=== PATIENT | male | born 1950 | race Caucasian/White ===

== ENCOUNTER 2020-02-20 15:26 | Outpatient (CLI) | payer MEDICARE, OTHER, SELFPAY ==
--- NOTE | ~2020-02-20 | XR_ITS ---
XR ankle RT min 3V DATE: 02/20/2020 16:01 INDICATION: Right ankle pain, swelling TECHNIQUE: 4 views COMPARISON: None FINDINGS: There is prominent medial soft tissue swelling of the ankle. No recent fracture or dislocation of the ankle or disruption of the ankle mortise is detected. There is no periosteal reaction or bone destruction. There is an approximately 2 mm bony density adjacent t o the medial tip of the medial malleolus which may represent a small old fracture fragment, accessory ossicle or less likely an intra-articular loose body. Mild posterior calcaneal enthesopathy. IMPRESSION: Medial soft tissue swelling 2 mm bony density adjacent to medial tip of medial malleolus, possibly a small old fracture fragment or accessory ossicle, less likely an intra-articular loose body Reviewed, dictated and finalized at location A. IMPRESSION: Medial soft tissue swelling 2 mm bony density adjacent to medial tip of medial malleolus, possibly a small old fracture fragment or accessory ossicle, less likely an intra-articular loos e body
== END 2020-02-20 15:27 | disposition home or self-care (01) ==
LOC: ANHIMG 15:32
PROVIDERS: PCP Family Medicine; Visit Provider Physician Assistant
DX: M25.471 Effusion, right ankle (principal); M79.89 Other specified soft tissue disorders
CPT/HCPCS: 73610

== ENCOUNTER 2020-03-11 21:03 | Inpatient (IN) | payer MEDICARE, OTHER, SELFPAY ==
--- NOTE | ~2020-03-11 | NM_ITS ---
EXAMINATION: NM mary stress w perfusion DATE: 03/12/2020 16:09 INDICATION: Chest pain TECHNIQUE: Rest images were obtained following intravenous administration of 9.7 mCi Tc99m tetrofosmi n (Myoview). The patient was infused intravenously with Lexiscan (Regadenoson). Then, 31.7 mCi Tc99m tetrofosmin (Myoview) was administered intravenously, and stress images were obtained. Data was recon structed into short axis and horizontal and vertical long axis SPECT images. Gated SPECT images were also obtained. COMPARISON: None. FINDINGS: Moderate severity reversible perfusion defects at the mid inferolateral and basilar inferio r segments and partially reversible perfusion defect at the basilar inferolateral segments consistent with ischemia superimposed over a small basilar inferolateral infarct. There is normal left ventric ular chamber size, wall motion and ejection fraction. Left ventricular ejection fraction measures 54 %. IMPRESSION: 1. Small basilar inferolateral infarct with surrounding ischemia which extends more anteriorly in the basilar inferolateral segment as well as into the adjacent mid inferolateral and basilar inferior se gments. 2. Left ventricular ejection fraction measuring 54%. Reviewed, dictated and finalized at location B. IMPRESSION: 1. Small basilar inferolateral infarct with surrounding ischemia which extends more anteriorly in the basilar inferolateral segment as well as into the adjace nt mid inferolateral and basilar inferior segments. 2. Left ventricular ejection fraction measuring 54%.
--- NOTE | ~2020-03-11 | XR_ITS ---
XR chest 2V DATE: 03/11/2020 22:21 INDICATION: Chest pain, shortness of breath TECHNIQUE: PA and lateral views COMPARISON: 01/19/2013 AP and lateral chest FINDINGS: Normal heart size. There is aortic calcification and mild unfolding. No hilar or mediasti nal enlargement. No pulmonary infiltrate or consolidation, pulmonary vascular congestion or pleural effusion or pneumothorax. There is degenerative spurring of the thoracic spine. IMPRESSION: No active cardiopulmonary disease Reviewed, dictated and finalized at location A.
--- NOTE | ~2020-03-11 | US_ITS ---
EXAMINATION: US arterial duplex LE RT DATE: 03/14/2020 09:27 INDICATION: Right groin bruit one day post cardiac catheterization. TECHNIQUE: Multiple grayscale and Doppler ultrasound images of the vessels at the right groin were ob tained. COMPARISON: None FINDINGS: The right common femoral, superficial femoral, profunda femoral and greater saphenous veins at the [facility] groin are patent and compressible with normal venous waveforms. No arterialization to suggest art eriovenous fistula. Normal arterial waveforms in the right common femoral, superficial femoral and pr ofunda femoral arteries. No hematoma or pseudoaneurysm. IMPRESSION: 1. Normal study. No hematoma, pseudoaneurysm or AV fistula. Reviewed, dictated and finalized at location B.
[2020-03-11 21:15] VITALS: BP 194/88; PULSE 66; RESP 16; TEMP 36.8; O2SAT 98
--- NOTE | 2020-03-11 21:18 | ECG_ITS ---
Measurements Intervals [place] Rate: 64 P: 39 WV: 185 QRS: -1 QRSD: 91 T: 11 QT: 400 QTc: 414 Interpretive Statements SINUS RHYTHM EARLY PRECORDIAL R/S TRANSITION BORDERLINE T WAVE ABNORMALITY- INFERIOR LEADS BORDERLINE ECG Electronically Signed On 03-12-2020 7:07:59 CDT by Yusuf Deluca D.O.
[2020-03-11 21:28] LABS: Basophils Percent Auto 0.4 % (0.2-1.2); Eosinophils Absolute Auto 0.2 K/mm3 (0-0.3); Eosinophils Percent Auto 5.3 % (0-4.4); Hematocrit 43.1 % (42.0-52.0); Hemoglobin 14.4 g/dL (14.0-18.0); Lymphocytes Absolute Auto 1.22 K/mm3 (0.9-3.2); Mean Corpuscular HGB Conc 33.4 g/dl (32-36); Mean Corpuscular Hemoglobin 28.1 pg (26-34); Mean Platelet Volume 9.7 fl (7.4-10.4); Monocytes Absolute Auto 0.3 K/mm3 (0.1-0.6); Monocytes Percent Auto 6.9 % (2.6-8.5); Neutrophils Absolute Auto 2.7 K/mm3 (1.3-6.7); Neutrophils Percent Auto 60.4 % (45.5-73.1); Platelet Count Result 186 k/mm3 (150-375); Red Blood Count 5.13 M/mm3 (4.6-6.20); Red Cell Distribution Width 13.2 % (11.5-14.5); White Blood Count 4.5 K/mm3 (4.5-10.0)
[2020-03-11 21:39] LABS: Partial Thromboplastin Time 28.5 SECONDS (22.3-36.8)
[2020-03-11 21:41] LABS: Anion Gap 6 mmol/L (8-16); Blood Urea Nitrogen 12 mg/dL (9-20); Calcium 8.8 mg/dL (8.4-10.2); Carbon Dioxide 29 mmol/L (22-30); Chloride 102 mmol/L (98-107); Estimated Glomerular Filt Rate > 60; Glucose 127 mg/dL (75-110); Potassium 3.6 mmol/L (3.4-5.0); Sodium 137 mmol/L (137-145)
[2020-03-11] MEDS: ASPIRIN 81 MG CHEWABLE TABLET 324 MG PO (21:51)
[2020-03-11] MEDS: NITROGLYCERIN SL 0.4 MG TABLET SUBLINGUAL (21:52)
[2020-03-11 21:53] LABS: Troponin I < 0.012 ng/mL (0.000-0.034)
[2020-03-11 21:54] VITALS: BP 160/105; PULSE 61; RESP 18; O2SAT 96
[2020-03-11 22:09] VITALS: BP 149/91; PULSE 67; RESP 18; O2SAT 94
--- NOTE | 2020-03-11 22:11 | PC.NURSE ---
second nitro given
[2020-03-11 22:24] VITALS: BP 142/92; PULSE 60; RESP 16; O2SAT 93
[2020-03-12] VITALS (20 sets, daily range): BP systolic 110–171; BP diastolic 73–94; PULSE 48–97; RESP 16–20; TEMP 35.9–36.7; O2SAT 95–100; BMI 23.2
--- NOTE | 2020-03-12 | ECHO_ITS ---
Patient Info Name: Joe Wellington Age: 70 years : 1950 Gender: Male Ht: 74 in Wt: 180 lbs BSA: 2.06 m2 HR: 59 bpm BP: 110 / 73 mmHg Heart Rhythm: Sinus Rhythm Technical Quality: Good Exam Date: 03/12/2020 4:26 PM Exam Location: [facility] Pulmonary Exam Room: [facility] Patient Status: Outpatient Admit Date: 03/12/2020 Staff Ordering Physician: Weston Baker MD [employer] Solution Architect: Dulce Desouza RCS Attending Provider: Scott Sánchez MD Referring Physician: Samuel CODY; Exam Type: CA echo doppler color flow Study Info Indications - CHEST PAIN Complete two-dimensional, color flow and Doppler transthoracic echocardiogram is performed. Summary 1. Complete two-dimensional, color flow and Doppler transthoracic echocardiogram is performed. 2. Left ventricular chamber dimension is normal. 3. Left ventricular systolic function is normal, estimated at 60-65%. 4. There is mildly increased left ventricular wall thickness. 5. The left ventricular diastolic function is grade I diastolic dysfunction. 6. The basal inferolateral wall, and mid inferolateral wall are hypokinetic. 7. There is mild mitral valve regurgitation. 8. There is mild tricuspid valve regurgitation. Left Ventricle Left ventricular chamber dimension is normal. Left ventricular systolic function is normal, estimated at 60-65%. There is mildly increased left ventricular wall thickness. The left ventricular diastolic function is grade I diastolic dysfunction. The basal inferolateral wall, and mid inferolateral wall are hypokinetic. All other casiano appear normal. Right Ventricle Right ventricular chamber dimension is normal. Right ventricular systolic function is normal. Left Atria Left atrial chamber dimension is normal. Right Atria Right atrial chamber dimension is normal. Atrial Septum Intact interatrial septum visualized by color flow imaging. Aortic Valve The aortic valve is trileaflet. There is mild aortic valve sclerosis. There is no aortic valve stenosis. There is trace aortic valve regurgitation. Pulmonic Valve The pulmonic valve is normal. There is no pulmonic valve stenosis. There is trace pulmonic regurgitation. Mitral Valve The mitral valve has thickened leaflets. There is no mitral valve stenosis. There is mild mitral valve regurgitation. Tricuspid Valve The tricuspid valve leaflets are normal. There is no significant tricuspid valve stenosis. There is mild tricuspid valve regurgitation. No pulmonary hypertension, estimated pulmonary arterial systolic pressure is 25 mmHg. Pericardium/Pleural The pericardium appears normal. There is no pericardial effusion. Inferior Vena Cava Normal inferior vena cava with >50% collapse upon inspiration consistent with normal right atrial pressure, 10 mmHg. Aorta The aortic root size at the sinus of Valsalva is normal. The prox ascending aorta size is normal. Left Ventricular Outflow Tract Name Value Normal LVOT 2D LVOT Diameter 2.1 cm LVOT Doppler LVOT Peak Gradient 4 mmHg LVOT Mean Gradient
--- NOTE | 2020-03-12 00:29 | ED.CHESTPAIN ---
HPI - Chest Pain General Chief Complaint: Chest Pain Stated Complaint: chest pain Time Seen by Provider: 03/11/20 21:22 History of Present Illness HPI narrative: Patient is a 70-year-old male who presents ER with chest pain. Began at 10 AM. Has had it intermittently throughout the day. Pressure in the center of his chest like somebody sitting on him. Associated with some nausea. No shortness of breath/vomiting/diaphoresis. Has history of SD x2 in the . Patient has not found any aggravating or alleviating factors. He does note that his systolic blood pressure was running in the 190s earlier today. Related Data Home Medications Medication Instructions Recorded Confirmed diclofenac sodium 75 mg 75 mg PO BID 07/19/19 03/12/20 tablet,delayed release multivitamin 1 tablet PO DAILY 07/19/19 03/12/20 cetirizine [Zyrtec] 10 mg PO HS 03/12/20 03/12/20 lisinopril 5 mg PO HS 03/12/20 03/12/20 pregabalin [Lyrica] 150 mg PO HS 03/12/20 03/12/20 Allergies Allergy/AdvReac Type Severity Reaction Status Date / Time tramadol Allergy Mild SEIZURE Verified 02/28/20 11:52 Review of Systems Review of Systems: All systems reviewed & are unremarkable except as noted in HPI and below Constitutional: Constitutional: Denies chills, Denies fever(s) and Denies weakness ENT: Denies nasal congestion and Denies sore throat Cardiovascular: Cardiovascular: Reports chest pain, Denies rapid heart rate and Denies radiating jaw, neck or arm pain Respiratory: Respiratory: Denies cough, Denies dyspnea and Denies wheezing Gastrointestinal: Gastrointestinal: Denies abdominal pain, Reports nausea and Denies vomiting [facility] Past Medical History Medical History Actinic keratoses Adhesion of intestine (~1969) Essential (primary) hypertension Myocardial infarction Wrist injury (~1968) Surgical History Surgical History History of esophagogastroduodenoscopy (EGD) Family History Family History Mother Diabetes mellitus Patient's mother is Family history of cardiovascular disease Father Patient's father is Social History Social History Smoking status: Never smoker Alcohol intake: never Substance use: never Substance use type: does not use Gender identity (if verbalized by the patient): Male Spiritual care concerns: No Exam Narrative: Exam Narrative: GENERAL: Well-appearing, well-nourished, and in no acute distress. HEAD: Normocephalic, atraumatic. ENT: Mucous membranes moist. CHEST: Clear to auscultation. No respiratory distress. HEART: Regular rate and rhythm. Normal peripheral pulses. ABDOMEN: Soft, nontender, nondistended. EXTREMITIES: Normal range of motion. No edema. SKIN: Warm, dry, no rash. NEURO: Alert and oriented x3. Course Course Emergency Course: Pain resolved with sublingual nitro. Blood pressure improved. We will plan on observation for chest pain given history of SD and low blood pressures with chest pain. Vital Signs Vital signs: Vital Signs Temperature 98.2 F 03/11/20 21:15 Pulse Rate 66 03/11/20 21:15 Respiratory Rate 16 03/11/20 21:15 Blood Pressure 194/88 H 03/11/20 21:15 Pulse Oximetry 98 03/11/20 21:15 Temperature 98.0 F 03/12/20 02:48 Pulse Rate 56 L 03/12/20 06:00 Respiratory Rate 20 03/12/20 02:48 Blood Pressure 171/86 H 03/12/20 02:48 Pulse Oximetry 95 03/12/20 02:48 MDM - Chest Pain Lab Data Result diagrams: 03/12/20 03:08 03/11/20 21:21 Labs: Lab Results 03/11/20 03/11/20 03/11/20 Range/Units 21:21 21:21 21:21 WBC 4.5 (4.5-10.0) K/mm3 RBC 5.13 (4.6-6.20) M/mm3 Hgb 14.4 (14.0-18.0) g/dL Hct 43.1 (42.0-52.0) % MCV 84.0 (80-100) fl MCH 28.1
[2020-03-12 00:51] LABS: Troponin I < 0.012 ng/mL (0.000-0.034)
--- NOTE | 2020-03-12 01:09 | ECG_ITS ---
Measurements Intervals [place] Rate: 55 P: 45 MO: 193 QRS: 2 QRSD: 90 T: 4 QT: 417 QTc: 402 Interpretive Statements SINUS BRADYCARDIA BORDERLINE T WAVE ABNORMALITY- INFERIOR LEADS BORDERLINE ECG Electronically Signed On 03-12-2020 7:14:46 CDT by Yusuf Deluca D.O.
--- NOTE | 2020-03-12 01:10 | PM.IMHP ---
H&P: HPI History of Present Illness Date/Time: 03/12/20 01:10 Chief complaint: chest pain Narrative: This is a pleasant 70 year old male with known history of CAD+ s/p [place] x 2 who presented to the hospital with a complaint of midsternal chest pain that started this morning around 10 am and has continued throughout the day. He describes his chest pain as pressure like as if someone was sitting on his chest. He denies that his chest pain radiates anywhere. Associated symptoms include nausea and 5 episodes of nonbloody emesis. On arrival to the ER tonight the patient was hypertensive but this resolved with nitroglycerin. He has had a distant EGD in the past when he had his esophagus dilated. On further questioning the patient denies any fevers, chills, cough, shortness of breath, abdominal pain, dysuria, hematuria, diarrhea, rectal bleeding, LE swelling or pain. The patient was evaluated in the ER and his initial troponin was negative. Review of Systems Review of Systems: All systems reviewed & are unremarkable except as noted in HPI and below PMFSH Past Medical History Medical History Actinic keratoses Adhesion of intestine (~1969) Essential (primary) hypertension Myocardial infarction Wrist injury (~1968) Surgical History Surgical History History of esophagogastroduodenoscopy (EGD) Family History Family History Mother Diabetes mellitus Patient's mother is Family history of cardiovascular disease Father Patient's father is Social History Social History Smoking status: Never smoker Alcohol intake: never Substance use: never Substance use type: does not use Gender identity (if verbalized by the patient): Male Spiritual care concerns: No Meds Home Medications and Allergies Home Medications Medication Instructions Recorded Confirmed Type diclofenac sodium 75 mg 75 mg PO BID 07/19/19 03/12/20 History tablet,delayed release multivitamin 1 tablet PO DAILY 07/19/19 03/12/20 History cetirizine [Zyrtec] 10 mg PO HS 03/12/20 03/12/20 History lisinopril 5 mg PO HS 03/12/20 03/12/20 History pregabalin [Lyrica] 150 mg PO HS 03/12/20 03/12/20 History Allergies Allergy/AdvReac Type Severity Reaction Status Date / Time tramadol Allergy Mild SEIZURE Verified 02/28/20 11:52 Vital Signs Vital Signs - 24 hr 03/11/20 21:15 03/11/20 21:54 03/11/20 22:09 Temperature 36.8 C Pulse Rate 66 61 67 Respiratory Rate 16 18 18 Blood Pressure 194/88 H 160/105 H 149/91 H Pulse Oximetry 98 96 94 03/11/20 22:24 03/12/20 00:15 03/12/20 00:35 Temperature Pulse Rate 60 56 L 72 Respiratory Rate 16 16 20 Blood Pressure 142/92 H 132/84 129/94 H Pulse Oximetry 93 96 100 Exam Const: General: cooperative, alert, awake, ill appearing, tired appearing and uncomfortable Nutritional Appearance: well nourished Orientation/consciousness: patient oriented x3 HENMT: Head: normal to inspection General nose exam: Normal external nose present Face and sinus: normal facial exam Mouth: Yes Normal oral and palatal mucosa present and Yes oropharynx normal Eyes: Pupils: Equal, round and reactive pupils present EOM: EOMs intact bilaterally Neck: Neck: supple and no JVD Thyroid: thyroid normal Lymphatic: lymphadenopathy not noted Resp: Effort & Inspection: normal respiratory effort Auscultation: clear to auscultation bilaterally Cardio: Rate: regular rate Rhythm: regular rhythm Heart sounds: no murmurs GI: Inspection: normal to inspection Auscultation: normal bowel sounds Skin: General skin exam: normal color and no rashes or lesions noted Neuro: General: patient oriented x3 Cranial nerves: Yes CN's II-XII intact bilaterally and Yes Equal, round and
--- NOTE | 2020-03-12 03:09 | ADMGEN ---
This patient, Joe Wellington, was admitted to IMU Room 207-01. Patient/family oriented to hospital policies and general routines including ID bracelet, bed and alarms, visiting hours, pain management, procedures, bathroom and other care routines, personal items, smoking policy, room service/diet, and visiting hours. Valuables list has been completed. Information on how to activate the Rapid Response Team has been discussed. Patient/Family are encouraged to report perceived risks to care and to ask questions if they do not understand what they are told or what they should do.
[2020-03-12 03:34] LABS: Basophils Percent Auto 0.4 % (0.2-1.2); Eosinophils Absolute Auto 0.2 K/mm3 (0-0.3); Eosinophils Percent Auto 4.2 % (0-4.4); Hematocrit 42.1 % (42.0-52.0); Hemoglobin 13.9 g/dL (14.0-18.0); Immature Granulocyte Absolute 0.02 K/mm3 (0.00-0.031); Immature Granulocyte Percent A 0.4 % (0-0.5); Lymphocytes Absolute Auto 1.49 K/mm3 (0.9-3.2); Lymphocytes Percent Auto 28.2 % (18.3-44.2); Mean Corpuscular Hemoglobin 28.1 pg (26-34); Mean Corpuscular Volume 85.1 fl (80-100); Mean Platelet Volume 10.3 fl (7.4-10.4); Monocytes Absolute Auto 0.4 K/mm3 (0.1-0.6); Neutrophils Absolute Auto 3.2 K/mm3 (1.3-6.7); Neutrophils Percent Auto 59.8 % (45.5-73.1); Platelet Count Result 192 k/mm3 (150-375); Red Blood Count 4.95 M/mm3 (4.6-6.20); Red Cell Distribution Width 13.3 % (11.5-14.5); White Blood Count 5.3 K/mm3 (4.5-10.0)
[2020-03-12] MEDS: PREGABALIN 75 MG CAPSULE 150 MG PO ×2 (03:47→21:43)
[2020-03-12] MEDS: LORATADINE 10 MG TABLET PO (03:47)
[2020-03-12] MEDS: SODIUM CHLORIDE 0.9% IV 1,000 ML 100 ML IV CONT (03:48)
[2020-03-12 04:02] LABS: Troponin I < 0.012 ng/mL (0.000-0.034)
[2020-03-12] MEDS: MULTIVITAMINS THERAPEUTIC TAB (*BKC) 1 TABLET PO (08:54)
--- NOTE | 2020-03-12 12:38 | EST_ITS ---
Patient Info Name: Joe Wellington Age: 70 years : 1950 Gender: Male Ht: 74 in Wt: 185 lbs BSA: 2.09 m2 Exam Date: 03/12/2020 2:45 PM Exam Location: [facility] Stress Patient Status: Inpatient Admit Date: 03/12/2020 Staff Ordering Physician: Weston Baker MD Attending Provider: LV PEREZ Exercise Technologist: Oscar Lazar, PAULINO, RT Exam Type: CA stress mary w NM Study Info Indications R07.89 - Other chest pain A regadenoson stress test was performed. Summary 1. Please correlate with nuclear medicine images, reported separately. 2. No abnormal ST-T wave changes with lexiscan. Protocol: Lexiscan Stress ECG Details Stage: REST Duration (min): 1 min : 54 sec HR (bpm): 50 SBP (mmHg): 129 DBP (mmHg): 74 Stage: REST Duration (min): 12 min : 11 sec HR (bpm): 57 SBP (mmHg): 129 DBP (mmHg): 74 Stage: STAGE 1 Duration (min): 1 min : 0 sec HR (bpm): 62 SBP (mmHg): 139 DBP (mmHg): 84 Stage: RECOVERY Duration (min): 1 min : 0 sec HR (bpm): 81 SBP (mmHg): 139 DBP (mmHg): 84 Stage: RECOVERY Duration (min): 2 min : 0 sec HR (bpm): 77 SBP (mmHg): 139 DBP (mmHg): 84 Stage: RECOVERY Duration (min): 3 min : 0 sec HR (bpm): 75 SBP (mmHg): 133 DBP (mmHg): 71 Stage: RECOVERY Duration (min): 3 min : 51 sec HR (bpm): 81 SBP (mmHg): 133 DBP (mmHg): 71 Rest HR: 57 bpm Peak HR: 83 bpm Rest Sys BP: 129 mmHg Peak Sys BP: 139 mmHg Max Pred HR: 148 bpm % Max Pred HR: 56 % Target HR: 126 bpm Max RPP: 11,537 bpm*mmHg Target HR Summary: Hemodynamic response to exercise was normal BP Response: Normal blood pressure response Termination Reason: Completed protocol Cardiac Symptoms: None Total Time: 1 min : 0 sec Rest Peterson BP: 74 mmHg Peak [place] BP: 84 mmHg Total Dose: 0.4 mg Resting ECG Sinus bradycardia. Stress ECG No abnormal ST/T wave changes with exercise. Arrhythmias None. Report Signatures
--- NOTE | 2020-03-12 12:40 | PM.CNCAR ---
Assessment and Plan Assessment and plan (1) Chest pain: Code(s): R07.9 - Chest pain, unspecified Status: Acute Assessment and Plan: very atypical for cardiac etiology. Likely GI. Given his uncertain an unclear past history of myocardial infarction though and other risk factors including age and hypertension, will proceed to an performed Lexiscan myocardial perfusion study for ischemic evaluation. 2D echocardiogram will also be ordered. Will check a fasting lipid panel. Start pantoprazole 40 mg p.o. daily especially given his history of chronic NSAID use. (2) Essential (primary) hypertension: Code(s): I10 - Essential (primary) hypertension Status: Chronic Assessment and Plan: Elevated and will increase his lisinopril to 10 mg p.o. daily. (3) Nausea & vomiting: Qualifiers: Vomiting type: unspecified Vomiting Intractability: non-intractable Qualified Code(s): R11.2 - Nausea with vomiting, unspecified Code(s): R11.2 - Nausea with vomiting, unspecified Status: Acute Assessment and Plan: Start PPI (4) Hypokalemia: Code(s): E87.6 - Hypokalemia Status: Acute Assessment and Plan: will replace 40 mEq p.o. x1 History of Present Illness History of Present Illness Consult date/time: 03/12/20 12:40 Requesting physician: Scott Sánchez MD Consult reason: chest pain Reason For Visit: chest pain Narrative: date of service: 03/12/2020 Reason for consultation: Chest pain History: Patient is a 70-year-old male who has a reported history of myocardial infarction in 1978 and 1982. Reportedly though a cardiac catheterization was performed after the last infarction and was told that he had no coronary disease. Details of this are not known at this point. He was under a great deal of stress around that time. Regardless he has not seen Cardiology routinely. He does have significant severe low back pain and has a pain pump in place. He woke up yesterday and started have some sensation of feeling like he could not take a deep breath. In his epigastric/ lower chest area he states that it felt like he had 3 or 4 encyclopedias on him. He vomited 3 times soon after eating breakfast and his chest symptoms then started. They continued throughout the day. He did tried to eat some oatmeal of any evening and then so shortly thereafter vomited again. He came to the hospital for further evaluation at that point. He had no radiation to his symptoms. He had no associated shortness of breath or diaphoresis. He was given several nitroglycerin in the ER without significant benefit. He had been working outside and had another episode of vomiting last week. In general he has had no exertional chest pain, shortness of breath, syncope, presyncope, paroxysmal nocturnal dyspnea, orthopnea, edema or palpitations. Currently he is feeling better and his symptoms have now resolved. Troponins are negative x3 and his EKG is unremarkable. Review of Systems Review of Systems: All systems reviewed & are unremarkable except as noted in HPI and below Constitutional: Constitutional: Denies weakness Eyes: Eyes: Denies blurry vision ENT: Denies Normal hearing present Cardiovascular: Cardiovascular: Reports chest pain Respiratory: Respiratory: Denies dyspnea Gastrointestinal: Gastrointestinal: Reports vomiting Genitourinary: Genitourinary: Denies dysuria Musculoskeletal: Musculoskeletal: Reports back pain and Denies neck pain Integumentary/Breasts: Skin/Breast: Denies dry skin Neurologic: Denies headache(s) Psychiatric: Psychiatric: Denies anxiety and Denies confusion Endocrine: Endocrine: Denies excessive sweating and Denies fatigue Hematologic/Lymphatic: Hematologic/Lymphatic: Denies easy bleeding Allergic/Immunologic: Allergic/Immunologic: Denies GI upset with certain foods PMFSH Past Medical History Medical History (Reviewed 03/12/20 @ 12:47
[2020-03-12 13:10] LABS: Cholesterol 123 mg/dL (0-200); HDL Direct 38 mg/dL; Triglycerides 75 mg/dL (<150)
[2020-03-12] MEDS: POTASSIUM CHLORIDE 20 MEQ TABLET 40 MEQ PO (13:15)
[2020-03-12 13:20] LABS: LDL Cholesterol Direct 67 mg/dL
--- NOTE | 2020-03-12 16:42 | PM.IMPN ---
Progress Note: A&P Assessment and Plan (1) Chest pain: Code(s): R07.9 - Chest pain, unspecified Status: Acute Assessment and Plan: Patient with CP at rest. Troponins negative x 3. EKG showing inferior T wave changes. Cardiology following. Lexiscan showing no abnormal ST-T wave changes but nuclear images showing moderate severity reversible perfusion defects at the mid inferolateral and basilar inferior segments and partially reversible perfusion defect at the basilar inferolateral segments consistent with ischemia superimposed over a small basilar inferolateral infarct. EF 54% but no wall motion abnormality. Discussed with cardiology. Plan for LHC in the morning. LDL 67. Resume ASA. Consider Lipitor. follow-up on echo results. (2) Nausea & vomiting: Qualifiers: Vomiting Intractability: non-intractable Vomiting type: unspecified Qualified Code(s): R11.2 - Nausea with vomiting, unspecified Code(s): R11.2 - Nausea with vomiting, unspecified Status: Acute Assessment and Plan: Nausea and vomiting has resolved. Antiemetics available as needed. (3) Essential (primary) hypertension: Code(s): I10 - Essential (primary) hypertension Status: Chronic Assessment and Plan: Patient's blood pressure was reviewed on 03/12 Blood pressure elevated at times Home lisinopril resumed and dose advanced to 10 mg daily (4) Non-sustained ventricular tachycardia: Code(s): I47.2 - Ventricular tachycardia Status: Acute Assessment and Plan: 4 beat run of NSVT. Check Mag level tomorrow. Continue tele. (5) DVT prophylaxis: Code(s): Z29.9 - Encounter for prophylactic measures, unspecified Status: Acute Assessment and Plan: SCDs in light of upcoming LH. Subjective Date/time seen: 03/12/20 16:42 Interval history: 70yo male with HTN here for CP. Patient back from [facility] now. He feels well. No further CP. no n/v. Not eaten yet. Unclear if he has CAD. He has a hx of DC in the early 1979's but states his last LHC in 1982 was clear. Exam Narrative: Exam Narrative: AF 96.7 126/74 55 20 99% ra Gen - NARD Chest - CTA bilaterally, nml RR CV - RRR S1/S2; Tele showing 4 beat run of NSVT Abd - Soft, NT/ND, Positive BS. pain pump noted right side of abdomen Ext - No pedal edema Neuro - Alert and oriented. Nonfocal exam. Psych - Nml mood and affect Skin - Warm and dry Objective Data Vital Signs Vital Signs: Vital Signs - 24 hr 03/11/20 21:15 03/11/20 21:54 03/11/20 22:09 Temperature 98.2 F Pulse Rate 66 61 67 Respiratory Rate 16 18 18 Blood Pressure 194/88 H 160/105 H 149/91 H Pulse Oximetry 98 96 94 03/11/20 22:24 03/12/20 00:15 03/12/20 00:35 Temperature Pulse Rate 60 56 L 72 Respiratory Rate 16 16 20 Blood Pressure 142/92 H 132/84 129/94 H Pulse Oximetry 93 96 100 03/12/20 02:48 03/12/20 03:14 03/12/20 04:00 Temperature 98.0 F Pulse Rate 97 58 L 59 L Respiratory Rate 20 Blood Pressure 171/86 H Pulse Oximetry 95 03/12/20 06:00 03/12/20 07:51 03/12/20 08:00 Temperature 97.8 F Pulse Rate 56 L 48 L 55 L Respiratory Rate 20 Blood Pressure 135/79 Pulse Oximetry 97 03/12/20 10:00 03/12/20 11:12 03/12/20 12:00 Temperature Pulse Rate 74 65 Respiratory Rate 20 Blood Pressure Pulse Oximetry 03/12/20 12:52 03/12/20 14:00 03/12/20 16:12 Temperature 97.5 F L 96.7 F L Pulse Rate 52 L 57 L 55 L Respiratory Rate 20 20 Blood Pressure 110/73 126/74 Pulse Oximetry 99 99 Intake/Output Intake/Output: Intake & Output 03/09/20 03/10/20 03/11/20 03/12/20 23:59 23:59 23:59 23:59 Intake Total 850 Output Total 400 Balance 450 Meds/Results Medications: Active Medications Generic Name Dose Route Start Last Admin Trade Name Freq PRN Reason Stop Dose Admin Acetaminophen 650 mg 03/12/20 00:42 Tylenol Tablet PO Q4H PRN
[2020-03-12] MEDS: ASPIRIN 81 MG CHEWABLE TABLET PO (17:29)
[2020-03-12] MEDS: BRIMONIDINE TARTRATE 0.2% OP SOLN 5 ML BTL 1 DROP EACH EYE (17:30)
[2020-03-12] MEDS: TIMOLOL MALEATE 0.5% OP SOLN 5 ML BOTTLE 1 DROP EACH EYE (17:30)
[2020-03-12] MEDS: lisinopriL 10 MG TABLET PO (21:44)
[2020-03-13] VITALS (20 sets, daily range): BP systolic 110–161; BP diastolic 66–86; PULSE 49–62; RESP 12–22; TEMP 35.7–36.4; O2SAT 10–100
[2020-03-13 05:58] LABS: Magnesium 2.2 mg/dL (1.6-2.3)
[2020-03-13 06:01] LABS: Anion Gap 4 mmol/L (8-16); Blood Urea Nitrogen 10 mg/dL (9-20); Calcium 8.4 mg/dL (8.4-10.2); Carbon Dioxide 27 mmol/L (22-30); Chloride 105 mmol/L (98-107); Estimated CRCL calculation 110 ml/min; Estimated Glomerular Filt Rate > 60; Glucose 116 mg/dL (75-110); Potassium 3.8 mmol/L (3.4-5.0); Sodium 136 mmol/L (137-145)
[2020-03-13] MEDS: SODIUM CHLORIDE 0.9% IV 500 ML 100 ML IV CONT (08:52)
[2020-03-13] MEDS: BRIMONIDINE TARTRATE 0.2% OP SOLN 5 ML BTL 1 DROP EACH EYE ×2 (08:52→16:49)
[2020-03-13] MEDS: TIMOLOL MALEATE 0.5% OP SOLN 5 ML BOTTLE 1 DROP EACH EYE ×2 (08:52→16:49)
[2020-03-13] MEDS: PANTOPRAZOLE 40 MG TABLET PO (08:54)
[2020-03-13] MEDS: ASPIRIN 81 MG CHEWABLE TABLET PO (08:55)
--- NOTE | 2020-03-13 09:27 | P.SEDATION_ITS ---
Moderate Sedation Note-Pt Data Patient Data Allergies Allergy/AdvReac Type Severity Reaction Status Date / Time tramadol Allergy Mild SEIZURE Verified 02/28/20 11:52 Home Medications Medication Instructions Recorded Confirmed Type diclofenac sodium 75 mg 75 mg PO BID 07/19/19 03/12/20 History tablet,delayed release multivitamin 1 tablet PO DAILY 07/19/19 03/12/20 History brimonidine-timolol [Combigan] 1 drp OPHTHALMIC (EYE) BID 03/12/20 03/12/20 History cetirizine [Zyrtec] 10 mg PO HS 03/12/20 03/12/20 History lisinopril 5 mg PO 03/12/20 03/12/20 History pregabalin [Lyrica] 150 mg PO 03/12/20 03/12/20 History Current Medications: Active Medications Acetaminophen (Tylenol Tablet) 650 mg PO Q4H PRN PRN Reason: Mild Pain (1-3) or Fever Hydrocodone Bitart/Acetaminophen ([place] 5-325 Mg) 1 tab PO Q4H PRN PRN Reason: Pain Rated 4-6 Aspirin (Aspirin Chewable) 81 mg PO DAILY@0800 [facility] Last Admin: 03/13/20 08:55 Dose: 81 mg Documented by: Brimonidine Tartrate (Alphagan 0.2% Op Soln) 1 drop EACH EYE BID [facility] Stop: 04/11/20 17:01 Last Admin: 03/13/20 08:52 Dose: 1 drop Documented by: Sodium Chloride (Normal Saline Iv) 500 mls @ 100 mls/hr IV CONT .Q5H [facility] Last Admin: 03/13/20 08:52 Dose: 100 mls/hr Documented by: Lisinopril (Prinivil) 10 mg PO [facility] Last Admin: 03/12/20 21:44 Dose: 10 mg Documented by: Loratadine (Claritin) 10 mg PO [facility] Morphine Sulfate (Morphine Sulfate Inj) 4 mg IV PUSH Q2H PRN PRN Reason: Pain Rated 7-10 Multivitamins Therapeutic (Multivitamins Therapeutic(*Bkc) 1 tablet PO DAILY [facility] Last Admin: 03/12/20 08:54 Dose: 1 tablet Documented by: Pantoprazole Sodium (Protonix) 40 mg [facility] Last Admin: 03/13/20 08:54 Dose: 40 mg Documented by: Pregabalin (Lyrica) 150 mg PO HS [facility] Last Admin: 03/12/20 21:43 Dose: 150 mg Documented by: Promethazine HCl (Phenergan Inj) 12.5 mg IV PUSH Q6H PRN PRN Reason: Nausea Timolol Maleate (Timoptic 0.5% Ophth Soln) 1 drop EACH EYE BID [facility] Stop: 04/11/20 17:01 Last Admin: 03/13/20 08:52 Dose: 1 drop Documented by: Sedation/Anesthesia: No previous sedation/anesthesia problems (including family history). [facility] Past Medical History Medical History Actinic keratoses Adhesion of intestine (~1969) Essential (primary) hypertension Myocardial infarction Wrist injury (~1968) Surgical History Surgical History History of esophagogastroduodenoscopy (EGD) Family History Family History Mother Diabetes mellitus Patient's mother is Family history of cardiovascular disease Father Patient's father is Social History Social History Smoking status: Never smoker Alcohol intake: never Substance use: never Substance use type: does not use Gender identity (if verbalized by the patient): Male Spiritual care concerns: No Mod Sed Physical Exam Physical Exam Pre Procedural Exam: Normal: Appearance, Eyes, Ears, Nose, Neck, Throat, Airway, Lungs, Heart Size, Heart Rate, Heart Rhythm, Neuro Exam, Abdomen, Liver, Kidneys, Spleen, Breasts, Genitalia, Extremities and Skin
--- NOTE | 2020-03-13 09:27 | WPDMODSED ---
Moderate Sedation Note-Pt Data Patient Data Allergies Allergy/AdvReac Type Severity Reaction Status Date / Time tramadol Allergy Mild SEIZURE Verified 02/28/20 11:52 Home Medications Medication Instructions Recorded Confirmed Type diclofenac sodium 75 mg 75 mg PO BID 07/19/19 03/12/20 History tablet,delayed release multivitamin 1 tablet PO DAILY 07/19/19 03/12/20 History brimonidine-timolol [Combigan] 1 drp OPHTHALMIC (EYE) BID 03/12/20 03/12/20 History cetirizine [Zyrtec] 10 mg PO HS 03/12/20 03/12/20 History lisinopril 5 mg PO 03/12/20 03/12/20 History pregabalin [Lyrica] 150 mg PO 03/12/20 03/12/20 History Current Medications: Active Medications Acetaminophen (Tylenol Tablet) 650 mg PO Q4H PRN PRN Reason: Mild Pain (1-3) or Fever Hydrocodone Bitart/Acetaminophen ([place] 5-325 Mg) 1 tab PO Q4H PRN PRN Reason: Pain Rated 4-6 Aspirin (Aspirin Chewable) 81 mg PO DAILY@0800 [facility] Last Admin: 03/13/20 08:55 Dose: 81 mg Documented by: Brimonidine Tartrate (Alph[place] 0.2% Op Soln) 1 drop EACH EYE BID [facility] Stop: 04/11/20 17:01 Last Admin: 03/13/20 08:52 Dose: 1 drop Documented by: Sodium Chloride (Normal Saline Iv) 500 mls @ 100 mls/hr IV CONT .Q5H [facility] Last Admin: 03/13/20 08:52 Dose: 100 mls/hr Documented by: Lisinopril (Prinivil) 10 mg PO [facility] Last Admin: 03/12/20 21:44 Dose: 10 mg Documented by: Loratadine (Claritin) 10 mg PO [facility] Morphine Sulfate (Morphine Sulfate Inj) 4 mg IV PUSH Q2H PRN PRN Reason: Pain Rated 7-10 Multivitamins Therapeutic (Multivitamins Therapeutic(*Bkc) 1 tablet PO DAILY [facility] Last Admin: 03/12/20 08:54 Dose: 1 tablet Documented by: Pantoprazole Sodium (Protonix) [facility] Last Admin: 03/13/20 08:54 Dose: 40 mg Documented by: Pregabalin (Lyrica) 150 mg PO HS [facility] Last Admin: 03/12/20 21:43 Dose: 150 mg Documented by: Promethazine HCl (Phenergan Inj) 12.5 mg IV PUSH Q6H PRN PRN Reason: Nausea Timolol Maleate (Timoptic 0.5% Ophth Soln) 1 drop EACH EYE BID [facility] Stop: 04/11/20 17:01 Last Admin: 03/13/20 08:52 Dose: 1 drop Documented by: Sedation/Anesthesia: No previous sedation/anesthesia problems (including family history). [facility] Past Medical History Medical History Actinic keratoses Adhesion of intestine (~1969) Essential (primary) hypertension Myocardial infarction Wrist injury (~1968) Surgical History Surgical History History of esophagogastroduodenoscopy (EGD) Family History Family History Mother Diabetes mellitus Patient's mother is Family history of cardiovascular disease Father Patient's father is Social History Social History Smoking status: Never smoker Alcohol intake: never Substance use: never Substance use type: does not use Gender identity (if verbalized by the patient): Male Spiritual care concerns: No Mod Sed Physical Exam Physical Exam Pre Procedural Exam: Normal: Appearance, Eyes, Ears, Nose, Neck, Throat, Airway, Lungs, Heart Size, Heart Rate, Heart Rhythm, Neuro Exam, Abdomen, Liver, Kidneys, Spleen, Breasts, Genitalia, Extremities and Skin Hours since solid foods: 8 Hours since liquid intake: 8 Internal Medicine - PN: Obj Da Vital Signs Vital Signs: Vital Signs - 24 hr 03/12/20 10:00 03/12/20 11:12 03/12/20 12:00 Temperature Pulse Rate 74 65 Respiratory Rate 20 Blood Pressure Pulse Oximetry 03/12/20 12:52 03/12/20 14:00 03/12/20 16:00 Temperature 36.4 C L Pulse Rate 52 L 57 L 69 Respiratory Rate 20 Blood Pressure 110/73 Pulse Oximetry 99 03/12/20 16:12 03/12/20 18:00 03/12/20 19:25 Temperature 35.9 C L 36.2 C L Pulse Rate 55 L 66 64 Respiratory Rate 20 20 Blood Pressure 126/74 136/80 Pulse
--- NOTE | 2020-03-13 09:28 | WPDHPUPDATE1 ---
History and Physical Update Update Date/Time: 03/13/20 09:28 History and Physical has been reviewed, including an updated exam of the patient. There are NO changes in the patient's condition. Risks, benefits, and alternatives have been discussed and questions answered. Patient agrees to proceed with procedure.
--- NOTE | 2020-03-13 09:28 | WPDCARDPROC ---
Cardiac Cath Procedure Note Date of procedure:: 03/13/20 Performing physician:: Conrad Argueta MD Indication:: abnormal stress test Brief clinical history:: 70-year-old male patient with past history of back surgery, hypertension and previous cardiac catheterization. he comes into the hospital chest pain. he had vomiting as well. underwent stress test that was abnormal. Procedure Procedure performed:: 1-Moderate sedation that started at 947am and ended at 1022 am total duration 35 minutes using 4mg of Versed and 75mcg fentanyl. The registered nurse was Willie Gimenez. 2-Selective left and right coronary angiogram. 3-Left heart catheterization with measurement of LVEDP and measurement of gradient across aortic valve. 4- deployment of a drug-eluting stent Xience 2.5 x 15 to mid diagonal branch reducing stenosis from 70% to 0% and DERRELL flow 3 before and after intervention. 4-Right common femoral arterial angiogram. 5-Deployment of 6 Iranian Angio-Seal. Sedation/Medication given:: Moderate sedation. Access site:: Right common femoral artery. Estimated blood loss:: 10cc Procedure note:: After informed consent patient was brought in to pathology lab technician with the was draped and prepped in usual manner. Moderate sedation was given and the right groin was infiltrated using 1% lidocaine. Five Iranian sheath was obtained using micropuncture needle and the modified Seldinger technique. Selective left coronary angiogram was done using JL4 catheter with the tip of the catheter placed in the left main coronary artery. Selective right coronary angiogram was done using JR4 catheter with the tip of the catheter placed to the right coronary artery. After that 5 Iranian pigtail catheter was advanced across the aortic valve into the left ventricle with measurement of LVEDP and measurement of gradient across aortic valve. Right common femoral arterial angiogram was done. after that the 5 Iranian sheath was exchanged for 6 Iranian sheath. Left main coronary artery was engaged using 6 Iranian CLS 3.5 guide catheter. Coronary louge wire was advanced to distal diagonal. direct stenting of the mid diagonal done using 2.5 x 15 stent with deployment under nominal pressure for 30 seconds. final angiogram shows excellent deployment of the stent. after the deployment 6 Iranian Angio-Seal. Findings:: 1- left coronary artery is a large artery that divides into large LAD, large circumflex artery. Left main has minimal irregularities. 2- left anterior descending artery is a large artery that runs and wraps around the apex. it has minimal irregularities. Medium size diagonal branch that has mid 60-70%. ostial 30%. 3- leftcircumflex artery is a large artery. it gives rise to large OM branch that has minimal irregularities. 4- right coronary artery is a large artery and dominant has mid 20%. 5- LVEDP was 7 mm Hg and no gradient across aortic valve. 6- opening arterial pressure was 132/69and closing pressure was 120/80 7- right femoral artery angiogram shows no significant disease in the right common femoral artery. Conclusion:: successful stenting of mid diagonal branch. Assessment and Plan Additional Plan continue risk factor modification for CAD.
--- NOTE | 2020-03-13 10:43 | ECG_ITS ---
Measurements Intervals [place] Rate: 49 P: 50 [place]: 204 QRS: 14 QRSD: 86 T: 17 QT: 441 QTc: 399 Interpretive Statements SINUS BRADYCARDIA EARLY PRECORDIAL R/S TRANSITION ABNORMAL ECG Electronically Signed On 03-13-2020 12:22:52 CDT by Yusuf Deluca D.O.
[2020-03-13] MEDS: SODIUM CHLORIDE 0.9% IV 1,000 ML 100 ML IV CONT (12:00)
--- NOTE | 2020-03-13 14:58 | PM.IMPN ---
Progress Note: A&P Assessment and Plan (1) Chest pain: Qualifiers: Chest pain type: chest pain due to myocardial ischemia Ischemic chest pain type: other angina pectoris type Qualified Code(s): I20.8 - Other forms of angina pectoris Code(s): R07.9 - Chest pain, unspecified Status: Acute Assessment and Plan: Patient with CP at rest. Troponins negative x 3. EKG showing inferior T wave changes. Cardiology following. Lexiscan showing no abnormal ST-T wave changes but nuclear images showing moderate severity reversible perfusion defects at the mid inferolateral and basilar inferior segments and partially reversible perfusion defect at the basilar inferolateral segments consistent with ischemia superimposed over a small basilar inferolateral infarct. EF 54% but no wall motion abnormality. Echo showing EF 60-65%, grade I diastolic dysfunction and HK basal inferolateral and mid inferolateral casiano. LDL 67. Plan for LHC. LHC completed today showing LAD with medium size diagonal branch that has mid 60-70%, ostial 30%; dominate RCA with mid 20%; otherwise minimal irregularities. Successful stenting of mid diagonal branch. Continue SCHUYLER inhibitor, ASA, Brilinta and will add Lipitor. (2) CAD (coronary artery disease): Qualifiers: Associated angina: with other forms of angina Coronary Disease-Associated Artery/Lesion type: [place] artery [place] vs. transplanted heart: [place] heart Qualified Code(s): I25.118 - Atherosclerotic heart disease of [place] coronary artery with other forms of angina pectoris Code(s): I25.10 - Atherosclerotic heart disease of [place] coronary artery without angina pectoris Status: Acute Assessment and Plan: As above. (3) Nausea & vomiting: Qualifiers: Vomiting Intractability: non-intractable Vomiting type: unspecified Qualified Code(s): R11.2 - Nausea with vomiting, unspecified Code(s): R11.2 - Nausea with vomiting, unspecified Status: Acute Assessment and Plan: Nausea and vomiting has resolved. Antiemetics available as needed. (4) Essential (primary) hypertension: Code(s): I10 - Essential (primary) hypertension Status: Chronic Assessment and Plan: Patient's blood pressure was reviewed on 03/13 Blood pressure well controlled Home lisinopril resumed and dose advanced to 10 mg daily (5) Non-sustained ventricular tachycardia: Code(s): I47.2 - Ventricular tachycardia Status: Acute Assessment and Plan: 4 beat run of NSVT but without recurrence. Mag level 2.2. Continue tele. (6) DVT prophylaxis: Code(s): Z29.9 - Encounter for prophylactic measures, unspecified Status: Acute Assessment and Plan: SCDs Subjective Date/time seen: 03/13/20 14:58 Interval history: 70yo male with HTN here for CP. Patient back from [facility] done earlier today. He feels well. Was feeling SOB when lying down but better once up. has been up to the chair. Eating okay. No n/v. No CP. Slight pain at the catheterization site. Exam Narrative: Exam Narrative: AF 97.1 143/73 59 99% ra Gen - NARD lying almost flat in bed Chest - CTA bilaterally, nml RR CV - RRR S1/S2; Tele showing no significant dysrhythmias Abd - Soft, NT/ND, Positive BS. Ext - No pedal edema. no hematoma noted in the right groin. 1+ right PT pulses Neuro - Alert and oriented. Nonfocal exam. Psych - Nml mood and affect Skin - Warm and dry Objective Data Vital Signs Vital Signs: Vital Signs - 24 hr 03/12/20 16:00 03/12/20 16:12 03/12/20 18:00 Temperature 96.7 F L Pulse Rate 69 55 L 66 Respiratory Rate 20 Blood Pressure 126/74 Pulse Oximetry 99 03/12/20 19:25 03/12/20 20:00 03/12/20 22:00 Temperature 97.1 F L Pulse Rate 64 60 57 L Respiratory Rate 20 Blood Pressure 136/80 Pulse Oximetry 96 03/12/20 23:49 03/13/20 01:24 03/13/20 03:42 Temperature 97.8
[2020-03-13] MEDS: ATORVASTATIN 40 MG TABLET PO (16:49)
[2020-03-13] MEDS: lisinopriL 10 MG TABLET PO (21:34)
[2020-03-13] MEDS: TICAGRELOR 90 MG TABLET PO (21:34)
[2020-03-13] MEDS: LORATADINE 10 MG TABLET PO (21:34)
[2020-03-13] MEDS: PREGABALIN 75 MG CAPSULE 150 MG PO (21:34)
[2020-03-14 01:43] VITALS: PULSE 56
[2020-03-14 03:39] VITALS: BP 158/77; PULSE 58; RESP 20; TEMP 36.6; O2SAT 97
[2020-03-14 05:49] VITALS: PULSE 48
[2020-03-14 08:00] VITALS: BP 139/77; PULSE 56; PULSE 60; RESP 16; TEMP 36.4; O2SAT 98
--- NOTE | 2020-03-14 08:52 | PC.NURSE ---
Upon assessment I heard a bruit in the right groin puncture site. Notified Dr. Baker. Ordered STAT ultra sound of puncture site.
[2020-03-14] MEDS: ATORVASTATIN 40 MG TABLET PO (08:55)
[2020-03-14] MEDS: TIMOLOL MALEATE 0.5% OP SOLN 5 ML BOTTLE 1 DROP EACH EYE (08:55)
[2020-03-14] MEDS: TICAGRELOR 90 MG TABLET PO (08:55)
[2020-03-14] MEDS: BRIMONIDINE TARTRATE 0.2% OP SOLN 5 ML BTL 1 DROP EACH EYE (08:55)
[2020-03-14] MEDS: PANTOPRAZOLE 40 MG TABLET PO (08:55)
[2020-03-14] MEDS: ASPIRIN 81 MG CHEWABLE TABLET PO (08:55)
[2020-03-14] MEDS: MULTIVITAMINS THERAPEUTIC TAB (*BKC) 1 TABLET PO (08:55)
[2020-03-14 10:00] VITALS: PULSE 55
--- NOTE | 2020-03-14 10:53 | PC.NURSE ---
Pt had STAT ultrasound of right groin. Results negative.
--- NOTE | 2020-03-14 11:13 | PM.PNCARD ---
Progress Note: A&P Assessment and Plan (1) Chest pain: Qualifiers: Chest pain type: chest pain due to myocardial ischemia Ischemic chest pain type: other angina pectoris type Qualified Code(s): I20.8 - Other forms of angina pectoris Code(s): R07.9 - Chest pain, unspecified Status: Acute Assessment and Plan: [place] 03/12/2020:Small basilar inferolateral infarct with surrounding ischemia which extends more anteriorly in the basilar inferolateral segment as well as into the adjacent mid inferolateral and basilar inferior segments. Left ventricular ejection fraction measuring 54% cardiac catheterization 03/13/2020: 1- left coronary artery is a large artery that divides into large LAD, large circumflex artery. Left main has minimal irregularities. 2- left anterior descending artery is a large artery that runs and wraps around the apex. it has minimal irregularities. Medium size diagonal branch that has mid 60-70%. ostial 30%. 3- leftcircumflex artery is a large artery. it gives rise to large OM branch that has minimal irregularities. 4- right coronary artery is a large artery and dominant has mid 20%. Intervention with drug-eluting stent Xience 2.5 x 15 to mid diagonal branch reducing stenosis from 70% to 0% and DERRELL flow 3 before and after intervention. Denied any chest discomfort or shortness of breath. Right femoral bruit noted. Arterial ultrasound revealed no hematoma, pseudoaneurysm or AV fistula. Continue aspirin 81 mg daily, Brilinta 90 mg every 12 hours, atorvastatin 40 mg daily, lisinopril 10 mg daily. Discontinue diclofenac. (2) Essential (primary) hypertension: Code(s): I10 - Essential (primary) hypertension Status: Chronic Assessment and Plan: Better controlled. Continue lisinopril 10 mg daily (3) Nausea & vomiting: Qualifiers: Vomiting Intractability: non-intractable Vomiting type: unspecified Qualified Code(s): R11.2 - Nausea with vomiting, unspecified Code(s): R11.2 - Nausea with vomiting, unspecified Status: Acute Assessment and Plan: Continue PPI. (4) Hypokalemia: Code(s): E87.6 - Hypokalemia Status: Acute Assessment and Plan: Supplemented Additional Plan OK to discharge from cardiac standpoint See discharge instructions for follow-up Plan discussed Dr. Baker 1110 03/14/2020 . Subjective Date/time seen: 03/14/20 11:13 Interval history: Follow up for: Chest pain and vomiting. Stay drug-eluting stent to diagonal 03/13/2020 Date of service: 03/14/2020 Subjective: Feeling very well. Denied any shortness of breath, chest discomfort, abdominal discomfort nausea, vomiting, lightheadedness or palpitations. Does have some tenderness at the right groin site Review of Systems Review of Systems: All systems reviewed & are unremarkable except as noted in HPI and below Constitutional: Constitutional: Denies excessive sweating, Denies fatigue, Denies headache(s) and Denies weakness Eyes: Eyes: Denies blurry vision ENT: Denies Normal hearing present, Denies headache(s) and Denies neck pain Cardiovascular: Cardiovascular: Denies chest pain, Denies dyspnea and Denies dyspnea on exertion Respiratory: Respiratory: Denies dyspnea Gastrointestinal: Gastrointestinal: Denies nausea and Denies vomiting Genitourinary: Genitourinary: Denies dysuria Musculoskeletal: Musculoskeletal: Reports back pain and Denies neck pain Integumentary/Breasts: Skin/Breast: Denies dry skin Neurologic: Denies Normal hearing present, Denies confusion, Denies headache(s) and Denies weakness Psychiatric: Psychiatric: Denies anxiety and Denies confusion Endocrine: Endocrine: Denies excessive sweating and Denies fatigue Hematologic/Lymphatic: Hematologic/Lymphatic: Denies easy b
[2020-03-14 12:00] VITALS: BP 132/80; PULSE 50; PULSE 54; RESP 16; TEMP 36.6; O2SAT 96
--- NOTE | 2020-03-14 12:44 | PM.DS ---
DS: Admitting Diagnosis Admitting Diagnosis Admitting Diagnosis: chest pain DS: Discharge Diagnosis Discharge Diagnosis (1) Chest pain: Qualifiers: Chest pain type: chest pain due to myocardial ischemia Ischemic chest pain type: other angina pectoris type Qualified Code(s): I20.8 - Other forms of angina pectoris Code(s): R07.9 - Chest pain, unspecified Status: Acute Assessment and Plan: Patient with CP at rest felt to be angina. Troponins negative x 3. EKG showing inferior T wave changes. Cardiology following. Lexiscan showing no abnormal ST-T wave changes but nuclear images showing moderate severity reversible perfusion defects at the mid inferolateral and basilar inferior segments and partially reversible perfusion defect at the basilar inferolateral segments consistent with ischemia superimposed over a small basilar inferolateral infarct. EF 54% but no wall motion abnormality. Echo showing EF 60-65%, grade I diastolic dysfunction and HK basal inferolateral and mid inferolateral casiano. LDL 67. LHC completed 03/13/20 showing LAD with medium size diagonal branch that has mid 60-70%, ostial 30%; dominate RCA with mid 20%; otherwise minimal irregularities. Successful stenting of mid diagonal branch. Treated with SCHUYLER inhibitor, ASA, Brilinta and Lipitor. Has right femoral bruuit but US showing no hematoma, pseudoaneurysm or AV fistula. (2) CAD (coronary artery disease): Qualifiers: Coronary Disease-Associated Artery/Lesion type: [place] artery [place] vs. transplanted heart: [place] heart Associated angina: with other forms of angina Qualified Code(s): I25.118 - Atherosclerotic heart disease of [place] coronary artery with other forms of angina pectoris Code(s): I25.10 - Atherosclerotic heart disease of [place] coronary artery without angina pectoris Status: Acute Assessment and Plan: As above. (3) Nausea & vomiting: Qualifiers: Vomiting Intractability: non-intractable Vomiting type: unspecified Qualified Code(s): R11.2 - Nausea with vomiting, unspecified Code(s): R11.2 - Nausea with vomiting, unspecified Status: Acute Assessment and Plan: Nausea and vomiting has resolved. Antiemetics available as needed. (4) Essential (primary) hypertension: Code(s): I10 - Essential (primary) hypertension Status: Chronic Assessment and Plan: Patient's blood pressure was monitored closely Blood pressure remained reasonably well controlled Home lisinopril was resumed and dose advanced to 10 mg daily (5) Non-sustained ventricular tachycardia: Code(s): I47.2 - Ventricular tachycardia Status: Acute Assessment and Plan: 4 beat run of NSVT but without recurrence. Mag level okay. DS: Summary Hospital Course Reason for hospitalization: 70yo male here for chest pain. Please see H&P for details Hospital Course: as above Time Spent with Patient Time attestation: Total time spent providing and/or coordinating discharge services: 35 minutes Time spent: Greater than 30 minutes Specific discharge activities: discussed with Cardiology. long discussion with patient and family explaining discharge instructions. Exam Narrative: Exam Narrative: AF 97.8 132/80 54 16 96% Gen - NARD Chest - CTA bilaterally, nml RR CV - RRR S1/S2; Tele showing occasional PVCs Abd - Soft, NT/ND, Positive BS. Ext - No pedal edema. no hematoma noted in the right groin. right femoral bruit. Neuro - Alert and oriented. Nonfocal exam. Psych - Nml mood and affect Skin - Warm and dry Discharge Plan Discharge Attending physician on discharge: Alphonso Cardenas Consulting providers: Weston Baker Discharging Clinician: Alphonso Cardenas Anticipated Discharge Date/Time: 03/14/20 13:03 Patient Disposition: Home, Self-Care Activity: other - see discharge instructions Diet: heart healthy Wound Care
== END 2020-03-14 14:05 | disposition home or self-care (01) | DRG 247 ==
LOC: ANHED 21:28 → ANHIMU 03-12 02:04
PROVIDERS: Internal Medicine Cardiovascular Disease; Admitting Provider Family Medicine; Emergency Provider Emergency Medicine; PCP Family Medicine; Visit Provider Internal Medicine
PROC: 4A023N7 Measurement of Cardiac Sampling and Pressure, Left Heart, Percutaneous Approach (ICD-10-PCS; CPT 93452; principal; 2020-03-13 10:00)
PROC: 027034Z Dilation of Coronary Artery, One Artery with Drug-eluting Intraluminal Device, Percutaneous Approach (ICD-10-PCS; 2020-03-13 10:00)
PROC: 027034Z Dilation of Coronary Artery, One Artery with Drug-eluting Intraluminal Device, Percutaneous Approach (ICD-10-PCS; 2020-03-13 10:00)
DX: I25.118 Atherosclerotic heart disease of native coronary artery with other forms of angina pectoris (principal); I47.2 Ventricular tachycardia; R11.2 Nausea with vomiting, unspecified; I10 Essential (primary) hypertension; E87.6 Hypokalemia; I25.2 Old myocardial infarction; Z79.899 Other long term (current) drug therapy
CPT/HCPCS: 36415; 71046; 78452; 80048; 80061; 83735; 84484; 85025; 85610; 85730; 93005; 93017; 93306; 93458; 93926; 96360; 96361; 99285; A9270; A9502; C1760; C1769; C1874; C1887; C1894; C9600; G0269; G0378; J0583; J1644; J2250; J2785; J3010; J7030; J7040

== ENCOUNTER 2020-04-24 11:00 | Outpatient (CLI) | payer MEDICARE, OTHER, SELFPAY ==
--- NOTE | ~2020-04-24 | XR_ITS ---
EXAMINATION: XR chest 2V DATE: 04/24/2020 11:15 INDICATION: Productive cough. TECHNIQUE: Frontal and lateral views of the chest were obtained. COMPARISON: Chest 2 views 03/11/2020, chest CT 01/19/2013 FINDINGS: The lung volumes are small. There is mild atelectasis in the lower lung zones. No pleural e ffusion or pneumothorax. The heart size is normal. IMPRESSION: 1. Small lung volumes with mild atelectasis in the lower lung zones. Reviewed, dictated and finalized at location A.
== END 2020-04-24 11:01 | disposition home or self-care (01) ==
PROVIDERS: PCP Family Medicine; Visit Provider Nurse Practitioner Adult Health
DX: J98.11 Atelectasis (principal); R05 Cough
CPT/HCPCS: 71046

== ENCOUNTER 2020-07-07 09:00 | Outpatient (RCR) | payer MEDICARE, OTHER, SELFPAY ==
[2020-04-25 08:56] VITALS: PULSE 59
--- NOTE | 2020-06-11 08:08 | PCCPR ---
Absent Jv called today states having some upper respiratory symptoms. States her MD wants her COVID tested. Requested he keep us informed so we can determine if he needs to quarantine for a period of time.
--- NOTE | 2020-06-16 09:34 | PCCPR ---
Sridevi called this am & states his is COVID positive. He has not gotten tested and isnt sure if he will, currently not having any symptoms. Has a call to primary MD to discuss further details. Atleast out for the next 14 days. He will continue to update us.
--- NOTE | 2020-06-19 08:40 | PCCPR ---
spoke to pt, he is COVID positive. On quarantine for 10 days from 06/18- thru 06/28, desmond will return 06/30. Explained changes to CR program.
--- NOTE | 2020-07-24 11:21 | PCCPR ---
Addendum entered by Faith Williamson RN 07/31/20 10:20: Jv stopped by today to give update. States his phone blew up literally. So he is unaware of any calls or messages. He hopes to get a different phone soon. He has been in ED for his rt knee pain. He now has a follow up apt with Dr Castañeda on 08/06/20 for evaluation. requested that he let us know his plan of care so we know to resume care or place on hold. Addendum entered by Faith Williamson RN 07/30/20 13:19: LM for Jv requesting he give us an update on his plan for return. Original Note: Pt recently fell and hurt knee on 07/16- called to LM about schedule change and return
== END 2020-07-07 23:59 | disposition home or self-care (01) ==
LOC: ANHCPREHAB 09:00
PROVIDERS: PCP Family Medicine; Visit Provider Internal Medicine Cardiovascular Disease
DX: Z95.5 Presence of coronary angioplasty implant and graft (principal)
CPT/HCPCS: 93798

== ENCOUNTER 2020-07-29 10:59 | Emergency (ER) | payer MEDICARE, OTHER, SELFPAY ==
--- NOTE | ~2020-07-29 | XR_ITS ---
EXAMINATION: XR chest 1V portable EXAM DATE: 07/29/2020 11:45 INDICATION: Shortness of air and cough. TECHNIQUE: Portable AP frontal chest x-ray was obtained. Comparison is made to prior examination from 04/24/2020. FINDINGS: Small amount of right basilar predominantly linear opacification, appearance is most consis tent with atelectasis. The lungs are otherwise clear. There are no pleural effusions. The cardiomediastinal silhouette is within normal limits. There is no pneumothorax suspected. The bones and soft tissues are unremarkab le. IMPRESSION: Small amount of right basilar predominantly linear opacity most consistent with atelectas is, unchanged. Follow-up can be obtained if symptoms persist. Reviewed, dictated and finalized at location A. [employer] IMPRESSION: Small amount of right basilar predominantly linear opacity most con sistent with atelectasis, unchanged. Follow-up can be obtained if symptoms pers ist.
[2020-07-29 11:15] VITALS: BP 182/95; PULSE 65; RESP 17; TEMP 36.7; O2SAT 91
--- NOTE | 2020-07-29 11:23 | ECG_ITS ---
Measurements Intervals [place] Rate: 65 P: 52 MA: 191 QRS: 16 QRSD: 88 T: 46 QT: 397 QTc: 413 Interpretive Statements SINUS RHYTHM VENTRICULAR PREMATURE COMPLEX BORDERLINE T WAVE ABNORMALITY- INFERIOR LEADS BASELINE ARTIFACT- II, III, AVL, AVF BORDERLINE ECG Electronically Signed On 07-29-2020 12:10:53 [employer] WORK[employer] by Yusuf Deluca D.O.
[2020-07-29 11:51] LABS: Basophils Absolute Auto 0.1 K/mm3 (0.0-0.1); Basophils Percent Auto 1.1 % (0.2-1.2); Eosinophils Absolute Auto 0.6 K/mm3 (0-0.3); Eosinophils Percent Auto 12.1 % (0-4.4); Hemoglobin 14.7 g/dL (14.0-18.0); Immature Granulocyte Absolute 0.02 K/mm3 (0.00-0.031); Immature Granulocyte Percent A 0.4 % (0-0.5); Lymphocytes Absolute Auto 1.06 K/mm3 (0.9-3.2); Lymphocytes Percent Auto 23.4 % (18.3-44.2); Mean Corpuscular HGB Conc 32.7 g/dl (32-36); Mean Corpuscular Hemoglobin 28.7 pg (26-34); Mean Corpuscular Volume 87.9 fl (80-100); Mean Platelet Volume 10.2 fl (7.4-10.4); Monocytes Absolute Auto 0.3 K/mm3 (0.1-0.6); Monocytes Percent Auto 6.4 % (2.6-8.5); Neutrophils Absolute Auto 2.6 K/mm3 (1.3-6.7); Neutrophils Percent Auto 56.6 % (45.5-73.1); Platelet Count Result 231 k/mm3 (150-375); Red Blood Count 5.12 M/mm3 (4.6-6.20); Red Cell Distribution Width 13.2 % (11.5-14.5); White Blood Count 4.5 K/mm3 (4.5-10.0)
[2020-07-29 12:02] LABS: Anion Gap 2 mmol/L (8-16); Blood Urea Nitrogen 13 mg/dL (9-20); Calcium 8.9 mg/dL (8.4-10.2); Carbon Dioxide 34 mmol/L (22-30); Chloride 102 mmol/L (98-107); Estimated CRCL calculation 96 ml/min; Estimated Glomerular Filt Rate > 60; Glucose 122 mg/dL (75-110); Potassium 4.4 mmol/L (3.4-5.0); Sodium 138 mmol/L (137-145)
[2020-07-29 12:11] LABS: NT Pro B Type Natriuretic Pept 213 PG/ML (5-100)
[2020-07-29 12:39] VITALS: PULSE 61; RESP 11
[2020-07-29] MEDS: IPRATROPIUM BR 0.02% INH SOLN 0.5 MG/2.5 ML VIAL INHALATION (12:39)
[2020-07-29] MEDS: ALBUTEROL SULFATE NEB 2.5 MG/0.5 ML INH 5 MG INHALATION (12:39)
[2020-07-29 12:44] VITALS: PULSE 59; RESP 8
--- NOTE | 2020-07-29 13:37 | ED.GENADULT ---
HPI - General Adult General Chief complaint: Chest Pain Stated complaint: sob Time Seen by Provider: 07/29/20 11:11 History of Present Illness HPI narrative: Patient is a 70-year-old male who presents ER with shortness of breath. Reports he had a cardiac stent placed several months ago. Since then he has had some exertional shortness of breath however his shortness of breath is significantly increased over the last few days. His use of his 's albuterol with mild improvement. He is having no fevers or chills or sweats. Shortness of breath is worse with laying down. No lower extremity edema. He does report coughing. Patient does report chest tightness related to this shortness of breath/coughing. Related Data Home Medications Medication Instructions Recorded Confirmed multivitamin 1 tablet PO DAILY 07/19/19 05/26/20 Combigan 1 drp OPHTHALMIC (EYE) BID 03/12/20 05/26/20 cetirizine [Zyrtec] 10 mg PO HS 03/12/20 05/26/20 pregabalin [Lyrica] 150 mg PO HS 03/12/20 05/26/20 Hydromorphone Pain Pump 3.897 mg IMPLANT DAILY 04/30/20 05/26/20 ascorbic acid (vitamin C) [Vitamin 500 mg PO DAILY 04/30/20 05/26/20 C] cholecalciferol (vitamin D3) 25 mcg PO DAILY 04/30/20 05/26/20 [Vitamin D3] magnesium 500 mg PO DAILY 04/30/20 05/26/20 vitamin B complex [B Complex] 1 cap PO DAILY 04/30/20 05/26/20 vitamin E 1 tablet PO DAILY 04/30/20 05/26/20 Allergies Allergy/AdvReac Type Severity Reaction Status Date / Time tramadol Allergy Mild SEIZURE Verified 05/26/20 10:56 Review of Systems Review of Systems: All systems reviewed & are unremarkable except as noted in HPI and below Constitutional: Constitutional: Denies chills, Denies fever(s) and Denies weakness ENT: Reports nasal congestion and Denies sore throat Comments: Positive postnasal drip. Cardiovascular: Cardiovascular: Reports chest pain, Denies rapid heart rate and Denies radiating jaw, neck or arm pain Respiratory: Respiratory: Reports cough, Reports dyspnea and Reports wheezing Gastrointestinal: Gastrointestinal: Denies abdominal pain, Denies nausea and Denies vomiting Neurologic: Denies focal weakness and Denies numbness PMFSH Past Medical History Medical History (Updated 07/29/20 @ 13:42 by Maldonado Gallego MD) Actinic keratoses Adhesion of intestine (~1969) Essential (primary) hypertension Myocardial infarction Wrist injury (~1968) Surgical History Surgical History History of esophagogastroduodenoscopy (EGD) Family History Family History Mother Diabetes mellitus Patient's mother is Family history of cardiovascular disease Father Patient's father is Social History Social History Smoking status: Never smoker Alcohol intake: never Substance use: never Substance use type: does not use Gender identity (if verbalized by the patient): Male Spiritual care concerns: No Exam Narrative: Exam Narrative: GENERAL: Well-appearing, well-nourished, and in no acute distress. HEAD: Normocephalic, atraumatic. ENT: Mucous membranes moist. CHEST: Air movement with wheezing and rhonchi throughout. No respiratory distress. HEART: Regular rate and rhythm. Normal peripheral pulses. ABDOMEN: Soft, nontender, nondistended, normal active bowel sounds. EXTREMITIES: Normal range of motion. No edema. SKIN: Warm, dry, no rash. NEURO: Alert and oriented x3. PSYCH: Normal mood and affect. Course Course Emergency Course: Patient reports resolution of symptoms after nebulizer treatment. Repeat evaluation of the lungs reveal excellent air movement and no wheezes/rhonchi. Patient be started on prednisone and albuterol for home. Informed of results and patient verbalized understanding. Vital Signs Vital signs: Vital Signs Temperature 98.1 F 07/29/20 11
[2020-07-29 14:07] VITALS: BP 139/84; PULSE 66; RESP 13; O2SAT 100
== END 2020-07-29 14:09 | disposition home or self-care (01) ==
PROVIDERS: Emergency Provider Emergency Medicine; PCP Family Medicine
DX: J40 Bronchitis, not specified as acute or chronic (principal); I25.2 Old myocardial infarction; I10 Essential (primary) hypertension; Z95.5 Presence of coronary angioplasty implant and graft; I49.3 Ventricular premature depolarization; R94.31 Abnormal electrocardiogram [ECG] [EKG]
CPT/HCPCS: 36415; 71045; 80048; 83880; 85025; 93005; 94640; 99283

== ENCOUNTER 2020-10-07 14:01 | Outpatient (CLI) | payer MEDICARE, OTHER, SELFPAY ==
--- NOTE | 2020-10-07 17:56 | WPDPFTINT ---
PFT Interpretation This is a pulmonary function test with pre-bronchodilator spirometry, plethysmography and diffusing capacity. The test was performed and results interpreted in accordance with the 2019 and 2005 ATS/ERS Task Force guidelines respectively using the Global Lung Function Initiative-2012 reference equations. Patient demonstrated good effort and cooperation. Reproducibility criteria were met. The quality of the pre bronchodilator spirometry maneuver was Grade A. Findings: Spirometry: The contour of the inspiratory and expiratory flow tracing are normal. The FVC is 2.64 L, 55% predicted. The FEV1 is 1.98 L, 56% predicted. The FEV1: FVC ratio is 75%. Plethysmography: The total lung capacity is 4.99 L, 64% predicted. Functional residual capacity is 2.47 L, 58% predicted. The residual volume is 2.14 L, 79% predicted. Diffusing capacity: The absolute diffusion capacity is 18.6, 68% predicted. The diffusing capacity corrected for alveolar volume is 4.28, 117% predicted. Impression: There is a moderately severe restrictive ventilatory abnormality. The spirometry is normal without evidence of an obstructive abnormality. The absolute diffusing capacity is mildly decreased and normalizes when corrected for alveolar volume. There are no prior studies for comparison
== END 2020-10-07 14:02 | disposition home or self-care (01) ==
PROVIDERS: PCP Family Medicine; Visit Provider Family Medicine
DX: R06.02 Shortness of breath (principal); R06.00 Dyspnea, unspecified
CPT/HCPCS: 94375; 94726; 94729

== ENCOUNTER 2021-03-18 09:24 | Inpatient (IN) | payer MEDICARE, OTHER, SELFPAY ==
[2021-03-18] VITALS (32 sets, daily range): BP systolic 152–192; BP diastolic 80–111; PULSE 56–78; RESP 9–24; TEMP 36.4–37.1; O2SAT 90–99; BMI 25.9
--- NOTE | ~2021-03-18 | XR_ITS ---
EXAMINATION: XR chest 2V EXAM DATE: 03/18/2021 10:03 INDICATION: Chest heaviness. Hypertension. TECHNIQUE: Frontal and lateral projections of the chest obtained and reviewed. Comparison is made to prior examination from 07/29/2020. FINDINGS: The lungs are clear. There are no pleural effusions. The cardiomediastinal silhouette is within normal limits. There is no pneumothorax suspected. The bones and soft tissues are unremarkab le. There are no prior studies for comparison. There is aortic arteriosclerosis. IMPRESSION: No acute cardiopulmonary findings. Reviewed, dictated and finalized at location A.
--- NOTE | ~2021-03-18 | CT_ITS ---
EXAMINATION: CTA chest PE protocol EXAM DATE: 03/18/2021 11:10 INDICATION: Shortness of breath, chest pain. TECHNIQUE: Spiral CTA of the chest (pulmonary arteries) was performed with 100 cc Omnipaque 350 intr avenous contrast injection. Images were acquired during the pulmonary arterial phase. Coronal maxi mum intensity projection 3D-reconstructions were created by the technologist on dedicated workstation . Axial, coronal and sagittal reformatted images were reviewed. The dose-length product (DLP) for t his examination was 568.64 mGy-cm. The exposure was tailored according to patient size (auto mA exp osure control), and iterative reconstruction (ASIR) was used as additional dose reduction technique. Comparison is made to prior examination from 01/19/2013. FINDINGS: Pulmonary arteries are well opacified and without intraluminal filling defects. No thora cic aortic dissection. Small amount of right lower lobe atelectasis. There are no pleural or perica rdial effusions. Tracheobronchial tree is patent. There is no mediastinal, hilar or axillary lymp hadenopathy. There is no pneumothorax. Heart normal in size. There is moderate coronary arteria l calcification, arterial sclerosis. There is hepatic steatosis. There is thoracic spondylosis with out osteoblastic or osteolytic lesions identified. IMPRESSION: 1. Small amount right lower lobe atelectasis. 2. No pulmonary emboli. Reviewed, dictated and finalized at location A.
--- NOTE | ~2021-03-18 | NM_ITS ---
EXAMINATION: NM mary stress w perfusion DATE: 03/19/2021 11:43 INDICATION: Chest pain. TECHNIQUE: Rest images were obtained following intravenous administration of 9.4 mCi Tc99m tetrofosmi n (Myoview). The patient was infused intravenously with Lexiscan (regadenoson). Then, 30.2 mCi Tc99m tetrofosmin (Myoview) was administered intravenously, and supine stress images were obtained. Prior i mages could not be obtained. Data was reconstructed into short axis and horizontal and vertical long axis SPECT images. Gated SPECT images were also obtained. COMPARISON: Myocardial perfusion imaging 03/12/2020 FINDINGS: There is a moderate-sized are of mild mixed fixed and reversible perfusion defect involving mid to basal inferior and inferolateral segments of left ventricle, consistent with infarct and isch emia. There is no segmental wall motion abnormality. Left ventricular ejection fraction measures 59 %. IMPRESSION: 1. Moderate-sized area of mild mixed infarct and ischemia involving mid to basal inferior and inferol ateral segments of left ventricle. 2. Normal left ventricular ejection fraction measuring 59%. Reviewed, dictated and finalized at location A. IMPRESSION: 1. Moderate-sized area of mild mixed infarct and ischemia involving mid to basa l inferior and inferolateral segments of left ventricle. 2. Normal left ventricular ejection fraction measuring 59%.
--- NOTE | 2021-03-18 09:39 | ECG_ITS ---
Measurements Intervals [place] Rate: 64 P: 37 MT: 170 QRS: -5 QRSD: 97 T: 1 QT: 401 QTc: 414 Interpretive Statements SINUS RHYTHM EARLY PRECORDIAL R/S TRANSITION BORDERLINE T WAVE ABNORMALITY- INFERIOR LEADS BASELINE ARTIFACT- II, III, AVR, AVF, V1, V3-V6 BORDERLINE ECG Electronically Signed On 03-18-2021 9:43:49 CDT by Yusuf Deluca D.O.
--- NOTE | 2021-03-18 09:56 | ED.CHESTPAIN ---
HPI - Chest Pain General Chief Complaint: Chest Pain Stated Complaint: CP Time Seen by Provider: 03/18/21 09:27 History of Present Illness HPI narrative: Patient is a 71-year-old male with history of CAD and COPD who presents ER with chest pain. Ongoing for 24 hours. Pressure in the center of his chest. Cannot get a full deep breath. No fevers or chills or sweats. No productive cough. Cannot describe aggravating or alleviating factors. Has tried albuterol without relief. Patient had a stent last year after having negative cardiac enzymes and negative EKG. Says patient concerned at this time.. Related Data Home Medications Medication Instructions Recorded Confirmed multivitamin 1 tablet PO DAILY 07/19/19 03/18/21 Combigan 1 drp OPHTHALMIC (EYE) BID 03/12/20 03/18/21 cetirizine [Zyrtec] 10 mg PO HS 03/12/20 03/18/21 pregabalin [Lyrica] 150 mg PO HS 03/12/20 03/18/21 Hydromorphone Pain Pump 3.897 mg IMPLANT DAILY 04/30/20 03/18/21 ascorbic acid (vitamin C) [Vitamin 500 mg PO DAILY 04/30/20 03/18/21 C] cholecalciferol (vitamin D3) 25 mcg PO DAILY 04/30/20 03/18/21 [Vitamin D3] magnesium 500 mg PO DAILY 04/30/20 03/18/21 vitamin B complex [B Complex] 1 cap PO DAILY 04/30/20 03/18/21 vitamin E 1 tablet PO DAILY 04/30/20 03/18/21 Allergies Allergy/AdvReac Type Severity Reaction Status Date / Time tramadol Allergy Mild SEIZURE Verified 03/18/21 15:20 Review of Systems Review of Systems: All systems reviewed & are unremarkable except as noted in HPI and below Constitutional: Constitutional: Denies chills, Denies fever(s) and Denies weakness ENT: Denies nasal congestion and Denies sore throat Cardiovascular: Cardiovascular: Reports chest pain, Denies rapid heart rate and Denies radiating jaw, neck or arm pain Respiratory: Respiratory: Denies cough, Reports dyspnea and Denies wheezing Comments: Pain with deep breath Gastrointestinal: Gastrointestinal: Denies abdominal pain, Denies nausea and Denies vomiting Psychiatric: Psychiatric: Reports anxiety PMFSH Past Medical History Medical History Actinic keratoses Adhesion of intestine (~1969) Essential (primary) hypertension (Unknown) Myocardial infarction Overweight (BMI 25.0-29.9) Wrist injury (~1968) Surgical History Surgical History History of esophagogastroduodenoscopy (EGD) Family History Family History Mother Diabetes mellitus Patient's mother is Family history of cardiovascular disease Father Patient's father is Social History Social History Smoking status: Never smoker Alcohol intake: current Drinks per week: 6 Substance use: never Substance use type: does not use Gender identity (if verbalized by the patient): Male Spiritual care concerns: No Exam Narrative: GENERAL: Ill-appearing, well-nourished, and in no acute distress. HEAD: Normocephalic, atraumatic. EYES: PERRL and EOMI. ENT: Mucous membranes moist. CHEST: Poor air movement with wheezing versus upper respiratory referred sound. Mild respiratory distress. HEART: Regular rate and rhythm. Normal peripheral pulses. ABDOMEN: Soft, nontender, nondistended. EXTREMITIES: Normal range of motion. No edema. SKIN: Warm, dry, no rash. NEURO: Alert and oriented x3. PSYCH: Flat affect with anxious mood. Course Reevaluation(s) Reevaluation #1: Patient became very anxious and had burning to his arms and legs after receiving nitroglycerin. Improved after receiving Ativan. Lung sounds improving with nebulizer treatment. Given the fact the patient has chest pain with shortness of breath with low O2 sat and pain with deep breath is felt to be high risk for pulmonary embolism and we'll obtain a CTA of the chest. Date: 03/18/21
[2021-03-18 10:03] LABS: Basophils Percent Auto 0.5 % (0.2-1.2); Eosinophils Absolute Auto 0.4 K/mm3 (0-0.3); Eosinophils Percent Auto 6.3 % (0-4.4); Hematocrit 45.2 % (42.0-52.0); Hemoglobin 14.8 g/dL (14.0-18.0); Immature Granulocyte Absolute 0.01 K/mm3 (0.00-0.031); Immature Granulocyte Percent A 0.2 % (0-0.5); Lymphocytes Absolute Auto 1.44 K/mm3 (0.9-3.2); Mean Corpuscular HGB Conc 32.7 g/dl (32-36); Mean Corpuscular Hemoglobin 28.6 pg (26-34); Mean Corpuscular Volume 87.4 fl (80-100); Monocytes Absolute Auto 0.4 K/mm3 (0.1-0.6); Monocytes Percent Auto 6.2 % (2.6-8.5); Neutrophils Absolute Auto 3.8 K/mm3 (1.3-6.7); Neutrophils Percent Auto 62.8 % (45.5-73.1); Platelet Count Result 189 k/mm3 (150-375); Red Blood Count 5.17 M/mm3 (4.6-6.20); Red Cell Distribution Width 13.5 % (11.5-14.5)
[2021-03-18] MEDS: IPRATROPIUM BR 0.02% INH SOLN 0.5 MG/2.5 ML VIAL INHALATION (10:07)
[2021-03-18] MEDS: ALBUTEROL SULFATE NEB 2.5 MG/0.5 ML INH 5 MG INHALATION ×2 (10:07→12:53)
[2021-03-18 10:16] LABS: INR 0.9; Prothrombin Time 12.4 Seconds (11.1-14.7)
[2021-03-18 10:17] LABS: Alanine Aminotransferase 26 U/L (4-50); Albumin Level 4.2 g/dL (3.5-5.1); Alkaline Phosphatase 93 U/L (38-126); Anion Gap 6 mmol/L (8-16); Aspartate Amino Transferase 35 U/L (17-59); Bilirubin,Total 0.5 mg/dL (0.2-1.3); Blood Urea Nitrogen 13 mg/dL (9-20); Calcium 9.8 mg/dL (8.4-10.2); Carbon Dioxide 28 mmol/L (22-30); Chloride 105 mmol/L (98-107); Estimated CRCL calculation 94 ml/min; Estimated Glomerular Filt Rate > 60; Glucose 144 mg/dL (65-110); Partial Thromboplastin Time 26.5 SECONDS (22.3-36.8); Potassium 3.8 mmol/L (3.4-5.0); Sodium 139 mmol/L (137-145)
[2021-03-18] MEDS: ASPIRIN 81 MG CHEWABLE TABLET 324 MG PO (10:19)
[2021-03-18] MEDS: NITROGLYCERIN SL 0.4 MG TABLET SUBLINGUAL (10:19)
[2021-03-18 10:29] LABS: Troponin I < 0.012 ng/mL (0.000-0.034)
--- NOTE | 2021-03-18 10:33 | PC.NURSE ---
BNP added onto labs at 10:31
--- NOTE | 2021-03-18 10:33 | PC.NURSE ---
pt given 1 sublingual nitro. Pt became extremely restless, diaphoretic and states that he feels like his is going to explode Dr. Gallego at bedside. VORB for 1 mg Ativan IV
--- NOTE | 2021-03-18 10:36 | ECG_ITS ---
Measurements Intervals [place] Rate: 57 P: 35 MT: 178 QRS: -18 QRSD: 98 T: 15 QT: 403 QTc: 394 Interpretive Statements SINUS BRADYCARDIA EARLY PRECORDIAL R/S TRANSITION BASELINE ARTIFACT- I, II, III, AVR, AVL, AVF, V1, V3-V6 BORDERLINE ECG Electronically Signed On 03-19-2021 11:05:39 CDT by Yusuf Deluca D.O.
[2021-03-18] MEDS: LORazepam INJ (*CRX) 2 MG/ML VIAL (10:39)
--- NOTE | 2021-03-18 11:08 | PC.NURSE ---
called down at 10:31 to add on a BNP and called again at 11:08 to add on
[2021-03-18 11:39] LABS: NT Pro B Type Natriuretic Pept 524 pg/mL (5-100)
[2021-03-18 13:58] LABS: Troponin I < 0.012 ng/mL (0.000-0.034)
--- NOTE | 2021-03-18 14:38 | PM.IMHP ---
H&P: HPI History of Present Illness Date/Time: 03/18/21 14:38 Chief Complaint: Chest Pain Narrative: This 71 year old male patient with a significant PMH of ACS with CO and subsequent stent placement in 2019, COPD, and HTN presented to the ER this morning with complaints of having chest pain. He is accompanied by his . The pt. endorses having N/Vx2 yesterday, and feeling weak with an intermittent heaviness in his chest, fingers on bilateral hands tingling, and just not feeling right. He described the discomfort as pressure, there was no radiation of the discomfort, no palpitations and he is no longer nauseated. He denies any new dyspnea, but instead states he is always dyspneic ever since he had his stent placed last year. Nothing has made his symptoms worse, but the Nitro he received here did make it better, although it made him diaphoretic and he had tingling at the site of where the nitro was applied. He denies any sick contacts, any cough, and no recent COVID+ Contacts. He did receive the COVID vaccine. He is a non-smoker. The patient and his do state that this weekend bran one year of when he had his stents placed. When he was symptomatic last year, apparently all of his testing was negative, and that weighs on his mind today. In the ER he was given Ativan with relief of some anxiety. CXR, CTA of Chest were both negative for any acute findings including PE, Troponin's x2 have been negative thus far, and EKG shows NSR at 64 bpm without any ectopy or ischemia. Review of the patient's chart shows that sees Dr. Baker, Dispensary Clerk from [facility], and followed up with him on 02/27/21. The only change at that time was an increase in his Lisinopril and the patient was advised to follow up in 6 months. As the patient has continually complained of Dyspnea since his stent placement, he has been seeing Dr. Espinosa for Pulmonology and had a PFT performed 10/07/20 that showed a Restrictive Lung Disease that he followed up with 12/25/20 and the only recommendation was to follow up with CT without contrast of chest in 6 months to evaluate any progression of pulmonary nodules and to continue Albuterol treatment as needed. His note states that the restriction is suspected to be due to body habitus/extra thoracic tissue at that time. Review of Systems Review of Systems: All systems reviewed & are unremarkable except as noted in HPI and below Constitutional: Constitutional: Reports as per HPI and Reports weakness Comments: Pt. states he just does not feel right. Cardiovascular: Cardiovascular: Reports as per HPI, Reports chest pain, Denies diaphoresis, Denies pedal edema, Denies leg edema, Denies lightheadedness and Denies palpitations Comments: Chest heaviness without any radiation. Respiratory: Respiratory: Reports as per HPI, Denies cough, Reports dyspnea (Pt. reports that he feels constantly dyspneic since receiving stent.) and Denies wheezing Gastrointestinal: Gastrointestinal: Reports nausea (yesterday, now resolved) and Reports vomiting (x2, yesterday) Neurologic: Denies vertigo and Denies numbness Comments: Pt. reports tingling to all of the fingers of bilateral hands. [facility] Past Medical History Medical History Actinic keratoses Adhesion of intestine (~1969) Essential (primary) hypertension Myocardial infarction Overweight (BMI 25.0-29.9) Wrist injury (~1968) Surgical History Surgical History History of esophagogastroduodenoscopy (EGD) Family History Family History Mother Diabetes mellitus Patient's mother is Family history of cardiovascular disease Father Patient's father is Social History Social History Smoking status: Never smoker Alcohol intake: current Drinks per we
--- NOTE | 2021-03-18 14:54 | PC.NURSE ---
This patient, Joe Wellington, was admitted to [facility]. Patient/family oriented to hospital policies and general routines including ID bracelet, bed and alarms, visiting hours, pain management, procedures, bathroom and other care routines, personal items, smoking policy, room service/diet, and visiting hours. Information on how to activate the Rapid Response Team has been discussed. Patient/Family are encouraged to report perceived risks to care and to ask questions if they do not understand what they are told or what they should do.
--- NOTE | 2021-03-18 16:40 | PM.CNCAR ---
Assessment and Plan Assessment and plan (1) Chest pain: Onset Date: 03/2021 <REBECCA Flores - Last Filed: 03/18/21 18:02> Qualifiers: Chest pain type: chest pain due to myocardial ischemia Ischemic chest pain type: other angina pectoris type Qualified Code(s): I20.8 - Other forms of angina pectoris <REBECCA Flores - Last Filed: 03/18/21 18:02> Code(s): R07.9 - Chest pain, unspecified <REBECCA Flores - Last Filed: 03/18/21 18:02> Status: Acute <REBECCA Flores - Last Filed: 03/18/21 18:02> Assessment and Plan: Patient is currently denying any chest pain. He does describe a feeling of heaviness in his chest that is inhibiting him from taking a full breath. He describes being active at home and denies experiencing any anginal symptoms with activity. Troponins negative x2, 3rd troponin level pending. EKG does not have any evidence of ischemia. Heavy feeling in his chest likely related to his lung disease. However, given his history of coronary disease will recommend Lexiscan stress test tomorrow. <REBECCA Flores - Last Filed: 03/18/21 18:02> (2) Restrictive lung disease: Code(s): J98.4 - Other disorders of lung <REBECCA Flores - Last Filed: 03/18/21 18:02> Status: Acute <REBECCA Flores - Last Filed: 03/18/21 18:02> Assessment and Plan: Has a history of restrictive lung disease demonstrated by PFTs performed here in September of 2020. Normal flow volume loop, FVC 2.64/55%, FEV1 1.98/56%, ratio 75, reduction in lung volumes, TLC 64%, DLCO 60% predicted correlated DLCO/VA normal On albuterol HFA 2 puffs Q 6 p.r.n. Will order albuterol nebulizer for now <REBECCA Flores - Last Filed: 03/18/21 18:02> (3) CAD (coronary artery disease): Onset Date: ~03/2020 <REBECCA Flores - Last Filed: 03/18/21 18:02> Qualifiers: Associated angina: with other forms of angina Coronary Disease-Associated Artery/Lesion type: [place] artery [place] vs. transplanted heart: [place] heart Qualified Code(s): I25.118 - Atherosclerotic heart disease of [place] coronary artery with other forms of angina pectoris <REBECCA Flores - Last Filed: 03/18/21 18:02> Code(s): I25.10 - Atherosclerotic heart disease of [place] coronary artery without angina pectoris <REBECCA Flores - Last Filed: 03/18/21 18:02> Status: Resolved <REBECCA Flores - Last Filed: 03/18/21 18:02> Assessment and Plan: 70% stenosis of a diagonal branch that was treated with a drug-eluting stent in March of 2020. Apparently also has a remote history of [place] in 1978 in 1982. His coronary disease has been stable since intervention 1 year ago-she has not reported any anginal symptoms. On aspirin, Brilinta, atorvastatin <REBECCA Flores - Last Filed: 03/18/21 18:02> (4) Essential (primary) hypertension: Onset Date: Unknown <REBECCA Flores - Last Filed: 03/18/21 18:02> Code(s): I10 - Essential (primary) hypertension <REBECCA Flores - Last Filed: 03/18/21 18:02> Status: Chronic <REBECCA Flores - Last Filed: 03/18/21 18:02> Assessment and Plan: Blood pressure is above goal. Will start amlodipine 5 mg daily. <REBECCA Flores - Last Filed: 03/18/21 18:02> Additional Plan Patient seen and examined, chart reviewed. Agree with SHYAM Bradshaw's assessment and plan. The patient had a sensation of dyspnea last March with some heaviness and nausea. Stress test showed some reversible ischemia and the patient was found to have a diagonal stenosis which was stented. His breathing felt somewhat better after that but he continued to have some MOSLEY and inability to take deep breaths. This has been progressive of the last 2 months, and he has been in bed most of the last 2 days because of veronica
--- NOTE | 2021-03-18 17:17 | PC.NURSE ---
Called main lab and left a message to the roll cleaner checking to see when they would be over to draw the pt's last troponin level.
[2021-03-18 18:17] LABS: Troponin I < 0.012 ng/mL (0.000-0.034)
[2021-03-18] MEDS: LORazepam INJ (*CRX) 2 MG/ML VIAL 1 MG IV PUSH ×2 (19:50→23:55)
[2021-03-18] MEDS: QUEtiapine FUMARATE 25 MG TABLET PO (22:25)
[2021-03-19] VITALS (19 sets, daily range): BP systolic 117–172; BP diastolic 69–90; PULSE 53–73; RESP 14–16; TEMP 35.8–36.6; O2SAT 93–96
--- NOTE | 2021-03-19 | EST_ITS ---
Patient Info Name: Joe Wellington Age: 71 years : 1950 Gender: Male Ht: 74 in Wt: 201 lbs BSA: 2.19 m2 HR: 60 bpm BP: 140 / 97 mmHg Heart Rhythm: Sinus Rhythm Exam Date: 03/19/2021 10:52 AM Exam Location: [facility] Stress Patient Status: Inpatient Admit Date: 03/18/2021 Staff Ordering Physician: Fely Bradshaw Attending Provider: Rafia Kaufman MD Exercise Technologist: Geovanna Amezquita CT Exercise Physician: Marilyn Doss MD Exam Type: CA stress mary w NM Study Info A regadenoson stress test was performed. Summary 1. Negative Lexiscan stress EKG test for ischemia. 2. Follow-up on nuclear images. Protocol: Lexiscan Stress ECG Details Stage: REST Duration (min): 1 min : 43 sec HR (bpm): 59 SBP (mmHg): 140 DBP (mmHg): 97 Stage: REST Duration (min): 5 min : 29 sec HR (bpm): 60 SBP (mmHg): 140 DBP (mmHg): 97 Stage: STAGE 1 Duration (min): 0 min : 59 sec HR (bpm): 72 SBP (mmHg): 135 DBP (mmHg): 91 Stage: RECOVERY Duration (min): 1 min : 0 sec HR (bpm): 86 SBP (mmHg): 135 DBP (mmHg): 91 Stage: RECOVERY Duration (min): 2 min : 0 sec HR (bpm): 82 SBP (mmHg): 135 DBP (mmHg): 91 Stage: RECOVERY Duration (min): 3 min : 0 sec HR (bpm): 85 SBP (mmHg): 118 DBP (mmHg): 77 Stage: RECOVERY Duration (min): 3 min : 23 sec HR (bpm): 84 SBP (mmHg): 118 DBP (mmHg): 77 Rest HR: 60 bpm Peak HR: 88 bpm Rest Sys BP: 140 mmHg Peak Sys BP: 135 mmHg Max Pred HR: 147 bpm % Max Pred HR: 60 % Target HR: 125 bpm Max RPP: 11,880 bpm*mmHg Total Time: 1 min : 0 sec Rest Peterson BP: 97 mmHg Peak Peterson BP: 91 mmHg Total Dose: 0.4 mg Resting ECG Normal sinus rhythm. Stress ECG Negative for ischemia. Arrhythmias None. Report Signatures
[2021-03-19] MEDS: chlordiazePOXIDE (*CRX) 25 MG CAPSULE 50 MG PO ×4 (00:07→23:04)
--- NOTE | 2021-03-19 00:42 | PM.EVENT ---
Event Note Event Note Event Note: called for shaky and restlessness episodes overnight. Hypertensive during those episodes. Previously received Ativan with improvement Admitted with chest pain and ischemic workup planned with stress test in morning Had been drinking beer every day for several years patient and his at bedside denies having any withdrawal symptoms in the past. Suspect alcohol withdrawal. Will start CIWA protocol. Place on Librium 50 mg q.6 hours schedule Discussed with
[2021-03-19] MEDS: TIMOLOL MALEATE 0.5% OP SOLN 5 ML BOTTLE 1 DROP EACH EYE ×3 (00:43→21:09)
[2021-03-19] MEDS: BRIMONIDINE TARTRATE 0.2% OP SOLN 5 ML BTL 1 DROP EACH EYE ×3 (00:44→21:09)
[2021-03-19] MEDS: PREGABALIN (*CRX) 75 MG CAPSULE 150 MG PO ×2 (00:45→21:07)
[2021-03-19] MEDS: lisinopriL 10 MG TABLET PO ×2 (00:45→21:07)
--- NOTE | 2021-03-19 02:48 | PCRCNOTE ---
Nurse reported that pt was sleeping and had rough night. States that pt didn't sound like he needed the nebulizer treatment at this time and that she will call if that changes. Otherwise, he can start the treatment with the scheduled 08:00 treatment.
[2021-03-19 04:32] LABS: Amphetamine Screen Urine Negative (Negative); Barbiturate Screen Urine Negative (Negative); Benzodiazepines Screen Urine Negative (Negative); Cannabinoid Screen Urine Negative (Negative); Cocaine Screen Urine Negative (Negative); Methadone Screen Urine Negative (Negative); Opiate Screen Urine Positive (Negative); Phencyclidine Screen Urine Negative (Negative)
--- NOTE | 2021-03-19 04:49 | PC.NURSE ---
RN got report from MARÍA Cobian at shift change. This RN was told patient is very anxious and impulsive. Patient was constantly information systems security officer light, stating he needed to get up and needed some medicine now to help him relax. RN looked to see if patient had anything PRN ordered for anxiety and she didn't see anything on the SEP. MARÍA Linton called night hospitalist after speaking to warehouse order selector about situation. RN got a one time order for 1mg Ativan. Patient was much more calm after receiving Ativan. Upon first initial assessment, patient was diaphoretic, BP was elevated, patient was tremoring, patient said he couldn't catch his breath,etc. Patient calmed down some after first dose of Ativan given about 1950. Patient was anxious and impulsive about an hour later. BP was creeping back up again also. RN called hospitalist again after spouse called nurses station and showed up at the hospital. (grinding and spraying supervisor aware.) When RN spoke with spouse and she stated, Patient has trouble sleeping at home sometimes and takes over the counter sleeping meds. She thought it was called Sleep 3 . Hospitalist aware and he ordered 25mg Seroquel nightly to start tonight since QTC was appropriate. RN called MARÍA Louis about 2221 to make her aware of the current situation. She called warehouse order selector and said it was okay for to come to hospital and sit with patient overnight to promote safety. RN gave Seroquel about 2225. grinding and spraying supervisor came to unit shortly after dose of Seroquel and stayed with patient until spouse arrived at bedside. When Seroquel kicked in, patient settled down again for a short time and rested some. Patient then became diaphoretic, anxious, was hallucinating, got nauseated, etc. RN asked spouse if patient drinks regularly because he was showing signs of withdrawal. Spouse stated, He drinks 4 drinks daily with friends on average. RN wasn't sure if it was beer or hard alcohol at this time. According to spouse, patient's last drink was Tuesday evening. RN stepped out of patient's room and called hospitalist and told him about new information. CIWA protocol was ordered. Patient was given a second dose of 1mg Ativan at 2355. Then 50mg Librium was given at 0007. When MARÍA Linton gave patient the Librium and was talking to patient and spouse, she stated, I remember a time in the past when he got that drug and it helped. Patient's CIWA went from 29 to 13 to 8 overnight. Patient is sleeping comfortably now and next dose of Librium is at 0600. RN will continue to monitor patient's response to medications. Spouse is still at the bedside with permission from management.
[2021-03-19 06:56] LABS: Basophils Percent Auto 0.5 % (0.2-1.2); Eosinophils Absolute Auto 0.3 K/mm3 (0-0.3); Eosinophils Percent Auto 5.2 % (0-4.4); Hemoglobin 14.6 g/dL (14.0-18.0); Immature Granulocyte Absolute 0.02 K/mm3 (0.00-0.031); Immature Granulocyte Percent A 0.3 % (0-0.5); Lymphocytes Absolute Auto 1.45 K/mm3 (0.9-3.2); Lymphocytes Percent Auto 24.3 % (18.3-44.2); Mean Corpuscular HGB Conc 32.4 g/dl (32-36); Mean Corpuscular Hemoglobin 28.6 pg (26-34); Mean Corpuscular Volume 88.2 fl (80-100); Mean Platelet Volume 9.9 fl (7.4-10.4); Monocytes Absolute Auto 0.4 K/mm3 (0.1-0.6); Monocytes Percent Auto 7.4 % (2.6-8.5); Neutrophils Absolute Auto 3.7 K/mm3 (1.3-6.7); Neutrophils Percent Auto 62.3 % (45.5-73.1); Platelet Count Result 189 k/mm3 (150-375); Red Cell Distribution Width 13.5 % (11.5-14.5)
[2021-03-19 07:26] LABS: Alanine Aminotransferase 26 U/L (4-50); Albumin Level 3.9 g/dL (3.5-5.1); Alkaline Phosphatase 83 U/L (38-126); Anion Gap 7 mmol/L (8-16); Aspartate Amino Transferase 31 U/L (17-59); Bilirubin,Total 0.6 mg/dL (0.2-1.3); Blood Urea Nitrogen 12 mg/dL (9-20); Calcium 9.4 mg/dL (8.4-10.2); Carbon Dioxide 26 mmol/L (22-30); Chloride 104 mmol/L (98-107); Estimated CRCL calculation 94 ml/min; Estimated Glomerular Filt Rate > 60; Glucose 105 mg/dL (65-110); Potassium 3.7 mmol/L (3.4-5.0); Sodium 137 mmol/L (137-145)
[2021-03-19] MEDS: ASPIRIN 81 MG CHEWABLE TABLET PO (09:55)
[2021-03-19] MEDS: amLODIPine BESYLATE 5 MG TABLET PO (09:55)
[2021-03-19] MEDS: PANTOPRAZOLE SODIUM IV 40 MG VIAL IV PUSH (09:56)
[2021-03-19] MEDS: ATORVASTATIN 40 MG TABLET PO (09:56)
[2021-03-19] MEDS: VITAMIN B COMPLEX CAPSULE 1 CAP PO (09:57)
--- NOTE | 2021-03-19 10:10 | PC.NURSE ---
DOWN VIA WC FOR LEXISCAN NUCLEAR STRESS TEST.
--- NOTE | 2021-03-19 11:01 | PCRCNOTE ---
Window of time for administration has passed. See next scheduled administration.
--- NOTE | 2021-03-19 11:49 | PC.NURSE ---
returns from lexiscan nuclear stress test via wc to coal feeder operator 4 at this time.
[2021-03-19] MEDS: IPRATROPIUM BR 0.02% INH SOLN 0.5 MG/2.5 ML VIAL INHALATION ×2 (12:10→20:48)
--- NOTE | 2021-03-19 12:43 | PM.PNCARD ---
Progress Note: A&P Assessment and Plan (1) Chest pain: Onset Date: 03/2021 Qualifiers: Chest pain type: chest pain due to myocardial ischemia Ischemic chest pain type: other angina pectoris type Qualified Code(s): I20.8 - Other forms of angina pectoris Code(s): R07.9 - Chest pain, unspecified Status: Acute Assessment and Plan: Atypical chest discomfort, but abnormal stress test an abnormal echo, recommend cardiac catheterization tomorrow for further evaluation. (2) CAD (coronary artery disease): Onset Date: ~03/2020 Qualifiers: Coronary Disease-Associated Artery/Lesion type: [place] artery [place] vs. transplanted heart: [place] heart Associated angina: with other forms of angina Qualified Code(s): I25.118 - Atherosclerotic heart disease of [place] coronary artery with other forms of angina pectoris Code(s): I25.10 - Atherosclerotic heart disease of [place] coronary artery without angina pectoris Status: Resolved Assessment and Plan: History of diagonal stent in March 2020. (3) Dyspnea: Onset Date: Unknown Qualifiers: Dyspnea type: unspecified Qualified Code(s): R06.00 - Dyspnea, unspecified Code(s): R06.00 - Dyspnea, unspecified Status: Chronic Assessment and Plan: A component of the patient's MOSLEY and symptoms of chest heaviness is likely due to asthma and perhaps anxiety. Wheezing has resolved with albuterol nebulizers. Recommended the patient use an inhaler regularly at home. (4) Anxiety: Code(s): F41.9 - Anxiety disorder, unspecified Status: Acute Assessment and Plan: feels the patient's agitation, anxiety and tremulousness was a reaction to the nitroglycerin and disagrees with our assessment of alcohol withdrawal. I have never seen this as a reaction to nitroglycerin although it is of course a possible it is idiosyncratic reaction. However asked her to keep an open mind for other causes. Subjective Date/time seen: 03/19/21 12:43 Interval history: Follow-up for CAD, shortness of breath Date of service 03/19/2021: Patient became very agitated last night and appear to have alcohol withdrawal, treated with Librium.. The patient's does not think this is alcohol withdrawal but a reaction to the nitroglycerin he received. He is very sleepy this morning. His chest heaviness has resolved. Lexiscan stress test showed a moderate-sized mixed area of infarct and ischemia of the mid to basal inferior wall and inferolateral segments. In addition is echo showed some hypokinesis of the inferior and lateral casiano, so perhaps he has some disease of the circumflex or right coronary artery. (Lexiscan 03/2021: . Small basilar inferolateral infarct with surrounding ischemia which extends more anteriorly in the basilar inferolateral segment as well as into the adjacent mid inferolateral and basilar inferior segments. Had a diagonal lesion stented at that time, not sure that the lesion matches the defect. ) Echo 03/18/2021: 1. Complete two-dimensional, color flow and Doppler transthoracic echocardiogram is performed. 2. Left ventricular chamber dimension is normal. 3. Left ventricular systolic function is normal, estimated at 60-65%. 4. There is mildly increased left ventricular wall thickness. 5. The left ventricular diastolic function is grade I diastolic dysfunction. 6. The basal inferolateral wall, and mid inferolateral wall are hypokinetic. 7. There is mild mitral valve regurgitation. 8. There is mild tricuspid valve regurgitation. Review of Systems Constitutional: Constitutional: Reports difficulty sleeping (Agitated last night) and Reports fatigue (Secondary to Ativan) ENT: Denies epistaxis Cardiovascular: Cardiovascular: Denies pedal edema and Denies leg edema R
--- NOTE | 2021-03-19 12:45 | PC.NURSE ---
DR. AGARWAL TO BEDSIDE TO SEE PT AND .
--- NOTE | 2021-03-19 15:51 | PM.IMPN ---
Progress Note: A&P Assessment and Plan (1) Chest pain: Onset Date: 03/2021 Qualifiers: Chest pain type: chest pain due to myocardial ischemia Ischemic chest pain type: other angina pectoris type Qualified Code(s): I20.8 - Other forms of angina pectoris Code(s): R07.9 - Chest pain, unspecified Status: Acute Assessment and Plan: HEART SCORE: 5 Troponin Negative x2 Cardiology following, appreciate their recommendations. Continue ASA, s/p full dose given in ER. ST this morning abnormal-->Small basilar inferolateral infarct with surrounding ischemia which extends more anteriorly in the basilar inferolateral segment as well as into the adjacent mid inferolateral and basilar inferior segments. Had a diagonal lesion stented at that time, not sure that the lesion matches the defect. Plan for cardiac cath tomorrow (2) Dyspnea: Onset Date: Unknown Qualifiers: Dyspnea type: unspecified Qualified Code(s): R06.00 - Dyspnea, unspecified Code(s): R06.00 - Dyspnea, unspecified Status: Chronic Assessment and Plan: Continue Budesonide Q12 hrs Duoneb Q6 hrs Albuterol neb Q4 hrs prn Wheezing CXR and CTA both negative for any acute findings (3) Essential (primary) hypertension: Onset Date: Unknown Code(s): I10 - Essential (primary) hypertension Status: Chronic Assessment and Plan: Continue home meds Monitor (4) CAD (coronary artery disease): Onset Date: ~03/2020 Qualifiers: Coronary Disease-Associated Artery/Lesion type: [place] artery [place] vs. transplanted heart: [place] heart Associated angina: with other forms of angina Qualified Code(s): I25.118 - Atherosclerotic heart disease of [place] coronary artery with other forms of angina pectoris Code(s): I25.10 - Atherosclerotic heart disease of [place] coronary artery without angina pectoris Status: Resolved Assessment and Plan: History of ACS with stent placement last year Cardiology following recommendations apprecaited Resume home meds - Monitor. - Appreciate Cardiology recs. (5) Chronic back pain greater than 3 months duration: Onset Date: Unknown Code(s): M54.9 - Dorsalgia, unspecified; G89.29 - Other chronic pain Status: Chronic Assessment and Plan: Implanted Dilaudid Pain Pump Continue Lyrica 150 mg po HS Hydrocodone 5/325 Q4 hrs prn ordered (6) EtOH dependence: Code(s): F10.20 - Alcohol dependence, uncomplicated Status: Acute Assessment and Plan: Suspect withdrawal Continue Librium 50 mg q.6 hours scheduled CIWA in place Monitor Additional Plan CODE STATUS: FULL CODE Subjective Date/time seen: 03/19/21 15:51 Interval history: Pt seen and evaluated; labs, VS, diagnostic reports reviewed; nursing staff reported that pt was shaky and restlessness episodes overnight with hypertension during those episode. He previously received Ativan with improvement; is at the bedside; states he drinks 4 beers a day sometimes; denied any CP or SOB Review of Systems Review of Systems: All systems reviewed & are unremarkable except as noted in HPI and below Exam Const: General: no acute distress, alert and awake Orientation/consciousness: patient oriented x3 HENMT: Head: normocephalic and atraumatic Ears: hearing grossly normal bilaterally and external ears normal Face and sinus: face symmetric Mouth: Yes Normal oral and palatal mucosa present Eyes: EOM: EOMs intact bilaterally Neck: Neck: full ROM, trachea midline and no JVD Thyroid: thyroid normal Resp: Effort & Inspection: normal respiratory effort Auscultation: clear to auscultation bilaterally Cardio: Jugular venous distension: no JVD Rate: regular rate Rhythm: regular rhythm Heart sounds: S1 normal heart sound present and S2 normal heart sound present GI: Inspection: normal to inspection GI Palp: Yes Soft to palpation Percussion
[2021-03-19] MEDS: MAGNESIUM OXIDE 400 MG TABLET PO (17:36)
[2021-03-19] MEDS: QUEtiapine FUMARATE 25 MG TABLET PO (21:09)
[2021-03-20] VITALS (28 sets, daily range): BP systolic 97–178; BP diastolic 60–108; PULSE 51–77; RESP 12–18; TEMP 36.2–37; O2SAT 90–97
--- NOTE | 2021-03-20 02:25 | PC.NURSE ---
Pt's remains at the bedside in recliner. Pt has not been confused or hallucinated this evening but she wanted to stay just in case
[2021-03-20] MEDS: HYDROcodone/acetaminophen (*CRX) 5-325 MG TABLET 1 TAB PO ×2 (05:45→17:59)
[2021-03-20] MEDS: ASPIRIN 81 MG CHEWABLE TABLET PO (08:14)
[2021-03-20] MEDS: ATORVASTATIN 40 MG TABLET PO (08:15)
[2021-03-20] MEDS: amLODIPine BESYLATE 5 MG TABLET PO (08:15)
[2021-03-20] MEDS: TIMOLOL MALEATE 0.5% OP SOLN 5 ML BOTTLE 1 DROP EACH EYE ×2 (08:15→21:38)
[2021-03-20] MEDS: MAGNESIUM OXIDE 400 MG TABLET PO (08:16)
[2021-03-20] MEDS: BRIMONIDINE TARTRATE 0.2% OP SOLN 5 ML BTL 1 DROP EACH EYE ×2 (08:17→21:38)
--- NOTE | 2021-03-20 08:26 | WPDMODSED ---
Moderate Sedation Note-Pt Data Patient Data Diagnosis: Coronary artery disease with PCI to diagonal of the LAD 1 year ago atypical chest pain abnormal nuclear stress test Present Complaint: intermittent chest pain Procedure to be performed/Plan: left heart catheterization Allergies Allergy/AdvReac Type Severity Reaction Status Date / Time tramadol Allergy Mild SEIZURE Verified 03/18/21 15:20 Home Medications Medication Instructions Recorded Confirmed Type multivitamin 1 tablet PO DAILY 07/19/19 03/18/21 History Combigan 1 drp OPHTHALMIC (EYE) BID 03/12/20 03/18/21 History cetirizine [Zyrtec] 10 mg PO HS 03/12/20 03/18/21 History pregabalin [Lyrica] 150 mg PO HS 03/12/20 03/18/21 History aspirin [Children's Aspirin] 81 mg PO DAILY@0800 #30 tablet 03/14/20 03/18/21 Rx atorvastatin 40 mg PO DAILY #30 tablet 03/14/20 03/18/21 Rx lisinopril 10 mg PO HS #30 tablet 03/14/20 03/18/21 Rx pantoprazole 40 mg PO QAM #30 tablet 03/14/20 03/18/21 Rx budesonide-formoterol HFA 160 2 puff INHALATION Q12H #10.2 g 04/25/20 03/18/21 Rx mcg-4.5 mcg/actuation aerosol inhaler Hydromorphone Pain Pump 3.897 mg IMPLANT DAILY 04/30/20 03/18/21 History ascorbic acid (vitamin C) [Vitamin 500 mg PO DAILY 04/30/20 03/18/21 History C] cholecalciferol (vitamin D3) 25 mcg PO DAILY 04/30/20 03/18/21 History [Vitamin D3] magnesium 500 mg PO DAILY 04/30/20 03/18/21 History vitamin B complex [B Complex] 1 cap PO DAILY 04/30/20 03/18/21 History vitamin E 1 tablet PO DAILY 04/30/20 03/18/21 History albuterol sulfate 2 puff INHALATION QID PRN #8 gm 07/29/20 03/18/21 Rx Current Medications: Active Medications Hydrocodone Bitart/Acetaminophen (Hydrocodone/Acetaminophen (*Crx) 5-325 Mg Tablet) 1 tab PO Q4H PRN PRN Reason: Pain Rated 4-6 Last Admin: 03/20/21 05:45 Dose: 1 tab Documented by: Albuterol (Albuterol Sulfate Neb 2.5 Mg/3 Ml Inh) 2.5 mg INHALATION Q4HRT PRN PRN Reason: Shortness Of Breath Amlodipine Besylate (Amlodipine Besylate 5 Mg Tablet) 5 mg PO QAM [facility] Last Admin: 03/20/21 08:15 Dose: 5 mg Documented by: Aspirin (Aspirin 81 Mg Chewable Tablet) 81 mg PO DAILY@0800 [facility] Last Admin: 03/20/21 08:14 Dose: 81 mg Documented by: Atorvastatin Calcium (Atorvastatin 40 Mg Tablet) 40 mg PO DAILY [facility] Last Admin: 03/20/21 08:15 Dose: 40 mg Documented by: Brimonidine Tartrate (Brimonidine Tartrate 0.2% Op Soln 5 Ml Btl) 1 drop EACH EYE Q12HR [facility] Last Admin: 03/20/21 08:17 Dose: 1 drop Documented by: Budesonide/Formoterol Fumarate (Budesonide/Form 160-4.5 Mcg (*Sp)) 2 puff INHALATION Q12HRT [facility] Last Admin: 03/19/21 20:49 Dose: 2 puff Documented by: Chlordiazepoxide HCl (Chlordiazepoxide (*Crx) 25 Mg Capsule) 50 mg PO Q6HR [facility] Last Admin: 03/20/21 05:49 Dose: Not Given Documented by: Sodium Chloride (Normal Saline Iv) 500 mls @ 100 mls/hr IV CONT .Q5H [facility] Ipratropium Lydia (Ipratropium Br 0.02% Inh Soln 0.5 Mg/2.5 Ml Vial) 0.5 mg INHALATION Q6HRT [facility] Last Admin: 03/20/21 03:08 Dose: Not Given Documented by: Labetalol HCl (Labetalol Hcl Inj 100 Mg/20 Ml Vial) 10 mg IV PUSH Q6H PRN PRN Reason: hypertension Lisinopril (Lisinopril 10 Mg Tablet) 10 mg PO HS [facility] Last Admin: 03/19/21 21:07 Dose: 10 mg Documented by: Lorazepam (Lorazepam Inj (*Crx) 2 Mg/Ml Vial) 1 mg IV PUSH Q6H PRN PRN Reason: Anxiety Last Admin: 03/18/21 23:55 Dose: 1 mg Documented by: Magnesium Oxide (Magnesium Oxide 400 Mg Tablet) 400 mg PO DAILY [facility] Last Admin: 03/20/21 08:16 Dose: 400 mg Documented by: Morphine Sulfate (Morphine Sulfate (*Crx) 4 Mg/Ml Inj) 4 mg IV PUSH Q2H PRN PRN Reason: Pain Rated 7-10 Nitroglycerin (Nitroglycerin Sl 0.4 Mg Tablet) 0.4 mg SUBLINGUAL Q5MIN PRN PRN Reason: Chest Pain Last Admin: 03/18/21 10:19 Dose: 0.4 mg Documented by: Non-Formulary Medication (Hydromorphone Pain Pump) 3.897 mg XX DAILY [facility] Stop: 04/18/21 08:59 Last Admin: 03/19/21 21:14 Dose: Not Given Documented by: Derrick
--- NOTE | 2021-03-20 08:31 | PC.NURSE ---
TO CCL VIA STRETCHER FOR [facility] W/ DR. BELTRAN. DENIES PAIN OR SOB THIS AM.
--- NOTE | 2021-03-20 09:07 | WPDCARDPROC ---
Cardiac Cath Procedure Note Date of procedure:: 03/20/21 Performing physician:: Mike Alfonso MD Indication:: atypical chest pain coronary artery disease with previous PCI to diagonal 1 year ago abnormal nuclear stress test suggest inferior ischemia, unchanged from 1 year ago Brief clinical history:: this is a 71-year-old man with a history of coronary disease and ethanol abuse. He presents to the hospital with intermittent chest pain. There is no evidence of acute syndrome. A nuclear stress test was interpreted as showing inferior ischemia prompting recommendation for a follow-up anti angiogram today. It should be noted that he had a similar stress test finding 1 year ago at which time he had disease limited to a diagonal branch in the LAD that was treated with stenting. Procedure Procedure performed:: Left ventriculogram coronary angiogram Angio-Seal to right femoral artery Sedation/Medication given:: no additional sedation given Access site:: right femoral artery Estimated blood loss:: 15 cc Procedure note:: patient was brought to the cardiac catheterization lab in the postabsorptive state the right femoral triangle was prepared in the normal fashion. Anesthesia was provided with 1% lidocaine infiltrated locally. Using a modified Seldinger technique I placed a 5 [place] sheath in the femoral artery after this left ventriculography was performed using a 5 [place] angled pigtail catheter. Left trick and aortic hemodynamics were also documented. After this a 5 [place] JR4 catheter was used to engage and inject the right coronary artery. A 5 [place] FL4 catheter was used to engage and inject the left coronary artery. Following this the cineangiograms were reviewed and an angiogram was done of the femoral artery through the sheath. After this 6 [place] Angio-Seal device was deployed with a good hemostatic result. There were no apparent procedural complications. He left the clinical laboratory director with no evidence of a groin hematoma. Findings:: Hemodynamics: The central aorta is 138 over 64 left ventricle 138/2 end-diastolic pressure 14 there is no gradient on pullback across the aortic valve. Left ventricle: The LV is normal in size. The infero posterior segment is hypodynamic the remainder of the contracts well. The global ejection fraction is 50% by visual estimation. The left main coronary artery is nicely patent the left anterior descending is a medium caliber artery reaching down to around the apex. There is no significant disease in the LAD itself. This visible stent material in the midportion of the diagonal branch of the LAD. The stented region is nicely patent. There is a 70-80% stenosis just after the distal margin of the stent. The circumflex is a medium caliber vessel giving rise to the marginal branches the circumflex system is smooth and angiographically free of disease right coronary artery is moderate caliber and dominant to the posterior circulation the right coronary artery is also smooth and free of disease. Conclusion:: 1. Coronary artery disease as detailed above with previous stenting to diagonal branch of the LAD. There appears to be about 70-80% stenosis at the distal margin of the stent which certainly may be angiographically flow-limiting however there is no anterior defect on his nuclear stress test and this stenosis has nothing to do with the inferior defect that is noted on nuclear study. 2. Mild LV systolic dysfunction with inferior hypocontractility that again is not subtended by the diseased diagonal branch of the LAD. 3. Ongoing medical therapy of this patient's coronary disease is indicated based on these findings Mike Alfonso MD [facility]
--- NOTE | 2021-03-20 09:15 | PC.NURSE ---
RETURNS TO [facility] 4 S/P [facility] W/ DR. BELTRAN. ANGIOSEAL CLOSURE TO R. GROIN SITE. GAUZE AND TEGADERM DRESSING C/D/I TO SITE; SOFT, NONTENDER. NO BLEEDING OR HEMATOMA NOTED. SEE PHASE II FOR DOCUMENTATION.
[2021-03-20] MEDS: SODIUM CHLORIDE 0.9% IV 1,000 ML 125 ML IV CONT (09:20)
--- NOTE | 2021-03-20 09:39 | PCRCNOTE ---
Window of time for administration has passed. See next scheduled administration.
--- NOTE | 2021-03-20 10:31 | PC.NURSE ---
END PHASE II RECOVERY. RETURNS TO [facility] DOCUMENTATION. BEDREST CONTINUES X 2 HOURS UNITL 1120 S/P [facility] W/ DR. BELTRAN. R. GROIN SITE REMAINS SOFT, NONTENDER. DRESSING C/D/I. DENIES PAIN OR SOB. DROWSY AND NAPS WHEN NOT DISTURBED. WILL CONTINUE TO MONITOR. AT BEDSIDE. HOB NOW UP 30 DEGREES.
--- NOTE | 2021-03-20 11:20 | PC.NURSE ---
BEDREST X 2 HOURS COMPLETE AT THIS TIME. UP TO BATHROOM TO VOID, THEN REQUESTS TO RETURNS TO BED. HOB UP. REMAINS DROWSY. DENIES PAIN OR SOB. ENCOURAGED TO TURN, COUGH, DEEP BREATHE. HELD NOON DOSE OF LIBRIUM DUE TO EXCESSIVE DROWSINESS.
--- NOTE | 2021-03-20 15:45 | PC.NURSE ---
MED CHANGES MADE BY BARRY Wolff NP DUE TO EXCESSIVE DROWSINESS. THIS RN HAS UPDATED HER ON RESP STATUS, SATS ON ROOM AIR, ENCOURAGEMENT TO COUGH AND DEEP BREATHE AND GET UP IN CHAIR. O2 1L NC ON. WILL CONTINUE TO MONITOR.
--- NOTE | 2021-03-20 16:19 | PM.IMPN ---
Progress Note: A&P Assessment and Plan (1) Chest pain: Onset Date: 03/2021 Qualifiers: Chest pain type: chest pain due to myocardial ischemia Ischemic chest pain type: other angina pectoris type Qualified Code(s): I20.8 - Other forms of angina pectoris Code(s): R07.9 - Chest pain, unspecified Status: Acute Assessment and Plan: HEART SCORE: 5 Troponin Negative x2 Cardiology following, appreciate their recommendations. Continue ASA, s/p full dose given in ER. ST this morning abnormal-->Small basilar inferolateral infarct with surrounding ischemia which extends more anteriorly in the basilar inferolateral segment as well as into the adjacent mid inferolateral and basilar inferior segments. Had a diagonal lesion stented at that time, not sure that the lesion matches the defect. S/p cc today-->LAD stent patent; 70-80% stenosis at distal margin of the stent, mild LV dysfunction Continue medical management per cards (2) Dyspnea: Onset Date: Unknown Qualifiers: Dyspnea type: unspecified Qualified Code(s): R06.00 - Dyspnea, unspecified Code(s): R06.00 - Dyspnea, unspecified Status: Chronic Assessment and Plan: Continue Budesonide Q12 hrs Duoneb Q6 hrs Albuterol neb Q4 hrs prn Wheezing CXR and CTA both negative for any acute findings (3) Essential (primary) hypertension: Onset Date: Unknown Code(s): I10 - Essential (primary) hypertension Status: Chronic Assessment and Plan: Continue home meds Monitor (4) CAD (coronary artery disease): Onset Date: ~03/2020 Qualifiers: Coronary Disease-Associated Artery/Lesion type: [place] artery [place] vs. transplanted heart: [place] heart Associated angina: with other forms of angina Qualified Code(s): I25.118 - Atherosclerotic heart disease of [place] coronary artery with other forms of angina pectoris Code(s): I25.10 - Atherosclerotic heart disease of [place] coronary artery without angina pectoris Status: Resolved Assessment and Plan: History of ACS with stent placement last year Cardiology following recommendations apprecaited Resume home meds - Monitor. - Appreciate Cardiology recs. (5) Chronic back pain greater than 3 months duration: Onset Date: Unknown Code(s): M54.9 - Dorsalgia, unspecified; G89.29 - Other chronic pain Status: Chronic Assessment and Plan: Implanted Dilaudid Pain Pump Continue Lyrica 150 mg po HS Hydrocodone 5/325 Q4 hrs prn ordered (6) EtOH dependence: Code(s): F10.20 - Alcohol dependence, uncomplicated Status: Acute Assessment and Plan: Suspect withdrawal Decreased Librium 25 mg q.6 hours scheduled CIWA in place Monitor Additional Plan CODE STATUS: FULL CODE Subjective Date/time seen: 03/20/21 16:19 Interval history: Pt seen and evaluated; labs, VS, diagnostic reports reviewed; no acute events overnight; is at the bedside; s/p CC Exam Const: General: no acute distress, alert and awake Orientation/consciousness: patient oriented x3 HENMT: Head: normocephalic and atraumatic Ears: hearing grossly normal bilaterally and external ears normal Face and sinus: face symmetric Mouth: Yes Normal oral and palatal mucosa present Eyes: Pupils: Equal, round and reactive pupils present EOM: EOMs intact bilaterally Neck: Neck: full ROM, trachea midline and no JVD Thyroid: thyroid normal Resp: Effort & Inspection: normal respiratory effort Auscultation: clear to auscultation bilaterally Cardio: Jugular venous distension: no JVD Rate: regular rate Rhythm: regular rhythm Heart sounds: S1 normal heart sound present and S2 normal heart sound present GI: Inspection: normal to inspection Auscultation: normal bowel sounds : General: Yes no CVA tenderness Back/Spine/Pelvis: Back: no CVA tenderness Skin: General skin exam: normal color Rashes: no rashes Neuro: General
[2021-03-20] MEDS: VITAMIN B COMPLEX CAPSULE 1 CAP PO (17:59)
[2021-03-20] MEDS: PANTOPRAZOLE 40 MG TABLET PO (17:59)
[2021-03-20] MEDS: chlordiazePOXIDE (*CRX) 25 MG CAPSULE PO ×2 (18:00→23:04)
[2021-03-20] MEDS: IPRATROPIUM BR 0.02% INH SOLN 0.5 MG/2.5 ML VIAL INHALATION (20:59)
[2021-03-20] MEDS: PREGABALIN (*CRX) 75 MG CAPSULE 150 MG PO (21:37)
[2021-03-20] MEDS: lisinopriL 10 MG TABLET PO (21:38)
[2021-03-21] VITALS (10 sets, daily range): BP systolic 99–140; BP diastolic 74–82; PULSE 58–90; RESP 14–20; TEMP 36.7–36.9; O2SAT 91–95
[2021-03-21] MEDS: HYDROcodone/acetaminophen (*CRX) 5-325 MG TABLET 1 TAB PO (00:03)
[2021-03-21] MEDS: IPRATROPIUM BR 0.02% INH SOLN 0.5 MG/2.5 ML VIAL INHALATION ×2 (03:12→09:54)
--- NOTE | 2021-03-21 03:13 | PCRCNOTE ---
Window of time for administration has passed. See next scheduled administration.
[2021-03-21 06:14] LABS: Hematocrit 44.6 % (42.0-52.0); Hemoglobin 14.5 g/dL (14.0-18.0); Mean Corpuscular HGB Conc 32.5 g/dl (32-36); Mean Corpuscular Hemoglobin 28.3 pg (26-34); Mean Corpuscular Volume 87.1 fl (80-100); Mean Platelet Volume 9.7 fl (7.4-10.4); Platelet Count Result 181 k/mm3 (150-375); Red Blood Count 5.12 M/mm3 (4.6-6.20); Red Cell Distribution Width 13.3 % (11.5-14.5); White Blood Count 5.4 K/mm3 (4.5-10.0)
[2021-03-21 06:24] LABS: Anion Gap 8 mmol/L (8-16); Blood Urea Nitrogen 16 mg/dL (9-20); Calcium 8.6 mg/dL (8.4-10.2); Carbon Dioxide 29 mmol/L (22-30); Chloride 104 mmol/L (98-107); Estimated CRCL calculation 94 ml/min; Estimated Glomerular Filt Rate > 60; Glucose 106 mg/dL (65-110); Potassium 4.4 mmol/L (3.4-5.0); Sodium 141 mmol/L (137-145)
[2021-03-21] MEDS: ASPIRIN 81 MG CHEWABLE TABLET PO (09:05)
[2021-03-21] MEDS: amLODIPine BESYLATE 5 MG TABLET PO (09:05)
[2021-03-21] MEDS: MAGNESIUM OXIDE 400 MG TABLET PO (09:06)
[2021-03-21] MEDS: METOPROLOL SUCCINATE EXT REL 25 MG TABCR PO (09:06)
[2021-03-21] MEDS: ATORVASTATIN 40 MG TABLET PO (09:06)
[2021-03-21] MEDS: BRIMONIDINE TARTRATE 0.2% OP SOLN 5 ML BTL 1 DROP EACH EYE (09:07)
[2021-03-21] MEDS: VITAMIN B COMPLEX CAPSULE 1 CAP PO (09:07)
[2021-03-21] MEDS: PANTOPRAZOLE 40 MG TABLET PO (09:07)
[2021-03-21] MEDS: TIMOLOL MALEATE 0.5% OP SOLN 5 ML BOTTLE 1 DROP EACH EYE (09:08)
--- NOTE | 2021-03-21 09:50 | PC.NURSE ---
Transport here to take pt to radiology
--- NOTE | 2021-03-21 11:48 | PM.DS ---
DS: Admitting Diagnosis Discharge Date 03/20/2021 Admitting Diagnosis Chest Pain DS: Discharge Diagnosis Discharge Diagnosis (1) Chest pain: Onset Date: 03/2021 Qualifiers: Chest pain type: chest pain due to myocardial ischemia Ischemic chest pain type: other angina pectoris type Qualified Code(s): I20.8 - Other forms of angina pectoris Code(s): R07.9 - Chest pain, unspecified Status: Acute Assessment and Plan: HEART SCORE: 5 Troponin Negative x2 Cardiology following, appreciate their recommendations. Continue ASA, s/p full dose given in ER. ST this morning abnormal-->Small basilar inferolateral infarct with surrounding ischemia which extends more anteriorly in the basilar inferolateral segment as well as into the adjacent mid inferolateral and basilar inferior segments. Had a diagonal lesion stented at that time, not sure that the lesion matches the defect. S/p cc today-->LAD stent patent; 70-80% stenosis at distal margin of the stent, mild LV dysfunction Continue medical management per cards (2) Dyspnea: Onset Date: Unknown Qualifiers: Dyspnea type: unspecified Qualified Code(s): R06.00 - Dyspnea, unspecified Code(s): R06.00 - Dyspnea, unspecified Status: Chronic Assessment and Plan: Continue Budesonide Q12 hrs Duoneb Q6 hrs Albuterol neb Q4 hrs prn Wheezing CXR and CTA both negative for any acute findings (3) Essential (primary) hypertension: Onset Date: Unknown Code(s): I10 - Essential (primary) hypertension Status: Chronic Assessment and Plan: Continue home meds Monitor (4) CAD (coronary artery disease): Onset Date: ~03/2020 Qualifiers: Associated angina: with other forms of angina Coronary Disease-Associated Artery/Lesion type: [place] artery [place] vs. transplanted heart: [place] heart Qualified Code(s): I25.118 - Atherosclerotic heart disease of [place] coronary artery with other forms of angina pectoris Code(s): I25.10 - Atherosclerotic heart disease of [place] coronary artery without angina pectoris Status: Resolved Assessment and Plan: History of ACS with stent placement last year Cardiology following recommendations apprecaited Resume home meds - Monitor. - Appreciate Cardiology recs. (5) Chronic back pain greater than 3 months duration: Onset Date: Unknown Code(s): M54.9 - Dorsalgia, unspecified; G89.29 - Other chronic pain Status: Chronic Assessment and Plan: Implanted Dilaudid Pain Pump Continue Lyrica 150 mg po HS Hydrocodone 5/325 Q4 hrs prn was ordered (6) EtOH dependence: Code(s): F10.20 - Alcohol dependence, uncomplicated Status: Acute Assessment and Plan: Suspect withdrawal Decreased Librium 25 mg q.6 hours scheduled CIWA DS: Summary Hospital Course Hospital Course: Mr. Wellington is a 71 year old man with a significant PMH of ACS with [place] s/p stent placement in 2019, COPD, and HTN. He presented to the ER with complaints chest pain. The pt. endorsed having N/V x2 yesterday, and feeling weak with an intermittent heaviness in his chest, fingers on bilateral hands tingling, and just not feeling right. He described the discomfort as pressure, there was no radiation, no palpitations. He denied any new dyspnea. Nothing has made his symptoms worse, but the Nitro he received here did make it better, although it made him diaphoretic and he had tingling at the site of where the nitro was applied. He denied any sick contacts, any cough, and no recent COVID+ contacts. He did receive the COVID vaccine. In the ER he was given Ativan with relief of some anxiety. CXR, CTA of Chest were both negative for any acute findings including PE, Troponin's x2 have been negative thus far, and EKG shows NSR at 64 bpm without any ectopy or ischemia. Review of the He is followed by Dr. Ruiz, signal tester from [facility], and followed up with him on 02/09
== END 2021-03-21 12:10 | disposition home or self-care (01) | DRG 287 ==
LOC: ANHED 09:41 → ANHCPC 13:52
PROVIDERS: Internal Medicine; Nurse Practitioner Adult Health; Specialist; Admitting Provider Hospitalist; Emergency Provider Emergency Medicine; PCP Family Medicine; Visit Provider Internal Medicine Nephrology
PROC: 4A023N7 Measurement of Cardiac Sampling and Pressure, Left Heart, Percutaneous Approach (ICD-10-PCS; CPT 93452; principal; 2021-03-20 08:30)
PROC: 4A023N7 Measurement of Cardiac Sampling and Pressure, Left Heart, Percutaneous Approach (ICD-10-PCS; 2021-03-20 08:30)
DX: I25.119 Atherosclerotic heart disease of native coronary artery with unspecified angina pectoris (principal); F10.239 Alcohol dependence with withdrawal, unspecified; I10 Essential (primary) hypertension; M54.9 Dorsalgia, unspecified; G89.29 Other chronic pain; F10.20 Alcohol dependence, uncomplicated; J44.9 Chronic obstructive pulmonary disease, unspecified; F41.9 Anxiety disorder, unspecified; J98.4 Other disorders of lung; I25.2 Old myocardial infarction; Z95.5 Presence of coronary angioplasty implant and graft
CPT/HCPCS: 36415; 71046; 71275; 78452; 80048; 80053; 80307; 83735; 83880; 84484; 85025; 85027; 85610; 85730; 93005; 93017; 93458; 94640; 94762; 96374; 96375; 96376; 99285; A9270; A9502; C1760; C1887; C1894; C9113; G0269; G0378; J1644; J2060; J2785; J7030; J7040; Q9967

== ENCOUNTER 2021-03-21 23:06 | Emergency (ER) | payer MEDICARE, OTHER, SELFPAY ==
--- NOTE | ~2021-03-21 | XR_ITS ---
EXAMINATION: XR chest 1V portable EXAM DATE: 03/22/2021 00:01 INDICATION: Chest pain. TECHNIQUE: Portable AP frontal chest x-ray was obtained. Comparison is made to prior examination from 03/18/2021. FINDINGS: Relatively low lung volume. The lungs are clear. There are no pleural effusions. The card iomediastinal silhouette is within normal limits. There is no pneumothorax suspected. The bones and soft tissues are unremarkable. IMPRESSION: No acute cardiopulmonary findings. Reviewed, dictated and finalized at location A.
[2021-03-21 22:50] VITALS: BP 181/107; PULSE 85; RESP 18; TEMP 37.1; O2SAT 95; O2SAT 96
[2021-03-21 23:42] LABS: Basophils Percent Auto 0.3 % (0.2-1.2); Eosinophils Absolute Auto 0.4 K/mm3 (0-0.3); Eosinophils Percent Auto 5.3 % (0-4.4); Hematocrit 44.6 % (42.0-52.0); Hemoglobin 14.5 g/dL (14.0-18.0); Immature Granulocyte Absolute 0.02 K/mm3 (0.00-0.031); Immature Granulocyte Percent A 0.3 % (0-0.5); Lymphocytes Absolute Auto 0.98 K/mm3 (0.9-3.2); Lymphocytes Percent Auto 14.9 % (18.3-44.2); Mean Corpuscular HGB Conc 32.5 g/dl (32-36); Mean Corpuscular Hemoglobin 28.4 pg (26-34); Mean Corpuscular Volume 87.5 fl (80-100); Mean Platelet Volume 9.6 fl (7.4-10.4); Monocytes Absolute Auto 0.6 K/mm3 (0.1-0.6); Monocytes Percent Auto 9.3 % (2.6-8.5); Neutrophils Absolute Auto 4.6 K/mm3 (1.3-6.7); Neutrophils Percent Auto 69.9 % (45.5-73.1); Platelet Count Result 189 k/mm3 (150-375); Red Cell Distribution Width 13.2 % (11.5-14.5); White Blood Count 6.6 K/mm3 (4.5-10.0)
[2021-03-21 23:53] LABS: Alanine Aminotransferase 29 U/L (4-50); Albumin Level 4.1 g/dL (3.5-5.1); Alkaline Phosphatase 85 U/L (38-126); Anion Gap 8 mmol/L (8-16); Aspartate Amino Transferase 33 U/L (17-59); Bilirubin,Total 0.6 mg/dL (0.2-1.3); Blood Urea Nitrogen 12 mg/dL (9-20); Calcium 8.9 mg/dL (8.4-10.2); Carbon Dioxide 28 mmol/L (22-30); Chloride 100 mmol/L (98-107); Estimated CRCL calculation 108 ml/min; Estimated Glomerular Filt Rate > 60; Glucose 171 mg/dL (65-110); Lipase 105 U/L (23-300); Potassium 4.1 mmol/L (3.4-5.0); Sodium 136 mmol/L (137-145)
[2021-03-21 23:56] LABS: Prothrombin Time 13.1 Seconds (11.1-14.7)
[2021-03-21 23:57] LABS: Partial Thromboplastin Time 30.2 SECONDS (22.3-36.8)
[2021-03-22 00:05] LABS: Troponin I < 0.012 ng/mL (0.000-0.034)
[2021-03-22 00:25] VITALS: BP 147/92; PULSE 82; RESP 19; O2SAT 96
[2021-03-22] MEDS: ONDANSETRON INJ 4 MG/2 ML VIAL IV PUSH (00:45)
[2021-03-22 01:25] VITALS: BP 134/85; PULSE 82; TEMP 36.8; O2SAT 91
[2021-03-22 02:47] LABS: Troponin I < 0.012 ng/mL (0.000-0.034)
[2021-03-22] MEDS: HYDROcodone/acetaminophen (*CRX) 5-325 MG TABLET 1 TAB PO (03:00)
--- NOTE | 2021-03-22 03:38 | ED.GENADULT ---
HPI - General Adult General Chief complaint: Chest Pain Stated complaint: cp Time Seen by Provider: 03/21/21 23:08 History of Present Illness HPI narrative: Patient is a 71-year-old gentleman who presents emerged department with chief plaint of chest pain. The patient was just discharged from the hospital today after he had had a cardiac catheterization that showed no blockages that required intervention. Patient was started on a beta-marcy today and went home and has been feeling weak and has had difficulty ambulating around since then. The patient states has had some episodes of getting diaphoresis denies shortness of breath states that he just does not feel well. Patient reports symptoms or not improved by anything. Related Data Home Medications Medication Instructions Recorded Confirmed multivitamin 1 tablet PO DAILY 07/19/19 03/18/21 Combigan 1 drp OPHTHALMIC (EYE) BID 03/12/20 03/18/21 cetirizine [Zyrtec] 10 mg PO HS 03/12/20 03/18/21 pregabalin [Lyrica] 150 mg PO HS 03/12/20 03/18/21 Hydromorphone Pain Pump 3.897 mg IMPLANT DAILY 04/30/20 03/18/21 ascorbic acid (vitamin C) [Vitamin 500 mg PO DAILY 04/30/20 03/18/21 C] cholecalciferol (vitamin D3) 25 mcg PO DAILY 04/30/20 03/18/21 [Vitamin D3] magnesium 500 mg PO DAILY 04/30/20 03/18/21 vitamin B complex 1 cap PO DAILY 04/30/20 03/18/21 vitamin E 1 tablet PO DAILY 04/30/20 03/18/21 brimonidine drp 03/21/21 Allergies Allergy/AdvReac Type Severity Reaction Status Date / Time tramadol Allergy Mild SEIZURE Verified 03/21/21 23:05 Review of Systems Review of Systems: A 10 system review of systems was completed on the patient and is negative except for what is stated in the HPI. Nursing and ancillary documentation was reviewed. [facility] Past Medical History Medical History Actinic keratoses Adhesion of intestine (~1969) Essential (primary) hypertension (Unknown) Myocardial infarction Overweight (BMI 25.0-29.9) Wrist injury (~1968) Surgical History Surgical History History of esophagogastroduodenoscopy (EGD) Family History Family History Mother Diabetes mellitus Patient's mother is Family history of cardiovascular disease Father Patient's father is Social History Social History Smoking status: Never smoker Alcohol intake: current Drinks per week: 6 Substance use: never Substance use type: does not use Gender identity (if verbalized by the patient): Male Spiritual care concerns: No Exam Narrative: GENERAL: Well-appearing, well-nourished, and in no acute distress. HEAD: Normocephalic, atraumatic. EYES: PERRLA and EOMI. ENT: Nares clear, no rhinorrhea or epistaxis. Mucous membranes moist. NECK: Supple. CHEST: Clear to auscultation. No respiratory distress. HEART: Regular rate and rhythm. No murmur heard. Normal peripheral pulses. ABDOMEN: Soft, nontender, nondistended, normal active bowel sounds. EXTREMITIES: Normal range of motion. No edema. SKIN: Warm, dry, no rash. NEURO: No focal deficits. Alert and oriented x3. PSYCH: Normal mood and affect. Course Course Emergency Course: Patient's EKG showed no evidence of acute ST elevations. A 0-hour and 3-hour troponin have been negative so far the patient states that he feels extremely weak and the patient was attempted to be ambulated he was able to walk several feet but then became extremely weak and had to be facilitated back to his stretcher. Vital Signs Vital signs: Vital Signs Temperature 37.1 C 03/21/21 22:50 Pulse Rate 85 03/21/21 22:50 Respiratory Rate 18 03/21/21 22:50 Blood Pressure 181/107 H 03/21/21 22:50 Pulse Oximetry 96 03/21/21 22:50 Temperature 36.8 C 03/22/21
[2021-03-22 03:54] VITALS: BP 126/72; PULSE 79; RESP 12; O2SAT 98
[2021-03-22 05:56] VITALS: BP 128/75; PULSE 80; RESP 16; O2SAT 98
== END 2021-03-22 05:08 | disposition home or self-care (01) ==
PROVIDERS: Emergency Provider Emergency Medicine; PCP Family Medicine
DX: R07.9 Chest pain, unspecified (principal); I10 Essential (primary) hypertension; I25.2 Old myocardial infarction; E66.3 Overweight; Z68.26 Body mass index [BMI] 26.0-26.9, adult
CPT/HCPCS: 36415; 71045; 80053; 83690; 84484; 85025; 85610; 85730; 96374; 99284; A9270; J2405

== ENCOUNTER 2021-09-10 21:43 | Inpatient (IN) | payer MEDICARE, OTHER, SELFPAY ==
[2021-09-10] VITALS (14 sets, daily range): BP systolic 124–158; BP diastolic 77–82; PULSE 54–62; RESP 12–20; TEMP 36.5–36.6; O2SAT 92–98; BMI 24.0
--- NOTE | ~2021-09-10 | XR_ITS ---
EXAMINATION: XR chest 2V 09/10/2021 22:41 INDICATION: Chest pain and shortness of breath PROCEDURE: 2 view chest COMPARISON: Comparison to multiple prior studies sequentially, with oldest reviewed study dated 04/10. FINDINGS: The lungs are clear. The cardiomediastinal silhouette is within normal limits. There are no pleural effusions. There is no pneumothorax suspected. IMPRESSION: 1: NO ACUTE CARDIOPULMONARY DISEASE. Reviewed, dictated and finalized at location [facility]
--- NOTE | 2021-09-10 22:08 | ECG_ITS ---
Measurements Intervals [place] Rate: 62 P: 40 ME: 192 QRS: 9 QRSD: 92 T: 33 QT: 401 QTc: 409 Interpretive Statements SINUS RHYTHM NORMAL ECG COMPARED TO ECG 03/18/2021 10:35:27 SINUS RHYTHM NOW PRESENT Electronically Signed On 09-11-2021 10:31:44 BATCH ATTENDANT by Weston Baker M.D.
--- NOTE | 2021-09-10 22:19 | ED.WEAKNESS ---
HPI - Weakness General Chief complaint: Chest Pain Stated complaint: weak and shaky Time Seen by Provider: 09/10/21 22:09 History of Present Illness HPI Narrative: 71-year-old male presents to the emergency room with ongoing weakness for a couple of weeks. Patient states he is scheduled for a back procedure where they are going to remove prior placed plates and screws from a fusion. Also reports he was recently evaluated by a motor and generator brush maker, and had a nuclear stress test. Patient is scheduled for a stent placement tomorrow morning. Patient states that he is afraid, and does not want to stay at home tonight for fear that something may happen. Denies chest pain, denies shortness of breath. Related Data Home Medications Medication Instructions Recorded Confirmed Combkathleen 1 drp OPHTHALMIC (EYE) BID 03/12/20 08/12/21 pregabalin [Lyrica] 150 mg PO HS 03/12/20 08/12/21 Hydromorphone Pain Pump 3.897 mg IMPLANT DAILY 04/30/20 08/12/21 ascorbic acid (vitamin C) [Vitamin 500 mg PO DAILY 04/30/20 08/12/21 C] cholecalciferol (vitamin D3) 25 mcg PO DAILY 04/30/20 08/12/21 [Vitamin D3] magnesium 500 mg PO DAILY 04/30/20 08/12/21 vitamin B complex 1 cap PO DAILY 04/30/20 08/12/21 vitamin E 1 tablet PO DAILY 04/30/20 08/12/21 apple cider vinegar 500 mg tablet 450 mg PO tablet 04/10/21 08/12/21 clopidogrel 75 mg tablet 75 mg PO DAILY 04/10/21 07/02/21 amoxicillin 875 mg-potassium 1 tablet PO TID tablet 08/12/21 08/12/21 clavulanate 125 mg tablet cyanocobalamin (vitamin B-12) 1,000 mcg PO DAILY 08/12/21 08/12/21 1,000 mcg capsule dextromethorphan-guaifenesin 30 1 tablet PO Q12H 08/12/21 08/12/21 mg-600 mg tablet extended [id number] hr famotidine 20 mg tablet 20 mg PO DAILY 08/12/21 08/12/21 ferrous sulfate 325 mg (65 mg 325 mg PO DAILY 08/12/21 08/12/21 iron) tablet thiamine mononitrate (vit B1) 100 100 mg PO DAILY 08/12/21 08/12/21 mg tablet Allergies Allergy/AdvReac Type Severity Reaction Status Date / Time tramadol Allergy Mild SEIZURE Verified 09/10/21 21:51 Review of Systems Review of Systems: CONSTITUTIONAL: Denies fever, chills, or sweats. EYES: Denies visual changes, redness, or discharge. ENT: Denies rhinorrhea, congestion, sore throat, or otalgia. CARDIOVASCULAR: Denies chest pain, palpitations, or edema. RESPIRATORY: Denies cough or dyspnea. GASTROINTESTINAL: Denies abdominal pain, nausea, vomiting, or diarrhea. GENITOURINARY: Denies dysuria or hematuria. SKIN: Denies rash or itching. MUSCULOSKELETAL: Denies back pain, joint pain, or myalgia. NEUROLOGIC: Denies headache, numbness, dizziness, or reports generalized weakness and malaise PSYCHIATRIC: Denies anxiety or depression. FOR[facility]LY [facility], [facility] Past Medical History Medical History Actinic keratoses Adhesion of intestine (~1969) Essential (primary) hypertension (Unknown) History of pelvic fracture Hx of urethral stricture Myocardial infarction Overweight (BMI 25.0-29.9) Wrist injury (~1968) Surgical History Surgical History History of dilation of urethra History of esophagogastroduodenoscopy (EGD) Family History Family History Mother Diabetes mellitus Patient's mother is Family history of cardiovascular disease Father Patient's father is Social History Social History Smoking status: Former smoker Alcohol intake: current Drinks per week: 6 Alcohol use details: 5-6 beers/day Substance use: never Substance use type: does not use Additional living arrangements comments: lives with and a friend Gender identity (if verbalized by the patient): Male Spiritual care concerns: No Exam Narrative: GENERAL: Well-appearing, well-nourished, and in no acute distress. HEAD: Normoceph
[2021-09-10] MEDS: ASPIRIN 81 MG CHEWABLE TABLET 324 MG PO (22:29)
[2021-09-10 22:32] LABS: Basophils Percent Auto 0.5 % (0.2-1.2); Eosinophils Absolute Auto 0.1 K/mm3 (0-0.3); Eosinophils Percent Auto 1.5 % (0-4.4); Hematocrit 40.6 % (42.0-52.0); Hemoglobin 13.2 g/dL (14.0-18.0); Immature Granulocyte Absolute 0.01 K/mm3 (0.00-0.031); Immature Granulocyte Percent A 0.2 % (0-0.5); Lymphocytes Absolute Auto 1.32 K/mm3 (0.9-3.2); Lymphocytes Percent Auto 22.6 % (18.3-44.2); Mean Corpuscular HGB Conc 32.5 g/dl (32-36); Mean Corpuscular Hemoglobin 28.7 pg (26-34); Mean Corpuscular Volume 88.3 fl (80-100); Mean Platelet Volume 9.7 fl (7.4-10.4); Monocytes Absolute Auto 0.4 K/mm3 (0.1-0.6); Monocytes Percent Auto 7.5 % (2.6-8.5); Neutrophils Percent Auto 67.7 % (45.5-73.1); Platelet Count Result 202 k/mm3 (150-375); Red Cell Distribution Width 12.4 % (11.5-14.5); White Blood Count 5.9 K/mm3 (4.5-10.0)
[2021-09-10 22:43] LABS: INR 1.1; Prothrombin Time 13.8 Seconds (11.1-14.7)
[2021-09-10 22:44] LABS: Partial Thromboplastin Time 31.4 SECONDS (22.3-36.8)
[2021-09-10 22:45] LABS: Alanine Aminotransferase 35 U/L (4-50); Alkaline Phosphatase 82 U/L (38-126); Anion Gap 8 mmol/L (8-16); Aspartate Amino Transferase 37 U/L (17-59); Bilirubin,Total 0.4 mg/dL (0.2-1.3); Blood Urea Nitrogen 17 mg/dL (9-20); Calcium 8.9 mg/dL (8.4-10.2); Carbon Dioxide 28 mmol/L (22-30); Chloride 101 mmol/L (98-107); Estimated CRCL calculation 108 ml/min; Estimated Glomerular Filt Rate > 60; Glucose 115 mg/dL (65-110); Lipase 86 U/L (23-300); Potassium 4.2 mmol/L (3.4-5.0); Sodium 137 mmol/L (137-145)
[2021-09-10 22:56] LABS: Troponin I < 0.012 ng/mL (0.000-0.034)
[2021-09-11] VITALS (33 sets, daily range): BP systolic 103–170; BP diastolic 58–86; PULSE 47–85; RESP 10–20; TEMP 35.7–36.8; O2SAT 76–100; BMI 24.3
--- NOTE | 2021-09-11 00:24 | PM.IMHP ---
H&P: HPI History of Present Illness Date/Time: 09/11/21 00:24 Chief Complaint: Chest pain Narrative: This is a 71-year-old male with past medical history significant for spinal fusion surgery, bilateral neurogenic claudication, neurogenic bladder, hypertension, generalized anxiety. Patient comes in today due to chest pain, palpitations, anxiety, in preparation of his left heart catheterization there is supposed to take plays to more to as part of preop for his upcoming spinal surgery. At the time of my visit patient denied any fevers, rigors,chills, nausea ,vomiting, diarrhea, abdominal pain, cough, sputum production, fevers, rigors or chills ,no syncope ,no near syncope ,no dizziness ,no palpitations ,no PND,no orthopnea. Preliminary workup has been essentially nonrevealing. Patient Lexiscan a few months ago was positive for area of ischemia. Patient is going to undergo left heart catheterization in a.m.. Review of Systems Review of Systems: Chest pain, anxiety, nausea. Constitutional: Constitutional: Denies chills, Denies fatigue, Denies fever(s), Reports frequent falls, Denies malaise, Denies night sweats and Denies weakness Eyes: Eyes: Denies change in vision ENT: Denies dysphagia, Denies vertigo, Denies dizziness, Denies nasal congestion, Denies nasal discharge, Denies nasal obstruction and Denies odynophagia Cardiovascular: Cardiovascular: Reports chest pain, Denies pedal edema, Denies leg edema, Denies lightheadedness, Denies radiating jaw, neck or arm pain, Denies palpitations, Denies dyspnea on exertion and Denies orthopnea Respiratory: Respiratory: Denies cough and Denies dyspnea Gastrointestinal: Gastrointestinal: Denies abdominal pain, Denies dyspepsia, Denies heartburn, Denies diarrhea, Reports nausea and Reports vomiting Genitourinary: Genitourinary: Reports other (Neurogenic bladder) Musculoskeletal: Musculoskeletal: Denies arthralgias and Denies joint swelling Integumentary/Breasts: Skin/Breast: Denies rash Neurologic: Denies focal weakness, Reports radicular pain and Denies Sensory deficit (Neuro) Psychiatric: Psychiatric: Reports no additional psychiatric complaints and Reports as per HPI Endocrine: Endocrine: Denies cold intolerance, Denies heat intolerance, Denies polydipsia and Denies palpitations Hematologic/Lymphatic: Hematologic/Lymphatic: Reports no additional hematologic/lymphatic complaints and Reports as per HPI Allergic/Immunologic: Allergic/Immunologic: Reports no additional allergic/immunologic complaints and Reports as per HPI [facility] Past Medical History Medical History Actinic keratoses Adhesion of intestine (~1969) Essential (primary) hypertension (Unknown) History of pelvic fracture Hx of urethral stricture Myocardial infarction Overweight (BMI 25.0-29.9) Wrist injury (~1968) Surgical History Surgical History History of dilation of urethra History of esophagogastroduodenoscopy (EGD) Family History Family History Mother Diabetes mellitus Patient's mother is Family history of cardiovascular disease Father Patient's father is Social History Social History Smoking status: Former smoker Tobacco type: cigarettes Second hand tobacco smoke exposure: No Alcohol intake: current Drinks per week: 12 Alcohol use details: 5-6 beers/day Substance use: former Substance use type: does not use Living arrangements: with friend(s) Additional living arrangements comments: lives with and a friend Gender identity (if verbalized by the patient): Male Spiritual care concerns: No Meds Home Medications and Allergies Home Medications Medication Instructions Recorded Confirmed Type brimonidine-timolol [Combiga
[2021-09-11] MEDS: ACETAMINOPHEN 500 MG TABLET 1000 MG PO (00:49)
[2021-09-11 01:42] LABS: Troponin I < 0.012 ng/mL (0.000-0.034)
[2021-09-11] MEDS: traZODone HCL 50 MG TABLET PO ×2 (02:04→19:59)
--- NOTE | 2021-09-11 02:18 | ADMGEN ---
This patient, Joe Wellington, was admitted to IMU Room 201-01 on 09/11/2021 at 0105. Patient/family oriented to hospital policies and general routines including ID bracelet, bed and alarms, visiting hours, pain management, procedures, bathroom and other care routines, personal items, smoking policy, room service/diet, and visiting hours. Information on how to activate the Rapid Response Team has been discussed. Patient/Family are encouraged to report perceived risks to care and to ask questions if they do not understand what they are told or what they should do.
[2021-09-11] MEDS: LORazepam INJ (*CRX) 2 MG/ML VIAL 1 MG IV PUSH (02:40)
[2021-09-11] MEDS: ONDANSETRON INJ 4 MG/2 ML VIAL IV PUSH (02:40)
[2021-09-11 04:40] LABS: Troponin I < 0.012 ng/mL (0.000-0.034)
--- NOTE | 2021-09-11 09:22 | PM.CNCAR ---
Assessment and Plan Assessment and plan (1) Abnormal stress test: Code(s): R94.39 - Abnormal result of other cardiovascular function study Status: Acute Assessment and Plan: He does have an abnormal stress test. He has inferior inferolateral ischemia with infarction. This is a similar defect though that was seen prior to his last catheterization. He also has an an apical defect now. (2) CAD (coronary artery disease): Code(s): I25.10 - Atherosclerotic heart disease of [place] coronary artery without angina pectoris Status: Acute Assessment and Plan: Previous PCI to diagonal branch. Distal disease to that stent noted on previous catheterization. I did talk to him as well as patient's in the wishes to proceed with repeat angiogram to ensure there has been no changes before proceeding on to back surgery. (3) Essential (primary) hypertension: Onset Date: Unknown Code(s): I10 - Essential (primary) hypertension Status: Chronic Assessment and Plan: Continue meds (4) Weakness: Code(s): R53.1 - Weakness Status: Acute Assessment and Plan: ? Etiology. May need a muscle biopsy, neurology evaluation recommended History of Present Illness History of Present Illness Consult date/time: 09/11/21 09:22 Requesting physician: Kayla Levi APN-[facility] Consult reason: Other (Weakness palpitations anxiety) Reason For Visit: Weakness Narrative: Date of service 09/11/2021 Reason consultation: Abnormal stress test, weakness, anxiety Requesting provider: Kayla Levi History patient is 71-year-old male who does have a history of coronary disease. He is scheduled for a extensive spinal surgery. In the process workup is stress test was performed as an outpatient which showed large area of mixed inferior/inferolateral ischemia with infarction as well as anteroseptal ischemia. He is scheduled for coronary angiogram tomorrow but came to hospital for a multitude of vague symptoms including some palpitations,. jitteriness tremors. He did have a catheterization last fall which showed stenosis distal to the previously placed diagonal stent. This was treated medically as he was not ischemic in this area on his stress test at that time. He denies any chest pain, shortness of breath, syncope, presyncope, paroxysmal nocturnal dyspnea, orthopnea, edema palpitations Review of Systems Review of Systems: All systems reviewed & are unremarkable except as noted in HPI and below Constitutional: Constitutional: Reports weakness Eyes: Eyes: Denies blurry vision ENT: Reports Normal hearing present Cardiovascular: Cardiovascular: Denies chest pain Respiratory: Respiratory: Denies dyspnea Gastrointestinal: Gastrointestinal: Denies abdominal pain Genitourinary: Genitourinary: Denies dysuria Musculoskeletal: Musculoskeletal: Denies neck pain Integumentary/Breasts: Skin/Breast: Denies dry skin Neurologic: Reports Abnormal speech present and Denies headache(s) Comments: Slow speech. Somnolent Psychiatric: Psychiatric: Reports anxiety Endocrine: Endocrine: Denies excessive sweating Hematologic/Lymphatic: Hematologic/Lymphatic: Denies easy bleeding Allergic/Immunologic: Allergic/Immunologic: Denies GI upset with certain foods PMFSH Past Medical History Medical History Actinic keratoses Adhesion of intestine (~1969) Essential (primary) hypertension (Unknown) History of pelvic fracture Hx of urethral stricture Myocardial infarction Overweight (BMI 25.0-29.9) Wrist injury (~1968) Surgical History Surgical History History of dilation of urethra History of esophagogastroduodenoscopy (EGD) Family History Family History Mother Diabetes mellitus Patient's mother is Family history of
--- NOTE | 2021-09-11 11:26 | PM.IMPN ---
Subjective Date/time seen: 09/11/21 0800 This pt. was examined at the bedside in interval assessment. He is waiting to have a heart cath today based upon an abnormal Lexiscan that he had during a pre-op assessment late in August. He has a known history of CAD with PCI, but apparently there was a new lesion found on this Lexiscan. The patient was having a pre-op evaluation to have back surgery at [facility] for long-standing chronic back pain. He states that he received the news yesterday that the operation would have to be put off, and he became very worried and upset and felt so scared that he couldn't be at home. Objective Data Vital Signs Vital Signs: Vital Signs - 24 hr 09/10/21 21:48 09/10/21 22:04 09/10/21 22:20 Temperature 97.7 F Pulse Rate 59 L 59 L 60 Respiratory Rate 20 20 15 Blood Pressure 153/79 H 158/77 H Pulse Oximetry 98 98 94 09/10/21 22:43 09/10/21 22:57 09/10/21 23:00 Temperature Pulse Rate 61 62 58 L Respiratory Rate 17 17 16 Blood Pressure Pulse Oximetry 94 92 09/10/21 23:15 09/10/21 23:16 09/10/21 23:30 Temperature Pulse Rate 62 58 L 56 L Respiratory Rate 17 14 12 Blood Pressure 124/81 Pulse Oximetry 92 92 94 09/10/21 23:31 09/10/21 23:42 09/10/21 23:45 Temperature Pulse Rate 56 L 58 L 55 L Respiratory Rate 12 14 14 Blood Pressure 137/79 139/78 Pulse Oximetry 92 94 95 09/10/21 23:46 09/10/21 23:58 09/11/21 01:08 Temperature 97.8 F Pulse Rate 54 L 57 L 61 Respiratory Rate 12 16 Blood Pressure 137/82 139/78 Pulse Oximetry 95 95 09/11/21 01:15 09/11/21 04:00 09/11/21 05:12 Temperature 98.0 F 97.6 F Pulse Rate 55 L 55 L 55 L Respiratory Rate 16 18 Blood Pressure 162/77 H 103/63 Pulse Oximetry 98 92 09/11/21 06:00 09/11/21 08:00 09/11/21 10:00 Temperature 96.3 F L Pulse Rate 53 L 79 47 L Respiratory Rate 12 Blood Pressure 118/58 L Pulse Oximetry 95 Intake/Output Intake/Output: Intake & Output 09/08/21 09/09/21 09/10/21 09/11/21 23:59 23:59 23:59 23:59 Intake Total 120 Output Total 500 Balance -380 Meds/Results Medications: Active Medications Generic Name Dose Route Start Last Admin Trade Name Freq PRN Reason Stop Dose Admin Ondansetron HCl 4 mg 09/11/21 02:30 09/11/21 02:40 Ondansetron Inj 4 Mg/2 Ml Vial IV PUSH 4 mg Q6H PRN Administration Nausea And Vomiting Trazodone HCl 50 mg 09/11/21 00:26 09/11/21 02:04 Trazodone Hcl 50 Mg Tablet PO 50 mg HS PRN Administration Insomnia Radiology Results: ITS Impressions Chest X-Ray 09/10/21 22:46 IMPRESSION: 1: NO ACUTE CARDIOPULMONARY DISEASE. Labs Labs: Laboratory Results - last 24 hr 09/10/21 09/10/21 09/10/21 22:27 22:27 22:27 WBC 5.9 RBC 4.60 Hgb 13.2 L Hct 40.6 L MCV 88.3 MCH 28.7 MCHC 32.5 RDW 12.4 Plt Count 202 MPV 9.7 Immature Gran % (Auto) 0.2 Neut % (Auto) 67.7 Lymph % (Auto) 22.6 [place] % (Auto) 7.5 Eos % (Auto) 1.5 Baso % (Auto) 0.5 Lymph # (Auto) 1.32 [place] # (Auto) 0.4 Eos # (Auto) 0.1 Baso # (Auto) 0.0 Abs Immat Gran (auto) 0.01 Absolute Neuts (auto) 4.0 Absolute Nucleated RBC 0.0 Nucleated RBC % 0.0 PT 13.8 INR 1.1 APTT 31.4 Sodium 137 Potassium 4.2 Chloride 101 Carbon Dioxide 28 Anion Gap 8 BUN 17 Creatinine 0.60 L Estim Creat Clear Calc 108 Estimated GFR > 60 Glucose 115 H Calcium 8.9 Total Bilirubin 0.4 AST 37 ALT 35 Alkaline Phosphatase 82 Troponin I < 0.012 Total Protein 7.0 Albumin 4.0 Lipase 86 09/11/21 09/11/21 01:09 03:58 WBC RBC Hgb Hct MCV MCH MCHC RDW Plt Count MPV Immature Gran % (Auto) Neut % (Auto) Lymph % (Auto) [place] % (Auto) Eos % (Auto) Baso % (Auto) Lymph # (Auto) [place] # (Auto) Eos # (Auto) Baso # (Auto) Abs Immat Gran (auto) Absolute
--- NOTE | 2021-09-11 11:26 | PM.IMPN ---
Progress Note: A&P Additional Plan Assessment and plan (1) CAD (coronary artery disease): Onset Date: ~03/2020 Qualifiers: Coronary Disease-Associated Artery/Lesion type: [place] artery [place] vs. transplanted heart: [place] heart Associated angina: with other forms of angina Qualified Code(s): I25.118 - Atherosclerotic heart disease of [place] coronary artery with other forms of angina pectoris Code(s): I25.10 - Atherosclerotic heart disease of [place] coronary artery without angina pectoris Status: Resolved Assessment and Plan: - Waiting to go to aquatic laborer based upon abnormal findings on Lexiscan test. (2) Weakness: Code(s): R53.1 - Weakness Status: Acute Assessment and Plan: - Likely secondary to radiculopathy and spinal stenosis. - Neuro surgery planned for the near future (3) Spinal stenosis: Code(s): M48.00 - Spinal stenosis, site unspecified Status: Acute Assessment and Plan: - Supportive care - Awaiting surgery (4) Physical deconditioning: Code(s): R53.81 - Other malaise Status: Acute Assessment and Plan: - Patient with severe spinal stenosis (5) EtOH dependence: Code(s): F10.20 - Alcohol dependence, uncomplicated Status: Acute Assessment and Plan: - CIWA protocol as needed (6) Chronic back pain greater than 3 months duration: Onset Date: Unknown Code(s): M54.9 - Dorsalgia, unspecified; G89.29 - Other chronic pain Status: Chronic Assessment and Plan: - Tylenol p.r.n. (7) Nausea & vomiting: Qualifiers: Vomiting type: unspecified Vomiting Intractability: non-intractable Qualified Code(s): R11.2 - Nausea with vomiting, unspecified Code(s): R11.2 - Nausea with vomiting, unspecified Status: Acute Assessment and Plan: - Supportive care (8) Restrictive lung disease: Code(s): J98.4 - Other disorders of lung Status: Acute Assessment and Plan: - Appears to be stable Time Spent With Patient Time with patient: 15 - 25 minutes Subjective Date/time seen: 09/11/21 0900 This pt. was examined at the bedside in interval assessment. He is currently waiting to have his Angiography in the aquatic laborer. He denies any new complaints or concerns today. There is no current CP, dyspnea and no N/V/D. Review of Systems Review of Systems: A 12 point ROS has been performed and is otherwise negative except for what is documented in HPI. All systems reviewed & are unremarkable except as noted in HPI and below Exam Narrative: Narrative: Patient is laying in a stretcher Const: General: cooperative, comfortable, no acute distress, well developed, alert, awake and other (Anxious) Nutritional Appearance: thin Orientation/consciousness: patient oriented x3 HENMT: Head: normal to inspection, normocephalic and atraumatic Ears: hearing grossly normal bilaterally General nose exam: Normal external nose present Face and sinus: normal facial exam Mouth: Yes Normal oral and palatal mucosa present Eyes: General: appearance normal, both eyes and all related structures Alignment and Position: alignment normal Sclera: sclerae normal Pupils: Equal, round and reactive pupils present EOM: EOMs intact bilaterally Neck: Neck: normal visual inspection, full ROM, no lymphadenopathy, supple and no JVD Thyroid: thyroid normal Lymphatic: no lymphadenopathy noted Resp: Effort & Inspection: normal respiratory effort, able to speak in complete sentences and no cough Auscultation: clear to auscultation bilaterally, no crackles, no rales, no rhonchi and no wheezes Cardio: Jugular venous distension: no JVD Rate: regular rate Rhythm: regular rhythm Heart sounds: S1 normal heart sound present and S2 normal heart sound present GI: Inspection: normal to inspection GI Palp: Yes Soft to palpation, No Tenderness to palpation present (GI), No Guarding due to palpation present
--- NOTE | 2021-09-11 11:59 | WPDMODSED ---
Moderate Sedation Note-Pt Data Patient Data Diagnosis: Coronary artery disease with previous stenting of the LAD diagonal upcoming need for noncardiac surgery abnormal stress test Present Complaint: significant procedural anxiety Procedure to be performed/Plan: left heart catheterization Allergies Allergy/AdvReac Type Severity Reaction Status Date / Time tramadol Allergy Mild SEIZURE Verified 09/10/21 21:51 Home Medications Medication Instructions Recorded Confirmed Type brimonidine-timolol [Combigan] 1 drp OPHTHALMIC (EYE) BID 03/12/20 09/11/21 History pregabalin [Lyrica] 150 mg PO HS 03/12/20 09/11/21 History aspirin [Children's Aspirin] 81 mg PO DAILY@0800 #30 tablet 03/14/20 09/11/21 Rx atorvastatin 40 mg PO DAILY #30 tablet 03/14/20 09/11/21 Rx Hydromorphone Pain Pump 3.897 mg IMPLANT DAILY 04/30/20 09/11/21 History ascorbic acid (vitamin C) [Vitamin 500 mg PO DAILY 04/30/20 09/11/21 History C] cholecalciferol (vitamin D3) 25 mcg PO DAILY 04/30/20 09/11/21 History [Vitamin D3] magnesium 500 mg PO DAILY 04/30/20 09/11/21 History vitamin B complex 1 cap PO DAILY 04/30/20 09/11/21 History vitamin E 1 tablet PO DAILY 04/30/20 09/11/21 History albuterol sulfate 2 puff INHALATION QID PRN #8 gm 07/29/20 09/11/21 Rx clopidogrel 75 mg tablet 75 mg PO DAILY 04/10/21 09/11/21 History duloxetine 60 mg capsule,delayed 60 mg PO DAILY #90 cap 04/13/21 09/11/21 Rx release oxybutynin chloride 5 mg tablet 5 mg PO TID PRN #30 tablet 07/02/21 09/11/21 Rx diazepam 5 mg tablet 5 mg PO Q6H PRN #30 tablet 07/28/21 09/11/21 Rx cyanocobalamin (vitamin B-12) 1,000 mcg PO DAILY 08/12/21 09/11/21 History 1,000 mcg capsule famotidine 20 mg tablet 20 mg PO DAILY 08/12/21 09/11/21 History ferrous sulfate 325 mg (65 mg 325 mg PO DAILY 08/12/21 09/11/21 History iron) tablet thiamine mononitrate (vit B1) 100 100 mg PO DAILY 08/12/21 09/11/21 History mg tablet alprazolam 0.25 mg tablet 0.25 mg PO TID PRN #30 tablet 09/02/21 09/11/21 Rx lisinopril 10 mg tablet 10 mg PO HS #90 tablet 09/07/21 09/11/21 Rx Current Medications: Active Medications Ondansetron HCl (Ondansetron Inj 4 Mg/2 Ml Vial) 4 mg IV PUSH Q6H PRN PRN Reason: Nausea And Vomiting Last Admin: 09/11/21 02:40 Dose: 4 mg Documented by: Trazodone HCl (Trazodone Hcl 50 Mg Tablet) 50 mg PO HS PRN PRN Reason: Insomnia Last Admin: 09/11/21 02:04 Dose: 50 mg Documented by: Sedation/Anesthesia: No previous sedation/anesthesia problems (including family history). [facility] Past Medical History Medical History Actinic keratoses Adhesion of intestine (~1969) Essential (primary) hypertension (Unknown) History of pelvic fracture Hx of urethral stricture Myocardial infarction Overweight (BMI 25.0-29.9) Wrist injury (~1968) Surgical History Surgical History History of dilation of urethra History of esophagogastroduodenoscopy (EGD) Family History Family History Mother Diabetes mellitus Patient's mother is Family history of cardiovascular disease Father Patient's father is Social History Social History Smoking status: Former smoker Tobacco type: cigarettes Second hand tobacco smoke exposure: No Alcohol intake: current Drinks per week: 12 Alcohol use details: 5-6 beers/day Substance use: former Substance use type: does not use Living arrangements: with friend(s) Additional living arrangements comments: lives with and a friend Gender identity (if verbalized by the patient): Male Spiritual care concerns: No Mod Sed Physical Exam Physical Exam Pre Procedural Exam: Normal: Appearance, Neck, Throat, Airway, Lungs, Heart Size, Heart Rate, Heart Rhythm, Neuro Exam and Extremiti
--- NOTE | 2021-09-11 12:57 | PC.NURSE ---
Patient transported to Cardiac solar lab technician at 1255 by solar lab technician team.
--- NOTE | 2021-09-11 14:26 | ECG_ITS ---
Measurements Intervals [place] Rate: 68 P: 46 PA: 199 QRS: -2 QRSD: 89 T: -15 QT: 390 QTc: 415 Interpretive Statements SINUS RHYTHM COMPARED TO ECG 09/10/2021 22:05:47 NO SIGNIFICANT CHANGES Electronically Signed On 09-11-2021 16:01:39 PROGRAMMING ENGINEER by Mike Alfonso M.D.
--- NOTE | 2021-09-11 14:30 | WPDCARDPROC ---
Cardiac Cath Procedure Note Date of procedure:: 09/11/21 Performing physician:: Mike Alfonso MD Indication:: coronary artery disease with previous stenting to 1st diagonal atypical chest pain abnormal stress test done prior to noncardiac surgery Brief clinical history:: this is a 71-year-old patient with previous PCI with stenting to the diagonal branch of the LAD several years ago. He has a variety of complaints but no typical exertional angina is a going on. He is now anticipating lumbar spine surgery and a nuclear stress test was done which is interpreted as an inferior ischemic defect. For this reason follow-up angiogram was recommended. Procedure Procedure performed:: Left ventriculogram coronary angiogram PCI(TREVIN) to proximal LAD and PTCA to diagonal Sedation/Medication given:: Versed 4 mg case start time 1:15 p.m. case end time 2:18 p.m. sedation provided by Cleveland Gimenez RN, trained observer Access site:: right femoral artery Estimated blood loss:: 30 cc Procedure note:: patient was brought to the cardiac catheterization lab in the postabsorptive state. The right femoral triangle was prepared and draped in the normal fashion. Anesthesia was provided with 1% lidocaine infiltrated locally. Using the modified Seldinger technique a 5 [place] sheath was placed into the femoral artery and left heart catheterization was carried out. A 5 [place] angled pigtail catheter was used to measure left-sided hemodynamics and injected LV g in the our AO projection. Following this I used a standard 5 [place] FL4 catheter to engage and inject the left coronary artery and then a 5 [place] JR4 catheter to engage and inject the right coronary artery. The cineangiograms were then reviewed and PCI of the LAD was recommended and carried out as detailed below. Prior to PCI 5 [place] sheath was exchanged over a guidewire for a 6 [place] and the patient was then systemically anticoagulated with a bolus infusion of Angiomax. Patient received 325 mg of aspirin and 600 mg of clopidogrel prior to PCI. Following completion of intervention the sheath was sutured into position the patient was taken to the holding area for post PCI recovery and sheath removal. Procedure was uncomplicated there were no signs of groin hematoma upon leaving the blood bank laboratory technician. Findings:: Hemodynamics: Central aortic pressure is 166/80 left ventricle 166/0 end-diastolic 15. There is no gradient on pullback across the aortic valve. Left ventricle: The LV is normal in size all segments contract appropriately the global ejection fraction is visually estimated to be 65%. The left main coronary artery is nicely patent and medium in caliber the left anterior descending is a medium caliber vessel extending down to and around the apex. There is a previously deployed stent in the 1st diagonal branch which is nicely patent at the distal margin of the stent there is about 70-80% stenosis. Angiographically this is unchanged from its appearance on angiogram last year. The LAD itself has significant stenosis in the proximal segment which starts prior to the diagonal branch and is relatively mild just distal to that diagonal there is an eccentric stenosis of 80-90%. In the distal portion of the LAD there is a mild segment of 40-50% stenosis. The circumflex is a medium caliber artery giving rise to the marginal branches the circumflex is free of significant disease. The right coronary artery is dominant to the posterior circulation. There is minimal plaquing in the 2nd portion trunk of the RCA but no significant lesions are seen. Intervention: The left coronary was engaged using the 6 [place] CLS 3.5 guiding catheter. I used a 0.014 BMW guidewire to wire the LAD down to the apex. The stenosis described above was then pre-dilated using a 3 x 20 mm emerge balloon following which it was stented by a 3 x 22 mm Orsiro deployed at 12 atmospheres. Doing this the LAD is widely pat
[2021-09-11] MEDS: SODIUM CHLORIDE 0.9% IV 1,000 ML 125 ML IV CONT (15:37)
--- NOTE | 2021-09-11 17:11 | PC.NURSE ---
Patient back in room at 1630 from component lab tech, report received at bedside. clinical laboratory manager team at bedside with patient.
[2021-09-11] MEDS: ACETAMINOPHEN 325 MG TABLET 650 MG PO (19:01)
[2021-09-11] MEDS: ALPRAZolam (*CRX) 0.25 MG TABLET PO (19:02)
[2021-09-11] MEDS: diazePAM (*CRX) 5 MG TABLET PO (21:29)
[2021-09-11] MEDS: PREGABALIN (*CRX) 75 MG CAPSULE 150 MG PO (21:29)
[2021-09-11] MEDS: lisinopriL 10 MG TABLET PO (21:29)
[2021-09-11] MEDS: BRIMONIDINE TARTRATE 0.2% OP SOLN 5 ML BTL 1 DROP EACH EYE (21:30)
[2021-09-11] MEDS: TIMOLOL MALEATE 0.5% OP SOLN 5 ML BOTTLE 1 DROP EACH EYE (21:30)
[2021-09-12] VITALS (9 sets, daily range): BP systolic 104–147; BP diastolic 65–79; PULSE 48–88; RESP 17–20; TEMP 35.6–37.1; O2SAT 91–100
[2021-09-12 04:44] LABS: Basophils Percent Auto 0.4 % (0.2-1.2); Eosinophils Absolute Auto 0.1 K/mm3 (0-0.3); Hematocrit 37.7 % (42.0-52.0); Hemoglobin 12.3 g/dL (14.0-18.0); Lymphocytes Absolute Auto 1.13 K/mm3 (0.9-3.2); Lymphocytes Percent Auto 22.7 % (18.3-44.2); Mean Corpuscular HGB Conc 32.6 g/dl (32-36); Mean Corpuscular Hemoglobin 28.1 pg (26-34); Mean Corpuscular Volume 86.1 fl (80-100); Mean Platelet Volume 9.9 fl (7.4-10.4); Monocytes Absolute Auto 0.4 K/mm3 (0.1-0.6); Neutrophils Absolute Auto 3.4 K/mm3 (1.3-6.7); Neutrophils Percent Auto 67.9 % (45.5-73.1); Platelet Count Result 191 k/mm3 (150-375); Red Blood Count 4.38 M/mm3 (4.6-6.20); Red Cell Distribution Width 12.2 % (11.5-14.5)
[2021-09-12 04:54] LABS: Alanine Aminotransferase 27 U/L (4-50); Albumin Level 3.3 g/dL (3.5-5.1); Alkaline Phosphatase 77 U/L (38-126); Anion Gap -1 mmol/L (8-16); Aspartate Amino Transferase 28 U/L (17-59); Bilirubin,Total 0.5 mg/dL (0.2-1.3); Blood Urea Nitrogen 14 mg/dL (9-20); Calcium 8.4 mg/dL (8.4-10.2); Carbon Dioxide 32 mmol/L (22-30); Chloride 103 mmol/L (98-107); Estimated CRCL calculation 94 ml/min; Estimated Glomerular Filt Rate > 60; Glucose 102 mg/dL (65-110); Magnesium 2.1 mg/dL (1.6-2.3); Potassium 3.7 mmol/L (3.4-5.0); Sodium 134 mmol/L (137-145)
--- NOTE | 2021-09-12 05:11 | ECG_ITS ---
Measurements Intervals [place] Rate: 46 P: 35 MN: 214 QRS: 8 QRSD: 95 T: -1 QT: 491 QTc: 433 Interpretive Statements SINUS BRADYCARDIA WITH FIRST DEGREE AV BLOCK NONSPECIFIC T-WAVE ABNORMALITY BORDERLINE ECG COMPARED TO ECG 09/11/2021 14:40:54 SINUS BRADYCARDIA NOW PRESENT FIRST DEGREE AV BLOCK NOW PRESENT T-WAVE ABNORMALITY NOW PRESENT Electronically Signed On 09-12-2021 14:29:44 ADMINISTRATIVE SUPPORT TECHNICIAN by Jorge Cordon M.D.
[2021-09-12] MEDS: TIMOLOL MALEATE 0.5% OP SOLN 5 ML BOTTLE 1 DROP EACH EYE ×2 (09:35→20:55)
[2021-09-12] MEDS: ASCORBIC ACID 500 MG TABLET PO (09:35)
[2021-09-12] MEDS: MAGNESIUM OXIDE 400 MG TABLET PO (09:36)
[2021-09-12] MEDS: CHOLECALCIFEROL 1,000 UNITS TABLET 1000 UNITS PO (09:36)
[2021-09-12] MEDS: FAMOTIDINE 20 MG TABLET PO (09:36)
[2021-09-12] MEDS: FERROUS SULFATE 324 MG TABLET PO (09:36)
[2021-09-12] MEDS: ATORVASTATIN 40 MG TABLET PO (09:36)
[2021-09-12] MEDS: DULoxetine HCL 60 MG CAPSULE.DR PO (09:36)
[2021-09-12] MEDS: OXYBUTYNIN CHLORIDE 5 MG TABLET PO (09:36)
[2021-09-12] MEDS: VITAMIN B COMPLEX CAPSULE 1 CAP PO (09:36)
[2021-09-12] MEDS: ASPIRIN 81 MG CHEWABLE TABLET PO (09:36)
[2021-09-12] MEDS: CYANOCOBALAMIN 1,000 MCG TABLET 1000 MCG PO (09:36)
[2021-09-12] MEDS: CLOPIDOGREL BISULFATE 75 MG TABLET PO (09:36)
[2021-09-12] MEDS: THIAMINE HCL 100 MG TABLET PO (09:36)
[2021-09-12] MEDS: VITAMIN E 1,000 UNIT CAPSULE 1000 UNIT PO (09:36)
[2021-09-12] MEDS: BRIMONIDINE TARTRATE 0.2% OP SOLN 5 ML BTL 1 DROP EACH EYE ×2 (09:37→21:22)
--- NOTE | 2021-09-12 11:28 | PM.PNCARD ---
Progress Note: A&P Assessment and Plan (1) Abnormal stress test: Code(s): R94.39 - Abnormal result of other cardiovascular function study Status: Acute Assessment and Plan: High-grade LAD stenosis 80-90% status post successful drug-eluting stent implantation without complication. Post cardiac catheterization precautions reviewed with patient his at length. (2) CAD (coronary artery disease): Code(s): I25.10 - Atherosclerotic heart disease of [place] coronary artery without angina pectoris Status: Acute Assessment and Plan: Previous PCI to diagonal branch. 3.0 x 22 mm drug-eluting stent to LAD without complication. Compliance with dual antiplatelet therapy without interruptions for least 12 months. Aspirin indefinitely. Statin therapy. Continue lisinopril up beta-marcy due to bradycardia. Must remain compliant with all medications as prescribed. Patient and his verbalized understanding, were grateful for my discussion and recommendations. (3) Essential (primary) hypertension: Onset Date: Unknown Code(s): I10 - Essential (primary) hypertension Status: Chronic Assessment and Plan: Continue meds stable. (4) Weakness: Code(s): R53.1 - Weakness Status: Acute Assessment and Plan: No acute issues but uncertain Etiology. May need a muscle biopsy, neurology evaluation recommended defer to primary service and as outpatient workup as appropriate. PT OT. Discussed difficulties that may arise with ambulation post cardiac catheterization given restrictions to reduce bleeding risk. Subjective Date/time seen: Date of service: 09/12/21 11:28 Follow-up for abnormal stress test, CAD status post stent implantation LAD Doing well. Was restless overnight he states perhaps he was anxious. No chest pain, shortness of breath or palpitations. No right groin pain and access site. at bedside. Discussed at length post catheterization precautions, plan of care, medications, restrictions. All questions answered to their satisfaction. Review of Systems Review of Systems: All systems reviewed & are unremarkable except as noted in HPI and below Constitutional: Constitutional: Reports as per HPI, Denies excessive sweating, Denies headache(s) and Reports weakness Eyes: Eyes: Reports as per HPI and Denies blurry vision ENT: Reports as per HPI, Reports Normal hearing present, Denies headache(s) and Denies neck pain Cardiovascular: Cardiovascular: Reports as per HPI, Denies chest pain and Denies dyspnea Respiratory: Respiratory: Reports as per HPI and Denies dyspnea Gastrointestinal: Gastrointestinal: Reports as per HPI and Denies abdominal pain Genitourinary: Genitourinary: Reports as per HPI and Denies dysuria Musculoskeletal: Musculoskeletal: Reports as per HPI and Denies neck pain Integumentary/Breasts: Skin/Breast: Reports as per HPI and Denies dry skin Neurologic: Reports as per HPI, Reports Normal hearing present, Reports Abnormal speech present, Denies headache(s) and Reports weakness Psychiatric: Psychiatric: Reports as per HPI and Reports anxiety Endocrine: Endocrine: Reports as per HPI and Denies excessive sweating Hematologic/Lymphatic: Hematologic/Lymphatic: Reports as per HPI and Denies easy bleeding Allergic/Immunologic: Allergic/Immunologic: Reports as per HPI and Denies GI upset with certain foods Exam Narrative: Appears stated age Const: General: no acute distress HENMT: General nose exam: Normal nares present Eyes: Sclera: sclerae normal Neck: Neck: supple and no JVD Chest: Other: No reproducible chest wall pain to palpation Resp: Auscultation: clear to auscultation bilaterally Cardio: Rate: regular rate Rhythm: regular rhythm GI: Auscultation: normal bowel sounds Skin: General skin exam: normal color Neuro: Cranial nerves: Yes Normal hearing present Cognition (Neuro): abnormal cognition Speech: Abnorm
--- NOTE | 2021-09-12 11:55 | PM.DS ---
DS: Admitting Diagnosis Discharge Date 09/12/2021 Admitting Diagnosis 1) CAD 2) Weakness 3) Spinal Stenosis 4) Physical Deconditioning 5) ETOH Dependence 6) Chronic Back Pain >3 mos 7) Nausea and Vomiting 8) Restrictive Lung Disease DS: Discharge Diagnosis Discharge Diagnosis (1) CAD (coronary artery disease): Onset Date: ~03/2020 Qualifiers: Coronary Disease-Associated Artery/Lesion type: [place] artery [place] vs. transplanted heart: [place] heart Associated angina: with other forms of angina Qualified Code(s): I25.118 - Atherosclerotic heart disease of [place] coronary artery with other forms of angina pectoris Code(s): I25.10 - Atherosclerotic heart disease of [place] coronary artery without angina pectoris Status: Resolved Assessment and Plan: - Pt. had LHC on 09/11/2021 for his history of CAD with abnormal Lexiscan that was performed prior to an elective back surgery. - TREVIN was placed in the distal LAD without complication. - Compliance with DAPT for 12 months, ASA indefinitely, and Statin therapy. Continue Lisinopril, and hold off on BB due to bradycardia. Both pt. and were advised to be compliant with medication regimen. (2) Weakness: Code(s): R53.1 - Weakness Status: Acute Assessment and Plan: - Likely secondary to radiculopathy and spinal stenosis. - Neuro surgery planned for the near future (3) Spinal stenosis: Code(s): M48.00 - Spinal stenosis, site unspecified Status: Acute Assessment and Plan: - Supportive care - Awaiting surgery (4) Physical deconditioning: Code(s): R53.81 - Other malaise Status: Acute Assessment and Plan: - Patient with severe spinal stenosis (5) EtOH dependence: Code(s): F10.20 - Alcohol dependence, uncomplicated Status: Acute Assessment and Plan: - CIWA protocol as needed (6) Chronic back pain greater than 3 months duration: Onset Date: Unknown Code(s): M54.9 - Dorsalgia, unspecified; G89.29 - Other chronic pain Status: Chronic Assessment and Plan: - Tylenol p.r.n. (7) Nausea & vomiting: Qualifiers: Vomiting type: unspecified Vomiting Intractability: non-intractable Qualified Code(s): R11.2 - Nausea with vomiting, unspecified Code(s): R11.2 - Nausea with vomiting, unspecified Status: Acute Assessment and Plan: - Supportive care (8) Restrictive lung disease: Code(s): J98.4 - Other disorders of lung Status: Acute Assessment and Plan: - Appears to be stable DS: Summary Hospital Course Hospital Course: This 71 year old male patient with significant PMH of spinal fusion surgery, bilateral neurogenic claudication, neurogenic bladder, HTN, and generalized anxiety presented to the ER with complaints of chest pain. The pt had received news that the scheduled procedure for his spine was canceled due to an abnormal Lexiscan suggesting that he had new areas of ischemic changes. After receiving news that he was not going to be able to have his procedure he became fearful to stay at home, and presented to the ER instead, complaining of CP. Pt.'s initial workup was unremarkable. He was admitted to the hospital and Cardiology took him to the OR yesterday and stented the distal LAD. His post-procedural course has been benign. He was given specific follow up instructions and directions by Cardiology as well as advised specifically of his medication regimen that he must follow to prevent further Cardiac injury. Pt. is stable for discharge at this time. Status at Discharge Overall status at discharge: patient is back to baseline Time Spent with Patient Time attestation: Total time spent providing and/or coordinating discharge services: 35 minutes Time spent: Less than 30 minutes Exam Narrative: Const: General: cooperative, comfortable, no acute distress, well developed, alert, awake and other (Anxious)
--- NOTE | 2021-09-12 18:23 | PC.NURSE ---
This patient, Joe Wellington, was received from [ IMU] on 09/12/21 at 170. Patient/family oriented to unit policies and routines
[2021-09-12] MEDS: lisinopriL 10 MG TABLET PO (20:58)
[2021-09-12] MEDS: PREGABALIN (*CRX) 75 MG CAPSULE 150 MG PO (20:59)
[2021-09-12] MEDS: traZODone HCL 50 MG TABLET PO (21:00)
[2021-09-12] MEDS: diazePAM (*CRX) 5 MG TABLET PO (22:37)
[2021-09-13] MEDS: ACETAMINOPHEN 325 MG TABLET 650 MG PO ×2 (03:38→23:11)
[2021-09-13 03:56] VITALS: BP 116/73; PULSE 64; RESP 16; TEMP 37.1; O2SAT 93
[2021-09-13 07:03] LABS: Basophils Percent Auto 0.4 % (0.2-1.2); Eosinophils Absolute Auto 0.1 K/mm3 (0-0.3); Eosinophils Percent Auto 1.5 % (0-4.4); Hematocrit 37.7 % (42.0-52.0); Hemoglobin 12.6 g/dL (14.0-18.0); Immature Granulocyte Absolute 0.01 K/mm3 (0.00-0.031); Immature Granulocyte Percent A 0.2 % (0-0.5); Lymphocytes Percent Auto 26.8 % (18.3-44.2); Mean Corpuscular HGB Conc 33.4 g/dl (32-36); Mean Corpuscular Hemoglobin 28.7 pg (26-34); Mean Corpuscular Volume 85.9 fl (80-100); Mean Platelet Volume 9.5 fl (7.4-10.4); Monocytes Absolute Auto 0.5 K/mm3 (0.1-0.6); Monocytes Percent Auto 8.6 % (2.6-8.5); Neutrophils Absolute Auto 3.3 K/mm3 (1.3-6.7); Neutrophils Percent Auto 62.5 % (45.5-73.1); Platelet Count Result 177 k/mm3 (150-375); Red Blood Count 4.39 M/mm3 (4.6-6.20); Red Cell Distribution Width 12.2 % (11.5-14.5); White Blood Count 5.2 K/mm3 (4.5-10.0)
[2021-09-13 07:13] LABS: Alanine Aminotransferase 25 U/L (4-50); Albumin Level 3.4 g/dL (3.5-5.1); Alkaline Phosphatase 73 U/L (38-126); Anion Gap 5 mmol/L (8-16); Aspartate Amino Transferase 30 U/L (17-59); Bilirubin,Total 0.4 mg/dL (0.2-1.3); Blood Urea Nitrogen 15 mg/dL (9-20); Calcium 8.5 mg/dL (8.4-10.2); Carbon Dioxide 29 mmol/L (22-30); Chloride 103 mmol/L (98-107); Estimated CRCL calculation 108 ml/min; Estimated Glomerular Filt Rate > 60; Glucose 108 mg/dL (65-110); Potassium 3.9 mmol/L (3.4-5.0); Sodium 137 mmol/L (137-145)
[2021-09-13] MEDS: FERROUS SULFATE 324 MG TABLET PO (08:23)
[2021-09-13] MEDS: ASPIRIN 81 MG CHEWABLE TABLET PO (08:23)
[2021-09-13] MEDS: FAMOTIDINE 20 MG TABLET PO (08:23)
[2021-09-13] MEDS: ASCORBIC ACID 500 MG TABLET PO (08:23)
[2021-09-13] MEDS: DULoxetine HCL 60 MG CAPSULE.DR PO (08:23)
[2021-09-13] MEDS: THIAMINE HCL 100 MG TABLET PO (08:23)
[2021-09-13] MEDS: VITAMIN E 1,000 UNIT CAPSULE 1000 UNIT PO (08:23)
[2021-09-13] MEDS: CLOPIDOGREL BISULFATE 75 MG TABLET PO (08:23)
[2021-09-13] MEDS: VITAMIN B COMPLEX CAPSULE 1 CAP PO (08:23)
[2021-09-13] MEDS: CYANOCOBALAMIN 1,000 MCG TABLET 1000 MCG PO (08:23)
[2021-09-13] MEDS: CHOLECALCIFEROL 1,000 UNITS TABLET 1000 UNITS PO (08:23)
[2021-09-13] MEDS: MAGNESIUM OXIDE 400 MG TABLET PO (08:23)
[2021-09-13] MEDS: TIMOLOL MALEATE 0.5% OP SOLN 5 ML BOTTLE 1 DROP EACH EYE ×2 (08:24→20:50)
[2021-09-13] MEDS: BRIMONIDINE TARTRATE 0.2% OP SOLN 5 ML BTL 1 DROP EACH EYE ×2 (08:24→20:50)
[2021-09-13] MEDS: ATORVASTATIN 40 MG TABLET PO (08:25)
--- NOTE | 2021-09-13 09:53 | PM.PNCARD ---
Progress Note: A&P Assessment and Plan (1) CAD (coronary artery disease): Code(s): I25.10 - Atherosclerotic heart disease of [place] coronary artery without angina pectoris Status: Acute Assessment and Plan: Previous PCI to diagonal branch. 3.0 x 22 mm drug-eluting stent to LAD without complication. Compliance with dual antiplatelet therapy without interruptions ideally for least 12 months. At a minimum, not recommend interruption for least 6 months unless absolutely necessary. Aspirin indefinitely. Statin therapy. Continue lisinopril up beta-marcy due to bradycardia. Must remain compliant with all medications as prescribed. Patient doing well from cardiac perspective. Cardiology will sign off. Disposition per hospitalist service. (2) Abnormal stress test: Code(s): R94.39 - Abnormal result of other cardiovascular function study Status: Acute Assessment and Plan: High-grade LAD stenosis 80-90% status post successful drug-eluting stent implantation without complication. Post cardiac catheterization precautions. Reviewed once again with the patient. Continue dual antiplatelet therapy. Monitor for bleeding. (3) Weakness: Code(s): R53.1 - Weakness Status: Acute Assessment and Plan: Continue physical therapy evaluation. Rehabilitation is appropriate. Defer to PT OT and primary service given patient's unique social situation and support needs. Continue PT/OT. Once again, in response to questions from the patient we discussed difficulties that may arise with ambulation post cardiac catheterization given restrictions to reduce bleeding risk but that ID state passes this risk statistically lessens of the importance of ongoing physical therapy is paramount. (4) Essential (primary) hypertension: Onset Date: Unknown Code(s): I10 - Essential (primary) hypertension Status: Chronic Assessment and Plan: Continue meds, stable. Subjective Date/time seen: Date of service: 09/13/21 09:53 Follow-up for CAD status post PCI/stent to LAD No new issues overnight. Feels better in general. Physical therapy working with the patient. No chest pain, shortness of breath or palpitations. No dizziness. No bleeding. No pain at right groin arterial access site. Review of Systems Review of Systems: All systems reviewed & are unremarkable except as noted in HPI and below Constitutional: Constitutional: Reports as per HPI, Denies excessive sweating, Denies headache(s) and Reports weakness Eyes: Eyes: Reports as per HPI and Denies blurry vision ENT: Reports as per HPI, Reports Normal hearing present, Denies headache(s) and Denies neck pain Cardiovascular: Cardiovascular: Reports as per HPI, Denies chest pain and Denies dyspnea Respiratory: Respiratory: Reports as per HPI and Denies dyspnea Gastrointestinal: Gastrointestinal: Reports as per HPI and Denies abdominal pain Genitourinary: Genitourinary: Reports as per HPI and Denies dysuria Musculoskeletal: Musculoskeletal: Reports as per HPI and Denies neck pain Integumentary/Breasts: Skin/Breast: Reports as per HPI and Denies dry skin Neurologic: Reports as per HPI, Reports Normal hearing present, Reports Abnormal speech present, Denies headache(s) and Reports weakness Psychiatric: Psychiatric: Reports as per HPI and Reports anxiety Endocrine: Endocrine: Reports as per HPI and Denies excessive sweating Hematologic/Lymphatic: Hematologic/Lymphatic: Reports as per HPI and Denies easy bleeding Allergic/Immunologic: Allergic/Immunologic: Reports as per HPI and Denies GI upset with certain foods Exam Narrative: Appears stated age, sitting upright in chair, alert and oriented x3 color improved comfortable more responsive and interactive. Const: General: no acute distress HENMT: General nose exam: Normal nares present Eyes: Sclera: sclerae normal Neck: Neck: supple and no JVD Chest: Other: No reproducible
--- NOTE | 2021-09-13 12:55 | PM.IMPN ---
Progress Note: A&P Additional Plan Discharge Diagnosis (1) CAD (coronary artery disease): Onset Date: ~03/2020 Qualifiers: Coronary Disease-Associated Artery/Lesion type: [place] artery [place] vs. transplanted heart: [place] heart Associated angina: with other forms of angina Qualified Code(s): I25.118 - Atherosclerotic heart disease of [place] coronary artery with other forms of angina pectoris Code(s): I25.10 - Atherosclerotic heart disease of [place] coronary artery without angina pectoris Status: Resolved Assessment and Plan: - Pt. had LHC on 09/11/2021 for his history of CAD with abnormal Lexiscan that was performed prior to an elective back surgery. - TREVIN was placed in the distal LAD without complication. - Compliance with DAPT for 12 months, ASA indefinitely, and Statin therapy. Continue Lisinopril, and hold off on BB due to bradycardia. Both pt. and were advised to be compliant with medication regimen. - Cardiology has signed off of the case on 09/13/2021. (2) Weakness: Code(s): R53.1 - Weakness Status: Acute Assessment and Plan: - This is an acute on chronic issue with the most recent acuteness being due most likely to cardiac demand. Pt. has shown that he can and will work hard with PT and he is going to have short term rehab for endurance strengthening prior to returning home. - His Neurosurgery will now be put off for 6 months-12 months due to the fact that he is on ASA indefinitely and Plavix for at least a year. - He will work in the meantime to regain his strength in therapy as a preparation for any future Neurosurgery. (3) Spinal stenosis: Code(s): M48.00 - Spinal stenosis, site unspecified Status: Acute Assessment and Plan: - Supportive care - Awaiting Neurosurgery intervention. (4) Physical deconditioning: Code(s): R53.81 - Other malaise Status: Acute Assessment and Plan: - Patient with severe spinal stenosis - Acute on chronic issue due to the patient's CAD status. (5) EtOH dependence: Code(s): F10.20 - Alcohol dependence, uncomplicated Status: Acute Assessment and Plan: - CIWA protocol as needed (6) Chronic back pain greater than 3 months duration: Onset Date: Unknown Code(s): M54.9 - Dorsalgia, unspecified; G89.29 - Other chronic pain Status: Chronic Assessment and Plan: - Tylenol p.r.n. (7) Nausea & vomiting: Qualifiers: Vomiting type: unspecified Vomiting Intractability: non-intractable Qualified Code(s): R11.2 - Nausea with vomiting, unspecified Code(s): R11.2 - Nausea with vomiting, unspecified Status: Acute Assessment and Plan: - Supportive care (8) Restrictive lung disease: Code(s): J98.4 - Other disorders of lung Status: Acute Assessment and Plan: - Appears to be stable Time Spent With Patient Time with patient: 25 - 35 minutes Subjective Date/time seen: 09/13/21 0422 This pt. was examined at the bedside today in an interval assessment. He is sitting up in the chair at the bedside eating breakfast as requested from this provider. He appears to have increased strength today and does not appear as weak has he has previously, but he reports that he does still feel weak. He states that his pain in his back is tolerable and he denies any CP, dyspnea, N/V/D. He is in good spirits. OT evaluated him and recommends rehab, as does PT. Pt. was able to ambulate with a walker and one assist across the room and back with significant loss of endurance. Placement that is available for today has been found, however, the patient requests to wait until morning. I am agreeable to this plan of care. Both the patient and his state that she will drive him there tomorrow at 1030. I still plan on reaching out to Dr. Hernandez, the pt's Neurosurgeon tomorrow to update him on the patient and his recent events. A release of infor
[2021-09-13 13:15] VITALS: BP 110/73; PULSE 68; RESP 12; TEMP 36.4; O2SAT 95
[2021-09-13 20:15] VITALS: BP 137/80; PULSE 80; RESP 18; TEMP 36.3; O2SAT 93
[2021-09-13] MEDS: lisinopriL 10 MG TABLET PO (20:50)
[2021-09-13] MEDS: PREGABALIN (*CRX) 75 MG CAPSULE 150 MG PO (20:50)
[2021-09-13] MEDS: traZODone HCL 50 MG TABLET PO (20:53)
[2021-09-13 21:45] VITALS: PULSE 68
[2021-09-13] MEDS: ALPRAZolam (*CRX) 0.25 MG TABLET PO (23:12)
[2021-09-14 04:56] VITALS: BP 126/66; PULSE 63; RESP 16; TEMP 36.6; O2SAT 96
--- NOTE | 2021-09-14 07:26 | PM.DS ---
DS: Admitting Diagnosis Discharge Date 09/14/2021 Admitting Diagnosis 1) CAD 2) Chronic Weakness 3) Spinal Stenosis 4) Physical Deconditioning 5) Alcohol Dependence 6) Chronic back pain >3 mos duration 7) Nausea and Vomiting 8) Restrictive Lung Disease DS: Discharge Diagnosis Discharge Diagnosis (1) CAD (coronary artery disease): Qualifiers: Coronary Disease-Associated Artery/Lesion type: unspecified vessel or lesion type [place] vs. transplanted heart: [place] heart Associated angina: with unspecified form of angina Qualified Code(s): I25.119 - Atherosclerotic heart disease of [place] coronary artery with unspecified angina pectoris Code(s): I25.10 - Atherosclerotic heart disease of [place] coronary artery without angina pectoris Status: Acute Assessment and Plan: - Pt. had LHC on 09/11/2021 for his history of CAD with abnormal Lexiscan that was performed prior to an elective back surgery. - TREVIN was placed in the distal LAD without complication. - Compliance with DAPT for 12 months, ASA indefinitely, and Statin therapy. Continue Lisinopril, and hold off on BB due to bradycardia. Both pt. and were advised to be compliant with medication regimen, and were educated on the need for follow up with Cardiology. - Pt. has had exacerbated overall weakness and deconditioning over the past 2 weeks prior to arrival thought to be secondary to the new lesion identified, not his significant Spinal stenosis. He does have a degree of chronic weakness, but his immediate exacerbatin was caused by his significant CAD. (2) Weakness: Code(s): R53.1 - Weakness Status: Acute Assessment and Plan: - Acute on chronic causation. Pt. was at his baseline two weeks prior to arrival with independent ambulation and over the past two weeks, pt developed extreme weakness and decline, secondary to his CAD. - Pt. will be going to rehab for further conditioning and strengthening prior to returning home. (3) Spinal stenosis: Qualifiers: Spinal region: lumbar Neurogenic claudication status: unspecified Qualified Code(s): M48.061 - Spinal stenosis, lumbar region without neurogenic claudication Code(s): M48.00 - Spinal stenosis, site unspecified Status: Chronic Assessment and Plan: - Supportive care with Hydromorphone pain pump that is implanted. - To follow up with Dr. Raimundo Hernandez, Neurosurgeon as previously ordered. - I will call and update Dr. Hernandez today regarding the patient's situation and condition. (4) Physical deconditioning: Code(s): R53.81 - Other malaise Status: Acute Assessment and Plan: - Multifactoral with chronic spinal stenosis pain and weakness, and then also with the acute factor that led to his acute weakness requiring short term placement at rehab for endurance and physical strengthening. (5) EtOH dependence: Qualifiers: Substance use status: unspecified alcohol-induced disorder Qualified Code(s): F10.29 - Alcohol dependence with unspecified alcohol-induced disorder Code(s): F10.20 - Alcohol dependence, uncomplicated Status: Acute Assessment and Plan: - Not problematic. (6) Chronic back pain greater than 3 months duration: Onset Date: Unknown Code(s): M54.9 - Dorsalgia, unspecified; G89.29 - Other chronic pain Status: Chronic Assessment and Plan: - Continue Hydromorphone pain pump. (7) Nausea and vomiting: Qualifiers: Vomiting type: unspecified Qualified Code(s): R11.2 - Nausea with vomiting, unspecified Code(s): R11.2 - Nausea with vomiting, unspecified Status: Resolved Assessment and Plan: - supportive care was offered as needed. Symptom resolved on it's own. (8) Restrictive lung disease: Code(s): J98.4 - Other disorders of lung Status: Acute Assessment and Plan: - Stable DS: Summary Hospital Course Reason for hospitali
[2021-09-14 08:33] LABS: Basophils Percent Auto 0.3 % (0.2-1.2); Eosinophils Absolute Auto 0.1 K/mm3 (0-0.3); Eosinophils Percent Auto 1.6 % (0-4.4); Hematocrit 44.7 % (42.0-52.0); Hemoglobin 14.2 g/dL (14.0-18.0); Immature Granulocyte Absolute 0.02 K/mm3 (0.00-0.031); Immature Granulocyte Percent A 0.3 % (0-0.5); Lymphocytes Absolute Auto 1.42 K/mm3 (0.9-3.2); Lymphocytes Percent Auto 20.4 % (18.3-44.2); Mean Corpuscular HGB Conc 31.8 g/dl (32-36); Mean Corpuscular Hemoglobin 28.9 pg (26-34); Mean Platelet Volume 9.6 fl (7.4-10.4); Monocytes Absolute Auto 0.6 K/mm3 (0.1-0.6); Monocytes Percent Auto 8.5 % (2.6-8.5); Neutrophils Absolute Auto 4.8 K/mm3 (1.3-6.7); Neutrophils Percent Auto 68.9 % (45.5-73.1); Platelet Count Result 202 k/mm3 (150-375); Red Blood Count 4.91 M/mm3 (4.6-6.20); Red Cell Distribution Width 12.7 % (11.5-14.5)
[2021-09-14] MEDS: BRIMONIDINE TARTRATE 0.2% OP SOLN 5 ML BTL 1 DROP EACH EYE (08:33)
[2021-09-14] MEDS: ASCORBIC ACID 500 MG TABLET PO (08:33)
[2021-09-14] MEDS: DULoxetine HCL 60 MG CAPSULE.DR PO (08:33)
[2021-09-14] MEDS: ASPIRIN 81 MG CHEWABLE TABLET PO (08:33)
[2021-09-14] MEDS: CYANOCOBALAMIN 1,000 MCG TABLET 1000 MCG PO (08:33)
[2021-09-14] MEDS: FERROUS SULFATE 324 MG TABLET PO (08:33)
[2021-09-14] MEDS: FAMOTIDINE 20 MG TABLET PO (08:33)
[2021-09-14] MEDS: CHOLECALCIFEROL 1,000 UNITS TABLET 1000 UNITS PO (08:33)
[2021-09-14] MEDS: CLOPIDOGREL BISULFATE 75 MG TABLET PO (08:33)
[2021-09-14] MEDS: ATORVASTATIN 40 MG TABLET PO (08:33)
[2021-09-14] MEDS: TIMOLOL MALEATE 0.5% OP SOLN 5 ML BOTTLE 1 DROP EACH EYE (08:34)
[2021-09-14] MEDS: VITAMIN B COMPLEX CAPSULE 1 CAP PO (08:34)
[2021-09-14] MEDS: MAGNESIUM OXIDE 400 MG TABLET PO (08:34)
[2021-09-14] MEDS: THIAMINE HCL 100 MG TABLET PO (08:34)
[2021-09-14] MEDS: VITAMIN E 1,000 UNIT CAPSULE 1000 UNIT PO (08:34)
[2021-09-14] MEDS: LOPERAMIDE HCL 2 MG CAPSULE 4 MG PO (08:43)
[2021-09-14 08:44] LABS: Alanine Aminotransferase 36 U/L (4-50); Albumin Level 4.2 g/dL (3.5-5.1); Alkaline Phosphatase 83 U/L (38-126); Anion Gap 7 mmol/L (8-16); Aspartate Amino Transferase 40 U/L (17-59); Bilirubin,Total 0.7 mg/dL (0.2-1.3); Blood Urea Nitrogen 20 mg/dL (9-20); Calcium 9.1 mg/dL (8.4-10.2); Carbon Dioxide 27 mmol/L (22-30); Chloride 103 mmol/L (98-107); Estimated CRCL calculation 83 ml/min; Estimated Glomerular Filt Rate > 60; Glucose 122 mg/dL (65-110); Magnesium 2.2 mg/dL (1.6-2.3); Potassium 4.1 mmol/L (3.4-5.0); Sodium 137 mmol/L (137-145)
[2021-09-14] MEDS: MICONAZOLE NITRATE 2% CREAM 30 GM TUBE 1 APPLIC TOPICAL (09:03)
[2021-09-14 10:33] LABS: EDCOVIDSCREEN Negative (Negative)
[2021-09-17 05:28] LABS: Red Blood Cell Folate 597 ng/mL RBC (>280)
== END 2021-09-14 11:54 | DRG 247 ==
LOC: ANHED 09-11 00:02 → ANHIMU 09-11 00:09 → ANH2MED 09-12 16:28
PROVIDERS: Emergency Medicine; Specialist; Admitting Provider Internal Medicine; Emergency Provider Nurse Practitioner Family; PCP Family Medicine; Visit Provider Nurse Practitioner Adult Health
PROC: 4A023N7 Measurement of Cardiac Sampling and Pressure, Left Heart, Percutaneous Approach (ICD-10-PCS; CPT 93452; principal; 2021-09-11 09:30)
PROC: 027034Z Dilation of Coronary Artery, One Artery with Drug-eluting Intraluminal Device, Percutaneous Approach (ICD-10-PCS; 2021-09-11 09:30)
DX: I25.119 Atherosclerotic heart disease of native coronary artery with unspecified angina pectoris (principal); F10.29 Alcohol dependence with unspecified alcohol-induced disorder; I10 Essential (primary) hypertension; R94.39 Abnormal result of other cardiovascular function study; Z20.822 Contact with and (suspected) exposure to COVID-19; R07.89 Other chest pain; J98.4 Other disorders of lung; R53.1 Weakness; R53.81 Other malaise; M48.061 Spinal stenosis, lumbar region without neurogenic claudication; M54.9 Dorsalgia, unspecified; G89.29 Other chronic pain; N31.9 Neuromuscular dysfunction of bladder, unspecified; R11.2 Nausea with vomiting, unspecified; F41.1 Generalized anxiety disorder; I25.2 Old myocardial infarction; Z59.01 Sheltered homelessness; Z79.82 Long term (current) use of aspirin; Z79.899 Other long term (current) drug therapy; Z87.891 Personal history of nicotine dependence; Z95.5 Presence of coronary angioplasty implant and graft; Z98.1 Arthrodesis status
CPT/HCPCS: 36415; 71046; 80053; 82607; 82747; 83690; 83735; 84443; 84484; 85025; 85610; 85730; 87426; 93005; 93458; 97110; 97161; 97165; 97530; 97535; 99285; A9270; C1725; C1769; C1874; C1887; C1894; C9600; C9803; J0583; J1644; J2060; J2250; J2405; J7030; J7040

== ENCOUNTER 2021-09-16 00:54 | Emergency (ER) | payer MEDICARE, OTHER, SELFPAY ==
[2021-09-16] VITALS (47 sets, daily range): BP systolic 105–181; BP diastolic 62–106; PULSE 54–77; RESP 11–23; TEMP 36.4–36.6; O2SAT 79–98
--- NOTE | ~2021-09-16 | CT_ITS ---
EXAMINATION: CT cervical spine wo con DATE: 09/16/2021 03:49 INDICATION: Neck pain. Fall. TECHNIQUE: Computed tomography (CT) of the cervical spine was performed without intravenous contrast. Automated exposure control and iterative reconstruction technique were employed. The dose-length pro duct was 424.33 mGy-cm. COMPARISON: None FINDINGS: There is 2 mm anterolisthesis of C4 on C5, 2 mm retrolisthesis of C6 on C7, and 2 mm joycelyn listhesis of C7 on T1. There is 4 degrees levocurvature of cervicothoracic spine. Vertebral body heig hts are normal. There is mildly decreased disc height at C2-C3, moderately decreased disc height at C 3-C4, mildly decreased disc height at C4-C5, severely decreased disc height at C5-C6 and C6-C7, and m ildly decreased disc height at C7-T1. The following disc levels are specifically discussed: C2-C3: There is mild bilateral uncovertebral joint osteoarthritis. There is severe right and moderate left facet joint osteoarthritis. There is moderate right neural foraminal stenosis. There is mild ce ntral canal stenosis. C3-C4: There is severe right and moderate left uncovertebral joint osteoarthritis. There is severe bi lateral facet joint osteoarthritis. There is moderate right and mild left neural foraminal stenosis. There is mild central canal stenosis. C4-C5: There is severe right and moderate left uncovertebral joint osteoarthritis. There is severe bi lateral facet joint osteoarthritis. There is moderate bilateral neural foraminal stenosis. There is m ild central canal stenosis. C5-C6: There is severe bilateral uncovertebral joint osteoarthritis. There is severe bilateral facet joint osteoarthritis. There is moderate bilateral neural foraminal stenosis. There is mild central ca nal stenosis. C6-C7: There is severe bilateral uncovertebral joint osteoarthritis. There is severe bilateral facet joint osteoarthritis. There is moderate bilateral neural foraminal stenosis. There is mild central ca nal stenosis. C7-T1: There is mild bilateral uncovertebral joint osteoarthritis. There is severe bilateral facet genevieve int osteoarthritis. There is mild lateral neural foraminal stenosis. There is mild central canal sten osis. IMPRESSION: 1. No fracture. 2. Severe cervical spondylosis. Reviewed, dictated and finalized at location A. DED BAND ASSEMBLER
--- NOTE | ~2021-09-16 | CT_ITS ---
EXAMINATION: CT brain wo con DATE: 09/16/2021 03:49 INDICATION: Neck pain. Fall. TECHNIQUE: Computed tomography (CT) of the head was performed without intravenous contrast. The mA wa s adjusted according to patient size. Iterative reconstruction technique was employed. The dose-lengt h product was 681.00 mGy-cm. COMPARISON: None FINDINGS: There are scattered areas of low attenuation in the cerebral white matter, which is within normal limits for the patient's age. There is no intracranial hemorrhage, acute infarction, or abnorm al intracranial mass lesion. There is an old blowout fracture of medial wall of left orbit. There is mucosal thickening in the paranasal sinuses. The mastoid air cells are normal. IMPRESSION: 1. Normal aging brain. Reviewed, dictated and finalized at location A. MODYNAMICS PROFESSOR IMPRESSION: 1. Normal aging brain.
--- NOTE | ~2021-09-16 | XR_ITS ---
EXAMINATION: XR chest 1V portable DATE: 09/16/2021 02:19 INDICATION: Weakness. TECHNIQUE: A single frontal view of the chest was obtained. COMPARISON: Chest 2 views 09/10/2021, chest CT 03/18/2021 FINDINGS: The lung volumes are small. There is mild atelectasis at the lung bases. No pleural effusio n or pneumothorax. The heart size is normal. IMPRESSION: 1. Small lung volumes with mild atelectasis at the lung bases. Reviewed, dictated and finalized at location A. ET MANAGER
--- NOTE | 2021-09-16 01:13 | ECG_ITS ---
Measurements Intervals [place] Rate: 63 P: 20 AK: 186 QRS: -11 QRSD: 96 T: 5 QT: 397 QTc: 409 Interpretive Statements SINUS RHYTHM NONSPECIFIC T-WAVE ABNORMALITY OR LINE ECG COMPARED TO ECG 09/12/2021 07:34:16 FIRST-DEGREE AV BLOCK NOT APPRECIATED Electronically Signed On 09-16-2021 13:15:38 YARDER PUNCHER by Jorge Cordon M.D.
[2021-09-16 01:29] LABS: Basophils Percent Auto 0.1 % (0.2-1.2); Eosinophils Percent Auto 0.6 % (0-4.4); Hematocrit 43.4 % (42.0-52.0); Hemoglobin 14.3 g/dL (14.0-18.0); Immature Granulocyte Absolute 0.02 K/mm3 (0.00-0.031); Immature Granulocyte Percent A 0.3 % (0-0.5); Lymphocytes Absolute Auto 1.03 K/mm3 (0.9-3.2); Lymphocytes Percent Auto 14.5 % (18.3-44.2); Mean Corpuscular HGB Conc 32.9 g/dl (32-36); Mean Corpuscular Hemoglobin 28.7 pg (26-34); Monocytes Absolute Auto 0.5 K/mm3 (0.1-0.6); Monocytes Percent Auto 6.6 % (2.6-8.5); Neutrophils Absolute Auto 5.5 K/mm3 (1.3-6.7); Neutrophils Percent Auto 77.9 % (45.5-73.1); Platelet Count Result 222 k/mm3 (150-375); Red Blood Count 4.99 M/mm3 (4.6-6.20); Red Cell Distribution Width 12.2 % (11.5-14.5); White Blood Count 7.1 K/mm3 (4.5-10.0)
[2021-09-16 01:37] LABS: Alanine Aminotransferase 32 U/L (4-50); Albumin Level 4.2 g/dL (3.5-5.1); Alkaline Phosphatase 103 U/L (38-126); Anion Gap 5 mmol/L (8-16); Aspartate Amino Transferase 31 U/L (17-59); Bilirubin,Total 0.7 mg/dL (0.2-1.3); Blood Urea Nitrogen 16 mg/dL (9-20); Calcium 9.1 mg/dL (8.4-10.2); Carbon Dioxide 30 mmol/L (22-30); Chloride 102 mmol/L (98-107); Estimated CRCL calculation 108 ml/min; Estimated Glomerular Filt Rate > 60; Glucose 127 mg/dL (65-110); Lipase 110 U/L (23-300); Sodium 137 mmol/L (137-145)
[2021-09-16] MEDS: SODIUM CHLORIDE 0.9% IV 1,000 ML 999 ML IV CONT (02:09)
[2021-09-16] MEDS: ONDANSETRON INJ 4 MG/2 ML VIAL IV PUSH (02:09)
[2021-09-16 02:41] LABS: Add Urine Microscopic? YES; Appearance Urine Cloudy (Clear); Bilirubin Urine Negative (Negative); Blood Urine Negative (Negative); Color Urine Yellow (Yellow); Glucose Urine UA Negative (Negative); Ketones Urine Negative (Negative); Leukocyte Esterase Ur Negative LEU/UL (Negative); Nitrate Urine Negative (Negative); Protein Urine Negative (Negative); RBC Urine 0-2 /hpf (0-2); Specific Grav Ur 1.015 (1.001-1.035); Urobilinogen Urine Negative mg/dL (<2.0); WBC Urine 0-3 /hpf
--- NOTE | 2021-09-16 03:04 | ED.WEAKNESS ---
HPI - Weakness General Chief complaint: Weakness <Naty Munoz MD - Last Filed: 09/16/21 07:15> Stated complaint: vomiting <Naty Munoz MD - Last Filed: 09/16/21 07:15> Time Seen by Provider: 09/16/21 01:24 <Naty Munoz MD - Last Filed: 09/16/21 07:15> Source: patient <Naty Munoz MD - Last Filed: 09/16/21 07:15> Mode of arrival: EMS <Naty Munoz MD - Last Filed: 09/16/21 07:15> Limitations: no limitations <Naty Munoz MD - Last Filed: 09/16/21 07:15> History of Present Illness HPI Narrative: This is a 71 year old male with history of chronic pain with pain pump, hypertension, frequent falls who presents for evaluation of nausea , vomiting, diarrhea and weakness. Patient has been having progressive weakness for 2- 3 months. He has been assessed by neurosurgery at [facility] and out of state. It is believed his weakness is multifactorial. Patient was discharged from [facility] 2 days after left cardiac catheterization and stent placement. Patient reports he started having diarrhea when he was in hospital, and he has been having nausea and vomiting. He denies abdominal pain, chest pain or fever. His states patient seems weaker, and she is concerned he is not receiving his medications at [facility]. <Naty Munoz MD - Last Filed: 09/16/21 07:15> Related Data Home medications: Home Medications Medication Instructions Recorded Confirmed brimonidine-timolol [Combigan] 1 drp OPHTHALMIC (EYE) BID 03/12/20 09/11/21 pregabalin [Lyrica] 150 mg PO HS 03/12/20 09/11/21 Hydromorphone Pain Pump 3.897 mg IMPLANT DAILY 04/30/20 09/11/21 ascorbic acid (vitamin C) [Vitamin 500 mg PO DAILY 04/30/20 09/11/21 C] cholecalciferol (vitamin D3) 25 mcg PO DAILY 04/30/20 09/11/21 [Vitamin D3] magnesium 500 mg PO DAILY 04/30/20 09/11/21 vitamin B complex 1 cap PO DAILY 04/30/20 09/11/21 vitamin E 1 tablet PO DAILY 04/30/20 09/11/21 clopidogrel 75 mg tablet 75 mg PO DAILY 04/10/21 09/11/21 cyanocobalamin (vitamin B-12) 1,000 mcg PO DAILY 08/12/21 09/11/21 1,000 mcg capsule famotidine 20 mg tablet 20 mg PO DAILY 08/12/21 09/11/21 ferrous sulfate 325 mg (65 mg 325 mg PO DAILY 08/12/21 09/11/21 iron) tablet thiamine mononitrate (vit B1) 100 100 mg PO DAILY 08/12/21 09/11/21 mg tablet <Naty Munoz MD - Last Filed: 09/16/21 07:15> Allergies/Adverse reactions: Allergies Allergy/AdvReac Type Severity Reaction Status Date / Time tramadol Allergy Mild SEIZURE Verified 09/10/21 21:51 ticagrelor [From Brilinta] AdvReac Dyspnea / Verified 09/11/21 13:19 SOB <Naty Munoz MD - Last Filed: 09/16/21 07:15> Review of Systems Review of Systems: All systems reviewed & are unremarkable except as noted in HPI and below <Nayt Munoz MD - Last Filed: 09/16/21 07:15> Constitutional: Constitutional: Denies chills, Denies fever(s) and Reports weakness <Naty Munoz MD - Last Filed: 09/16/21 07:15> Cardiovascular: Cardiovascular: Denies chest pain <Naty Munoz MD - Last Filed: 09/16/21 07:15> Respiratory: Respiratory: Denies cough and Denies dyspnea <Naty Munoz MD - Last Filed: 09/16/21 07:15> Gastrointestinal: Gastrointestinal: Denies abdominal pain, Reports diarrhea, Reports nausea and Reports vomiting <Naty Munoz MD - Last Filed: 09/16/21 07:15> Neurologic: Denies focal weakness <Naty Munoz MD - Last Filed: 09/16/21 07:15> PMFSH Past Medical History Medical History: Medical History Actinic keratoses Adhesion of intestine (~1970) Essential (primary) hypertension (Unknown) History of pelvic fracture Hx of urethral stricture Myocardial infarction Overweight (BMI 25.0-29.9) Wrist injury (~1968) <Naty Munoz MD - Last Filed: 09/16/21 07:15> Surgical History Surgical History: Surgical Histo
--- NOTE | 2021-09-16 07:15 | PC.NURSE ---
care coordination called to speak with & pt per request
[2021-09-16] MEDS: FAMOTIDINE 20 MG/2 ML VIAL IV PUSH (08:02)
[2021-09-16] MEDS: lisinopriL 10 MG TABLET PO (08:02)
--- NOTE | 2021-09-16 08:04 | PCCCNOTE ---
Addendum entered by Jennifer Alford RN 09/16/21 08:17: PT/OT ordered and called for a priority visit josi. spoke with Shawn. Original Note: met with patient and family bedside, patient is alert and oriented. patient came from [facility], but does not want to return as they feel he has not been receiveing his medications. family requested a referral be sent to [facility], CC called Alondra from [facility], she states that [place] will come and take a look at patient. CC will continue to follow.
--- NOTE | 2021-09-16 08:07 | PC.NURSE ---
pt. family member repeatedly asking RN for pt. Lyrica. pt. family member insistent He is here for his Lyrica, I think he is withdrawing from Lyrica. ERP notified of pt. request.
[2021-09-16] MEDS: ASPIRIN 81 MG ENTERIC TABLET PO (09:18)
[2021-09-16] MEDS: FERROUS SULFATE 324 MG TABLET PO (09:18)
--- NOTE | 2021-09-16 10:32 | PC.NURSE ---
stated she went home and grabbed pts Lyrica and gave the patient his medication. states he has been having withdrawl since not having it at the rehab for three days.
--- NOTE | 2021-09-16 11:36 | PCCCNOTE ---
Panda with [facility] has been in contact with , alfreda. Alfreda is filling out the pain pump form requested by the MD at [facility]. per [place], patient will likely be accepted today and can transfer over. CC will wait for final word from [place].
--- NOTE | 2021-09-16 13:05 | PC.NURSE ---
[facility] and patient aware. Spoke with body care manager and giving report at this time
--- NOTE | 2021-09-16 13:28 | PCCCNOTE ---
patietnt has been accepted to [facility]. packet given to karla Rene and Shelly the spouse made aware. Shelly plans to drive patient.
[2021-09-16 15:15] LABS: SARS-CoV-2 RNA PCR Negative
== END 2021-09-16 15:35 ==
PROVIDERS: General Practice; Emergency Provider Emergency Medicine; PCP Family Medicine
DX: R11.2 Nausea with vomiting, unspecified (principal); R53.1 Weakness; R19.7 Diarrhea, unspecified; I10 Essential (primary) hypertension; Z20.822 Contact with and (suspected) exposure to COVID-19; I25.2 Old myocardial infarction
CPT/HCPCS: 36415; 51701; 70450; 71045; 72125; 80053; 81001; 83690; 85025; 93005; 96361; 96374; 96375; 97161; 97165; 99284; A9270; C9803; J2405; J7030; U0003; U0005

== ENCOUNTER 2021-10-21 23:17 | Emergency (ER) | payer MEDICARE, OTHER, SELFPAY ==
--- NOTE | ~2021-10-21 | XR_ITS ---
EXAMINATION: XR lumbar spine 2-3V DATE: 10/22/2021 01:43 INDICATION: Low back pain after fall TECHNIQUE: Anteroposterior and lateral views of the lumbar spine, and cone-down lateral view of the l umbosacral junction were obtained. COMPARISON: 03/09/2011 FINDINGS: There are changes of posterior fusion at L4-5. There are 7 mm of unchanged anterolisthesis of L3 on L4. There is severe loss of intervertebral disc space height at T11-12 and L3-4. No fracture is identified. The vertebral body heights are maintained. A pain pump is implanted in the anterior s ubcutaneous tissues on the right. IMPRESSION: 1. Severe lumbar spondylosis without acute findings or significant interval change. Reviewed, dictated and finalized at location A. IMPRESSION: 1. Severe lumbar spondylosis without acute findings or significant interval martin nge.
[2021-10-21 23:31] VITALS: BP 159/75; PULSE 76; RESP 18; TEMP 36.9; O2SAT 98
--- NOTE | 2021-10-22 01:12 | ED.GENADULT ---
HPI - General Adult General Chief complaint: Weakness Stated complaint: fall, shaking Time Seen by Provider: 10/22/21 00:47 Source: patient and family Mode of arrival: ambulatory Limitations: no limitations History of Present Illness HPI narrative: 71-year-old male presents emergency room accompanied by his . Gives a very long convoluted history. He was in his normal state of health in July when they were traveling down to [place] to be with her son who has some cancer in his leg. This stopped in [facility] to get something to eat. At that point the patient was unsteady and could not balance himself. He could not even take a drink and put into his mouth. Took him to an emergency room. After extensive work-up and evaluation they thought maybe he had normal pressure hydrocephalus. They drained CSF fluid out however symptoms not significantly improved. They told he may need to have a shunt put in. Subsequently they turned and came back home. He went down to [place] and has been another week and a hospital there they did not feel like that was the issue but he had 2 prior back surgeries and thought maybe the issue was CSF flow from issues from his lumbar spine. They want to do another surgery. Subsequently he needed to be medically cleared as he has had cardiac issues and found that he had a significant blockage in his LAD and had to undergo having a another cardiac stent placed. He has been going to rehab and doing relatively well lately. However he had a slip and fall yesterday and since that time he has been unsteady on his feet again. He has these episodes where he just cannot seem to get his feet to move forward. Is almost like he is stuttering. This is happened to him off and on in the past. He get very nervous and anxious tonight 1 to come to the hospital be evaluated. I told them that he has a very complex issues going on that I cannot work-up those but his main issue was the just 1 to make sure there is nothing going on with his back where he had surgery. Related Data Home Medications Medication Instructions Recorded Confirmed pregabalin [Lyrica] 150 mg PO HS 03/12/20 10/01/21 Hydromorphone Pain Pump 4.087 mg IMPLANT DAILY 04/30/20 10/01/21 cholecalciferol (vitamin D3) 25 mcg PO DAILY 04/30/20 10/01/21 [Vitamin D3] magnesium 500 mg PO DAILY 04/30/20 10/01/21 vitamin B complex 1 cap PO DAILY 04/30/20 10/01/21 cyanocobalamin (vitamin B-12) 1,000 mcg PO DAILY 08/12/21 10/01/21 1,000 mcg capsule brimonidine 1 drp EACH EYE BID 09/17/21 10/01/21 timolol 1 drp EACH EYE BID 09/17/21 10/01/21 Allergies Allergy/AdvReac Type Severity Reaction Status Date / Time tramadol Allergy Mild SEIZURE Verified 10/01/21 16:02 ticagrelor [From Brilinta] AdvReac Dyspnea / Verified 10/01/21 16:02 SOB Review of Systems Review of Systems: CONSTITUTIONAL: Denies fever, chills, or sweats. EYES: Denies visual changes, redness, or discharge. ENT: Denies rhinorrhea, congestion, sore throat, or otalgia. CARDIOVASCULAR: Denies chest pain, palpitations, or edema. RESPIRATORY: Denies cough or dyspnea. GASTROINTESTINAL: Denies abdominal pain, nausea, vomiting, or diarrhea. GENITOURINARY: Denies dysuria or hematuria. SKIN: Denies rash or itching. MUSCULOSKELETAL: Chronic back pain. NEUROLOGIC: As per HPI PSYCHIATRIC: Denies anxiety or depression. REPLACED BY [facility] Past Medical History Medical History Actinic keratoses Adhesion of intestine (~1969) Essential (primary) hypertension (Unknown) Fracture of lumbar spine History of pelvic fracture History of pelvic fracture History of traumatic brain injury Hx of urethral stricture Myocardial infarction Myocardial infarction Overweight (BMI 25.0-29.9) Wrist injury (~1969) Surgical History Surgical History History of dilation of urethra History of esophagogastroduodenoscopy
[2021-10-22 01:29] VITALS: BP 135/75; PULSE 67; RESP 16; O2SAT 94
[2021-10-22] MEDS: LORATADINE 10 MG TABLET PO (01:30)
[2021-10-22 01:59] VITALS: O2SAT 92
[2021-10-22 02:00] VITALS: BP 130/68; PULSE 67; RESP 18; O2SAT 91
== END 2021-10-22 02:12 | disposition home or self-care (01) ==
PROVIDERS: Emergency Provider Emergency Medicine; PCP Family Medicine
DX: M54.50 Low back pain, unspecified (principal); M47.816 Spondylosis without myelopathy or radiculopathy, lumbar region; Z98.1 Arthrodesis status; I10 Essential (primary) hypertension; I25.10 Atherosclerotic heart disease of native coronary artery without angina pectoris; I25.2 Old myocardial infarction; E66.3 Overweight; Z68.24 Body mass index [BMI] 24.0-24.9, adult; F17.210 Nicotine dependence, cigarettes, uncomplicated; Z87.820 Personal history of traumatic brain injury; Z95.5 Presence of coronary angioplasty implant and graft; Z97.8 Presence of other specified devices; W01.0XXA Fall on same level from slipping, tripping and stumbling without subsequent striking against object, initial encounter
CPT/HCPCS: 72100; 99283; A9270

== ENCOUNTER 2021-12-09 23:30 | Emergency (ER) | payer MEDICARE, OTHER, SELFPAY ==
--- NOTE | ~2021-12-09 | XR_ITS ---
EXAMINATION: XR chest 2V 12/10/2021 00:40 INDICATION: Weakness PROCEDURE: 2 view chest COMPARISON: Comparison to multiple prior studies sequentially, with oldest reviewed study dated 02/2021. FINDINGS: The lungs are clear. Shallow inspiration with crowding of the pulmonary vessels. The cardio mediastinal silhouette is within normal limits. There are no pleural effusions. There is no pneumot horax suspected. IMPRESSION: 1: NO ACUTE CARDIOPULMONARY DISEASE. Reviewed, dictated and finalized at location A.
[2021-12-09 23:40] VITALS: BP 162/98; PULSE 78; RESP 23; O2SAT 98
[2021-12-09 23:41] VITALS: BP 162/98; PULSE 78; RESP 23; O2SAT 98
[2021-12-10 00:23] LABS: Basophils Percent Auto 0.6 % (0.2-1.2); Eosinophils Absolute Auto 0.2 K/mm3 (0-0.3); Hematocrit 43.6 % (42.0-52.0); Hemoglobin 14.3 g/dL (14.0-18.0); Immature Granulocyte Absolute 0.01 K/mm3 (0.00-0.031); Immature Granulocyte Percent A 0.2 % (0-0.5); Lymphocytes Absolute Auto 1.58 K/mm3 (0.9-3.2); Lymphocytes Percent Auto 29.2 % (18.3-44.2); Mean Corpuscular HGB Conc 32.8 g/dl (32-36); Mean Corpuscular Hemoglobin 27.8 pg (26-34); Mean Corpuscular Volume 84.7 fl (80-100); Monocytes Absolute Auto 0.4 K/mm3 (0.1-0.6); Monocytes Percent Auto 8.1 % (2.6-8.5); Neutrophils Absolute Auto 3.2 K/mm3 (1.3-6.7); Neutrophils Percent Auto 58.9 % (45.5-73.1); Platelet Count Result 186 k/mm3 (150-375); Red Blood Count 5.15 M/mm3 (4.6-6.20); Red Cell Distribution Width 13.8 % (11.5-14.5); White Blood Count 5.4 K/mm3 (4.5-10.0)
[2021-12-10 00:24] LABS: Appearance Urine Clear (Clear); Bilirubin Urine Negative (Negative); Blood Urine Negative (Negative); Color Urine Yellow (Yellow); Glucose Urine UA Negative (Negative); Ketones Urine Negative (Negative); Leukocyte Esterase Ur Negative LEU/UL (Negative); Nitrate Urine Negative (Negative); Protein Urine Negative (Negative); Specific Grav Ur 1.015 (1.001-1.035); Urobilinogen Urine 0.2 mg/dL (<2.0); pH Urine 7.5 (5.0-9.0)
--- NOTE | 2021-12-10 00:29 | PC.NURSE ---
Pt in radiology at this time.
[2021-12-10 00:31] LABS: Add Urine Microscopic? NO; RBC Urine 0-2 /hpf (0-2); WBC Urine 0-3 /hpf
[2021-12-10 00:39] LABS: Alanine Aminotransferase 17 U/L (6-50); Albumin Level 4.5 g/dL (3.5-5.1); Alkaline Phosphatase 106 U/L (38-126); Anion Gap 8 mmol/L (8-16); Aspartate Amino Transferase 42 U/L (17-59); Bilirubin,Total 0.4 mg/dL (0.2-1.3); Blood Urea Nitrogen 19 mg/dL (9-20); Calcium 9.1 mg/dL (8.4-10.2); Carbon Dioxide 28 mmol/L (22-30); Chloride 103 mmol/L (98-107); Estimated CRCL calculation 108 ml/min; Estimated Glomerular Filt Rate > 60; Glucose 154 mg/dL (65-110); Potassium 3.5 mmol/L (3.4-5.0); Sodium 139 mmol/L (137-145)
[2021-12-10] MEDS: SODIUM CHLORIDE 0.9% IV 1,000 ML 999 ML IV CONT (00:44)
--- NOTE | 2021-12-10 01:02 | ECG_ITS ---
Measurements Intervals [place] Rate: 67 P: 22 IL: 145 QRS: -1 QRSD: 87 T: -31 QT: 372 QTc: 394 Interpretive Statements SINUS RHYTHM WITH OCCASIONAL SUPRAVENTRICULAR PREMATURE COMPLEXES NONSPECIFIC T-WAVE ABNORMALITY BORDERLINE ECG COMPARED TO ECG 09/16/2021 01:08:37 NO SIGNIFICANT CHANGES Electronically Signed On 12-10-2021 17:41:21 CDT by Jorge Cordon M.D.
[2021-12-10 01:47] LABS: Influenza A QL RT-PCR Negative (Negative); Influenza B QL RT-PCR Negative (Negative); SARS-CoV-2 RNA PCR Negative
--- NOTE | 2021-12-10 02:08 | ED.GENADULT ---
HPI - General Adult General Chief complaint: Unspecified Stated complaint: generalized not feeling well Time Seen by Provider: 12/09/21 23:35 History of Present Illness HPI narrative: Patient is a 71-year-old male who presents to the ER because he does not feel well. Apparently patient had a very good day with his and went on many walks and did well with physical therapy. They would then went to a evening celebration for a family member and he started feel hot and anxious. They ended up leaving early and he took an anxiety medication which did not help. He continued to feel well at home. No fevers or chills or sweats. No known infectious exposures. No cough or sore throat or sinus congestion. He is without chest pain or chest pressure. He does report that he took his morning medications at 4 in the afternoon due to how busy he was earlier. No heat exposure. Related Data Home Medications Medication Instructions Recorded Confirmed pregabalin 150 mg capsule (Lyrica) 150 mg PO HS 03/12/20 11/05/21 Hydromorphone Pain Pump 4.087 mg implant DAILY pain 04/30/20 11/05/21 cholecalciferol (vitamin D3) 25 25 mcg PO DAILY 04/30/20 11/05/21 mcg (1,000 unit) capsule (Vitamin D3) magnesium 500 mg tablet 500 mg PO DAILY 04/30/20 11/05/21 vitamin B complex 1 cap PO DAILY 04/30/20 11/05/21 cyanocobalamin (vitamin B-12) 1,000 mcg PO DAILY 08/12/21 11/05/21 1,000 mcg capsule brimonidine 0.2 % eye drops 1 drp EACH EYE BID 09/17/21 11/05/21 timolol 0.5 % eye drops 1 drp EACH EYE BID 09/17/21 11/05/21 carbidopa 25 mg-levodopa 250 mg 1 tablet PO QHS 11/20/21 disintegrating tablet Allergies Allergy/AdvReac Type Severity Reaction Status Date / Time tramadol Allergy Mild SEIZURE Verified 11/20/21 10:35 ticagrelor [From Brilinta] AdvReac Dyspnea / Verified 11/20/21 10:35 SOB Review of Systems Review of Systems: All systems reviewed & are unremarkable except as noted in HPI and below Constitutional: Constitutional: Denies chills, Reports fatigue and Denies fever(s) ENT: Denies nasal congestion and Denies sore throat Cardiovascular: Cardiovascular: Denies chest pain, Denies rapid heart rate and Denies radiating jaw, neck or arm pain Respiratory: Respiratory: Denies cough, Denies dyspnea and Denies wheezing Psychiatric: Psychiatric: Reports anxiety and Denies depression [facility] Past Medical History Medical History (Updated 12/10/21 @ 02:39 by Maldonado Gallego MD) Actinic keratoses 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 Essential (primary) hypertension (Unknown) Fracture of lumbar spine History of pelvic fracture History of pelvic fracture History of traumatic brain injury Hx of urethral stricture Myocardial infarction Myocardial infarction Overweight (BMI 25.0-29.9) Parkinsonism Wrist injury (~1968) Surgical History Surgical History History of dilation of urethra History of esophagogastroduodenoscopy (EGD) Family History Family History Mother Family history of cardiovascular disease Diabetes mellitus Patient's mother is Father Patient's father is Sibling Cancer Social History Social History Tobacco type: cigarettes Second hand tobacco smoke exposure: No Alcohol intake: current Drinks per week: 12 Alcohol use details: 5-6 beers/day Substance use: former Substance use type: does not use Additional living arrangements comments: lives with and a friend Gender identity (if verbalized by the patient): Male Spiritual care concerns: No Exam Narrative: GENERAL: Well-appearing, well-nourished, and in no acute distress. HEAD: Normocephalic, atraumatic. ENT: Mucous membranes moist. CHEST: Clear to auscultation. No respiratory distress. HEART: Re
[2021-12-10 03:09] VITALS: BP 145/80; PULSE 74; RESP 18; O2SAT 98
== END 2021-12-10 03:00 | disposition home or self-care (01) ==
PROVIDERS: Emergency Provider Emergency Medicine; PCP Family Medicine
DX: R53.1 Weakness (principal); Z20.822 Contact with and (suspected) exposure to COVID-19; I10 Essential (primary) hypertension; I25.2 Old myocardial infarction; G20 Parkinson's disease; E66.3 Overweight; Z68.24 Body mass index [BMI] 24.0-24.9, adult; Z87.820 Personal history of traumatic brain injury; I49.1 Atrial premature depolarization; R94.31 Abnormal electrocardiogram [ECG] [EKG]; F17.210 Nicotine dependence, cigarettes, uncomplicated
CPT/HCPCS: 36415; 71046; 80053; 81003; 85025; 87502; 93005; 96360; 96361; 99283; C9803; J7030; U0003; U0005

== ENCOUNTER 2022-01-06 10:04 | Outpatient (CLI) | payer MEDICARE, OTHER, SELFPAY ==
--- NOTE | 2022-01-06 11:30 | NEURO_ITS ---
Impression: # Complains of all extremities weakness. # Generalized neuropathy with involvement of lower extremities more than upper, ulnar nerves more than median and left ulnar more than right of axonal type. # No Carpal Tunnel Syndrome. # Bilateral ulnar neuropathy. # Neurogenic changes noted on the needle/EMG exam. Nerve Conduction Studies Anti Sensory Summary Table Stim Site NR Peak (ms) P-T Amp (?V) Site1 Site2 Delta-P (ms) Dist (cm) Ermias (m/s) Left Median Anti Sensory (2-3nd Digit) Wrist 3.3 15.5 Wrist 2-3nd Digit 3.3 14.0 42 Wrist 3.7 13.3 Wrist 2-3nd Digit 3.3 14.0 42 Right Median Anti Sensory (2-3nd Digit) Wrist 3.5 33.1 Wrist 2-3nd Digit 3.5 14.0 40 Wrist 3.3 41.8 Wrist 2-3nd Digit 3.5 14.0 40 Left Radial Anti Sensory (Base 1st Digit) Wrist 2.4 6.6 Wrist Base 1st Digit 2.4 0.0 Right Radial Anti Sensory (Base 1st Digit) Wrist 2.8 6.6 Wrist Base 1st Digit 2.8 0.0 Left Sup Fibular Anti Sensory (Ant Lat Mall) 14 cm 3.4 23.1 14 cm Ant Lat Mall 3.4 16.0 47 Right Sup Fibular Anti Sensory (Ant Lat Mall) NO RESPONSE 14 cm NR 14 cm Ant Lat Mall 16.0 Left Sural Anti Sensory (Lat Mall) Calf 4.2 4.5 Calf Lat Mall 4.2 16.0 38 Right Sural Anti Sensory (Lat Mall) NO RESPONSE Calf NR Calf Lat Mall 16.0 Left Ulnar Anti Sensory (5th Digit) NO RESPONSE Wrist NR Wrist 5th Digit 14.0 Right Ulnar Anti Sensory (5th Digit) Wrist 3.2 9.0 Wrist 5th Digit 3.2 14.0 44 Motor Summary Table Stim Site NR Onset (ms) O-P Amp (mV) Site1 Site2 Delta-0 (ms) Dist (cm) Ermias (m/s) Left Median Motor (Abd Poll Brev) Wrist 3.8 2.2 Elbow Wrist 6.2 34.0 55 Elbow 10.0 1.9 Right Median Motor (Abd Poll Brev) Wrist 3.4 5.2 Elbow Wrist 6.0 32.0 53 Elbow 9.4 4.8 Left Peroneal Motor (Vastus Med) Ankle 5.8 0.3 Popit Ankle 12.6 47.0 37 Popit 18.4 0.2 Right Peroneal Motor (Vastus Med) Ankle 5.5 0.3 Popit Ankle 11.0 41.0 37 Popit 16.5 0.2 Left Tibial Motor (Abd Eddy Brev) Ankle 5.8 0.6 Knee Ankle 12.9 48.0 37 Knee 18.7 0.5 Right Tibial Motor (Abd Eddy Brev) Ankle 6.0 0.7 Knee Ankle 12.7 48.0 38 Knee 18.7 0.3 Left Ulnar Motor (Abd Dig Minimi) NO RESPONSE Wrist NR A Elbow Wrist 33.0 A Elbow NR Right Ulnar Motor (Abd Dig Minimi) Wrist 3.6 3.2 A Elbow Wrist 9.1 32.0 35 A Elbow 12.7 1.4 B Elbow Wrist 4.0 23.0 58 B Elbow 7.6 2.1 F Wave Studies NR F-Lat (ms) L-R F-Lat (ms) Left Median (Mrkrs) (Abd Poll Brev) 32.52 0.04 Right Median (Mrkrs) (Abd Poll Brev) 32.48 0.04 Left Peroneal (Mrkrs) (EDB) 71.58 0.70 Right Peroneal (Mrkrs) (EDB) 72.28 0.70 Left Tibial (Mrkrs) (Abd Hallucis) 74.97 2.34 Right Tibial (Mrkrs) (Abd Hallucis) 77.31 2.34 Left Ulnar (Mrkrs) (Abd Dig Min) 32.72 0.00 Right Ulnar (Mrkrs) (Abd Dig Min) 32.72 0.00 EMG Side Muscle Nerve Root Ins Act Fibs Amp Dur Recrt Comment Right 1stDorInt Ulnar C8-T1 Nml Nml Nml Nml Nml Right Ext Indicis Radial (Post Int) C7-8 Nml Nml Nml Nml Nml Right Ext Digitorum Radial (Post Int) C7-8 Nml Nml Nml Nml Nml Right BrachioRad Radial C5-6 Nml Nml Nml Nml Nml Righ
== END 2022-01-06 10:05 | disposition home or self-care (01) ==
LOC: ANHNEURO 10:05
PROVIDERS: PCP Family Medicine; Visit Provider Psychiatry & Neurology Neurology
DX: G57.93 Unspecified mononeuropathy of bilateral lower limbs (principal); R53.1 Weakness; G56.23 Lesion of ulnar nerve, bilateral upper limbs
CPT/HCPCS: 95886; 95913

== ENCOUNTER 2022-03-03 13:17 | Outpatient (CLI) | payer MEDICARE, OTHER, SELFPAY ==
--- NOTE | ~2022-03-03 | XR_ITS ---
EXAMINATION: [id number] INDICATION: Left rib pain TECHNIQUE: A frontal view of the chest and 3 views of the left ribs were obtained. COMPARISON: 12/10/2021 FINDINGS: The lungs are free of acute opacities. No pleural effusion or pneumothorax. The cardiomedia stinal silhouette is normal. There are minimally displaced fractures at the lateral aspects of the le ft fifth and sixth ribs. IMPRESSION: 1. Minimally displaced fractures at the lateral aspects of the left fifth and sixth ribs. 2. No acute cardiopulmonary abnormality. Reviewed, dictated and finalized at location B. IMPRESSION: 1. Minimally displaced fractures at the lateral aspects of the left fifth and s ixth ribs. 2. No acute cardiopulmonary abnormality.
== END 2022-03-03 13:18 | disposition home or self-care (01) ==
PROVIDERS: PCP Family Medicine; Visit Provider Family Medicine
DX: R07.81 Pleurodynia (principal)
CPT/HCPCS: 71101

== ENCOUNTER 2022-06-28 14:07 | Outpatient (NON) | payer MEDICARE, OTHER, SELFPAY | END 2022-06-28 14:08 | disposition home or self-care (01) | LOC: ANHLAB 14:08 | PROVIDERS: PCP Family Medicine; Visit Provider Nurse Practitioner | DX: C44.92 Squamous cell carcinoma of skin, unspecified (principal) | CPT/HCPCS: 88305; 88331 ==

== ENCOUNTER 2022-11-14 07:58 | Observation (INO) | payer MEDICARE, OTHER, SELFPAY ==
[2022-11-14] VITALS (27 sets, daily range): BP systolic 120–174; BP diastolic 67–98; PULSE 70–106; RESP 9–34; TEMP 35.6–36.4; O2SAT 92–98; BMI 25.5; BMI 25.3
--- NOTE | ~2022-11-14 | XR_ITS ---
EXAMINATION: XR abdomen NG/feed tube insert DATE: 11/14/2022 10:20 INDICATION: Nasogastric tube placement. TECHNIQUE: An upright view of the abdomen was obtained. COMPARISON: None. FINDINGS: The lower abdomen is excluded. There are no dilated loops of bowel. The nasogastric tube ti p is in the stomach. There are changes of posterior fusion procedure in lumbar spine. IMPRESSION: 1. Nasogastric tube tip in the stomach. Reviewed, dictated and finalized at location A.
[2022-11-14 08:16] LABS: Basophils Percent Auto 0.4 % (0.2-1.2); Eosinophils Absolute Auto 0.3 K/mm3 (0-0.3); Eosinophils Percent Auto 3.4 % (0-4.4); Hematocrit 36.7 % (42.0-52.0); Hemoglobin 11.8 g/dL (14.0-18.0); Immature Granulocyte Absolute 0.03 K/mm3 (0.00-0.031); Immature Granulocyte Percent A 0.3 % (0-0.5); Lymphocytes Absolute Auto 1.75 K/mm3 (0.9-3.2); Lymphocytes Percent Auto 18.4 % (18.3-44.2); Mean Corpuscular HGB Conc 32.2 g/dl (32-36); Mean Corpuscular Hemoglobin 28.2 pg (26-34); Mean Corpuscular Volume 87.6 fl (80-100); Monocytes Absolute Auto 0.4 K/mm3 (0.1-0.6); Monocytes Percent Auto 4.4 % (2.6-8.5); Neutrophils Absolute Auto 6.9 K/mm3 (1.3-6.7); Neutrophils Percent Auto 73.1 % (45.5-73.1); Platelet Count Result 215 k/mm3 (150-375); Red Blood Count 4.19 M/mm3 (4.6-6.20); White Blood Count 9.5 K/mm3 (4.5-10.0)
[2022-11-14] MEDS: SODIUM CHLORIDE 0.9% IV 1,000 ML 999 ML IV CONT (08:23)
[2022-11-14] MEDS: PANTOPRAZOLE SODIUM IV 40 MG VIAL 80 MG IV PUSH (08:26)
[2022-11-14 08:27] LABS: Alanine Aminotransferase 25 U/L (6-50); Albumin Level 3.6 g/dL (3.5-5.1); Alkaline Phosphatase 77 U/L (38-126); Anion Gap 6 mmol/L (8-16); Aspartate Amino Transferase 30 U/L (17-59); Bilirubin,Total 0.5 mg/dL (0.2-1.3); Blood Urea Nitrogen 27 mg/dL (9-20); Calcium 8.2 mg/dL (8.4-10.2); Carbon Dioxide 29 mmol/L (22-30); Chloride 104 mmol/L (98-107); Estimated CRCL calculation 107 ml/min; Estimated Glomerular Filt Rate > 60; Glucose 132 mg/dL (65-110); Potassium 4.3 mmol/L (3.4-5.0); Sodium 139 mmol/L (137-145)
[2022-11-14] MEDS: PANTOPRAZOLE SODIUM IV 80 MG in SODIUM CHLORIDE 0.9% IV 500 ML 50 MG IV CONT (08:28)
--- NOTE | 2022-11-14 08:31 | ED.GENADULT ---
HPI - General Adult General Chief complaint: Nausea/Vomiting/Diarrhea Stated complaint: coffee ground emesis History of Present Illness HPI narrative: Patient is a 72-year-old male who presents ER with coffee-ground emesis. Patient woke this morning with epigastric pain and fullness. He felt very bloated and then he began vomiting. No fevers or chills or sweats. No blood in his stool that he has noticed and no dark black stools. Reports he took 4 doses of aspirin yesterday and 4 doses of aspirin a day before because he has been having some back pain due to doing yard work and his morphine pain pump has not been able to keep up with his discomfort. No history of GI bleed previously. Patient takes Plavix. No fevers or chills or sweats. No syncope Related Data Home Medications Medication Instructions Recorded Confirmed pregabalin 150 mg capsule (Lyrica) 150 mg PO HS 03/12/20 11/14/22 Hydromorphone Pain Pump 4.488 mg implant DAILY pain 04/30/20 11/14/22 cholecalciferol (vitamin D3) 25 25 mcg PO DAILY 04/30/20 11/14/22 mcg (1,000 unit) capsule (Vitamin D3) magnesium 500 mg tablet 500 mg PO DAILY 04/30/20 11/14/22 vitamin B complex 1 cap PO DAILY 04/30/20 11/14/22 cyanocobalamin (vitamin B-12) 1,000 mcg PO DAILY 08/12/21 11/14/22 1,000 mcg capsule brimonidine 0.2 %-timolol 0.5 % 1 drp EACH EYE Q12H 11/14/22 11/14/22 eye drops carbidopa 25 mg-levodopa 100 mg 3 tablet PO TID 11/14/22 11/14/22 tablet d-mannose 500 mg capsule 500 mg PO DAILY 11/14/22 11/14/22 Allergies Allergy/AdvReac Type Severity Reaction Status Date / Time tramadol Allergy Mild SEIZURE Verified 11/14/22 11:45 ticagrelor [From Brilinta] AdvReac Dyspnea / Verified 11/14/22 11:45 SOB Review of Systems Review of Systems: All systems reviewed & are unremarkable except as noted in HPI and below Constitutional: Constitutional: Denies chills, Denies fatigue and Denies fever(s) ENT: Denies nasal congestion and Denies sore throat Cardiovascular: Cardiovascular: Denies chest pain, Denies rapid heart rate and Denies radiating jaw, neck or arm pain Respiratory: Respiratory: Denies cough and Denies dyspnea Gastrointestinal: Gastrointestinal: Reports abdominal pain, Denies diarrhea, Reports nausea and Reports vomiting Neurologic: Denies syncope and Denies focal weakness [facility] Past Medical History Medical History (Updated 11/14/22 @ 18:17 by Maldonado Gallego MD) Actinic keratoses Chronic pain syndrome Pain pump. Coronary artery disease Depression Essential (primary) hypertension Fracture of lumbar spine History of seizure Attributed to tramadol. Myocardial infarction Neurogenic bladder Parkinsonism Pelvic fracture Traumatic brain injury Urethral stricture Surgical History Surgical History (Updated 11/14/22 @ 15:14 by Aleida Jerez PA-C) History of appendectomy History of cardiac catheterization 03/13/2020, 03/20/2021, 09/11/2021 History of cholecystectomy History of coronary artery stent placement History of dilation of urethra History of esophagogastroduodenoscopy (EGD) History of lumbar surgery History of partial colectomy History of tonsillectomy Status post glaucoma surgery Family History Family History (Updated 11/14/22 @ 15:15 by Aleida Jerez PA-C) Mother Family history of cardiovascular disease Diabetes mellitus Patient's mother is Father Patient's father is Sibling Cancer Breast cancer Son Melanoma Thyroid cancer Social History Social History (Updated 11/14/22 @ 15:17 by Aleida Jerez PA-C) Social History: Surrogate medical decision maker: Madan Wellington (son) or Stefanie Wellington (spouse). Code status: Full code. Smoking packs per day: 1 Smoking cigarettes per day: 20.0 Years smoked: 1.5 Smoking pack-years: 1.50 Smoking status: Former smoker Tobacco type: cigarettes Second hand tobacco smoke exposure: No Alcohol intake: form
[2022-11-14 08:35] LABS: INR 1.1; Prothrombin Time 15.1 Seconds (11.1-14.7)
[2022-11-14 08:36] LABS: Partial Thromboplastin Time 26.3 SECONDS (22.3-36.8)
--- NOTE | 2022-11-14 08:38 | PC.NURSE ---
Pt states he felt like he needed to have a BM. RN assists pt to bedside commode. While on the commode pt starts having episodes of more bloody coffee ground emesis. Pt is assisted back into bed.
[2022-11-14] MEDS: ONDANSETRON INJ 4 MG/2 ML VIAL IV PUSH (08:53)
--- NOTE | 2022-11-14 09:34 | PC.NURSE ---
Pt states he is having very bad anxiety and does not think he will be able to have the NG tube inserted.
[2022-11-14] MEDS: LORazepam INJ (*CRX) 2 MG/ML VIAL 0.5 MG IV PUSH ×2 (09:43→13:04)
--- NOTE | 2022-11-14 11:00 | PC.NURSE ---
This patient, Joe Wellington, was admitted to [facility] Surg Room 313-01. Patient/family oriented to hospital policies and general routines including ID bracelet, bed and alarms, visiting hours, pain management, procedures, bathroom and other care routines, personal items, smoking policy, room service/diet, and visiting hours. Information on how to activate the Rapid Response Team has been discussed. Patient/Family are encouraged to report perceived risks to care and to ask questions if they do not understand what they are told or what they should do.
[2022-11-14] MEDS: SODIUM CHLORIDE 0.9% IV 1,000 ML 125 ML IV CONT (12:17)
--- NOTE | 2022-11-14 13:30 | PM.IMHP ---
H&P: HPI History of Present Illness Date/Time: 11/14/22 13:30 Chief Complaint: Epigastric pain and vomiting. Narrative: This is a very pleasant 72-year-old male with parkinsonism, coronary artery disease with history of stents, hypertension, and chronic back pain who presented to the emergency department via EMS from home for evaluation of epigastric pain and vomiting. Patient provides the following history. He awoke in the middle of the night with severe gas-like discomfort in the epigastric region radiating through to the back associated with nausea, sweats, and bloating. He took Tums and drank some root beer and was able to belch a bit without improvement. Shortly thereafter he had a large episode of what appeared to be coffee-ground emesis. With further questioning he endorses intermittent epigastric discomfort over the past month or so for which he has been taking increasing doses of Tums. He is on aspirin and clopidogrel and recently he has been taking an extra dose or so of Excedrin for acute on chronic back pain. He has a pain pump in place but he has been more active recently and that has seemed to aggravate his pain. He has no known history of peptic ulcers and has not had issues with esophagitis or gastritis. He had a normal bowel movement yesterday. He is not currently having any significant abdominal or epigastric discomfort. He denies chest pain, shortness a breath, lightheadedness, dizziness, melena, and hematochezia. In the ED: Vital signs were stable on arrival. Labs were significant for a hemoglobin and hematocrit of 11.8 and 36.7% respectively, BUN 27, creatinine 0.60. Gastric lavage yielded not quite 50 mL of dark brown/red fluid and which was flushed to clear. He has since been started on Protonix drip and he is being admitted for close monitoring and GI consultation. Review of Systems Review of Systems: Twelve systems were reviewed and are negative except for as per HPI. [facility] Past Medical History Medical History (Updated 11/14/22 @ 15:14 by Aleida Jerez PA-C) Actinic keratoses Chronic pain syndrome Pain pump. Coronary artery disease Depression Essential (primary) hypertension Fracture of lumbar spine History of seizure Attributed to tramadol. Myocardial infarction Neurogenic bladder Parkinsonism Pelvic fracture Traumatic brain injury Urethral stricture Surgical History Surgical History (Updated 11/14/22 @ 15:14 by Aleida Jerez PA-C) History of appendectomy History of cardiac catheterization 03/13/2020, 03/20/2021, 09/11/2021 History of cholecystectomy History of coronary artery stent placement History of dilation of urethra History of esophagogastroduodenoscopy (EGD) History of lumbar surgery History of partial colectomy History of tonsillectomy Status post glaucoma surgery Family History Family History (Updated 11/14/22 @ 15:15 by Aleida Jerez PA-C) Mother Family history of cardiovascular disease Diabetes mellitus Patient's mother is Father Patient's father is Sibling Cancer Breast cancer Son Melanoma Thyroid cancer Social History Social History (Updated 11/14/22 @ 15:17 by Aleida Jerez PA-C) Social History: Surrogate medical decision maker: Madan Wellington (son) or Stefanie Wellington (spouse). Code status: Full code. Smoking packs per day: 1 Smoking cigarettes per day: 20.0 Years smoked: 1.5 Smoking pack-years: 1.50 Smoking status: Former smoker Tobacco type: cigarettes Second hand tobacco smoke exposure: No Alcohol intake: former Substance use: never Substance use type: does not use Lack of Transportation: No Lack of Food: Never True Current Housing: I Have Housing Concerned About Future Housing: No Difficulty Paying Gas/Electric Bills: No Difficulty Paying for Meds: No Currently Unemployed: No Education: Bachelor's Degree Difficulty w/ Childcare or Family Care: No Living arra
[2022-11-14 14:55] LABS: Hemoglobin 11.1 g/dL (14.0-18.0)
[2022-11-14] MEDS: CARBIDOPA/LEVODOPA 25/100 MG TABLET 3 TABLET PO (16:51)
--- NOTE | 2022-11-14 19:35 | WPDGICN ---
Assessment and Plan Assessment and plan (1) Coffee ground emesis: Code(s): K92.0 - Hematemesis Status: Acute Assessment and Plan: iv protonix probably ulcer/esophagitis, etc egd tomorrow npo after midnight (had NGT in the er, only obtained about 50ml content) (2) Acute upper GI bleed: Code(s): K92.2 - Gastrointestinal hemorrhage, unspecified Status: Acute Assessment and Plan: iv protonix egd monitor for more signs of bleeding (3) Chronic pain syndrome: Code(s): G89.4 - Chronic pain syndrome Status: Acute Assessment and Plan: avoid nsaid's for now (4) CAD (coronary artery disease): Onset Date: ~03/2020 Qualifiers: Coronary Disease-Associated Artery/Lesion type: [place] artery [place] vs. transplanted heart: [place] heart Associated angina: with other forms of angina Qualified Code(s): I25.118 - Atherosclerotic heart disease of [place] coronary artery with other forms of angina pectoris Code(s): I25.10 - Atherosclerotic heart disease of [place] coronary artery without angina pectoris Status: Resolved Assessment and Plan: hold plavix GI Consult Note Consult date/time: 11/14/22 19:35 Reason for consult: coffee ground emesis, epigastric pain HPI: Joe Wellington is a 72 year old male with history of?parkinsonism, coronary artery disease with history of stents, hypertension, and chronic back pain who presented to the emergency department via EMS from home for evaluation of epigastric pain and vomiting. He has been using tums for last month because of dyspepsia but last 2 days with new onset of epigastric pain radiating through to the back associated with nausea, sweats, and bloating. Then had a large episode of coffee-ground emesis. Last 2 days had more back pain than usual and used Excedrin (He has a pain pump in place). Labs were significant for a hemoglobin and hematocrit of 11.8 and 36.7% respectively, BUN 27, creatinine 0.60. No recent egd, had colonoscopy about 3-4 years ago and was told that did not need a repeat one. Started on iv protonix. Review of Systems Review of Systems: All systems reviewed & are unremarkable except as noted in HPI and below Constitutional: Constitutional: Denies chills, Denies fatigue and Denies fever(s) Eyes: Eyes: Denies blurry vision ENT: Denies nasal congestion and Denies sore throat Cardiovascular: Cardiovascular: Denies chest pain, Denies rapid heart rate and Denies radiating jaw, neck or arm pain Respiratory: Respiratory: Denies cough and Denies dyspnea Gastrointestinal: Gastrointestinal: Reports abdominal pain, Denies diarrhea, Reports nausea and Reports vomiting Genitourinary: Genitourinary: Denies hematuria Musculoskeletal: Musculoskeletal: Reports back pain Integumentary/Breasts: Skin/Breast: Denies rash Neurologic: Denies syncope and Denies focal weakness Psychiatric: Psychiatric: Denies behavioral changes [facility] Past Medical History Medical History (Updated 11/14/22 @ 19:39 by Quintin Styles MD) Actinic keratoses Chronic pain syndrome Pain pump. Coffee ground emesis Coronary artery disease Depression Essential (primary) hypertension Fracture of lumbar spine History of seizure Attributed to tramadol. Myocardial infarction Neurogenic bladder Parkinsonism Pelvic fracture Traumatic brain injury Urethral stricture Surgical History Surgical History (Updated 11/14/22 @ 15:14 by Aleida Jerez PA-C) History of appendectomy History of cardiac catheterization 03/13/2020, 03/20/2021, 09/11/2021 History of cholecystectomy History of coronary artery stent placement History of dilation of urethra History of esophagogastroduodenoscopy (EGD) History of lumbar surgery History of partial colectomy History of tonsillectomy Status post glaucoma surgery Family History Family History (Updated 11/14/22 @ 15:15 by Aleida Jerez PA-C) Mother Fa
[2022-11-14 21:09] LABS: Hematocrit 32.7 % (42.0-52.0); Hemoglobin 10.4 g/dL (14.0-18.0)
[2022-11-14] MEDS: lisinopriL 10 MG TABLET PO (21:44)
[2022-11-14] MEDS: BRIMONIDINE TARTRATE 0.2% OP SOLN 5 ML BTL 1 DROP EACH EYE (21:44)
[2022-11-14] MEDS: TIMOLOL MALEATE 0.5% OP SOLN 5 ML BOTTLE 1 DROP EACH EYE (21:44)
[2022-11-14] MEDS: PREGABALIN (*CRX) 75 MG CAPSULE 150 MG PO (21:54)
[2022-11-15] VITALS (15 sets, daily range): BP systolic 82–114; BP diastolic 33–78; PULSE 53–72; RESP 12–20; TEMP 36.1–36.4; O2SAT 92–100
[2022-11-15 02:18] LABS: Hematocrit 29.9 % (42.0-52.0); Hemoglobin 9.7 g/dL (14.0-18.0)
[2022-11-15 06:36] LABS: Hematocrit 30.3 % (42.0-52.0); Hemoglobin 9.7 g/dL (14.0-18.0); Mean Corpuscular Hemoglobin 28.4 pg (26-34); Mean Corpuscular Volume 88.6 fl (80-100); Mean Platelet Volume 10.3 fl (7.4-10.4); Platelet Count Result 178 k/mm3 (150-375); Red Blood Count 3.42 M/mm3 (4.6-6.20); Red Cell Distribution Width 13.3 % (11.5-14.5); White Blood Count 6.6 K/mm3 (4.5-10.0)
[2022-11-15 06:50] LABS: Anion Gap 2 mmol/L (8-16); Blood Urea Nitrogen 28 mg/dL (9-20); Calcium 7.9 mg/dL (8.4-10.2); Carbon Dioxide 30 mmol/L (22-30); Chloride 104 mmol/L (98-107); Estimated CRCL calculation 107 ml/min; Estimated Glomerular Filt Rate > 60; Glucose 97 mg/dL (65-110); Potassium 3.9 mmol/L (3.4-5.0); Sodium 136 mmol/L (137-145)
[2022-11-15] MEDS: CARBIDOPA/LEVODOPA 25/100 MG TABLET 3 TABLET PO ×3 (08:29→18:05)
[2022-11-15] MEDS: TIMOLOL MALEATE 0.5% OP SOLN 5 ML BOTTLE 1 DROP EACH EYE ×2 (08:30→21:09)
[2022-11-15] MEDS: BRIMONIDINE TARTRATE 0.2% OP SOLN 5 ML BTL 1 DROP EACH EYE ×2 (08:30→21:09)
[2022-11-15] MEDS: DULoxetine HCL 60 MG CAPSULE.DR PO (08:30)
[2022-11-15 09:12] LABS: Iron 66 ug/dL (49-181)
[2022-11-15 09:22] LABS: Percent Iron Saturation 22 % (20-50)
[2022-11-15 09:24] LABS: Transferrin 201 mg/dL (206-381)
[2022-11-15 10:24] LABS: Folic Acid > 20.0 ng/mL (2.76->20)
[2022-11-15] MEDS: PANTOPRAZOLE SODIUM IV 40 MG VIAL IV PUSH ×2 (11:45→21:10)
[2022-11-15 12:11] LABS: Hematocrit 29.3 % (42.0-52.0); Hemoglobin 9.2 g/dL (14.0-18.0)
[2022-11-15] MEDS: LACTATED RINGERS 1,000 ML 150 ML IV CONT (13:10)
--- NOTE | 2022-11-15 13:38 | WPDANESEPPF ---
Anes - Initial Pre Proc Eval Procedure: Operation Date: 11/15/22 14:15 Proposed Procedures p Esophagogastroduodenoscopy - Quintin Styles MD Date/Time: 11/15/22 13:38 Surgeon: Mathew Neal MD Pre Op Diagnosis: Upper GI Bleed Patient Data Age: 72 Gender: M Height: 1.88 m Weight: 92.8 kg Last Vital Signs Temp 97.5 F L 11/15/22 13:05 Pulse 57 L 11/15/22 13:05 Resp 18 11/15/22 13:05 BP 111/53 L 11/15/22 13:05 Pulse Ox 96 11/15/22 13:05 O2 Del Method Room Air 11/15/22 13:05 Allergies Allergy/AdvReac Type Severity Reaction Status Date / Time tramadol Allergy Mild SEIZURE Verified 11/15/22 13:04 ticagrelor [From Brilinta] AdvReac Dyspnea / Verified 11/15/22 13:04 SOB Home Medications Medication Instructions Recorded Confirmed Type pregabalin 150 mg capsule (Lyrica) 150 mg PO HS 03/12/20 11/14/22 History aspirin 81 mg chewable tablet 81 mg PO DAILY@0800 #30 tabs 03/14/20 11/14/22 Rx (Children's Aspirin) atorvastatin 40 mg tablet 40 mg PO DAILY #30 tabs 03/14/20 11/14/22 Rx Hydromorphone Pain Pump 4.488 mg implant DAILY pain 04/30/20 11/14/22 History cholecalciferol (vitamin D3) 25 25 mcg PO DAILY 04/30/20 11/14/22 History mcg (1,000 unit) capsule (Vitamin D3) magnesium 500 mg tablet 500 mg PO DAILY 04/30/20 11/14/22 History vitamin B complex 1 cap PO DAILY 04/30/20 11/14/22 History cyanocobalamin (vitamin B-12) 1,000 mcg PO DAILY 08/12/21 11/14/22 History 1,000 mcg capsule clopidogrel 75 mg tablet 75 mg PO QAM #30 tabs 09/25/21 11/14/22 Rx lisinopril 10 mg tablet 10 mg PO HS #90 tabs 07/19/22 11/14/22 Rx duloxetine 60 mg capsule,delayed 60 mg PO DAILY #90 caps 11/12/22 11/14/22 Rx release (Cymbalta) brimonidine 0.2 %-timolol 0.5 % 1 drp EACH EYE Q12H 11/14/22 11/14/22 History eye drops carbidopa 25 mg-levodopa 100 mg 3 tablet PO TID 11/14/22 11/14/22 History tablet d-mannose 500 mg capsule 500 mg PO DAILY 11/14/22 11/14/22 History Laboratory Tests 11/14/22 11/14/22 11/15/22 14:33 20:56 02:13 WBC RBC Hgb 11.1 L g/dL 10.4 L g/dL 9.7 L g/dL (14.0-18.0) (14.0-18.0) (14.0-18.0) Hct 35.0 L % 32.7 L % 29.9 L % (42.0-52.0) (42.0-52.0) (42.0-52.0) MCV MCH MCHC RDW Plt Count MPV Sodium Potassium Chloride Carbon Dioxide Anion Gap BUN Creatinine Estim Creat Clear Calc Estimated GFR Glucose Calcium Magnesium Iron TIBC % Saturation Transferrin Ferritin Vitamin B12 Folate 11/15/22 11/15/22 06:08 11:59 WBC 6.6 K/mm3 (4.5-10.0) RBC 3.42 L M/mm3 (4.6-6.20) Hgb 9.7 L g/dL 9.2 L g/dL (14.0-18.0) (14.0-18.0) Hct 30.3 L % 29.3 L % (42.0-52.0) (42.0-52.0) MCV 88.6 fl (80-100) MCH 28.4 pg (26-34) MCHC 32.0 g/dl (32-36) RDW 13.3 % (11.5-14.5) Plt Count 178 k/mm3 (150-375) MPV 10.3 fl (7.4-10.4) Sodium 136 L mmol/L (137-145) Potassium 3.9 mmol/L (3.4-5.0) Chloride 104 mmol/L (98-107) Carbon Dioxide 30 mmol/L (22-30) Anion Gap 2 L mmol/L (8-16) BUN 28 H mg/dL (9-20) Creatinine 0.60 L mg/dL (0.7-1.3) Estim Creat Clear Calc 107 ml/min Estimated GFR > 60 (59 - ) Glucose 97 mg/dL (65-110) Calcium 7.9 L mg/dL (8.4-10.2) Magnesium 2.0 mg/dL (1.6-2.3) Iron 66 ug/dL (49-181) TIBC 299 ug/dL (265-497) % Saturation Pending Transferrin 201 L mg/dL (206-381) Ferritin 22.50 ng/mL (11.1-264) Vitamin B12 481.0 pg/mL (239-931) Folate > 20.0 H ng/mL (2.76->
--- NOTE | 2022-11-15 16:00 | P.PNIM_ITS ---
Progress Note: A&P Assessment and Plan (1) GI bleed: Qualifiers: GI bleed type/associated pathology: gastric ulcer Qualified Code(s): K25.4 - Chronic or unspecified gastric ulcer with hemorrhage Code(s): K92.2 - Gastrointestinal hemorrhage, unspecified Status: Acute Assessment and Plan: * Present with complaints of coffee-ground emesis, and abdominal pain * GI has been consulted * Seems to be mostly related to medications, Plavix, aspirin, excedrin use * No reported alcohol use * H/H trending down currently at 9.7/30.3 * EGD Multiple gastric ulcers within the gastric system * Anemia labs ordered * Continue protonix 40mg IV BID (2) Chronic pain syndrome: Code(s): G89.4 - Chronic pain syndrome Status: Acute Assessment and Plan: * pain pump present and not sustaining pain * excessive NSAIDS use * Education given to patient * Treat as indicated (3) Coronary artery disease: Qualifiers: Coronary Disease-Associated Artery/Lesion type: [place] artery [place] vs. transplanted heart: [place] heart Associated angina: without angina Qualified Code(s): I25.10 - Atherosclerotic heart disease of [place] coronary artery without angina pectoris Code(s): I25.10 - Atherosclerotic heart disease of [place] coronary artery without angina pectoris Status: Acute Assessment and Plan: * coronary stent was placed in September 2021. * Aspirin and Plavix on hold for now given GI bleeding. * restart when appropriate and recommended by GI (4) Essential (primary) hypertension: Code(s): I10 - Essential (primary) hypertension Status: Chronic Assessment and Plan: * Current BP is 107/65 * Continue home medications lisinopril 10mg PO daily * trend bp * adjust therapy as indicated (5) Parkinsonism: Qualifiers: Parkinsonism type: Parkinson's disease Qualified Code(s): G20 - Parkinson's disease Code(s): G20 - Parkinson's disease Status: Acute Assessment and Plan: * Continue carbidopa-levodopa. Time Spent With Patient Time: 50 minutes Time with patient: Greater than 35 minutes Subjective Date/time seen: 11/15/22 08:52 Interval history: 11/15/22 1600 patient just arrived back from the GI lab. It was noted that patient was having notable hypotension in the GI lab. Currently patient feels okay and is stable. No signs or symptoms of bleeding. He denies any chest pain, shortness of breath, nausea, vomiting, diarrhea constipation. , daughter and gr anddaughter were present. All questions and plan of care was updated and patient remained stable at this time. 11/14/22? 13:30 This is a very pleasant 72-year-old male with parkinsonism, coronary artery disease with history of stents, hypertension, and chronic back pain who presented to the emergency department via EMS from home for evaluation of epigastric pain and vomiting. Patient provides the following history. He awoke in the middle of the night with severe gas-like discomfort in the epigastric region radiating through to the back associated with nausea, sweats, and bloating. He took Tums and drank some root beer and was able to belch a bit without improvement. Shortly thereafter he had a large episode of what appeared to be coffee-ground emesis. With further questioning he endorses intermittent epigastric discomfort over the past month or so for which he has been taking increasing
--- NOTE | 2022-11-15 16:00 | PM.IMPN ---
Progress Note: A&P Assessment and Plan (1) GI bleed: Qualifiers: GI bleed type/associated pathology: gastric ulcer Qualified Code(s): K25.4 - Chronic or unspecified gastric ulcer with hemorrhage Code(s): K92.2 - Gastrointestinal hemorrhage, unspecified Status: Acute Assessment and Plan: Present with complaints of coffee-ground emesis, and abdominal pain GI has been consulted Seems to be mostly related to medications, Plavix, aspirin, excedrin use No reported alcohol use H/H trending down currently at 9.7/30.3 EGD Multiple gastric ulcers within the gastric system Anemia labs ordered Continue protonix 40mg IV BID (2) Chronic pain syndrome: Code(s): G89.4 - Chronic pain syndrome Status: Acute Assessment and Plan: pain pump present and not sustaining pain excessive NSAIDS use Education given to patient Treat as indicated (3) Coronary artery disease: Qualifiers: Coronary Disease-Associated Artery/Lesion type: [place] artery [place] vs. transplanted heart: [place] heart Associated angina: without angina Qualified Code(s): I25.10 - Atherosclerotic heart disease of [place] coronary artery without angina pectoris Code(s): I25.10 - Atherosclerotic heart disease of [place] coronary artery without angina pectoris Status: Acute Assessment and Plan: coronary stent was placed in September 2021. Aspirin and Plavix on hold for now given GI bleeding. restart when appropriate and recommended by GI (4) Essential (primary) hypertension: Code(s): I10 - Essential (primary) hypertension Status: Chronic Assessment and Plan: Current BP is 107/65 Continue home medications lisinopril 10mg PO daily trend bp adjust therapy as indicated (5) Parkinsonism: Qualifiers: Parkinsonism type: Parkinson's disease Qualified Code(s): G20 - Parkinson's disease Code(s): G20 - Parkinson's disease Status: Acute Assessment and Plan: Continue carbidopa-levodopa. Time Spent With Patient Time: 50 minutes Time with patient: Greater than 35 minutes Subjective Date/time seen: 11/15/22 08:52 Interval history: 11/15/22 1600 patient just arrived back from the GI lab. It was noted that patient was having notable hypotension in the GI lab. Currently patient feels okay and is stable. No signs or symptoms of bleeding. He denies any chest pain, shortness of breath, nausea, vomiting, diarrhea constipation. , daughter and granddaughter were present. All questions and plan of care was updated and patient remained stable at this time. 11/14/22? 13:30 This is a very pleasant 72-year-old male with parkinsonism, coronary artery disease with history of stents, hypertension, and chronic back pain who presented to the emergency department via EMS from home for evaluation of epigastric pain and vomiting. Patient provides the following history. He awoke in the middle of the night with severe gas-like discomfort in the epigastric region radiating through to the back associated with nausea, sweats, and bloating. He took Tums and drank some root beer and was able to belch a bit without improvement. Shortly thereafter he had a large episode of what appeared to be coffee-ground emesis. With further questioning he endorses intermittent epigastric discomfort over the past month or so for which he has been taking increasing doses of Tums. He is on aspirin and clopidogrel and recently he has been taking an extra dose or so of Excedrin for acute on chronic back pain. He has a pain pump in place but he has been more active recently and that has seemed to aggravate his pain. He has no known history of peptic ulcers and has not had issues with esophagitis or gastritis. He had a normal bowel movement yesterday. He is not currently having any significant abdominal or epigastric discomfort. He den
[2022-11-15] MEDS: lisinopriL 10 MG TABLET PO (21:09)
[2022-11-15] MEDS: ACETAMINOPHEN 325 MG TABLET 650 MG PO (21:10)
[2022-11-15] MEDS: PREGABALIN (*CRX) 75 MG CAPSULE 150 MG PO (21:10)
[2022-11-15 21:34] LABS: Hematocrit 29.6 % (42.0-52.0); Hemoglobin 9.5 g/dL (14.0-18.0)
[2022-11-16 04:52] VITALS: BP 107/65; PULSE 55; RESP 16; TEMP 35.9; O2SAT 100
[2022-11-16 06:25] LABS: Hematocrit 29.3 % (42.0-52.0); Hemoglobin 9.2 g/dL (14.0-18.0)
--- NOTE | 2022-11-16 07:04 | WPDANESPN ---
Anes - Prog Note Post-Op Date/Time: 11/16/22 07:04 Cardiovascular status: normal Respiratory status: normal Airway patency: baseline Mental status: baseline Post-Op hydration status: normal Vital Signs: Last Vital Signs Temp 96.7 F L 11/16/22 04:52 Pulse 55 L 11/16/22 04:52 Resp 16 11/16/22 04:52 BP 107/65 11/16/22 04:52 Pulse Ox 100 11/16/22 04:52 O2 Del Method Room Air 11/15/22 14:59 Pain Score (VAS): 0 I/O: Intake & Output 11/15/22 11/15/22 11/16/22 15:59 23:59 07:59 Intake Total 500 1334 211 Output Total 950 650 Balance 500 384 -439 Laboratory Tests 11/16/22 06:00 11/15/22 06:08 11/15/22 11/15/22 11/15/22 06:08 11:59 21:29 Hgb 9.2 L 9.5 L Hct 29.3 L 29.6 L Iron 66 TIBC 299 % Saturation 22 Transferrin 201 L Ferritin 22.50 Vitamin B12 481.0 Folate > 20.0 H 11/16/22 06:00 Hgb 9.2 L Hct 29.3 L Iron TIBC % Saturation Transferrin Ferritin Vitamin B12 Folate Post-procedural complaints: none Patient Feedback: Patient satisfied with anesthetic care.
--- NOTE | 2022-11-16 08:45 | P.DS_ITS ---
DS: Admitting Diagnosis Discharge Date 11/16/22 0845 Admitting Diagnosis acute GI bleed with multiple gastric ulcers, gastritis, esophagitis DS: Discharge Diagnosis Discharge Diagnosis (1) GI bleed: Qualifiers: GI bleed type/associated pathology: gastric ulcer Qualified Code(s): K25.4 - Chronic or unspecified gastric ulcer with hemorrhage Code(s): K92.2 - Gastrointestinal hemorrhage, unspecified Status: Acute Assessment and Plan: * Present with complaints of coffee-ground emesis, and abdominal pain * GI has been consulted * Seems to be mostly related to medications, Plavix, aspirin, excedrin use * No reported alcohol use * H/H trending down currently at 9.7/30.3 * EGD Multiple gastric ulcers within the gastric system * Anemia labs ordered * Continue protonix 40mg IV BID (2) Chronic pain syndrome: Code(s): G89.4 - Chronic pain syndrome Status: Acute Assessment and Plan: * pain pump present and not sustaining pain * excessive NSAIDS use * Education given to patient * Treat as indicated (3) Coronary artery disease: Qualifiers: Associated angina: without angina Coronary Disease-Associated Artery/Lesion type: [place] artery [place] vs. transplanted heart: tribe heart Qualified Code(s): I25.10 - Atherosclerotic heart disease of tribe coronary artery without angina pectoris Code(s): I25.10 - Atherosclerotic heart disease of tribe coronary artery without angina pectoris Status: Acute Assessment and Plan: * coronary stent was placed in September 2021. * Aspirin and Plavix on hold for now given GI bleeding. * restart when appropriate and recommended by GI (4) Essential (primary) hypertension: Code(s): I10 - Essential (primary) hypertension Status: Chronic Assessment and Plan: * Current BP is 107/65 * Continue home medications lisinopril 10mg PO daily * trend bp * adjust therapy as indicated (5) Parkinsonism: Qualifiers: Parkinsonism type: Parkinson's disease Qualified Code(s): G20 - Parkinson's disease Code(s): G20 - Parkinson's disease Status: Acute Assessment and Plan: * Continue carbidopa-levodopa. (6) Gastritis: Qualifiers: Chronicity: acute Gastritis bleeding: without bleeding Gastritis type: other gastritis Qualified Code(s): K29.00 - Acute gastritis without bleeding Code(s): K29.70 - Gastritis, unspecified, without bleeding Status: Acute Assessment and Plan: plan as above (7) Esophagitis: Code(s): K20.90 - Esophagitis, unspecified without bleeding Status: Acute Assessment and Plan: plan as above DS: Summary Hospital Course Hospital Course: patient is 72-year-old male with a past medical history of parkinsonism, coronary artery disease who presented to the ED with complaints of coffee-ground emesis. Patient does have chronic pain and has been supplementing with Excedrin and ibuprofen. Hemoglobin upon arrival was 11.8 is currently 9.2. in the ED gastric lavage was performed and did show some bleeding. GI has been consulted patient was taken for an EGD. Esophagitis with erosive, ulcerative gastritis seen in the stomach with multiple ulcers however none of them were bleeding. Patient was started on IV Protonix. Currently labs and vital signs remained stable. Patient will continue the Protonix at home. Patient has been edu
--- NOTE | 2022-11-16 08:45 | PM.DS ---
DS: Admitting Diagnosis Discharge Date 11/16/22 0845 Admitting Diagnosis acute GI bleed with multiple gastric ulcers, gastritis, esophagitis DS: Discharge Diagnosis Discharge Diagnosis (1) GI bleed: Qualifiers: GI bleed type/associated pathology: gastric ulcer Qualified Code(s): K25.4 - Chronic or unspecified gastric ulcer with hemorrhage Code(s): K92.2 - Gastrointestinal hemorrhage, unspecified Status: Acute Assessment and Plan: Present with complaints of coffee-ground emesis, and abdominal pain GI has been consulted Seems to be mostly related to medications, Plavix, aspirin, excedrin use No reported alcohol use H/H trending down currently at 9.7/30.3 EGD Multiple gastric ulcers within the gastric system Anemia labs ordered Continue protonix 40mg IV BID (2) Chronic pain syndrome: Code(s): G89.4 - Chronic pain syndrome Status: Acute Assessment and Plan: pain pump present and not sustaining pain excessive NSAIDS use Education given to patient Treat as indicated (3) Coronary artery disease: Qualifiers: Associated angina: without angina Coronary Disease-Associated Artery/Lesion type: [place] artery [place] vs. transplanted heart: [place] heart Qualified Code(s): I25.10 - Atherosclerotic heart disease of [place] coronary artery without angina pectoris Code(s): I25.10 - Atherosclerotic heart disease of [place] coronary artery without angina pectoris Status: Acute Assessment and Plan: coronary stent was placed in September 2021. Aspirin and Plavix on hold for now given GI bleeding. restart when appropriate and recommended by GI (4) Essential (primary) hypertension: Code(s): I10 - Essential (primary) hypertension Status: Chronic Assessment and Plan: Current BP is 107/65 Continue home medications lisinopril 10mg PO daily trend bp adjust therapy as indicated (5) Parkinsonism: Qualifiers: Parkinsonism type: Parkinson's disease Qualified Code(s): G20 - Parkinson's disease Code(s): G20 - Parkinson's disease Status: Acute Assessment and Plan: Continue carbidopa-levodopa. (6) Gastritis: Qualifiers: Chronicity: acute Gastritis bleeding: without bleeding Gastritis type: other gastritis Qualified Code(s): K29.00 - Acute gastritis without bleeding Code(s): K29.70 - Gastritis, unspecified, without bleeding Status: Acute Assessment and Plan: plan as above (7) Esophagitis: Code(s): K20.90 - Esophagitis, unspecified without bleeding Status: Acute Assessment and Plan: plan as above DS: Summary Hospital Course Hospital Course: patient is 72-year-old male with a past medical history of parkinsonism, coronary artery disease who presented to the ED with complaints of coffee-ground emesis. Patient does have chronic pain and has been supplementing with Excedrin and ibuprofen. Hemoglobin upon arrival was 11.8 is currently 9.2. in the ED gastric lavage was performed and did show some bleeding. GI has been consulted patient was taken for an EGD. Esophagitis with erosive, ulcerative gastritis seen in the stomach with multiple ulcers however none of them were bleeding. Patient was started on IV Protonix. Currently labs and vital signs remained stable. Patient will continue the Protonix at home. Patient has been educated about the use of NSAIDs. Currently patient has no complaints including chest pain, shortness a breath, nausea, vomiting, diarrhea or constipation. Patient also has no signs or symptoms of bleeding at this time. Patient is stable for discharge for labs and vital signs. Patient is to follow-up with GI in 3-4 months. Spoke with the Fely Bradshaw [employer] for cardiology who suggested stopping the plavix and having the patient follow up with them in the office for further instruct
[2022-11-16] MEDS: CARBIDOPA/LEVODOPA 25/100 MG TABLET 3 TABLET PO (08:53)
[2022-11-16] MEDS: BRIMONIDINE TARTRATE 0.2% OP SOLN 5 ML BTL 1 DROP EACH EYE (08:54)
[2022-11-16] MEDS: PANTOPRAZOLE SODIUM IV 40 MG VIAL IV PUSH (08:54)
[2022-11-16] MEDS: TIMOLOL MALEATE 0.5% OP SOLN 5 ML BOTTLE 1 DROP EACH EYE (08:54)
[2022-11-16] MEDS: DULoxetine HCL 60 MG CAPSULE.DR PO (08:54)
[2022-11-16 09:02] LABS: Alanine Aminotransferase 12 U/L (6-50); Alkaline Phosphatase 59 U/L (38-126); Anion Gap 2 mmol/L (8-16); Aspartate Amino Transferase 51 U/L (17-59); Bilirubin,Total 0.4 mg/dL (0.2-1.3); Blood Urea Nitrogen 20 mg/dL (9-20); Calcium 7.8 mg/dL (8.4-10.2); Carbon Dioxide 31 mmol/L (22-30); Chloride 104 mmol/L (98-107); Estimated CRCL calculation 107 ml/min; Estimated Glomerular Filt Rate > 60; Glucose 93 mg/dL (65-110); Sodium 137 mmol/L (137-145)
--- NOTE | 2022-11-16 09:49 | PM.SD2 ---
Same Day Admit/Disch: HPI History of Present Illness Chief complaint: Upper GI Bleed Narrative: Joe Wellington is a 72 year old male [facility] Past Medical History Medical History (Updated 11/16/22 @ 09:48 by REBECCA Barry) Actinic keratoses Chronic pain syndrome Pain pump. Coffee ground emesis Coronary artery disease Depression Essential (primary) hypertension Fracture of lumbar spine History of seizure Attributed to tramadol. Myocardial infarction Neurogenic bladder Parkinsonism Pelvic fracture Traumatic brain injury Urethral stricture Surgical History Surgical History (Updated 11/14/22 @ 15:14 by Aleida Jerez PA-C) History of appendectomy History of cardiac catheterization 03/13/2020, 03/20/2021, 09/11/2021 History of cholecystectomy History of coronary artery stent placement History of dilation of urethra History of esophagogastroduodenoscopy (EGD) History of lumbar surgery History of partial colectomy History of tonsillectomy Status post glaucoma surgery Family History Family History (Updated 11/14/22 @ 15:15 by Aleida Jerez PA-C) Mother Family history of cardiovascular disease Diabetes mellitus Patient's mother is Father Patient's father is Sibling Cancer Breast cancer Son Melanoma Thyroid cancer Social History Social History (Updated 11/14/22 @ 15:17 by Aleida Jerez PA-C) Social History: Surrogate medical decision maker: Madan Wellington (son) or Stefanie Wellington (spouse). Code status: Full code. Smoking packs per day: 1 Smoking cigarettes per day: 20.0 Years smoked: 1.5 Smoking pack-years: 1.50 Smoking status: Former smoker Tobacco type: cigarettes Second hand tobacco smoke exposure: No Alcohol intake: former Substance use: never Substance use type: does not use Lack of Transportation: No Lack of Food: Never True Current Housing: I Have Housing Concerned About Future Housing: No Difficulty Paying Gas/Electric Bills: No Difficulty Paying for Meds: No Currently Unemployed: No Education: Bachelor's Degree Difficulty w/ Childcare or Family Care: No Living arrangements: with family Spiritual care concerns: No Same Day Admit/Disch: Med Pre-admit Medications Home Medications Medication Instructions Recorded Confirmed Type pregabalin 150 mg capsule (Lyrica) 150 mg PO HS 03/12/20 11/14/22 History aspirin 81 mg chewable tablet 81 mg PO DAILY@0800 #30 tabs 03/14/20 11/14/22 Rx (Children's Aspirin) atorvastatin 40 mg tablet 40 mg PO DAILY #30 tabs 03/14/20 11/14/22 Rx Hydromorphone Pain Pump 4.488 mg implant DAILY pain 04/30/20 11/14/22 History cholecalciferol (vitamin D3) 25 25 mcg PO DAILY 04/30/20 11/14/22 History mcg (1,000 unit) capsule (Vitamin D3) magnesium 500 mg tablet 500 mg PO DAILY 04/30/20 11/14/22 History vitamin B complex 1 cap PO DAILY 04/30/20 11/14/22 History cyanocobalamin (vitamin B-12) 1,000 mcg PO DAILY 08/12/21 11/14/22 History 1,000 mcg capsule clopidogrel 75 mg tablet 75 mg PO QAM #30 tabs 09/25/21 11/14/22 Rx lisinopril 10 mg tablet 10 mg PO HS #90 tabs 07/19/22 11/14/22 Rx duloxetine 60 mg capsule,delayed 60 mg PO DAILY #90 caps 11/12/22 11/14/22 Rx release (Cymbalta) brimonidine 0.2 %-timolol 0.5 % 1 drp EACH EYE Q12H 11/14/22 11/14/22 History eye drops carbidopa 25 mg-levodopa 100 mg 3 tablet PO TID 11/14/22 11/14/22 History tablet d-mannose 500 mg capsule 500 mg PO DAILY 11/14/22 11/14/22 History DS: Data Data Completed and Pending Pending studies at discharge: Pending at discharge 11/15/22 14:18 Surgical [PTH] Routine Labs on day of discharge: Labs from last 24 hours 11/16/22 11/15/22 11/15/22 06:00 21:29 11:59 Hgb 9.2 L 9.5 L 9.2 L Hct 29.3 L 29.6 L 29.3 L Sodium 137 Potassium 4.0 Chloride 104 Carbon Dioxide 31 H Anion Gap 2 L BUN 20 Creatinine 0.60 L Estim Creat
--- NOTE | 2022-11-16 11:37 | PC.NURSE ---
Pt is A&O male who is able to participate and contribute in plan of care. Pt has reported no N/V this shift. Pt was educated by provider about procedure that was performed. Pt is discharging home with . Pt reports no pain and expresses no needs at this time. Will continue to monitor pt until discharge.
--- NOTE | 2022-11-16 14:28 | PC.NURSE ---
Pt was wheeled to car. Pt IV was removed. Pt discharged home with .
== END 2022-11-16 13:05 | disposition home or self-care (01) ==
LOC: ANHED 08:22 → ANH3MEDSUR 11:09
PROVIDERS: Internal Medicine Gastroenterology; Nurse Practitioner; Physician Assistant; Admitting Provider Internal Medicine; Emergency Provider Emergency Medicine; PCP Family Medicine; Visit Provider Chiropractor
PROC: 0DJ08ZZ Inspection of Upper Intestinal Tract, Via Natural or Artificial Opening Endoscopic (ICD-10-PCS; CPT 43235; principal; 2022-11-15 14:15)
DX: K21.00 Gastro-esophageal reflux disease with esophagitis, without bleeding (principal); K29.70 Gastritis, unspecified, without bleeding; G89.4 Chronic pain syndrome; I25.10 Atherosclerotic heart disease of native coronary artery without angina pectoris; Z95.1 Presence of aortocoronary bypass graft; F32.A Depression, unspecified; I10 Essential (primary) hypertension; D64.9 Anemia, unspecified; I25.2 Old myocardial infarction; N31.9 Neuromuscular dysfunction of bladder, unspecified; G20 Parkinson's disease; Z87.820 Personal history of traumatic brain injury; Z87.891 Personal history of nicotine dependence; Z79.891 Long term (current) use of opiate analgesic; Z79.82 Long term (current) use of aspirin; Z79.02 Long term (current) use of antithrombotics/antiplatelets; Z79.899 Other long term (current) drug therapy
CPT/HCPCS: 43239; 36415; 80048; 80053; 82607; 82728; 82746; 83540; 83550; 83735; 84466; 85014; 85018; 85025; 85027; 85610; 85730; 86850; 86900; 86901; 87081; 88305; 88342; 96361; 96374; 96375; 96376; 99285; A9270; C9113; G0378; J2001; J2060; J2405; J2704; J7030; J7040; J7120

== ENCOUNTER → 2023-01-04 10:15 | Outpatient (CLI) | payer MEDICARE, OTHER, SELFPAY ==
--- NOTE | ~2023-01-04 | XR_ITS ---
Left Shoulder Technique: AP and scapular Y views were obtained. Clinical History: Pain Findings: No fracture or dislocation is seen. Osseous alignment is anatomic. There is mild degenerati ve change of the glenohumeral joint and AC joint. Soft tissues are unremarkable. Impression: Mild degenerative change, as above. No fracture or dislocation seen. Reviewed, dictated and finalized at location . Impression: Mild degenerative change, as above. No fracture or dislocation seen.
== END ==
PROVIDERS: PCP Family Medicine; Visit Provider Nurse Practitioner Family
DX: M19.012 Primary osteoarthritis, left shoulder (principal)
CPT/HCPCS: 73030

== ENCOUNTER 2023-01-25 19:48 | Emergency (ER) | payer MEDICARE, OTHER, SELFPAY ==
--- NOTE | ~2023-01-25 | XR_ITS ---
EXAMINATION: XR chest 2V Exam Date/Time: 01/25/2023 20:25 CDT HISTORY: Weakness, shortness of breath, multiple ground level falls Comparison: 12/10/2021. RESULT: Lines, tubes, and devices: None. Lungs and pleura: Low volumes with crowding. Streaky bibasilar atelectasis/scar. Cardiomediastinal silhouette: Stable. Other: No acute osseous or upper abdominal finding. IMPRESSION: No acute cardiopulmonary process. Reviewed, dictated and finalized at location K.
[2023-01-25 20:01] VITALS: BP 167/83; PULSE 65; RESP 16; TEMP 37.1; O2SAT 100
--- NOTE | 2023-01-25 20:03 | ECG_ITS ---
Measurements Intervals [place] Rate: 62 P: 22 AR: 197 QRS: -3 QRSD: 94 T: 7 QT: 386 QTc: 393 Interpretive Statements SINUS RHYTHM CONSIDER INFERIOR INFARCT, AGE INDETERMINATE BASELINE ARTIFACT- II, III, AVF ABNORMAL ECG COMPARED TO ECG 12/10/2021 01:02:27 NO SIGNIFICANT CHANGES Electronically Signed On 01-25-2023 20:05:24 CDT by Yusuf Deluca D.O.
--- NOTE | 2023-01-25 20:30 | ED.GENADULT ---
HPI - General Adult General Chief complaint: Weakness <Jim Friend PA-C - Last Filed: 01/26/23 02:50> Stated complaint: GEN WKNS <Jim Friend PA-C - Last Filed: 01/26/23 02:50> Time Seen by Provider: 01/25/23 20:20 <Jim Friend PA-C - Last Filed: 01/26/23 02:50> Source: patient <TONJA Webster Last Filed: 01/26/23 02:50> Mode of arrival: ambulatory <TONJA Webster Last Filed: 01/26/23 02:50> Limitations: no limitations <Jim Friend PA-C - Last Filed: 01/26/23 02:50> History of Present Illness HPI narrative: This is a 72-year-old male with PMH of CAD, Parkinson's who presents to the ED via EMS with chief complaint of generalized weakness ongoing for the past couple of days. Patient reports that he has had episodes of feeling like his legs become weak and he falls down. He states this happens sometimes with the Parkinson's but feels that it is worse in the last couple of days. Denies any LOC or head injury. Denies any chest pain or shortness of breath. States he has just been feeling a little off the last few days. He states today he had an episode where he was sitting outside and got very cool and clammy. States that he completely drenched his shirt in sweat. Denies abdominal pain, nausea, vomiting, problems with bowel movements. <Jim Friend PA-C - Last Filed: 01/26/23 02:50> Related Data Home medications: Home Medications Medication Instructions Recorded Confirmed pregabalin 150 mg capsule (Lyrica) 150 mg PO HS 03/12/20 02/02/23 Hydromorphone Pain Pump 4.488 mg implant DAILY pain 04/30/20 02/02/23 cholecalciferol (vitamin D3) 25 25 mcg PO DAILY 04/30/20 02/02/23 mcg (1,000 unit) capsule (Vitamin D3) magnesium 500 mg tablet 500 mg PO DAILY 04/30/20 02/02/23 vitamin B complex 1 cap PO DAILY 04/30/20 02/02/23 cyanocobalamin (vitamin B-12) 1,000 mcg PO DAILY 08/12/21 02/02/23 1,000 mcg capsule brimonidine 0.2 %-timolol 0.5 % 1 drp EACH EYE Q12H 11/14/22 02/02/23 eye drops carbidopa 25 mg-levodopa 100 mg 3 tablet PO TID 11/14/22 02/02/23 tablet d-mannose 500 mg capsule 500 mg PO DAILY 11/14/22 02/02/23 <Jim Friend PA-C - Last Filed: 01/26/23 02:50> Allergies/adverse reactions: Allergies Allergy/AdvReac Type Severity Reaction Status Date / Time tramadol Allergy Mild SEIZURE Verified 02/02/23 10:36 ticagrelor [From Brilinta] AdvReac Dyspnea / Verified 02/02/23 10:36 SOB <Jim Friend PA-C - Last Filed: 01/26/23 02:50> [facility] Past Medical History Medical History: Medical History Actinic keratoses Chronic pain syndrome Pain pump. Coffee ground emesis Coronary artery disease Depression Essential (primary) hypertension Fracture of lumbar spine History of seizure Attributed to tramadol. Myocardial infarction Neurogenic bladder Parkinsonism Pelvic fracture Traumatic brain injury Urethral stricture <Jim Friend PA-C - Last Filed: 01/26/23 02:50> Surgical History Surgical History: Surgical History History of appendectomy History of cardiac catheterization 03/13/2020, 03/20/2021, 09/11/2021 History of cholecystectomy History of coronary artery stent placement History of dilation of urethra History of esophagogastroduodenoscopy (EGD) History of lumbar surgery History of partial colectomy History of tonsillectomy Status post glaucoma surgery <Jim Friend PA-C - Last Filed: 01/26/23 02:50> Family History Family History: Family History Mother Family history of cardiovascular disease Diabetes mellitus Patient's mother is Father Patient's father is Sibling Cancer Breast cancer Son Melanoma Thyroid cancer <Jim Friend PA-C - Last Filed: 01/26/23 02:50> Social History Soc
[2023-01-25 21:22] LABS: Basophils Percent Auto 0.5 % (0.2-1.2); Eosinophils Absolute Auto 0.2 K/mm3 (0-0.3); Hematocrit 42.4 % (42.0-52.0); Hemoglobin 12.9 g/dL (14.0-18.0); Immature Granulocyte Absolute 0.02 K/mm3 (0.00-0.031); Immature Granulocyte Percent A 0.3 % (0-0.5); Lymphocytes Absolute Auto 0.99 K/mm3 (0.9-3.2); Lymphocytes Percent Auto 15.5 % (18.3-44.2); Mean Corpuscular HGB Conc 30.4 g/dl (32-36); Mean Corpuscular Hemoglobin 26.7 pg (26-34); Mean Corpuscular Volume 87.8 fl (80-100); Mean Platelet Volume 9.6 fl (7.4-10.4); Monocytes Absolute Auto 0.4 K/mm3 (0.1-0.6); Monocytes Percent Auto 6.3 % (2.6-8.5); Neutrophils Absolute Auto 4.8 K/mm3 (1.3-6.7); Neutrophils Percent Auto 74.4 % (45.5-73.1); Platelet Count Result 176 k/mm3 (150-375); Red Blood Count 4.83 M/mm3 (4.6-6.20); Red Cell Distribution Width 14.8 % (11.5-14.5); White Blood Count 6.4 K/mm3 (4.5-10.0)
[2023-01-25 21:32] LABS: Alanine Aminotransferase 13 U/L (6-50); Albumin Level 3.7 g/dL (3.5-5.1); Alkaline Phosphatase 91 U/L (38-126); Anion Gap 6 mmol/L (8-16); Aspartate Amino Transferase 31 U/L (17-59); Bilirubin,Total 0.5 mg/dL (0.2-1.3); Blood Urea Nitrogen 14 mg/dL (9-20); Calcium 8.5 mg/dL (8.4-10.2); Carbon Dioxide 32 mmol/L (22-30); Chloride 98 mmol/L (98-107); Estimated CRCL calculation 107 ml/min; Estimated Glomerular Filt Rate > 60; Glucose 120 mg/dL (65-110); Potassium 3.6 mmol/L (3.4-5.0); Sodium 136 mmol/L (137-145)
[2023-01-25 21:57] LABS: Magnesium 2.1 mg/dL (1.6-2.3)
[2023-01-25 22:09] LABS: Troponin I < 0.012 ng/mL (0.000-0.034)
--- NOTE | 2023-01-25 22:39 | PC.NURSE ---
called down to lab about the urine not being collected yet after it had been sent down, they stated that the urine analyzer is broken.
[2023-01-25 22:53] LABS: Appearance Urine Clear (Clear); Bilirubin Urine Negative (Negative); Blood Urine Negative (Negative); Color Urine Dark Yellow (Yellow); Glucose Urine UA Negative (Negative); Ketones Urine Trace mg/dL (Negative); Leukocyte Esterase Ur Negative LEU/UL (Negative); Nitrate Urine Negative (Negative); Protein Urine Negative (Negative); Urobilinogen Urine 0.2 mg/dL (<2.0); pH Urine 5.5 (5.0-9.0)
--- NOTE | 2023-01-25 23:00 | PC.NURSE ---
This RN assumed care of patient.
[2023-01-25 23:02] LABS: Add Urine Microscopic? NO
== END 2023-01-25 23:29 | disposition home or self-care (01) ==
PROVIDERS: Emergency Medicine; Emergency Provider Physician Assistant; PCP Family Medicine
DX: E86.0 Dehydration (principal); R55 Syncope and collapse; G20 Parkinson's disease; I25.10 Atherosclerotic heart disease of native coronary artery without angina pectoris; I10 Essential (primary) hypertension; I25.2 Old myocardial infarction; N31.9 Neuromuscular dysfunction of bladder, unspecified; G89.4 Chronic pain syndrome; Z97.8 Presence of other specified devices; Z87.820 Personal history of traumatic brain injury; Z95.5 Presence of coronary angioplasty implant and graft; Z87.891 Personal history of nicotine dependence; Z90.49 Acquired absence of other specified parts of digestive tract; R94.31 Abnormal electrocardiogram [ECG] [EKG]
CPT/HCPCS: 36415; 71046; 80053; 81003; 83735; 84484; 85025; 93005; 99284

== ENCOUNTER 2023-02-23 00:26 | Day surgery (SDC) | payer MEDICARE, OTHER, SELFPAY ==
[2023-02-08 14:19] VITALS: BMI 24.9
[2023-02-23 08:24] VITALS: BP 114/86; PULSE 88; RESP 20; TEMP 36.2; O2SAT 95
[2023-02-23] MEDS: LACTATED RINGERS 1,000 ML 150 ML IV CONT (08:34)
--- NOTE | 2023-02-23 08:35 | PM.HPGS ---
History of Present Illness History of Present Illness Consent: Risks, benefits, and alternatives have been discussed and questions answered. Patient agrees to proceed with procedure. Chief complaint: gastritis Narrative: Joe Wellington is a 72 year old male with coffee ground emesis that required hospitalization 11/30, egd showed severe ulcerative gastritis, bx negative for h pylori, doing better now with ppi daily Review of Systems Constitutional: Constitutional: Denies headache(s) and Denies weakness Eyes: Eyes: Denies blurry vision ENT: Reports Normal hearing present, Denies headache(s) and Denies neck pain Cardiovascular: Cardiovascular: Denies chest pain and Denies dyspnea Respiratory: Respiratory: Denies dyspnea Gastrointestinal: Gastrointestinal: Reports no additional gastrointestinal complaints Genitourinary: Genitourinary: Denies dysuria Musculoskeletal: Musculoskeletal: Denies neck pain Integumentary/Breasts: Skin/Breast: Denies dry skin Neurologic: Reports Normal hearing present, Denies headache(s) and Denies weakness Psychiatric: Psychiatric: Denies anxiety Endocrine: Endocrine: Denies change in body appearance Hematologic/Lymphatic: Hematologic/Lymphatic: Denies easy bleeding Allergic/Immunologic: Allergic/Immunologic: Denies urticaria PMFSH Past Medical History Medical History Actinic keratoses Chronic pain syndrome Pain pump. Coffee ground emesis Coronary artery disease Depression Essential (primary) hypertension Fracture of lumbar spine History of seizure Attributed to tramadol. Myocardial infarction Neurogenic bladder Parkinsonism Pelvic fracture Traumatic brain injury Urethral stricture Surgical History Surgical History History of appendectomy History of cardiac catheterization 03/13/2020, 03/20/2021, 09/11/2021 History of cholecystectomy History of coronary artery stent placement History of dilation of urethra History of esophagogastroduodenoscopy (EGD) History of lumbar surgery History of partial colectomy History of tonsillectomy Status post glaucoma surgery Family History Family History Mother Family history of cardiovascular disease Diabetes mellitus Patient's mother is Father Patient's father is Sibling Cancer Breast cancer Son Melanoma Thyroid cancer Social History Social History Social History: Surrogate medical decision maker: Madan Wellington (son) or Stefanie Eliz (spouse). Code status: Full code. Smoking packs per day: 1 Smoking cigarettes per day: 20.0 Years smoked: 1.5 Smoking pack-years: 1.50 Smoking status: Never smoker Tobacco type: cigarettes Second hand tobacco smoke exposure: No Alcohol intake: never Substance use: never Substance use type: does not use Lack of Transportation: No Lack of Food: Never True Current Housing: I Have Housing Concerned About Future Housing: No Difficulty Paying Gas/Electric Bills: No Difficulty Paying for Meds: No Currently Unemployed: No Education: Bachelor's Degree Difficulty w/ Childcare or Family Care: No Living arrangements: with family Spiritual care concerns: No Meds Home Medications and Allergies Home Medications Medication Instructions Recorded Confirmed Type pregabalin 150 mg capsule (Lyrica) 150 mg PO HS 03/12/20 02/08/23 History aspirin 81 mg chewable tablet 81 mg PO DAILY@0800 #30 tabs 03/14/20 02/08/23 Rx (Children's Aspirin) atorvastatin 40 mg tablet 40 mg PO DAILY #30 tabs 03/14/20 02/08/23 Rx Hydromorphone Pain Pump 4.488 mg implant DAILY pain 04/30/20 02/08/23 History cholecalciferol (vitamin D3) 25 25 mcg PO DAILY 04/30/20 02/08/23 History mcg (1,000 unit) capsule (Vitamin D3)
[2023-02-23 08:48] VITALS: BP 119/81; PULSE 66; RESP 15; O2SAT 94
[2023-02-23 08:58] VITALS: BP 116/74; PULSE 64; RESP 18; O2SAT 94
[2023-02-23 09:08] VITALS: BP 128/83; PULSE 67; RESP 22; O2SAT 94
== END 2023-02-23 09:16 | disposition home or self-care (01) ==
PROVIDERS: PCP Family Medicine; Visit Provider Internal Medicine Gastroenterology
PROC: 0DJ08ZZ Inspection of Upper Intestinal Tract, Via Natural or Artificial Opening Endoscopic (ICD-10-PCS; CPT 43235; principal; 2023-02-23 09:30)
DX: Z09 Encounter for follow-up examination after completed treatment for conditions other than malignant neoplasm (principal); K29.70 Gastritis, unspecified, without bleeding; K31.84 Gastroparesis; Z87.11 Personal history of peptic ulcer disease; I10 Essential (primary) hypertension; I25.10 Atherosclerotic heart disease of native coronary artery without angina pectoris; I25.2 Old myocardial infarction; G20 Parkinson's disease; G89.4 Chronic pain syndrome; F32.A Depression, unspecified; Z87.820 Personal history of traumatic brain injury; Z95.5 Presence of coronary angioplasty implant and graft; Z90.49 Acquired absence of other specified parts of digestive tract; Z79.82 Long term (current) use of aspirin; Z79.891 Long term (current) use of opiate analgesic
CPT/HCPCS: 43235; J2704; J7120

== ENCOUNTER 2023-03-02 08:01 | Outpatient (CLI) | payer MEDICARE, OTHER, SELFPAY ==
--- NOTE | ~2023-03-02 | NM_ITS ---
EXAM: NM gastric emptying study DATE: 03/02/2023 13:06 INDICATION: Nausea. TECHNIQUE: A gastric emptying study was performed using the methodology of Kathi GREENFIELD, et al. J Nucl Med 2007; 48:568-572. The patient was given a meal consisting of 2 scrambled eggs labeled with 0.972 mCi Tc-99m sulfur colloid, 2 slices of toast, two packages of jam, and approximately 120 mL of water . Simultaneous anterior and posterior 1-min images of the abdomen were obtained with the patient supi ne at multiple time points over a total period of 4 hours. The geometric mean of anterior and posteri or views was determined, and the percentage retention was calculated for each time point. COMPARISON: None. FINDINGS: Gastric retention of the radiotracer-labeled meal was 73%, 50%, and 9% at the 1-hour, 2-ho ur, and 4-hour time points, respectively. With this technique, apparent rapid gastric emptying is sug gested by <30% gastric retention at 1 hour. Delayed gastric emptying is defined by gastric retention of >90% at 1 hour, >60% retention at 2 hours, or >10% retention at 4 hours. IMPRESSION: 1. Normal gastric emptying. Reviewed, dictated and finalized at location A. IMPRESSION: 1. Normal gastric emptying.
== END 2023-03-02 08:02 | disposition home or self-care (01) ==
PROVIDERS: PCP Family Medicine; Visit Provider Internal Medicine Gastroenterology
DX: R11.0 Nausea (principal)
CPT/HCPCS: 78264; A9541

== ENCOUNTER 2023-03-27 23:57 | Emergency (ER) | payer MEDICARE, OTHER, SELFPAY ==
--- NOTE | ~2023-03-27 | CT_ITS ---
CT of the Abdomen and Pelvis: Indication: Nausea, vomiting, diarrhea Technique: 2.5 mm axial scans were obtained through the abdomen and pelvis following intravenous adm inistration of 100 cc of Omnipaque 350. Dose reduction technique was used on this scan by utilizing a utomated exposure control and iterative reconstruction technique. The dose-length product (DLP) was 1 051.79 mGy-cm. Findings: Scans through the lung bases demonstrate linear right basilar atelectasis or scarring. The liver, spleen, pancreas, gallbladder, adrenals and kidneys are within normal limits. No evidence of aortic aneurysm. No lymphadenopathy. No bowel obstruction or bowel wall thickening. There is no evidence to suggest acute appendicitis. Images through the pelvis were performed. Urinary bladder unremarkable. Prostate gland and seminal ve sicles are unremarkable. No ascites. Impression: No significant abnormalities seen. Reviewed, dictated and finalized at [facility]. Impression: No significant abnormalities seen.
[2023-03-27 23:58] VITALS: BP 180/84; PULSE 72; RESP 14; TEMP 36.9
--- NOTE | 2023-03-28 00:06 | ECG_ITS ---
Measurements Intervals [place] Rate: 67 P: 24 NE: 173 QRS: 7 QRSD: 89 T: 3 QT: 392 QTc: 414 Interpretive Statements SINUS RHYTHM EARLY PRECORDIAL R/S TRANSITION BASELINE ARTIFACT- I, II, III, AVR, AVL, AVF, V1-V6 BORDERLINE ECG COMPARED TO ECG 01/25/2023 19:53:01 NO SIGNIFICANT CHANGES Electronically Signed On 03-28-2023 6:34:43 CDT by Yusuf Deluca D.O.
--- NOTE | 2023-03-28 00:08 | ED.NAVMDI ---
HPI - Nausea/Vomiting/Diarrhea General Chief complaint: Nausea/Vomiting/Diarrhea Stated complaint: n/v/d Time Seen by Provider: 03/28/23 00:04 History of Present Illness HPI Narrative: Patient presents to the emergency department via EMS from home. He has a history of Parkinson's. He has had nausea vomiting and diarrhea all day. Denies abdominal pain fevers or chills. Overall feels very weak and shaky. He is diaphoretic and states that he is very nauseous. Would like to vomit to relieve the symptoms. Denies other sick contacts. EMS started IV fluids in route and contribute to the history. Patient denies blood in his emesis or stool Related Data Home Medications Medication Instructions Recorded Confirmed pregabalin 150 mg capsule (Lyrica) 150 mg PO HS 03/12/20 02/08/23 Hydromorphone Pain Pump 4.488 mg implant DAILY pain 04/30/20 02/08/23 cholecalciferol (vitamin D3) 25 25 mcg PO DAILY 04/30/20 02/08/23 mcg (1,000 unit) capsule (Vitamin D3) magnesium 500 mg tablet 500 mg PO DAILY 04/30/20 02/08/23 vitamin B complex 1 cap PO DAILY 04/30/20 02/08/23 cyanocobalamin (vitamin B-12) 1,000 mcg PO DAILY 08/12/21 02/08/23 1,000 mcg capsule brimonidine 0.2 %-timolol 0.5 % 1 drp EACH EYE Q12H 11/14/22 02/08/23 eye drops carbidopa 25 mg-levodopa 100 mg 3.5 tablet PO TID 11/14/22 02/23/23 tablet d-mannose 500 mg capsule 500 mg PO DAILY 11/14/22 02/08/23 Allergies Allergy/AdvReac Type Severity Reaction Status Date / Time tramadol Allergy Mild SEIZURE Verified 02/23/23 08:21 ticagrelor [From Brilinta] AdvReac Dyspnea / Verified 02/23/23 08:21 SOB Review of Systems Review of Systems: All other review of systems negative except for what is documented in the HPI [facility] Past Medical History Medical History Actinic keratoses Chronic pain syndrome Pain pump. Coffee ground emesis Coronary artery disease Depression Essential (primary) hypertension Fracture of lumbar spine History of seizure Attributed to tramadol. Myocardial infarction Neurogenic bladder Parkinsonism Pelvic fracture Traumatic brain injury Urethral stricture Surgical History Surgical History History of appendectomy History of cardiac catheterization 03/13/2020, 03/20/2021, 09/11/2021 History of cholecystectomy History of coronary artery stent placement History of dilation of urethra History of esophagogastroduodenoscopy (EGD) History of lumbar surgery History of partial colectomy History of tonsillectomy Status post glaucoma surgery Family History Family History Mother Family history of cardiovascular disease Diabetes mellitus Patient's mother is Father Patient's father is Sibling Cancer Breast cancer Son Melanoma Thyroid cancer Social History Social History Social History: Surrogate medical decision maker: Madan Wellington (son) or Stefanie Wellington (spouse). Code status: Full code. Smoking packs per day: 1 Smoking cigarettes per day: 20.0 Years smoked: 1.5 Smoking pack-years: 1.50 Smoking status: Never smoker Tobacco type: cigarettes Second hand tobacco smoke exposure: No Alcohol intake: never Substance use: never Substance use type: does not use Lack of Transportation: No Lack of Food: Never True Current Housing: I Have Housing Concerned About Future Housing: No Difficulty Paying Gas/Electric Bills: No Difficulty Paying for Meds: No Currently Unemployed: No Education: Bachelor's Degree Difficulty w/ Childcare or Family Care: No Living arrangements: with family Spiritual care concerns: No Exam Narrative: GENERAL: , well-nourished, and uncomfortable diaphoretic HEAD: Normocephalic, atraumatic. EYES: PERRLA and EOMI
[2023-03-28] MEDS: SODIUM CHLORIDE 0.9% IV 1,000 ML 999 ML IV CONT (00:09)
[2023-03-28] MEDS: ONDANSETRON INJ 4 MG/2 ML VIAL IV PUSH (00:12)
[2023-03-28] MEDS: FAMOTIDINE 20 MG/2 ML VIAL IV PUSH (00:12)
[2023-03-28 00:28] LABS: Alanine Aminotransferase 14 U/L (6-50); Alkaline Phosphatase 100 U/L (38-126); Anion Gap 7 mmol/L (8-16); Aspartate Amino Transferase 38 U/L (17-59); Bilirubin,Total 0.6 mg/dL (0.2-1.3); Blood Urea Nitrogen 14 mg/dL (9-20); Calcium 8.6 mg/dL (8.4-10.2); Carbon Dioxide 28 mmol/L (22-30); Chloride 102 mmol/L (98-107); Estimated CRCL calculation 124 ml/min; Estimated Glomerular Filt Rate > 60; Glucose 135 mg/dL (65-110); Lipase 82 U/L (23-300); Potassium 4.1 mmol/L (3.4-5.0); Sodium 137 mmol/L (137-145)
[2023-03-28 00:36] LABS: Basophils Percent Auto 0.5 % (0.2-1.2); Eosinophils Absolute Auto 0.2 K/mm3 (0-0.3); Eosinophils Percent Auto 2.2 % (0-4.4); Hematocrit 42.7 % (42.0-52.0); Hemoglobin 13.8 g/dL (14.0-18.0); Immature Granulocyte Absolute 0.02 K/mm3 (0.00-0.031); Immature Granulocyte Percent A 0.3 % (0-0.5); Lymphocytes Absolute Auto 1.14 K/mm3 (0.9-3.2); Lymphocytes Percent Auto 15.6 % (18.3-44.2); Mean Corpuscular HGB Conc 32.3 g/dl (32-36); Mean Corpuscular Hemoglobin 26.9 pg (26-34); Mean Corpuscular Volume 83.2 fl (80-100); Mean Platelet Volume 9.8 fl (7.4-10.4); Monocytes Absolute Auto 0.6 K/mm3 (0.1-0.6); Monocytes Percent Auto 7.8 % (2.6-8.5); Neutrophils Absolute Auto 5.4 K/mm3 (1.3-6.7); Neutrophils Percent Auto 73.6 % (45.5-73.1); Platelet Count Result 189 k/mm3 (150-375); Red Blood Count 5.13 M/mm3 (4.6-6.20); Red Cell Distribution Width 14.9 % (11.5-14.5); White Blood Count 7.3 K/mm3 (4.5-10.0)
[2023-03-28 00:37] LABS: Troponin I < 0.012 ng/mL (0.000-0.034)
[2023-03-28 01:03] VITALS: BP 156/88; PULSE 74; RESP 15; O2SAT 97
[2023-03-28 01:32] LABS: Appearance Urine Clear (Clear); Bilirubin Urine Negative (Negative); Blood Urine Negative (Negative); Color Urine Yellow (Yellow); Glucose Urine UA Negative (Negative); Ketones Urine Negative (Negative); Leukocyte Esterase Ur Negative LEU/UL (Negative); Nitrate Urine Negative (Negative); Protein Urine Negative (Negative); Specific Grav Ur 1.015 (1.001-1.035); pH Urine 7.5 (5.0-9.0)
[2023-03-28 01:41] LABS: Add Urine Microscopic? NO
[2023-03-28 03:42] VITALS: BP 150/82; PULSE 62; RESP 15; O2SAT 98
[2023-03-28 03:43] LABS: Troponin I < 0.012 ng/mL (0.000-0.034)
[2023-03-28 04:57] VITALS: BP 148/98; PULSE 76; RESP 15; O2SAT 98
== END 2023-03-28 04:57 | disposition home or self-care (01) ==
PROVIDERS: Emergency Provider Emergency Medicine; PCP Family Medicine
DX: R11.2 Nausea with vomiting, unspecified (principal); R19.7 Diarrhea, unspecified; G20 Parkinson's disease; I10 Essential (primary) hypertension; I25.10 Atherosclerotic heart disease of native coronary artery without angina pectoris; I25.2 Old myocardial infarction; G89.4 Chronic pain syndrome; N31.9 Neuromuscular dysfunction of bladder, unspecified; Z79.891 Long term (current) use of opiate analgesic; Z95.5 Presence of coronary angioplasty implant and graft; Z90.49 Acquired absence of other specified parts of digestive tract; Z87.891 Personal history of nicotine dependence; Z79.82 Long term (current) use of aspirin
CPT/HCPCS: 36415; 74177; 80053; 81003; 83690; 84484; 85025; 93005; 96361; 96374; 96375; 99284; J2405; J7030; Q9967

== ENCOUNTER 2023-04-12 14:29 | Observation (INO) | payer MEDICARE, OTHER, SELFPAY ==
--- NOTE | ~2023-04-12 | CT_ITS ---
EXAMINATION: CT brain wo con DATE: 04/12/2023 15:13 INDICATION: Head injury. Nausea and vomiting. TECHNIQUE: Computed tomography (CT) of the head was performed without intravenous contrast. The mA wa s adjusted according to patient size. Iterative reconstruction technique was employed. The dose-lengt h product was 605.33 mGy-cm. COMPARISON: Head CT 09/16/2021 FINDINGS: There is diffuse brain volume loss. There are scattered areas of low attenuation in the cer ebral white matter, which is within normal limits for the patient's age. The ventricles are normal in size. There is mild mucosal thickening in the paranasal sinuses. The orbits are normal. The mastoid air cells are normal. IMPRESSION: 1. Normal aging brain. Reviewed, dictated and finalized at location E. IMPRESSION: 1. Normal aging brain.
--- NOTE | ~2023-04-12 | CT_ITS ---
EXAMINATION: CT cervical spine wo con DATE: 04/12/2023 15:14 INDICATION: Head injury. TECHNIQUE: Computed tomography (CT) of the cervical spine was performed without intravenous contrast. Automated exposure control and iterative reconstruction technique were employed. The dose-length pro duct was 439.90 mGy-cm. COMPARISON: CT cervical spine 09/16/21 FINDINGS: There is 3 degrees levocurvature of cervical spine. There is kyphosis of cervical spine. Th ere is 6 mm anterolisthesis of C4 on C5 and 3 mm anterolisthesis of C7 on T1. Vertebral body heights are normal. There is moderately decreased disc height at C3-C4, mildly decreased disc height at C4-C5 , severely decreased disc height at C5-C6 and C6-C7. The following disc levels are specifically discu ssed: C2-C3: There is mild bilateral uncovertebral joint osteoarthritis. There is severe right and mild lef t facet joint osteoarthritis. There is moderate right and mild left neural foraminal stenosis. There is no central canal stenosis. C3-C4: There is severe bilateral uncovertebral joint osteoarthritis. There is severe bilateral facet joint osteoarthritis. There is moderate right and mild left neural foraminal stenosis. There is mild central canal stenosis. C4-C5: There is severe right and moderate left uncovertebral joint osteoarthritis. There is severe bi lateral facet joint osteoarthritis. There is moderate right and mild left neural foraminal stenosis. There is mild central canal stenosis. C5-C6: There is severe bilateral uncovertebral joint osteoarthritis. There is severe bilateral facet joint osteoarthritis. There is moderate bilateral neural foraminal stenosis. There is mild central ca nal stenosis. C6-C7: There is severe bilateral uncovertebral joint osteoarthritis. There is severe bilateral facet joint osteoarthritis. There is moderate bilateral neural foraminal stenosis. There is mild central ca nal stenosis. C7-T1: There is mild bilateral uncovertebral joint osteoarthritis. There is severe bilateral facet genevieve int osteoarthritis. There is mild bilateral neural foraminal stenosis. There is no central canal sten osis. IMPRESSION: 1. No fracture. 2. Severe cervical spondylosis. Reviewed, dictated and finalized at location E.
[2023-04-12 14:29] VITALS: BP 172/93; PULSE 67; RESP 16; TEMP 36.6; O2SAT 97
--- NOTE | 2023-04-12 14:44 | ECG_ITS ---
Measurements Intervals [place] Rate: 70 P: 11 [place]: 152 QRS: -4 QRSD: 86 T: 28 QT: 371 QTc: 402 Interpretive Statements SINUS RHYTHM WITH OCCASIONAL VENTRICULAR PREMATURE COMPLEXES COMPARED TO ECG 03/28/2023 00:19:51 NO SIGNIFICANT CHANGES Electronically Signed On 04-12-2023 15:52:30 CDT by Daria Winn M.D.
[2023-04-12] MEDS: METOCLOPRAMIDE HCL INJ 10 MG/2 ML VIAL IV PUSH (15:29)
[2023-04-12 15:30] VITALS: BP 147/92; PULSE 69; RESP 16; O2SAT 97
[2023-04-12] MEDS: LACTATED RINGERS 1,000 ML 999 ML IV CONT (15:51)
[2023-04-12 16:12] LABS: Basophils Percent Auto 0.5 % (0.2-1.2); Eosinophils Absolute Auto 0.1 K/mm3 (0-0.3); Eosinophils Percent Auto 1.2 % (0-4.4); Hematocrit 43.2 % (42.0-52.0); Hemoglobin 13.6 g/dL (14.0-18.0); Immature Granulocyte Absolute 0.02 K/mm3 (0.00-0.031); Immature Granulocyte Percent A 0.3 % (0-0.5); Lymphocytes Absolute Auto 1.06 K/mm3 (0.9-3.2); Mean Corpuscular HGB Conc 31.5 g/dl (32-36); Mean Corpuscular Hemoglobin 26.8 pg (26-34); Mean Corpuscular Volume 85.2 fl (80-100); Mean Platelet Volume 9.3 fl (7.4-10.4); Monocytes Absolute Auto 0.4 K/mm3 (0.1-0.6); Monocytes Percent Auto 5.4 % (2.6-8.5); Neutrophils Absolute Auto 5.1 K/mm3 (1.3-6.7); Neutrophils Percent Auto 76.6 % (45.5-73.1); Platelet Count Result 200 k/mm3 (150-375); Red Blood Count 5.07 M/mm3 (4.6-6.20); Red Cell Distribution Width 15.4 % (11.5-14.5); White Blood Count 6.6 K/mm3 (4.5-10.0)
[2023-04-12 16:23] LABS: Anion Gap 5 mmol/L (8-16); Blood Urea Nitrogen 11 mg/dL (9-20); Carbon Dioxide 31 mmol/L (22-30); Chloride 101 mmol/L (98-107); Estimated CRCL calculation 105 ml/min; Estimated Glomerular Filt Rate > 60; Glucose 111 mg/dL (65-110); Potassium 4.1 mmol/L (3.4-5.0); Sodium 137 mmol/L (137-145)
--- NOTE | 2023-04-12 16:41 | ED.HEATRA ---
HPI - Head Injury General Chief complaint: Head Injury Stated complaint: GLF 5 days ago, worsening sx Time Seen by Provider: 04/12/23 14:55 History of Present Illness HPI Narrative: Patient presents after having a fall while in [place] visiting his son, he does have Parkinson's and is prone to falls, and hit his head and knees; has been having n/v and [place] since. Related Data Home Medications Medication Instructions Recorded Confirmed pregabalin 150 mg capsule (Lyrica) 150 mg PO HS 03/12/20 04/12/23 Hydromorphone Pain Pump 4.488 mg implant DAILY pain 04/30/20 04/12/23 cholecalciferol (vitamin D3) 25 25 mcg PO DAILY 04/30/20 04/12/23 mcg (1,000 unit) capsule (Vitamin D3) magnesium 500 mg tablet 500 mg PO DAILY 04/30/20 04/12/23 vitamin B complex 1 cap PO DAILY 04/30/20 04/12/23 cyanocobalamin (vitamin B-12) 1,000 mcg PO DAILY 08/12/21 04/12/23 1,000 mcg capsule brimonidine 0.2 %-timolol 0.5 % 1 drp EACH EYE Q12H 11/14/22 04/12/23 eye drops carbidopa 25 mg-levodopa 100 mg 3.5 tablet PO TID 11/14/22 04/12/23 tablet d-mannose 500 mg capsule 500 mg PO DAILY 11/14/22 04/12/23 tamsulosin 0.4 mg capsule mg PO 03/29/23 04/12/23 Allergies Allergy/AdvReac Type Severity Reaction Status Date / Time tramadol Allergy Mild SEIZURE Verified 04/12/23 14:45 ticagrelor [From Brilinta] AdvReac Dyspnea / Verified 04/12/23 14:45 SOB Review of Systems Review of Systems: All systems reviewed & are unremarkable except as noted in HPI and below PMFSH Past Medical History Medical History Actinic keratoses Chronic pain syndrome Pain pump. Coffee ground emesis Coronary artery disease Depression Essential (primary) hypertension Fracture of lumbar spine History of seizure Attributed to tramadol. Myocardial infarction Neurogenic bladder Parkinsonism Pelvic fracture Traumatic brain injury Urethral stricture Surgical History Surgical History History of appendectomy History of cardiac catheterization 03/13/2020, 03/20/2021, 09/11/2021 History of cholecystectomy History of coronary artery stent placement History of dilation of urethra History of esophagogastroduodenoscopy (EGD) History of lumbar surgery History of partial colectomy History of tonsillectomy Status post glaucoma surgery Family History Family History Mother Family history of cardiovascular disease Diabetes mellitus Patient's mother is Father Patient's father is Sibling Cancer Breast cancer Son Melanoma Thyroid cancer Social History Social History Social History: Surrogate medical decision maker: Madan Wellington (son) or Stefanie Wellington (spouse). Code status: Full code. Smoking packs per day: 1 Smoking cigarettes per day: 20.0 Years smoked: 1.5 Smoking pack-years: 1.50 Smoking status: Never smoker Tobacco type: cigarettes Second hand tobacco smoke exposure: No Alcohol intake: never Substance use: never Substance use type: does not use Lack of Transportation: No Lack of Food: Never True Current Housing: I Have Housing Concerned About Future Housing: No Difficulty Paying Gas/Electric Bills: No Difficulty Paying for Meds: No Currently Unemployed: No Education: Bachelor's Degree Difficulty w/ Childcare or Family Care: No Living arrangements: with family Spiritual care concerns: No Exam Narrative: EXAMINATION OF ORGAN SYSTEMS/BODY AREAS: Constitutional: Vital signs per nursing GENERAL:[No acute distress, non-toxic appearing.] HEAD: Abrasions to R head EYES: EOMI, conjunctiva normal ENT: Hearing grossly intact LUNGS: Nonlabored breathing. HEART: [Regular rate and rhythm] ABD: [Soft], [nontender to palpation] EXT: Normal range of motion; abr
[2023-04-12 17:22] VITALS: BP 168/96; PULSE 69; RESP 16; O2SAT 98
[2023-04-12 18:42] VITALS: BMI 25.7
[2023-04-12 20:06] VITALS: BP 173/83; PULSE 66; RESP 20; TEMP 36.2; O2SAT 94
[2023-04-12] MEDS: PREGABALIN (*CRX) 75 MG CAPSULE 150 MG PO (23:53)
[2023-04-12] MEDS: ALPRAZolam (*CRX) 0.25 MG TABLET PO (23:54)
[2023-04-12] MEDS: lisinopriL 10 MG TABLET PO (23:58)
[2023-04-12] MEDS: ACETAMINOPHEN 325 MG TABLET 650 MG PO (23:58)
[2023-04-13 04:21] VITALS: BP 142/86; PULSE 52; RESP 18; TEMP 36.1; O2SAT 95
[2023-04-13 08:38] VITALS: O2SAT 91
[2023-04-13] MEDS: CARBIDOPA/LEVODOPA 25/100 MG TABLET 3 TABLET PO ×2 (09:18→12:58)
[2023-04-13] MEDS: CARBIDOPA/LEVODOPA 12.5/50 MG TABLET 1 TABLET PO ×2 (09:19→12:58)
[2023-04-13] MEDS: ACETAMINOPHEN 325 MG TABLET 650 MG PO (09:19)
[2023-04-13] MEDS: ASPIRIN 81 MG CHEWABLE TABLET PO (09:19)
[2023-04-13] MEDS: MAGNESIUM OXIDE 400 MG TABLET PO (09:20)
[2023-04-13] MEDS: DULoxetine HCL 60 MG CAPSULE.DR 120 MG PO (09:20)
[2023-04-13] MEDS: CYANOCOBALAMIN 1,000 MCG TABLET 1000 MCG PO (09:20)
[2023-04-13] MEDS: ATORVASTATIN 40 MG TABLET PO (09:21)
[2023-04-13] MEDS: TAMSULOSIN HCL 0.4 MG CAPSULE PO (09:21)
[2023-04-13] MEDS: CHOLECALCIFEROL 1,000 UNITS TABLET 1000 UNITS PO (09:21)
[2023-04-13] MEDS: VITAMIN B COMPLEX CAPSULE 1 CAP PO (09:21)
[2023-04-13] MEDS: PANTOPRAZOLE 40 MG TABLET PO (09:21)
[2023-04-13] MEDS: TIMOLOL MALEATE 0.5% OP SOLN 5 ML BOTTLE 1 DROP EACH EYE ×2 (09:22)
[2023-04-13] MEDS: BRIMONIDINE TARTRATE 0.2% OP SOLN 5 ML BTL 1 DROP EACH EYE ×2 (09:23)
[2023-04-13] MEDS: LIDOCAINE 5% PATCH 1 PATCH TOPICAL (09:24)
--- NOTE | 2023-04-13 10:19 | PM.IMHP ---
H&P: HPI History of Present Illness Date/Time: 04/13/23 10:19 [facility] Past Medical History Medical History Actinic keratoses Chronic pain syndrome Pain pump. Coffee ground emesis Coronary artery disease Depression Essential (primary) hypertension Fracture of lumbar spine History of seizure Attributed to tramadol. Myocardial infarction Neurogenic bladder Parkinsonism Pelvic fracture Traumatic brain injury Urethral stricture Surgical History Surgical History History of appendectomy History of cardiac catheterization 03/13/2020, 03/20/2021, 09/11/2021 History of cholecystectomy History of coronary artery stent placement History of dilation of urethra History of esophagogastroduodenoscopy (EGD) History of lumbar surgery History of partial colectomy History of tonsillectomy Status post glaucoma surgery Family History Family History Mother Family history of cardiovascular disease Diabetes mellitus Patient's mother is Father Patient's father is Sibling Cancer Breast cancer Son Melanoma Thyroid cancer Social History Social History Social History: Surrogate medical decision maker: Madan Wellington (son) or Stefanie Wellington (spouse). Code status: Full code. Smoking packs per day: 1 Smoking cigarettes per day: 20.0 Years smoked: 1.5 Smoking pack-years: 1.50 Smoking status: Never smoker Second hand tobacco smoke exposure: No Alcohol intake: never Substance use: never Substance use type: does not use Lack of Transportation: No Lack of Food: Never True Current Housing: I Have Housing Concerned About Future Housing: No Difficulty Paying Gas/Electric Bills: No Difficulty Paying for Meds: No Currently Unemployed: No Education: Bachelor's Degree Difficulty w/ Childcare or Family Care: No Living arrangements: with family Spiritual care concerns: No Meds Home Medications and Allergies Home Medications Medication Instructions Recorded Confirmed Type pregabalin 150 mg capsule (Lyrica) 150 mg PO HS 03/12/20 04/12/23 History aspirin 81 mg chewable tablet 81 mg PO DAILY@0800 #30 tabs 03/14/20 04/12/23 Rx (Children's Aspirin) atorvastatin 40 mg tablet 40 mg PO DAILY #30 tabs 03/14/20 04/12/23 Rx Hydromorphone Pain Pump 4.488 mg implant DAILY pain 04/30/20 04/12/23 History cholecalciferol (vitamin D3) 25 25 mcg PO DAILY 04/30/20 04/12/23 History mcg (1,000 unit) capsule (Vitamin D3) magnesium 500 mg tablet 500 mg PO DAILY 04/30/20 04/12/23 History vitamin B complex 1 cap PO DAILY 04/30/20 04/12/23 History cyanocobalamin (vitamin B-12) 1,000 mcg PO DAILY 08/12/21 04/12/23 History 1,000 mcg capsule lisinopril 10 mg tablet 10 mg PO HS #90 tabs 07/19/22 04/12/23 Rx brimonidine 0.2 %-timolol 0.5 % 1 drp EACH EYE Q12H 11/14/22 04/12/23 History eye drops carbidopa 25 mg-levodopa 100 mg 3.5 tablet PO TID 11/14/22 04/12/23 History tablet d-mannose 500 mg capsule 500 mg PO DAILY 11/14/22 04/12/23 History duloxetine 60 mg capsule,delayed 120 mg PO DAILY #180 caps 01/04/23 04/12/23 Rx release (Cymbalta) ferrous sulfate 325 mg (65 mg 325 mg PO BID #180 tabs 02/14/23 04/12/23 Rx iron) tablet (FeroSul) pantoprazole 40 mg tablet,delayed 40 mg PO DAILY #60 tabs 02/23/23 04/12/23 Rx release (Protonix) ondansetron 4 mg disintegrating 4 mg PO Q8H PRN nausea and 03/28/23 04/12/23 Rx tablet vomiting #20 tabs alprazolam 0.25 mg tablet 0.25 mg PO TID PRN anxiety #20 tabs 03/29/23 04/12/23 Rx lidocaine 5 % topical patch 1 patch topical DAILY #15 ea 03/29/23 04/12/23 Rx scopolamine base 1 mg over 3 days 1 patch transdermal Q3D PRN motion 03/29/23 04/12/23 Rx transdermal patch sickness #10 ea tamsulosin 0.4 mg capsule 0.4
--- NOTE | 2023-04-13 12:23 | PM.SD2 ---
Same Day Admit/Disch: HPI History of Present Illness Chief complaint: PD/fall/ cant walk Narrative: Joe Wellington is a 73 year old male is admitted to the hospital due to concussion and debility after he fell from his wheelchair 5 days ago in [place]. Patient reports that he fell forward down a ramp striking his head as well as both knees the ground. Since this time he has weakened considerably which he attributes to his Parkinson's disease and the pain associated with falling forward from wheelchair. Patient was seen at a hospital in [place] with negative CT scan and negative x-rays. When he came home he went to see his primary care provider Dr. Mcwilliams in the office who sent him over to the emergency department to be evaluated and possibly admitted for rehabilitation. Patient symptoms of headache and weakness as well as some occasional irritation agitation are consistent with concussion. Patient denies any chest pain difficulty breathing bowel or bladder problems nausea or vomiting. Patient reports that generalized weakness and deconditioning is his primary complaint at this time. His notes that he has the distal symptoms headache and agitation. [facility] Past Medical History Medical History Actinic keratoses Chronic pain syndrome Pain pump. Coffee ground emesis Coronary artery disease Depression Essential (primary) hypertension Fracture of lumbar spine History of seizure Attributed to tramadol. Myocardial infarction Neurogenic bladder Parkinsonism Pelvic fracture Traumatic brain injury Urethral stricture Surgical History Surgical History History of appendectomy History of cardiac catheterization 03/13/2020, 03/20/2021, 09/11/2021 History of cholecystectomy History of coronary artery stent placement History of dilation of urethra History of esophagogastroduodenoscopy (EGD) History of lumbar surgery History of partial colectomy History of tonsillectomy Status post glaucoma surgery Family History Family History Mother Family history of cardiovascular disease Diabetes mellitus Patient's mother is Father Patient's father is Sibling Cancer Breast cancer Son Melanoma Thyroid cancer Social History Social History Social History: Surrogate medical decision maker: Madan Wellington (son) or Stefanie Wellington (spouse). Code status: Full code. Smoking packs per day: 1 Smoking cigarettes per day: 20.0 Years smoked: 1.5 Smoking pack-years: 1.50 Smoking status: Never smoker Second hand tobacco smoke exposure: No Alcohol intake: never Substance use: never Substance use type: does not use Lack of Transportation: No Lack of Food: Never True Current Housing: I Have Housing Concerned About Future Housing: No Difficulty Paying Gas/Electric Bills: No Difficulty Paying for Meds: No Currently Unemployed: No Education: Bachelor's Degree Difficulty w/ Childcare or Family Care: No Living arrangements: with family Spiritual care concerns: No Same Day Admit/Disch: Med Pre-admit Medications Home Medications Medication Instructions Recorded Confirmed Type pregabalin 150 mg capsule (Lyrica) 150 mg PO HS 03/12/20 04/12/23 History aspirin 81 mg chewable tablet 81 mg PO DAILY@0800 #30 tabs 03/14/20 04/12/23 Rx (Children's Aspirin) atorvastatin 40 mg tablet 40 mg PO DAILY #30 tabs 03/14/20 04/12/23 Rx Hydromorphone Pain Pump 4.488 mg implant DAILY pain 04/30/20 04/12/23 History cholecalciferol (vitamin D3) 25 25 mcg PO DAILY 04/30/20 04/12/23 History mcg (1,000 unit) capsule (Vitamin D3) magnesium 500 mg tablet 500 mg PO DAILY 04/30/20 04/12/23 History vitamin B complex 1 cap PO DAILY 04/30/20 04/12/23 History cyan
== END 2023-04-13 15:09 ==
LOC: ANHED 16:45 → ANH2MED 17:32
PROVIDERS: Admitting Provider Family Medicine; Emergency Provider Emergency Medicine; PCP Family Medicine; Visit Provider Family Medicine
DX: S06.0X9A Concussion with loss of consciousness of unspecified duration, initial encounter (principal); W10.2XXA Fall (on)(from) incline, initial encounter; G20.A1 Parkinson's disease without dyskinesia, without mention of fluctuations; R53.81 Other malaise; R29.6 Repeated falls; M25.562 Pain in left knee; M25.561 Pain in right knee; M47.812 Spondylosis without myelopathy or radiculopathy, cervical region; Z97.8 Presence of other specified devices; G89.4 Chronic pain syndrome; I10 Essential (primary) hypertension; F41.9 Anxiety disorder, unspecified; M62.838 Other muscle spasm; I25.10 Atherosclerotic heart disease of native coronary artery without angina pectoris; Z95.5 Presence of coronary angioplasty implant and graft; F32.A Depression, unspecified; I49.3 Ventricular premature depolarization; I25.2 Old myocardial infarction; N31.9 Neuromuscular dysfunction of bladder, unspecified; Z87.820 Personal history of traumatic brain injury; Z82.49 Family history of ischemic heart disease and other diseases of the circulatory system; Z79.82 Long term (current) use of aspirin; Z79.899 Other long term (current) drug therapy
CPT/HCPCS: 36415; 70450; 72125; 80048; 85025; 93005; 96361; 96374; 97161; 97166; 99285; A9270; G0378; J2765; J7120

== ENCOUNTER 2023-05-20 18:39 | Inpatient (IN) | payer MEDICARE, OTHER, SELFPAY ==
--- NOTE | ~2023-05-20 | CT_ITS ---
EXAMINATION: CT brain wo con DATE: 05/21/2023 19:16 INDICATION: headache . TECHNIQUE: Computed tomography (CT) of the head was performed without intravenous contrast. The mA wa s adjusted according to patient size. Iterative reconstruction technique was employed. The dose-lengt h product was 681.00 mGy-cm. COMPARISON: 04/12/2023. FINDINGS: No acute intracranial hemorrhage or extra-axial fluid collection. No hydrocephalus, mass, or herniation. No acute ischemic infarct. Unremarkable dural venous sinus attenuation. No acute osseous abnormality. The aerated spaces are clear. Moderate atrophy and chronic white matter change. Atherosclerotic intracranial calcification. Bilater al lens replacements. IMPRESSION: No acute intracranial process. Reviewed, dictated and finalized at location K. PLOW TRACTOR OPERATOR
--- NOTE | ~2023-05-20 | XR_ITS ---
EXAMINATION: XR chest 1V portable DATE: 05/20/2023 19:06 INDICATION: Fatigue. Weakness. TECHNIQUE: A single frontal view of the chest was obtained. COMPARISON: Chest 2 views 01/25/2023, CT abdomen and pelvis 03/28/2023 FINDINGS: Again seen are small lung volumes. There is mild atelectasis in the lung bases. No pleural effusion or pneumothorax. The heart size is normal. IMPRESSION: 1. Small lung volumes with mild atelectasis at the lung bases. Reviewed, dictated and finalized at location E. RAL STERILE SUPPLY TECHNICIAN
--- NOTE | ~2023-05-20 | US_ITS ---
EXAMINATION: US venous doppler [facility] DATE: 05/21/2023 17:29 INDICATION: Swelling . TECHNIQUE: Grayscale images without and with compression and Doppler images of the bilateral lower ex tremity veins were obtained. COMPARISON: None FINDINGS: The right common femoral vein, profunda (deep) femoral vein, femoral vein, popliteal vein, peroneal v ein, posterior tibial veins, gastrocnemius vein, and greater saphenous vein are patent. The left common femoral vein, profunda (deep) femoral vein, femoral vein, popliteal vein, peroneal v ein, posterior tibial veins, gastrocnemius vein, and greater saphenous vein are patent. IMPRESSION: Patent bilateral lower extremity veins. No evidence of deep venous thrombosis. Reviewed, dictated and finalized at location K. HRAGM BUILDER
[2023-05-20 18:38] VITALS: BP 188/105; PULSE 78; RESP 15; TEMP 36.2; O2SAT 98
--- NOTE | 2023-05-20 18:45 | ECG_ITS ---
Measurements Intervals [place] Rate: 77 P: 33 [place]: 177 QRS: 4 QRSD: 93 T: 44 QT: 378 QTc: 428 Interpretive Statements SINUS RHYTHM LOW QRS VOLTAGE IN PRECORDIAL LEADS BORDERLINE T WAVE ABNORMALITY- INFERIOR LEADS BASELINE ARTIFACT- I, II, AVR, AVL, AVF, V1-V6 BORDERLINE ECG COMPARED TO ECG 04/12/2023 14:34:46 NO SIGNIFICANT CHANGES Electronically Signed On 05-21-2023 15:37:41 TOOL GRINDER OPERATOR EXTERNAL by Yusuf Deluca D.O.
[2023-05-20 19:04] LABS: Basophils Percent Auto 0.4 % (0.2-1.2); Eosinophils Absolute Auto 0.1 K/mm3 (0-0.3); Eosinophils Percent Auto 1.3 % (0-4.4); Hematocrit 44.4 % (42.0-52.0); Hemoglobin 13.9 g/dL (14.0-18.0); Immature Granulocyte Absolute 0.02 K/mm3 (0.00-0.031); Immature Granulocyte Percent A 0.3 % (0-0.5); Lymphocytes Absolute Auto 1.28 K/mm3 (0.9-3.2); Lymphocytes Percent Auto 18.7 % (18.3-44.2); Mean Corpuscular HGB Conc 31.3 g/dl (32-36); Mean Corpuscular Hemoglobin 27.2 pg (26-34); Mean Corpuscular Volume 86.9 fl (80-100); Mean Platelet Volume 9.6 fl (7.4-10.4); Monocytes Absolute Auto 0.3 K/mm3 (0.1-0.6); Neutrophils Absolute Auto 5.1 K/mm3 (1.3-6.7); Neutrophils Percent Auto 74.3 % (45.5-73.1); Platelet Count Result 218 k/mm3 (150-375); Red Blood Count 5.11 M/mm3 (4.6-6.20); Red Cell Distribution Width 14.3 % (11.5-14.5); White Blood Count 6.8 K/mm3 (4.5-10.0)
[2023-05-20 19:11] LABS: Alanine Aminotransferase 8 U/L (6-50); Albumin Level 4.3 g/dL (3.5-5.1); Alkaline Phosphatase 93 U/L (38-126); Anion Gap 9 mmol/L (8-16); Aspartate Amino Transferase 39 U/L (17-59); Bilirubin,Total 0.7 mg/dL (0.2-1.3); Blood Urea Nitrogen 17 mg/dL (9-20); Calcium 9.2 mg/dL (8.4-10.2); Carbon Dioxide 30 mmol/L (22-30); Chloride 100 mmol/L (98-107); Estimated CRCL calculation 105 ml/min; Estimated Glomerular Filt Rate > 60; Glucose 132 mg/dL (65-110); Potassium 3.8 mmol/L (3.4-5.0); Sodium 139 mmol/L (137-145)
[2023-05-20 19:52] LABS: Appearance Urine Cloudy (Clear); Bacteria Urine None Seen /hpf; Bilirubin Urine Negative (Negative); Blood Urine Negative (Negative); Color Urine Yellow (Yellow); Glucose Urine UA Negative (Negative); Ketones Urine Negative (Negative); Leukocyte Esterase Ur Negative LEU/UL (Negative); Nitrate Urine Negative (Negative); Non Pathogenic Casts 0-2; Protein Urine Negative (Negative); RBC Urine 0-2 /hpf (0-2); Specific Grav Ur 1.016 (1.001-1.035); Squamous Epithelial Cell Urine None seen /hpf (Few); WBC Urine 0-5 /hpf
[2023-05-20 19:53] LABS: Add Urine Microscopic? YES
--- NOTE | 2023-05-20 20:04 | ED.NAVMDI ---
HPI - Nausea/Vomiting/Diarrhea General Chief complaint: Weakness Stated complaint: gen wkns, htn Time Seen by Provider: 05/20/23 19:11 History of Present Illness HPI Narrative: Patient is a 73-year-old male with a history of Parkinson's, hyperlipidemia, hypertension, GERD presenting with nausea and general malaise. Patient's is at bedside and helps with the history. States that he is being treated for cellulitis on his right leg with 2 different antibiotics. States that his rash is improving. He took his antibiotics this morning without eating and had nausea following this. States that he continued to have an upset stomach this afternoon even after having a snack. Also complaining of intermittent diffuse shaking. He denies any pain. No chest pain or abdominal pain. No diarrhea. No dysuria though does sometimes have problems initiating his stream. No fevers. No shortness of breath or cough. No further complaints. Related Data Home Medications Medication Instructions Recorded Confirmed pregabalin 150 mg capsule (Lyrica) 150 mg PO HS 03/12/20 05/21/23 Hydromorphone Pain Pump 4.488 mg implant DAILY pain 04/30/20 05/21/23 cholecalciferol (vitamin D3) 25 25 mcg PO DAILY 04/30/20 05/21/23 mcg (1,000 unit) capsule (Vitamin D3) vitamin B complex 1 cap PO DAILY 04/30/20 05/21/23 cyanocobalamin (vitamin B-12) 1,000 mcg PO DAILY 08/12/21 05/21/23 1,000 mcg capsule carbidopa 25 mg-levodopa 100 mg 3.5 tablet PO TID 11/14/22 05/21/23 tablet d-mannose 500 mg capsule 500 mg PO DAILY 11/14/22 05/21/23 ferrous sulfate 325 mg (65 mg 325 mg PO BID 05/21/23 05/21/23 iron) tablet,delayed release neomycin 3.5 mg/g-polymyxin B 1 applic RIGHT EYE Q6H 05/21/23 05/21/23 10,000 unit/g-dexameth 0.1 % eye oint (Maxitrol) Allergies Allergy/AdvReac Type Severity Reaction Status Date / Time tramadol Allergy Mild SEIZURE Verified 05/17/23 10:01 ticagrelor [From Brilinta] AdvReac Dyspnea / Verified 05/17/23 10:01 SOB Review of Systems Review of Systems: All systems reviewed & are unremarkable except as noted in HPI and below PMFSH Past Medical History Medical History Actinic keratoses Chronic pain syndrome Pain pump. Coffee ground emesis Coronary artery disease Depression Essential (primary) hypertension Fracture of lumbar spine History of seizure Attributed to tramadol. Myocardial infarction Neurogenic bladder Parkinsonism Pelvic fracture Traumatic brain injury Urethral stricture Surgical History Surgical History History of appendectomy History of cardiac catheterization 03/13/2020, 03/20/2021, 09/11/2021 History of cholecystectomy History of coronary artery stent placement History of dilation of urethra History of esophagogastroduodenoscopy (EGD) History of lumbar surgery History of partial colectomy History of tonsillectomy Status post glaucoma surgery Family History Family History (Updated 05/21/23 @ 00:16 by Monica Molina RN) Mother Diabetes mellitus Patient's mother is Father Patient's father is Sibling Breast cancer Cancer Son Thyroid cancer Melanoma Social History Social History Social History: Surrogate medical decision maker: Madan Wellington (son) or Stefanie Wellington (spouse). Code status: Full code. Smoking packs per day: 1 Smoking cigarettes per day: 20.0 Years smoked: 3 Smoking pack-years: 3.00 Smoking status: Former smoker Second hand tobacco smoke exposure: No Alcohol intake: never Substance use: never Substance use type: does not use Last use: quit drinking about a year ago when started on Parkinson's med Lack of Transportation: No Lack of Food: Never True Current Housing: I Have Housing Concerned About Future Housing: No Difficul
[2023-05-20] MEDS: SODIUM CHLORIDE 0.9% IV 1,000 ML 999 ML IV CONT (20:11)
[2023-05-20] MEDS: LORazepam INJ (*CRX) 2 MG/ML VIAL 0.5 MG IV PUSH (20:11)
[2023-05-20 20:12] VITALS: BP 191/94; PULSE 68; RESP 17; TEMP 36.6; O2SAT 95
[2023-05-20] MEDS: ONDANSETRON INJ 4 MG/2 ML VIAL IV PUSH (20:12)
[2023-05-20 20:26] LABS: Lipase 74 U/L (23-300)
[2023-05-20 20:47] LABS: Troponin I 0.037 ng/mL (0.000-0.034)
[2023-05-20 21:18] VITALS: BP 155/89; PULSE 72; RESP 20; O2SAT 98
[2023-05-20] MEDS: ASPIRIN 81 MG CHEWABLE TABLET 324 MG PO (21:18)
[2023-05-20 22:13] LABS: Troponin I 0.036 ng/mL (0.000-0.034)
[2023-05-20 23:06] VITALS: BP 155/83; PULSE 75; RESP 18; O2SAT 98
[2023-05-20 23:25] VITALS: BP 177/80; PULSE 60; RESP 22; TEMP 36.5; O2SAT 96
--- NOTE | 2023-05-20 23:27 | ADMGEN ---
This patient, Joe Wellington, was admitted to IMU Room 206-01. Patient/family oriented to hospital policies and general routines including ID bracelet, bed and alarms, visiting hours, pain management, procedures, bathroom and other care routines, personal items, smoking policy, room service/diet, and visiting hours. Information on how to activate the Rapid Response Team has been discussed. Patient/Family are encouraged to report perceived risks to care and to ask questions if they do not understand what they are told or what they should do.
[2023-05-20 23:56] VITALS: BMI 26.1
[2023-05-21] VITALS (17 sets, daily range): BP systolic 121–159; BP diastolic 69–89; PULSE 54–68; RESP 20–22; TEMP 36.5–36.8; O2SAT 93–96
--- NOTE | 2023-05-21 | ECHO_ITS ---
Patient Info Name: Joe Wellington Age: 73 years : 1950 Gender: Male Ht: 74 in Wt: 200 lbs BSA: 2.18 m2 HR: 57 bpm BP: 121 / 82 mmHg Heart Rhythm: Sinus Rhythm Technical Quality: Good Exam Date: 05/21/2023 12:12 PM Exam Location: Echo Lab Patient Status: Outpatient Admit Date: 05/20/2023 Staff Ordering Physician: Mathew Neal MD [employer] Telephone Clerk: Caro Baltazar RDCS Attending Provider: Nat Tom DO Exam Type: CA echo doppler color flow Study Info Indications - ELEVATED TROPONIN Complete two-dimensional, color flow and Doppler transthoracic echocardiogram is performed. Summary 1. Complete two-dimensional, color flow and Doppler transthoracic echocardiogram is performed. 2. Left ventricular chamber dimension is normal. 3. Left ventricular systolic function is normal, estimated at 60-65%. 4. There is mildly increased left ventricular wall thickness. 5. The left ventricular diastolic function is grade I diastolic dysfunction. 6. Right ventricular systolic function is normal. 7. There is mild mitral valve regurgitation. 8. There is mild tricuspid valve regurgitation. Left Ventricle Left ventricular chamber dimension is normal. Left ventricular systolic function is normal, estimated at 60-65%. There is mildly increased left ventricular wall thickness. The left ventricular diastolic function is grade I diastolic dysfunction. Right Ventricle Right ventricular chamber dimension is normal. Right ventricular systolic function is normal. Left Atria Left atrial chamber dimension is normal. Right Atria Right atrial chamber dimension is normal. Atrial Septum Intact interatrial septum visualized by color flow imaging. Aortic Valve The aortic valve is trileaflet. There is no aortic valve stenosis. There is no aortic valve regurgitation. There is mild aortic valve calcification. Pulmonic Valve The pulmonic valve is not well visualized. Mitral Valve There is mild mitral valve regurgitation. Tricuspid Valve There is mild tricuspid valve regurgitation. Pericardium/Pleural There is no pericardial effusion. Inferior Vena Cava Inferior vena cava is not well visualized. Aorta The aortic root size at the sinus of Valsalva is normal. Left Ventricular Outflow Tract Name Value Normal LVOT 2D LVOT Diameter 2.1 cm LVOT Doppler LVOT Peak Gradient 2 mmHg LVOT Mean Gradient 1 mmHg LVOT VTI 17 cm LVOT VTI/AV VTI Ratio 0.4 LVOT Stroke Volume 57 ml LVOT CO 3.8 l/min LVOT CI 1.7 l/min/m2 Pulmonic Valve Name Value Normal RVOT Doppler RVOT Peak Gradient 2 mmHg PV Doppler PV Peak Gradient 6 mmHg Mi
[2023-05-21] MEDS: LORazepam INJ (*CRX) 2 MG/ML VIAL 0.5 MG IV PUSH ×2 (00:50→15:39)
[2023-05-21 01:31] LABS: Troponin I 0.038 ng/mL (0.000-0.034)
[2023-05-21] MEDS: ACETAMINOPHEN 325 MG TABLET 650 MG PO ×2 (10:30→20:56)
--- NOTE | 2023-05-21 10:42 | PM.IMHP ---
H&P: HPI History of Present Illness Date/Time: 05/21/23 10:42 Chief Complaint: Generalized weakness Narrative: Patient is a 73-year-old male with a history of Parkinson's, hyperlipidemia, hypertension, GERD presenting with nausea and general malaise.? Patient is a poor historian and most of the history is taken from his which at bedside. Patient was recently discharged from [facility] approximately 3 weeks ago. He had a biopsy done on his right leg which had gotten inflamed and has been taking antibiotics for the past week. He has noticed increased swelling in his legs right more than left since past few days. His blood pressure was quite elevated yesterday and hence brought to the ED for evaluation. He denies any fever shortness of breath or chest pain. He denies any cough. Review of Systems Review of Systems: - CONSTITUTIONAL: Denies weight loss, fever and chills. - HEENT: Denies changes in vision and hearing - RESPIRATORY: Denies SOB and cough. - CV: Denies palpitations and CP. - GI: Denies abdominal pain, nausea, vomiting and diarrhea. - : Denies dysuria and urinary frequency. - MSK: Denies myalgia and joint pain. - SKIN: Denies rash and pruritus. - NEUROLOGICAL: Reports headache and denies syncope. See HPI - PSYCHIATRIC: Denies recent changes in mood. Denies anxiety and depression. [facility] Past Medical History Medical History Actinic keratoses Chronic pain syndrome Pain pump. Coffee ground emesis Coronary artery disease Depression Essential (primary) hypertension Fracture of lumbar spine History of seizure Attributed to tramadol. Myocardial infarction Neurogenic bladder Parkinsonism Pelvic fracture Traumatic brain injury Urethral stricture Surgical History Surgical History History of appendectomy History of cardiac catheterization 03/13/2020, 03/20/2021, 09/11/2021 History of cholecystectomy History of coronary artery stent placement History of dilation of urethra History of esophagogastroduodenoscopy (EGD) History of lumbar surgery History of partial colectomy History of tonsillectomy Status post glaucoma surgery Family History Family History (Updated 05/21/23 @ 00:16 by Monica Molina RN) Mother Diabetes mellitus Patient's mother is Father Patient's father is Sibling Breast cancer Cancer Son Thyroid cancer Melanoma Social History Social History Social History: Surrogate medical decision maker: Madan Eliz (son) or Stefanie Eliz (spouse). Code status: Full code. Smoking packs per day: 1 Smoking cigarettes per day: 20.0 Years smoked: 3 Smoking pack-years: 3.00 Smoking status: Former smoker Second hand tobacco smoke exposure: No Alcohol intake: never Substance use: never Substance use type: does not use Last use: quit drinking about a year ago when started on Parkinson's med Lack of Transportation: No Lack of Food: Never True Current Housing: I Have Housing Concerned About Future Housing: No Difficulty Paying Gas/Electric Bills: No Difficulty Paying for Meds: No Currently Unemployed: No Education: Bachelor's Degree Difficulty w/ Childcare or Family Care: No Living arrangements: with family Spiritual care concerns: No Meds Home Medications and Allergies Home Medications Medication Instructions Recorded Confirmed Type pregabalin 150 mg capsule (Lyrica) 150 mg PO HS 03/12/20 05/21/23 History aspirin 81 mg chewable tablet 81 mg PO DAILY@0800 #30 tabs 03/14/20 05/21/23 Rx (Children's Aspirin) atorvastatin 40 mg tablet 40 mg PO DAILY #30 tabs 03/14/20 05/21/23 Rx Hydromorphone Pain Pump 4.488 mg implant DAILY pain 04/30/20 05/21/23 History cholecalciferol (vitamin D3) 25 25 mcg PO
[2023-05-21] MEDS: TAMSULOSIN HCL 0.4 MG CAPSULE PO (11:26)
[2023-05-21] MEDS: VITAMIN B COMPLEX CAPSULE 1 CAP PO (11:26)
[2023-05-21] MEDS: DULoxetine HCL 60 MG CAPSULE.DR 120 MG PO (11:26)
[2023-05-21] MEDS: CHOLECALCIFEROL 1,000 UNITS TABLET 1000 UNITS PO (11:26)
[2023-05-21] MEDS: AMOXICILLIN/CLAVULANATE K 875-125 MG TAB 1 TABLET PO ×2 (11:26→20:56)
[2023-05-21] MEDS: MAGNESIUM OXIDE 400 MG TABLET PO (11:26)
[2023-05-21] MEDS: ATORVASTATIN 40 MG TABLET PO (11:26)
[2023-05-21] MEDS: PANTOPRAZOLE 40 MG TABLET PO (11:26)
[2023-05-21] MEDS: FERROUS SULFATE 325 MG TABLET DR PO ×2 (11:26→18:32)
[2023-05-21] MEDS: CYANOCOBALAMIN 1,000 MCG TABLET 1000 MCG PO (11:27)
[2023-05-21] MEDS: ASPIRIN 81 MG CHEWABLE TABLET PO (11:27)
[2023-05-21] MEDS: CARBIDOPA/LEVODOPA 25/100 MG TABLET 3 TABLET PO ×3 (11:28→18:32)
[2023-05-21] MEDS: CARBIDOPA/LEVODOPA 12.5/50 MG TABLET 1 TABLET PO ×3 (11:30→18:32)
[2023-05-21] MEDS: BRIMONIDINE TARTRATE 0.2% OP SOLN 5 ML BTL 1 DROP EACH EYE ×2 (11:31→20:54)
[2023-05-21] MEDS: TIMOLOL MALEATE 0.5% OP SOLN 5 ML BOTTLE 1 DROP EACH EYE ×2 (11:31→20:54)
[2023-05-21] MEDS: DOXYCYCLINE HYCLATE 100 MG TABLET PO ×2 (11:33→20:56)
[2023-05-21] MEDS: KETOROLAC 15 MG/ML VIAL (*BKC) IV PUSH (18:32)
[2023-05-21] MEDS: ALPRAZolam (*CRX) 0.25 MG TABLET PO (18:33)
[2023-05-21] MEDS: lisinopriL 10 MG TABLET PO (20:56)
[2023-05-21] MEDS: PREGABALIN (*CRX) 75 MG CAPSULE 150 MG PO (20:56)
[2023-05-21] MEDS: TIZANIDINE HCL 2 MG TABLET 4 MG PO (20:56)
[2023-05-22] VITALS (12 sets, daily range): BP systolic 97–137; BP diastolic 62–77; PULSE 53–84; RESP 12–20; TEMP 36.4–36.5; O2SAT 90–99
[2023-05-22] MEDS: ALPRAZolam (*CRX) 0.25 MG TABLET PO (00:04)
[2023-05-22] MEDS: KETOROLAC 15 MG/ML VIAL (*BKC) IV PUSH (03:02)
[2023-05-22 05:31] LABS: Basophils Percent Auto 0.6 % (0.2-1.2); Eosinophils Absolute Auto 0.2 K/mm3 (0-0.3); Eosinophils Percent Auto 4.4 % (0-4.4); Hematocrit 39.8 % (42.0-52.0); Hemoglobin 12.4 g/dL (14.0-18.0); Immature Granulocyte Absolute 0.02 K/mm3 (0.00-0.031); Immature Granulocyte Percent A 0.4 % (0-0.5); Lymphocytes Absolute Auto 1.38 K/mm3 (0.9-3.2); Lymphocytes Percent Auto 27.6 % (18.3-44.2); Mean Corpuscular HGB Conc 31.2 g/dl (32-36); Mean Corpuscular Hemoglobin 27.9 pg (26-34); Mean Corpuscular Volume 89.4 fl (80-100); Mean Platelet Volume 10.1 fl (7.4-10.4); Monocytes Absolute Auto 0.4 K/mm3 (0.1-0.6); Monocytes Percent Auto 7.4 % (2.6-8.5); Neutrophils Percent Auto 59.6 % (45.5-73.1); Platelet Count Result 187 k/mm3 (150-375); Red Blood Count 4.45 M/mm3 (4.6-6.20); Red Cell Distribution Width 14.4 % (11.5-14.5)
[2023-05-22 05:35] LABS: Alanine Aminotransferase 8 U/L (6-50); Albumin Level 3.4 g/dL (3.5-5.1); Alkaline Phosphatase 71 U/L (38-126); Anion Gap 5 mmol/L (8-16); Aspartate Amino Transferase 24 U/L (17-59); Bilirubin,Total 0.6 mg/dL (0.2-1.3); Blood Urea Nitrogen 13 mg/dL (9-20); Calcium 8.8 mg/dL (8.4-10.2); Carbon Dioxide 30 mmol/L (22-30); Chloride 103 mmol/L (98-107); Estimated CRCL calculation 105 ml/min; Estimated Glomerular Filt Rate > 60; Glucose 109 mg/dL (65-110); Magnesium 2.4 mg/dL (1.6-2.3); Potassium 3.7 mmol/L (3.4-5.0); Sodium 138 mmol/L (137-145)
[2023-05-22] MEDS: TIMOLOL MALEATE 0.5% OP SOLN 5 ML BOTTLE 1 DROP EACH EYE ×2 (09:46→22:09)
[2023-05-22] MEDS: BRIMONIDINE TARTRATE 0.2% OP SOLN 5 ML BTL 1 DROP EACH EYE ×2 (09:46→22:06)
[2023-05-22] MEDS: ASPIRIN 81 MG CHEWABLE TABLET PO (09:46)
[2023-05-22] MEDS: CARBIDOPA/LEVODOPA 25/100 MG TABLET 3 TABLET PO ×3 (09:46→18:46)
[2023-05-22] MEDS: DULoxetine HCL 60 MG CAPSULE.DR 120 MG PO (09:46)
[2023-05-22] MEDS: CYANOCOBALAMIN 1,000 MCG TABLET 1000 MCG PO (09:46)
[2023-05-22] MEDS: PANTOPRAZOLE 40 MG TABLET PO (09:46)
[2023-05-22] MEDS: CARBIDOPA/LEVODOPA 12.5/50 MG TABLET 1 TABLET PO ×3 (09:46→18:46)
[2023-05-22] MEDS: ATORVASTATIN 40 MG TABLET PO (09:46)
[2023-05-22] MEDS: TAMSULOSIN HCL 0.4 MG CAPSULE PO (09:46)
[2023-05-22] MEDS: DOXYCYCLINE HYCLATE 100 MG TABLET PO ×2 (09:46→20:53)
[2023-05-22] MEDS: AMOXICILLIN/CLAVULANATE K 875-125 MG TAB 1 TABLET PO ×2 (09:46→20:53)
[2023-05-22] MEDS: CHOLECALCIFEROL 1,000 UNITS TABLET 1000 UNITS PO (09:46)
[2023-05-22] MEDS: VITAMIN B COMPLEX CAPSULE 1 CAP PO (09:46)
[2023-05-22] MEDS: ACETAMINOPHEN 325 MG TABLET 650 MG PO ×2 (12:51→20:59)
--- NOTE | 2023-05-22 12:58 | ECG_ITS ---
Measurements Intervals Reading Rate: 83 P: 32 NV: 151 QRS: -4 QRSD: 83 T: 25 QT: 348 QTc: 409 Interpretive Statements SINUS RHYTHM EARLY PRECORDIAL R/S TRANSITION NONSPECIFIC T-WAVE ABNORMALITY- INF/HIGH LAT LEADS BASELINE ARTIFACT- III, AVL, AVF BORDERLINE ECG COMPARED TO ECG 05/20/2023 18:43:32 NO SIGNIFICANT CHANGES Electronically Signed On 05-22-2023 19:15:05 PHARMACEUTICAL SERVICE REPRESENTATIVE by Yusuf Deluca D.O.
--- NOTE | 2023-05-22 12:58 | PM.IMPN ---
Progress Note: A&P Assessment and Plan (1) Lower extremity cellulitis: Qualifiers: Laterality: right Qualified Code(s): L03.115 - Cellulitis of right lower limb Code(s): L03.119 - Cellulitis of unspecified part of limb Status: Acute Assessment and Plan: Continue antibiotics. (2) Parkinson's disease: Code(s): G20.A1 - Parkinson's disease without dyskinesia, without mention of fluctuations Status: Acute Assessment and Plan: Stable current meds, continue. (3) Essential (primary) hypertension: Code(s): I10 - Essential (primary) hypertension Status: Chronic Assessment and Plan: Stable on [facility] meds[facility] (4) Debility: Code(s): R53.81 - Other malaise Status: Acute Assessment and Plan: Physical therapy when stable. (5) Abnormal cardiac enzyme level: Code(s): R74.8 - Abnormal levels of other serum enzymes Status: Acute Assessment and Plan: Cardiac consult, trend enzymes Plan Generalized weakness PT OT to see Right leg cellulitis continue antibiotics as ordered improving Elevated troponin with flat trend parkinson's disease resume carbidopa levodopa home dose History of recurrent falls Chronic pain syndrome on hydromorphone pain pump Hypertension Hyperlipidemia Coronary artery disease status post stent in the past last stent in September of 2021. Used to be on dual antiplatelet therapy. Currently on aspirin alone. History of GI bleed with gastritis/esophagitis findings on EGD 11/2022 improved on repeat EGD on 02/2023. Gastric emptying study was normal back surgery 1986 at L4 and 5 with PTS after with residual chronic back pain and sciatica neurogenic bladder Generalized neuropathy History of chronic alcoholism DVT prophylaxis Lovenox Code status full code Subjective Date/time seen: 05/22/23 12:58 Interval history: Patient was seen during the morning rounds today. Denies chest pain. No sob No abdominal pain or nausea. Review of Systems Review of Systems: - CONSTITUTIONAL: Denies weight loss, fever and chills. - HEENT: Denies changes in vision and hearing - RESPIRATORY: Denies SOB and cough. - CV: Denies palpitations and CP. - GI: Denies abdominal pain, nausea, vomiting and diarrhea. - : Denies dysuria and urinary frequency. - MSK: Denies myalgia and joint pain. - SKIN: Denies rash and pruritus. - NEUROLOGICAL: Reports headache and denies syncope. See HPI - PSYCHIATRIC: Denies recent changes in mood. Denies anxiety and depression. Exam Narrative: GENERAL: Elderly male laying in bed in no acute distress, pleasant and cooperative HEAD: Normocephalic, atraumatic. EYES: PERRLA and EOMI. ENT: Grossly unremarkable NECK: Supple. CHEST: Clear to auscultation.? No respiratory distress. HEART: Regular rate and rhythm ABDOMEN: Soft, nontender, nondistended EXTREMITIES: Normal range of motion.? Lower extremity edema trace to 1+ right more than left SKIN: Warm, dry, lesion on lateral RLE at site of biopsy with surrounding cellulitis NEURO: Alert and oriented x3. Bradykinesia noted PSYCH: Flat affect. Objective Data Vital Signs Vital Signs: Vital Signs - 24 hr 05/21/23 15:58 05/21/23 14:00 05/21/23 16:00 Temperature 36.8 C Pulse Rate 64 62 62 Respiratory Rate 22 H Blood Pressure 148/83 H Pulse Oximetry 93 Oxygen Delivery 05/21/23 18:00 05/21/23 16:00 05/21/23 20:00 Temperature Pulse Rate 63 Respiratory Rate Blood Pressure Pulse Oximetry 95 Oxygen Delivery Room Air Room Air 05/21/23 23:45 05/22/23 00:00 05/21/23 20:00 Temperature 36.6 C Pulse Rate 68 63 Respiratory Rate 20 Blood Pressure 150/85 H Pulse Oximetry 94 Oxygen Delivery Room Air 05/21/23 22:00 05/22/23 00:00 05/22/23 02:00 Temperature Pulse Rate 61 59 L 53 L Respiratory Rate Blood Pressure Pulse Oximetry Oxygen Deliver
[2023-05-22] MEDS: FERROUS SULFATE 325 MG TABLET DR PO (14:24)
[2023-05-22] MEDS: MAGNESIUM OXIDE 400 MG TABLET PO (14:24)
[2023-05-22] MEDS: ENOXAPARIN 40 MG/0.4 ML SYRINGE SUB-Q (14:27)
--- NOTE | 2023-05-22 15:40 | PC.NURSE ---
This patient, Joe Wellington, was received from IMU on 05/22/23 at 1540. Patient/family oriented to unit policies and routines
--- NOTE | 2023-05-22 15:43 | PC.NURSE ---
This patient, Joe Wellington, was transferred to [facility] on 05/22/23 at 1543. Personal belongings sent with patient. Report given to 248. Appropriate documentation sent with patient.
[2023-05-22] MEDS: NEOMYCIN/POLYMYXIN/DEXAMETH OP OINT 3.5 GM TUBE 1 APPLIC RIGHT EYE ×2 (16:44→22:16)
[2023-05-22] MEDS: PREGABALIN (*CRX) 75 MG CAPSULE 150 MG PO (20:53)
[2023-05-22] MEDS: lisinopriL 10 MG TABLET PO (20:54)
[2023-05-22] MEDS: TIZANIDINE HCL 2 MG TABLET 4 MG PO (20:59)
[2023-05-23] VITALS (9 sets, daily range): BP systolic 108–141; BP diastolic 59–80; PULSE 50–68; RESP 15–20; TEMP 36.1–36.8; O2SAT 16–96
[2023-05-23] MEDS: NEOMYCIN/POLYMYXIN/DEXAMETH OP OINT 3.5 GM TUBE 1 APPLIC RIGHT EYE ×3 (05:55→17:44)
[2023-05-23] MEDS: ENOXAPARIN 40 MG/0.4 ML SYRINGE SUB-Q (08:53)
[2023-05-23] MEDS: DULoxetine HCL 60 MG CAPSULE.DR 120 MG PO (08:54)
[2023-05-23] MEDS: ASPIRIN 81 MG CHEWABLE TABLET PO (08:54)
[2023-05-23] MEDS: CYANOCOBALAMIN 1,000 MCG TABLET 1000 MCG PO (08:55)
[2023-05-23] MEDS: ATORVASTATIN 40 MG TABLET PO (08:55)
[2023-05-23] MEDS: PANTOPRAZOLE 40 MG TABLET PO (08:55)
[2023-05-23] MEDS: AMOXICILLIN/CLAVULANATE K 875-125 MG TAB 1 TABLET PO ×2 (08:56→20:29)
[2023-05-23] MEDS: VITAMIN B COMPLEX CAPSULE 1 CAP PO (08:56)
[2023-05-23] MEDS: TAMSULOSIN HCL 0.4 MG CAPSULE PO (08:56)
[2023-05-23] MEDS: CHOLECALCIFEROL 1,000 UNITS TABLET 1000 UNITS PO (08:56)
[2023-05-23] MEDS: DOXYCYCLINE HYCLATE 100 MG TABLET PO ×2 (08:57→20:29)
[2023-05-23] MEDS: BRIMONIDINE TARTRATE 0.2% OP SOLN 5 ML BTL 1 DROP EACH EYE ×2 (08:58→20:41)
[2023-05-23] MEDS: TIMOLOL MALEATE 0.5% OP SOLN 5 ML BOTTLE 1 DROP EACH EYE ×2 (09:06→20:50)
[2023-05-23] MEDS: CARBIDOPA/LEVODOPA 25/100 MG TABLET 3 TABLET PO ×3 (09:13→17:43)
[2023-05-23] MEDS: CARBIDOPA/LEVODOPA 12.5/50 MG TABLET 1 TABLET PO ×3 (09:14→17:43)
[2023-05-23] MEDS: ALBUTEROL SULFATE (*SP) AEROSOL 1 PUFF 2 PUFF INHALATION (09:33)
--- NOTE | 2023-05-23 11:19 | PC.NURSE ---
Patient care and medication administration performed by Iman Mayfield Student Nurse/[facility] under direct supervision of [employer] instructor or nursing staff. Patient assessment reviewed and agree with same.
[2023-05-23] MEDS: FERROUS SULFATE 325 MG TABLET DR PO ×2 (11:32→17:10)
[2023-05-23] MEDS: MAGNESIUM OXIDE 400 MG TABLET PO (11:32)
--- NOTE | 2023-05-23 15:51 | PM.CNCAR ---
Assessment and Plan Assessment and plan (1) Elevated troponin: Code(s): R79.89 - Other specified abnormal findings of blood chemistry Status: Acute Plan 73-year-old man known to have coronary disease with previous intervention revascularization of his LAD most recently September of 2021. He enters the hospital and being treated for some cellulitis of his lower extremity. For some reason in this setting troponin levels were sampled. I do not have any clinical that I can see where this would have been done. In any event the troponin levels are barely out of normal range and are flat and there is no evidence in my opinion to be concerned about an acute coronary problem at this time. I will insure that acts appropriate follow-up with him in my partner Dr. Baker are scheduled in the office. Cardiology will not continue to follow him in the hospital if he needs our help please let me know Mike Alfonso MD [facility] History of Present Illness History of Present Illness Consult date/time: 05/23/23 15:51 Reason For Visit: Elevated Troponin Narrative: This is a 73-year-old man who has a history of coronary artery disease with previous percutaneous revascularization. Am seeing him at the request of the hospitalist because his troponin is elevated out of normal range. The patient came to the hospital over the weekend complaining of discomfort and swelling in his lower extremity was found to have cellulitis. He also was very weak in his lower extremities and had a very difficult time standing and or ambulating. In this setting for reasons that are not explained in the chart serial troponin levels were done and they are just barely out of normal range at 0.03 and flat without rise or fall pattern. The patient is not complaining of any pain pressure or symptoms in the chest that would indicate concern regarding ischemic coronary problems and his electrocardiogram does not show any acute findings. The patient has a history of coronary disease with previous PCI in the LAD he actually underwent repeat LAD intervention in September of 2021 at this hospital with deploying another stent in the LAD and a balloon dilating the ostium of his 2nd diagonal branch which was jailed by that stent. He has been doing well and been following in the office with my partner, Dr. Baker. He does not have any active cardiac complaints at this time. Review of Systems Constitutional: Constitutional: Reports no additional constitutional complaints Eyes: Eyes: Reports no additional eye complaints ENT: Reports system reviewed and no additional complaints, except as documented Cardiovascular: Cardiovascular: Reports no additional cardiovascular complaints Respiratory: Respiratory: Reports no additional respiratory complaints Gastrointestinal: Gastrointestinal: Reports no additional gastrointestinal complaints Musculoskeletal: Comments: Lower extremity weakness Integumentary/Breasts: Skin/Breast: Reports system reviewed and no additional complaints, except as docu Neurologic: Reports as per HPI Endocrine: Endocrine: Reports no additional endocrine complaints Hematologic/Lymphatic: Hematologic/Lymphatic: Reports no additional hematologic/lymphatic complaints Allergic/Immunologic: Allergic/Immunologic: Reports no additional allergic/immunologic complaints PMFSH Past Medical History Medical History Actinic keratoses Chronic pain syndrome Pain pump. Coffee ground emesis Coronary artery disease Depression Essential (primary) hypertension Fracture of lumbar spine History of seizure Attributed to tramadol. Myocardial infarction Neurogenic bladder Parkinsonism Pelvic fracture Traumatic brain injury Urethral stricture Surgical History Surgical History History of appendectomy History of cardiac catheterization 03/13/2020,
--- NOTE | 2023-05-23 19:00 | PM.IMPN ---
Progress Note: A&P Assessment and Plan (1) Elevated troponin: Code(s): R79.89 - Other specified abnormal findings of blood chemistry Status: Acute (2) Anxiety: Code(s): F41.9 - Anxiety disorder, unspecified Status: Acute (3) Abnormal cardiac enzyme level: Code(s): R74.8 - Abnormal levels of other serum enzymes Status: Acute (4) Lower extremity cellulitis: Qualifiers: Laterality: right Qualified Code(s): L03.115 - Cellulitis of right lower limb Code(s): L03.119 - Cellulitis of unspecified part of limb Status: Acute (5) GERD (gastroesophageal reflux disease): Code(s): K21.9 - Gastro-esophageal reflux disease without esophagitis Status: Acute (6) Vitamin D deficiency: Code(s): E55.9 - Vitamin D deficiency, unspecified Status: Acute (7) Hyperlipidemia: Code(s): E78.5 - Hyperlipidemia, unspecified Status: Acute (8) Wounds, multiple: Code(s): T07.XXXA - Unspecified multiple injuries, initial encounter Status: Acute Plan 1. Mild LE cellulitis ct augmentin and doxy. ok for dc 2. Elevated troponin seen by cardiology. not having acs ok to stop trending 3. Panic attack Can discuss with PCP regarding outpt meds to prevent 4. Chronic pain syndrome ct dilaudid pump 5. CAD with hx of stent in 09/2021 ct asa add plavix. concern his event was a cardiac event Generalized weakness PT OT to see Right leg cellulitis continue antibiotics as ordered improving Elevated troponin with flat trend parkinson's disease resume carbidopa levodopa home dose History of recurrent falls Chronic pain syndrome on hydromorphone pain pump Hypertension Hyperlipidemia Coronary artery disease status post stent in the past last stent in September of 2021.? Used to be on dual antiplatelet therapy.? Currently on aspirin alone. History of GI bleed with gastritis/esophagitis findings on EGD 11/2022 improved on repeat EGD on 02/2023.? Gastric emptying study was normal back surgery 1986 at L4 and 5 with PTS after with residual chronic back pain and sciatica ?neurogenic bladder Generalized neuropathy History of chronic alcoholism DVT prophylaxis Lovenox Code status full code Subjective Date/time seen: 05/23/23 19:00 Interval history: no issues or complaints. panic attack that brought the pt here has resolved Review of Systems Review of Systems: none Exam Narrative: GENERAL: Elderly male laying in bed in no acute distress, pleasant and cooperative HEAD: Normocephalic, atraumatic. EYES: PERRLA and EOMI. ENT: Grossly unremarkable NECK: Supple. CHEST: Clear to auscultation.? No respiratory distress. HEART: Regular rate and rhythm ABDOMEN: Soft, nontender, nondistended EXTREMITIES: Normal range of motion.? Lower extremity edema trace to 1+ right more than left SKIN: Warm, dry, lesion on lateral RLE at site of biopsy with surrounding cellulitis NEURO: Alert and oriented x3.? Bradykinesia noted PSYCH:? Flat affect. Objective Data Vital Signs Vital Signs: Vital Signs - 24 hr 05/22/23 19:39 05/22/23 20:00 05/22/23 22:55 Temperature 97.7 F 97.5 F L Pulse Rate 60 61 Respiratory Rate 16 16 Blood Pressure 115/77 114/62 Pulse Oximetry 96 94 Oxygen Delivery Room Air 05/23/23 03:30 05/23/23 09:34 05/23/23 09:15 Temperature 97.7 F Pulse Rate 51 L 53 L Respiratory Rate 16 20 Blood Pressure 141/80 H Pulse Oximetry 95 Oxygen Delivery Room Air 05/23/23 08:00 05/23/23 08:53 05/23/23 11:25 Temperature 97.6 F 97.3 F L 97.0 F L Pulse Rate 50 L 51 L 55 L Respiratory Rate 15 16 18 Blood Pressure 118/59 L 132/75 123/67 Pulse Oximetry 92 96 96 Oxygen Delivery 05/23/23 12:00 05/23/23 15:59 05/23/23 16:00 Temperature 97.6 F 98.3 F 97.7 F Pulse Rate 56 L 65 68 Respiratory Rate 16 16 18 Blood Pressure 122/60 108/69 124/68 Pulse Oximetry 94 95 16 L Oxygen Delivery Intake/Output Intake/Ou
[2023-05-23] MEDS: ACETAMINOPHEN 325 MG TABLET 650 MG PO (20:29)
[2023-05-23] MEDS: lisinopriL 10 MG TABLET PO (20:29)
[2023-05-23] MEDS: TIZANIDINE HCL 2 MG TABLET 4 MG PO (20:29)
[2023-05-23] MEDS: PREGABALIN (*CRX) 75 MG CAPSULE 150 MG PO (20:29)
[2023-05-23] MEDS: CLOPIDOGREL BISULFATE 75 MG TABLET PO (20:29)
[2023-05-24] VITALS: BP 126/73; PULSE 60; RESP 14; TEMP 36.5; O2SAT 94
[2023-05-24] MEDS: NEOMYCIN/POLYMYXIN/DEXAMETH OP OINT 3.5 GM TUBE 1 APPLIC RIGHT EYE ×3 (00:04→12:02)
[2023-05-24] MEDS: ACETAMINOPHEN 325 MG TABLET 650 MG PO (02:56)
[2023-05-24 03:21] VITALS: BP 120/69; PULSE 59; RESP 14; TEMP 36.4; O2SAT 96
[2023-05-24 07:55] VITALS: RESP 16; O2SAT 96
[2023-05-24] MEDS: DULoxetine HCL 60 MG CAPSULE.DR 120 MG PO (08:58)
[2023-05-24] MEDS: DOXYCYCLINE HYCLATE 100 MG TABLET PO (08:58)
[2023-05-24] MEDS: VITAMIN B COMPLEX CAPSULE 1 CAP PO (08:58)
[2023-05-24] MEDS: CYANOCOBALAMIN 1,000 MCG TABLET 1000 MCG PO (08:59)
[2023-05-24] MEDS: ATORVASTATIN 40 MG TABLET PO (08:59)
[2023-05-24] MEDS: CHOLECALCIFEROL 1,000 UNITS TABLET 1000 UNITS PO (08:59)
[2023-05-24] MEDS: AMOXICILLIN/CLAVULANATE K 875-125 MG TAB 1 TABLET PO (08:59)
[2023-05-24] MEDS: PANTOPRAZOLE 40 MG TABLET PO (09:00)
[2023-05-24] MEDS: TAMSULOSIN HCL 0.4 MG CAPSULE PO (09:00)
[2023-05-24] MEDS: CARBIDOPA/LEVODOPA 25/100 MG TABLET 3 TABLET PO ×2 (09:04→12:27)
[2023-05-24] MEDS: CARBIDOPA/LEVODOPA 12.5/50 MG TABLET 1 TABLET PO ×2 (09:07→12:28)
[2023-05-24] MEDS: TIMOLOL MALEATE 0.5% OP SOLN 5 ML BOTTLE 1 DROP EACH EYE (09:11)
[2023-05-24] MEDS: BRIMONIDINE TARTRATE 0.2% OP SOLN 5 ML BTL 1 DROP EACH EYE (09:12)
[2023-05-24] MEDS: ASPIRIN 81 MG CHEWABLE TABLET PO (09:40)
[2023-05-24] MEDS: CLOPIDOGREL BISULFATE 75 MG TABLET PO (09:40)
[2023-05-24 10:22] VITALS: BP 107/68; PULSE 60; RESP 18; TEMP 36.4; O2SAT 95
--- NOTE | 2023-05-24 10:47 | PM.DS ---
DS: Admitting Diagnosis Discharge Date 05/24/23 Admitting Diagnosis malaise DS: Discharge Diagnosis Discharge Diagnosis (1) Lower extremity cellulitis: Qualifiers: Laterality: right Qualified Code(s): L03.115 - Cellulitis of right lower limb Code(s): L03.119 - Cellulitis of unspecified part of limb Status: Acute DS: Summary Hospital Course Hospital Course: 73M w/ PMH CAD w/ hx of stent in 09/29, parkinson's disease, recurrent falls, chronic pain syndrome on pain pump, HTN, HLD, hx of GI bleed , neurogenic bladder, neuropathy, hx of chronic alcoholism presented with malaise. evaluated by PT/OT and deemed safe to return home with home health. cellulitis RLE non purulent improved, he was taking augmentin and doxycycline prior to admission so we will continue those abx for another 5 days. it developed post cryo therapy for actinic keratosis. he knows to report to ER if he has return of symptoms. f/u with PCP within 2 weeks for a mildly elevated troponin which may have been drawn without basis, cardiology was consulted. no changes made and patient is to f/u with cardiology outpatient. he was chest pain free and did not acute ischemic changes he was full code during the admission More than 30 minutes spent on discharge planning and documentation. Time Spent with Patient Time attestation: Total time spent providing and/or coordinating discharge services: Exam Const: General: cooperative and no acute distress Resp: Effort & Inspection: normal respiratory effort Auscultation: clear to auscultation bilaterally Cardio: Rate: regular rate Rhythm: regular rhythm Heart sounds: S1 normal heart sound present and S2 normal heart sound present GI: GI Palp: No abdominal tenderness Auscultation: normal bowel sounds Skin: Other: RLE erythema greatly improved. non draining healing lesion Discharge Plan Discharge Attending physician on discharge: Nessa Hernández Consulting providers: Daria Winn Discharging Clinician: Nessa Hernández Patient Disposition: Home, Self-Care Activity: may shower Diet: heart healthy Discharge Instructions: [facility] to resume services at discharge. [facility] can be contacted at [phone]. They will contact you to arrange next visit. RN, please fax discharge instructions to [phone] once complete. Thank you. Patient Instructions: Antibiotic Form, Pain Management (DC), High Troponin Levels (GEN) Stand Alone Forms: General Discharge Information Follow-up/Referrals: Weston Baker MD [Physician] - 4 Weeks Mike Mcwilliams MD [Primary Care Provider] - 2 Weeks (cellulitis, aspirin and plavix use) Discharge Medications: New doxycycline hyclate 100 mg Tablet 100 mg PO Q12HR 5 Days Qty: 10 0RF amoxicillin-pot clavulanate 875-125 mg tablet 1 tablet PO Q12H 5 Days Qty: 10 0RF Continued cyanocobalamin (vitamin B-12) 1,000 mcg capsule 1,000 mcg PO DAILY duloxetine [Cymbalta] 60 mg capsule,delayed release(DR/EC) 120 mg PO DAILY Qty: 180 3RF pregabalin [Lyrica] 150 mg Capsule 150 mg PO HS Hold Instructions: Patient Condition aspirin [Children's Aspirin] 81 mg Tablet,Chewable 81 mg PO DAILY@0800 Qty: 30 11RF atorvastatin 40 mg Tablet 40 mg PO DAILY Qty: 30 3RF vitamin B complex Capsule 1 cap PO DAILY cholecalciferol (vitamin D3) [Vitamin D3] 25 mcg (1,000 unit) Capsule 25 mcg PO DAILY Hydromorphone Pain Pump 4.488 mg implant DAILY carbidopa-levodopa 25-100 mg tablet 3.5 tablet PO TID d-mannose 500 mg Capsule 500 mg PO DAILY ferrous sulfate 325 mg (65 mg iron) tablet,delayed release (DR/EC) 325 mg PO BID neomycin-polymyxin B-dexameth [Maxitrol] 3.5 mg/g-10,000 unit/g-0.1 % ointment 1 applic RIGHT EYE Q6H lisinopril 10 mg tablet 10 mg PO HS Qty: 90 3RF tizanidine 2 mg Tablet 4 mg PO TID PRN (Reason: muscle spas
[2023-05-24] MEDS: DOCUSATE SODIUM 100 MG CAPSULE PO (12:02)
[2023-05-24] MEDS: MAGNESIUM OXIDE 400 MG TABLET PO (12:02)
== END 2023-05-24 13:00 | disposition home health service (06) | DRG 603 ==
LOC: ANHED 19:17 → ANHIMU 22:59 → ANH2MED 05-22 16:08
PROVIDERS: Internal Medicine; Admitting Provider Internal Medicine; Emergency Provider Emergency Medicine; PCP Family Medicine; Visit Provider General Practice
DX: L03.115 Cellulitis of right lower limb (principal); I10 Essential (primary) hypertension; I25.10 Atherosclerotic heart disease of native coronary artery without angina pectoris; E78.5 Hyperlipidemia, unspecified; E55.9 Vitamin D deficiency, unspecified; K21.9 Gastro-esophageal reflux disease without esophagitis; N31.9 Neuromuscular dysfunction of bladder, unspecified; R79.89 Other specified abnormal findings of blood chemistry; R29.6 Repeated falls; G20.A1 Parkinson's disease without dyskinesia, without mention of fluctuations; G89.4 Chronic pain syndrome; I25.2 Old myocardial infarction; F10.21 Alcohol dependence, in remission; F32.A Depression, unspecified; F41.9 Anxiety disorder, unspecified; Z96.89 Presence of other specified functional implants; Z87.820 Personal history of traumatic brain injury; Z95.5 Presence of coronary angioplasty implant and graft; Z87.891 Personal history of nicotine dependence; Z79.82 Long term (current) use of aspirin
CPT/HCPCS: 36415; 70450; 71045; 80053; 81001; 83690; 83735; 84484; 85025; 93005; 93306; 93970; 94640; 96361; 96374; 96375; 96376; 97110; 97161; 97165; 97530; 97535; 99285; A9270; G0378; J1650; J1885; J2060; J2405; J7030

== ENCOUNTER 2023-06-07 12:51 | Emergency (ER) | payer MEDICARE, OTHER, SELFPAY ==
--- NOTE | ~2023-06-07 | XR_ITS ---
XR wrist RT min 3V 06/07/2023 13:13 Indication: Status post fall. Wrist pain. Procedure: 4 views right wrist Comparison: 04/29/2005 Findings: There is severe polyarticular osteoarthritis involving the radiocarpal, triscaphe, first ca rpal metacarpal and metacarpal phalangeal joints. There is chondrocalcinosis. There is been interval progression of radial carpal osteoarthritis with widening of the scapholunate space, consistent with scapholunate dissociation. No acute fracture is identified. 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 Reviewed, dictated and finalized at location L. 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
[2023-06-07 13:04] VITALS: BP 134/77; PULSE 96; RESP 16; TEMP 36.7; O2SAT 96
--- NOTE | 2023-06-07 13:26 | ED.UPPEXIN ---
HPI - Extremity Injury (Upper) General Chief Complaint: Extremity Injury, Upper Stated Complaint: R WRIST INJURY Source: patient Mode of arrival: ambulatory Limitations: no limitations History of Present Illness HPI narrative: 73-year-old male presented for complaint of right wrist pain and swelling for about 3 days following a fall. Patient states he has severe in the wrist, and gets steroid injections occasionally. He denies deformity, numbness, tingling, weakness of the hand. He states he has decreased range of motion at the wrist due to pain. For years he has been using athletic tape to wrap the wrist for support. Contacted his customer engagement specialist, and plans to f/u with them this week. Related Data Home Medications Medication Instructions Recorded Confirmed pregabalin 150 mg capsule (Lyrica) 150 mg PO HS 03/12/20 05/30/23 Hydromorphone Pain Pump 4.488 mg implant DAILY pain 04/30/20 05/30/23 cholecalciferol (vitamin D3) 25 25 mcg PO DAILY 04/30/20 05/30/23 mcg (1,000 unit) capsule (Vitamin D3) vitamin B complex 1 cap PO DAILY 04/30/20 05/30/23 cyanocobalamin (vitamin B-12) 1,000 mcg PO DAILY 08/12/21 05/30/23 1,000 mcg capsule carbidopa 25 mg-levodopa 100 mg 3.5 tablet PO TID 11/14/22 05/30/23 tablet d-mannose 500 mg capsule 500 mg PO DAILY 11/14/22 05/30/23 neomycin 3.5 mg/g-polymyxin B 1 applic RIGHT EYE Q6H 05/21/23 05/30/23 10,000 unit/g-dexameth 0.1 % eye oint (Maxitrol) Allergies Allergy/AdvReac Type Severity Reaction Status Date / Time tramadol Allergy Mild SEIZURE Verified 05/30/23 11:03 ticagrelor [From Brilinta] AdvReac Dyspnea / Verified 05/30/23 11:03 SOB Review of Systems Review of Systems: CONSTITUTIONAL: Denies body aches, fever, chills EYES: Denies visual changes ENT: Denies rhinorrhea, congestion CARDIOVASCULAR: Denies chest pain, palpitations, or edema. RESPIRATORY: Denies cough or dyspnea. GASTROINTESTINAL: Denies abdominal pain, nausea, vomiting, or diarrhea. SKIN: Denies rash, itching, or wounds. MUSCULOSKELETAL: Reports right wrist pain denies back pain myalgia. NEUROLOGIC: Denies headache, numbness, tingling, or weakness. PSYCH: Denies depression or anxiety. All systems reviewed & are unremarkable except as noted in HPI and below PMFSH Past Medical History Medical History Actinic keratoses Chronic pain syndrome Pain pump. Coffee ground emesis Coronary artery disease Depression Essential (primary) hypertension Fracture of lumbar spine History of seizure Attributed to tramadol. Myocardial infarction Neurogenic bladder Parkinsonism Pelvic fracture Traumatic brain injury Urethral stricture Surgical History Surgical History History of appendectomy History of cardiac catheterization 03/13/2020, 03/20/2021, 09/11/2021 History of cholecystectomy History of coronary artery stent placement History of dilation of urethra History of esophagogastroduodenoscopy (EGD) History of lumbar surgery History of partial colectomy History of tonsillectomy Status post glaucoma surgery Family History Family History Mother Diabetes mellitus Patient's mother is Father Patient's father is Sibling Breast cancer Cancer Son Thyroid cancer Melanoma Social History Social History Social History: Surrogate medical decision maker: Madan Wellington (son) or Stefanie Wellington (spouse). Code status: Full code. Smoking packs per day: 1 Smoking cigarettes per day: 20.0 Years smoked: 3 Smoking pack-years: 3.00 Smoking status: Former smoker Second hand tobacco smoke exposure: No Alcohol intake: never Substance use: never Substance use type: does not use Last use: quit drinking about a year ago when sta
== END 2023-06-07 13:39 | disposition home or self-care (01) ==
PROVIDERS: Emergency Provider Nurse Practitioner Family; PCP Family Medicine
DX: M25.531 Pain in right wrist (principal); Z87.891 Personal history of nicotine dependence; I25.10 Atherosclerotic heart disease of native coronary artery without angina pectoris; I10 Essential (primary) hypertension; I25.2 Old myocardial infarction; G20.A1 Parkinson's disease without dyskinesia, without mention of fluctuations; Z95.5 Presence of coronary angioplasty implant and graft
CPT/HCPCS: 73110; 99213; G0463

== ENCOUNTER 2023-06-14 17:36 | Emergency (ER) | payer MEDICARE, OTHER, SELFPAY ==
--- NOTE | ~2023-06-14 | XR_ITS ---
EXAMINATION: XR chest 2V Exam Date/Time: 06/14/2023 23:22 [employer] HISTORY: weakness shakiness and anxiety recent leg infection on abx Comparison: 05/20/2023. RESULT: Lines, tubes, and devices: None. Lungs and pleura: Low volumes with crowding. Senescent changes. Streaky bibasilar scar/atelectasis. Cardiomediastinal silhouette: Stable. Other: No acute osseous or upper abdominal finding. IMPRESSION: No acute cardiopulmonary process. Reviewed, dictated and finalized at location K. [employer]
[2023-06-14 18:04] VITALS: BP 146/79; PULSE 65; RESP 20; TEMP 36.1; O2SAT 96
--- NOTE | 2023-06-14 19:13 | ECG_ITS ---
Measurements Intervals Hardy Rate: 59 P: 34 OK: 197 QRS: -12 QRSD: 86 T: 6 QT: 398 QTc: 395 Interpretive Statements SINUS BRADYCARDIA COMPARED TO ECG 05/22/2023 13:17:04 SINUS BRADYCARDIA NOW PRESENT Electronically Signed On 06-14-2023 20:27:10 BUTTERMAKER CONTINUOUS CHURN by Marilyn Doss M.D.
[2023-06-14 22:19] VITALS: BP 183/80; PULSE 60; RESP 21; O2SAT 100
[2023-06-14 22:20] VITALS: O2SAT 95
--- NOTE | 2023-06-14 22:37 | PC.NURSE ---
Patient states that he is getting hot and shaky. Patient's temperature was taken orally and measured at 98. Patient also states he has anxiety.
--- NOTE | 2023-06-14 23:13 | ED.GENADULT ---
HPI - General Adult General Chief complaint: Nausea/Vomiting/Diarrhea Stated complaint: NAUSEA,SHAKY Time Seen by Provider: 06/14/23 23:05 Source: patient and family Mode of arrival: EMS Limitations: no limitations History of Present Illness HPI narrative: This is a 73-year-old male that presents to the emergency department for elevated blood pressure. Patient reports he has felt feeling anxious and shaky. Also reports some nausea. He is not taken his anxiety medication. He takes lisinopril for his blood pressure. He has not taken this today. Denies chest pain, abdominal pain or shortness of breath. Related Data Home Medications Medication Instructions Recorded Confirmed pregabalin 150 mg capsule (Lyrica) 150 mg PO HS 03/12/20 05/30/23 Hydromorphone Pain Pump 4.488 mg implant DAILY pain 04/30/20 05/30/23 cholecalciferol (vitamin D3) 25 25 mcg PO DAILY 04/30/20 05/30/23 mcg (1,000 unit) capsule (Vitamin D3) vitamin B complex 1 cap PO DAILY 04/30/20 05/30/23 cyanocobalamin (vitamin B-12) 1,000 mcg PO DAILY 08/12/21 05/30/23 1,000 mcg capsule carbidopa 25 mg-levodopa 100 mg 3.5 tablet PO TID 11/14/22 05/30/23 tablet d-mannose 500 mg capsule 500 mg PO DAILY 11/14/22 05/30/23 neomycin 3.5 mg/g-polymyxin B 1 applic RIGHT EYE Q6H 05/21/23 05/30/23 10,000 unit/g-dexameth 0.1 % eye oint (Maxitrol) Allergies Allergy/AdvReac Type Severity Reaction Status Date / Time tramadol Allergy Mild SEIZURE Verified 05/30/23 11:03 ticagrelor [From Brilinta] AdvReac Dyspnea / Verified 05/30/23 11:03 SOB Review of Systems Review of Systems: CONSTITUTIONAL: Denies fever CARDIOVASCULAR: Denies chest pain RESPIRATORY: Denies dyspnea. GASTROINTESTINAL: Reports nausea. Denies abdominal pain, vomiting PSYCHIATRIC: Reports anxiety All systems reviewed & are unremarkable except as noted in HPI and below PMFSH Past Medical History Medical History Actinic keratoses Chronic pain syndrome Pain pump. Coffee ground emesis Coronary artery disease Depression Essential (primary) hypertension Fracture of lumbar spine History of seizure Attributed to tramadol. Myocardial infarction Neurogenic bladder Parkinsonism Pelvic fracture Traumatic brain injury Urethral stricture Surgical History Surgical History History of appendectomy History of cardiac catheterization 03/13/2020, 03/20/2021, 09/11/2021 History of cholecystectomy History of coronary artery stent placement History of dilation of urethra History of esophagogastroduodenoscopy (EGD) History of lumbar surgery History of partial colectomy History of tonsillectomy Status post glaucoma surgery Family History Family History Mother Diabetes mellitus Patient's mother is Father Patient's father is Sibling Breast cancer Cancer Son Thyroid cancer Melanoma Social History Social History Social History: Surrogate medical decision maker: Madan Wellington (son) or Stefanie Wellington (spouse). Code status: Full code. Smoking packs per day: 1 Smoking cigarettes per day: 20.0 Years smoked: 3 Smoking pack-years: 3.00 Smoking status: Former smoker Second hand tobacco smoke exposure: No Alcohol intake: never Substance use: never Substance use type: does not use Last use: quit drinking about a year ago when started on Parkinson's med Lack of Transportation: No Lack of Food: Never True Current Housing: I Have Housing Concerned About Future Housing: No Difficulty Paying Gas/Electric Bills: No Difficulty Paying for Meds: No Currently Unemployed: No Education: Bachelor's Degree Difficulty w/ Childcare or Family Care: No Living arrangements: with family Spiritual care concerns: N
[2023-06-14 23:33] LABS: Appearance Urine Cloudy (Clear); Bacteria Urine None Seen /hpf; Bilirubin Urine Negative (Negative); Blood Urine Negative (Negative); Color Urine Yellow (Yellow); Glucose Urine UA Negative (Negative); Ketones Urine Negative (Negative); Leukocyte Esterase Ur Negative LEU/UL (Negative); Nitrate Urine Negative (Negative); Non Pathogenic Casts 0-2; Protein Urine Negative (Negative); RBC Urine 0-2 /hpf (0-2); Specific Grav Ur 1.013 (1.001-1.035); Squamous Epithelial Cell Urine None seen /hpf (Few); WBC Urine 0-5 /hpf
[2023-06-14 23:47] LABS: Add Urine Microscopic? YES
--- NOTE | 2023-06-15 00:02 | PC.NURSE ---
Patient called out requesting anxiety meds. ED CHRISSIE Anderson notified.
[2023-06-15 00:04] VITALS: PULSE 64; RESP 16; O2SAT 96
[2023-06-15 00:06] VITALS: BP 155/93; PULSE 64; RESP 12; O2SAT 97
[2023-06-15] MEDS: lisinopriL 10 MG TABLET PO (00:13)
[2023-06-15] MEDS: LORazepam INJ (*CRX) 2 MG/ML VIAL 0.5 MG IV PUSH (00:13)
[2023-06-15 00:15] VITALS: PULSE 64; RESP 14; O2SAT 97
[2023-06-15 00:17] VITALS: BP 155/89; PULSE 61; RESP 12; O2SAT 93
[2023-06-15 00:24] LABS: Basophils Percent Auto 0.3 % (0.2-1.2); Eosinophils Absolute Auto 0.2 K/mm3 (0-0.3); Eosinophils Percent Auto 2.4 % (0-4.4); Hematocrit 43.7 % (42.0-52.0); Hemoglobin 13.8 g/dL (14.0-18.0); Immature Granulocyte Absolute 0.02 K/mm3 (0.00-0.031); Immature Granulocyte Percent A 0.3 % (0-0.5); Lymphocytes Absolute Auto 1.11 K/mm3 (0.9-3.2); Lymphocytes Percent Auto 15.7 % (18.3-44.2); Mean Corpuscular HGB Conc 31.6 g/dl (32-36); Mean Corpuscular Hemoglobin 27.5 pg (26-34); Mean Corpuscular Volume 87.2 fl (80-100); Monocytes Absolute Auto 0.4 K/mm3 (0.1-0.6); Monocytes Percent Auto 5.9 % (2.6-8.5); Neutrophils Absolute Auto 5.3 K/mm3 (1.3-6.7); Neutrophils Percent Auto 75.4 % (45.5-73.1); Platelet Count Result 225 k/mm3 (150-375); Red Blood Count 5.01 M/mm3 (4.6-6.20); Red Cell Distribution Width 13.6 % (11.5-14.5); White Blood Count 7.1 K/mm3 (4.5-10.0)
[2023-06-15 00:31] LABS: Alanine Aminotransferase 7 U/L (6-50); Albumin Level 4.3 g/dL (3.5-5.1); Alkaline Phosphatase 103 U/L (38-126); Anion Gap 8 mmol/L (8-16); Aspartate Amino Transferase 28 U/L (17-59); Bilirubin,Total 0.6 mg/dL (0.2-1.3); Blood Urea Nitrogen 12 mg/dL (9-20); Calcium 9.4 mg/dL (8.4-10.2); Carbon Dioxide 30 mmol/L (22-30); Chloride 99 mmol/L (98-107); Estimated CRCL calculation 91 ml/min; Estimated Glomerular Filt Rate > 60; Glucose 118 mg/dL (65-110); Potassium 4.2 mmol/L (3.4-5.0); Sodium 137 mmol/L (137-145)
[2023-06-15 00:32] VITALS: BP 157/90; PULSE 60; RESP 12
[2023-06-15 00:45] VITALS: PULSE 67; RESP 12; O2SAT 95
== END 2023-06-15 01:52 | disposition home or self-care (01) ==
PROVIDERS: Emergency Provider Physician Assistant; PCP Family Medicine
DX: F41.9 Anxiety disorder, unspecified (principal); I10 Essential (primary) hypertension; R00.1 Bradycardia, unspecified; I25.10 Atherosclerotic heart disease of native coronary artery without angina pectoris; F32.A Depression, unspecified; G20.C Parkinsonism, unspecified; I25.2 Old myocardial infarction
CPT/HCPCS: 36415; 71046; 80053; 81001; 85025; 93005; 96374; 99284; A9270; J2060

== ENCOUNTER → 2023-08-09 11:27 | Outpatient (CLI) | payer MEDICARE, OTHER, SELFPAY ==
--- NOTE | ~2023-08-09 | XR_ITS ---
XR chest 2V DATE: 08/09/2023 11:46 INDICATION: Chronic cough. History of hypertension, coronary disease, myocardial infarction TECHNIQUE: 2 views COMPARISON: 06/14/2023 2 view chest FINDINGS: Normal heart size. Thoracic aortic calcification, mild aortic unfolding. No hilar or mediastinal enlargement is evident. There is mild elevation right diaphragm. There is mild infiltrate or atelectasis in the right mid and both lower lung zones. There is dextroscoliosis and degenerative spurring of the thoracic spine. IMPRESSION: Mild infiltrate and/or atelectasis of right mid and both lower lungs Reviewed, dictated and finalized at location L. [facility] PLAY IMPRESSION: Mild infiltrate and/or atelectasis of right mid and both lower lung s
== END ==
PROVIDERS: PCP Family Medicine; Visit Provider Nurse Practitioner Family
DX: R05.3 Chronic cough (principal); I10 Essential (primary) hypertension; I25.10 Atherosclerotic heart disease of native coronary artery without angina pectoris; R91.8 Other nonspecific abnormal finding of lung field
CPT/HCPCS: 71046

== ENCOUNTER 2023-10-10 09:56 | Emergency (ER) | payer MEDICARE, OTHER, SELFPAY ==
--- NOTE | ~2023-10-10 | XR_ITS ---
EXAMINATION: XR knee RT min 4V DATE: 10/10/2023 14:11 INDICATION: Right knee joint effusion. TECHNIQUE: 4 views of right knee were obtained. COMPARISON: None. FINDINGS: Bone alignment is normal. No fracture. There is mild tricompartmental osteoarthritis. There is chondrocalcinosis of the menisci. There is a moderate-sized knee joint effusion. IMPRESSION: 1. Mild right knee osteoarthritis. 2. Moderate-sized right knee joint effusion. Reviewed, dictated and finalized at location A.
--- NOTE | ~2023-10-10 | US_ITS ---
EXAMINATION: US venous doppler LE RT DATE: 10/10/2023 11:36 INDICATION: Right lower limb pain and swelling. TECHNIQUE: Grayscale ultrasound images without and with compression and Doppler ultrasound images of the right lower extremity veins were obtained. COMPARISON: None. FINDINGS: The visualized portions of right common femoral vein, profunda (deep) femoral vein, femoral vein, pop liteal vein, peroneal veins, posterior tibial veins, and greater saphenous vein outflow are patent. IMPRESSION: 1. No deep venous thrombosis. Reviewed, dictated and finalized at location A.
[2023-10-10 10:15] VITALS: BP 136/78; PULSE 94; RESP 17; TEMP 36.4; O2SAT 94
--- NOTE | 2023-10-10 13:00 | ED.LOWEXIN ---
HPI - Extremity Injury (Lower) General Chief Complaint: Extremity Injury, Lower Stated Complaint: right leg pain Time Seen by Provider: 10/10/23 12:39 Source: patient and family ( via phone) Mode of arrival: EMS Limitations: no limitations History of Present Illness HPI Narrative: Patient presents with acute onset right knee pain Starting last night. No associated blunt or penetrating trauma/ injury. He has been working with physical therapy at home and performing exercises setting of diagnosis of Parkinson's for which he is in a wheelchair. No prior diagnosis of gout. Patient and his noticed that the knee was red, swollen, and warm to the touch at the knee and extending into the calf. They called his primary care physician Dr. Mcwilliams about this this morning who wanted him to come to the emergency department for evaluation of a DVT. patient used Biofreeze Related Data Home Medications Medication Instructions Recorded Confirmed pregabalin 150 mg capsule (Lyrica) 150 mg PO HS 03/12/20 09/19/23 Hydromorphone Pain Pump 4.488 mg implant DAILY pain 04/30/20 09/19/23 cholecalciferol (vitamin D3) 25 25 mcg PO DAILY 04/30/20 09/19/23 mcg (1,000 unit) capsule (Vitamin D3) vitamin B complex 1 cap PO DAILY 04/30/20 09/19/23 cyanocobalamin (vitamin B-12) 1,000 mcg PO DAILY 08/12/21 09/19/23 1,000 mcg capsule carbidopa 25 mg-levodopa 100 mg 3.5 tablet PO TID 11/14/22 09/19/23 tablet d-mannose 500 mg capsule 500 mg PO DAILY 11/14/22 09/19/23 mupirocin 2 % topical ointment topical 08/09/23 09/19/23 Allergies Allergy/AdvReac Type Severity Reaction Status Date / Time tramadol Allergy Mild SEIZURE Verified 10/10/23 10:33 ticagrelor [From Brilinta] AdvReac Dyspnea / Verified 10/10/23 10:33 SOB PMFSH Past Medical History Medical History Actinic keratoses Chronic pain syndrome Pain pump. Coffee ground emesis Colon cancer screening Coronary artery disease Depression Essential (primary) hypertension Fracture of lumbar spine Gastritis due to nonsteroidal anti-inflammatory drug History of seizure Attributed to tramadol. Myocardial infarction Neurogenic bladder Parkinsonism Pelvic fracture Reflux esophagitis Traumatic brain injury Urethral stricture Surgical History Surgical History History of appendectomy History of cardiac catheterization 03/13/2020, 03/20/2021, 09/11/2021 History of cholecystectomy History of coronary artery stent placement History of dilation of urethra History of esophagogastroduodenoscopy (EGD) History of lumbar surgery History of partial colectomy History of tonsillectomy Status post glaucoma surgery Family History Family History Mother Diabetes mellitus Patient's mother is Father Patient's father is Sibling Breast cancer Cancer Son Thyroid cancer Melanoma Social History Social History Social History: Surrogate medical decision maker: Madan Wellington (son) or Stefanie Wellington (spouse). Code status: Full code. Smoking packs per day: 1 Smoking cigarettes per day: 20.0 Years smoked: 3 Smoking pack-years: 3.00 Smoking status: Former smoker Second hand tobacco smoke exposure: No Alcohol intake: never Substance use: never Substance use type: does not use Last use: quit drinking about a year ago when started on Parkinson's med Lack of Transportation: No Lack of Food: Never True Current Housing: I Have Housing Concerned About Future Housing: No Difficulty Paying Gas/Electric Bills: No Difficulty Paying for Meds: No Currently Unemployed: No Education: Bachelor's Degree Difficulty w/ Childcare or Family Care: No Living arrangements: with family Spiritual care concern
[2023-10-10 13:01] VITALS: BP 132/67; PULSE 70; RESP 18; O2SAT 94
[2023-10-10 14:51] LABS: Uric Acid 3.6 mg/dL (3.5-8.5)
== END 2023-10-10 15:34 | disposition home or self-care (01) ==
PROVIDERS: Emergency Provider Student in an Organized Health Care Education/Training Program; PCP Family Medicine
DX: M17.11 Unilateral primary osteoarthritis, right knee (principal); M25.461 Effusion, right knee; M79.604 Pain in right leg; G20.A1 Parkinson's disease without dyskinesia, without mention of fluctuations; G89.4 Chronic pain syndrome; I25.10 Atherosclerotic heart disease of native coronary artery without angina pectoris; I10 Essential (primary) hypertension; I25.2 Old myocardial infarction; N31.9 Neuromuscular dysfunction of bladder, unspecified; K21.00 Gastro-esophageal reflux disease with esophagitis, without bleeding; Z95.5 Presence of coronary angioplasty implant and graft; Z87.891 Personal history of nicotine dependence; Z90.49 Acquired absence of other specified parts of digestive tract; Z79.82 Long term (current) use of aspirin
CPT/HCPCS: 36415; 73564; 84550; 93971; 99284

== ENCOUNTER 2023-11-10 08:08 | Outpatient (CLI) | payer MEDICARE, OTHER, SELFPAY ==
--- NOTE | ~2023-11-10 | MR_ITS ---
MRI of the right foot CLINICAL HISTORY: Pain TECHNIQUE: Axial proton-density and proton-density fat-sat images, sagittal T1-weighted and STIR imag es, and coronal T1-weighted and proton-density fat-sat images were acquired. FINDINGS: No acute fracture or evidence for osteomyelitis. There is mild degenerative change at the f irst metatarsophalangeal joint and the sesamoid metatarsal articulations at the first MTP joint regio n. Probable moderate first MTP joint effusion present. There is marrow edema at the medial aspect of the first metatarsal head and in the medial hallux sesamoid. There are additional scattered mild degenerative changes at the interphalangeal joints of the remaini ng toes. No other significant joint effusion identified. Flexor and extensor tendons are intact. No intermetatarsal bursitis or Huang's neuroma evident. Ther e is mild diffuse edema of the intrinsic musculature of the foot. There is dorsal subcutaneous soft t issue edema in the foot. No soft tissue mass or fluid collection evident. IMPRESSION: Mild degenerative changes of the first MTP joint and sesamoid metatarsal articulations. Marrow edema of the medial hallux sesamoid and medial aspect of the first metatarsal head. This could be reactive, versus possibly contusion or other sesamoiditis. There is underlying bipartite medial h allux sesamoid. Moderate first MTP joint effusion, nonspecific. Dorsal subcutaneous soft tissue edema and mild edema of the intrinsic musculature of the foot, nonspe cific findings. Reviewed, dictated and finalized at [facility]. IMPRESSION: Mild degenerative changes of the first MTP joint and sesamoid metatarsal articu lations. Marrow edema of the medial hallux sesamoid and medial aspect of the first metat arsal head. This could be reactive, versus possibly contusion or other sesamoid itis. There is underlying bipartite medial hallux sesamoid. Moderate first MTP joint effusion, nonspecific. Dorsal subcutaneous soft tissue edema and mild edema of the intrinsic musculatu re of the foot, nonspecific findings.
== END 2023-11-10 08:09 ==
PROVIDERS: PCP Family Medicine; Visit Provider Podiatrist Foot & Ankle Surgery
DX: M25.471 Effusion, right ankle (principal)
CPT/HCPCS: 73718

== ENCOUNTER 2023-11-21 19:02 | Emergency (ER) | payer MEDICARE, OTHER, SELFPAY ==
--- NOTE | 2023-11-21 19:23 | PC.NURSE ---
Family states pt recently started on a stong anxiety medication but cannot remember the name. Reports pt has been out of it since starting 7 days ago.
[2023-11-21 19:25] VITALS: BP 142/79; PULSE 88; RESP 18; TEMP 36.7; O2SAT 94
[2023-11-21 21:44] VITALS: BP 147/80; PULSE 83; RESP 16; TEMP 37; O2SAT 97
--- NOTE | 2023-11-21 22:32 | ED.GENADULT ---
HPI - General Adult General Chief complaint: Anxiety Stated complaint: anxiety Time Seen by Provider: 11/21/23 22:00 History of Present Illness HPI narrative: This is a 73-year-old male with history of Parkinson's and anxiety presenting for increased anxiety. He has been having increased panic attacks over the last 3 weeks. They had seen his primary care physician and was prescribed Klonopin however that was too strong and they thought that he was too sedated. He was then switched Ativan earlier today. He is now more calm. They believe the Ativan is working appropriately. He has no other complaints Related Data Home Medications Medication Instructions Recorded Confirmed pregabalin 150 mg capsule (Lyrica) 150 mg PO HS 03/12/20 11/16/23 Hydromorphone Pain Pump 4.488 mg implant DAILY pain 04/30/20 11/16/23 cholecalciferol (vitamin D3) 25 25 mcg PO DAILY 04/30/20 11/16/23 mcg (1,000 unit) capsule (Vitamin D3) vitamin B complex 1 cap PO DAILY 04/30/20 11/16/23 cyanocobalamin (vitamin B-12) 1,000 mcg PO DAILY 08/12/21 11/16/23 1,000 mcg capsule carbidopa 25 mg-levodopa 100 mg 3.5 tablet PO TID 11/14/22 11/16/23 tablet d-mannose 500 mg capsule 500 mg PO DAILY 11/14/22 11/16/23 mupirocin 2 % topical ointment topical 08/09/23 11/16/23 Allergies Allergy/AdvReac Type Severity Reaction Status Date / Time tramadol Allergy Mild SEIZURE Verified 11/14/23 10:56 ticagrelor [From Brilinta] AdvReac Dyspnea / Verified 11/14/23 10:56 SOB PMFSH Past Medical History Medical History Actinic keratoses Chronic pain syndrome Pain pump. Coffee ground emesis Colon cancer screening Coronary artery disease Depression Essential (primary) hypertension Fracture of lumbar spine Gastritis due to nonsteroidal anti-inflammatory drug History of seizure Attributed to tramadol. Myocardial infarction Neurogenic bladder Parkinsonism Pelvic fracture Reflux esophagitis Traumatic brain injury Urethral stricture Surgical History Surgical History History of appendectomy History of cardiac catheterization 03/13/2020, 03/20/2021, 09/11/2021 History of cholecystectomy History of coronary artery stent placement History of dilation of urethra History of esophagogastroduodenoscopy (EGD) History of lumbar surgery History of partial colectomy History of tonsillectomy Status post glaucoma surgery Family History Family History Mother Diabetes mellitus Patient's mother is Father Patient's father is Sibling Breast cancer Cancer Son Thyroid cancer Melanoma Social History Social History Social History: Surrogate medical decision maker: Madan Wellington (son) or Stefanie Wellington (spouse). Code status: Full code. Smoking packs per day: 1 Smoking cigarettes per day: 20.0 Years smoked: 3 Smoking pack-years: 3.00 Smoking status: Former smoker Second hand tobacco smoke exposure: No Alcohol intake: never Substance use: never Substance use type: does not use Last use: quit drinking about a year ago when started on Parkinson's med Do You Feel Safe in your Home?: Yes Lack of Transportation: No Lack of Food: Never True Current Housing: I Have Housing Concerned About Future Housing: No Difficulty Paying Gas/Electric Bills: No Difficulty Paying for Meds: No Currently Unemployed: No Education: Bachelor's Degree Difficulty w/ Childcare or Family Care: No Living arrangements: with family Spiritual care concerns: No Exam Narrative: APPEARANCE: No apparent distress. Head: atraumatic. EYES: EOMI, NOSE: Atraumatic NECK: Trachea midline RESPIRATORY: No increased rate of breathing CTAB CARDIOVASCULAR: RRR, ABDOMINAL: Non-distended MUSCULOSKELETAl:
== END 2023-11-21 23:05 | disposition home or self-care (01) ==
PROVIDERS: Emergency Provider Emergency Medicine; PCP Family Medicine
DX: F41.9 Anxiety disorder, unspecified (principal); G20.A1 Parkinson's disease without dyskinesia, without mention of fluctuations; G89.4 Chronic pain syndrome; I25.10 Atherosclerotic heart disease of native coronary artery without angina pectoris; I10 Essential (primary) hypertension; I25.2 Old myocardial infarction; N31.9 Neuromuscular dysfunction of bladder, unspecified; Z95.5 Presence of coronary angioplasty implant and graft; Z87.820 Personal history of traumatic brain injury; Z87.891 Personal history of nicotine dependence; Z90.49 Acquired absence of other specified parts of digestive tract; Z79.899 Other long term (current) drug therapy
CPT/HCPCS: 99281

== ENCOUNTER 2023-11-29 20:53 | Emergency (ER) | payer MEDICARE, OTHER, SELFPAY ==
--- NOTE | ~2023-11-29 | XR_ITS ---
EXAMINATION: XR chest 1V portable DATE: 11/29/2023 21:46 INDICATION: Dyspnea, weakness and fever TECHNIQUE: frontal view of the chest was obtained. COMPARISON: Chest radiograph dated 08/09/2023 and 06/14/2023 FINDINGS: Again seen are small lung volumes. Colonic interposition with colonic gas projecting over the right h emidiaphragm. No focal airspace opacities, pulmonary edema, pleural effusion or pneumothorax. The car diomediastinal silhouette is normal. IMPRESSION: 1. No acute cardiopulmonary disease. Reviewed, dictated and finalized at location A.
--- NOTE | ~2023-11-29 | CT_ITS ---
Clinical Indication: Dyspnea CT Scan of the Chest with Contrast: Technique: Contiguous sections were acquired throughout the chest after intravenous administration of 100 cc of Omnipaque 350. Dose reduction technique was used on this scan by utilizing automated expos ure control and iterative reconstruction technique. The dose-length product (DLP) was 455.01 mGy-cm. COMPARISON: 03/18/2021 Findings: There is no evidence of any significant mediastinal, hilar or axillary lymphadenopathy. There is no f illing defect in the pulmonary arterial tree to suggest pulmonary embolus. There is no evidence of ao rtic dissection or aneurysm. There is no evidence of pleural or pericardial effusion. There is linear scarring or atelectasis right lung base. Calcified granuloma noted in the right middl e lobe. Images through the upper abdomen reveal no abnormalities. Impression: No evidence of pulmonary embolus, aortic dissection, or aortic aneurysm. No significant pulmonary abnormality seen. Reviewed, dictated and finalized at [facility]. Impression: No evidence of pulmonary embolus, aortic dissection, or aortic aneurysm. No significant pulmonary abnormality seen.
[2023-11-29 21:01] VITALS: BP 174/88; PULSE 72; RESP 12; TEMP 36.8; O2SAT 98
--- NOTE | 2023-11-29 21:18 | ED.GENADULT ---
HPI - General Adult General Chief complaint: Weakness Stated complaint: WEAKNESS FATIGUE Time Seen by Provider: 11/29/23 20:56 Source: patient Mode of arrival: ambulatory Limitations: no limitations History of Present Illness HPI narrative: This is a 73-year-old male with PMH of Parkinson's, CAD, HTN who presents to the ED with chief complaint of dyspnea. Reports that every night he becomes weak, shaky, short of breath but today was worse. Reports that he felt like he had a fever this morning but no recorded elevated temperatures. Denies any chest pain, nausea, vomiting, syncope, lightheadedness, dizziness, abdominal pain, diarrhea, GI bleeding symptoms. Related Data Home Medications Medication Instructions Recorded Confirmed pregabalin 150 mg capsule (Lyrica) 150 mg PO HS 03/12/20 11/16/23 Hydromorphone Pain Pump 4.488 mg implant DAILY pain 04/30/20 11/16/23 cholecalciferol (vitamin D3) 25 25 mcg PO DAILY 04/30/20 11/16/23 mcg (1,000 unit) capsule (Vitamin D3) vitamin B complex 1 cap PO DAILY 04/30/20 11/16/23 cyanocobalamin (vitamin B-12) 1,000 mcg PO DAILY 08/12/21 11/16/23 1,000 mcg capsule carbidopa 25 mg-levodopa 100 mg 3.5 tablet PO TID 11/14/22 11/16/23 tablet d-mannose 500 mg capsule 500 mg PO DAILY 11/14/22 11/16/23 mupirocin 2 % topical ointment topical 08/09/23 11/16/23 Allergies Allergy/AdvReac Type Severity Reaction Status Date / Time tramadol Allergy Mild SEIZURE Verified 11/14/23 10:56 ticagrelor [From Brilinta] AdvReac Dyspnea / Verified 11/14/23 10:56 SOB Review of Systems Review of Systems: All systems as dictated in [facility] Past Medical History Medical History Actinic keratoses Chronic pain syndrome Pain pump. Coffee ground emesis Colon cancer screening Coronary artery disease Depression Essential (primary) hypertension Fracture of lumbar spine Gastritis due to nonsteroidal anti-inflammatory drug History of seizure Attributed to tramadol. Myocardial infarction Neurogenic bladder Parkinsonism Pelvic fracture Reflux esophagitis Traumatic brain injury Urethral stricture Surgical History Surgical History History of appendectomy History of cardiac catheterization 03/13/2020, 03/20/2021, 09/11/2021 History of cholecystectomy History of coronary artery stent placement History of dilation of urethra History of esophagogastroduodenoscopy (EGD) History of lumbar surgery History of partial colectomy History of tonsillectomy Status post glaucoma surgery Family History Family History Mother Diabetes mellitus Patient's mother is Father Patient's father is Sibling Breast cancer Cancer Son Thyroid cancer Melanoma Social History Social History Social History: Surrogate medical decision maker: Madan Wellington (son) or Stefanie Wellington (spouse). Code status: Full code. Smoking packs per day: 1 Smoking cigarettes per day: 20.0 Years smoked: 3 Smoking pack-years: 3.00 Smoking status: Former smoker Second hand tobacco smoke exposure: No Alcohol intake: never Substance use: never Substance use type: does not use Last use: quit drinking about a year ago when started on Parkinson's med Do You Feel Safe in your Home?: Yes Lack of Transportation: No Lack of Food: Never True Current Housing: I Have Housing Concerned About Future Housing: No Difficulty Paying Gas/Electric Bills: No Difficulty Paying for Meds: No Currently Unemployed: No Education: Bachelor's Degree Difficulty w/ Childcare or Family Care: No Living arrangements: with family Spiritual care concerns: No Exam Narrative: GENERAL: Well-appearing, well-nourished, and in no acute distress. HEAD: Normocephalic,
--- NOTE | 2023-11-29 21:19 | ECG_ITS ---
SEE SCANNED COPY FOR CONFIRMED REPORT MTDD
[2023-11-29 22:19] LABS: Basophils Percent Auto 0.4 % (0.2-1.2); Eosinophils Absolute Auto 0.1 K/mm3 (0-0.3); Eosinophils Percent Auto 1.3 % (0-4.4); Hematocrit 45.6 % (42.0-52.0); Hemoglobin 14.7 g/dL (14.0-18.0); Immature Granulocyte Absolute 0.02 K/mm3 (0.00-0.031); Immature Granulocyte Percent A 0.3 % (0-0.5); Mean Corpuscular HGB Conc 32.2 g/dl (32-36); Mean Corpuscular Hemoglobin 27.3 pg (26-34); Mean Corpuscular Volume 84.8 fl (80-100); Mean Platelet Volume 9.3 fl (7.4-10.4); Monocytes Absolute Auto 0.5 K/mm3 (0.1-0.6); Monocytes Percent Auto 6.3 % (2.6-8.5); Neutrophils Absolute Auto 5.8 K/mm3 (1.3-6.7); Neutrophils Percent Auto 73.7 % (45.5-73.1); Platelet Count Result 269 k/mm3 (150-375); Red Blood Count 5.38 M/mm3 (4.6-6.20); Red Cell Distribution Width 13.6 % (11.5-14.5); White Blood Count 7.8 K/mm3 (4.5-10.0)
[2023-11-29 22:24] LABS: Appearance Urine Clear (Clear); Bacteria Urine 4+ /hpf; Bilirubin Urine Negative (Negative); Blood Urine Negative (Negative); Color Urine Yellow (Yellow); Glucose Urine UA Negative (Negative); Ketones Urine Negative (Negative); Leukocyte Esterase Ur 3+ LEU/UL (Negative); Nitrate Urine Positive (Negative); Non Pathogenic Casts 0-2; Protein Urine Negative (Negative); RBC Urine 0-2 /hpf (0-2); Specific Grav Ur 1.009 (1.001-1.035); Squamous Epithelial Cell Urine None Seen /hpf (Few); Urobilinogen Urine 0.2 mg/dL (<2.0); WBC Urine 51-100 /hpf (0-3)
[2023-11-29 22:26] LABS: Add Urine Microscopic? YES
[2023-11-29 22:32] LABS: INR 1.1; Prothrombin Time 14.2 Seconds (11.1-14.7)
[2023-11-29 22:33] LABS: Partial Thromboplastin Time 30.3 Seconds (22.3-36.8)
[2023-11-29 22:41] LABS: D Dimer 1.14 ug/mL (<0.48)
[2023-11-29 22:47] LABS: Alanine Aminotransferase 7 U/L (6-50); Albumin Level 4.4 g/dL (3.5-5.1); Alkaline Phosphatase 96 U/L (38-126); Anion Gap 4 mmol/L (4-12); Aspartate Amino Transferase 23 U/L (17-59); Bilirubin,Total 0.6 mg/dL (0.2-1.3); Blood Urea Nitrogen 18 mg/dL (9-20); CRP < 0.5 mg/dL (<1.0); Calcium 9.3 mg/dL (8.4-10.2); Carbon Dioxide 33 mmol/L (22-30); Chloride 101 mmol/L (98-107); Estimated CRCL calculation 105 ml/min; Estimated Glomerular Filt Rate > 60; Glucose 113 mg/dL (65-110); Sodium 138 mmol/L (137-145)
[2023-11-29 22:57] LABS: Influenza A QL RT-PCR Negative (Negative); Influenza B QL RT-PCR Negative (Negative); RSV RNA, RT-PCR Negative (Negative); SARS-CoV-2 RNA PCR Negative (Negative); Troponin I < 0.012 ng/mL (0.000-0.034)
[2023-11-29] MEDS: SODIUM CHLORIDE 0.9% IV 1,000 ML 999 ML IV CONT (23:10)
[2023-11-30] MEDS: ACETAMINOPHEN 500 MG TABLET 1000 MG PO (00:36)
[2023-11-30 01:23] VITALS: BP 157/84; PULSE 66; RESP 12; O2SAT 96
== END 2023-11-30 01:25 | disposition home or self-care (01) ==
PROVIDERS: Emergency Provider Physician Assistant; PCP Family Medicine
DX: N39.0 Urinary tract infection, site not specified (principal); Z20.822 Contact with and (suspected) exposure to COVID-19; G20.A1 Parkinson's disease without dyskinesia, without mention of fluctuations; I25.10 Atherosclerotic heart disease of native coronary artery without angina pectoris; I10 Essential (primary) hypertension; I25.2 Old myocardial infarction; G89.4 Chronic pain syndrome; N31.9 Neuromuscular dysfunction of bladder, unspecified; K21.9 Gastro-esophageal reflux disease without esophagitis; F32.A Depression, unspecified; Z95.5 Presence of coronary angioplasty implant and graft; Z96.89 Presence of other specified functional implants; Z87.828 Personal history of other (healed) physical injury and trauma; Z87.891 Personal history of nicotine dependence; Z90.49 Acquired absence of other specified parts of digestive tract; Z79.82 Long term (current) use of aspirin; R94.31 Abnormal electrocardiogram [ECG] [EKG]
CPT/HCPCS: 36415; 71045; 71275; 80053; 81001; 84484; 85025; 85380; 85610; 85730; 86140; 87077; 87086; 87088; 87186; 87637; 93005; 96361; 96365; 99284; A9270; J0696; J7030; Q9967

== ENCOUNTER 2023-12-07 16:21 | Outpatient (CLI) | payer MEDICARE, OTHER, SELFPAY ==
[2023-12-07 21:40] LABS: Kit Draw Collected
== END 2023-12-07 16:22 | disposition home or self-care (01) ==
LOC: ANHGOSHLAB 16:24
PROVIDERS: PCP Family Medicine; Visit Provider Family Medicine
DX: R79.89 Other specified abnormal findings of blood chemistry (principal); M62.522 Muscle wasting and atrophy, not elsewhere classified, left upper arm; F41.9 Anxiety disorder, unspecified; R29.6 Repeated falls
CPT/HCPCS: 36415

== ENCOUNTER 2023-12-30 11:06 | Outpatient (CLI) | payer MEDICARE, OTHER, SELFPAY ==
--- NOTE | ~2023-12-30 | MR_ITS ---
EXAMINATION: MR knee RT wo con DATE: 12/30/2023 12:16 INDICATION: Unilateral primary osteoarthritis, right knee. Right knee instability and swelling. TECHNIQUE: Magnetic resonance imaging (MRI) of the right knee was performed without intravenous contr ast. Sequences included axial PD-weighted FS FSE, coronal PD-weighted FSE and PD-weighted FS FSE, sag ittal PD-weighted FSE, and sagittal T2-weighted FS FSE. COMPARISON: Right knee radiographs 10/10/2023 FINDINGS: Medial compartment: There is a complex tear involving body and posterior horn of medial meniscus. There is cartilage surf chacho irregularity of tibial condyle and femoral condyle. Marginal osteophytes are noted. Lateral compartment: There is an undersurface horizontal tear of body and posterior horn of lateral meniscus. There is ful l-thickness cartilage loss of femoral condyle involving the central and posterior articular surface w ith subchondral sclerosis and mild subchondral edema-like marrow signal intensity. There is full-thic kness cartilage loss of tibial condyle involving the posterior articular surface with subchondral scl erosis and mild subchondral edema-like signal intensity. Osteophytes are noted. Patellofemoral compartment: There is shallow partial-thickness cartilage loss of patellar medial facet. There is deep partial-thi ckness cartilage loss of patellar lateral facet. There is cartilage surface irregularity of trochlea. Osteophytes are noted. Ligaments and tendons: The anterior and posterior cruciate ligaments are normal. There are changes of prior sprains of media l collateral ligament and fibular collateral ligament characterized by thickening and increased signa l intensity proximally. There is mild patellar tendinopathy. Fluid: There is a moderate-sized knee joint effusion. There is mild prepatellar and superficial infrapatella r bursitis. IMPRESSION: 1. Severe chondrosis of lateral compartment, moderate chondrosis of patellofemoral compartment, and m ild chondrosis of medial compartment. 2. Tears of medial and lateral menisci. 3. Moderate-sized knee joint effusion. Reviewed, dictated and finalized at location E. IMPRESSION: 1. Severe chondrosis of lateral compartment, moderate chondrosis of patellofemo ral compartment, and mild chondrosis of medial compartment. 2. Tears of medial and lateral menisci. 3. Moderate-sized knee joint effusion.
== END 2023-12-30 11:07 ==
LOC: GOSHIMG 11:07
PROVIDERS: PCP Family Medicine; Visit Provider Physician Assistant Surgical
DX: M17.11 Unilateral primary osteoarthritis, right knee (principal); M25.461 Effusion, right knee; S83.281D Other tear of lateral meniscus, current injury, right knee, subsequent encounter; S83.241D Other tear of medial meniscus, current injury, right knee, subsequent encounter; X58.XXXD Exposure to other specified factors, subsequent encounter
CPT/HCPCS: 73721

== ENCOUNTER 2024-01-07 14:24 | Emergency (ER) | payer MEDICARE, OTHER, SELFPAY ==
[2024-01-07] VITALS (8 sets, daily range): BP systolic 165–180; BP diastolic 83–116; PULSE 64–73; RESP 14; O2SAT 94–99
--- NOTE | ~2024-01-07 | CT_ITS ---
EXAMINATION: CT brain wo con DATE: 01/07/2024 15:33 INDICATION: Generalized weakness. TECHNIQUE: Computed tomography (CT) of the head was performed without intravenous contrast. The mA wa s adjusted according to patient size. Iterative reconstruction technique was employed. The dose-lengt h product was 605.33 mGy-cm. COMPARISON: Head CT 05/21/2023 FINDINGS: There is diffuse brain volume loss. There is no intracranial hemorrhage, acute infarction, or abnormal intracranial mass lesion. The ventricles are normal in size. There is mild mucosal thicke pavithra in the paranasal sinuses. There is an old blowout fracture of medial wall of left orbit. The mas toid air cells are normal. IMPRESSION: 1. Normal aging brain. Reviewed, dictated and finalized at location E. IMPRESSION: 1. Normal aging brain.
--- NOTE | ~2024-01-07 | XR_ITS ---
EXAMINATION: XR chest 1V portable DATE: 01/07/2024 14:51 INDICATION: Shaking. TECHNIQUE: A single frontal view of the chest was obtained. COMPARISON: Chest single view 11/29/2023 FINDINGS: The lung volumes are small. There are mild airspace opacities in the mid and lower lung zon es. No pleural effusion or pneumothorax. The heart size is normal. IMPRESSION: 1. Small lung volumes with mild airspace opacities in the mid and lower lung zones, likely atelectasi s. Reviewed, dictated and finalized at location E. IMPRESSION: 1. Small lung volumes with mild airspace opacities in the mid and lower lung zo del, likely atelectasis.
[2024-01-07 14:54] LABS: Basophils Percent Auto 0.3 % (0.2-1.2); Eosinophils Absolute Auto 0.1 K/mm3 (0-0.3); Eosinophils Percent Auto 1.5 % (0-4.4); Hematocrit 42.5 % (42.0-52.0); Hemoglobin 13.9 g/dL (14.0-18.0); Immature Granulocyte Absolute 0.01 K/mm3 (0.00-0.031); Immature Granulocyte Percent A 0.2 % (0-0.5); Lymphocytes Absolute Auto 1.17 K/mm3 (0.9-3.2); Lymphocytes Percent Auto 18.1 % (18.3-44.2); Mean Corpuscular HGB Conc 32.7 g/dl (32-36); Mean Corpuscular Hemoglobin 27.5 pg (26-34); Mean Platelet Volume 9.4 fl (7.4-10.4); Monocytes Absolute Auto 0.4 K/mm3 (0.1-0.6); Monocytes Percent Auto 5.7 % (2.6-8.5); Neutrophils Absolute Auto 4.8 K/mm3 (1.3-6.7); Neutrophils Percent Auto 74.2 % (45.5-73.1); Platelet Count Result 229 k/mm3 (150-375); Red Blood Count 5.06 M/mm3 (4.6-6.20); Red Cell Distribution Width 14.6 % (11.5-14.5); White Blood Count 6.5 K/mm3 (4.5-10.0)
[2024-01-07 14:55] LABS: Appearance Urine Clear (Clear); Bilirubin Urine Negative (Negative); Blood Urine Negative (Negative); Color Urine Yellow (Yellow); Glucose Urine UA Negative (Negative); Ketones Urine Negative (Negative); Leukocyte Esterase Ur Negative LEU/UL (Negative); Nitrate Urine Negative (Negative); Protein Urine Negative (Negative); Specific Grav Ur 1.007 (1.001-1.035); Urobilinogen Urine 0.2 mg/dL (<2.0); pH Urine 7.5 (5.0-9.0)
[2024-01-07 14:57] LABS: Add Urine Microscopic? NO
--- NOTE | 2024-01-07 15:00 | ED.GENADULT ---
HPI - General Adult General Chief complaint: Weakness Stated complaint: uncontrolled shaking Time Seen by Provider: 01/07/24 14:31 History of Present Illness HPI narrative: 73-year-old male with history of a movement disorder presents to the emergency department for evaluation for increased generalized weakness. Patient states he previously bag diagnosed with an atypical Parkinson's but had no response to the COVID of levodopa. Patient had recent follow-up with his neurologist and was told that his neurologic issues may be secondary to multiple small strokes and that he may not even have Parkinson's. Patient did have an episode of a urinary tract infection that caused excessive weakness a few weeks ago. Patient denies any current urinary pain. Patient denies any abdominal pain. Patient denies any associated nausea vomiting but just reports increased generalized weakness and patient has had increased tremor. Related Data Home Medications Medication Instructions Recorded Confirmed pregabalin 150 mg capsule (Lyrica) 150 mg PO DAILY 03/12/20 01/06/24 carbidopa 25 mg-levodopa 100 mg 3.5 tablet PO TID 11/14/22 01/06/24 tablet albuterol sulfate 90 mcg/actuation 2 puff inhalation Q6H PRN SOB 12/14/23 01/06/24 aerosol inhaler (Proventil HFA) ascorbic acid (vitamin C) 1,000 mg 1 g PO DAILY 12/14/23 01/06/24 tablet aspirin 81 mg tablet,delayed 81 mg PO DAILY 12/14/23 01/06/24 release brimonidine 0.2 % eye drops 1 drp EACH EYE BID 12/14/23 01/06/24 d-mannose 500 mg capsule mg PO 12/14/23 01/06/24 lisinopril 10 mg tablet 20 mg PO HS 12/14/23 01/06/24 multivitamin,tx-minerals 1 tablet PO DAILY 12/14/23 01/06/24 oxybutynin chloride 5 mg 5 mg PO DAILY 12/14/23 01/06/24 tablet,extended release 24 hr timolol maleate 0.5 % eye drops 1 drp EACH EYE BID 12/14/23 01/06/24 vitamin B complex 1 tablet PO DAILY 12/14/23 01/06/24 lorazepam 0.5 mg tablet 0.5 mg PO BID PRN 01/04/24 01/06/24 Allergies Allergy/AdvReac Type Severity Reaction Status Date / Time tramadol Allergy Mild SEIZURE Verified 01/04/24 15:58 Beta-Blockers AdvReac Anxiety Verified 01/04/24 15:58 (Beta-Adrenergic Bloc ticagrelor [From Brilinta] AdvReac Dyspnea / Verified 01/04/24 15:58 SOB Review of Systems Review of Systems: All systems reviewed & are unremarkable except as noted in HPI and below PMFSH Past Medical History Medical History Actinic keratoses Chronic pain syndrome Pain pump. Coffee ground emesis Colon cancer screening Coronary artery disease Depression Essential (primary) hypertension Fracture of lumbar spine Gait abnormality Gastritis due to nonsteroidal anti-inflammatory drug History of seizure Attributed to tramadol. Low back pain Myocardial infarction Neurogenic bladder Parkinson's disease Parkinson's disease with dyskinesia and fluctuating manifestations Parkinsonism Pelvic fracture Reflux esophagitis Traumatic brain injury Urethral stricture Surgical History Surgical History History of appendectomy History of cardiac catheterization 03/13/2020, 03/20/2021, 09/11/2021 History of cholecystectomy History of coronary artery stent placement History of dilation of urethra History of esophagogastroduodenoscopy (EGD) History of lumbar surgery History of partial colectomy History of tonsillectomy Status post glaucoma surgery Family History Family History Mother Diabetes mellitus Patient's mother is Father Patient's father is Sibling Breast cancer Cancer Son Thyroid cancer Melanoma Social History Social History Social History: Surrogate medical decision maker: Madan Wellington (son) or Stefanie Wellington (spouse). Code status: Full code. Smoking packs pe
[2024-01-07 15:01] LABS: Alanine Aminotransferase 28 U/L (6-50); Albumin Level 4.3 g/dL (3.5-5.1); Alkaline Phosphatase 83 U/L (38-126); Anion Gap 9 mmol/L (4-12); Aspartate Amino Transferase 24 U/L (17-59); Bilirubin,Total 0.6 mg/dL (0.2-1.3); Blood Urea Nitrogen 12 mg/dL (9-20); Calcium 9.1 mg/dL (8.4-10.2); Carbon Dioxide 27 mmol/L (22-30); Chloride 103 mmol/L (98-107); Estimated Glomerular Filt Rate > 60; Glucose 121 mg/dL (65-110); Potassium 3.8 mmol/L (3.4-5.0); Sodium 139 mmol/L (137-145)
[2024-01-07 15:04] LABS: INR 1.1; Prothrombin Time 14.1 Seconds (11.1-14.7)
[2024-01-07 15:05] LABS: Partial Thromboplastin Time 32.4 Seconds (22.3-36.8)
[2024-01-07 15:31] LABS: Influenza A QL RT-PCR Negative (Negative); Influenza B QL RT-PCR Negative (Negative); RSV RNA, RT-PCR Negative (Negative); SARS-CoV-2 RNA PCR Negative (Negative)
[2024-01-07] MEDS: SODIUM CHLORIDE 0.9% IV 1,000 ML 999 ML IV CONT (16:12)
--- NOTE | 2024-01-07 16:30 | PC.NURSE ---
pt. family member reports to RN pt. has intermittent difficulty walking that is not new. ERP made aware
== END 2024-01-07 17:40 | disposition home or self-care (01) ==
PROVIDERS: Emergency Provider Emergency Medicine; PCP Family Medicine
DX: R53.1 Weakness (principal); Z20.822 Contact with and (suspected) exposure to COVID-19; G20.B2 Parkinson's disease with dyskinesia, with fluctuations; I25.10 Atherosclerotic heart disease of native coronary artery without angina pectoris; I10 Essential (primary) hypertension; I25.2 Old myocardial infarction; K21.9 Gastro-esophageal reflux disease without esophagitis; N31.9 Neuromuscular dysfunction of bladder, unspecified; G89.4 Chronic pain syndrome; F32.A Depression, unspecified; Z95.5 Presence of coronary angioplasty implant and graft; Z87.440 Personal history of urinary (tract) infections; Z87.891 Personal history of nicotine dependence; Z87.820 Personal history of traumatic brain injury; Z90.49 Acquired absence of other specified parts of digestive tract; Z79.899 Other long term (current) drug therapy; Z79.82 Long term (current) use of aspirin; Z79.01 Long term (current) use of anticoagulants
CPT/HCPCS: 36415; 70450; 71045; 80053; 81003; 85025; 85610; 85730; 87637; 96360; 99284; J7030

== ENCOUNTER 2024-02-21 09:46 | Emergency (ER) | payer MEDICARE, OTHER, SELFPAY ==
--- NOTE | ~2024-02-21 | CT_ITS ---
EXAMINATION: CT cervical spine wo con DATE: 02/21/2024 10:28 INDICATION: Neck pain. TECHNIQUE: Computed tomography (CT) of the cervical spine was performed without intravenous contrast. Automated exposure control and iterative reconstruction technique were employed. The dose-length pro duct was 432.24 mGy-cm. COMPARISON: CT cervical spine 04/12/2023 FINDINGS: There is 2 mm anterolisthesis of C4 on C5 and C7 on T1. There is 3 degrees levocurvature of cervicothoracic spine. Vertebral body heights are normal. There is mildly decreased disc height at C 2-C3, moderately decreased disc height at C3-C4, mildly decreased disc height at C4-C5, severely decr eased disc height at C5-C6 and C6-C7, and moderately decreased disc height at C7-T1. The following di sc levels are specifically discussed: C2-C3: There is moderate right and mild left uncovertebral joint osteoarthritis. There is severe righ t and moderate left facet joint osteoarthritis. There is mild right neural foraminal stenosis. There is mild central canal stenosis. C3-C4: There is severe bilateral uncovertebral joint osteoarthritis. There is severe bilateral facet joint osteoarthritis. There is moderate right and mild left neural foraminal stenosis. There is mild central canal stenosis. C4-C5: There is severe right and moderate left uncovertebral joint osteoarthritis. There is severe bi lateral facet joint osteoarthritis. There is moderate right and mild left neural foraminal stenosis. There is mild central canal stenosis. C5-C6: There is severe bilateral uncovertebral joint osteoarthritis. There is severe bilateral facet joint osteoarthritis. There is moderate bilateral neural foraminal stenosis. There is mild central ca nal stenosis. C6-C7: There is severe bilateral uncovertebral joint osteoarthritis. There is severe bilateral facet joint osteoarthritis. There is moderate bilateral neural foraminal stenosis. There is mild central ca nal stenosis. C7-T1: There is mild bilateral uncovertebral joint osteoarthritis. There is severe bilateral facet genevieve int osteoarthritis. There is mild bilateral neural foraminal stenosis. There is mild central canal st enosis. IMPRESSION: 1. Severe cervical spondylosis. Reviewed, dictated and finalized at location A.
--- NOTE | ~2024-02-21 | CT_ITS ---
CT brain wo con Ordering provider: Balaji Beaulieu APRN History: 73 years Male with . headache . Comparison: 01/07/2024 Technique: CT of the head without contrast. Radiation reduction technique utilized. DLP is 681 mGy-cm. FINDINGS: BRAIN PARENCHYMA AND CSF SPACES: Mild leukoaraiosis and diffuse cortical atrophy. Mild atheromatous d isease. Mild ventricular dilatation. No midline shift, mass effect or hemorrhage. The brain parenchy ma and CSF spaces are otherwise normal. VISUALIZED PARANASAL SINUSES: Left maxillary sinus disease. Minimal bilateral ethmoid sinus disease. MASTOIDS: Well aerated. BONES: The bones appear intact. SOFT TISSUES: Visualized nasopharynx is normal. Superficial soft tissues are normal. IMPRESSION: No acute intracranial findings. Reviewed, dictated and finalized at location A.
--- NOTE | ~2024-02-21 | XR_ITS ---
EXAMINATION: XR chest 1V portable DATE: 02/21/2024 11:15 INDICATION: Cough. Chest congestion. TECHNIQUE: A single frontal view of the chest was obtained. COMPARISON: Chest single view 01/07/2024 FINDINGS: The lung volumes are small. There are airspace opacities at the lung bases, likely atelecta sis. No pleural effusion or pneumothorax. The heart size is normal. IMPRESSION: 1. Small lung volumes with airspace opacities at the lung bases, likely atelectasis. Reviewed, dictated and finalized at location A. IMPRESSION: 1. Small lung volumes with airspace opacities at the lung bases, likely atelect asis.
[2024-02-21 09:47] VITALS: BP 161/84; PULSE 72; RESP 18; TEMP 36.9; O2SAT 99
--- NOTE | 2024-02-21 09:47 | ED.HA ---
HPI - Headache General Chief Complaint: Headache Stated Complaint: headache/neck pain x 5 days Time Seen by Provider: 02/21/24 09:47 Source: patient Mode of arrival: ambulatory Limitations: no limitations History of Present Illness HPI Narrative: Joe is a 73-year-old male patient presenting to the emergency room today with complaints of headache and neck pain. He reports that the pain starts in the right side of his mid cervical spine and radiates up into the frontal lobe. Denies any visual changes, dizziness, lightheadedness, or weakness. He denies any chest pain or shortness of breath. He denies any fevers. States that this has been going on since Tuesday and he has been taking Tylenol for the pain without relief. History of cervical myelopathy. Denies any recent fall hitting his head or neck. Related Data Home Medications Medication Instructions Recorded Confirmed pregabalin 150 mg capsule (Lyrica) 150 mg PO DAILY 03/12/20 02/14/24 carbidopa 25 mg-levodopa 100 mg 3.5 tablet PO TID 11/14/22 02/14/24 tablet albuterol sulfate 90 mcg/actuation 2 puff inhalation Q6H PRN SOB 12/14/23 02/14/24 aerosol inhaler (Proventil HFA) ascorbic acid (vitamin C) 1,000 mg 1 g PO DAILY 12/14/23 02/14/24 tablet aspirin 81 mg tablet,delayed 81 mg PO DAILY 12/14/23 02/14/24 release brimonidine 0.2 % eye drops 1 drp EACH EYE BID 12/14/23 02/14/24 d-mannose 500 mg capsule mg PO 12/14/23 02/14/24 lisinopril 10 mg tablet 20 mg PO HS 12/14/23 02/14/24 multivitamin,tx-minerals 1 tablet PO DAILY 12/14/23 02/14/24 timolol maleate 0.5 % eye drops 1 drp EACH EYE BID 12/14/23 02/14/24 vitamin B complex 1 tablet PO DAILY 12/14/23 02/14/24 Allergies Allergy/AdvReac Type Severity Reaction Status Date / Time tramadol Allergy Mild SEIZURE Verified 02/21/24 09:53 Beta-Blockers AdvReac Anxiety Verified 02/21/24 09:53 (Beta-Adrenergic Bloc ticagrelor [From Brilinta] AdvReac Dyspnea / Verified 02/21/24 09:53 SOB Review of Systems Review of Systems: Pertinent positives per HPI. Patient denies any fever, chills, rash, headache, visual changes, dizziness, cough, runny nose, sore throat, shortness of breath, chest pain, palpitations, nausea, vomiting, diarrhea, constipation, abdominal pain, or any urinary issues. [facility] Past Medical History Medical History Actinic keratoses Chronic pain syndrome Pain pump. Coffee ground emesis Colon cancer screening Coronary artery disease Depression Essential (primary) hypertension Fracture of lumbar spine Gait abnormality Gastritis due to nonsteroidal anti-inflammatory drug History of seizure Attributed to tramadol. Low back pain Myocardial infarction Neurogenic bladder Parkinson's disease Parkinson's disease with dyskinesia and fluctuating manifestations Parkinsonism Pelvic fracture Reflux esophagitis Traumatic brain injury Urethral stricture Surgical History Surgical History History of appendectomy History of cardiac catheterization 03/13/2020, 03/20/2021, 09/11/2021 History of cholecystectomy History of coronary artery stent placement History of dilation of urethra History of esophagogastroduodenoscopy (EGD) History of lumbar surgery History of partial colectomy History of tonsillectomy Status post glaucoma surgery Family History Family History Mother Diabetes mellitus Patient's mother is Father Patient's father is Sibling Breast cancer Cancer Son Thyroid cancer Melanoma Social History Social History Social History: Surrogate medical decision maker: Madan Wellington (son) or Stefanie Wellington (spouse). Code status: Full code. Smoking packs per day: 0.5 Smoking cigarettes per day: 10.0 Years smoke
[2024-02-21 11:22] LABS: Basophils Percent Auto 0.4 % (0.2-1.2); Eosinophils Absolute Auto 0.3 K/mm3 (0-0.3); Eosinophils Percent Auto 3.4 % (0-4.4); Hematocrit 38.6 % (42.0-52.0); Immature Granulocyte Absolute 0.03 K/mm3 (0.00-0.031); Immature Granulocyte Percent A 0.4 % (0-0.5); Lymphocytes Absolute Auto 1.11 K/mm3 (0.9-3.2); Lymphocytes Percent Auto 13.7 % (18.3-44.2); Mean Corpuscular HGB Conc 31.1 g/dl (32-36); Mean Corpuscular Volume 86.9 fl (80-100); Mean Platelet Volume 9.9 fl (7.4-10.4); Monocytes Absolute Auto 0.8 K/mm3 (0.1-0.6); Monocytes Percent Auto 9.5 % (2.6-8.5); Neutrophils Absolute Auto 5.9 K/mm3 (1.3-6.7); Neutrophils Percent Auto 72.6 % (45.5-73.1); Platelet Count Result 152 k/mm3 (150-375); Red Blood Count 4.44 M/mm3 (4.6-6.20); Red Cell Distribution Width 15.6 % (11.5-14.5); White Blood Count 8.1 K/mm3 (4.5-10.0)
[2024-02-21 11:25] LABS: Alanine Aminotransferase 20 U/L (6-50); Albumin Level 3.5 g/dL (3.5-5.1); Alkaline Phosphatase 76 U/L (38-126); Anion Gap 5 mmol/L (4-12); Aspartate Amino Transferase 21 U/L (17-59); Bilirubin,Total 0.7 mg/dL (0.2-1.3); Blood Urea Nitrogen 12 mg/dL (9-20); Calcium 8.6 mg/dL (8.4-10.2); Carbon Dioxide 32 mmol/L (22-30); Chloride 100 mmol/L (98-107); Estimated CRCL calculation 105 ml/min; Estimated Glomerular Filt Rate > 60; Glucose 102 mg/dL (65-110); Potassium 4.2 mmol/L (3.4-5.0); Sodium 137 mmol/L (137-145)
[2024-02-21] MEDS: methylPREDNISolone SOD SUCC 125 MG VIAL IV PUSH (11:46)
[2024-02-21 11:50] VITALS: BP 147/90; PULSE 72; RESP 20; TEMP 36.9; O2SAT 95
[2024-02-21 11:54] LABS: Add Urine Microscopic? NO; Appearance Urine Clear (Clear); Bilirubin Urine Negative (Negative); Blood Urine Negative (Negative); Color Urine Yellow (Yellow); Glucose Urine UA Negative (Negative); Ketones Urine Negative (Negative); Leukocyte Esterase Ur Negative LEU/UL (Negative); Nitrate Urine Negative (Negative); Protein Urine Negative (Negative); Specific Grav Ur 1.012 (1.001-1.035); Urobilinogen Urine 0.2 mg/dL (<2.0)
[2024-02-21 12:48] VITALS: BP 139/81; PULSE 71; RESP 15; O2SAT 95
== END 2024-02-21 13:19 | disposition home or self-care (01) ==
PROVIDERS: Emergency Provider Nurse Practitioner Family; PCP Family Medicine
DX: R51.9 Headache, unspecified (principal); M47.812 Spondylosis without myelopathy or radiculopathy, cervical region; G20.B2 Parkinson's disease with dyskinesia, with fluctuations; I25.10 Atherosclerotic heart disease of native coronary artery without angina pectoris; I10 Essential (primary) hypertension; I25.2 Old myocardial infarction; G89.4 Chronic pain syndrome; Z95.5 Presence of coronary angioplasty implant and graft; Z97.8 Presence of other specified devices; Z87.820 Personal history of traumatic brain injury; Z87.891 Personal history of nicotine dependence; Z90.49 Acquired absence of other specified parts of digestive tract; Z79.899 Other long term (current) drug therapy; Z79.82 Long term (current) use of aspirin
CPT/HCPCS: 36415; 70450; 71045; 72125; 80053; 81003; 85025; 96374; 99284; J2919

== ENCOUNTER 2024-03-23 13:54 | Outpatient (CLI) | payer MEDICARE, OTHER, SELFPAY ==
--- NOTE | ~2024-03-23 | CT_ITS ---
EXAMINATION: CT diagnostic chest wo con DATE: 03/23/2024 14:20 INDICATION: R05.3 - Chronic cough TECHNIQUE: Computed tomography (CT) of the chest was performed without intravenous contrast. Addition al 3D reconstructions utilizing coronal maximum intensity projection (MIP) were performed. Automated exposure control and iterative reconstruction technique were employed. The dose-length product was 37 1.21 mGy-cm. COMPARISON: 11/29/2023 FINDINGS: There is elevation right hemidiaphragm with mild right basilar atelectasis. Unchanged band of discoid atelectasis/scarring in the right lower lobe. There are couple unchanged 3-4 mm nodules at the perip heral left upper lobe consistent with old granulomatous disease. No pneumonia, pulmonary edema, pleur al effusion and pneumothorax. Heart size is normal. Atherosclerotic coronary artery calcifications. N o pericardial effusion. Thoracic aorta is normal in caliber. No pathologically enlarged thoracic lymp hadenopathy. Severe lower cervical and upper thoracic spondylosis. Moderate spondylosis in the mid to lower thoracic spine with chronic mild anterior wedging at T9. Unchanged lucent T10 hemangioma. IMPRESSION: 1. Chronic elevation the right lower lobe with atelectasis/scarring at the right lung base and right lower lobe. No acute cardiopulmonary disease. Reviewed, dictated and finalized at location B. IMPRESSION: 1. Chronic elevation the right lower lobe with atelectasis/scarring at the righ t lung base and right lower lobe. No acute cardiopulmonary disease.
== END 2024-03-23 13:55 | disposition home or self-care (01) ==
PROVIDERS: PCP Family Medicine; Visit Provider Internal Medicine Critical Care Medicine
DX: R05.3 Chronic cough (principal); R91.8 Other nonspecific abnormal finding of lung field
CPT/HCPCS: 71250

== ENCOUNTER 2024-03-30 08:57 | Outpatient (CLI) | payer MEDICARE, OTHER, SELFPAY ==
--- NOTE | ~2024-03-30 | XR_ITS ---
EXAMINATION: XR barium swallow modified DATE: 03/30/2024 09:30 INDICATION: Recurring pneumonia. TECHNIQUE: The patient was given barium-containing material of multiple consistencies to swallow by t araseli speech pathologist while I performed fluoroscopy. Fluoroscopy exposure time was 1.3 minutes. The n umber of fluoroscopy images saved to the PACS was 1. Dose-area product was 1.01 Gy-cm^2. FINDINGS: There is laryngeal penetration with uncontrolled thin liquids. Head flexion is not helpful. IMPRESSION: 1. Laryngeal penetration with uncontrolled thin liquids. 2. Please refer to the speech therapy report for recommendations. Reviewed, dictated and finalized at location A.
== END 2024-03-30 08:58 | disposition home or self-care (01) ==
PROVIDERS: PCP Family Medicine; Visit Provider Nurse Practitioner Family
DX: T17.300A Unspecified foreign body in larynx causing asphyxiation, initial encounter (principal)
CPT/HCPCS: 92611

== ENCOUNTER 2024-04-06 11:13 | Emergency (ER) | payer MEDICARE, OTHER, SELFPAY ==
--- NOTE | ~2024-04-06 | CT_ITS ---
CTA brain carotid Ordering provider: Pj Urias MD History: . favoring right sided . Comparison: February 21, 2024 Technique: CT angiogram head and neck was performed following timed intravenous injection of contrast . Thin slice axial images and reformatted coronal images were obtained. Three dimensional reformatted images of the brain were also obtained using a [employer] workstation. FINDINGS: HEAD: --ANTERIOR AND MIDDLE CEREBRAL ARTERIES AND BRANCHES: Normal caliber and contour. --INTERNAL CAROTID ARTERIES: Mild atheromatous disease but no significant stenosis. No occlusion. --BASILAR ARTERY AND BRANCHES: Dominant left vertebral artery. Normal caliber and contour. No atherom atous disease. --POSTERIOR CEREBRAL ARTERIES: Normal caliber and contour --POSTERIOR COMMUNICATING ARTERIES: Not visualized which is probably related to congenital absence or small size. --ANEURYSM: None visualized. --BRAIN: No acute hemorrhage or infarct. Deep white matter ischemic changes with mild brain atrophy. --BONES AND SUPERFICIAL SOFT TISSUES: Normal. --PARANASAL SINUSES AND MASTOIDS: Left maxillary and bilateral ethmoid sinus disease. NECK: --RIGHT CERVICAL CAROTID SYSTEM: Mild atheromatous disease of the carotid bulb and proximal internal carotid artery without significant stenosis. Percent stenosis per NASCET criteria is 10%. No carotid dissection. Otherwise, no significant atheromatous disease or stenosis of the cervical carotid syste m. --LEFT CERVICAL CAROTID SYSTEM: Mild atheromatous disease of the carotid bulb and proximal internal c arotid artery without significant stenosis. Percent stenosis per NASCET criteria is 20%. No carotid dissection. Otherwise, no significant atheromatous disease or stenosis of the cervical carotid system. --VERTEBRAL ARTERIES: Dominant left vertebral arterial otherwise, Normal caliber and contour. --VISUALIZED AORTIC ARCH AND BRANCHING VESSELS: Mild atheromatous disease but no significant stenosis . --SOFT TISSUES: Normal. --CERVICAL SPINE: Age appropriate degenerative changes. IMPRESSION: l CTA head and neck. Percent stenosis per NASCET criteria is 20% on the left side. Reviewed, dictated and finalized at location A. IMPRESSION: l CTA head and neck. Percent stenosis per NASCET criteria is 20% on the left s sloane.
[2024-04-06 11:53] VITALS: BP 142/103; PULSE 83; RESP 20; TEMP 37.1; O2SAT 100
[2024-04-06 12:02] LABS: Glucose Point of Care 116 mg/dl (65-105)
--- NOTE | 2024-04-06 14:04 | ED.GENADULT ---
HPI - General Adult General Chief complaint: Weakness Stated complaint: weakness Time Seen by Provider: 04/06/24 13:39 History of Present Illness HPI narrative: 74-year-old male history of Parkinson's disease presents to the emergency department for evaluation for new patient here of leaning to the right while sitting. Patient does have Parkinson's and does affect his lower extremities. In November patient had an MRI which showed subtle but possible CVA. Family states that Tuesday the patient was doing well but Tuesday night he became more emotionally labile and became upset when the family was laughing at the family dog, family states this is unusual behavior for him. Patient did have loss of bladder control overnight on Tuesday and has been complaining of headache. Family states the patient was leaning to the right when sitting in the car. Today the patient still had difficulty ambulating. Patient denies any pain or complaint. Patient is alert oriented and is well-appearing. Related Data Home Medications Medication Instructions Recorded Confirmed pregabalin 150 mg capsule (Lyrica) 150 mg PO DAILY 03/12/20 03/28/24 carbidopa 25 mg-levodopa 100 mg 3 tablet PO TID 11/14/22 03/28/24 tablet ascorbic acid (vitamin C) 1,000 mg 1 g PO DAILY 12/14/23 03/28/24 tablet aspirin 81 mg tablet,delayed 81 mg PO DAILY 12/14/23 03/28/24 release brimonidine 0.2 % eye drops 1 drp EACH EYE BID 12/14/23 03/28/24 d-mannose 500 mg capsule 500 mg PO BID 12/14/23 03/28/24 lisinopril 10 mg tablet 10 mg PO HS 12/14/23 03/28/24 multivitamin,tx-minerals 1 tablet PO DAILY 12/14/23 03/28/24 timolol maleate 0.5 % eye drops 1 drp EACH EYE BID 12/14/23 03/28/24 vitamin B complex 1 tablet PO DAILY 12/14/23 03/28/24 alprazolam 0.25 mg tablet (Xanax) 0.25 mg PO BID PRN Anxiety 03/14/24 03/28/24 coQ10 (ubiquinol) 100 mg capsule 100 mg PO BID 03/14/24 03/28/24 duloxetine 60 mg capsule,delayed 60 mg PO QAM 03/14/24 03/28/24 release melatonin 3 mg tablet 5 mg PO HS 03/14/24 03/28/24 omega-3 fatty acids 1,000 mg PO DAILY 03/14/24 03/28/24 Allergies Allergy/AdvReac Type Severity Reaction Status Date / Time tramadol Allergy Mild SEIZURE Verified 03/28/24 13:17 Beta-Blockers AdvReac Anxiety Verified 03/28/24 13:17 (Beta-Adrenergic Bloc ticagrelor [From Brilinta] AdvReac Dyspnea / Verified 03/28/24 13:17 SOB Review of Systems Review of Systems: All systems reviewed & are unremarkable except as noted in HPI and below PMFSH Past Medical History Medical History Actinic keratoses Chronic pain syndrome Pain pump. Coffee ground emesis Colon cancer screening Coronary artery disease Depression Essential (primary) hypertension Fracture of lumbar spine Gait abnormality Gastritis due to nonsteroidal anti-inflammatory drug History of seizure Attributed to tramadol. Low back pain Myocardial infarction Neurogenic bladder Parkinson's disease Parkinson's disease with dyskinesia and fluctuating manifestations Parkinsonism Pelvic fracture Reflux esophagitis Traumatic brain injury Urethral stricture Surgical History Surgical History History of appendectomy History of cardiac catheterization 03/13/2020, 03/20/2021, 09/11/2021 History of cholecystectomy History of coronary artery stent placement History of dilation of urethra History of esophagogastroduodenoscopy (EGD) History of lumbar surgery History of partial colectomy History of tonsillectomy Status post glaucoma surgery Family History Family History Mother Diabetes mellitus Patient's mother is Father Patient's father is Sibling Breast cancer Cancer Son Thyroid cancer Melanoma Social History Social History Social
[2024-04-06 14:09] LABS: Basophils Percent Auto 0.3 % (0.2-1.2); Eosinophils Absolute Auto 0.2 K/mm3 (0-0.3); Hemoglobin 13.2 g/dL (14.0-18.0); Immature Granulocyte Absolute 0.02 K/mm3 (0.00-0.031); Immature Granulocyte Percent A 0.3 % (0-0.5); Lymphocytes Absolute Auto 0.75 K/mm3 (0.9-3.2); Lymphocytes Percent Auto 10.2 % (18.3-44.2); Mean Corpuscular HGB Conc 32.2 g/dl (32-36); Mean Corpuscular Volume 86.9 fl (80-100); Monocytes Absolute Auto 0.6 K/mm3 (0.1-0.6); Monocytes Percent Auto 8.6 % (2.6-8.5); Neutrophils Absolute Auto 5.7 K/mm3 (1.3-6.7); Neutrophils Percent Auto 77.6 % (45.5-73.1); Platelet Count Result 143 k/mm3 (150-375); Red Blood Count 4.72 M/mm3 (4.6-6.20); Red Cell Distribution Width 15.5 % (11.5-14.5); White Blood Count 7.3 K/mm3 (4.5-10.0)
[2024-04-06 14:21] LABS: Alkaline Phosphatase 80 U/L (38-126); Anion Gap 8 mmol/L (4-12); Aspartate Amino Transferase 23 U/L (17-59); Bilirubin,Total 1.1 mg/dL (0.2-1.3); Blood Urea Nitrogen 16 mg/dL (9-20); Calcium 8.7 mg/dL (8.4-10.2); Carbon Dioxide 28 mmol/L (22-30); Chloride 100 mmol/L (98-107); Estimated Glomerular Filt Rate > 60; Glucose 113 mg/dL (65-110); Sodium 136 mmol/L (137-145)
[2024-04-06 14:33] LABS: INR 1.1; Prothrombin Time 14.9 Seconds (11.1-14.7)
[2024-04-06 14:34] LABS: Partial Thromboplastin Time 36.7 Seconds (22.3-36.8)
[2024-04-06 14:40] LABS: Alanine Aminotransferase < 6 U/L (6-50)
[2024-04-06 14:45] VITALS: BP 114/75; PULSE 93; RESP 19; O2SAT 94
[2024-04-06 14:53] LABS: Influenza A QL RT-PCR Negative (Negative); Influenza B QL RT-PCR Negative (Negative); RSV RNA, RT-PCR Negative (Negative); SARS-CoV-2 RNA PCR Negative (Negative)
[2024-04-06 15:45] VITALS: BP 111/77; PULSE 93; RESP 20; O2SAT 94
[2024-04-06 17:05] VITALS: TEMP 36.8
--- NOTE | 2024-04-06 17:22 | PC.NURSE ---
1705-ATTEMPTED TO AMBULATE PATIENT. TOOK ASSISTANCE OF TWO AND USE OF WALKER TO GET PATIENT TO STAND. DESPITE INSTRUCTION ON MOVING FEET, PATIENT REMAINED FROZEN IN BENT OVER POSITION. TOOK ASSISTANCE OF THREE TO GET PATIENT BACK INTO STRETCHER. UPDATE TO ERP.
--- NOTE | 2024-04-06 17:39 | PC.NURSE ---
1730-SECOND ATTEMPT TO AMBULATE PATIENT WAS UNSUCCESSFUL. PATIENT STOOD WITH USE OF WALKER AND ASSISTANCE OF THREE. AGAIN, PATIENT WAS UNABLE TO MOVE HIS FEET AND STOOD IN BENT OVER POSITION AND LEANING TO THE RIGHT. ERP WAS PRESENT DURING THIS AMBULATION ATTEMPT.
[2024-04-06 18:42] VITALS: BP 129/85; PULSE 96; RESP 18; O2SAT 92
--- NOTE | 2024-04-06 19:00 | PC.NURSE ---
Phone report given to Sarkis DANIEL at [phone]. Patient assigned to room 3[address] with [address] Blood.
== END 2024-04-06 19:30 | disposition short-term general hospital (02) ==
PROVIDERS: Emergency Provider Emergency Medicine; PCP Family Medicine
DX: R26.2 Difficulty in walking, not elsewhere classified (principal); Z20.822 Contact with and (suspected) exposure to COVID-19; G20.A1 Parkinson's disease without dyskinesia, without mention of fluctuations; Z79.82 Long term (current) use of aspirin; I25.10 Atherosclerotic heart disease of native coronary artery without angina pectoris; I10 Essential (primary) hypertension; F17.210 Nicotine dependence, cigarettes, uncomplicated
CPT/HCPCS: 36415; 70496; 70498; 80053; 82948; 85025; 85610; 85730; 87637; 99285; Q9967

== ENCOUNTER 2024-05-03 12:43 | Outpatient (CLI) | payer MEDICARE, OTHER, SELFPAY ==
--- NOTE | 2024-05-03 16:04 | WPDPFTINT ---
PFT Procedure Performed PFT Procedure Performed Spirometry with Pre/Post Bronchodilator Plethysmography (Lung Vol) Diffusing Cap (DLCO) Flow Vol Loop PFT Interpretation This is a pulmonary function test with pre and post-bronchodilator spirometry, plethysmography and diffusing capacity. The test was performed and results interpreted in accordance with the 2019 and 2005 ATS/ERS Task Force guidelines respectively using the Global Lung Function Initiative-2012 reference equations. Patient demonstrated good effort and cooperation. Reproducibility criteria were met. The quality of the pre bronchodilator spirometry maneuver was Grade B and post bronchodilator spirometry maneuver was Grade B. Of note, patient has Parkinson's disease and did all testing to the best of his ability. Findings: Spirometry: The contour the inspiratory and expiratory flow tracing are normal. The pre bronchodilator FVC is 1.97 L, 43% predicted. The pre bronchodilator FEV1 is 1.56 L, 46% predicted. The pre bronchodilator FEV1: FVC ratio 79%. The post bronchodilator FVC is 1.67 L, representing a 15% decrease. The post bronchodilator FEV1 is 1.37 L, representing a 12% decrease. The post bronchodilator FEV1: FVC ratio is 82%. Plethysmography: The total lung capacity is 5.46 L, 70% predicted. The functional residual capacity is 2.15 L, 50% predicted. The residual volume is 2.13 L, 76% predicted. Diffusing capacity: The diffusing capacity unadjusted for hemoglobin and carboxyhemoglobin is 15.5, 59% predicted. Diffusing capacity adjusted for alveolar volume is 5.38, 153% predicted. Impression: There is a severe restrictive ventilatory abnormality. The spirometry is normal without evidence of an obstructive abnormality. There is a significant decrease in the post bronchodilator FVC and FEV1 consistent with a possible paradoxical bronchoconstriction after inhaled albuterol. Clinical correlation is recommended. The diffusing capacity unadjusted for hemoglobin and carboxyhemoglobin is moderately decreased and is increased when adjusted for alveolar volume. There are no prior studies for comparison
== END 2024-05-03 12:44 | disposition home or self-care (01) ==
LOC: ANHPFT 12:45
PROVIDERS: PCP Family Medicine; Visit Provider Internal Medicine Critical Care Medicine
DX: J44.9 Chronic obstructive pulmonary disease, unspecified (principal); R94.2 Abnormal results of pulmonary function studies
CPT/HCPCS: 94060; 94726; 94729

== ENCOUNTER 2024-05-21 14:41 | Outpatient (NON) | payer MEDICARE, OTHER, SELFPAY ==
[2024-05-21 15:29] LABS: Add Urine Microscopic? NO; Appearance Urine Clear (Clear); Bilirubin Urine Negative (Negative); Blood Urine Negative (Negative); Color Urine Yellow (Yellow); Glucose Urine UA Negative (Negative); Ketones Urine Negative (Negative); Leukocyte Esterase Ur Negative LEU/UL (Negative); Nitrate Urine Negative (Negative); Protein Urine Negative (Negative); Specific Grav Ur 1.006 (1.001-1.035); Urobilinogen Urine 0.2 mg/dL (<2.0); pH Urine 6.5 (5.0-9.0)
== END 2024-05-21 14:42 | disposition home or self-care (01) ==
PROVIDERS: PCP Family Medicine; Visit Provider Family Medicine
DX: N39.0 Urinary tract infection, site not specified (principal); R13.10 Dysphagia, unspecified; S83.281D Other tear of lateral meniscus, current injury, right knee, subsequent encounter; S83.241D Other tear of medial meniscus, current injury, right knee, subsequent encounter; G20.B2 Parkinson's disease with dyskinesia, with fluctuations; X58.XXXD Exposure to other specified factors, subsequent encounter
CPT/HCPCS: 81003

== ENCOUNTER 2024-05-23 12:07 | Inpatient (IN) | payer MEDICARE, OTHER, SELFPAY ==
[2024-05-23] VITALS (14 sets, daily range): BP systolic 117–143; BP diastolic 70–85; PULSE 72–90; RESP 14–20; TEMP 36.4–36.9; O2SAT 88–96; BMI 28.1
--- NOTE | ~2024-05-23 | US_ITS ---
EXAMINATION: US venous doppler [facility] DATE: 05/25/2024 14:01 INDICATION: Lower limb edema. TECHNIQUE: Grayscale ultrasound images without and with compression and Doppler ultrasound images of the bilateral lower extremity veins were obtained. COMPARISON: Ultrasound 10/10/2023 FINDINGS: The visualized portions of right common femoral vein, profunda (deep) femoral vein, femoral vein, pop liteal vein, peroneal veins, posterior tibial veins, and greater saphenous vein outflow are patent. The visualized portions of left common femoral vein, profunda femoral vein, femoral vein, popliteal v ein, peroneal veins, posterior tibial veins, and greater saphenous vein outflow are patent. IMPRESSION: 1. No deep venous thrombosis. Reviewed, dictated and finalized at location A. WELL SERVICES SUPERVISOR
--- NOTE | ~2024-05-23 | XR_ITS ---
EXAMINATION: XR sniff test with CXR2V DATE: 05/25/2024 14:48 INDICATION: Elevated right hemidiaphragm. TECHNIQUE: Frontal and lateral views of the chest were obtained. I performed fluoroscopy of the chest while the patient performed normal breathing, deep respiration, and forceful sniffing. The number of fluoroscopy images was 904. The fluoroscopy time was 0.5 minutes. COMPARISON: Chest CT 05/23/2024, chest 2 views 05/23/2024 FINDINGS: CHEST TWO VIEWS: The lung volumes are small. There is mild relative elevation of right hemidiaphragm. There is mild atelectasis at the lung bases. There is a small left pleural effusion. No pneumothorax . The heart size is normal. SNIFF TEST: There is normal and symmetric motion of the right and left sides of the diaphragm. IMPRESSION: 1. Small lung volumes with mild atelectasis at the lung bases. 2. Normal motion of the diaphragm. 3. Small left pleural effusion. Reviewed, dictated and finalized at location A. TAIN SERVER
--- NOTE | ~2024-05-23 | US_ITS ---
EXAMINATION: US carotid duplex BI DATE: 05/28/2024 14:43 INDICATION: Encephalopathy with more unresponsive the normal. Cerebral atherosclerosis. TECHNIQUE: Grayscale, color Doppler, and pulsed Doppler images of the cervical carotid arteries were obtained. The degree of vessel stenosis is placed in one of the following categories: normal, <50%, 5 0-69%, >=70% but less than near-occlusion, near-occlusion, or total occlusion. Note that percent sten osis relative to normal distal artery lumen diameter is indirectly measured from velocity measurement s as described by Isidoro, et al. Radiology 2003; 229:340-346. COMPARISON: None. FINDINGS: RIGHT: The right common carotid artery (CCA) peak systolic velocity (PSV) is 86 cm/s. The right internal car otid artery (ICA) PSV is 61 cm/s. The right ICA end-diastolic velocity (EDV) is 16 cm/s. The right IC A/CCA PSV ratio is 0.7. Grayscale and color Doppler images yield an estimate of <50% diameter reducti on from plaque in the ICA. The external carotid artery (ECA) PSV is 127 cm/s. There is antegrade flow in the right vertebral artery. LEFT: The left CCA PSV is 66 cm/s. The left ICA PSV is 72 cm/s. The left ICA EDV is 18 cm/s. The left ICA/C CA PSV ratio is 1.1. Grayscale and color Doppler images yield an estimate of <50% diameter reduction from plaque in the ICA. The ECA PSV is 124 cm/s. There is antegrade flow in the left vertebral artery . IMPRESSION: 1. <50% stenosis in the right internal carotid artery. 2. <50% stenosis in the left internal carotid artery. Reviewed, dictated and finalized at location B. CIL CUTTER MACHINE
--- NOTE | ~2024-05-23 | CT_ITS ---
EXAMINATION: CTA chest PE protocol DATE: 05/23/2024 18:49 LEAD SYSTEMS ANALYST INDICATION: Shortness of breath, pulmonary embolus suspected clinically TECHNIQUE: Computed tomographic angiography (CTA) of the chest was performed with 100 mL Omnipaque-35 0 intravenous contrast. The dose-length product was 536.17 mGy-cm. Maximum intensity projection 3D-re constructions of the aorta and other arteries were constructed by the technologist on a separate work station. COMPARISON: 03/23/2024 and 11/29/2023 FINDINGS: No filling defect is identified within the main or proximal pulmonary arteries. Extremely low lung volumes are detected secondary to elevation of the right hemidiaphragm (unchanged from prior). The thoracic aorta is unremarkable, without aneurysmal dilatation or dissection. The lungs demonstrate pulmonary vascular crowding, but are unremarkable. Within the upper abdomen: Significant elevation of the right hemidiaphragm. The gallbladder is only minimally distended but otherwise unremarkable. The bilateral kidneys are without calcified stones. IMPRESSION: No pulmonary embolism No aortic dissection. Extremely low lung volumes secondary to elevation of the right hemidiaphragm, unchanged from prior st udies. Reviewed, dictated and finalized at location A. SYSTEMS ANALYST IMPRESSION: No pulmonary embolism No aortic dissection. Extremely low lung volumes secondary to elevation of the right hemidiaphragm, u nchanged from prior studies.
--- NOTE | ~2024-05-23 | MR_ITS ---
MR brain/brain stem wo/w con Ordering provider: Miladis Allen APRN History: 74 years Male with . ams . Comparison: CT head performed yesterday. Technique: MRI brain was performed with and without contrast. 20 mL of MultiHance was given IV. FINDINGS: BONES: Normal. CRANIOCERVICAL JUNCTION: normal. PITUITARY: Normal. MAJOR INTRACRANIAL VESSELS: Normal flow void. OPTIC NERVES AND CRANIAL NERVES VII AND VIII COMPLEXES: Grossly normal. BRAIN PARENCHYMA AND CSF SPACES: Mild nonspecific T2 white matter hyperintensities are seen in a padmini ateral periventricular and deep white matter distribution which are likely related to chronic ischemi c small vessel disease. Mild diffuse cortical atrophy. Old lacunar infarct in the right cerebellar he misphere. Ventricular dilatation. The brainstem and cerebellum are normal. No acute or chronic intrac ranial hemorrhage. No extra axial fluid collections. Diffusion weighted and ADC mapping images reveal no recent ischemia. No midline shift or mass effect. No abnormal contrast enhancement. PARANASAL SINUSES: Left maxillary sinus disease. Bilateral ethmoid sinus disease. MASTOIDS: Normal SUPERFICIAL/SURROUNDING SOFT TISSUES: Normal. IMPRESSION: 1. No acute intracranial process. 2. No abnormal enhancement. 3. Brain atrophy with deep white matter ischemic changes and ventricular dilatation. Reviewed, dictated and finalized at location A. EGE COUNSELOR IMPRESSION: 1. No acute intracranial process. 2. No abnormal enhancement. 3. Brain atrophy with deep white matter ischemic changes and ventricular dilat ation.
--- NOTE | ~2024-05-23 | XR_ITS ---
XR chest 2V Ordering provider: Pj Urias MD History: 74 years Male with . weakness, SOB, SWELLING IN B/L HANDS X5 DAYS, WHEEZING . Comparison: None. FINDINGS: MEDIASTINUM: The cardiac silhouette is slightly enlarged. Elevation of the right hemidiaphragm. LUNGS: No infiltrates, effusions or pneumothorax. OTHER: No free air under the diaphragm. IMPRESSION: No acute cardiopulmonary pathology. Reviewed, dictated and finalized at location A. ITY ASSURANCE CLERK
--- NOTE | ~2024-05-23 | CT_ITS ---
Non-contrast Head CT History: Unresponsive COMPARISON: 04/06/2024 Technique: Axial non-contrast imaging of the brain was performed. Dose reduction technique was used on this scan by utilizing automated exposure control and iterative reconstruction technique. The dose -length product (DLP) was 681.00 mGy-cm. Findings: There is no evidence of intracranial hemorrhage, mass lesion, or acute infarct. Brain par enchyma appears normal. The ventricles and subarachnoid spaces are mildly dilated. The calvarium ap pears normal. There is mild left maxillary sinus disease. The remaining visualized paranasal sinuses and mastoid air cells are clear. Impression: No acute intracranial abnormality seen. Case discussed with Miladis Allen at 9:45 AM on 05/28/2024. Reviewed, dictated and finalized at location . OVEN PATCHER Impression: No acute intracranial abnormality seen. Case discussed with Miladis Allen at 9:45 AM on 05/28/2024.
--- NOTE | 2024-05-23 12:25 | ECG_ITS ---
Test Date: 2024-05-23 12:17:56 Measurements Intervals [place] Rate: 90 P: 15 AL: 159 QRS: -3 QRSD: 86 T: 0 QT: 340 QTc: 417 Interpretive Statements SINUS RHYTHM EARLY PRECORDIAL R/S TRANSITION BORDERLINE T WAVE ABNORMALITY- INFERIOR LEADS BASELINE ARTIFACT- I, II, III, AVR, AVL ,AVF, V1-V6 BORDERLINE ECG No previous ECG available for comparison Electronically Signed On 05-23-2024 12:53:01 FAMILY ASSISTANT by Yusuf Deluca D.O.
[2024-05-23 12:46] LABS: Basophils Percent Auto 0.4 % (0.2-1.2); Eosinophils Absolute Auto 0.1 K/mm3 (0-0.3); Eosinophils Percent Auto 1.7 % (0-4.4); Hematocrit 36.5 % (42.0-52.0); Hemoglobin 11.7 g/dL (14.0-18.0); Immature Granulocyte Absolute 0.03 K/mm3 (0.00-0.031); Immature Granulocyte Percent A 0.4 % (0-0.5); Lymphocytes Absolute Auto 0.84 K/mm3 (0.9-3.2); Lymphocytes Percent Auto 10.9 % (18.3-44.2); Mean Corpuscular HGB Conc 32.1 g/dl (32-36); Mean Corpuscular Hemoglobin 26.7 pg (26-34); Mean Corpuscular Volume 83.1 fl (80-100); Mean Platelet Volume 9.3 fl (7.4-10.4); Monocytes Absolute Auto 0.7 K/mm3 (0.1-0.6); Monocytes Percent Auto 9.2 % (2.6-8.5); Neutrophils Percent Auto 77.4 % (45.5-73.1); Platelet Count Result 265 k/mm3 (150-375); Red Blood Count 4.39 M/mm3 (4.6-6.20); Red Cell Distribution Width 14.8 % (11.5-14.5); White Blood Count 7.7 K/mm3 (4.5-10.0)
[2024-05-23 12:59] LABS: Alanine Aminotransferase 6 U/L (6-50); Albumin Level 3.6 g/dL (3.5-5.1); Alkaline Phosphatase 76 U/L (38-126); Anion Gap 5 mmol/L (4-12); Aspartate Amino Transferase 25 U/L (17-59); Bilirubin,Total 0.7 mg/dL (0.2-1.3); Blood Urea Nitrogen 20 mg/dL (9-20); Calcium 8.9 mg/dL (8.4-10.2); Carbon Dioxide 32 mmol/L (22-30); Chloride 96 mmol/L (98-107); Estimated CRCL calculation 122 ml/min; Estimated Glomerular Filt Rate > 60; Glucose 122 mg/dL (65-110); Potassium 4.4 mmol/L (3.4-5.0); Sodium 133 mmol/L (137-145)
[2024-05-23 13:07] LABS: NT Pro B Type Natriuretic Pept 100 pg/mL (19.9-100)
--- NOTE | 2024-05-23 15:33 | ED_ITS ---
HPI - General Adult General Chief complaint: Weakness Stated complaint: weakness Time Seen by Provider: 05/23/24 14:10 History of Present Illness HPI narrative: 74-year-old male presenting to the emergency department for evaluation for increased generalized weakness. Patient does have history of Parkinson's disease. Patient also does have a prior history of aspiration pneumonia and was diagnosed with a pulmonary embolism and Emiliana and has been taking Xarelto. Family is concerned due to the patient's physical deconditioning, increased generalized weakening and swelling of his hands bilaterally. Patient did have some increased wheezing this morning. Related Data Home Medications Medication Instructions Recorded Confirmed pregabalin 150 mg capsule (Lyrica) 150 mg PO HS 03/12/20 05/15/24 carbidopa 25 mg-levodopa 100 mg 3 tablet PO TID 11/14/22 05/15/24 tablet ascorbic acid (vitamin C) 1,000 mg 1 g PO DAILY 12/14/23 05/15/24 tablet aspirin 81 mg tablet,delayed 81 mg PO HS 12/14/23 05/15/24 release d-mannose 500 mg capsule 500 mg PO USEASDIRECTD 12/14/23 05/15/24 duloxetine 60 mg capsule,delayed 60 mg PO QAM 03/14/24 05/15/24 release B-complex with vitamin C 1 tablet PO DAILY 04/09/24 05/15/24 atorvastatin 40 mg tablet 40 mg PO HS 04/09/24 05/15/24 cetirizine 10 mg tablet 10 mg PO DAILY 04/09/24 05/15/24 cranberry extract 500 mg tablet 500 mg PO DAILY 04/09/24 05/15/24 diclofenac sodium 1 % topical gel 2 g topical QID 04/09/24 05/15/24 magnesium oxide 400 mg (241.3 mg 400 mg PO DAILY 04/09/24 05/15/24 magnesium) tablet melatonin 5 mg PO HS 04/09/24 05/15/24 mv-folic acid 200 mcg-D3 300 1 tablet PO DAILY 04/09/24 05/15/24 unit-K2 20 [id number] tablet (Stages Men's Multi-Vitamin) tobramycin-dexamethasone 0.3 %-0.1 1 applic RIGHT EYE TID 04/09/24 05/15/24 % eye ointment (TobraDex) brimonidine 0.2 %-timolol 0.5 % drp EACH EYE 04/24/24 05/15/24 eye drops lisinopril 10 mg tablet mg PO 04/24/24 05/15/24 fluticasone fur. 100 mcg-umeclid 1 inh inhalation Q24H 05/11/24 05/15/24 62.5 mcg-vilant 25 mcg inhalat.powder (Trelegy Ellipta) Allergies Allergy/AdvReac Type Severity Reaction Status Date / Time tramadol Allergy Mild SEIZURE Verified 05/11/24 11:15 Beta-Blockers AdvReac Anxiety Verified 05/11/24 11:15 (Beta-Adrenergic Bloc ticagrelor [From Brilinta] AdvReac Dyspnea / Verified 05/11/24 11:15 SOB Review of Systems Review of Systems: All systems reviewed & are unremarkable except as noted in HPI and below PMFSH Past Medical History Medical History Actinic keratoses Chronic pain syndrome Pain pump. Coffee ground emesis Colon cancer screening Coronary artery disease Depression Essential (primary) hypertension Fracture of lumbar spine Gait abnormality Gastritis due to nonsteroidal anti-inflammatory drug History of seizure Attributed to tramadol. Low back pain Myocardial infarction Neurogenic bladder OAB OAB (overactive bladder) Parkinson's disease Parkinson's disease with dyskinesia and fluctuating manifestations Parkinsonism Pelvic fracture Reflux esophagitis Traumatic brain injury Urethral stricture Surgical History Surgical History History of appendectomy History of cardiac catheterization 03/13/2020, 03/20/2021, 09/11/2021 History of cholecystectomy History of coronary artery stent placement History of dilation of urethra History of esophagogastroduodenoscopy (EGD) History of lumbar surgery History of partial colectomy History of tonsillectomy Status post glaucoma surgery Family History Family History Mother Diabetes mellitus Patient's mother is Father Patient's father is Sibling Breast cancer Cancer Son Thyroid cancer Melanoma Social History Social History Social History: Surrogate medical decision maker: Madan Wellington (son) or Stefanie Wellington (spouse). Code status: Full code. Smoking packs per day: 0.5 Smoking cigarettes per day: 10.0 Years smoked: 1 Smoking pack-years: 0.50 Smoking status: Former smoker Tobacco type: cigarettes Second hand tobacco smoke exposure: No Smoking end date: 07/11/69 Alcohol intake: never Substance use: never Substance use type: does not use Last use: quit drinking about a year ago when started on Parkinson's med Do You Feel Safe in your Home?: Yes Lack of Transportation: No Lack of Food: Never True Current Housing: I Have Housing Concerned About Future Housing: No Difficulty Paying Gas/Electric Bills: No Difficulty Paying for Meds: No Currently Unemployed: No Education: Bachelor's Degree Difficulty w/ Childcare or Family Care: No Living arrangements: with family Spiritual care concerns: No Exam Narrative: APPEARANCE: ill-appearing HEAD: normocephalic, atraumatic. EYES: PERRLA/EOMI, conjunctivae clear. NOSE: Normal no drainage NECK: Supple. No adenopathy, no masses. RESPIRATORY: Airway patent, respirations nonlabored. Clear to auscultation bilaterally, no rales, rhonchi, wheezing. CARDIOVASCULAR: Regular rate and rhythm without murmurs rubs or gallops. ABDOMINAL: Soft, nontender, nondistended, normal bowel sounds MUSCULOSKELETAL: upper extremity edema of the hands NEURO: Alert. Cranial nerves II through XII intact. grossly intact SKIN: Warm, dry. Normal Color Course Vital Signs Vital signs: Vital Signs Temperature 98.4 F 05/23/24 12:06 Pulse Rate 90 05/23/24 12:06 Respiratory Rate 18 05/23/24 12:06 Blood Pressure 125/83 05/23/24 12:06 Pulse Oximetry 89 L 05/23/24 12:06 Oxygen Delivery Room Air 05/23/24 12:06 Temperature 98.4 F 05/23/24 12:06 Pulse Rate 79 05/23/24 18:41 Respiratory Rate 15 05/23/24 18:41 Blood Pressure 117/71 05/23/24 18:41 Pulse Oximetry 94 05/23/24 18:41 Oxygen Delivery Nasal Cannula 05/23/24 13:31 Oxygen Flow Rate 5 05/23/24 13:31 Medical Decision Making MDM Narrative Medical decision making narrative: 74-year-old male with history of Parkinson's presented the emergency department for evaluation for increased generalized weakness. Patient is afebrile with no leukocytosis and hemoglobin 11.7. Patient's CMP is similar to his baseline. UA shows no evidence of infection. Patient is negative for influenza a influenza B RSV and COVID. Chest x-ray showed no evidence of pulmonary edema or acute focal pneumonia. Due to the patient having prior history of pulmonary embolism CTA was ordered. Family does not feel that she is able to care for the patient home so she is requesting admission. Patient wa s comfortable this plan. Discussed the case with the hospitalist patient was accepted for admission. Differential Diagnosis Differential Diagnosis: pulmonary embolism, pneumonia, COVID, RSV, influenza, UTI Vital Signs Vital Signs: Vital Signs Temperature 98.4 F 05/23/24 12:06 Pulse Rate 90 05/23/24 12:06 Respiratory Rate 18 05/23/24 12:06 Blood Pressure 125/83 05/23/24 12:06 Pulse Oximetry 89 L 05/23/24 12:06 Oxygen Delivery Room Air 05/23/24 12:06 Temperature 98.4 F 05/23/24 12:06 Pulse Rate 79 05/23/24 18:41 Respiratory Rate 15 05/23/24 18:41 Blood Pressure 117/71 05/23/24 18:41 Pulse Oximetry 94 05/23/24 18:41 Oxygen Delivery Nasal Cannula 05/23/24 13:31 Oxygen Flow Rate 5 05/23/24 13:31 Lab Data Lab results reviewed: Yes I reviewed the patient's lab results. 05/23/24 12:33 05/23/24 12:33 Labs: Lab Results 05/23/24 05/23/24 05/23/24 Range/Units 12:33 12:33 14:56 WBC 7.7 (4.5-10.0) K/mm3 RBC 4.39 L (4.6-6.20) M/mm3 Hgb 11.7 L (14.0-18.0) g/dL Hct 36.5 L (42.0-52.0) % MCV 83.1 (80-100) fl MCH 26.7 (26-34) pg MCHC 32.1 (32-36) g/dl RDW 14.8 H (11.5-14.5) % Plt Count 265 D (150-375) k/mm3 MPV 9.3 (7.4-10.4) fl Immature Gran % (Auto) 0.4 (0-0.5) % Neut % (Auto) 77.4 H (45.5-73.1) % Lymph % (Auto) 10.9 L (18.3-44.2) % [place] % (Auto) 9.2 H (2.6-8.5) % Eos % (Auto) 1.7 (0-4.4) % Baso % (Auto) 0.4 (0.2-1.2) % Lymph # (Auto) 0.84 L (0.9-3.2) K/mm3 [place] # (Auto) 0.7 H (0.1-0.6) K/mm3 Eos # (Auto) 0.1 (0-0.3) K/mm3 Baso # (Auto) 0.0 (0.0-0.1) K/mm3 Abs Immat Gran (auto) 0.03 (0.00-0.031) K/mm3 Absolute Neuts (auto) 6.0 (1.3-6.7) K/mm3 Absolute Nucleated RBC 0.000 (0.0-0.012) K/mm3 Nucleated RBC % 0.0 (0.0-0.2) % Sodium 133 L (137-145) mmol/L Potassium 4.4 (3.4-5.0) mmol/L Chloride 96 L (98-107) mmol/L Carbon Dioxide 32 H (22-30) mmol/L Anion Gap 5 (4-12) mmol/L BUN 20 (9-20) mg/dL Creatinine 0.50 L (0.7-1.3) mg/dL Estim Creat Clear Calc 122 ml/min Estimated GFR > 60 (59 - ) Glucose 122 H (65-110) mg/dL Calcium 8.9 (8.4-10.2) mg/dL Total Bilirubin 0.7 (0.2-1.3) mg/dL AST 25 (17-59) U/L ALT 6 (6-50) U/L Alkaline Phosphatase 76 (38-126) U/L NT-Pro-B Natriuret Pep 100 Cancelled (19.9-100) pg/mL Total Protein 7.0 (6.3-8.2) g/dL Albumin 3.6 (3.5-5.1) g/dL Urine Color (Yellow) Urine Appearance (Clear) Urine pH (5.0-9.0) Ur Specific [place] (1.001-1.035) Urine Protein (Negative) mg/dL Urine Glucose (UA) (Negative) mg/dL Urine Ketones (Negative) mg/dL Ur Blood (Man) (Negative) Urine Nitrate (Negative) Urine Bilirubin (Negative) Urine Urobilinogen (<2.0) mg/dL Leukocyte Esterase Rfl (Negative) CISCO/UL Influenza A (RT-PCR) Negative (Negative) Influenza B (RT-PCR) Negative (Negative) RSV (RT-PCR) Negative (Negative) SARS-CoV-2 RNA (RT-PCR) Negative (Negative) 05/23/24 Range/Units 17:25 WBC (4.5-10.0) K/mm3 RBC (4.6-6.20) M/mm3 Hgb (14.0-18.0) g/dL Hct (42.0-52.0) % MCV (80-100) fl MCH (26-34) pg MCHC (32-36) g/dl RDW (11.5-14.5) % Plt Count (150-375) k/mm3 MPV (7.4-10.4) fl Immature Gran % (Auto) (0-0.5) % Neut % (Auto) (45.5-73.1) % Lymph % (Auto) (18.3-44.2) % [place] % (Auto) (2.6-8.5) % Eos % (Auto) (0-4.4) % Baso % (Auto) (0.2-1.2) % Lymph # (Auto) (0.9-3.2) K/mm3 [place] # (Auto) (0.1-0.6) K/mm3 Eos # (Auto) (0-0.3) K/mm3 Baso # (Auto) (0.0-0.1) K/mm3 Abs Immat Gran (auto) (0.00-0.031) K/mm3 Absolute Neuts (auto) (1.3-6.7) K/mm3 Absolute Nucleated RBC (0.0-0.012) K/mm3 Nucleated RBC % (0.0-0.2) % Sodium (137-145) mmol/L Potassium (3.4-5.0) mmol/L Chloride (98-107) mmol/L Carbon Dioxide (22-30) mmol/L Anion Gap (4-12) mmol/L BUN (9-20) mg/dL Creatinine (0.7-1.3) mg/dL Estim Creat Clear Calc ml/min Estimated GFR (59 - ) Glucose (65-110) mg/dL Calcium (8.4-10.2) mg/dL Total Bilirubin (0.2-1.3) mg/dL AST (17-59) U/L ALT (6-50) U/L Alkaline Phosphatase (38-126) U/L NT-Pro-B Natriuret Pep (19.9-100) pg/mL Total Protein (6.3-8.2) g/dL Albumin (3.5-5.1) g/dL Urine Color Dark yellow (Yellow) Urine Appearance Clear (Clear) Urine pH 6.5 (5.0-9.0) Ur Specific [place] 1.017 (1.001-1.035) Urine Protein Negative (Negative) mg/dL Urine Glucose (UA) Negative (Negative) mg/dL Urine Ketones Negative (Negative) mg/dL Ur Blood (Man) Negative (Negative) Urine Nitrate Negative (Negative) Urine Bilirubin Negative (Negative) Urine Urobilinogen 1.0 (<2.0) mg/dL Leukocyte Esterase Rfl Negative (Negative) CISCO/UL Influenza A (RT-PCR) (Negative) Influenza B (RT-PCR) (Negative) RSV (RT-PCR) (Negative) SARS-CoV-2 RNA (RT-PCR) (Negative) Imaging Data Radiologist's impression: Impressions Chest X-Ray 05/23/24 13:06 IMPRESSION: No acute cardiopulmonary pathology. Discharge Plan Discharge Clinical Impression: Hypoxia, Parkinson's disease, Generalized muscle weakness, Hand edema Patient Disposition: Still a Patient Condition: Stable
[2024-05-23 15:43] LABS: Influenza A QL RT-PCR Negative (Negative); Influenza B QL RT-PCR Negative (Negative); RSV RNA, RT-PCR Negative (Negative); SARS-CoV-2 RNA PCR Negative (Negative)
[2024-05-23] MEDS: ACETAMINOPHEN 500 MG TABLET 1000 MG PO (16:15)
[2024-05-23 17:31] LABS: Add Urine Microscopic? YES; Appearance Urine Clear (Clear); Bilirubin Urine Negative (Negative); Blood Urine Negative (Negative); Color Urine Dark Yellow (Yellow); Glucose Urine UA Negative (Negative); Ketones Urine Negative (Negative); Leukocyte Esterase Ur Negative LEU/UL (Negative); Nitrate Urine Negative (Negative); Protein Urine Negative (Negative); Specific Grav Ur 1.017 (1.001-1.035); pH Urine 6.5 (5.0-9.0)
--- NOTE | 2024-05-23 19:05 | PM.IMHP ---
H&P: HPI History of Present Illness Date/Time: 05/23/24 19:05 Chief Complaint: Weakness, Headache Narrative: 74 y/o M presents here with weakness and headache with PMH of Parkinson's, pulmonary embolism, aspiration pneumonia, chronic pain syndrome, CAD w/stent placed, HTN, [place], neurogenic bladder, and TBI. The patient presents here from home via EMS for further evaluation of generalized weakness and headache. EMS reported that they have been called for lift assist multiple times this week. However today, they felt he was more weak and had significantly more difficulty moving. Denies chest pain, shortness of breath, focal numbness/weakness, changes in speech, melena, BRB per rectum, dizziness, or blurred vision. He currently lives at home with his who primarily helps to care for him. Does currently have a home health nurse twice per week and speech therapist who comes twice per week. She feels she is not currently able to take care of him safely at home given the significant weakness. Initial VS at presentation: 98.4? F, HR 90, RR 18, 125/83, and 89% on room air. Now on 5L NC and 94%. ED workup showed: No leukocytosis, hemoglobin 11.7 (previously 13.3 on 04/17/2024), creatinine 0.5 and GFR >60, UA unremarkable, viral PCR negative. CXR showed no acute cardiopulmonary pathology. CTA chest showed no PE, no aortic dissection, and extremely low lung volumes secondary to elevation of the right diaphragm (unchanged from prior studies). Review of Systems Review of Systems: All systems reviewed & are unremarkable except as noted in HPI and below PMFSH Past Medical History Medical History Actinic keratoses Chronic pain syndrome Pain pump. Coffee ground emesis Colon cancer screening Coronary artery disease Depression Essential (primary) hypertension Fracture of lumbar spine Gait abnormality Gastritis due to nonsteroidal anti-inflammatory drug History of seizure Attributed to tramadol. Low back pain Myocardial infarction Neurogenic bladder OAB OAB (overactive bladder) Parkinson's disease Parkinson's disease with dyskinesia and fluctuating manifestations Parkinsonism Pelvic fracture Reflux esophagitis Traumatic brain injury Urethral stricture Surgical History Surgical History History of appendectomy History of cardiac catheterization 03/13/2020, 03/20/2021, 09/11/2021 History of cholecystectomy History of coronary artery stent placement History of dilation of urethra History of esophagogastroduodenoscopy (EGD) History of lumbar surgery History of partial colectomy History of tonsillectomy Status post glaucoma surgery Family History Family History Mother Diabetes mellitus Patient's mother is Father Patient's father is Sibling Breast cancer Cancer Son Thyroid cancer Melanoma Social History Social History Social History: Surrogate medical decision maker: Madan Wellington (son) or Stefanie Wellington (spouse). Code status: Full code. Smoking packs per day: 0.5 Smoking cigarettes per day: 10.0 Years smoked: 1 Smoking pack-years: 0.50 Smoking status: Never smoker Tobacco type: cigarettes Second hand tobacco smoke exposure: No Smoking end date: 07/11/69 Alcohol intake: never Substance use: never Substance use type: does not use Last use: quit drinking about a year ago when started on Parkinson's med Do You Feel Safe in your Home?: Yes Lack of Transportation: No Lack of Food: Never True Current Housing: I Have Housing Concerned About Future Housing: No Difficulty Paying Gas/Electric Bills: No Difficulty Paying for Meds: No Currently Unemployed: No Education: Bachelor's Degree Difficulty w/ Childcare or Family Care: No Living arrangements: with family Spiritual care concerns: No Meds Home Medications and Allergies Home Medications Medication Instructions Recorded Confirmed Type pregabalin 150 mg capsule (Lyrica) 150 mg PO HS 03/12/20 05/23/24 History carbidopa 25 mg-levodopa 100 mg 3 tablet PO QID 11/14/22 05/23/24 History tablet ascorbic acid (vitamin C) 1,000 mg 1 g PO DAILY 12/14/23 05/23/24 History tablet aspirin 81 mg tablet,delayed 81 mg PO HS 12/14/23 05/23/24 History release d-mannose 500 mg capsule 500 mg PO USEASDIRECTD 12/14/23 05/23/24 History apixaban 5 mg tablet (Eliquis) 5 mg PO BID #180 tabs 01/10/24 05/23/24 Rx duloxetine 60 mg capsule,delayed 60 mg PO QAM 03/14/24 05/23/24 History release B-complex with vitamin C 1 tablet PO DAILY 04/09/24 05/23/24 History atorvastatin 40 mg tablet 40 mg PO HS 04/09/24 05/23/24 History cetirizine 10 mg tablet 10 mg PO DAILY 04/09/24 05/23/24 History cranberry extract 500 mg tablet 500 mg PO DAILY 04/09/24 05/23/24 History diclofenac sodium 1 % topical gel 2 g topical QID 04/09/24 05/23/24 History magnesium oxide 400 mg (241.3 mg 400 mg PO DAILY 04/09/24 05/23/24 History magnesium) tablet melatonin 5 mg PO HS 04/09/24 05/23/24 History mv-folic acid 200 mcg-D3 300 1 tablet PO DAILY 04/09/24 05/23/24 History unit-K2 20 [id number]#222 tablet (Stages Men's Multi-Vitamin) tobramycin-dexamethasone 0.3 %-0.1 1 applic RIGHT EYE DAILY 04/09/24 05/23/24 History % eye ointment (TobraDex) brimonidine 0.2 %-timolol 0.5 % 1 drp EACH EYE BID 04/24/24 05/23/24 History eye drops lisinopril 10 mg tablet 10 mg PO DAILY 04/24/24 05/23/24 History quetiapine 50 mg tablet (Seroquel) 50 mg PO BID #60 tabs 05/18/24 05/23/24 Rx fluticasone fur. 100 mcg-umeclid 1 inh inhalation DAILY 05/23/24 05/23/24 History 62.5 mcg-vilant 25 mcg inhalat.powder (Trelegy Ellipta) oxybutynin chloride 5 mg 10 mg PO DAILY 05/23/24 05/23/24 History tablet,extended release 24 hr pantoprazole 20 mg tablet,delayed 40 mg PO QAM 05/23/24 05/23/24 History release (Protonix) Allergies Allergy/AdvReac Type Severity Reaction Status Date / Time tramadol Allergy Mild SEIZURE Verified 05/11/24 11:15 Beta-Blockers AdvReac Anxiety Verified 05/11/24 11:15 (Beta-Adrenergic Bloc ticagrelor [From Brilinta] AdvReac Dyspnea / Verified 05/11/24 11:15 SOB Vital Signs Vital Signs - 24 hr 05/23/24 12:06 05/23/24 12:25 05/23/24 12:36 Temperature 98.4 F Pulse Rate 90 88 Respiratory Rate 18 Blood Pressure 125/83 Pulse Oximetry 89 L 93 Oxygen Delivery Room Air Nasal Cannula Oxygen Flow Rate 3 05/23/24 13:30 05/23/24 13:31 05/23/24 14:22 Temperature Pulse Rate 85 Respiratory Rate 17 Blood Pressure 126/70 Pulse Oximetry 88 L 94 95 Oxygen Delivery Nasal Cannula Nasal Cannula Oxygen Flow Rate 3 5 05/23/24 16:17 05/23/24 17:34 05/23/24 18:41 Temperature Pulse Rate 80 81 79 Respiratory Rate 16 14 15 Blood Pressure 124/71 137/73 117/71 Pulse Oximetry 96 96 94 Oxygen Delivery Oxygen Flow Rate Exam Narrative: A/Ox4, faint murmur. Const: General: comfortable and no acute distress Other: , male, nontoxic appearance HENMT: Face/Nose/Sinus: Normal nares present Mouth: Yes moist mucous membranes Eyes: General: appearance normal, both eyes and all related structures Sclera: sclerae normal Pupils: Equal, round and reactive pupils present EOM: EOMs intact bilaterally Resp: Effort & Inspection: normal respiratory effort Auscultation: clear to auscultation bilaterally Cardio: Rate: regular rate Rhythm: regular rhythm Other: Faint murmur. GI: Other: Abdomen firm to soft, nondistended, nontender. Skin: General skin exam: normal color and no rashes or lesions noted Wounds: no wounds Neuro: Speech: normal speech Sensory Exam: normal sensation Other: Generalized weakness, A&O x4 Extrem: General: normal to inspection Psych: Mental Status: mental status grossly normal Affect: normal affect Other: Good insight and judgment, pleasant H&P: Results Labs Labs: Short CBC 05/23/24 Range/Units 12:33 WBC 7.7 (4.5-10.0) K/mm3 Hgb 11.7 L (14.0-18.0) g/dL Hct 36.5 L (42.0-52.0) % Plt Count 265 D (150-375) k/mm3 [facility] 05/23/24 12:33 Sodium 133 L Potassium 4.4 Chloride 96 L Carbon Dioxide 32 H BUN 20 Creatinine 0.50 L Glucose 122 H Calcium 8.9 Liver Function 05/23/24 Range/Units 12:33 Total Bilirubin 0.7 (0.2-1.3) mg/dL AST 25 (17-59) U/L ALT 6 (6-50) U/L Alkaline Phosphatase 76 (38-126) U/L Albumin 3.6 (3.5-5.1) g/dL Urine 05/23/24 Range/Units 17:25 Urine Color Dark yellow (Yellow) Urine Appearance Clear (Clear) Urine pH 6.5 (5.0-9.0) Ur Specific [place] 1.017 (1.001-1.035) Urine Protein Negative (Negative) mg/dL Urine Glucose (UA) Negative (Negative) mg/dL Assessment and Plan Assessment and plan (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 now on room air. - viral PCR negative - CXR No acute cardiopulmonary pathology. - Chest CTA No pulmonary embolism No aortic dissection. Extremely low lung volumes secondary to elevation of the right hemidiaphragm, unchanged from prior studies. - duoneb [place], continue home inhalers (2) Parkinson's disease with dyskinesia and fluctuating manifestations: Code(s): G20.B2 - Parkinson's disease with dyskinesia, with fluctuations Status: Acute Assessment and Plan: - weakness may be manifestation/progression of Parkinson's - continue carbidopa-levodopa - fall precautions - PT/OT eval and treat - carte coordination consult - feels she cannot safely care for him at home, care coordination consulted (3) Essential (primary) hypertension: Code(s): I10 - Essential (primary) hypertension Status: Chronic Assessment and Plan: - chronic, currently 117/71 - continue home medications: Lisinopril 10 mg daily - monitor Plan Diet: heart healthy GI Prophylaxis: not currently indicated DVT Prophylaxis: continue Eliquis Lines: peripheral Code Status: full code Quality VTE Prophylaxis VTE prophylaxis: pharmacologic ordered Hospitalist MIPS Advance Care Plan I have confirmed that the patient's Advanced Care Plan is present, code status is documented, or surrogate decision maker is listed in patient medical record.: Yes Medication Reconciliation I have utilized all available resources to obtain, update and review the patients current medications (includes all prescriptions, OTC, herbals, cannabis, and nutritional supplements).: Yes
[2024-05-23] MEDS: ALBUTEROL SULFATE NEB 2.5 MG/3 ML INH INHALATION (20:36)
--- NOTE | 2024-05-23 20:55 | ADMGEN ---
This patient, Joe Wellington, was admitted to [facility] Surg Room 305-02. Patient/family oriented to hospital policies and general routines including ID bracelet, bed and alarms, visiting hours, pain management, procedures, bathroom and other care routines, personal items, smoking policy, room service/diet, and visiting hours. Information on how to activate the Rapid Response Team has been discussed. Patient/Family are encouraged to report perceived risks to care and to ask questions if they do not understand what they are told or what they should do.
[2024-05-24] VITALS (14 sets, daily range): BP systolic 105–156; BP diastolic 45–93; PULSE 60–89; RESP 16–20; TEMP 36.1–36.4; O2SAT 87–98; BMI 10.0
[2024-05-24] MEDS: [UNRECOGNIZED DRUG - REMARK] 1 EACH XX (02:41)
[2024-05-24] MEDS: ALBUTEROL SULFATE NEB 2.5 MG/3 ML INH INHALATION ×4 (03:02→19:59)
[2024-05-24] MEDS: FLUTICASONE/UMECLIDIN/VILANTER 100-62.5-25 MCG ELLIPTA 1 PUFF INHALATION (07:10)
--- NOTE | 2024-05-24 07:16 | PM.IMPN ---
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 Was weaned to room air overnight but then desatted to 87%. Now on 3 L. - viral PCR negative - CXR No acute cardiopulmonary pathology. - Chest CTA No pulmonary embolism No aortic dissection. Extremely low lung volumes secondary to elevation of the right hemidiaphragm, unchanged from prior studies. - duoneb [place], continue home inhalers -he does have right lower lobe crackles and bilateral lower extremity pitting edema. He takes Lasix as needed at home for swelling. Will diurese with 1 time of IV Lasix 40 mg a day. -wean oxygen to room air -ApneaLink ordered (2) Hyponatremia: Code(s): E87.1 - Hypo-osmolality and hyponatremia Status: Acute Assessment and Plan: Sodium slightly decreased at 133 on admission. Monitor fluctuation. Can contribute to weakness but not usually in such a mild drop. (3) Parkinson's disease with dyskinesia and fluctuating manifestations: Code(s): G20.B2 - Parkinson's disease with dyskinesia, with fluctuations Status: Acute Assessment and Plan: - weakness may be manifestation/progression of Parkinson's - continue carbidopa-levodopa - fall precautions - PT/OT eval and treat - care coordination consult - feels she cannot safely care for him at home, care coordination consulted (4) Essential (primary) hypertension: Code(s): I10 - Essential (primary) hypertension Status: Chronic Assessment and Plan: - chronic, currently 117/71 - continue home medications: Lisinopril 10 mg daily - monitor blood pressures (5) Urinary retention: Code(s): R33.9 - Retention of urine, unspecified Status: Acute Assessment and Plan: Patient required intermittent straight catheterization in the emergency room and again this morning. Straight cath yielded 750 mils. Patient did not have the urge to void and was able to empty his bladder independently. Patient is on oxybutynin for overactive bladder. Urinary retention can occur with this medication. Hold for now. Patient is also constipated so this could be contributing. Bowel regimen ordered. Added flomax Plan Diet: heart healthy GI Prophylaxis: not currently indicated DVT Prophylaxis: continue Eliquis Lines: peripheral Code Status: full code Subjective Date/time seen: 05/24/24 07:16 Interval history: Met with patient and his at the bedside. He says he feels fine other than weakness. His has concerns about his hands being swollen. He remains on 3 L NC. He denies headache, dizziness, runny nose, shortness of breath, chest pain, abdominal pain, nausea, or vomiting. He reports his last bowel movement was 2 days ago. He has issues with constipation because of the medications he takes as well as his Parkinson's. He reports that nursing had a straight cath him this morning as he was retaining 750 mils of urine. He did not have the urge to void and was unable to empty his bladder independently. He takes oxybutynin as needed for overactive bladder. Review of Systems Review of Systems: All systems reviewed & are unremarkable except as noted in HPI and below Exam Narrative: General: appears comfortable, in no acute distress, on 3 L NC Respiratory: breathing is unlabored with even chest rise/fall, lung sounds are diminished with crackles to right lower lobe. Cardiovascular: Rate and rhythm regular, normal s1s2, no murmur Abdomen: Soft, round, non-tender, active bowel sounds Extremities: No cyanosis, +2-3 pitting edema to bilateral lower extremities, no clubbing. Pulses 2/2 Neuro: A&O x 4 Skin: Warm, dry, intact Objective Data Vital Signs Vital Signs: Vital Signs - 24 hr 05/23/24 12:06 05/23/24 12:25 05/23/24 12:36 Temperature 98.4 F Pulse Rate 90 88 Respiratory Rate 18 Blood Pressure 125/83 Pulse Oximetry 89 L 93 Oxygen Delivery Room Air Nasal Cannula Oxygen Flow Rate 3 05/23/24 13:30 05/23/24 13:31 05/23/24 14:22 Temperature Pulse Rate 85 Respiratory Rate 17 Blood Pressure 126/70 Pulse Oximetry 88 L 94 95 Oxygen Delivery Nasal Cannula Nasal Cannula Oxygen Flow Rate 3 5 05/23/24 16:17 05/23/24 17:34 05/23/24 18:41 Temperature Pulse Rate 80 81 79 Respiratory Rate 16 14 15 Blood Pressure 124/71 137/73 117/71 Pulse Oximetry 96 96 94 Oxygen Delivery Oxygen Flow Rate 05/23/24 19:39 05/23/24 20:34 05/23/24 20:36 Temperature 97.6 F Pulse Rate 74 72 80 Respiratory Rate 15 18 18 Blood Pressure 143/81 H 131/85 Pulse Oximetry 90 Oxygen Delivery Oxygen Flow Rate 05/23/24 20:40 05/23/24 20:43 05/24/24 03:03 Temperature Pulse Rate 89 76 Respiratory Rate 20 18 Blood Pressure Pulse Oximetry 91 Oxygen Delivery Room Air Oxygen Flow Rate 05/24/24 03:11 05/24/24 05:48 Temperature 97.5 F L Pulse Rate 74 73 Respiratory Rate 18 16 Blood Pressure 120/72 Pulse Oximetry 91 Oxygen Delivery Oxygen Flow Rate Intake/Output Intake/Output: Intake & Output 05/21/24 05/22/24 05/23/24 05/24/24 23:59 23:59 23:59 23:59 Intake Total 600 Output Total 950 Balance -350 Meds/Results Medications: Active Medications Generic Name Dose Route Start Last Admin Trade Name Freq PRN Reason Stop Dose Admin Albuterol 2.5 mg 05/23/24 20:00 05/24/24 07:08 Albuterol Sulfate Neb 2.5 Mg/3 Ml Inh INHALATION 2.5 mg Q6HRT [facility] Administration Apixaban 5 mg 05/24/24 09:00 Apixaban 5 Mg Tablet PO Q12HR [facility] Ascorbic Acid 1,000 mg 05/24/24 09:00 Ascorbic Acid 500 Mg Tablet PO DAILY [facility] Aspirin 81 mg 05/24/24 21:00 Aspirin 81 Mg Enteric Tablet PO HS [facility] Atorvastatin Calcium 40 mg 05/24/24 21:00 Atorvastatin 40 Mg Tablet PO HS [facility] Brimonidine Tartrate 1 drop 05/24/24 09:00 Brimonidine Tartrate 0.2% Op Soln 5 Ml Btl EACH EYE Q12HR [facility] Carbidopa/Levodopa 3 tablet 05/24/24 08:00 Carbidopa/Levodopa 25/100 Mg Tablet PO DAILY@0800,1200,1600,2000 [facility] Diclofenac Sodium 1 applic 05/24/24 09:00 Diclofenac Sodium 1% 100 Gm Gel (*Bkc) TOPICAL QID [facility] Duloxetine HCl 60 mg 05/24/24 09:00 Duloxetine Hcl 60 Mg Capsule.Dr BRAGA QAM [facility] Fluticasone/Umeclidinium/Vilanterol 1 puff 05/24/24 08:00 05/24/24 07:10 Fluticasone/Umeclidin/Vilanter 100-62.5-25 Mcg Ellipta INHALATION 1 puff DAILYRT [facility] Administration Folic Acid 0.4 mg 05/24/24 09:00 Folic Acid 0.4 Mg Tablet PO DAILY [facility] Lisinopril 10 mg 05/24/24 09:00 Lisinopril 10 Mg Tablet PO DAILY [facility] Loratadine 10 mg 05/24/24 09:00 Loratadine 10 Mg Tablet PO QAM [facility] Magnesium Oxide 400 mg 05/24/24 09:00 Magnesium Oxide 400 Mg Tablet PO DAILY [facility] Melatonin 5 mg 05/24/24 21:00 Melatonin 5 Mg Tablet PO HS [facility] Miscellaneous Information 1 each 05/24/24 00:01 Is Bringing In Mannose, Please Send To Pharmacy Once Recieved XX 06/23/24 00:00 CLARIFY [facility] Multivitamins/Minerals 1 tab 05/24/24 09:00 Multivitamins /C Lutein (Centrum Silver) Tablet *Bkc PO QAM [facility] Non-Formulary Medication 500 mg 05/24/24 09:00 Cranberry Extract PO 06/23/24 08:59 DAILY [facility] Non-Formulary Medication 500 mg 05/24/24 00:30 D-Mannose PO 06/23/24 00:29 USEASDIRECTD [facility] Oxybutynin Chloride 5 mg 05/24/24 09:00 Oxybutynin Chloride Xl 5 Mg Tab.Er.24 PO DAILY [facility] Pantoprazole Sodium 40 mg 05/24/24 09:00 Pantoprazole 40 Mg Tablet PO QAM [facility] Pregabalin 150 mg 05/24/24 21:00 Pregabalin (*Crx) 75 Mg Capsule PO HS [facility] Quetiapine Fumarate 50 mg 05/24/24 09:00 Quetiapine Fumarate 25 Mg Tablet PO Q12HR [facility] Timolol Maleate 1 drop 05/24/24 09:00 Timolol Maleate 0.5% Op Soln 5 Ml Bottle EACH EYE Q12HR [facility] Tobramycin/Dexamethasone 1 applic 05/24/24 09:00 Tobramycin/Dexamethasone Op Oint 3.5 Gm Tube RIGHT EYE DAILY [facility] Vitamin B Complex/Vitamin C 1 each 05/24/24 09:00 Vitamin B Complex/Vit C Capsule PO DAILY [facility] Radiology Results: ITS Impressions Chest X-Ray 05/23/24 13:06 IMPRESSION: No acute cardiopulmonary pathology. Chest CTA 05/23/24 18:49 IMPRESSION: No pulmonary embolism No aortic dissection. Extremely low lung volumes secondary to elevation of the right hemidiaphragm, unchanged from prior studies. Labs Labs: Laboratory Results - last 24 hr 05/23/24 05/23/24 05/23/24 12:33 12:33 14:56 WBC 7.7 RBC 4.39 L Hgb 11.7 L Hct 36.5 L MCV 83.1 MCH 26.7 MCHC 32.1 RDW 14.8 H Plt Count 265 D MPV 9.3 Immature Gran % (Auto) 0.4 Neut % (Auto) 77.4 H Lymph % (Auto) 10.9 L [place] % (Auto) 9.2 H Eos % (Auto) 1.7 Baso % (Auto) 0.4 Lymph # (Auto) 0.84 L [place] # (Auto) 0.7 H Eos # (Auto) 0.1 Baso # (Auto) 0.0 Abs Immat Gran (auto) 0.03 Absolute Neuts (auto) 6.0 Absolute Nucleated RBC 0.000 Nucleated RBC % 0.0 Sodium 133 L Potassium 4.4 Chloride 96 L Carbon Dioxide 32 H Anion Gap 5 BUN 20 Creatinine 0.50 L Estim Creat Clear Calc 122 Estimated GFR > 60 Glucose 122 H Calcium 8.9 Total Bilirubin 0.7 AST 25 ALT 6 Alkaline Phosphatase 76 NT-Pro-B Natriuret Pep 100 Cancelled Total Protein 7.0 Albumin 3.6 Urine Color Urine Appearance Urine pH Ur Specific [place] Urine Protein Urine Glucose (UA) Urine Ketones Ur Blood (Man) Urine Nitrate Urine Bilirubin Urine Urobilinogen Leukocyte Esterase Rfl Influenza A (RT-PCR) Negative Influenza B (RT-PCR) Negative RSV (RT-PCR) Negative SARS-CoV-2 RNA (RT-PCR) Negative 05/23/24 17:25 WBC RBC Hgb Hct MCV MCH MCHC RDW Plt Count MPV Immature Gran % (Auto) Neut % (Auto) Lymph % (Auto) [place] % (Auto) Eos % (Auto) Baso % (Auto) Lymph # (Auto) [place] # (Auto) Eos # (Auto) Baso # (Auto) Abs Immat Gran (auto) Absolute Neuts (auto) Absolute Nucleated RBC Nucleated RBC % Sodium Potassium Chloride Carbon Dioxide Anion Gap BUN Creatinine Estim Creat Clear Calc Estimated GFR Glucose Calcium Total Bilirubin AST ALT Alkaline Phosphatase NT-Pro-B Natriuret Pep Total Protein Albumin Urine Color Dark yellow Urine Appearance Clear Urine pH 6.5 Ur Specific [place] 1.017 Urine Protein Negative Urine Glucose (UA) Negative Urine Ketones Negative Ur Blood (Man) Negative Urine Nitrate Negative Urine Bilirubin Negative Urine Urobilinogen 1.0 Leukocyte Esterase Rfl Negative Influenza A (RT-PCR) Influenza B (RT-PCR) RSV (RT-PCR) SARS-CoV-2 RNA (RT-PCR) Quality VTE Prophylaxis VTE prophylaxis: pharmacologic ordered
[2024-05-24 08:04] LABS: Basophils Percent Auto 0.5 % (0.2-1.2); Eosinophils Absolute Auto 0.2 K/mm3 (0-0.3); Eosinophils Percent Auto 4.2 % (0-4.4); Hematocrit 36.6 % (42.0-52.0); Hemoglobin 11.6 g/dL (14.0-18.0); Immature Granulocyte Absolute 0.01 K/mm3 (0.00-0.031); Immature Granulocyte Percent A 0.2 % (0-0.5); Lymphocytes Absolute Auto 1.43 K/mm3 (0.9-3.2); Lymphocytes Percent Auto 25.3 % (18.3-44.2); Mean Corpuscular HGB Conc 31.7 g/dl (32-36); Mean Corpuscular Hemoglobin 26.7 pg (26-34); Mean Corpuscular Volume 84.3 fl (80-100); Mean Platelet Volume 8.9 fl (7.4-10.4); Monocytes Absolute Auto 0.5 K/mm3 (0.1-0.6); Monocytes Percent Auto 9.4 % (2.6-8.5); Neutrophils Absolute Auto 3.4 K/mm3 (1.3-6.7); Neutrophils Percent Auto 60.4 % (45.5-73.1); Platelet Count Result 240 k/mm3 (150-375); Red Blood Count 4.34 M/mm3 (4.6-6.20); Red Cell Distribution Width 14.9 % (11.5-14.5); White Blood Count 5.7 K/mm3 (4.5-10.0)
[2024-05-24 08:16] LABS: Alanine Aminotransferase 7 U/L (6-50); Albumin Level 3.5 g/dL (3.5-5.1); Alkaline Phosphatase 84 U/L (38-126); Anion Gap 4 mmol/L (4-12); Aspartate Amino Transferase 21 U/L (17-59); Bilirubin,Total 0.8 mg/dL (0.2-1.3); Blood Urea Nitrogen 15 mg/dL (9-20); Carbon Dioxide 34 mmol/L (22-30); Chloride 96 mmol/L (98-107); Estimated CRCL calculation 103 ml/min; Estimated Glomerular Filt Rate > 60; Glucose 109 mg/dL (65-110); Magnesium 2.1 mg/dL (1.6-2.3); Potassium 4.1 mmol/L (3.4-5.0); Sodium 134 mmol/L (137-145)
[2024-05-24] MEDS: CARBIDOPA/LEVODOPA 25/100 MG TABLET 3 TABLET PO ×4 (09:09→20:55)
[2024-05-24] MEDS: MULTIVITAMINS /C LUTEIN (CENTRUM SILVER) TABLET *BKC 1 TAB PO (09:09)
[2024-05-24] MEDS: DICLOFENAC SODIUM 1% 100 GM GEL (*BKC) 1 APPLIC TOPICAL ×4 (09:09→22:09)
[2024-05-24] MEDS: QUEtiapine FUMARATE 25 MG TABLET 50 MG PO ×2 (09:10→20:53)
[2024-05-24] MEDS: MAGNESIUM OXIDE 400 MG TABLET PO (09:10)
[2024-05-24] MEDS: ASCORBIC ACID 500 MG TABLET 1000 MG PO (09:10)
[2024-05-24] MEDS: APIXABAN 5 MG TABLET PO ×2 (09:10→20:53)
[2024-05-24] MEDS: PANTOPRAZOLE 40 MG TABLET PO (09:10)
[2024-05-24] MEDS: oxyBUTYnin CHLORIDE XL 5 MG TAB.ER.24 PO (09:10)
[2024-05-24] MEDS: LORATADINE 10 MG TABLET PO (09:10)
[2024-05-24] MEDS: DULoxetine HCL 60 MG CAPSULE.DR PO (09:10)
[2024-05-24] MEDS: FOLIC ACID 0.4 MG TABLET PO (09:10)
[2024-05-24] MEDS: lisinopriL 10 MG TABLET PO (09:10)
[2024-05-24] MEDS: TIMOLOL MALEATE 0.5% OP SOLN 5 ML BOTTLE 1 DROP EACH EYE ×2 (09:13→20:57)
[2024-05-24] MEDS: TOBRAMYCIN RIGHT EYE (09:13)
[2024-05-24] MEDS: VITAMIN B COMPLEX/VIT C CAPSULE 1 EACH PO (09:13)
[2024-05-24] MEDS: BRIMONIDINE TARTRATE 0.2% OP SOLN 5 ML BTL 1 DROP EACH EYE ×2 (09:13→20:57)
[2024-05-24] MEDS: [UNRECOGNIZED DRUG - OTHER] RIGHT EYE (09:13)
[2024-05-24] MEDS: FUROSEMIDE INJ 40 MG/4 ML VIAL IV PUSH (12:25)
[2024-05-24] MEDS: polyethylene glycoL 3350 17 GM POWD.PACK PO (12:25)
[2024-05-24 13:04] LABS: Iron 20 ug/dL (49-181)
[2024-05-24 13:20] LABS: Percent Iron Saturation 9 % (20-50)
[2024-05-24] MEDS: TAMSULOSIN HCL 0.4 MG CAPSULE PO (13:41)
[2024-05-24] MEDS: IRON SUCROSE COMPLEX 200 MG, IRON SUCROSE COMPLEX 100 MG in SODIUM CHLORIDE 0.9% IV 250 ML 176.67 MG IVPB (15:10)
[2024-05-24] MEDS: PREGABALIN (*CRX) 75 MG CAPSULE 150 MG PO (20:52)
[2024-05-24] MEDS: SENNA/DOCUSATE SODIUM TABLET 1 TAB PO (20:53)
[2024-05-24] MEDS: ATORVASTATIN 40 MG TABLET PO (20:53)
[2024-05-24] MEDS: ASPIRIN 81 MG ENTERIC TABLET PO (20:53)
[2024-05-24] MEDS: MELATONIN 5 MG TABLET PO (20:54)
[2024-05-25] VITALS (10 sets, daily range): BP systolic 128–159; BP diastolic 69–82; PULSE 63–88; RESP 13–94; TEMP 35.7–37.1; O2SAT 83–95; BMI 10.0
--- NOTE | 2024-05-25 | ECHO_ITS ---
Patient Info Name: Joe Wellington Age: 74 years : 1950 Gender: Male Ht: 74 in Wt: 219 lbs BSA: 2.29 m2 HR: 76 bpm BP: 128 / 82 mmHg Heart Rhythm: Sinus Rhythm Technical Quality: Good Exam Date: 05/25/2024 3:40 PM Exam Location: Echo Lab Patient Status: Inpatient Admit Date: 05/25/2024 Staff Ordering Physician: Miladis Allen APRN Investor: Caro Baltazar RDCS Attending Provider: Miladis Allen APRN Referring Physician: Alejandro ANDERSON; Exam Type: CA echo doppler color flow Study Info Indications - hypoxia, edema Complete two-dimensional, color flow and Doppler transthoracic echocardiogram is performed. Summary 1. Complete two-dimensional, color flow and Doppler transthoracic echocardiogram is performed. 2. Left ventricular systolic function is normal, estimated at 60-65%. 3. There is mildly increased left ventricular wall thickness. 4. The left ventricular diastolic function is indeterminate. 5. Left atrial chamber dimension is mildly enlarged. 6. There is trace mitral valve regurgitation. 7. There is trace tricuspid valve regurgitation. 8. Mild pulmonary hypertension, estimated pulmonary arterial systolic pressure is 42 mmHg. Left Ventricle Left ventricular chamber dimension is normal. Left ventricular systolic function is normal, estimated at 60-65%. There is mildly increased left ventricular wall thickness. Left ventricular septal wall motion is normal. The left ventricular diastolic function is indeterminate. Right Ventricle Right ventricular chamber dimension is normal. Right ventricular systolic function is normal. Left Atria Left atrial chamber dimension is mildly enlarged. Right Atria Right atrial chamber dimension is normal. Aortic Valve The aortic valve is trileaflet. There is no aortic valve sclerosis. There is no aortic valve stenosis. There is no aortic valve regurgitation. Pulmonic Valve The pulmonic valve is normal. There is no pulmonic valve stenosis. There is no pulmonic regurgitation. Mitral Valve The mitral valve has normal leaflets. There is no mitral valve stenosis. There is trace mitral valve regurgitation. Tricuspid Valve The tricuspid valve leaflets are normal. There is no significant tricuspid valve stenosis. There is trace tricuspid valve regurgitation. Mild pulmonary hypertension, estimated pulmonary arterial systolic pressure is 42 mmHg. Pericardium/Pleural The pericardium appears normal. There is no pericardial effusion. Inferior Vena Cava Not well visualized inferior vena cava with >50% collapse upon inspiration consistent with Empty right atrial pressure, 10 mmHg. Aorta The aortic root size at the sinus of Valsalva is normal. The prox ascending aorta size is normal. Left Ventricular Outflow Tract Name Value Normal LVOT 2D LVOT Diameter 2.0 cm LVOT Doppler LVOT Peak Gradient 4 mmHg LVOT Mean Gradient 2 mmHg LVOT VTI 20 cm LVOT VTI/AV VTI Ratio 0.7 LVOT Stroke Volume 64 ml LVOT CO 4.9 l/min LVOT CI 2.1 l/min/m2 Mitral Valve Name Value Normal MV Doppler MV Decel [place] 492 cm/s2 MV PHT 54 ms MV Area (PHT) 4.1 cm2 4.0-5.0 MV Regurgitation Doppler MR Peak Gradient 45 mmHg MV Diastolic Function MV E Peak Velocity 91 cm/s MV A Peak Velocity 90 cm/s MV E/A 1.0 MV Decel Time 185 ms MV Annular TDI MV E/e' (Septal) 9.8 <=8.0 MV E/e' (Lateral) 6.3 <=8.0 MV E/e' (Average) 8.1 Tricuspid Valve Name Value Normal TV Regurgitation Doppler TR Peak Velocity 282 cm/s TR Peak Gradient 32 mmHg Estimated PAP/RSVP RA Pressure 10 mmHg <=5 PA Systolic Pressure 42 mmHg <36 RV Systolic Pressure 42 mmHg <36 Aortic Valve Name Value Normal AV Doppler AV Peak Velocity 130 cm/s AV Peak Gradient 7 mmHg AV Mean Gradient 4 mmHg AV VTI 29 cm AV Area (Cont Eq VTI) 2.2 cm2 >=3.0 AV Area (Cont Eq Ermias) 2.3 cm2 AV Regurgitation 2D LVOT Area 3.1 cm2 Ventricles Name Value Normal LV Dimensions 2D/MM IVS Diastolic Thickness (2D) 1.2 cm 0.6-1.0 LVID Diastole (2D) 4.6 cm 4.2-5.8 LVIW Diastolic Thickness (2D) 1.2 cm 0.6-1.0 LVID Systole (2D) 3.0 cm 2.5-4.0 LVOT Diameter 2.0 cm LV Mass (2D Cubed) 202.77 g 88.00-224.00 LV Mass Index (2D Cubed) 88 g/m2 49-115 Relative Wall Thickness (2D) 0.51 LV Fractional Shortening/Ejection Fraction 2D/MM LV Fractional Shortening (2D) 36 % 25-43 LV EF (2D Teicholz) 65 % 52-72 LV Diastolic Volume (4C MOD) 120 ml LV EF (4C MOD) 68 % LV Diastolic Volume (2C MOD) 136 ml LV EF (2C MOD) 65 % LV Diastolic Volume (BP MOD) 126 ml 62-150 LV Diastolic Volume Index (BP MOD) 55 ml/m2 34-74 LV Systolic Volume (BP MOD) 43 ml 21-61 LV Systolic Volume Index (BP MOD) 19 ml/m2 11-31 LV EF (BP MOD) 66 % 52-72 LV Diastolic Length (4C) 9.2 cm LV Systolic Length (4C) 7.5 cm LV Stroke Volume (4C MOD) 82 ml Atria Name Value Normal LA Dimensions LA Volume (4C A-L) 47 ml LA Volume (BP A-L) 55 ml RA Dimensions RA Area (4C) 16.3 cm2 <=18.0 Report Signatures
--- NOTE | 2024-05-25 04:15 | PCRCNOTE ---
0200 neb tx was omitted due to apnea study
[2024-05-25] MEDS: IRON SUCROSE COMPLEX 200 MG, IRON SUCROSE COMPLEX 100 MG in SODIUM CHLORIDE 0.9% IV 250 ML 176.67 MG IVPB (05:50)
[2024-05-25] MEDS: ALBUTEROL SULFATE NEB 2.5 MG/3 ML INH INHALATION ×2 (07:17→13:21)
[2024-05-25] MEDS: FLUTICASONE/UMECLIDIN/VILANTER 100-62.5-25 MCG ELLIPTA 1 PUFF INHALATION (07:18)
[2024-05-25] MEDS: polyethylene glycoL 3350 17 GM POWD.PACK PO (08:45)
[2024-05-25] MEDS: lisinopriL 10 MG TABLET PO (08:45)
[2024-05-25] MEDS: APIXABAN 5 MG TABLET PO ×2 (08:45→21:33)
[2024-05-25] MEDS: MULTIVITAMINS /C LUTEIN (CENTRUM SILVER) TABLET *BKC 1 TAB PO (08:45)
[2024-05-25] MEDS: PANTOPRAZOLE 40 MG TABLET PO (08:45)
[2024-05-25] MEDS: DULoxetine HCL 60 MG CAPSULE.DR PO (08:45)
[2024-05-25] MEDS: ASCORBIC ACID 500 MG TABLET 1000 MG PO (08:45)
[2024-05-25] MEDS: FOLIC ACID 0.4 MG TABLET PO (08:45)
[2024-05-25] MEDS: QUEtiapine FUMARATE 25 MG TABLET 50 MG PO ×2 (08:45→21:33)
[2024-05-25] MEDS: LORATADINE 10 MG TABLET PO (08:45)
[2024-05-25] MEDS: MAGNESIUM OXIDE 400 MG TABLET PO (08:45)
[2024-05-25] MEDS: VITAMIN B COMPLEX/VIT C CAPSULE 1 EACH PO (08:45)
[2024-05-25] MEDS: CARBIDOPA/LEVODOPA 25/100 MG TABLET 3 TABLET PO ×4 (08:47→21:39)
[2024-05-25 10:21] LABS: Basophils Percent Auto 0.5 % (0.2-1.2); Eosinophils Absolute Auto 0.2 K/mm3 (0-0.3); Eosinophils Percent Auto 2.9 % (0-4.4); Hematocrit 38.1 % (42.0-52.0); Hemoglobin 11.7 g/dL (14.0-18.0); Immature Granulocyte Absolute 0.01 K/mm3 (0.00-0.031); Immature Granulocyte Percent A 0.2 % (0-0.5); Lymphocytes Absolute Auto 0.74 K/mm3 (0.9-3.2); Lymphocytes Percent Auto 12.8 % (18.3-44.2); Mean Corpuscular HGB Conc 30.7 g/dl (32-36); Mean Corpuscular Hemoglobin 26.3 pg (26-34); Mean Corpuscular Volume 85.6 fl (80-100); Mean Platelet Volume 9.1 fl (7.4-10.4); Monocytes Absolute Auto 0.4 K/mm3 (0.1-0.6); Monocytes Percent Auto 7.4 % (2.6-8.5); Neutrophils Absolute Auto 4.4 K/mm3 (1.3-6.7); Neutrophils Percent Auto 76.2 % (45.5-73.1); Platelet Count Result 271 k/mm3 (150-375); Red Blood Count 4.45 M/mm3 (4.6-6.20); Red Cell Distribution Width 14.8 % (11.5-14.5); White Blood Count 5.8 K/mm3 (4.5-10.0)
[2024-05-25 10:41] LABS: Alanine Aminotransferase 7 U/L (6-50); Albumin Level 3.6 g/dL (3.5-5.1); Alkaline Phosphatase 82 U/L (38-126); Anion Gap 7 mmol/L (4-12); Aspartate Amino Transferase 24 U/L (17-59); Bilirubin,Total 0.9 mg/dL (0.2-1.3); Blood Urea Nitrogen 17 mg/dL (9-20); Carbon Dioxide 30 mmol/L (22-30); Chloride 97 mmol/L (98-107); Estimated CRCL calculation 103 ml/min; Estimated Glomerular Filt Rate > 60; Glucose 149 mg/dL (65-110); Potassium 4.1 mmol/L (3.4-5.0); Sodium 134 mmol/L (137-145)
--- NOTE | 2024-05-25 11:15 | PHAR ---
The patient's home med of D-Mannose 500mg was received in pharmacy. The capsules have no markings but the med is in a bottle labeled D-Mannose 500mg.
[2024-05-25 12:32] LABS: Alveolar/Arterial O2 Gradient 165.5 mmHg; Base Excess ABG 4.9 mEq/l (+/-2.0); Fractional Inspired Oxygen 32 %; HCO3 ABG 30.1 mEq/l (22.0-26.0); Oxygen Saturation ABG 93.5 % (95.0-100.0); Oxyhemoglobin 92.6 % THb (90.0-100.0); PCO2 ABG 46.8 mmHg (35.0-45.0); PO2 ABG 66.8 mmHg (80.0-100.0); PO2 FiO2 Ratio Arterial Blood 2.09 %; Total Hemoglobin 12.3 g/dL (12.0-18.0); pH ABG 7.426 (7.350-7.450)
[2024-05-25 12:33] LABS: Device NASAL CANNULA; Modified Allen's Test Pass; Site Drawn RIGHT RADIAL
[2024-05-25] MEDS: TAMSULOSIN HCL 0.4 MG CAPSULE PO (13:29)
[2024-05-25] MEDS: FERROUS SULFATE 325 MG TABLET DR PO (13:29)
--- NOTE | 2024-05-25 13:45 | P.CONPL_ITS ---
Assessment and Plan Assessment and plan (1) Respiratory failure with hypoxia: Code(s): J96.91 - Respiratory failure, unspecified with hypoxia Status: Acute Assessment and Plan: Patient with hypoxic respiratory failure with an ABG today of 7.43/47/67 on 3 L nasal cannula. There is no evidence of chronic hypercarbic respiratory failure that would qualify him for noninvasive ventilation. Patient has a his tory of Parkinson's disease with neurogenic bladder, decreased mobility now in wheelchair for the last 3 weeks, history of silent aspiration and history of hypoxemia. He has severe restrictive lung disease on his PFTs from 05/03/2024. He has chronic elevation of the right greater than left hemidiaphragm were since 10/08/2021. 05/24/2024: Overnight oximetry on 3 L nasal cannula. Recording duration 6 hours and 35 minutes. Average saturation 92%. Low saturation 86%. Time with saturation less than or equal to 88% was 30 minutes or 8% of the monitored time. Oxygen desaturation index was 0.6. 05/25/2024: I was able to turn the patient to room air and after 20 minutes his saturations remain 95%. Of note the patient has Parkinson's with a tremor and the plethysmography tracing needs to be verified to ensure that it is inaccurate reading. Sniff test shows normal motion of the diaphragms. Etiology of patient's hypoxemic respiratory failure include: atelectasis, mucous plugging, chronic aspiration, possible reactive airway disease or COPD, bowel positioning between liver and diaphragm. I doubt recurrent pulmonary embolism, pneumonia or fluid overload. Plan: The patient intermittently requires oxygen suggesting that atelectasis and/or mucus plugging is a likely factor. The patient has been mostly bed-bound with some areas of atelectasis in the lower lobes right greater than left. Patient should continue incentive spirometry q.2 hours while awake. I will order a Cornet flutter valve as well as EzPAP treatment 3 times a day. There is no evidence of lobar collapse or mucus plugging on the CT scan. The patient has previously been evaluated for aspiration and he likely has silent aspiration and has worked with speech therapy previously. There is no evidence of chronic interstitial lung disease secondary to aspiration. The patient had a therapeutic benefit from trelegy inhaler prescribed as an outpatient. I will continue his trelegy inhaler 100. I will discontinue nebulized albuterol at this time. I will continue his Eliquis 5 q.12 for his prior history of PE. patient has a history of constipation and this is managed by hospitalists team. Since his oxygenation appears to have improved now, I will order another ApneaLink on room air tonight to determine if he still qualifies for oxygen at night. If the patient is overnight oximetry on room air demonstrates time with saturation less than or equal to 88% at less than 5 minutes he can be discharged without any supplemental oxygen at night. If her time with saturation less than or equal to 88% is greater than 5 minutes the test should be repeated on supplemental oxygen and repeat overnight oximetry should be performed to verify that time with saturation less than or equal to 88% becomes less than 5 minutes. Inpatient pulmonary consult services will resume on 05/28/2024. Discussed with Suzanna Allen, and the on speaker phone. Will follow with you (2) Restrictive lung disease: Code(s): J98.4 - Other disorders of lung Status: Acute Assessment and Plan: Patient has a long history of small lung volume with elevated diaphragms. Chest x-rays dating back to 01/19/2013 shows small lung volumes there appeared to be an acute worsening between 03/18/2021 and 10/08/2021 with worsening elevation of the bilateral hemidiaphragms right greater than left. PFTs with severe restrictive abnormality on 05/03/2024 with no evidence of interstitial lung disease on his recent CT scans. Progressive Parkinson's can cause chest wall muscle rigidity contributing to his restrictive abnormality. Patient with constipation and his intestines are between his liver and his right hemidiaphragm. agree with continued treatment for constipation. Plan: Continued optimization of his Parkinson's treatment. Currently on carbidopa levodopa 25-100 at 3 tablets 4 times a day. Hospitalist managing constipation. Patient has a Valdez also for his neurogenic bladder. History of Present Illness History of Present Illness Consult date: 05/25/24 Chief complaint: Hypoxia, Increased weakness Narrative: 05/25/2024: This is a new pulmonary consult for hypoxia. 74-year-old with a history of Parkinson's, pulmonary embolism in December of 2023 on Xarelto, coronary artery disease status post stent, hypertension, neurogenic bladder. patient is followed in the Pulmonary Clinic and was last seen on 05/11/2024. This was a follow-up visit for from 03/20/2024. He was given a therapeutic trial of trelegy and he had improved on 05/11/2024. He had no longer coughing spells shortness of breath was better and his oxygenation had improved. Previously was admitted to [facility] and there were concerns that his Parkinson's had worsened. He had a history of neurogenic bladder, his activity had decreased, he had silent aspiration and had taken 2 antibiotics in 3 ster oid since December of 2023.. 10/07/2020 after bronchodilator 05/03/2024 newest after BD FVC 2.64L, 55% NONE 1.97 L, 43% 1.67 L, 36%, -15 FEV1 1.98L, 56% 1.568 L, 48% 1.37 L, 40%, -12 FEV1/FVC 75% 79% 82% FRQ76-73% 1.64 L, 64 % 1.49 L, 62% 1.66 L, 69%, +12 TLC 4.99, 64 % 5.46 L, 70% RV 2.14 L, 79% 2.13 L, 78% ERV RV/TLC 43% 39% DLCO 18.6, 68% 15.5, 59% DLCO/VA 4.28, 117% 5.38, 153% most recent PFTs on 05/03/2024 demonstrated a severe restrictive abnormality. On review of prior radiographs, patient has a long history of small lung volume with elevated diaphragms. Chest x-rays dating back to 01/19/2023 shows small lung volumes there appeared to be an acute worsening between 03/18/2021 and 10/08/2021 with worsening elevation of the bilateral hemidiaphragms right greater than left. I spoke to the and 2 years ago the patient was thought to have a mini- stroke but in fact it was Parkinson's disease. Ever since that time she states the patient has not been taking deep breaths. She tells me last week he was able to walk. He has been walking in rehab and around the house. She does not routinely measure his pulse oximetry. On 05/23/2024 patient presented to [facility] Emergency Room for generalized weakness and hypoxia. room air saturations were 89% and saturations were 94% on [address] angiogram of the chest showed no pulmonary embolism, no aortic dissection and low lung volumes with an elevated right hemidiaphragm. There is no evidence of interstitial lung disease, masses or pleural disease. 05/24/2024: Overnight oximetry on 3 L nasal cannula. Recording duration 6 hours and 35 minutes. Average saturation 92%. Low saturation 86%. Time with saturation less than or equal to 88% was 30 minutes or 8% of the monitored time. Oxygen desaturation index was 0.6. 05/25/2024: Patient with continued oxygen requirements of 3 L and had an ABG of 7.43/47/67 and I was consulted. currently the patient denies any shortness of breath, fever, chills, rigors, cough, phlegm production, chest tightness or hemoptysis. He tells me that his Parkinson's is getting worse and he told me he has not walked and 1-2 months but the said he had been walking up until 6 days ago. To his knowledge ease never worn oxygen previously. When I enter the room the patient was on 3 L nasal cannula saturations 94%. I turned him to room air and after 21 minutes his saturations were 95%. I watched the patient do incentive spirometry and he was pulling 0821-1452 mL. DATA: 05/25/24: EXAMINATION: XR sniff test with CXR2V DATE: 05/25/2024 14:48 INDICATION: Elevated right hemidiaphragm. TECHNIQUE: Frontal and lateral views of the chest were obtained. I performed fluoroscopy of the chest while the patient performed normal breathing, deep respiration, and forceful sniffing. The number of fluoroscopy images was 904. The fluoroscopy time was 0.5 minutes. COMPARISON: Chest CT 05/23/2024, chest 2 views 05/23/2024 FINDINGS: CHEST TWO VIEWS: The lung volumes are small. There is mild relative elevation of right hemidiaphragm. There is mild atelectasis at the lung bases. There is a small left pleural effusion. No pneumothorax. The heart size is normal. SNIFF TEST: There is normal and symmetric motion of the right and left sides of the diaphragm. IMPRESSION: 1. Small lung volumes with mild atelectasis at the lung bases. 2. Normal motion of the diaphragm. 3. Small left pleural effusion. 05/23/24: EXAMINATION: CTA chest PE protocol INDICATION: Shortness of breath, pulmonary embolus suspected clinically COMPARISON: 03/23/2024 and 11/29/2023 FINDINGS: No filling defect is identified within the main or proximal pulmonary arteries. Extremely low lung volumes are detected secondary to elevation of the right evita diaphragm (unchanged from prior). The thoracic aorta is unremarkable, without aneurysmal dilatation or dissection. The lungs demonstrate pulmonary vascular crowding, but are unremarkable. Within the upper abdomen: Significant elevation of the right hemidiaphragm. The gallbladder is only minimally distended but otherwise unremarkable. The bilateral kidneys are without calcified stones. IMPRESSION: No pulmonary embolism No aortic dissection. Extremely low lung volumes secondary to elevation of the right hemidiaphragm, unchanged from prior studies. 05/03/24: This is a pulmonary function test with pre and post-bronchodilator spirometry, plethysmography and diffusing capacity. The test was performed and results interpreted in accordance with the 2019 and 2005 ATS/ERS Task Force guidelines respectively using the Global Lung Function Initiative-2012 reference equations. Patient demonstrated good effort and cooperation. Reproducibility criteria were met. The quality of the pre bronchodilator spirometry maneuver was Grade B and post bronchodilator spiromet ry maneuver was Grade B. Of note, patient has Parkinson's disease and did all testing to the best of his ability. Findings: Spirometry: The contour the inspiratory and expiratory flow tracing are normal. The pre bronchodilator FVC is 1.97 L, 43% predicted. The pre bronchodilator FEV1 is 1.56 L, 46% predicted. The pre bronchodilator FEV1: FVC ratio 79%. The post bronchodilator FVC is 1.67 L, representing a 15% decrease. The post bronchodilator FEV1 is 1.37 L, representing a 12% decrease. The post bronchodilator FEV1: FVC ratio is 82%. Plethysmography: The total lung capacity is 5.46 L, 70% predicted. The functional residual capacity is 2.15 L, 50% predicted. The residual volume is 2.13 L, 76% predicted. Diffusing capacity: The diffusing capacity unadjusted for hemoglobin and carboxyhemoglobin is 15.5, 59% predicted. Diffusing capacity adjusted for alveolar volume is 5.38, 153% predicted. Impression: There is a severe restrictive ventilatory abnormality. The spirom etry is normal without evidence of an obstructive abnormality. There is a significant decrease in the post bronchodilator FVC and FEV1 consistent with a possible paradoxical bronchoconstriction after inhaled albuterol. Clinical correlation is recommended. The diffusing capacity unadjusted for hemoglobin and carboxyhemoglobin is moderately decreased and is increased when adjusted for alveolar volume. 03/23/2024: EXAMINATION: CT diagnostic chest wo con DATE: 03/23/2024 14:20 INDICATION: R05.3 - Chronic cough TECHNIQUE: Computed tomography (CT) of the chest was performed without intravenous contrast. Additional 3D reconstructions utilizing coronal maximum intensity projection (MIP) were performed. Automated exposure control and iterative reconstruction technique were employed. The dose-length product was 371.21 mGy-cm. COMPARISON: 11/29/2023 FINDINGS: There is elevation right hemidiaphragm with mild right basilar atelectasis. Unchanged band of discoid atelectasis/scarring in the right lower lobe. There are couple unchanged 3-4 mm nodules at the peripheral left upper lobe consistent with old granulomatous disease. No pneumonia, pulmonary edema, pleural effusion and pneumothorax. Heart size is normal. Atherosclerotic coronary artery calcifications. No pericardial effusion. Thoracic aorta is normal in caliber. No pathologically enlarged thoracic lymphadenopathy. Severe lower cervical and upper thoracic spondylosis. Moderate spondylosis in the mid to lower thoracic spine with chronic mild anterior wedging at T9. Unchanged lucent T10 hemangioma. IMPRESSION: 1. Chronic elevation the right lower lobe with atelectasis/scarring at the right lung base and right lower lobe. No acute cardiopulmonary disease. Review of Systems Constitutional: Constitutional: Reports no additional constitutional complaints Eyes: Eyes: Reports no additional eye complaints ENT: Reports system reviewed and no additional complaints, except as documented Cardiovascular: Cardiovascular: Reports no additional cardiovascular compl aints Respiratory: Respiratory: Reports no additional respiratory complaints Gastrointestinal: Gastrointestinal: Reports no additional gastrointestinal complaints Musculoskeletal: Musculoskeletal: Reports no additional musculoskeletal com plaints Neurologic: Reports system reviewed and no additional complaints, except as documented Psychiatric: Psychiatric: Reports no additional psychiatric complaints Endocrine: Endocrine: Reports no additional endocrine complaints Hematologic/Lymphatic: Hematologic/Lymphatic: Reports no additional hematolog ic/lymphatic complaints Allergic/Immunologic: Allergic/Immunologic: Reports no additional allergic/immunologic complaints [facility] Past Medical History Medical History (Updated 05/25/24 @ 14:19 by Miladis Allen APRN) Actinic keratoses Chronic pain syndrome Pain pump. Coffee ground emesis Colon cancer screening Coronary artery disease Depression Essential (primary) hypertension Fracture of lumbar spine Gait abnormality Gastritis due to nonsteroidal anti-inflammatory drug History of seizure Attributed to tramadol. Low back pain Myocardial infarction Neurogenic bladder OAB OAB (overactive bladder) Parkinson's disease Parkinson's disease with dyskinesia and fluctuating manifestations Parkinsonism Pelvic fracture Reflux esophagitis Restrictive lung disease Traumatic brain injury Urethral stricture Surgical History Surgical History History of appendectomy History of cardiac catheterization 03/13/2020, 03/20/2021, 09/11/2021 History of cholecystectomy History of coronary artery stent placement History of dilation of urethra History of esophagogastroduodenoscopy (EGD) History of lumbar surgery History of partial colectomy History of tonsillectomy Status post glaucoma surgery Family History Family History Mother Diabetes mellitus Patient's mother is Father Patient's father is Sibling Breast cancer Cancer Son Thyroid cancer Melanoma Social History Social History Social History: Surrogate medical decision maker: Madan Wellington (son) or Stefanie Wellington (spouse). Code status: Full code. Smoking packs per day: 0.5 Smoking cigarettes per day: 10.0 Years smoked: 1 Smoking pack-years: 0.50 Smoking status: Never smoker Tobacco type: cigarettes Second hand tobacco smoke exposure: No Smoking end date: 07/11/69 Alcohol intake: never Substance use: never Substance use type: does not use Last use: quit drinking about a year ago when started on Parkinson's med Do You Feel Safe in your Home?: Yes Lack of Transportation: No Lack of Food: Never True Current Housing: I Have Housing Concerned About Future Housing: No Difficulty Paying Gas/Electric Bills: No Difficulty Paying for Meds: No Currently Unemployed: No Education: Bachelor's Degree Difficulty w/ Childcare or Family Care: No Living arrangements: with family Spiritual care concerns: No Meds Home Medications and Allergies Home Medications Medication Instructions Recorded Confirmed Type pregabalin 150 mg capsule (Lyrica) 150 mg PO HS 03/12/20 05/23/24 History carbidopa 25 mg-levodopa 100 mg 3 tablet PO QID 11/14/22 05/23/24 History tablet ascorbic acid (vitamin C) 1,000 mg 1 g PO DAILY 12/14/23 05/23/24 History tablet aspirin 81 mg tablet,delayed 81 mg PO HS 12/14/23 05/23/24 History release d-mannose 500 mg capsule 500 mg PO USEASDIRECTD 12/14/23 05/23/24 History apixaban 5 mg tablet (Eliquis) 5 mg PO BID #180 tabs 01/10/24 05/23/24 Rx duloxetine 60 mg capsule,delayed 60 mg PO QAM 03/14/24 05/23/24 History release B-complex with vitamin C 1 tablet PO DAILY 04/09/24 05/23/24 History atorvastatin 40 mg tablet 40 mg PO HS 04/09/24 05/23/24 History cetirizine 10 mg tablet 10 mg PO DAILY 04/09/24 05/23/24 History cranberry extract 500 mg tablet 500 mg PO DAILY 04/09/24 05/23/24 History diclofenac sodium 1 % topical gel 2 g topical QID 04/09/24 05/23/24 History magnesium oxide 400 mg (241.3 mg 400 mg PO DAILY 04/09/24 05/23/24 History magnesium) tablet melatonin 5 mg PO HS 04/09/24 05/23/24 History mv-folic acid 200 mcg-D3 300 1 tablet PO DAILY 04/09/24 05/23/24 History unit-K2 20 asc-gvvydtuh-zlun#222 tablet (Stages Men's Multi-Vitamin) tobramycin-dexamethasone 0.3 %-0.1 1 applic RIGHT EYE DAILY 04/09/24 05/23/24 History % eye ointment (TobraDex) brimonidine 0.2 %-timolol 0.5 % 1 drp EACH EYE BID 04/24/24 05/23/24 History eye drops lisinopril 10 mg tablet 10 mg PO DAILY 04/24/24 05/23/24 History quetiapine 50 mg tablet (Seroquel) 50 mg PO BID #60 tabs 05/18/24 05/23/24 Rx fluticasone fur. 100 mcg-umeclid 1 inh inhalation DAILY 05/23/24 05/23/24 History 62.5 mcg-vilant 25 mcg inhalat.powder (Trelegy Ellipta) oxybutynin chloride 5 mg 10 mg PO DAILY 05/23/24 05/23/24 History tablet,extended release 24 hr pantoprazole 20 mg tablet,delayed 40 mg PO QAM 05/23/24 05/23/24 History release (Protonix) Allergies Allergy/AdvReac Type Severity Reaction Status Date / Time tramadol Allergy Mild SEIZURE Verified 05/11/24 11:15 Beta-Blockers AdvReac Anxiety Verified 05/11/24 11:15 (Beta-Adrenergic Bloc ticagrelor [From Brilinta] AdvReac Dyspnea / Verified 05/11/24 11:15 SOB Vital Signs Vital Signs - 24 hr 05/24/24 14:00 05/24/24 20:02 05/24/24 20:03 Temperature 36.1 C L Pulse Rate 86 60 Respiratory Rate 18 18 Blood Pressure 105/45 L Pulse Oximetry 98 87 L Oxygen Delivery Room Air Oxygen Flow Rate Fraction of Inspired Oxygen 05/24/24 20:55 05/24/24 20:11 05/25/24 05:35 Temperature 36.1 C L 35.7 C L Pulse Rate 89 62 65 Respiratory Rate 20 18 18 Blood Pressure 156/93 H 140/69 Pulse Oximetry 90 94 Oxygen Delivery Oxygen Flow Rate Fraction of Inspired Oxygen 05/25/24 07:18 05/25/24 07:18 05/25/24 07:29 Temperature Pulse Rate 63 67 Respiratory Rate 18 18 Blood Pressure Pulse Oximetry 92 Oxygen Delivery Nasal Cannula Oxygen Flow Rate 3 Fraction of Inspired Oxygen 32 05/25/24 13:21 05/25/24 13:28 Temperature Pulse Rate 66 69 Respiratory Rate 18 18 Blood Pressure Pulse Oximetry Oxygen Delivery Oxygen Flow Rate Fraction of Inspired Oxygen Exam Const: General: cooperative, comfortable and no acute distress Orientation/consciousness: oriented to person, oriented to place and oriented to time HENMT: Head: normal to inspection Ears: hearing grossly normal bilaterally Eyes: General: appearance normal, both eyes and all related structures Neck: Neck: normal visual inspection Chest: Chest palpation & inspection: normal inspection of the chest Resp: Effort & Inspection: normal respiratory effort and able to speak in complete sentences Auscultation: crackles, no rales, no rhonchi, no wheezes and lung sounds not diminished Other: Few basilar crackles. Cardio: Jugular venous distension: no JVD GI: Inspection: normal to inspection GI Palp: No abdominal tenderness Skin: General skin exam: normal color Neuro: General: oriented to person, oriented to place and oriented to time Extrem: General: normal to inspection and edema Psych: Appearance: grossly normal Results Laboratory Findings 05/25/24 09:44 05/25/24 09:44 ABG, PT/INR, D-dimer: ABG ABG pH 7.426 (7.350-7.450) 05/25/24 12:23 ABG pCO2 46.8 mmHg (35.0-45.0) H 05/25/24 12:23 ABG pO2 66.8 mmHg (80.0-100.0) L 05/25/24 12:23 ABG O2 Saturation 93.5 % (95.0-100.0) L 05/25/24 12:23 Abnormal lab findings: Abnormal Labs 05/23/24 05/24/24 05/25/24 12:33 07:36 09:44 RBC 4.39 L 4.34 L 4.45 L Hgb 11.7 L 11.6 L 11.7 L Hct 36.5 L 36.6 L 38.1 L MCHC 31.7 L 30.7 L RDW 14.8 H 14.9 H 14.8 H Neut % (Auto) 77.4 H 76.2 H Lymph % (Auto) 10.9 L 12.8 L Mcminn % (Auto) 9.2 H 9.4 H Lymph # (Auto) 0.84 L 0.74 L Mcminn # (Auto) 0.7 H ABG pCO2 ABG pO2 ABG HCO3 ABG O2 Saturation Sodium 133 L 134 L 134 L Chloride 96 L 96 L 97 L Carbon Dioxide 32 H 34 H Creatinine 0.50 L 0.60 L 0.60 L Glucose 122 H 149 H Iron 20 L TIBC 235 L % Saturation 9 L 05/25/24 12:23 RBC Hgb Hct MCHC RDW Neut % (Auto) Lymph % (Auto) Mcminn % (Auto) Lymph # (Auto) Mcminn # (Auto) ABG pCO2 46.8 H ABG pO2 66.8 L ABG HCO3 30.1 H ABG O2 Saturation 93.5 L Sodium Chloride Carbon Dioxide Creatinine Glucose Iron TIBC % Saturation Diagnostic Findings Additional studies: ITS Impressions Chest X-Ray 05/23/24 13:06 IMPRESSION: No acute cardiopulmonary pathology. Chest CTA 05/23/24 18:49 IMPRESSION: No pulmonary embolism No aortic dissection. Extremely low lung volumes secondary to elevation of the right hemidiaphragm, unchanged from prior studies. Venous Doppler Study 05/25/24 14:24 IMPRESSION: 1. No deep venous thrombosis. Chest Fluoroscopy 05/25/24 14:58
--- NOTE | 2024-05-25 14:08 | PM.IMPN ---
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 Was weaned to room air overnight but then desatted to 87%. Now on 3 L. - viral PCR negative - CXR No acute cardiopulmonary pathology. - Chest CTA No pulmonary embolism No aortic dissection. Extremely low lung volumes secondary to elevation of the right hemidiaphragm, unchanged from prior studies. - duoneb [place], continue home inhalers -he does have right lower lobe crackles and bilateral lower extremity pitting edema. He takes Lasix as needed at home for swelling. Will diurese with 1 time of IV Lasix 40 mg a day. -wean oxygen to room air -ABG ordered today given persistent hypoxia and o2 requirement. He has a degree of obstructive lung disease low lung volumes with right evita-diaphragm elevation. -SNIFF test ordered by pulmonology -pulmonology was consulted and recs a appreciated - history of diastolic grade 1 disfunction. Repeat ECHO. Given Lasix 40 mg PO daily. (2) Hyponatremia: Code(s): E87.1 - Hypo-osmolality and hyponatremia Status: Acute Assessment and Plan: Sodium slightly decreased at 133 on admission. Monitor fluctuation. Can contribute to weakness but not usually in such a mild drop. (3) Parkinson's disease with dyskinesia and fluctuating manifestations: Code(s): G20.B2 - Parkinson's disease with dyskinesia, with fluctuations Status: Acute Assessment and Plan: - weakness may be manifestation/progression of Parkinson's - continue carbidopa-levodopa - fall precautions - PT/OT eval and treat - care coordination consult - feels she cannot safely care for him at home, care coordination consulted (4) Essential (primary) hypertension: Code(s): I10 - Essential (primary) hypertension Status: Chronic Assessment and Plan: - chronic, currently 117/71 - continue home medications: Lisinopril 10 mg daily - monitor blood pressures (5) Urinary retention: Code(s): R33.9 - Retention of urine, unspecified Status: Acute Assessment and Plan: Patient required intermittent straight catheterization in the emergency room and again this morning. Straight cath yielded 750 mils. Patient did not have the urge to void and was able to empty his bladder independently. Patient is on oxybutynin for overactive bladder. Urinary retention can occur with this medication. Hold for now. Patient is also constipated so this could be contributing. Bowel regimen ordered. Added suppository for today. Gut decompression with also assist with lung expansion. Added Flomax (6) Bilateral lower extremity edema: Code(s): R60.0 - Localized edema Status: Acute Assessment and Plan: - patient also has bilateral lower extremity edema. Swelling has improved after a dose of IV Lasix but he has lower extremity calf discomfort. - suspect discomfort is from the swelling in his legs and immobility. is concerned about a blood clot. Less likely that a clot is present given his treatment with Eliquis but will order venous ultrasound to officially rule out. - Tylenol for pain control Plan Diet: heart healthy GI Prophylaxis: not currently indicated DVT Prophylaxis: continue Eliquis Lines: peripheral Code Status: full code Subjective Date/time seen: 05/25/24 14:08 Interval history: Patient is complaining of pain to bilateral posterior calves. His is concerned about continued swelling to his left hand. He is also still requiring oxygen at 3 L NC. Nursing found him on room air and was sating 84%. He was placed on 3 L NC and saturation improved. His is very concerned about him and would like pulmonology to weigh in on his condition. Review of Systems Review of Systems: All systems reviewed & are unremarkable except as noted in HPI and below Exam Narrative: General: appears comfortable, in no acute distress, on 3 L NC Respiratory: breathing is unlabored with even chest rise/fall, lung sounds are diminished. Cardiovascular: Rate and rhythm regular, normal s1s2, no murmur Abdomen: Soft, round, non-tender, active bowel sounds Extremities: No cyanosis, +2-3 pitting edema to bilateral lower extremities, no clubbing. Pulses 2/2. left hand with dependent edema with full range of motion without pain. Neuro: A&O x 4 Skin: Warm, dry, intact Objective Data Vital Signs Vital Signs: Vital Signs - 24 hr 05/24/24 20:02 05/24/24 20:03 05/24/24 20:55 Temperature 97 F L Pulse Rate 60 89 Respiratory Rate 18 20 Blood Pressure 156/93 H Pulse Oximetry 87 L 90 Oxygen Delivery Room Air Oxygen Flow Rate Fraction of Inspired Oxygen 05/24/24 20:11 05/25/24 05:35 05/25/24 07:18 Temperature 96.2 F L Pulse Rate 62 65 Respiratory Rate 18 18 Blood Pressure 140/69 Pulse Oximetry 94 92 Oxygen Delivery Nasal Cannula Oxygen Flow Rate 3 Fraction of Inspired Oxygen 32 05/25/24 07:18 05/25/24 07:29 05/25/24 13:21 Temperature Pulse Rate 63 67 66 Respiratory Rate 18 18 18 Blood Pressure Pulse Oximetry Oxygen Delivery Oxygen Flow Rate Fraction of Inspired Oxygen 05/25/24 13:28 Temperature Pulse Rate 69 Respiratory Rate 18 Blood Pressure Pulse Oximetry Oxygen Delivery Oxygen Flow Rate Fraction of Inspired Oxygen Intake/Output Intake/Output: Intake & Output 05/22/24 05/23/24 05/24/24 05/25/24 23:59 23:59 23:59 23:59 Intake Total 1870 250 Output Total 1700 1900 Balance 170 -1650 Meds/Results Medications: Active Medications Generic Name Dose Route Start Last Admin Trade Name Freq PRN Reason Stop Dose Admin Albuterol 2.5 mg 05/23/24 20:00 05/25/24 13:21 Albuterol Sulfate Neb 2.5 Mg/3 Ml Inh INHALATION 2.5 mg Q6HRT [facility] Administration Apixaban 5 mg 05/24/24 09:00 05/25/24 08:45 Apixaban 5 Mg Tablet PO 5 mg Q12HR [facility] Administration Ascorbic Acid 1,000 mg 05/24/24 09:00 05/25/24 08:45 Ascorbic Acid 500 Mg Tablet PO 1,000 mg DAILY [facility] Administration Aspirin 81 mg 05/24/24 21:00 05/24/24 20:53 Aspirin 81 Mg Enteric Tablet PO 81 mg HS [facility] Administration Atorvastatin Calcium 40 mg 05/24/24 21:00 05/24/24 20:53 Atorvastatin 40 Mg Tablet PO 40 mg HS [facility] Administration Brimonidine Tartrate 1 drop 05/24/24 09:00 05/24/24 20:57 Brimonidine Tartrate 0.2% Op Soln 5 Ml Btl EACH EYE 1 drop Q12HR [facility] Administration Carbidopa/Levodopa 3 tablet 05/24/24 08:00 05/25/24 13:28 Carbidopa/Levodopa 25/100 Mg Tablet PO 3 tablet DAILY@0800,1200,1600,2000 [facility] Administration Diclofenac Sodium 1 applic 05/24/24 09:00 05/25/24 13:33 Diclofenac Sodium 1% 100 Gm Gel (*Bkc) TOPICAL Not Given QID [facility] Duloxetine HCl 60 mg 05/24/24 09:00 05/25/24 08:45 Duloxetine Hcl 60 Mg Capsule. PO 60 mg QAM [facility] Administration Ferrous Sulfate 325 mg 05/25/24 10:45 05/25/24 13:29 Ferrous Sulfate [address] PO 325 mg DAILY [facility] Administration Fluticasone/Umeclidinium/Vilanterol 1 puff 05/24/24 08:00 05/25/24 07:18 Fluticasone/Umeclidin/Vilanter 100-62.5-25 Mcg Ellipta INHALATION 1 puff DAILYRT [facility] Administration Folic Acid 0.4 mg 05/24/24 09:00 05/25/24 08:45 Folic Acid 0.4 Mg Tablet PO 0.4 mg DAILY [facility] Administration Lisinopril 10 mg 05/24/24 09:00 05/25/24 08:45 Lisinopril 10 Mg Tablet PO 10 mg DAILY [facility] Administration Loratadine 10 mg 05/24/24 09:00 05/25/24 08:45 Loratadine 10 Mg Tablet PO 10 mg QAM [facility] Administration Magnesium Oxide 400 mg 05/24/24 09:00 05/25/24 08:45 Magnesium Oxide 400 Mg Tablet PO 400 mg DAILY [facility] Administration Melatonin 5 mg 05/24/24 21:00 05/24/24 20:54 Melatonin 5 Mg Tablet PO 5 mg HS [facility] Administration Miscellaneous Information 0 each 05/25/24 00:01 Please Provide Directions For D-Mannose Administration XX 06/24/24 00:00 CLARIFY [facility] Multivitamins/Minerals 1 tab 05/24/24 09:00 05/25/24 08:45 Multivitamins /C Lutein (Centrum Silver) Tablet *Bkc PO 1 tab QAM [facility] Administration Non-Formulary Medication 500 mg 05/24/24 00:30 D-Mannose PO 06/23/24 00:29 USEASDIRECTD [facility] Oxybutynin Chloride 5 mg 05/24/24 09:00 05/24/24 09:10 Oxybutynin Chloride Xl 5 Mg Tab.Er.24 PO 5 mg DAILY [facility] Administration Pantoprazole Sodium 40 mg 05/24/24 09:00 05/25/24 08:45 Pantoprazole 40 Mg Tablet PO 40 mg QAM [facility] Administration Perflutren Lipid Microsphere 0 ml 05/25/24 12:02 Perflutren Lipid Microspheres 1.5 Ml Vial Diluted To 10 Ml Total Volume IV PUSH 05/28/24 12:02 ONCE PRN adequate visualization Protocol Polyethylene Glycol 17 gm 05/24/24 11:30 05/25/24 08:45 Polyethylene Glycol 3350 17 Gm Powd.Pack PO 17 gm QAM [facility] Administration Pregabalin 150 mg 05/24/24 21:00 05/24/24 20:52 Pregabalin (*Crx) 75 Mg Capsule PO 150 mg HS [facility] Administration Quetiapine Fumarate 50 mg 05/24/24 09:00 05/25/24 08:45 Quetiapine Fumarate 25 Mg Tablet PO 50 mg Q12HR [facility] Administration Senna/Docusate Sodium 1 tab 05/24/24 21:00 05/24/24 20:53 Senna/Docusate Sodium Tablet PO 1 tab HS [facility] Administration Tamsulosin HCl 0.4 mg 05/25/24 10:45 05/25/24 13:29 Tamsulosin Hcl 0.4 Mg Capsule PO 0.4 mg QAM [facility] Administration Timolol Maleate 1 drop 05/24/24 09:00 05/24/24 20:57 Timolol Maleate 0.5% Op Soln 5 Ml Bottle EACH EYE 1 drop Q12HR [facility] Administration Tobramycin/Dexamethasone 1 applic 05/24/24 09:00 05/24/24 09:13 Tobramycin/Dexamethasone Op Oint 3.5 Gm Tube RIGHT EYE 1 applic DAILY [facility] Administration Vitamin B Complex/Vitamin C 1 each 05/24/24 09:00 05/25/24 08:45 Vitamin B Complex/Vit C Capsule PO 1 each DAILY [facility] Administration Radiology Results: ITS Impressions Chest X-Ray 05/23/24 13:06 IMPRESSION: No acute cardiopulmonary pathology. Chest CTA 05/23/24 18:49 IMPRESSION: No pulmonary embolism No aortic dissection. Extremely low lung volumes secondary to elevation of the right hemidiaphragm, unchanged from prior studies. Labs Labs: Laboratory Results - last 24 hr 05/25/24 05/25/24 09:44 12:23 WBC 5.8 RBC 4.45 L Hgb 11.7 L Hct 38.1 L MCV 85.6 MCH 26.3 MCHC 30.7 L RDW 14.8 H Plt Count 271 MPV 9.1 Immature Gran % (Auto) 0.2 Neut % (Auto) 76.2 H Lymph % (Auto) 12.8 L [place] % (Auto) 7.4 Eos % (Auto) 2.9 Baso % (Auto) 0.5 Lymph # (Auto) 0.74 L [place] # (Auto) 0.4 Eos # (Auto) 0.2 Baso # (Auto) 0.0 Abs Immat Gran (auto) 0.01 Absolute Neuts (auto) 4.4 Absolute Nucleated RBC 0.000 Nucleated RBC % 0.0 Puncture Site Right radial ABG pH 7.426 ABG pCO2 46.8 H ABG pO2 66.8 L ABG PO2/FiO2 Ratio 2.09 ABG HCO3 30.1 H ABG O2 Saturation 93.5 L ABG O2 Content 16.0 ABG Base Excess 4.9 A-a Gradient 165.5 Oxyhemoglobin 92.6 Total Hemoglobin 12.3 O2 Delivery Device Nasal cannula O2 Liters/Min 3.0 FiO2 32 Sodium 134 L Potassium 4.1 Chloride 97 L Carbon Dioxide 30 Anion Gap 7 BUN 17 Creatinine 0.60 L Estim Creat Clear Calc 103 Estimated GFR > 60 Glucose 149 H Calcium 9.0 Total Bilirubin 0.9 AST 24 ALT 7 Alkaline Phosphatase 82 Total Protein 7.0 Albumin 3.6 Quality VTE Prophylaxis VTE prophylaxis: pharmacologic ordered
[2024-05-25] MEDS: DICLOFENAC SODIUM 1% 100 GM GEL (*BKC) 1 APPLIC TOPICAL ×2 (16:15→21:40)
[2024-05-25] MEDS: BISACODYL 10 MG SUPPOSITORY RECTAL (16:16)
[2024-05-25] MEDS: TOBRAMYCIN RIGHT EYE (16:16)
[2024-05-25] MEDS: TIMOLOL MALEATE 0.5% OP SOLN 5 ML BOTTLE 1 DROP EACH EYE (16:16)
[2024-05-25] MEDS: BRIMONIDINE TARTRATE 0.2% OP SOLN 5 ML BTL 1 DROP EACH EYE (16:16)
[2024-05-25] MEDS: [UNRECOGNIZED DRUG - OTHER] RIGHT EYE (16:16)
[2024-05-25] MEDS: FUROSEMIDE 40 MG TABLET PO (16:17)
[2024-05-25] MEDS: PREGABALIN (*CRX) 75 MG CAPSULE 150 MG PO (21:32)
[2024-05-25] MEDS: ATORVASTATIN 40 MG TABLET PO (21:32)
[2024-05-25] MEDS: ALPRAZolam (*CRX) 0.25 MG TABLET PO (21:33)
[2024-05-25] MEDS: ASPIRIN 81 MG ENTERIC TABLET PO (21:33)
[2024-05-25] MEDS: SENNA/DOCUSATE SODIUM TABLET 1 TAB PO (21:33)
[2024-05-25] MEDS: MELATONIN 5 MG TABLET PO (21:38)
--- NOTE | 2024-05-25 22:13 | PC.NURSE ---
Personal property incident report filled out for patient's cracked apple watch.
--- NOTE | 2024-05-26 02:29 | PC.NURSE ---
Pt's came to the desk very upset, because pt's oxygen had dropped during the day time. Day nurse had addressed oxygen concerns and placed pt on 3L. Pt has been 94-95% on 3L. Pt's was demanding to see a doctor and extremely upset that pt's oxygen had dropped prior in the day. Pt's had multiple anxious complaints and was very anxious/upset, even after we took his vitals and showed her that everything was within normal limits, she continued to be very upset. The first 1 hour of my shift, was spent in this pts room trying to reassure his . SHYAM [place] came up to the unit to talk with pt and his , per her request. Pt's seemed to be more assured after speaking in length to Padmini and myself, however then she discovered a large lump on pt's belly, and wanting Padmini to come back to the unit. Myself and charge nurse went back to into pt's room and explained to pt it looked like a hernia, however could not be sure without a dr assessing. She continued to have multiple concerns/anxious complaints until she left at 10 pm. Stated she will be back in the morning to discuss pt's care with
--- NOTE | 2024-05-26 04:48 | PC.NURSE ---
I Notified Chani in respiratory that pt had not been set up for apena link. She stated that she would let his respiratory therapist know, but it was already too late in the night to set it up.
--- NOTE | 2024-05-26 05:53 | PC.NURSE ---
Pt had large bowel movement this A.M. after enema.
[2024-05-26 05:54] VITALS: BP 129/83; PULSE 70; RESP 16; TEMP 36.4; O2SAT 95
[2024-05-26 06:50] LABS: Basophils Percent Auto 0.3 % (0.2-1.2); Eosinophils Absolute Auto 0.2 K/mm3 (0-0.3); Eosinophils Percent Auto 2.8 % (0-4.4); Hematocrit 37.9 % (42.0-52.0); Hemoglobin 12.1 g/dL (14.0-18.0); Immature Granulocyte Absolute 0.03 K/mm3 (0.00-0.031); Immature Granulocyte Percent A 0.5 % (0-0.5); Lymphocytes Absolute Auto 1.37 K/mm3 (0.9-3.2); Lymphocytes Percent Auto 23.9 % (18.3-44.2); Mean Corpuscular HGB Conc 31.9 g/dl (32-36); Mean Corpuscular Hemoglobin 26.5 pg (26-34); Mean Corpuscular Volume 82.9 fl (80-100); Mean Platelet Volume 8.8 fl (7.4-10.4); Monocytes Absolute Auto 0.5 K/mm3 (0.1-0.6); Monocytes Percent Auto 9.1 % (2.6-8.5); Neutrophils Absolute Auto 3.6 K/mm3 (1.3-6.7); Neutrophils Percent Auto 63.4 % (45.5-73.1); Platelet Count Result 299 k/mm3 (150-375); Red Blood Count 4.57 M/mm3 (4.6-6.20); Red Cell Distribution Width 14.6 % (11.5-14.5); White Blood Count 5.7 K/mm3 (4.5-10.0)
[2024-05-26 07:07] LABS: Alanine Aminotransferase 14 U/L (6-50); Albumin Level 3.5 g/dL (3.5-5.1); Alkaline Phosphatase 86 U/L (38-126); Anion Gap 3 mmol/L (4-12); Aspartate Amino Transferase 28 U/L (17-59); Bilirubin,Total 0.8 mg/dL (0.2-1.3); Blood Urea Nitrogen 13 mg/dL (9-20); Calcium 9.1 mg/dL (8.4-10.2); Carbon Dioxide 34 mmol/L (22-30); Chloride 99 mmol/L (98-107); Estimated CRCL calculation 103 ml/min; Estimated Glomerular Filt Rate > 60; Glucose 97 mg/dL (65-110); Potassium 3.9 mmol/L (3.4-5.0); Sodium 136 mmol/L (137-145)
--- NOTE | 2024-05-26 07:17 | P.PNIM_ITS ---
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 Was weaned to room air overnight but then desatted to 87%. Now on 3 L. - viral PCR negative - CXR No acute cardiopulmonary pathology. - Chest CTA No pulmonary embolism No aortic dissection. Extremely low lung volumes secondary to elevation of the right hemidiaphragm, unchanged from prior studies. - duoneb [place], continue home inhalers -he does have right lower lobe crackles and bilateral lower extremity pitting edema. He takes Lasix as needed at home for swelling. Will diurese with 1 time of IV Lasix 40 mg a day. -wean oxygen to room air -ABG ordered today given persistent hypoxia and o2 requirement. He has a degree of obstructive lung disease low lung volumes with right evita-diaphragm elevation. -apnea link was not preformed last night. Will order for it to be completed tonight on room air. -SNIFF test ordered by pulmonology and was normal -pulmonology was consulted and recs a appreciated (2) Hyponatremia: Code(s): E87.1 - Hypo-osmolality and hyponatremia Status: Acute Assessment and Plan: Sodium slightly decreased at 133 on admission. Monitor fluctuation. Can contribute to weakness but not usually in such a mild drop. (3) Parkinson's disease with dyskinesia and fluctuating manifestations: Code(s): G20.B2 - Parkinson's disease with dyskinesia, with fluctuations Status: Acute Assessment and Plan: - weakness may be manifestation/progression of Parkinson's - continue carbidopa-levodopa - fall precautions - PT/OT eval and treat - care coordination consult - feels she cannot safely care for him at home, care coordination consulted (4) Essential (primary) hypertension: Code(s): I10 - Essential (primary) hypertension Status: Chronic Assessment and Plan: - chronic, currently 117/71 - continue home medications: Lisinopril 10 mg daily - monitor blood pressures (5) Urinary retention: Code(s): R33.9 - Retention of urine, unspecified Status: Acute Assessment and Plan: Patient required intermittent straight catheterization in the emergency room and again this morning. Straight cath yielded 750 mils. Patient did not have the urge to void and was able to empty his bladder independently. * Patient is on oxybutynin for overactive bladder. Urinary retention can occur with this medication. Hold for now. * Patient is also constipated so this could be contributing. Bowel regimen ordered. Added suppository for today. Gut decompression with also assist with lung expansion. * Added Flomax * Now that he has had a bowel movement we can discontinue the singh catheter and attempt a void trial (6) Bilateral lower extremity edema: Code(s): R60.0 - Localized edema Status: Acute Assessment and Plan: - patient also has bilateral lower extremity edema. Swelling has improved after a dose of IV Lasix but he has lower extremity calf discomfort. - suspect discomfort is from the swelling in his legs and immobility. is concerned about a blood clot. Less likely that a clot is present given his treatment with Eliquis but will order venous ultrasound to officially rule out. - Tylenol for pain control - history of diastolic grade 1 disfunction. Repeat ECHO. - Given Lasix 20 mg PO daily. Plan Planning for [place] swing bed program at discharge with ETA of Tuesday or Tuesday. Diet: heart healthy GI Prophylaxis: not currently indicated DVT Prophylaxis: continue Eliquis Lines: peripheral Code Status: full code Subjective Date/time seen: 05/26/24 07:17 Interval history: Patient had an episode of low oxygen saturation again and was placed back on oxygen. This morning he is on room air sating 92-95% with conversation. He was able to have a good bowel movement yesterday after an enema. His swelling has also decreased as well. Review of Systems Review of Systems: All systems reviewed & are unremarkable except as noted in HPI and below Exam Narrative: General: appears comfortable, in no acute distress, on room air Respiratory: breathing is unlabored with even chest rise/fall, lung sounds are diminished. Cardiovascular: Rate and rhythm regular, normal s1s2, no murmur Abdomen: Soft, round, non-tender, active bowel sounds Extremities: No cyanosis, +1-2 pitting edema to bilateral lower extremities, no clubbing. Pulses 2/2. Neuro: A&O x 4, slow responses Skin: Warm, dry, intact Objective Data Vital Signs Vital Signs: Vital Signs - 24 hr 05/25/24 07:18 05/25/24 07:18 05/25/24 07:29 Temperature Pulse Rate 63 67 Respiratory Rate 18 18 Blood Pressure Pulse Oximetry 92 Oxygen Delivery Nasal Cannula Oxygen Flow Rate 3 Fraction of Inspired Oxygen 32 05/25/24 13:21 05/25/24 13:28 05/25/24 14:00 Temperature 98.5 F Pulse Rate 66 69 76 Respiratory Rate 18 18 94 H Blood Pressure 128/82 Pulse Oximetry 95 Oxygen Delivery Oxygen Flow Rate Fraction of Inspired Oxygen 05/25/24 18:40 05/25/24 18:42 05/25/24 18:40 Temperature Pulse Rate 88 Respiratory Rate Blood Pressure 150/78 H Pulse Oximetry 83 L 94 Oxygen Delivery Room Air Nasal Cannula Oxygen Flow Rate 3 Fraction of Inspired Oxygen 05/25/24 21:23 05/25/24 20:00 05/26/24 05:54 Temperature 98.7 F 97.6 F Pulse Rate 85 70 Respiratory Rate 13 16 Blood Pressure 159/79 H 129/83 Pulse Oximetry 93 95 Oxygen Delivery Room Air Oxygen Flow Rate Fraction of Inspired Oxygen 05/25/24 21:40 Temperature Pulse Rate Respiratory Rate Blood Pressure Pulse Oximetry 93 Oxygen Delivery Room Air Oxygen Flow Rate Fraction of Inspired Oxygen Intake/Output Intake/Output: Intake & Output 05/23/24 05/24/24 05/25/24 05/26/24 23:59 23:59 23:59 23:59 Intake Total 1870 1490 350 Output Total 1700 2500 1600 Balance 170 -1010 -1250 Meds/Results Medications: Active Medications Generic Name Dose Route Start Last Admin Trade Name Freq PRN Reason Stop Dose Admin Albuterol 2.5 mg 05/25/24 15:41 Albuterol Sulfate Neb 2.5 Mg/3 Ml Inh INHALATION Q4H PRN Wheezing Alprazolam 0.25 mg 05/25/24 21:10 05/25/24 21:33 Alprazolam (*Crx) 0.25 Mg Tablet PO 0.25 mg TID PRN Administration Anxiety Apixaban 5 mg 05/24/24 09:00 05/25/24 21:33 Apixaban 5 Mg Tablet PO 5 mg Q12HR MEDINA Administration Ascorbic Acid 1,000 mg 05/24/24 09:00 05/25/24 08:45 Ascorbic Acid 500 Mg Tablet PO 1,000 mg DAILY MEDINA Administration Aspirin 81 mg 05/24/24 21:00 05/25/24 21:33 Aspirin 81 Mg Enteric Tablet PO 81 mg HS MEDINA Administration Atorvastatin Calcium 40 mg 05/24/24 21:00 05/25/24 21:32 Atorvastatin 40 Mg Tablet PO 40 mg HS MEDINA Administration Brimonidine Tartrate 1 drop 05/24/24 09:00 05/25/24 21:39 Brimonidine Tartrate 0.2% Op Soln 5 Ml Btl EACH EYE Not Given Q12HR MEDINA Carbidopa/Levodopa 3 tablet 05/24/24 08:00 05/25/24 21:39 Carbidopa/Levodopa 25/100 Mg Tablet PO 3 tablet DAILY@0800,1200,1600,2000 MEDINA Administration Diclofenac Sodium 1 applic 05/24/24 09:00 05/25/24 21:40 Diclofenac Sodium 1% 100 Gm Gel (*[facility]) TOPICAL 1 applic QID MEDINA Administration Duloxetine HCl 60 mg 05/24/24 09:00 05/25/24 08:45 Duloxetine Hcl 60 Mg Capsule.Dr PO 60 mg QAM MEDINA Administration Ferrous Sulfate 325 mg 05/25/24 10:45 05/25/24 13:29 Ferrous Sulfate [address] PO 325 mg DAILY MEDINA Administration Fluticasone/Umeclidinium/Vilanterol 1 puff 05/24/24 08:00 05/25/24 07:18 Fluticasone/Umeclidin/Vilanter 100-62.5-25 Mcg Ellipta INHALATION 1 puff DAILYRT MEDINA Administration Folic Acid 0.4 mg 05/24/24 09:00 05/25/24 08:45 Folic Acid 0.4 Mg Tablet PO 0.4 mg DAILY MEDINA Administration Furosemide 40 mg 05/25/24 14:25 05/25/24 16:17 Furosemide 40 Mg Tablet PO 40 mg DAILY MEDINA Administration Lisinopril 10 mg 05/24/24 09:00 05/25/24 08:45 Lisinopril 10 Mg Tablet PO 10 mg DAILY MEDINA Administration Loratadine 10 mg 05/24/24 09:00 05/25/24 08:45 Loratadine 10 Mg Tablet PO 10 mg QAM MEDINA Administration Magnesium Oxide 400 mg 05/24/24 09:00 05/25/24 08:45 Magnesium Oxide 400 Mg Tablet PO 400 mg DAILY MEDINA Administration Melatonin 5 mg 05/24/24 21:00 05/25/24 21:38 Melatonin 5 Mg Tablet PO 5 mg HS MEDINA Administration Miscellaneous Information 0 each 05/25/24 00:01 05/26/24 05:54 Please Provide Directions For D-Mannose Administration XX 06/24/24 00:00 Not Given CLARIFY MEDINA Multivitamins/Minerals 1 tab 05/24/24 09:00 05/25/24 08:45 Multivitamins /C Lutein (Centrum Silver) Tablet *Bkc PO 1 tab QAM MEDINA Administration Non-Formulary Medication 500 mg 05/24/24 00:30 D-Mannose PO 06/23/24 00:29 DIRECTED MEDINA Oxybutynin Chloride 5 mg 05/24/24 09:00 05/24/24 09:10 Oxybutynin Chloride Xl 5 Mg Tab.Er.24 PO 5 mg DAILY MEDINA Administration Pantoprazole Sodium 40 mg 05/24/24 09:00 05/25/24 08:45 Pantoprazole 40 Mg Tablet PO 40 mg QAM MEDINA Administration Perflutren Lipid Microsphere 0 ml 05/25/24 12:02 Perflutren Lipid Microspheres 1.5 Ml Vial Diluted To 10 Ml Total Volume IV PUSH 05/28/24 12:02 ONCE PRN adequate visualization Protocol Polyethylene Glycol 17 gm 05/24/24 11:30 05/25/24 08:45 Polyethylene Glycol 3350 17 Gm Powd.Pack PO 17 gm QAM MEDINA Administration Pregabalin 150 mg 05/24/24 21:00 05/25/24 21:32 Pregabalin (*Crx) 75 Mg Capsule PO 150 mg HS MEDINA Administration Quetiapine Fumarate 50 mg 05/24/24 09:00 05/25/24 21:33 Quetiapine Fumarate 25 Mg Tablet PO 50 mg Q12HR MEDINA Administration Senna/Docusate Sodium 1 tab 05/24/24 21:00 05/25/24 21:33 Senna/Docusate Sodium Tablet PO 1 tab HS MEDINA Administration Tamsulosin HCl 0.4 mg 05/25/24 10:45 05/25/24 13:29 Tamsulosin Hcl 0.4 Mg Capsule PO 0.4 mg QAM MEDINA Administration Timolol Maleate 1 drop 05/24/24 09:00 05/25/24 21:39 Timolol Maleate 0.5% Op Soln 5 Ml Bottle EACH EYE Not Given Q12HR MEDINA Tobramycin/Dexamethasone 1 applic 05/24/24 09:00 05/25/24 16:16 Tobramycin/Dexamethasone Op Oint 3.5 Gm Tube RIGHT EYE 1 applic DAILY MEDINA Administration Vitamin B Complex/Vitamin C 1 each 05/24/24 09:00 05/25/24 08:45 Vitamin B Complex/Vit C Capsule PO 1 each DAILY MEDINA Administration Radiology Results: ITS Impressions Chest X-Ray 05/23/24 13:06 IMPRESSION: No acute cardiopulmonary pathology. Chest CTA 05/23/24 18:49 IMPRESSION: No pulmonary embolism No aortic dissection. Extremely low lung volumes secondary to elevation of the right hemidiaphragm, unchanged from prior studies. Venous Doppler Study 05/25/24 14:24 IMPRESSION: 1. No deep venous thrombosis. Chest Fluoroscopy 05/25/24 14:58 IMPRESSION: 1. Small lung volumes with mild atelectasis at the lung bases. 2. Normal motion of the diaphragm. 3. Small left pleural effusion. Labs Labs: Laboratory Results - last 24 hr 05/25/24 05/25/24 05/26/24 09:44 12:23 06:02 WBC 5.8 5.7 RBC 4.45 L 4.57 L Hgb 11.7 L 12.1 L Hct 38.1 L 37.9 L MCV 85.6 82.9 MCH 26.3 26.5 MCHC 30.7 L 31.9 L RDW 14.8 H 14.6 H Plt Count 271 299 MPV 9.1 8.8 Immature Gran % (Auto) 0.2 0.5 Neut % (Auto) 76.2 H 63.4 Lymph % (Auto) 12.8 L 23.9 [place] % (Auto) 7.4 9.1 H Eos % (Auto) 2.9 2.8 Baso % (Auto) 0.5 0.3 Lymph # (Auto) 0.74 L 1.37 [place] # (Auto) 0.4 0.5 Eos # (Auto) 0.2 0.2 Baso # (Auto) 0.0 0.0 Abs Immat Gran (auto) 0.01 0.03 Absolute Neuts (auto) 4.4 3.6 Absolute Nucleated RBC 0.000 0.000 Nucleated RBC % 0.0 0.0 Puncture Site Right radial ABG pH 7.426 ABG pCO2 46.8 H ABG pO2 66.8 L ABG PO2/FiO2 Ratio 2.09 ABG HCO3 30.1 H ABG O2 Saturation 93.5 L ABG O2 Content 16.0 ABG Base Excess 4.9 A-a Gradient 165.5 Oxyhemoglobin 92.6 Total Hemoglobin 12.3 O2 Delivery Device Nasal cannula O2 Liters/Min 3.0 FiO2 32 Sodium 134 L 136 L Potassium 4.1 3.9 Chloride 97 L 99 Carbon Dioxide 30 34 H Anion Gap 7 3 L BUN 17 13 Creatinine 0.60 L 0.60 L Estim Creat Clear Calc 103 103 Estimated GFR > 60 > 60 Glucose 149 H 97 Calcium 9.0 9.1 Total Bilirubin 0.9 0.8 AST 24 28 ALT 7 14 Alkaline Phosphatase 82 86 Total Protein 7.0 7.0 Albumin 3.6 3.5 Quality VTE Prophylaxis VTE prophylaxis: pharmacologic ordered
[2024-05-26] MEDS: FLUTICASONE/UMECLIDIN/VILANTER 100-62.5-25 MCG ELLIPTA 1 PUFF INHALATION (07:45)
[2024-05-26 09:30] VITALS: O2SAT 95
[2024-05-26] MEDS: APIXABAN 5 MG TABLET PO ×2 (09:31→20:25)
[2024-05-26] MEDS: DULoxetine HCL 60 MG CAPSULE.DR PO (09:31)
[2024-05-26] MEDS: QUEtiapine FUMARATE 25 MG TABLET 50 MG PO ×2 (09:31→20:25)
[2024-05-26] MEDS: PANTOPRAZOLE 40 MG TABLET PO (09:31)
[2024-05-26] MEDS: VITAMIN B COMPLEX/VIT C CAPSULE 1 EACH PO (09:31)
[2024-05-26] MEDS: LORATADINE 10 MG TABLET PO (09:31)
[2024-05-26] MEDS: ASCORBIC ACID 500 MG TABLET 1000 MG PO (09:31)
[2024-05-26] MEDS: MULTIVITAMINS /C LUTEIN (CENTRUM SILVER) TABLET *BKC 1 TAB PO (09:31)
[2024-05-26] MEDS: FUROSEMIDE 40 MG TABLET PO (09:32)
[2024-05-26] MEDS: lisinopriL 10 MG TABLET PO (09:32)
[2024-05-26] MEDS: FERROUS SULFATE 325 MG TABLET DR PO (09:32)
[2024-05-26] MEDS: FOLIC ACID 0.4 MG TABLET PO (09:32)
[2024-05-26] MEDS: MAGNESIUM OXIDE 400 MG TABLET PO (09:32)
[2024-05-26] MEDS: TAMSULOSIN HCL 0.4 MG CAPSULE PO (09:32)
[2024-05-26] MEDS: TIMOLOL MALEATE 0.5% OP SOLN 5 ML BOTTLE 1 DROP EACH EYE ×2 (09:33→20:32)
[2024-05-26] MEDS: polyethylene glycoL 3350 17 GM POWD.PACK PO (09:33)
[2024-05-26] MEDS: BRIMONIDINE TARTRATE 0.2% OP SOLN 5 ML BTL 1 DROP EACH EYE ×2 (09:34→20:32)
[2024-05-26] MEDS: CARBIDOPA/LEVODOPA 25/100 MG TABLET 3 TABLET PO ×4 (09:45→20:24)
[2024-05-26] MEDS: DICLOFENAC SODIUM 1% 100 GM GEL (*BKC) 1 APPLIC TOPICAL ×3 (14:44→20:32)
[2024-05-26 15:05] VITALS: BP 122/65; PULSE 77; RESP 16; TEMP 36.7; O2SAT 91
[2024-05-26] MEDS: ALPRAZolam (*CRX) 0.25 MG TABLET PO (17:39)
[2024-05-26] MEDS: ACETAMINOPHEN 325 MG TABLET 650 MG PO ×2 (18:01→20:24)
--- NOTE | 2024-05-26 19:40 | PC.NURSE ---
On 05/26/24, the COIL ASSEMBLER, Estella Mcbride, provided care and completed [facility] documentation on this patient. I have reviewed the COIL ASSEMBLER's documentation and agree with the findings.
[2024-05-26] MEDS: PREGABALIN (*CRX) 75 MG CAPSULE 150 MG PO (20:24)
[2024-05-26] MEDS: SENNA/DOCUSATE SODIUM TABLET 1 TAB PO (20:25)
[2024-05-26] MEDS: MELATONIN 5 MG TABLET PO (20:25)
[2024-05-26] MEDS: ATORVASTATIN 40 MG TABLET PO (20:25)
[2024-05-26] MEDS: ASPIRIN 81 MG ENTERIC TABLET PO (20:26)
[2024-05-26] MEDS: TOBRAMYCIN RIGHT EYE (20:32)
[2024-05-26] MEDS: [UNRECOGNIZED DRUG - OTHER] RIGHT EYE (20:32)
[2024-05-26 21:04] VITALS: BP 141/77; PULSE 85; RESP 16; TEMP 37.3; O2SAT 91
[2024-05-26 22:39] VITALS: O2SAT 93
[2024-05-27 05:43] VITALS: BP 113/64; PULSE 64; RESP 18; TEMP 37.2; O2SAT 92
[2024-05-27 06:40] LABS: Basophils Percent Auto 0.4 % (0.2-1.2); Eosinophils Absolute Auto 0.3 K/mm3 (0-0.3); Eosinophils Percent Auto 5.5 % (0-4.4); Hemoglobin 10.7 g/dL (14.0-18.0); Immature Granulocyte Absolute 0.02 K/mm3 (0.00-0.031); Immature Granulocyte Percent A 0.4 % (0-0.5); Lymphocytes Absolute Auto 1.59 K/mm3 (0.9-3.2); Lymphocytes Percent Auto 29.9 % (18.3-44.2); Mean Corpuscular HGB Conc 30.6 g/dl (32-36); Mean Corpuscular Hemoglobin 25.7 pg (26-34); Mean Corpuscular Volume 84.1 fl (80-100); Mean Platelet Volume 8.8 fl (7.4-10.4); Monocytes Absolute Auto 0.5 K/mm3 (0.1-0.6); Neutrophils Absolute Auto 2.9 K/mm3 (1.3-6.7); Neutrophils Percent Auto 53.8 % (45.5-73.1); Platelet Count Result 265 k/mm3 (150-375); Red Blood Count 4.16 M/mm3 (4.6-6.20); Red Cell Distribution Width 14.8 % (11.5-14.5); White Blood Count 5.3 K/mm3 (4.5-10.0)
[2024-05-27 06:57] LABS: Albumin Level 3.2 g/dL (3.5-5.1); Alkaline Phosphatase 77 U/L (38-126); Anion Gap 6 mmol/L (4-12); Aspartate Amino Transferase 27 U/L (17-59); Bilirubin,Total 0.5 mg/dL (0.2-1.3); Blood Urea Nitrogen 18 mg/dL (9-20); Calcium 8.8 mg/dL (8.4-10.2); Carbon Dioxide 32 mmol/L (22-30); Chloride 98 mmol/L (98-107); Estimated CRCL calculation 103 ml/min; Estimated Glomerular Filt Rate > 60; Glucose 101 mg/dL (65-110); Potassium 3.9 mmol/L (3.4-5.0); Sodium 136 mmol/L (137-145)
[2024-05-27 06:58] LABS: Alanine Aminotransferase < 6 U/L (6-50)
--- NOTE | 2024-05-27 08:24 | PM.IMPN ---
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 Was weaned to room air overnight but then desatted to 87%. Now on 3 L. - viral PCR negative - CXR No acute cardiopulmonary pathology. - Chest CTA No pulmonary embolism No aortic dissection. Extremely low lung volumes secondary to elevation of the right hemidiaphragm, unchanged from prior studies. - duoneb [place], continue home inhalers -he does have right lower lobe crackles and bilateral lower extremity pitting edema. He takes Lasix as needed at home for swelling. Will diurese with 1 time of IV Lasix 40 mg a day. -wean oxygen to room air -ABG ordered today given persistent hypoxia and o2 requirement. He has a degree of obstructive lung disease low lung volumes with right evita-diaphragm elevation. -apnea link was preformed and showed o2 desaturation less than 88% for 178 minutes. Will repeat apnea link on 2 L NC tonight. -SNIFF test ordered by pulmonology and was normal -pulmonology was consulted and recs a appreciated (2) Hyponatremia: Code(s): E87.1 - Hypo-osmolality and hyponatremia Status: Acute Assessment and Plan: Sodium slightly decreased at 133 on admission. Monitor fluctuation. Can contribute to weakness but not usually in such a mild drop. (3) Parkinson's disease with dyskinesia and fluctuating manifestations: Code(s): G20.B2 - Parkinson's disease with dyskinesia, with fluctuations Status: Acute Assessment and Plan: - weakness may be manifestation/progression of Parkinson's - continue carbidopa-levodopa - fall precautions - PT/OT eval and treat - care coordination consult - feels she cannot safely care for him at home, care coordination consulted - planning for discharge tomorrow to swing bed at [place] or [place] (4) Essential (primary) hypertension: Code(s): I10 - Essential (primary) hypertension Status: Chronic Assessment and Plan: - chronic, currently 117/71 - continue home medications: Lisinopril 10 mg daily - monitor blood pressures (5) Urinary retention: Code(s): R33.9 - Retention of urine, unspecified Status: Acute Assessment and Plan: Patient required intermittent straight catheterization in the emergency room and again this morning. Straight cath yielded 750 mils. Patient did not have the urge to void and was able to empty his bladder independently. Patient is on oxybutynin for overactive bladder. Urinary retention can occur with this medication. Hold for now. Patient is also constipated so this could be contributing. Bowel regimen ordered. Added suppository for today. Gut decompression with also assist with lung expansion. Added Flomax Now that he has had a bowel movement we can discontinue the singh catheter and attempt a void trial Voiding spontaneously, check post void bladder scan (6) Bilateral lower extremity edema: Code(s): R60.0 - Localized edema Status: Acute Assessment and Plan: - patient also has bilateral lower extremity edema. Swelling has improved after a dose of IV Lasix but he has lower extremity calf discomfort. - suspect discomfort is from the swelling in his legs and immobility. is concerned about a blood clot. Less likely that a clot is present given his treatment with Eliquis but will order venous ultrasound to officially rule out. - Tylenol for pain control - history of diastolic grade 1 disfunction. Repeat ECHO. - Given Lasix 20 mg PO x 2 doses. Plan Planning for swing bed program at discharge with ETA of Tuesday or Tuesday. Diet: heart healthy GI Prophylaxis: not currently indicated DVT Prophylaxis: continue Eliquis Lines: peripheral Code Status: full code Subjective Date/time seen: 05/27/24 08:24 Interval history: No acute events overnight. He slept well and was able to complete the sleep study. He did have desaturation greater than 88% for greater than 5 minutes so a sleep study will be repeated on 2 L nc. He is urinating without difficult and his swelling is improved. No complaints at this time. Review of Systems Review of Systems: All systems reviewed & are unremarkable except as noted in HPI and below Exam Narrative: General: appears comfortable, in no acute distress, on room air Respiratory: breathing is unlabored with even chest rise/fall, lung sounds are diminished. Cardiovascular: Rate and rhythm regular, normal s1s2, no murmur Abdomen: Soft, round, non-tender, active bowel sounds Extremities: No cyanosis, +1-2 pitting edema to bilateral lower extremities, no clubbing. Pulses 2/2. Neuro: A&O x 4, slow responses Skin: Warm, dry, intact Objective Data Vital Signs Vital Signs: Vital Signs - 24 hr 05/26/24 09:30 05/26/24 15:05 05/26/24 21:04 Temperature 98.1 F 99.1 F Pulse Rate 77 85 Respiratory Rate 16 16 Blood Pressure 122/65 141/77 H Pulse Oximetry 95 91 91 Oxygen Delivery Nasal Cannula Oxygen Flow Rate 3 05/26/24 20:00 05/26/24 22:39 05/27/24 05:43 Temperature 98.9 F Pulse Rate 64 Respiratory Rate 18 Blood Pressure 113/64 Pulse Oximetry 93 92 Oxygen Delivery Room Air Room Air Oxygen Flow Rate Intake/Output Intake/Output: Intake & Output 05/24/24 05/25/24 05/26/24 05/27/24 23:59 23:59 23:59 23:59 Intake Total 1870 1490 1428 400 Output Total 1700 2500 1800 900 Balance 880 -7390 -372 -500 Meds/Results Medications: Active Medications Generic Name Dose Route Start Last Admin Trade Name Freq PRN Reason Stop Dose Admin Acetaminophen 650 mg 05/26/24 17:47 05/26/24 20:24 Acetaminophen 325 Mg Tablet PO 650 mg Q6H PRN Administration Mild Pain (1-3) or Fever Albuterol 2.5 mg 05/25/24 15:41 Albuterol Sulfate Neb 2.5 Mg/3 Ml Inh INHALATION Q4H PRN Wheezing Alprazolam 0.25 mg 05/25/24 21:10 05/26/24 17:39 Alprazolam (*Crx) 0.25 Mg Tablet PO 0.25 mg TID PRN Administration Anxiety Apixaban 5 mg 05/24/24 09:00 05/26/24 20:25 Apixaban 5 Mg Tablet PO 5 mg Q12HR MEDINA Administration Ascorbic Acid 1,000 mg 05/24/24 09:00 05/26/24 09:31 Ascorbic Acid 500 Mg Tablet PO 1,000 mg DAILY MEDINA Administration Aspirin 81 mg 05/24/24 21:00 05/26/24 20:26 Aspirin 81 Mg Enteric Tablet PO 81 mg HS MEDINA Administration Atorvastatin Calcium 40 mg 05/24/24 21:00 05/26/24 20:25 Atorvastatin 40 Mg Tablet PO 40 mg HS MEDINA Administration Brimonidine Tartrate 1 drop 05/24/24 09:00 05/26/24 20:32 Brimonidine Tartrate 0.2% Op Soln 5 Ml Btl EACH EYE 1 drop Q12HR MEDINA Administration Carbidopa/Levodopa 3 tablet 05/26/24 16:00 05/26/24 20:24 Carbidopa/Levodopa 25/100 Mg Tablet PO 3 tablet QID@0800,1200,1600,2000 MEDINA Administration Diclofenac Sodium 1 applic 05/24/24 09:00 05/26/24 20:32 Diclofenac Sodium 1% 100 Gm Gel (*[facility]) TOPICAL 1 applic QID MDEINA Administration Duloxetine HCl 60 mg 05/24/24 09:00 05/26/24 09:31 Duloxetine Hcl 60 Mg Capsule.Dr PO 60 mg QAM MEDINA Administration Ferrous Sulfate 325 mg 05/25/24 10:45 05/26/24 09:32 Ferrous Sulfate [address] PO 325 mg DAILY MEDINA Administration Fluticasone/Umeclidinium/Vilanterol 1 puff 05/24/24 08:00 05/26/24 07:45 Fluticasone/Umeclidin/Vilanter 100-62.5-25 Mcg Ellipta INHALATION 1 puff DAILYRT MEDINA Administration Folic Acid 0.4 mg 05/24/24 09:00 05/26/24 09:32 Folic Acid 0.4 Mg Tablet PO 0.4 mg DAILY MEDINA Administration Furosemide 20 mg 05/27/24 09:00 Furosemide 20 Mg Tablet PO DAILY MEDINA Lisinopril 10 mg 05/24/24 09:00 05/26/24 09:32 Lisinopril 10 Mg Tablet PO 10 mg DAILY MEDINA Administration Loratadine 10 mg 05/24/24 09:00 05/26/24 09:31 Loratadine 10 Mg Tablet PO 10 mg QAM MEDINA Administration Magnesium Oxide 400 mg 05/24/24 09:00 05/26/24 09:32 Magnesium Oxide 400 Mg Tablet PO 400 mg DAILY MEDINA Administration Melatonin 5 mg 05/24/24 21:00 05/26/24 20:25 Melatonin 5 Mg Tablet PO 5 mg HS MEDINA Administration Miscellaneous Information 0 each 05/25/24 00:01 05/27/24 02:16 Please Provide Directions For D-Mannose Administration XX 06/24/24 00:00 Not Given CLARIFY [facility] Multivitamins/Minerals 1 tab 05/24/24 09:00 05/26/24 09:31 Multivitamins /C Lutein (Centrum Silver) Tablet *Bkc PO 1 tab QAM MEDINA Administration Non-Formulary Medication 500 mg 05/24/24 00:30 D-Mannose PO 06/23/24 00:29 DIRECTED MEDINA Oxybutynin Chloride 5 mg 05/24/24 09:00 05/24/24 09:10 Oxybutynin Chloride Xl 5 Mg Tab.Er.24 PO 5 mg DAILY MEDINA Administration Pantoprazole Sodium 40 mg 05/24/24 09:00 05/26/24 09:31 Pantoprazole 40 Mg Tablet PO 40 mg QAM MEDINA Administration Perflutren Lipid Microsphere 0 ml 05/25/24 12:02 Perflutren Lipid Microspheres 1.5 Ml Vial Diluted To 10 Ml Total Volume IV PUSH 05/28/24 12:02 ONCE PRN adequate visualization Protocol Polyethylene Glycol 17 gm 05/24/24 11:30 05/26/24 09:33 Polyethylene Glycol 3350 17 Gm Powd.Pack PO 17 gm QAM MEDINA Administration Pregabalin 150 mg 05/24/24 21:00 05/26/24 20:24 Pregabalin (*Crx) 75 Mg Capsule PO 150 mg HS MEDINA Administration Quetiapine Fumarate 50 mg 05/24/24 09:00 05/26/24 20:25 Quetiapine Fumarate 25 Mg Tablet PO 50 mg Q12HR MEDINA Administration Senna/Docusate Sodium 1 tab 05/24/24 21:00 05/26/24 20:25 Senna/Docusate Sodium Tablet PO 1 tab HS MEDINA Administration Tamsulosin HCl 0.4 mg 05/25/24 10:45 05/26/24 09:32 Tamsulosin Hcl 0.4 Mg Capsule PO 0.4 mg QAM MEDINA Administration Timolol Maleate 1 drop 05/24/24 09:00 05/26/24 20:32 Timolol Maleate 0.5% Op Soln 5 Ml Bottle EACH EYE 1 drop Q12HR MEDINA Administration Tobramycin/Dexamethasone 1 applic 05/26/24 21:00 05/26/24 20:32 Tobramycin/Dexamethasone Op Oint 3.5 Gm Tube RIGHT EYE 1 applic 2100 MEDINA Administration Vitamin B Complex/Vitamin C 1 each 05/24/24 09:00 05/26/24 09:31 Vitamin B Complex/Vit C Capsule PO 1 each DAILY MEDINA Administration Radiology Results: ITS Impressions Chest X-Ray 05/23/24 13:06 IMPRESSION: No acute cardiopulmonary pathology. Chest CTA 05/23/24 18:49 IMPRESSION: No pulmonary embolism No aortic dissection. Extremely low lung volumes secondary to elevation of the right hemidiaphragm, unchanged from prior studies. Venous Doppler Study 05/25/24 14:24 IMPRESSION: 1. No deep venous thrombosis. Chest Fluoroscopy 05/25/24 14:58 IMPRESSION: 1. Small lung volumes with mild atelectasis at the lung bases. 2. Normal motion of the diaphragm. 3. Small left pleural effusion. Labs Labs: Laboratory Results - last 24 hr 05/27/24 05:55 WBC 5.3 RBC 4.16 L Hgb 10.7 L Hct 35.0 L MCV 84.1 MCH 25.7 L MCHC 30.6 L RDW 14.8 H Plt Count 265 MPV 8.8 Immature Gran % (Auto) 0.4 Neut % (Auto) 53.8 Lymph % (Auto) 29.9 [place] % (Auto) 10.0 H Eos % (Auto) 5.5 H Baso % (Auto) 0.4 Lymph # (Auto) 1.59 [place] # (Auto) 0.5 Eos # (Auto) 0.3 Baso # (Auto) 0.0 Abs Immat Gran (auto) 0.02 Absolute Neuts (auto) 2.9 Absolute Nucleated RBC 0.000 Nucleated RBC % 0.0 Sodium 136 L Potassium 3.9 Chloride 98 Carbon Dioxide 32 H Anion Gap 6 BUN 18 Creatinine 0.60 L Estim Creat Clear Calc 103 Estimated GFR > 60 Glucose 101 Calcium 8.8 Total Bilirubin 0.5 AST 27 ALT < 6 L Alkaline Phosphatase 77 Total Protein 7.0 Albumin 3.2 L Quality VTE Prophylaxis VTE prophylaxis: pharmacologic ordered
[2024-05-27] MEDS: FOLIC ACID 0.4 MG TABLET PO (08:38)
[2024-05-27] MEDS: VITAMIN B COMPLEX/VIT C CAPSULE 1 EACH PO (08:39)
[2024-05-27] MEDS: CARBIDOPA/LEVODOPA 25/100 MG TABLET 3 TABLET PO ×4 (08:39→20:45)
[2024-05-27] MEDS: QUEtiapine FUMARATE 25 MG TABLET 50 MG PO ×2 (08:39→20:45)
[2024-05-27] MEDS: APIXABAN 5 MG TABLET PO ×2 (08:39→20:46)
[2024-05-27 08:40] VITALS: BP 134/91; PULSE 68; O2SAT 92
[2024-05-27] MEDS: FERROUS SULFATE 325 MG TABLET DR PO (08:41)
[2024-05-27] MEDS: MULTIVITAMINS /C LUTEIN (CENTRUM SILVER) TABLET *BKC 1 TAB PO (08:41)
[2024-05-27] MEDS: DULoxetine HCL 60 MG CAPSULE.DR PO (08:41)
[2024-05-27] MEDS: LORATADINE 10 MG TABLET PO (08:41)
[2024-05-27] MEDS: PANTOPRAZOLE 40 MG TABLET PO (08:41)
[2024-05-27] MEDS: lisinopriL 10 MG TABLET PO (08:41)
[2024-05-27] MEDS: MAGNESIUM OXIDE 400 MG TABLET PO (08:41)
[2024-05-27] MEDS: ASCORBIC ACID 500 MG TABLET 1000 MG PO (08:41)
[2024-05-27] MEDS: polyethylene glycoL 3350 17 GM POWD.PACK PO (08:41)
[2024-05-27] MEDS: TAMSULOSIN HCL 0.4 MG CAPSULE PO (08:41)
[2024-05-27] MEDS: DICLOFENAC SODIUM 1% 100 GM GEL (*BKC) 1 APPLIC TOPICAL ×4 (08:46→20:53)
[2024-05-27] MEDS: BRIMONIDINE TARTRATE 0.2% OP SOLN 5 ML BTL 1 DROP EACH EYE ×2 (08:47→20:51)
[2024-05-27] MEDS: TIMOLOL MALEATE 0.5% OP SOLN 5 ML BOTTLE 1 DROP EACH EYE ×2 (08:47→20:51)
[2024-05-27] MEDS: FLUTICASONE/UMECLIDIN/VILANTER 100-62.5-25 MCG ELLIPTA 1 PUFF INHALATION (09:06)
[2024-05-27 09:15] VITALS: O2SAT 92
[2024-05-27 14:00] VITALS: BP 118/74; PULSE 74; RESP 16; TEMP 36.6; O2SAT 94
[2024-05-27] MEDS: ACETAMINOPHEN 325 MG TABLET 650 MG PO (15:16)
[2024-05-27] MEDS: ASPIRIN 81 MG ENTERIC TABLET PO (20:45)
[2024-05-27] MEDS: SENNA/DOCUSATE SODIUM TABLET 1 TAB PO (20:45)
[2024-05-27] MEDS: ALPRAZolam (*CRX) 0.25 MG TABLET PO (20:45)
[2024-05-27] MEDS: ATORVASTATIN 40 MG TABLET PO (20:46)
[2024-05-27] MEDS: PREGABALIN (*CRX) 75 MG CAPSULE 150 MG PO (20:46)
[2024-05-27] MEDS: MELATONIN 5 MG TABLET PO (20:46)
[2024-05-27] MEDS: [UNRECOGNIZED DRUG - OTHER] RIGHT EYE (20:51)
[2024-05-27] MEDS: TOBRAMYCIN RIGHT EYE (20:51)
[2024-05-27 21:00] VITALS: O2SAT 95
[2024-05-27 21:19] VITALS: BP 140/81; PULSE 75; RESP 20; TEMP 36.5; O2SAT 95
[2024-05-28] VITALS (11 sets, daily range): BP systolic 113–162; BP diastolic 66–88; PULSE 70–106; RESP 16–24; TEMP 36.6–37.5; O2SAT 90–96; BMI 10.0
[2024-05-28 06:35] LABS: Basophils Percent Auto 0.3 % (0.2-1.2); Eosinophils Absolute Auto 0.1 K/mm3 (0-0.3); Eosinophils Percent Auto 1.4 % (0-4.4); Hematocrit 38.4 % (42.0-52.0); Hemoglobin 12.1 g/dL (14.0-18.0); Immature Granulocyte Absolute 0.02 K/mm3 (0.00-0.031); Immature Granulocyte Percent A 0.3 % (0-0.5); Lymphocytes Absolute Auto 0.59 K/mm3 (0.9-3.2); Lymphocytes Percent Auto 7.4 % (18.3-44.2); Mean Corpuscular HGB Conc 31.5 g/dl (32-36); Mean Corpuscular Hemoglobin 26.5 pg (26-34); Mean Corpuscular Volume 84.2 fl (80-100); Monocytes Absolute Auto 0.3 K/mm3 (0.1-0.6); Neutrophils Absolute Auto 6.9 K/mm3 (1.3-6.7); Neutrophils Percent Auto 86.6 % (45.5-73.1); Platelet Count Result 231 k/mm3 (150-375); Red Blood Count 4.56 M/mm3 (4.6-6.20); Red Cell Distribution Width 14.8 % (11.5-14.5)
[2024-05-28 06:48] LABS: Alanine Aminotransferase 6 U/L (6-50); Albumin Level 3.4 g/dL (3.5-5.1); Alkaline Phosphatase 81 U/L (38-126); Anion Gap 5 mmol/L (4-12); Aspartate Amino Transferase 31 U/L (17-59); Bilirubin,Total 0.7 mg/dL (0.2-1.3); Blood Urea Nitrogen 16 mg/dL (9-20); Calcium 8.9 mg/dL (8.4-10.2); Carbon Dioxide 34 mmol/L (22-30); Chloride 98 mmol/L (98-107); Estimated CRCL calculation 103 ml/min; Estimated Glomerular Filt Rate > 60; Glucose 108 mg/dL (65-110); Potassium 4.3 mmol/L (3.4-5.0); Sodium 137 mmol/L (137-145)
[2024-05-28] MEDS: FLUTICASONE/UMECLIDIN/VILANTER 100-62.5-25 MCG ELLIPTA 1 PUFF INHALATION (07:45)
--- NOTE | 2024-05-28 09:40 | PCOTNOTE ---
Patient had a Code Stroke called this A.M. Will check back at a later time.
--- NOTE | 2024-05-28 09:42 | P.PNIM_ITS ---
Progress Note: A&P Assessment and Plan (1) Altered mental status: Code(s): R41.82 - Altered mental status, unspecified Status: Acute Assessment and Plan: Patient had acute episode of altered mental status with expressive dysphagia. He does not seem to have unilateral weakness. He has upper arm drift, bilateral lower extremities with no effort against gravity. Code stroke was called. Dr Dias responded to code stroke. CT head non-contrast was ordered and was negative. * Patient had a CTA head/neck from 04/06/24 showed 20% stenosis on the left side. Per neurology, since CTA was so recent no need to repeat. * Will obtain bilateral carotid Doppler * Stopping Xanax, although this is unlikely the cause * can consider holding parkinson's medications but will defer this to neurology (2) Mixed restrictive and obstructive lung disease: Code(s): J43.9 - Emphysema, unspecified; J98.4 - Other disorders of lung Status: Acute Assessment and Plan: - new transient O2 requirement: 5L NC, no previous requirement. Was weaned to room air overnight but then desatted to 87%. Now on 3 L. - viral PCR negative - CXR No acute cardiopulmonary pathology. - Chest CTA No pulmonary embolism No aortic dissection. Extremely low lung volumes secondary to elevation of the right hemidiaphragm, unchanged from prior studies. - duoneb [place], continue home inhalers -he does have right lower lobe crackles and bilateral lower extremity pitting edema. He takes Lasix as needed at home for swelling. Will diurese with 1 time of IV Lasix 40 mg a day. -wean oxygen to room air -ABG ordered today given persistent hypoxia and o2 requirement. He has a degree of obstructive lung disease low lung volumes with right evita-diaphragm elevation. -apnea link was preformed and showed o2 desaturation less than 88% for 178 minutes. Repeat apnea link on 2 L NC showed less than 90% desaturation 31 minutes. Patient will require nocturnal oxygen at 2 L NC. -SNIFF test ordered by pulmonology and was normal -repeat abg showed respiratory alkalosis -pulmonology was consulted and recs a appreciated (3) Parkinson's disease with dyskinesia and fluctuating manifestations: Code(s): G20.B2 - Parkinson's disease with dyskinesia, with fluctuations Status: Acute Assessment and Plan: - weakness may be manifestation/progression of Parkinson's - continue carbidopa-levodopa - fall precautions - PT/OT eval and treat - care coordination consult - feels she cannot safely care for him at home, care coordination consulted - was planning for discharge today to swing bed at [facility] or [place] however with acute mental status change patient will remain inpatient. (4) Essential (primary) hypertension: Code(s): I10 - Essential (primary) hypertension Status: Chronic Assessment and Plan: - chronic, currently 117/71 - continue home medications: Lisinopril 10 mg daily - monitor blood pressures (5) Urinary retention: Code(s): R33.9 - Retention of urine, unspecified Status: Acute Assessment and Plan: Patient required intermittent straight catheterization in the emergency room and again this morning. Straight cath yielded 750 mils. Patient did not have the urge to void and was able to empty his bladder independently. * Patient is on oxybutynin for overactive bladder. Urinary retention can occur with this medication. Hold for now. * Patient is also constipated so this could be contributing. Bowel regimen ordered. Added suppository for today. Gut decompression with also assist with lung expansion. * Added Flomax * Now that he has had a bowel movement we can discontinue the [place] catheter and attempt a void trial * Voiding spontaneously, check post void bladder scan (6) Bilateral lower extremity edema: Code(s): R60.0 - Localized edema Status: Acute Assessment and Plan: - patient also has bilateral lower extremity edema. Swelling has improved after a dose of IV Lasix but he has lower extremity calf discomfort. - suspect discomfort is from the swelling in his legs and immobility. is concerned about a blood clot. Less likely that a clot is present given his treatment with Eliquis but will order venous ultrasound to officially rule out. - Tylenol for pain control - history of diastolic grade 1 disfunction. Repeat ECHO with no real change. - lasix 20 mg daily Plan Diet: heart healthy GI Prophylaxis: not currently indicated DVT Prophylaxis: continue Eliquis Lines: peripheral Code Status: full code Subjective Date/time seen: 05/28/24 09:42 Interval history: No acute events overnight. However, this morning nursing called me to notify of an acute mental status change. Physical therapy was attempting to work with the patient but he was not responding. Initially he was very drowsy. For my exam he was alert but not answering questions. Normally he is orientated x 4. Exam was concerning for stroke so therefore a code stroke was called. Review of Systems Review of Systems: All systems reviewed & are unremarkable except as noted in HPI and below Exam Narrative: General: appears comfortable, in no acute distress, on 2 L NC Respiratory: breathing is unlabored with even chest rise/fall, lung sounds are diminished. Cardiovascular: Rate and rhythm regular, normal s1s2, no murmur Abdomen: Soft, round, non-tender, active bowel sounds Extremities: No cyanosis, +1 pitting edema to bilateral lower extremities, no clubbing. Pulses 2/2. Neuro: alert but gives intermittent 1 word responses, does not seem to follow neuro exam prompts. Bilateral upper extremities drift but do not hit the bed, bilateral lower extremities with no effort against gravity. Skin: Warm, dry, intact Objective Data Vital Signs Vital Signs: Vital Signs - 24 hr 05/27/24 14:00 05/27/24 21:19 05/27/24 20:00 Temperature 98 F 97.7 F Pulse Rate 74 75 Respiratory Rate 16 20 Blood Pressure 118/74 140/81 Pulse Oximetry 94 95 Oxygen Delivery Room Air Fraction of Inspired Oxygen 05/27/24 21:00 05/28/24 05:51 05/28/24 07:45 Temperature 98.3 F Pulse Rate 86 Respiratory Rate 20 Blood Pressure 139/80 Pulse Oximetry 95 96 92 Oxygen Delivery Room Air Room Air Fraction of Inspired Oxygen 05/28/24 07:45 Temperature Pulse Rate 80 Respiratory Rate 24 H Blood Pressure Pulse Oximetry Oxygen Delivery Fraction of Inspired Oxygen Intake/Output Intake/Output: Intake & Output 05/25/24 05/26/24 05/27/24 05/28/24 23:59 23:59 23:59 23:59 Intake Total 1490 1428 2348 450 Output Total 2500 1800 2950 Balance -1010 -372 -602 450 Meds/Results Medications: Active Medications Generic Name Dose Route Start Last Admin Trade Name Freq PRN Reason Stop Dose Admin Acetaminophen 650 mg 05/26/24 17:47 05/27/24 15:16 Acetaminophen 325 Mg Tablet PO 650 mg Q6H PRN Administration Mild Pain (1-3) or Fever Albuterol 2.5 mg 05/25/24 15:41 Albuterol Sulfate Neb 2.5 Mg/3 Ml Inh INHALATION Q4H PRN Wheezing Alprazolam 0.25 mg 05/25/24 21:10 05/27/24 20:45 Alprazolam (*Crx) 0.25 Mg Tablet PO 0.25 mg TID PRN Administration Anxiety Apixaban 5 mg 05/24/24 09:00 05/27/24 20:46 Apixaban 5 Mg Tablet PO 5 mg Q12HR [facility] Administration Ascorbic Acid 1,000 mg 05/24/24 09:00 05/27/24 08:41 Ascorbic Acid 500 Mg Tablet PO 1,000 mg DAILY [facility] Administration Aspirin 81 mg 05/24/24 21:00 05/27/24 20:45 Aspirin 81 Mg Enteric Tablet PO 81 mg HS [facility] Administration Atorvastatin Calcium 40 mg 05/24/24 21:00 05/27/24 20:46 Atorvastatin 40 Mg Tablet PO 40 mg HS [facility] Administration Brimonidine Tartrate 1 drop 05/24/24 09:00 05/27/24 20:51 Brimonidine Tartrate 0.2% Op Soln 5 Ml Btl EACH EYE 1 drop Q12HR [facility] Administration Carbidopa/Levodopa 3 tablet 05/26/24 16:00 05/27/24 20:45 Carbidopa/Levodopa 25/100 Mg Tablet PO 3 tablet QID@0800,1200,1600,2000 [facility] Administration Diclofenac Sodium 1 applic 05/24/24 09:00 05/27/24 20:53 Diclofenac Sodium 1% 100 Gm Gel (*Bkc) TOPICAL 1 applic QID [facility] Administration Duloxetine HCl 60 mg 05/24/24 09:00 05/27/24 08:41 Duloxetine Hcl 60 Mg Capsule.Dr PO 60 mg QAM [facility] Administration Ferrous Sulfate 325 mg 05/25/24 10:45 05/27/24 08:41 Ferrous Sulfate [address] PO 325 mg DAILY [facility] Administration Fluticasone/Umeclidinium/Vilanterol 1 puff 05/24/24 08:00 05/28/24 07:45 Fluticasone/Umeclidin/Vilanter 100-62.5-25 Mcg Ellipta INHALATION 1 puff DAILYRT [facility] Administration Folic Acid 0.4 mg 05/24/24 09:00 05/27/24 08:38 Folic Acid 0.4 Mg Tablet PO 0.4 mg DAILY [facility] Administration Lisinopril 10 mg 05/24/24 09:00 05/27/24 08:41 Lisinopril 10 Mg Tablet PO 10 mg DAILY [facility] Administration Loratadine 10 mg 05/24/24 09:00 05/27/24 08:41 Loratadine 10 Mg Tablet PO 10 mg QAM [facility] Administration Magnesium Oxide 400 mg 05/24/24 09:00 05/27/24 08:41 Magnesium Oxide 400 Mg Tablet PO 400 mg DAILY [facility] Administration Melatonin 5 mg 05/24/24 21:00 05/27/24 20:46 Melatonin 5 Mg Tablet PO 5 mg HS [facility] Administration Miscellaneous Information 0 each 05/25/24 00:01 05/28/24 01:58 Please Provide Directions For D-Mannose Administration XX 06/24/24 00:00 Not Given CLARIFY [facility] Multivitamins/Minerals 1 tab 05/24/24 09:00 05/27/24 08:41 Multivitamins /C Lutein (Centrum Silver) Tablet *Bkc PO 1 tab QAM [facility] Administration Non-Formulary Medication 500 mg 05/24/24 00:30 D-Mannose PO 06/23/24 00:29 DIRECTED [facility] Oxybutynin Chloride 5 mg 05/24/24 09:00 05/24/24 09:10 Oxybutynin Chloride Xl 5 Mg Tab.Er.24 PO 5 mg DAILY [facility] Administration Pantoprazole Sodium 40 mg 05/24/24 09:00 05/27/24 08:41 Pantoprazole 40 Mg Tablet PO 40 mg QAM [facility] Administration Perflutren Lipid Microsphere 0 ml 05/25/24 12:02 Perflutren Lipid Microspheres 1.5 Ml Vial Diluted To 10 Ml Total Volume IV PUSH 05/28/24 12:02 ONCE PRN adequate visualization Protocol Polyethylene Glycol 17 gm 05/24/24 11:30 05/27/24 08:41 Polyethylene Glycol 3350 17 Gm Powd.Pack PO 17 gm QAM [facility] Administration Pregabalin 150 mg 05/24/24 21:00 05/27/24 20:46 Pregabalin (*Crx) 75 Mg Capsule PO 150 mg HS [facility] Administration Quetiapine Fumarate 50 mg 05/24/24 09:00 05/27/24 20:45 Quetiapine Fumarate 25 Mg Tablet PO 50 mg Q12HR [facility] Administration Senna/Docusate Sodium 1 tab 05/24/24 21:00 05/27/24 20:45 Senna/Docusate Sodium Tablet PO 1 tab HS [facility] Administration Tamsulosin HCl 0.4 mg 05/25/24 10:45 05/27/24 08:41 Tamsulosin Hcl 0.4 Mg Capsule PO 0.4 mg QAM [facility] Administration Timolol Maleate 1 drop 05/24/24 09:00 05/27/24 20:51 Timolol Maleate 0.5% Op Soln 5 Ml Bottle EACH EYE 1 drop Q12HR [facility] Administration Tobramycin/Dexamethasone 1 applic 05/26/24 21:00 05/27/24 20:51 Tobramycin/Dexamethasone Op Oint 3.5 Gm Tube RIGHT EYE 1 applic 2100 [facility] Administration Vitamin B Complex/Vitamin C 1 each 05/24/24 09:00 05/27/24 08:39 Vitamin B Complex/Vit C Capsule PO 1 each DAILY [facility] Administration Radiology Results: ITS Impressions Chest X-Ray 05/23/24 13:06 IMPRESSION: No acute cardiopulmonary pathology. Chest CTA 05/23/24 18:49 IMPRESSION: No pulmonary embolism No aortic dissection. Extremely low lung volumes secondary to elevation of the right hemidiaphragm, unchanged from prior studies. Venous Doppler Study 05/25/24 14:24 IMPRESSION: 1. No deep venous thrombosis. Chest Fluoroscopy 05/25/24 14:58 IMPRESSION: 1. Small lung volumes with mild atelectasis at the lung bases. 2. Normal motion of the diaphragm. 3. Small left pleural effusion. Labs Labs: Laboratory Results - last 24 hr 05/28/24 05:58 WBC 8.0 RBC 4.56 L Hgb 12.1 L Hct 38.4 L MCV 84.2 MCH 26.5 MCHC 31.5 L RDW 14.8 H Plt Count 231 MPV 9.0 Immature Gran % (Auto) 0.3 Neut % (Auto) 86.6 H Lymph % (Auto) 7.4 L Pepin % (Auto) 4.0 Eos % (Auto) 1.4 Baso % (Auto) 0.3 Lymph # (Auto) 0.59 L Pepin # (Auto) 0.3 Eos # (Auto) 0.1 Baso # (Auto) 0.0 Abs Immat Gran (auto) 0.02 Absolute Neuts (auto) 6.9 H Absolute Nucleated RBC 0.000 Nucleated RBC % 0.0 Sodium 137 Potassium 4.3 Chloride 98 Carbon Dioxide 34 H Anion Gap 5 BUN 16 Creatinine 0.60 L Estim Creat Clear Calc 103 Estimated GFR > 60 Glucose 108 Calcium 8.9 Total Bilirubin 0.7 AST 31 ALT 6 Alkaline Phosphatase 81 Total Protein 7.0 Albumin 3.4 L Quality VTE Prophylaxis VTE prophylaxis: pharmacologic ordered
[2024-05-28] MEDS: CARBIDOPA/LEVODOPA 25/100 MG TABLET 3 TABLET PO ×4 (09:53→20:59)
[2024-05-28] MEDS: DULoxetine HCL 60 MG CAPSULE.DR PO (09:54)
[2024-05-28] MEDS: TAMSULOSIN HCL 0.4 MG CAPSULE PO (09:54)
[2024-05-28] MEDS: LORATADINE 10 MG TABLET PO (09:54)
[2024-05-28] MEDS: FERROUS SULFATE 325 MG TABLET DR PO (09:54)
[2024-05-28] MEDS: PANTOPRAZOLE 40 MG TABLET PO (09:54)
[2024-05-28] MEDS: MAGNESIUM OXIDE 400 MG TABLET PO (09:54)
[2024-05-28] MEDS: ASCORBIC ACID 500 MG TABLET 1000 MG PO (09:54)
[2024-05-28] MEDS: FOLIC ACID 0.4 MG TABLET PO (09:54)
[2024-05-28] MEDS: polyethylene glycoL 3350 17 GM POWD.PACK PO (09:54)
[2024-05-28] MEDS: lisinopriL 10 MG TABLET PO (09:54)
[2024-05-28] MEDS: APIXABAN 5 MG TABLET PO ×2 (09:54→20:58)
[2024-05-28] MEDS: MULTIVITAMINS /C LUTEIN (CENTRUM SILVER) TABLET *BKC 1 TAB PO (09:54)
[2024-05-28] MEDS: QUEtiapine FUMARATE 25 MG TABLET 50 MG PO ×2 (09:54→20:59)
[2024-05-28] MEDS: VITAMIN B COMPLEX/VIT C CAPSULE 1 EACH PO (09:54)
[2024-05-28] MEDS: ACETAMINOPHEN 325 MG TABLET 650 MG PO ×2 (10:14→21:00)
[2024-05-28] MEDS: BRIMONIDINE TARTRATE 0.2% OP SOLN 5 ML BTL 1 DROP EACH EYE ×2 (10:17→20:59)
[2024-05-28] MEDS: TIMOLOL MALEATE 0.5% OP SOLN 5 ML BOTTLE 1 DROP EACH EYE ×2 (10:17→20:59)
[2024-05-28] MEDS: DICLOFENAC SODIUM 1% 100 GM GEL (*BKC) 1 APPLIC TOPICAL ×4 (10:17→21:06)
--- NOTE | 2024-05-28 10:47 | PM.PNPUL ---
Progress Note: A&P Assessment and Plan (1) Respiratory failure with hypoxia: Code(s): J96.91 - Respiratory failure, unspecified with hypoxia Status: Acute Assessment and Plan: Patient with hypoxic respiratory failure with an ABG today of 7.43/47/67 on 3 L nasal cannula. There is no evidence of chronic hypercarbic respiratory failure that would qualify him for noninvasive ventilation. Patient has a history of Parkinson's disease with neurogenic bladder, decreased mobility now in wheelchair for the last 3 weeks, history of silent aspiration and history of hypoxemia. He has severe restrictive lung disease on his PFTs from 05/03/2024. He has chronic elevation of the right greater than left hemidiaphragm were since 10/08/2021. 05/24/2024: Overnight oximetry on 3 L nasal cannula. Recording duration 6 hours and 35 minutes. Average saturation 92%. Low saturation 86%. Time with saturation less than or equal to 88% was 30 minutes or 8% of the monitored time. Oxygen desaturation index was 0.6. 05/25/2024: I was able to turn the patient to room air and after 20 minutes his saturations remain 95%. Of note the patient has Parkinson's with a tremor and the plethysmography tracing needs to be verified to ensure that it is inaccurate reading. Sniff test shows normal motion of the diaphragms. Etiology of patient's hypoxemic respiratory failure include: atelectasis, mucous plugging, chronic aspiration, possible reactive airway disease or COPD, bowel positioning between liver and diaphragm. I doubt recurrent pulmonary embolism, pneumonia or fluid overload. Plan: The patient intermittently requires oxygen suggesting that atelectasis and/or mucus plugging is a likely factor. The patient has been mostly bed-bound with some areas of atelectasis in the lower lobes right greater than left. Patient should continue incentive spirometry q.2 hours while awake. I will order a Cornet flutter valve as well as EzPAP treatment 3 times a day. There is no evidence of lobar collapse or mucus plugging on the CT scan. The patient has previously been evaluated for aspiration and he likely has silent aspiration and has worked with speech therapy previously. There is no evidence of chronic interstitial lung disease secondary to aspiration. The patient had a therapeutic benefit from trelegy inhaler prescribed as an outpatient. I will continue his trelegy inhaler 100. I will discontinue nebulized albuterol at this time. I will continue his Eliquis 5 q.12 for his prior history of PE. patient has a history of constipation and this is managed by hospitalists team. Since his oxygenation appears to have improved now, I will order another ApneaLink on room air tonight to determine if he still qualifies for oxygen at night. If the patient is overnight oximetry on room air demonstrates time with saturation less than or equal to 88% at less than 5 minutes he can be discharged without any supplemental oxygen at night. If her time with saturation less than or equal to 88% is greater than 5 minutes the test should be repeated on supplemental oxygen and repeat overnight oximetry should be performed to verify that time with saturation less than or equal to 88% becomes less than 5 minutes. Inpatient pulmonary consult services will resume on 05/28/2024. Discussed with Suzanna Allen, and the on speaker phone. Will follow with you. 05/28/2024: Earlier today room air saturations were 96%. Patient intermittently stopped answering questions and a code stroke was called. CT scan of the head was negative. Neurology is following. Patient has Kenny-Brandt respirations on physical exam. White blood cell count 9.0, creatinine 0.6. During the code stroke patient was placed on 3 L nasal cannula saturations 95%. Overnight oximetry on 2 L nasal cannula with recording duration 5 hours and 42 minutes, average saturation 92%. Low saturation 90%. Time with saturation less than or equal to 88% was 0 minutes, oxygen desaturation index was 0. Plan: Patient appears in no respiratory distress. Kenny-Brandt respirations indicate likely neurologic issue as his recent echocardiogram with normal LVEF. Will wean his oxygen to room air with goal saturation 90-94%. I will check an ABG to assess for hypercarbia. Continue trelegy 100, Cornet flutter valve, incentive spirometry, and EzPAP treatment. Continue 2 L nasal cannula at night. Patient with altered mental status and what appears to be an expressive aphasia. He did receive Xanax 0.25 last night, hold. Neurology has been involved and has ordered an EEG. Carotid Dopplers ordered. (2) Restrictive lung disease: Code(s): J98.4 - Other disorders of lung Status: Acute Assessment and Plan: Patient has a long history of small lung volume with elevated diaphragms. Chest x-rays dating back to 01/19/2013 shows small lung volumes there appeared to be an acute worsening between 03/18/2021 and 10/08/2021 with worsening elevation of the bilateral hemidiaphragms right greater than left. PFTs with severe restrictive abnormality on 05/03/2024 with no evidence of interstitial lung disease on his recent CT scans. Progressive Parkinson's can cause chest wall muscle rigidity contributing to his restrictive abnormality. Patient with constipation and his intestines are between his liver and his right hemidiaphragm. agree with continued treatment for constipation. Plan: Continued optimization of his Parkinson's treatment. Currently on carbidopa levodopa 25-100 at 3 tablets 4 times a day. Hospitalist managing constipation. Patient has a Valdez also for his neurogenic bladder. 05/28/24: Patient was voiding on his own. Patient with altered mental status and what appears to be an expressive aphasia. He did receive Xanax 0.25 last night. As above code stroke called. Plan: Neurology has been involved and has ordered an EEG. Carotid Dopplers ordered. Subjective Date/time seen: 05/28/24 10:47 Interval history: 05/25/2024: This is a new pulmonary consult for hypoxia. 74-year-old with a history of Parkinson's, pulmonary embolism in December of 2023 on Xarelto, coronary artery disease status post stent, hypertension, neurogenic bladder. patient is followed in the Pulmonary Clinic and was last seen on 05/11/2024. This was a follow-up visit for from 03/20/2024. He was given a therapeutic trial of trelegy and he had improved on 05/11/2024. He had no longer coughing spells shortness of breath was better and his oxygenation had improved. Previously was admitted to [facility] and there were concerns that his Parkinson's had worsened. He had a history of neurogenic bladder, his activity had decreased, he had silent aspiration and had taken 2 antibiotics in 3 steroid since December of 2023.. 10/07/2020 after bronchodilator 05/03/2024 newest after BD FVC 2.64L, 55% NONE 1.97 L, 43% 1.67 L, 36%, -15 FEV1 1.98L, 56% 1.568 L, 48% 1.37 L, 40%, -12 FEV1/FVC 75% 79% 82% ONI16-38% 1.64 L, 64 % 1.49 L, 62% 1.66 L, 69%, +12 TLC 4.99, 64 % 5.46 L, 70% RV 2.14 L, 79% 2.13 L, 78% ERV RV/TLC 43% 39% DLCO 18.6, 68% 15.5, 59% DLCO/VA 4.28, 117% 5.38, 153% most recent PFTs on 05/03/2024 demonstrated a severe restrictive abnormality. On review of prior radiographs, patient has a long history of small lung volume with elevated diaphragms. Chest x-rays dating back to 01/19/2023 shows small lung volumes there appeared to be an acute worsening between 03/18/2021 and 10/08/2021 with worsening elevation of the bilateral hemidiaphragms right greater than left. I spoke to the and 2 years ago the patient was thought to have a mini-stroke but in fact it was Parkinson's disease. Ever since that time she states the patient has not been taking deep breaths. She tells me last week he was able to walk. He has been walking in rehab and around the house. She does not routinely measure his pulse oximetry. On 05/23/2024 patient presented to [facility] Emergency Room for generalized weakness and hypoxia. room air saturations were 89% and saturations were 94% on [address] angiogram of the chest showed no pulmonary embolism, no aortic dissection and low lung volumes with an elevated right hemidiaphragm. There is no evidence of interstitial lung disease, masses or pleural disease. 05/24/2024: Overnight oximetry on 3 L nasal cannula. Recording duration 6 hours and 35 minutes. Average saturation 92%. Low saturation 86%. Time with saturation less than or equal to 88% was 30 minutes or 8% of the monitored time. Oxygen desaturation index was 0.6. 05/25/2024: Patient with continued oxygen requirements of 3 L and had an ABG of 7.43/47/67 and I was consulted. currently the patient denies any shortness of breath, fever, chills, rigors, cough, phlegm production, chest tightness or hemoptysis. He tells me that his Parkinson's is getting worse and he told me he has not walked and 1-2 months but the said he had been walking up until 6 days ago. To his knowledge ease never worn oxygen previously. When I enter the room the patient was on 3 L nasal cannula saturations 94%. I turned him to room air and after 21 minutes his saturations were 95%. I watched the patient do incentive spirometry and he was pulling [id number] mL. Inpatient Pulmonary consult services will resume on 05/28/2024. 05/26/24: Overnight oximetry on room air: Recording duration 6 hours and 44 minutes. Average saturation 89%. Low saturation 77%. Time with saturation less than or equal to 88% was 178 minutes. Oxygen desaturation index 4.2. 05/28/2024: Earlier today room air saturations were 96%. Patient intermittently stopped answering questions and a code stroke was called. CT scan of the head was negative. Neurology is following. Patient has Kenny-Brandt respirations on physical exam. White blood cell count 9.0, creatinine 0.6. Overnight oximetry on 2 L nasal cannula with recording duration 5 hours and 42 minutes, average saturation 92%. Low saturation 90%. Time with saturation less than or equal to 88% was 0 minutes, oxygen desaturation index was 0. DATA: 05/25/24: EXAMINATION: XR sniff test with CXR2V DATE: 05/25/2024 14:48 INDICATION: Elevated right hemidiaphragm. TECHNIQUE: Frontal and lateral views of the chest were obtained. I performed fluoroscopy of the chest while the patient performed normal breathing, deep respiration, and forceful sniffing. The number of fluoroscopy images was 904. The fluoroscopy time was 0.5 minutes. COMPARISON: Chest CT 05/23/2024, chest 2 views 05/23/2024 FINDINGS: CHEST TWO VIEWS: The lung volumes are small. There is mild relative elevation of right hemidiaphragm. There is mild atelectasis at the lung bases. There is a small left pleural effusion. No pneumothorax. The heart size is normal. SNIFF TEST: There is normal and symmetric motion of the right and left sides of the diaphragm. IMPRESSION: 1. Small lung volumes with mild atelectasis at the lung bases. 2. Normal motion of the diaphragm. 3. Small left pleural effusion. 05/23/24: EXAMINATION: CTA chest PE protocol INDICATION: Shortness of breath, pulmonary embolus suspected clinically COMPARISON: 03/23/2024 and 11/29/2023 FINDINGS: No filling defect is identified within the main or proximal pulmonary arteries. Extremely low lung volumes are detected secondary to elevation of the right hemidiaphragm (unchanged from prior). The thoracic aorta is unremarkable, without aneurysmal dilatation or dissection. The lungs demonstrate pulmonary vascular crowding, but are unremarkable. Within the upper abdomen: Significant elevation of the right hemidiaphragm. The gallbladder is only minimally distended but otherwise unremarkable. The bilateral kidneys are without calcified stones. IMPRESSION: No pulmonary embolism No aortic dissection. Extremely low lung volumes secondary to elevation of the right hemidiaphragm, unchanged from prior studies. 05/03/24: This is a pulmonary function test with pre and post-bronchodilator spirometry, plethysmography and diffusing capacity. The test was performed and results interpreted in accordance with the 2019 and 2005 ATS/ERS Task Force guidelines respectively using the Global Lung Function Initiative-2012 reference equations. Patient demonstrated good effort and cooperation. Reproducibility criteria were met. The quality of the pre bronchodilator spirometry maneuver was Grade B and post bronchodilator spirometry maneuver was Grade B. Of note, patient has Parkinson's disease and did all testing to the best of his ability. Findings: Spirometry: The contour the inspiratory and expiratory flow tracing are normal. The pre bronchodilator FVC is 1.97 L, 43% predicted. The pre bronchodilator FEV1 is 1.56 L, 46% predicted. The pre bronchodilator FEV1: FVC ratio 79%. The post bronchodilator FVC is 1.67 L, representing a 15% decrease. The post bronchodilator FEV1 is 1.37 L, representing a 12% decrease. The post bronchodilator FEV1: FVC ratio is 82%. Plethysmography: The total lung capacity is 5.46 L, 70% predicted. The functional residual capacity is 2.15 L, 50% predicted. The residual volume is 2.13 L, 76% predicted. Diffusing capacity: The diffusing capacity unadjusted for hemoglobin and carboxyhemoglobin is 15.5, 59% predicted. Diffusing capacity adjusted for alveolar volume is 5.38, 153% predicted. Impression: There is a severe restrictive ventilatory abnormality. The spirometry is normal without evidence of an obstructive abnormality. There is a significant decrease in the post bronchodilator FVC and FEV1 consistent with a possible paradoxical bronchoconstriction after inhaled albuterol. Clinical correlation is recommended. The diffusing capacity unadjusted for hemoglobin and carboxyhemoglobin is moderately decreased and is increased when adjusted for alveolar volume. 03/23/2024: EXAMINATION: CT diagnostic chest wo con DATE: 03/23/2024 14:20 INDICATION: R05.3 - Chronic cough TECHNIQUE: Computed tomography (CT) of the chest was performed without intravenous contrast. Additional 3D reconstructions utilizing coronal maximum intensity projection (MIP) were performed. Automated exposure control and iterative reconstruction technique were employed. The dose-length product was 371.21 mGy-cm. COMPARISON: 11/29/2023 FINDINGS: There is elevation right hemidiaphragm with mild right basilar atelectasis. Unchanged band of discoid atelectasis/scarring in the right lower lobe. There are couple unchanged 3-4 mm nodules at the peripheral left upper lobe consistent with old granulomatous disease. No pneumonia, pulmonary edema, pleural effusion and pneumothorax. Heart size is normal. Atherosclerotic coronary artery calcifications. No pericardial effusion. Thoracic aorta is normal in caliber. No pathologically enlarged thoracic lymphadenopathy. Severe lower cervical and upper thoracic spondylosis. Moderate spondylosis in the mid to lower thoracic spine with chronic mild anterior wedging at T9. Unchanged lucent T10 hemangioma. IMPRESSION: 1. Chronic elevation the right lower lobe with atelectasis/scarring at the right lung base and right lower lobe. No acute cardiopulmonary disease. Review of Systems Review of Systems: ROS unobtainable: Yes unobtainable due to medical condition Exam Const: General: cooperative, comfortable and no acute distress HENMT: Head: normal to inspection Ears: hearing grossly normal bilaterally Eyes: General: appearance normal, both eyes and all related structures Neck: Neck: normal visual inspection Chest: Chest palpation & inspection: normal inspection of the chest Resp: Effort & Inspection: normal respiratory effort and able to speak in complete sentences Auscultation: crackles, no rales, no rhonchi, no wheezes and lung sounds not diminished Other: Few basilar crackles. Cardio: Jugular venous distension: no JVD GI: Inspection: normal to inspection Skin: General skin exam: normal color Neuro: General: oriented to person, oriented to place and oriented to time Extrem: General: normal to inspection and edema Psych: Appearance: grossly normal Objective Data Vital Signs Vital Signs: Vital Signs - 24 hr 05/27/24 14:00 05/27/24 21:19 05/27/24 20:00 Temperature 36.6 C 36.5 C Pulse Rate 74 75 Respiratory Rate 16 20 Blood Pressure 118/74 140/81 Pulse Oximetry 94 95 Oxygen Delivery Room Air Oxygen Flow Rate Fraction of Inspired Oxygen 05/27/24 21:00 05/28/24 05:51 05/28/24 07:45 Temperature 36.8 C Pulse Rate 86 Respiratory Rate 20 Blood Pressure 139/80 Pulse Oximetry 95 96 92 Oxygen Delivery Room Air Room Air Oxygen Flow Rate Fraction of Inspired Oxygen 21 05/28/24 07:45 05/28/24 09:48 05/28/24 10:14 Temperature 37.5 C 37.5 C Pulse Rate 80 97 Respiratory Rate 24 H 22 H Blood Pressure 162/80 H Pulse Oximetry 95 Oxygen Delivery Nasal Cannula Oxygen Flow Rate 3 Fraction of Inspired Oxygen Intake/Output Intake/Output: Intake & Output 05/25/24 05/26/24 05/27/24 05/28/24 23:59 23:59 23:59 23:59 Intake Total 1490 1428 2348 450 Output Total 2500 1800 2950 [id number] -372 -602 450 Meds/Results Medications: Active Medications Generic Name Dose Route Start Last Admin Trade Name Freq PRN Reason Stop Dose Admin Acetaminophen 650 mg 05/26/24 17:47 05/28/24 10:14 Acetaminophen 325 Mg Tablet PO 650 mg Q6H PRN Administration Mild Pain (1-3) or Fever Albuterol 2.5 mg 05/25/24 15:41 Albuterol Sulfate Neb 2.5 Mg/3 Ml Inh INHALATION Q4H PRN Wheezing Alprazolam 0.25 mg 05/25/24 21:10 05/27/24 20:45 Alprazolam (*Crx) 0.25 Mg Tablet PO 0.25 mg TID PRN Administration Anxiety Apixaban 5 mg 05/24/24 09:00 05/28/24 09:54 Apixaban 5 Mg Tablet PO 5 mg Q12HR KOFI Administration Ascorbic Acid 1,000 mg 05/24/24 09:00 05/28/24 09:54 Ascorbic Acid 500 Mg Tablet PO 1,000 mg DAILY KOFI Administration Aspirin 81 mg 05/24/24 21:00 05/27/24 20:45 Aspirin 81 Mg Enteric Tablet PO 81 mg HS KOFI Administration Atorvastatin Calcium 40 mg 05/24/24 21:00 05/27/24 20:46 Atorvastatin 40 Mg Tablet PO 40 mg HS KOFI Administration Brimonidine Tartrate 1 drop 05/24/24 09:00 05/28/24 10:17 Brimonidine Tartrate 0.2% Op Soln 5 Ml Btl EACH EYE 1 drop Q12HR KOFI Administration Carbidopa/Levodopa 3 tablet 05/26/24 16:00 05/28/24 09:53 Carbidopa/Levodopa 25/100 Mg Tablet PO 3 tablet QID@0800,1200,1600,2000 KOFI Administration Diclofenac Sodium 1 applic 05/24/24 09:00 05/28/24 10:17 Diclofenac Sodium 1% 100 Gm Gel (*[facility]) TOPICAL 1 applic QID KOFI Administration Duloxetine HCl 60 mg 05/24/24 09:00 05/28/24 09:54 Duloxetine Hcl 60 Mg Capsule.Dr PO 60 mg QAM KOFI Administration Ferrous Sulfate 325 mg 05/25/24 10:45 05/28/24 09:54 Ferrous Sulfate [address] PO 325 mg DAILY KOFI Administration Fluticasone/Umeclidinium/Vilanterol 1 puff 05/24/24 08:00 05/28/24 07:45 Fluticasone/Umeclidin/Vilanter 100-62.5-25 Mcg Ellipta INHALATION 1 puff DAILYRT KOFI Administration Folic Acid 0.4 mg 05/24/24 09:00 05/28/24 09:54 Folic Acid 0.4 Mg Tablet PO 0.4 mg DAILY KOFI Administration Lisinopril 10 mg 05/24/24 09:00 05/28/24 09:54 Lisinopril 10 Mg Tablet PO 10 mg DAILY KOFI Administration Loratadine 10 mg 05/24/24 09:00 05/28/24 09:54 Loratadine 10 Mg Tablet PO 10 mg QAM KOFI Administration Magnesium Oxide 400 mg 05/24/24 09:00 05/28/24 09:54 Magnesium Oxide 400 Mg Tablet PO 400 mg DAILY KOFI Administration Melatonin 5 mg 05/24/24 21:00 05/27/24 20:46 Melatonin 5 Mg Tablet PO 5 mg HS KOFI Administration Miscellaneous Information 0 each 05/25/24 00:01 05/28/24 01:58 Please Provide Directions For D-Mannose Administration XX 06/24/24 00:00 Not Given CLARIFY KOFI Multivitamins/Minerals 1 tab 05/24/24 09:00 05/28/24 09:54 Multivitamins /C Lutein (Centrum Silver) Tablet *Bkc PO 1 tab QAM KOFI Administration Non-Formulary Medication 500 mg 05/24/24 00:30 D-Mannose PO 06/23/24 00:29 DIRECTED KOFI Oxybutynin Chloride 5 mg 05/24/24 09:00 05/24/24 09:10 Oxybutynin Chloride Xl 5 Mg Tab.Er.24 PO 5 mg DAILY KOFI Administration Pantoprazole Sodium 40 mg 05/24/24 09:00 05/28/24 09:54 Pantoprazole 40 Mg Tablet PO 40 mg QAM KOFI Administration Perflutren Lipid Microsphere 0 ml 05/25/24 12:02 Perflutren Lipid Microspheres 1.5 Ml Vial Diluted To 10 Ml Total Volume IV PUSH 05/28/24 12:02 ONCE PRN adequate visualization Protocol Polyethylene Glycol 17 gm 05/24/24 11:30 05/28/24 09:54 Polyethylene Glycol 3350 17 Gm Powd.Pack PO 17 gm QAM KOFI Administration Pregabalin 150 mg 05/24/24 21:00 05/27/24 20:46 Pregabalin (*Crx) 75 Mg Capsule PO 150 mg HS KOFI Administration Quetiapine Fumarate 50 mg 05/24/24 09:00 05/28/24 09:54 Quetiapine Fumarate 25 Mg Tablet PO 50 mg Q12HR KOFI Administration Senna/Docusate Sodium 1 tab 05/24/24 21:00 05/27/24 20:45 Senna/Docusate Sodium Tablet PO 1 tab HS KOFI Administration Tamsulosin HCl 0.4 mg 05/25/24 10:45 05/28/24 09:54 Tamsulosin Hcl 0.4 Mg Capsule PO 0.4 mg QAM KOFI Administration Timolol Maleate 1 drop 05/24/24 09:00 05/28/24 10:17 Timolol Maleate 0.5% Op Soln 5 Ml Bottle EACH EYE 1 drop Q12HR KOFI Administration Tobramycin/Dexamethasone 1 applic 05/26/24 21:00 05/27/24 20:51 Tobramycin/Dexamethasone Op Oint 3.5 Gm Tube RIGHT EYE 1 applic 2100 KOFI Administration Vitamin B Complex/Vitamin C 1 each 05/24/24 09:00 05/28/24 09:54 Vitamin B Complex/Vit C Capsule PO 1 each DAILY KOFI Administration Radiology Results: ITS Impressions Chest X-Ray 05/23/24 13:06 IMPRESSION: No acute cardiopulmonary pathology. Chest CTA 05/23/24 18:49 IMPRESSION: No pulmonary embolism No aortic dissection. Extremely low lung volumes secondary to elevation of the right hemidiaphragm, unchanged from prior studies. Venous Doppler Study 05/25/24 14:24 IMPRESSION: 1. No deep venous thrombosis. Chest Fluoroscopy 05/25/24 14:58 IMPRESSION: 1. Small lung volumes with mild atelectasis at the lung bases. 2. Normal motion of the diaphragm. 3. Small left pleural effusion. Head CT 05/28/24 09:42 Impression: No acute intracranial abnormality seen. Case discussed with Miladis Allen at 9:45 AM on 05/28/2024. Labs Labs: Laboratory Results - last 24 hr 05/28/24 05:58 WBC 8.0 RBC 4.56 L Hgb 12.1 L Hct 38.4 L MCV 84.2 MCH 26.5 MCHC 31.5 L RDW 14.8 H Plt Count 231 MPV 9.0 Immature Gran % (Auto) 0.3 Neut % (Auto) 86.6 H Lymph % (Auto) 7.4 L Curry % (Auto) 4.0 Eos % (Auto) 1.4 Baso % (Auto) 0.3 Lymph # (Auto) 0.59 L Curry # (Auto) 0.3 Eos # (Auto) 0.1 Baso # (Auto) 0.0 Abs Immat Gran (auto) 0.02 Absolute Neuts (auto) 6.9 H Absolute Nucleated RBC 0.000 Nucleated RBC % 0.0 Sodium 137 Potassium 4.3 Chloride 98 Carbon Dioxide 34 H Anion Gap 5 BUN 16 Creatinine 0.60 L Estim Creat Clear Calc 103 Estimated GFR > 60 Glucose 108 Calcium 8.9 Total Bilirubin 0.7 AST 31 ALT 6 Alkaline Phosphatase 81 Total Protein 7.0 Albumin 3.4 L
[2024-05-28 10:56] LABS: Glucose Point of Care 103 mg/dl (65-105)
[2024-05-28 11:19] LABS: Alveolar/Arterial O2 Gradient 53.5 mmHg; Base Excess ABG 4.3 mEq/l (+/-2.0); Fractional Inspired Oxygen 21 %; HCO3 ABG 27.2 mEq/l (22.0-26.0); Oxygen Content ABG 16.7 %vol (16.0-22.0); Oxygen Saturation ABG 91.1 % (95.0-100.0); PCO2 ABG 35.2 mmHg (35.0-45.0); PO2 ABG 54.1 mmHg (80.0-100.0); PO2 FiO2 Ratio Arterial Blood 2.58 %; Total Hemoglobin 13.4 g/dL (12.0-18.0)
[2024-05-28 11:21] LABS: Device ROOM AIR; Modified Allen's Test Pass; Site Drawn RIGHT RADIAL
[2024-05-28 11:32] LABS: pH ABG 7.506 (7.350-7.450)
--- NOTE | 2024-05-28 12:55 | PCOTNOTE ---
Per RN, Patient will be having testing done this P.M., unavailable for therapy services. Check back tomorrow.
--- NOTE | 2024-05-28 14:05 | ECG_ITS ---
Test Date: 2024-05-28 14:46:18 Measurements Intervals [place] Rate: 79 P: 28 NC: 170 QRS: -3 QRSD: 97 T: 28 QT: 367 QTc: 421 Interpretive Statements SINUS RHYTHM EARLY PRECORDIAL R/S TRANSITION NONSPECIFIC T-WAVE ABNORMALITY- INF/HIGH LAT LEADS BASELINE WANDER- II, III, AVL, AVF, V4-V6 BORDERLINE ECG Compared to ECG 05/23/2024 12:17:56 NO SIGNIFICANT CHANGE Electronically Signed On 05-28-2024 14:56:20 MEDICAL REPRESENTATIVE by Yusuf Deluca D.O.
[2024-05-28 15:24] LABS: Troponin I 0.019 ng/mL (0.000-0.034)
--- NOTE | 2024-05-28 18:16 | WPDNEUROLOGY ---
Neurology EEG Report General Information Date of Study: 05/28/24 TEST Electroencephalogram DIAGNOSIS sudden episode of change in mental status CONDITION OF RECORDING bedside recording EEG NUMBER [id number] CLINICAL HISTORY history of Parkinson's disease, sudden change in mental status EEG DESCRIPTION At the beginning of the recording the background activity consists of predominant theta activity at 6-7 hertz with an amplitude of 15-30 microvolts. Anteriorly low amplitude mixed frequency activity was seen. There is mild anteroposterior gradient however patient was described as being drowsy or sleep. Hyperventilation or Photic stimulation was not performed. EKG tracing shows ventricular ectopic beats after every 3rd beat during the recording. Stage 2 sleep was not recorded. IMPRESSION This is an essentially normal EEG considering drowsy state of the patient. A normal alpha rhythm was not seen however no focal or paroxysmal epileptiform abnormalities were seen. EKG tracing shows ventricular ectopic beats after a 3 regular beats and if clinically relevant further for evaluation should be considered
--- NOTE | 2024-05-28 18:26 | P.CONNEU_ITS ---
Assessment and Plan Assessment and plan (1) Altered mental status: Code(s): R41.82 - Altered mental status, unspecified Status: Acute Assessment and Plan: The patient has a transient change in mental status. I learned later on that he improved later on during the day. Hence this will be considered a transient event. Differential diagnosis include transient ischemic attack or partial complex seizure or cardiac arrhythmia some sort. He had a CT angiogram of the head and neck done in March which did not show any significant narrowing. CT scan of brain was performed today which also did not show any abnormalities. I have reviewed the films and agree with the findings. Carotid Doppler study was performed which did not show any significant abnormalities. EEG was performed which shows essentially normal finding considering that he was asleep through the most of the recording. Although he did not progress to stage 2 sleep. He has shown some ventricular ectopic beats. The possibly postictal state could be a consideration. However since this is single spell a definite conclusion is not made yet and hence he should be observed with neurological observations at Q 4 hourly. Cardiac monitoring is in progress. Echocardiogram is recommended. Neurology will follow. (2) Parkinson's disease: Code(s): G20.A1 - Parkinson's disease without dyskinesia, without mention of fluctuations Status: Acute Assessment and Plan: The patient is currently on Sinemet 25/100, 3 tablets 4 times a day and appears to be stable according to his . He may continue the same for now. (3) CAD (coronary artery disease): Qualifiers: Coronary Disease-Associated Artery/Lesion type: unspecified vessel or lesion type [place] vs. transplanted heart: [place] heart Associated angina: with unspecified form of angina Qualified Code(s): I25.119 - Atherosclerotic heart disease of [place] coronary artery with unspecified angina pectoris Code(s): I25.10 - Atherosclerotic heart disease of [place] coronary artery without angina pectoris Status: Acute Plan Continue observation for any other neurologic changes and a follow-up cardiac rhythm and echocardiogram. Consult date: 05/28/24 HPI: Joe Wellington is a 74 year old male with history of Parkinson's disease suddenly developed in change in mental status this morning. A code stroke was called in view of the sudden change. I happened to be nearby and came to see him. Patient has eyes opened and was able to talk but did not make much sense. When I last he told me he is 25 years old. He could not name 5 colors. He was slow to respond. Not tell me his current location. I happen to come back and see him again after an hour so he was slightly better but still not quite back to normal self. According to his he normally can talk and does not have any memory problems. He regularly takes his medication Parkinson disease and has been controlled medications. He follows up with a neurologist in [place]. Patient was admitted to the hospital on 05/23/2024 with generalized weakness and headaches. He also history of chronic pain, coronary artery disease with stenting, hypertension. He lives at home with his . Review of Systems Review of Systems: ROS unobtainable: Yes unobtainable due to mental status [facility] Past Medical History Medical History (Updated 05/28/24 @ 13:46 by Miladis Allen APRN) Actinic keratoses Chronic pain syndrome Pain pump. Coffee ground emesis Colon cancer screening Coronary artery disease Depression Essential (primary) hypertension Fracture of lumbar spine Gait abnormality Gastritis due to nonsteroidal anti-inflammatory drug History of seizure Attributed to tramadol. Low back pain Myocardial infarction Neurogenic bladder OAB OAB (overactive bladder) Parkinson's disease Parkinson's disease with dyskinesia and fluctuating manifestations Parkinsonism Pelvic fracture Reflux esophagitis Restrictive lung disease Traumatic brain injury Urethral stricture Surgical History Surgical History History of appendectomy History of cardiac catheterization 03/13/2020, 03/20/2021, 09/11/2021 History of cholecystectomy History of coronary artery stent placement History of dilation of urethra History of esophagogastroduodenoscopy (EGD) History of lumbar surgery History of partial colectomy History of tonsillectomy Status post glaucoma surgery Family History Family History Mother Diabetes mellitus Patient's mother is Father Patient's father is Sibling Breast cancer Cancer Son Thyroid cancer Melanoma Social History Social History Social History: Surrogate medical decision maker: Madan Wellington (son) or Stefanie Wellington (spouse). Code status: Full code. Smoking packs per day: 0.5 Smoking cigarettes per day: 10.0 Years smoked: 1 Smoking pack-years: 0.50 Smoking status: Never smoker Tobacco type: cigarettes Second hand tobacco smoke exposure: No Smoking end date: 07/11/69 Alcohol intake: never Substance use: never Substance use type: does not use Last use: quit drinking about a year ago when started on Parkinson's med Do You Feel Safe in your Home?: Yes Lack of Transportation: No Lack of Food: Never True Current Housing: I Have Housing Concerned About Future Housing: No Difficulty Paying Gas/Electric Bills: No Difficulty Paying for Meds: No Currently Unemployed: No Education: Bachelor's Degree Difficulty w/ Childcare or Family Care: No Living arrangements: with family Spiritual care concerns: No Meds Home Medications and Allergies Home Medications Medication Instructions Recorded Confirmed Type pregabalin 150 mg capsule (Lyrica) 150 mg PO HS 03/12/20 05/23/24 History carbidopa 25 mg-levodopa 100 mg 3 tablet PO QID 11/14/22 05/23/24 History tablet ascorbic acid (vitamin C) 1,000 mg 1 g PO DAILY 12/14/23 05/23/24 History tablet aspirin 81 mg tablet,delayed 81 mg PO HS 12/14/23 05/23/24 History release d-mannose 500 mg capsule 500 mg PO USEASDIRECTD 12/14/23 05/23/24 History apixaban 5 mg tablet (Eliquis) 5 mg PO BID #180 tabs 01/10/24 05/23/24 Rx duloxetine 60 mg capsule,delayed 60 mg PO QAM 03/14/24 05/23/24 History release B-complex with vitamin C 1 tablet PO DAILY 04/09/24 05/23/24 History atorvastatin 40 mg tablet 40 mg PO HS 04/09/24 05/23/24 History cetirizine 10 mg tablet 10 mg PO DAILY 04/09/24 05/23/24 History cranberry extract 500 mg tablet 500 mg PO DAILY 04/09/24 05/23/24 History diclofenac sodium 1 % topical gel 2 g topical QID 04/09/24 05/23/24 History magnesium oxide 400 mg (241.3 mg 400 mg PO DAILY 04/09/24 05/23/24 History magnesium) tablet melatonin 5 mg PO HS 04/09/24 05/23/24 History mv-folic acid 200 mcg-D3 300 1 tablet PO DAILY 04/09/24 05/23/24 History unit-K2 20 [id number] tablet (Stages Men's Multi-Vitamin) tobramycin-dexamethasone 0.3 %-0.1 1 applic RIGHT EYE DAILY 04/09/24 05/23/24 History % eye ointment (TobraDex) brimonidine 0.2 %-timolol 0.5 % 1 drp EACH EYE BID 04/24/24 05/23/24 History eye drops lisinopril 10 mg tablet 10 mg PO DAILY 04/24/24 05/23/24 History quetiapine 50 mg tablet (Seroquel) 50 mg PO BID #60 tabs 05/18/24 05/23/24 Rx fluticasone fur. 100 mcg-umeclid 1 inh inhalation DAILY 05/23/24 05/23/24 History 62.5 mcg-vilant 25 mcg inhalat.powder (Trelegy Ellipta) oxybutynin chloride 5 mg 10 mg PO DAILY 05/23/24 05/23/24 History tablet,extended release 24 hr pantoprazole 20 mg tablet,delayed 40 mg PO QAM 05/23/24 05/23/24 History release (Protonix) alprazolam 0.25 mg tablet 0.25 mg PO TID PRN Anxiety 05/25/24 05/25/24 History Allergies Allergy/AdvReac Type Severity Reaction Status Date / Time tramadol Allergy Mild SEIZURE Verified 05/11/24 11:15 Beta-Blockers AdvReac Anxiety Verified 05/11/24 11:15 (Beta-Adrenergic Bloc ticagrelor [From Brilinta] AdvReac Dyspnea / Verified 05/11/24 11:15 SOB Vital Signs Vital Signs - 24 hr 05/27/24 21:19 05/27/24 20:00 05/27/24 21:00 Temperature 97.7 F Pulse Rate 75 Respiratory Rate 20 Blood Pressure 140/81 Pulse Oximetry 95 95 Oxygen Delivery Room Air Room Air Oxygen Flow Rate Fraction of Inspired Oxygen 05/28/24 05:51 05/28/24 07:45 05/28/24 07:45 Temperature 98.3 F Pulse Rate 86 80 Respiratory Rate 20 24 H Blood Pressure 139/80 Pulse Oximetry 96 92 Oxygen Delivery Room Air Oxygen Flow Rate Fraction of Inspired Oxygen 21 05/28/24 09:48 05/28/24 10:14 05/28/24 11:20 Temperature 99.5 F 99.5 F 98.4 F Pulse Rate 97 Respiratory Rate 22 H Blood Pressure 162/80 H Pulse Oximetry 95 Oxygen Delivery Nasal Cannula Oxygen Flow Rate 3 Fraction of Inspired Oxygen 05/28/24 08:00 05/28/24 14:00 05/28/24 12:00 Temperature 98.2 F Pulse Rate 88 106 H Respiratory Rate 16 Blood Pressure 113/66 Pulse Oximetry 93 90 Oxygen Delivery Nasal Cannula Oxygen Flow Rate 2 Fraction of Inspired Oxygen 05/28/24 16:00 Temperature Pulse Rate 76 Respiratory Rate Blood Pressure Pulse Oximetry Oxygen Delivery Oxygen Flow Rate Fraction of Inspired Oxygen Exam Narrative: Patient appears alert but did not answer to many of the questions and slow to respond. When asked his age he told Ms. 25. 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 She does not appear to her aphasia but initially was noted to have some dysarthria. Visual [place] by confrontation appeared normal. No clear facial asymmetry tongue was midline. System normal power and both upper and lower limbs. Mild cogwheeling but no significant stiffness or rigidity was noted since he was in grossly intact. Deep tendon reflexes did not show any significant asymmetry pre Results Labs 05/28/24 05:58 05/28/24 05:58 Labs: Short CBC 05/28/24 Range/Units 05:58 WBC 8.0 (4.5-10.0) K/mm3 Hgb 12.1 L (14.0-18.0) g/dL Hct 38.4 L (42.0-52.0) % Plt Count 231 (150-375) k/mm3 BMP 05/28/24 05:58 Sodium 137 Potassium 4.3 Chloride 98 Carbon Dioxide 34 H BUN 16 Creatinine 0.60 L Glucose 108 Calcium 8.9 Cardiac Enzymes 05/28/24 Range/Units 14:57 Troponin I 0.019 (0.000-0.034) ng/mL Liver Function 05/28/24 Range/Units 05:58 Total Bilirubin 0.7 (0.2-1.3) mg/dL AST 31 (17-59) U/L ALT 6 (6-50) U/L Alkaline Phosphatase 81 (38-126) U/L Albumin 3.4 L (3.5-5.1) g/dL
[2024-05-28 18:35] LABS: Troponin I 0.013 ng/mL (0.000-0.034)
[2024-05-28] MEDS: ASPIRIN 81 MG ENTERIC TABLET PO (20:58)
[2024-05-28] MEDS: PREGABALIN (*CRX) 75 MG CAPSULE 150 MG PO (20:58)
[2024-05-28] MEDS: MELATONIN 5 MG TABLET PO (20:58)
[2024-05-28] MEDS: ATORVASTATIN 40 MG TABLET PO (20:58)
[2024-05-28] MEDS: SENNA/DOCUSATE SODIUM TABLET 1 TAB PO (20:59)
[2024-05-28] MEDS: [UNRECOGNIZED DRUG - OTHER] RIGHT EYE (21:07)
[2024-05-28] MEDS: TOBRAMYCIN RIGHT EYE (21:07)
[2024-05-28 22:07] LABS: Troponin I < 0.012 ng/mL (0.000-0.034)
[2024-05-29] VITALS (12 sets, daily range): BP systolic 108–127; BP diastolic 62–90; PULSE 55–86; RESP 16–24; TEMP 36–36.3; O2SAT 87–96
[2024-05-29 06:54] LABS: Basophils Percent Auto 0.7 % (0.2-1.2); Eosinophils Absolute Auto 0.1 K/mm3 (0-0.3); Eosinophils Percent Auto 2.1 % (0-4.4); Hematocrit 36.1 % (42.0-52.0); Hemoglobin 11.4 g/dL (14.0-18.0); Immature Granulocyte Absolute 0.02 K/mm3 (0.00-0.031); Immature Granulocyte Percent A 0.7 % (0-0.5); Lymphocytes Absolute Auto 0.59 K/mm3 (0.9-3.2); Lymphocytes Percent Auto 20.7 % (18.3-44.2); Mean Corpuscular HGB Conc 31.6 g/dl (32-36); Mean Corpuscular Hemoglobin 26.6 pg (26-34); Mean Corpuscular Volume 84.3 fl (80-100); Monocytes Absolute Auto 0.4 K/mm3 (0.1-0.6); Monocytes Percent Auto 12.3 % (2.6-8.5); Neutrophils Absolute Auto 1.8 K/mm3 (1.3-6.7); Neutrophils Percent Auto 63.5 % (45.5-73.1); Platelet Count Result 208 k/mm3 (150-375); Red Blood Count 4.28 M/mm3 (4.6-6.20); Red Cell Distribution Width 15.1 % (11.5-14.5); White Blood Count 2.9 K/mm3 (4.5-10.0)
--- NOTE | 2024-05-29 07:08 | PM.IMPN ---
Progress Note: A&P Assessment and Plan (1) Altered mental status: Code(s): R41.82 - Altered mental status, unspecified Status: Acute Assessment and Plan: Patient had acute episode of altered mental status with expressive dysphagia. He does not seem to have unilateral weakness. He has upper arm drift, bilateral lower extremities with no effort against gravity. Code stroke was called. Dr Dias responded to code stroke. CT head non-contrast was ordered and was negative. Patient had a CTA head/neck from 04/06/24 showed 20% stenosis on the left side. Per neurology, since CTA was so recent no need to repeat. Will obtain bilateral carotid Doppler which showed less than 50% occlusion Stopping Xanax, although this is unlikely the cause reassessment later in the day and the patient was completely back to his baseline. He had no recollection of the days events. Telemetry showed NSR with bigeminal PVCs which resolved later in the day. Now NSR with occasional PVC. Troponin negative x 3, ECHO was completed on 05/25/24 showed LV systolic function normal with EF 60-65%, LV diastolic function is indeterminate, mild pulmonary hypertension estimated PA pressure 42. Trace mitral and tricuspid valve regurgitation. EEG was read as essentially normal Will get brain MRI today consider TIA vs partial seizure vs arrhythmia (2) Mixed restrictive and obstructive lung disease: Code(s): J43.9 - Emphysema, unspecified; J98.4 - Other disorders of lung Status: Acute Assessment and Plan: - new transient O2 requirement: 5L NC, no previous requirement. Was weaned to room air overnight but then desatted to 87%. Now on 3 L. - viral PCR negative - CXR No acute cardiopulmonary pathology. - Chest CTA No pulmonary embolism No aortic dissection. Extremely low lung volumes secondary to elevation of the right hemidiaphragm, unchanged from prior studies. - duoneb [place], continue home inhalers -he does have right lower lobe crackles and bilateral lower extremity pitting edema. He takes Lasix as needed at home for swelling. Will diurese with 1 time of IV Lasix 40 mg a day. -wean oxygen to room air -ABG ordered today given persistent hypoxia and o2 requirement. He has a degree of obstructive lung disease low lung volumes with right evita-diaphragm elevation. -apnea link was preformed and showed o2 desaturation less than 88% for 178 minutes. Repeat apnea link on 2 L NC showed less than 90% desaturation 31 minutes. Patient will require nocturnal oxygen at 2 L NC. -SNIFF test ordered by pulmonology and was normal -repeat Abg showed respiratory alkalosis -pulmonology was consulted and recs a appreciated - pulmonology rec's added to discharge (3) Parkinson's disease with dyskinesia and fluctuating manifestations: Code(s): G20.B2 - Parkinson's disease with dyskinesia, with fluctuations Status: Acute Assessment and Plan: - weakness may be manifestation/progression of Parkinson's - continue carbidopa-levodopa - fall precautions - PT/OT eval and treat - care coordination consult - feels she cannot safely care for him at home, care coordination consulted - was planning for discharge today to swing bed at [place] or [place] however with acute mental status change patient will remain inpatient. (4) Essential (primary) hypertension: Code(s): I10 - Essential (primary) hypertension Status: Chronic Assessment and Plan: - chronic, currently 117/71 - continue home medications: Lisinopril 10 mg daily - monitor blood pressures (5) Urinary retention: Code(s): R33.9 - Retention of urine, unspecified Status: Acute Assessment and Plan: Patient required intermittent straight catheterization in the emergency room and again this morning. Straight cath yielded 750 mils. Patient did not have the urge to void and was able to empty his bladder independently. Patient is on oxybutynin for overactive bladder. Urinary retention can occur with this medication. Hold for now. Patient is also constipated so this could be contributing. Bowel regimen ordered. Added suppository for today. Gut decompression with also assist with lung expansion. Added Flomax Now that he has had a bowel movement we can discontinue the Singh catheter and attempt a void trial Voiding spontaneously, check post void bladder scan (6) Bilateral lower extremity edema: Code(s): R60.0 - Localized edema Status: Acute Assessment and Plan: - patient also has bilateral lower extremity edema. Swelling has improved after a dose of IV Lasix but he has lower extremity calf discomfort. - suspect discomfort is from the swelling in his legs and immobility. is concerned about a blood clot. Less likely that a clot is present given his treatment with Eliquis but will order venous ultrasound to officially rule out. - Tylenol for pain control - history of diastolic grade 1 disfunction. Repeat ECHO shows LV systolic function normal, LV diastolic function indeterminate, mild pulmonary hypertension, mild trace tricuspid and mitral valve regurg - lasix 20 mg daily Plan Anticipate discharge within the next 24-48 hours to swing bed. Diet: heart healthy GI Prophylaxis: not currently indicated DVT Prophylaxis: continue Eliquis Lines: peripheral Code Status: full code Subjective Date/time seen: 05/29/24 07:08 Interval history: No acute events overnight. Patient remained on telemetry with occasional PVC. He is alert and oriented x4 moving all extremities. He required straight cath once since singh removal. Review of Systems Review of Systems: All systems reviewed & are unremarkable except as noted in HPI and below Exam Narrative: General: appears comfortable, in no acute distress, on 2 L NC Respiratory: breathing is unlabored with even chest rise/fall, lung sounds are diminished. Cardiovascular: Rate and rhythm regular, normal s1s2, no murmur Abdomen: Soft, round, non-tender, active bowel sounds Extremities: No cyanosis, +1 pitting edema to bilateral lower extremities, no clubbing. Pulses 2/2. Neuro: a&ox4, moves all extremities against gravity. Skin: Warm, dry, intact Objective Data Vital Signs Vital Signs: Vital Signs - 24 hr 05/28/24 07:45 05/28/24 07:45 05/28/24 09:48 Temperature 99.5 F Pulse Rate 80 97 Respiratory Rate 24 H 22 H Blood Pressure 162/80 H Pulse Oximetry 92 95 Oxygen Delivery Room Air Nasal Cannula Oxygen Flow Rate 3 Fraction of Inspired Oxygen 05/28/24 10:14 05/28/24 11:20 05/28/24 08:00 Temperature 99.5 F 98.4 F Pulse Rate Respiratory Rate Blood Pressure Pulse Oximetry 93 Oxygen Delivery Nasal Cannula Oxygen Flow Rate 2 Fraction of Inspired Oxygen 05/28/24 14:00 05/28/24 12:00 05/28/24 16:00 Temperature 98.2 F Pulse Rate 88 106 H 76 Respiratory Rate 16 Blood Pressure 113/66 Pulse Oximetry 90 Oxygen Delivery Oxygen Flow Rate Fraction of Inspired Oxygen 05/28/24 21:10 05/28/24 20:00 05/29/24 04:20 Temperature 97.9 F 96.8 F L Pulse Rate 70 63 Respiratory Rate 20 16 Blood Pressure 123/88 115/65 Pulse Oximetry 91 91 92 Oxygen Delivery Room Air Oxygen Flow Rate Fraction of Inspired Oxygen 11/18/24 20:00 05/29/24 00:00 05/29/24 04:00 Temperature Pulse Rate 71 59 L 55 L Respiratory Rate Blood Pressure Pulse Oximetry Oxygen Delivery Oxygen Flow Rate Fraction of Inspired Oxygen Intake/Output Intake/Output: Intake & Output 05/26/24 05/27/24 05/28/24 05/29/24 23:59 23:59 23:59 23:59 Intake Total 1428 2348 1922 350 Output Total 1800 2950 500 Balance -372 -602 1922 -150 Meds/Results Medications: Active Medications Generic Name Dose Route Start Last Admin Trade Name Freq PRN Reason Stop Dose Admin Acetaminophen 650 mg 05/26/24 17:47 05/28/24 21:00 Acetaminophen 325 Mg Tablet PO 650 mg Q6H PRN Administration Mild Pain (1-3) or Fever Albuterol 2.5 mg 05/25/24 15:41 Albuterol Sulfate Neb 2.5 Mg/3 Ml Inh INHALATION Q4H PRN Wheezing Alprazolam 0.25 mg 05/25/24 21:10 05/27/24 20:45 Alprazolam (*Crx) 0.25 Mg Tablet PO 0.25 mg TID PRN Administration Anxiety Apixaban 5 mg 05/24/24 09:00 05/28/24 20:58 Apixaban 5 Mg Tablet PO 5 mg Q12HR MEDINA Administration Ascorbic Acid 1,000 mg 05/24/24 09:00 05/28/24 09:54 Ascorbic Acid 500 Mg Tablet PO 1,000 mg DAILY [facility]INA Administration Aspirin 81 mg 05/24/24 21:00 05/28/24 20:58 Aspirin 81 Mg Enteric Tablet PO 81 mg HS MEDINA Administration Atorvastatin Calcium 40 mg 05/24/24 21:00 05/28/24 20:58 Atorvastatin 40 Mg Tablet PO 40 mg HS MEDINA Administration Brimonidine Tartrate 1 drop 05/24/24 09:00 05/28/24 20:59 Brimonidine Tartrate 0.2% Op Soln 5 Ml Btl EACH EYE 1 drop Q12HR MEDNIA Administration Carbidopa/Levodopa 3 tablet 05/26/24 16:00 05/28/24 20:59 Carbidopa/Levodopa 25/100 Mg Tablet PO 3 tablet QID@0800,1200,1600,2000 MEDINA Administration Diclofenac Sodium 1 applic 05/24/24 09:00 05/28/24 21:06 Diclofenac Sodium 1% 100 Gm Gel (*Bkc) TOPICAL 1 applic QID [facility] Administration Duloxetine HCl 60 mg 05/24/24 09:00 05/28/24 09:54 Duloxetine Hcl 60 Mg Capsule.Dr PO 60 mg QAM [facility] Administration Ferrous Sulfate 325 mg 05/25/24 10:45 05/28/24 09:54 Ferrous Sulfate [address] PO 325 mg DAILY [facility] Administration Fluticasone/Umeclidinium/Vilanterol 1 puff 05/24/24 08:00 05/28/24 07:45 Fluticasone/Umeclidin/Vilanter 100-62.5-25 Mcg Ellipta INHALATION 1 puff DAILYRT [facility] Administration Folic Acid 0.4 mg 05/24/24 09:00 05/28/24 09:54 Folic Acid 0.4 Mg Tablet PO 0.4 mg DAILY [facility] Administration Furosemide 20 mg 05/29/24 09:00 Furosemide 20 Mg Tablet PO DAILY [facility]INA Lisinopril 10 mg 05/24/24 09:00 05/28/24 09:54 Lisinopril 10 Mg Tablet PO 10 mg DAILY [facility] Administration Loratadine 10 mg 05/24/24 09:00 05/28/24 09:54 Loratadine 10 Mg Tablet PO 10 mg QAM [facility] Administration Magnesium Oxide 400 mg 05/24/24 09:00 05/28/24 09:54 Magnesium Oxide 400 Mg Tablet PO 400 mg DAILY [facility] Administration Melatonin 5 mg 05/24/24 21:00 05/28/24 20:58 Melatonin 5 Mg Tablet PO 5 mg HS MEDINA Administration Miscellaneous Information 0 each 05/25/24 00:01 05/28/24 01:58 Please Provide Directions For D-Mannose Administration XX 06/24/24 00:00 Not Given [facility]IFY [facility] Multivitamins/Minerals 1 tab 05/24/24 09:00 05/28/24 09:54 Multivitamins /C Lutein (Centrum Silver) Tablet *Bkc PO 1 tab QAM [facility] Administration Non-Formulary Medication 500 mg 05/24/24 00:30 D-Mannose PO 06/23/24 00:29 DIRECTED [facility] Oxybutynin Chloride 5 mg 05/24/24 09:00 05/24/24 09:10 Oxybutynin Chloride Xl 5 Mg Tab.Er.24 PO 5 mg DAILY [facility] Administration Pantoprazole Sodium 40 mg 05/24/24 09:00 05/28/24 09:54 Pantoprazole 40 Mg Tablet PO 40 mg QAM [facility] Administration Polyethylene Glycol 17 gm 05/24/24 11:30 05/28/24 09:54 Polyethylene Glycol 3350 17 Gm Powd.Pack PO 17 gm QAM [facility] Administration Pregabalin 150 mg 05/24/24 21:00 05/28/24 20:58 Pregabalin (*Crx) 75 Mg Capsule PO 150 mg HS MEDINA Administration Quetiapine Fumarate 50 mg 05/24/24 09:00 05/28/24 20:59 Quetiapine Fumarate 25 Mg Tablet PO 50 mg Q12HR [facility] Administration Senna/Docusate Sodium 1 tab 05/24/24 21:00 05/28/24 20:59 Senna/Docusate Sodium Tablet PO 1 tab HS [facility] Administration Tamsulosin HCl 0.4 mg 05/25/24 10:45 05/28/24 09:54 Tamsulosin Hcl 0.4 Mg Capsule PO 0.4 mg QAM [facility] Administration Timolol Maleate 1 drop 05/24/24 09:00 05/28/24 20:59 Timolol Maleate 0.5% Op Soln 5 Ml Bottle EACH EYE 1 drop Q12HR [facility] Administration Tobramycin/Dexamethasone 1 applic 05/26/24 21:00 05/28/24 21:07 Tobramycin/Dexamethasone Op Oint 3.5 Gm Tube RIGHT EYE 1 applic 2100 MED[facility] Administration Vitamin B Complex/Vitamin C 1 each 05/24/24 09:00 05/28/24 09:54 Vitamin B Complex/Vit C Capsule PO 1 each DAILY [facility] Administration Radiology Results: ITS Impressions Chest X-Ray 05/23/24 13:06 IMPRESSION: No acute cardiopulmonary pathology. Chest CTA 05/23/24 18:49 IMPRESSION: No pulmonary embolism No aortic dissection. Extremely low lung volumes secondary to elevation of the right hemidiaphragm, unchanged from prior studies. Venous Doppler Study 05/25/24 14:24 IMPRESSION: 1. No deep venous thrombosis. Chest Fluoroscopy 05/25/24 14:58 IMPRESSION: 1. Small lung volumes with mild atelectasis at the lung bases. 2. Normal motion of the diaphragm. 3. Small left pleural effusion. Head CT 05/28/24 09:42 Impression: No acute intracranial abnormality seen. Case discussed with Miladis Allen at 9:45 AM on 05/28/2024. Carotid Doppler Study 05/28/24 15:07 IMPRESSION: 1. <50% stenosis in the right internal carotid artery. 2. <50% stenosis in the left internal carotid artery. Labs Labs: Laboratory Results - last 24 hr 05/28/24 05/28/24 05/28/24 09:04 11:13 14:57 WBC RBC Hgb Hct MCV MCH MCHC RDW Plt Count MPV Immature Gran % (Auto) Neut % (Auto) Lymph % (Auto) Chambers % (Auto) Eos % (Auto) Baso % (Auto) Lymph # (Auto) Chambers # (Auto) Eos # (Auto) Baso # (Auto) Abs Immat Gran (auto) Absolute Neuts (auto) Absolute Nucleated RBC Nucleated RBC % Puncture Site Right radial ABG pH 7.506 H* ABG pCO2 35.2 ABG pO2 54.1 L ABG PO2/FiO2 Ratio 2.58 ABG HCO3 27.2 H ABG O2 Saturation 91.1 L ABG O2 Content 16.7 ABG Base Excess 4.3 A-a Gradient 53.5 Oxyhemoglobin 89.0 L Total Hemoglobin 13.4 O2 Delivery Device Room air O2 Liters/Min Not Reportable FiO2 21 POC Capillary Glucose 103 Troponin I 0.019 05/28/24 05/28/24 05/29/24 17:59 20:54 05:43 WBC 2.9 L RBC 4.28 L Hgb 11.4 L Hct 36.1 L MCV 84.3 MCH 26.6 MCHC 31.6 L RDW 15.1 H Plt Count 208 MPV 9.0 Immature Gran % (Auto) 0.7 H Neut % (Auto) 63.5 Lymph % (Auto) 20.7 Chambers % (Auto) 12.3 H Eos % (Auto) 2.1 Baso % (Auto) 0.7 Lymph # (Auto) 0.59 L Chambers # (Auto) 0.4 Eos # (Auto) 0.1 Baso # (Auto) 0.0 Abs Immat Gran (auto) 0.02 Absolute Neuts (auto) 1.8 Absolute Nucleated RBC 0.000 Nucleated RBC % 0.0 Puncture Site ABG pH ABG pCO2 ABG pO2 ABG PO2/FiO2 Ratio ABG HCO3 ABG O2 Saturation ABG O2 Content ABG Base Excess A-a Gradient Oxyhemoglobin Total Hemoglobin O2 Delivery Device O2 Liters/Min FiO2 POC Capillary Glucose Troponin I 0.013 D < 0.012 Quality VTE Prophylaxis VTE prophylaxis: pharmacologic ordered
[2024-05-29 07:09] LABS: Alanine Aminotransferase 8 U/L (6-50); Alkaline Phosphatase 78 U/L (38-126); Anion Gap 7 mmol/L (4-12); Aspartate Amino Transferase 40 U/L (17-59); Bilirubin,Total 0.5 mg/dL (0.2-1.3); Blood Urea Nitrogen 27 mg/dL (9-20); Calcium 8.7 mg/dL (8.4-10.2); Carbon Dioxide 29 mmol/L (22-30); Chloride 98 mmol/L (98-107); Estimated CRCL calculation 71 ml/min; Estimated Glomerular Filt Rate > 60; Glucose 132 mg/dL (65-110); Potassium 3.6 mmol/L (3.4-5.0); Sodium 134 mmol/L (137-145)
[2024-05-29] MEDS: ASCORBIC ACID 500 MG TABLET 1000 MG PO (08:09)
[2024-05-29] MEDS: polyethylene glycoL 3350 17 GM POWD.PACK PO (08:09)
[2024-05-29] MEDS: MULTIVITAMINS /C LUTEIN (CENTRUM SILVER) TABLET *BKC 1 TAB PO (08:09)
[2024-05-29] MEDS: MAGNESIUM OXIDE 400 MG TABLET PO (08:09)
[2024-05-29] MEDS: QUEtiapine FUMARATE 25 MG TABLET 50 MG PO ×2 (08:09→20:05)
[2024-05-29] MEDS: CARBIDOPA/LEVODOPA 25/100 MG TABLET 3 TABLET PO ×4 (08:09→20:05)
[2024-05-29] MEDS: FOLIC ACID 0.4 MG TABLET PO (08:09)
[2024-05-29] MEDS: APIXABAN 5 MG TABLET PO ×2 (08:09→20:06)
[2024-05-29] MEDS: TAMSULOSIN HCL 0.4 MG CAPSULE PO (08:09)
[2024-05-29] MEDS: VITAMIN B COMPLEX/VIT C CAPSULE 1 EACH PO (08:09)
[2024-05-29] MEDS: FERROUS SULFATE 325 MG TABLET DR PO (08:09)
[2024-05-29] MEDS: FUROSEMIDE 20 MG TABLET PO (08:09)
[2024-05-29] MEDS: DULoxetine HCL 60 MG CAPSULE.DR PO (08:09)
[2024-05-29] MEDS: LORATADINE 10 MG TABLET PO (08:10)
[2024-05-29] MEDS: lisinopriL 10 MG TABLET PO (08:10)
[2024-05-29] MEDS: ACETAMINOPHEN 325 MG TABLET 650 MG PO ×2 (08:10→20:06)
[2024-05-29] MEDS: PANTOPRAZOLE 40 MG TABLET PO (08:10)
[2024-05-29] MEDS: TIMOLOL MALEATE 0.5% OP SOLN 5 ML BOTTLE 1 DROP EACH EYE ×2 (08:21→20:07)
[2024-05-29] MEDS: FLUTICASONE/UMECLIDIN/VILANTER 100-62.5-25 MCG ELLIPTA 1 PUFF INHALATION (08:21)
[2024-05-29] MEDS: DICLOFENAC SODIUM 1% 100 GM GEL (*BKC) 1 APPLIC TOPICAL ×4 (08:21→20:07)
[2024-05-29] MEDS: BRIMONIDINE TARTRATE 0.2% OP SOLN 5 ML BTL 1 DROP EACH EYE ×2 (08:21→20:07)
[2024-05-29 08:24] LABS: Basophils Percent Auto 0.7 % (0.2-1.2); Eosinophils Absolute Auto 0.1 K/mm3 (0-0.3); Eosinophils Percent Auto 3.7 % (0-4.4); Hematocrit 40.1 % (42.0-52.0); Hemoglobin 12.7 g/dL (14.0-18.0); Immature Granulocyte Absolute 0.01 K/mm3 (0.00-0.031); Immature Granulocyte Percent A 0.3 % (0-0.5); Lymphocytes Absolute Auto 0.58 K/mm3 (0.9-3.2); Lymphocytes Percent Auto 19.5 % (18.3-44.2); Mean Corpuscular HGB Conc 31.7 g/dl (32-36); Mean Corpuscular Hemoglobin 26.8 pg (26-34); Mean Corpuscular Volume 84.6 fl (80-100); Mean Platelet Volume 8.6 fl (7.4-10.4); Monocytes Absolute Auto 0.4 K/mm3 (0.1-0.6); Monocytes Percent Auto 14.5 % (2.6-8.5); Neutrophils Absolute Auto 1.8 K/mm3 (1.3-6.7); Neutrophils Percent Auto 61.3 % (45.5-73.1); Platelet Count Result 211 k/mm3 (150-375); Red Blood Count 4.74 M/mm3 (4.6-6.20)
--- NOTE | 2024-05-29 09:22 | P.PNPL_ITS ---
Progress Note: A&P Assessment and Plan (1) Respiratory failure with hypoxia: Code(s): J96.91 - Respiratory failure, unspecified with hypoxia Status: Acute Assessment and Plan: Patient with hypoxic respiratory failure with an ABG today of 7.43/47/67 on 3 L nasal cannula. There is no evidence of chronic hypercarbic respiratory failure that would qualify him for noninvasive ventilation. Patient has a hist ory of Parkinson's disease with neurogenic bladder, decreased mobility now in wheelchair for the last 3 weeks, history of silent aspiration and history of hypoxemia. He has severe restrictive lung disease on his PFTs from 05/03/2024. He has chronic elevation of the right greater than left hemidiaphragm were since 10/08/2021. 05/24/2024: Overnight oximetry on 3 L nasal cannula. Recording duration 6 hours and 35 minutes. Average saturation 92%. Low saturation 86%. Time with saturation less than or equal to 88% was 30 minutes or 8% of the monitored time. Oxygen desaturation index was 0.6. 05/25/2024: I was able to turn the patient to room air and after 20 minutes his saturations remain 95%. Of note the patient has Parkinson's with a tremor and the plethysmography tracing needs to be verified to ensure that it is inaccurate reading. Sniff test shows normal motion of the diaphragms. Etiology of patient's hypoxemic respiratory failure include: atelectasis, mucous plugging, chronic aspiration, possible reactive airway disease or COPD, bowel positioning between liver and diaphragm. I doubt recurrent pulmonary embolism, pneumonia or fluid overload. Plan: The patient intermittently requires oxygen suggesting that atelectasis and/or mucus plugging is a likely factor. The patient has been mostly bed-bound with some areas of atelectasis in the lower lobes right greater than left. Patient should continue incentive spirometry q.2 hours while awake. I will order a Cornet flutter valve as well as EzPAP treatment 3 times a day. There is no evidence of lobar collapse or mucus plugging on the CT scan. The patient has previously been evaluated for aspiration and he likely has silent aspiration and has worked with speech therapy previously. There is no evidence of chronic interstitial lung disease secondary to aspiration. The patient had a therapeutic benefit from trelegy inhaler prescribed as an outpatient. I will continue his trelegy inhaler 100. I will discontinue nebulized albuterol at this time. I will continue his Eliquis 5 q.12 for his prior history of PE. patient has a history of constipation and this is managed by hospitalists team. Since his oxygenation appears to have improved now, I will order another ApneaLink on room air tonight to determine if he still qualifies for oxygen at night. If the patient is overnight oximetry on room air demonstrates time with saturation less than or equal to 88% at less than 5 minutes he can be discharged without any supplemental oxygen at night. If her time with saturation less than or equal to 88% is greater than 5 minutes the test should be repeated on supplemental oxygen and repeat overnight oximetry should be performed to verify that time with saturation less than or equal to 88% becomes less than 5 minutes. Inpatient pulmonary consult services will resume on 05/28/2024. Discussed with Suzanna Allen, and the on speaker phone. Will follow with you. 05/28/2024: Earlier today room air saturations were 96%. Patient intermittently stopped answering questions and a code stroke was called. CT scan of the head was negative. Neurology is following. Patient has Kenny- Brandt respirations on physical exam. White blood cell count 9.0, creatinine 0.6. During the code stroke patient was placed on 3 L nasal cannula saturations 95%. Overnight oximetry on 2 L nasal cannula with recording duration 5 hours and 42 minutes, average saturation 92%. Low saturation 90%. Time with saturation less than or equal to 88% was 0 minutes, oxygen desaturation index was 0. Plan: Patient appears in no respiratory distress. Kenny-Brandt respirations indicate likely neurologic issue as his recent echocardiogram with normal LVEF. Will wean his oxygen to room air with goal saturation 90-94%. I will check an ABG to assess for hypercarbia. Continue trelegy 100, Cornet flutter valve, incentive spirometry, and EzPAP treatment. Continue 2 L nasal cannula at night. Patient with altered mental status and what appears to be an expressive aphasia. He did receive Xanax 0.25 last night, hold. Neurology has been involved and has ordered an EEG. Carotid Dopplers ordered. EEG normal. Carotid Dopplers less than 50% bilaterally. ABG on room air 7.51/35/54. Patient was placed on 2 L. 05/29/24: Patient is more awake this morning. He tells me his name, states that his May 2024 but does not know the date, states that bravo is a present in the [place], names a pen, pen cap and pocket clip correctly. Shows 2 fingers and wiggles toes to verbal commands. States he is breathing well and has no respiratory complaints. Denies cough, phlegm or hemoptysis. He is afebrile. White blood cell count 2.9, creatinine 0.9. When I enter the room he was on 2 L nasal cannula saturations 97%. I decreased him to room air and after 9 minutes his saturations were 94%. Plan: currently on room air at rest. Continue trelegy 100 inhaler, Cornet flutter valve, incentive spirometry, and EzPAP treatment. Continue 2 L nasal cannula at night. currently on room air at rest. out of bed to chair as tolerated. From a pulmonary perspective patient is ready to be discharged on these pulmonary medications: Trelegy inhaler 100 - 62.5-25 at 1 puff q.day rescue albuterol 2 puffs q.4 hours p.r.n. shortness of breath or wheezing loratadine 10 mg a day oxygen at rest and with ambulation per facilities protocol. Currently is on room air at rest with saturations 94%. Oxygen 2 L when naps or sleeps. (2) Restrictive lung disease: Code(s): J98.4 - Other disorders of lung Status: Acute Assessment and Plan: Patient has a long history of small lung volume with elevated diaphragms. Chest x-rays dating back to 01/19/2013 shows small lung volumes there appeared to be an acute worsening between 03/18/2021 and 10/08/2021 with worsening elevation of the bilateral hemidiaphragms right greater than left. PFTs with severe restrictive abnormality on 05/03/2024 with no evidence of interstitial lung disease on his recent CT scans. Progressive Parkinson's can cause chest wall muscle rigidity contributing to his restrictive abnormality. Patient with constipation and his intestines are between his liver and his right hemidiaphragm. agree with continued treatment for constipation. Plan: Continued optimization of his Parkinson's treatment. Currently on carbidopa levodopa 25-100 at 3 tablets 4 times a day. Hospitalist managing constipation. Patient has a Valdez also for his neurogenic bladder. 05/28/24: Patient was voiding on his own. Patient with altered mental status and what appears to be an expressive aphasia. He did receive Xanax 0.25 last night. As above code stroke called. Plan: Neurology has been involved and has ordered an EEG. Carotid Dopplers ordered. 05/29/24: Continue optimization of his Parkinson's treatment, management pulmonary secretions, loratadine 10 mg q.day for sinus congestion. Subjective Date/time seen: 05/29/24 09:22 Interval history: 05/25/2024: This is a new pulmonary consult for hypoxia. 74-year-old with a history of Parkinson's, pulmonary embolism in December of 2023 on Xarelto, coronary artery disease status post stent, hypertension, neurogenic bladder. patient is followed in the Pulmonary Clinic and was last seen on 05/11/2024. This was a follow-up visit for from 03/20/2024. He was given a therapeutic trial of trelegy and he had improved on 05/11/2024. He had no longer coughing spells shortness of breath was better and his oxygenation had improved. Previously was admitted to [facility] and there were concerns that his Parkinson's had worsened. He had a history of neurogenic bladder, his activity had decreased, he had silent aspiration and had taken 2 antibiotics in 3 steroid since December of 2023.. 10/07/2020 after bronchodilator 05/03/2024 newest after BD FVC 2.64L, 55% NONE 1.97 L, 43% 1.67 L, 36%, -15 FEV1 1.98L, 56% 1.568 L, 48% 1.37 L, 40%, -12 FEV1/FVC 75% 79% 82% RHY24-43% 1.64 L, 64 % 1.49 L, 62% 1.66 L, 69%, +12 TLC 4.99, 64 % 5.46 L, 70% RV 2.14 L, 79% 2.13 L, 78% ERV RV/TLC 43% 39% DLCO 18.6, 68% 15.5, 59% DLCO/VA 4.28, 117% 5.38, 153% most recent PFTs on 05/03/2024 demonstrated a severe restrictive abnormality. On review of prior radiographs, patient has a long history of small lung volume with elevated diaphragms. Chest x-rays dating back to 01/19/2023 shows small lung volumes there appeared to be an acute worsening between 03/18/2021 and 10/08/2021 with worsening elevation of the bilateral hemidiaphragms right greater than left. I spoke to the and 2 years ago the patient was thought to have a mini- stroke but in fact it was Parkinson's disease. Ever since that time she states the patient has not been taking deep breaths. She tells me last week he was able to walk. He has been walking in rehab and around the house. She does not routinely measure his pulse oximetry. On 05/23/2024 patient presented to [facility] Room for gener alized weakness and hypoxia. room air saturations were 89% and saturations were 94% on [address] angiogram of the chest showed no pulmonary embolism, no aortic dissection and low lung volumes with an elevated right hemidiaphragm. There is no evidence of interstitial lung disease, masses or pleural disease. 05/24/2024: Overnight oximetry on 3 L nasal cannula. Recording duration 6 hours and 35 minutes. Average saturation 92%. Low saturation 86%. Time with saturation less than or equal to 88% was 30 minutes or 8% of the monitored time. Oxygen desaturation index was 0.6. 05/25/2024: Patient with continued oxygen requirements of 3 L and had an ABG of 7.43/47/67 and I was consulted. currently the patient denies any shortness of breath, fever, chills, rigors, cough, phlegm production, chest tightness or hemoptysis. He tells me that his Parkinson's is getting worse and he told me he has not walked and 1-2 months but the said he had been walking up until 6 days ago. To his knowledge ease never worn oxygen previously. When I enter the room the patient was on 3 L nasal cannula saturations 94%. I turned him to room air and after 21 minutes his saturations were 95%. I watched the patient do incentive spirometry and he was pulling 0682-5032 mL. Inpatient Pulmonary consult services will resume on 05/28/2024. 05/26/24: Overnight oximetry on room air: Recording duration 6 hours and 44 minutes. Average saturation 89%. Low saturation 77%. Time with saturation less than or equal to 88% was 178 minutes. Oxygen desaturation index 4.2. 05/28/2024: Earlier today room air saturations were 96%. Patient intermittently stopped answering questions and a code stroke was called. CT scan of the head was negative. Neurology is following. Patient has Kenny- Brandt respirations on physical exam. White blood cell count 9.0, creatinine 0.6. Overnight oximetry on 2 L nasal cannula with recording duration 5 hours and 42 minutes, average saturation 92%. Low saturation 90%. Time with saturation less than or equal to 88% was 0 minutes, oxygen desaturation index was 0. 05/29/24: Patient is more awake this morning. He tells me his name, states that his May 2024 but does not know the date, states that bravo is a present in the [facility], names a pen, pen cap and pocket clip correctly. Shows 2 fingers and wiggles toes to verbal commands. States he is breathing well and has no respiratory complaints. Denies cough, phlegm or hemoptysis. He is afebrile. White blood cell count 2.9, creatinine 0.9. When I enter the room he was on 2 L nasal cannula saturations 97%. I decreased him to room air and after 9 minutes his saturations were 94%. DATA: 05/25/24: EXAMINATION: XR sniff test with CXR2V DATE: 05/25/2024 14:48 INDICATION: Elevated right hemidiaphragm. TECHNIQUE: Frontal and lateral views of the chest were obtained. I performed fluoroscopy of the chest while the patient performed normal breathing, deep respiration, and forceful sniffing. The number of fluoroscopy images was 904. The fluoroscopy time was 0.5 minutes. COMPARISON: Chest CT 05/23/2024, chest 2 views 05/23/2024 FINDINGS: CHEST TWO VIEWS: The lung volumes are small. There is mild relative elevation of right hemidiaphragm. There is mild atelectasis at the lung bases. There is a small left pleural effusion. No pneumothorax. The heart size is normal. SNIFF TEST: There is normal and symmetric motion of the right and left sides of the diaphragm. IMPRESSION: 1. Small lung volumes with mild atelectasis at the lung bases. 2. Normal motion of the diaphragm. 3. Small left pleural effusion. 05/23/24: EXAMINATION: CTA chest PE protocol INDICATION: Shortness of breath, pulmonary embolus suspected clinically COMPARISON: 03/23/2024 and 11/29/2023 FINDINGS: No filling defect is identified within the main or proximal pulmonary arteries. Extremely low lung volumes are detected secondary to elevation of the right hemidiaphragm (unchanged from prior). The thoracic aorta is unremarkable, without aneurysmal dilatation or dissection. The lungs demonstrate pulmonary vascular crowding, but are unremarkable. Within the upper abdomen: Significant elevation of the right hemidiaphragm. The gallbladder is only minimally distended but otherwise unremarkable. The bilateral kidneys are without calcified stones. IMPRESSION: No pulmonary embolism No aortic dissection. Extremely low lung volumes secondary to elevation of the right hemidiaphragm, unchanged from prior studies. 05/03/24: This is a pulmonary function test with pre and post-bronchodilator spirometry, plethysmography and diffusing capacity. The test was performed and results interpreted in accordance with the 2019 and 2005 ATS/ERS Task Force guidelines respectively using the Global Lung Function Initiative-2012 reference equations. Patient demonstrated good effort and cooperation. Reproducibility criteria were met. The quality of the pre bronchodilator spirometry maneuver was Grade B and post bronchodilator spirometry maneuver was Grade B. Of note, patient has Parkinson's disease and did all testing to the best of his ability. Findings: Spirometry: The contour the inspiratory and expiratory flow tracing are normal. The pre bronchodilator FVC is 1.97 L, 43% predicted. The pre bronchodilator FEV1 is 1.56 L, 46% predicted. The pre bronchodilator FEV1: FVC ratio 79%. The post bronchodilator FVC is 1.67 L, representing a 15% decrease. The post bron chodilator FEV1 is 1.37 L, representing a 12% decrease. The post bronchodilator FEV1: FVC ratio is 82%. Plethysmography: The total lung capacity is 5.46 L, 70% predicted. The functional residual capacity is 2.15 L, 50% predicted. The residual volume is 2.13 L, 76% predicted. Diffusing capacity: The diffusing capacity unadjusted for hemoglobin and carboxyhemoglobin is 15.5, 59% predicted. Diffusing capacity adjusted for alveolar volume is 5.38, 153% predicted. Impression: There is a severe restrictive ventilatory abnormality. The spirometry is normal without evidence of an obstructive abnormality. There is a significant decrease in the post bronchodilator FVC and FEV1 consistent with a possible paradoxical bronchoconstriction after inhaled albuterol. Clinical correlation is recommended. The diffusing capacity unadjusted for hemoglobin and carboxyhemoglobin is moderately decreased and is increased when adjusted for alveolar volume. 03/23/2024: EXAMINATION: CT diagnostic chest wo con DATE: 03/23/2024 14:20 INDICATION: R05.3 - Chronic cough TECHNIQUE: Computed tomography (CT) of the chest was performed without intravenous contrast. Additional 3D reconstructions utilizing coronal maximum intensity projection (MIP) were performed. Automated exposure control and iterative reconstruction technique were employed. The dose-length product was 371.21 mGy-cm. COMPARISON: 11/29/2023 FINDINGS: There is elevation right hemidiaphragm with mild right basilar atelectasis. Unchanged band of discoid atelectasis/scarring in the right lower lobe. There are couple unchanged 3-4 mm nodules at the peripheral left upper lobe consistent with old granulomatous disease. No pneumonia, pulmonary edema, pleural effusion and pneumothorax. Heart size is normal. Atherosclerotic coronary artery calcifications. No pericardial effusion. Thoracic aorta is normal in caliber. No pathologically enlarged thoracic lymphadenopathy. Severe lower cervical and upper thoracic spondylosis. Moderate spondylosis in the mid to lower thoracic spine with chronic mild anterior wedging at T9. Unchanged lucent T10 hemangioma. IMPRESSION: 1. Chronic elevation the right lower lobe with atelectasis/scarring at the right lung base and right lower lobe. No acute cardiopulmonary disease. Review of Systems Constitutional: Constitutional: Reports no additional constitutional complaints Eyes: Eyes: Reports no additional eye complaints ENT: Reports system reviewed and no additional complaints, except as documented Cardiovascular: Cardiovascular: Reports no additional cardiovascular complaints Respiratory: Respiratory: Reports no additional respiratory complaints Gastrointestinal: Gastrointestinal: Reports no additional gastrointestinal complaints Musculoskeletal: Musculoskeletal: Reports no additional musculoskeletal complaints Neurologic: Reports system reviewed and no additional complaints, except as documented Psychiatric: Psychiatric: Reports no additional psychiatric complaints Endocrine: Endocrine: Reports no additional endocrine complaints Hematologic/Lymphatic: Hematologic/Lymphatic: Reports no additional hematologic/lymphatic complaints Allergic/Immunologic: Allergic/Immunologic: Reports no additional allergic/immunologic complaints Exam Const: General: cooperative, comfortable and no acute distress Orientation/consciousness: oriented to person, oriented to place and oriented to time HENMT: Head: normal to inspection Ears: hearing grossly normal bilaterally Eyes: General: appearance normal, both eyes and all related structures Neck: Neck: normal visual inspection Chest: Chest palpation & inspection: normal inspection of the chest Resp: Effort & Inspection: normal respiratory effort and able to speak in complete sentences Auscultation: crackles, no rales, no rhonchi, no wheezes and lung sounds not diminished Cardio: Jugular venous distension: no JVD GI: Inspection: normal to inspection Skin: General skin exam: normal color Neuro: General: oriented to person, oriented to place and oriented to time Extrem: General: normal to inspection and edema Psych: Appearance: grossly normal Objective Data Vital Signs Vital Signs: Vital Signs - 24 hr 05/28/24 09:48 05/28/24 10:14 05/28/24 11:20 Temperature 37.5 C 37.5 C 36.9 C Pulse Rate 97 Respiratory Rate 22 H Blood Pressure 162/80 H Pulse Oximetry 95 Oxygen Delivery Nasal Cannula Oxygen Flow Rate 3 05/28/24 14:00 05/28/24 12:00 05/28/24 16:00 Temperature 36.8 C Pulse Rate 88 106 H 76 Respiratory Rate 16 Blood Pressure 113/66 Pulse Oximetry 90 Oxygen Delivery Oxygen Flow Rate 05/28/24 21:10 05/28/24 20:00 05/29/24 04:20 Temperature 36.6 C 36.0 C L Pulse Rate 70 63 Respiratory Rate 20 16 Blood Pressure 123/88 115/65 Pulse Oximetry 91 91 92 Oxygen Delivery Room Air Oxygen Flow Rate 05/28/24 20:00 05/29/24 00:00 05/29/24 04:00 Temperature Pulse Rate 71 59 L 55 L Respiratory Rate Blood Pressure Pulse Oximetry Oxygen Delivery Oxygen Flow Rate 05/29/24 08:23 05/29/24 08:23 05/29/24 08:00 Temperature Pulse Rate 86 69 Respiratory Rate 24 H Blood Pressure Pulse Oximetry 96 Oxygen Delivery Room Air Oxygen Flow Rate Intake/Output Intake/Output: Intake & Output 05/26/24 05/27/24 05/28/24 05/29/24 23:59 23:59 23:59 23:59 Intake Total 1425 2348 1922 350 Output Total 8477 1104 500 Balance -372 602 1922 -150 Meds/Results Medications: Active Medications Generic Name Dose Route Start Last Admin Trade Name Freq PRN Reason Stop Dose Admin Acetaminophen 650 mg 05/26/24 17:47 05/29/24 08:10 Acetaminophen 325 Mg Tablet PO 650 mg Q6H PRN Administration Mild Pain (1-3) or Fever Albuterol 2.5 mg 05/25/24 15:41 Albuterol Sulfate Neb 2.5 Mg/3 Ml Inh INHALATION Q4H PRN Wheezing Alprazolam 0.25 mg 05/25/24 21:10 05/27/24 20:45 Alprazolam (*Crx) 0.25 Mg Tablet PO 0.25 mg TID PRN Administration Anxiety Apixaban 5 mg 05/24/24 09:00 05/29/24 08:09 Apixaban 5 Mg Tablet PO 5 mg Q12HR KOFI Administration Ascorbic Acid 1,000 mg 05/24/24 09:00 05/29/24 08:09 Ascorbic Acid 500 Mg Tablet PO 1,000 mg DAILY KOFI Administration Aspirin 81 mg 05/24/24 21:00 05/28/24 20:58 Aspirin 81 Mg Enteric Tablet PO 81 mg HS KOFI Administration Atorvastatin Calcium 40 mg 05/24/24 21:00 05/28/24 20:58 Atorvastatin 40 Mg Tablet PO 40 mg HS KOFI Administration Brimonidine Tartrate 1 drop 05/24/24 09:00 05/29/24 08:21 Brimonidine Tartrate 0.2% Op Soln 5 Ml Btl EACH EYE 1 drop Q12HR KOFI Administration Carbidopa/Levodopa 3 tablet 05/26/24 16:00 05/29/24 08:09 Carbidopa/Levodopa 25/100 Mg Tablet PO 3 tablet QID@0800,1200,1600,2000 KOFI Administration Diclofenac Sodium 1 applic 05/24/24 09:00 05/29/24 08:21 Diclofenac Sodium 1% 100 Gm Gel (*Bkc) TOPICAL 1 applic QID KOFI Administration Duloxetine HCl 60 mg 05/24/24 09:00 05/29/24 08:09 Duloxetine Hcl 60 Mg Capsule. PO 60 mg QAM KOFI Administration Ferrous Sulfate 325 mg 05/25/24 10:45 05/29/24 08:09 Ferrous Sulfate [address] PO 325 mg DAILY KOFI Administration Fluticasone/Umeclidinium/Vilanterol 1 puff 05/24/24 08:00 05/29/24 08:21 Fluticasone/Umeclidin/Vilanter 100-62.5-25 Mcg Ellipta INHALATION 1 puff DAILYRT KOFI Administration Folic Acid 0.4 mg 05/24/24 09:00 05/29/24 08:09 Folic Acid 0.4 Mg Tablet PO 0.4 mg DAILY KOFI Administration Furosemide 20 mg 05/29/24 09:00 05/29/24 08:09 Furosemide 20 Mg Tablet PO 20 mg DAILY KOFI Administration Lisinopril 10 mg 05/24/24 09:00 05/29/24 08:10 Lisinopril 10 Mg Tablet PO 10 mg DAILY KOFI Administration Loratadine 10 mg 05/24/24 09:00 05/29/24 08:10 Loratadine 10 Mg Tablet PO 10 mg QAM KOFI Administration Magnesium Oxide 400 mg 05/24/24 09:00 05/29/24 08:09 Magnesium Oxide 400 Mg Tablet PO 400 mg DAILY KOFI Administration Melatonin 5 mg 05/24/24 21:00 05/28/24 20:58 Melatonin 5 Mg Tablet PO 5 mg HS KOFI Administration Miscellaneous Information 0 each 05/25/24 00:01 05/28/24 01:58 Please Provide Directions For D-Mannose Administration XX 06/24/24 00:[address] [facility] Multivitamins/Minerals 1 tab 05/24/24 09:00 05/29/24 08:09 Multivitamins /C Lutein (Centrum Silver) Tablet *Bkc PO 1 tab QAM KOFI Administration Non-Formulary Medication 500 mg 05/24/24 00:30 D-Mannose PO 06/23/24 00:29 DIRECTED KOFI Oxybutynin Chloride 5 mg 05/24/24 09:00 05/24/24 09:10 Oxybutynin Chloride Xl 5 Mg Tab.Er.24 PO 5 mg DAILY KOFI Administration Pantoprazole Sodium 40 mg 05/24/24 09:00 05/29/24 08:10 Pantoprazole 40 Mg Tablet PO 40 mg QAM KOFI Administration Polyethylene Glycol 17 gm 05/24/24 11:30 05/29/24 08:09 Polyethylene Glycol 3350 17 Gm Powd.Pack PO 17 gm QAM KOFI Administration Pregabalin 150 mg 05/24/24 21:00 05/28/24 20:58 Pregabalin (*Crx) 75 Mg Capsule PO 150 mg HS KOFI Administration Quetiapine Fumarate 50 mg 05/24/24 09:00 05/29/24 08:09 Quetiapine Fumarate 25 Mg Tablet PO 50 mg Q12HR KOFI Administration Senna/Docusate Sodium 1 tab 05/24/24 21:00 05/28/24 20:59 Senna/Docusate Sodium Tablet PO 1 tab HS KOFI Administration Tamsulosin HCl 0.4 mg 05/25/24 10:45 05/29/24 08:09 Tamsulosin Hcl 0.4 Mg Capsule PO 0.4 mg QAM KOFI Administration Timolol Maleate 1 drop 05/24/24 09:00 05/29/24 08:21 Timolol Maleate 0.5% Op Soln 5 Ml Bottle EACH EYE 1 drop Q12HR KOFI Administration Tobramycin/Dexamethasone 1 applic 05/26/24 21:00 05/28/24 21:07 Tobramycin/Dexamethasone Op Oint 3.5 Gm Tube RIGHT EYE 1 applic 2100 KOFI Administration Vitamin B Complex/Vitamin C 1 each 05/24/24 09:00 05/29/24 08:09 Vitamin B Complex/Vit C Capsule PO 1 each DAILY KOFI Administration Radiology Results: ITS Impressions Chest X-Ray 05/23/24 13:06 IMPRESSION: No acute cardiopulmonary pathology. Chest CTA 05/23/24 18:49 IMPRESSION: No pulmonary embolism No aortic dissection. Extremely low lung volumes secondary to elevation of the right hemidiaphragm, unchanged from prior studies. Venous Doppler Study 05/25/24 14:24 IMPRESSION: 1. No deep venous thrombosis. Chest Fluoroscopy 05/25/24 14:58 IMPRESSION: 1. Small lung volumes with mild atelectasis at the lung bases. 2. Normal motion of the diaphragm. 3. Small left pleural effusion. Head CT 05/28/24 09:42 Impression: No acute intracranial abnormality seen. Case discussed with Miladis Allen at 9:45 AM on 05/28/2024. Carotid Doppler Study 05/28/24 15:07 IMPRESSION: 1. <50% stenosis in the right internal carotid artery. 2. <50% stenosis in the left internal carotid artery. Labs Labs: Laboratory Results - last 24 hr 05/28/24 05/28/24 05/28/24 09:04 11:13 14:57 WBC RBC Hgb Hct MCV MCH MCHC RDW Plt Count MPV Immature Gran % (Auto) Neut % (Auto) Lymph % (Auto) Clay % (Auto) Eos % (Auto) Baso % (Auto) Lymph # (Auto) Clay # (Auto) Eos # (Auto) Baso # (Auto) Abs Immat Gran (auto) Absolute Neuts (auto) Absolute Nucleated RBC Nucleated RBC % Puncture Site Right radial ABG pH 7.506 H* ABG pCO2 35.2 ABG pO2 54.1 L ABG PO2/FiO2 Ratio 2.58 ABG HCO3 27.2 H ABG O2 Saturation 91.1 L ABG O2 Content 16.7 ABG Base Excess 4.3 A-a Gradient 53.5 Oxyhemoglobin 89.0 L Total Hemoglobin 13.4 O2 Delivery Device Room air O2 Liters/Min Not Reportable FiO2 21 Sodium Potassium Chloride Carbon Dioxide Anion Gap BUN Creatinine Estim Creat Clear Calc Estimated GFR Glucose POC Capillary Glucose 103 Calcium Total Bilirubin AST ALT Alkaline Phosphatase Troponin I 0.019 Total Protein Albumin 05/28/24 05/28/24 05/29/24 17:59 20:54 05:43 WBC 2.9 L RBC 4.28 L Hgb 11.4 L Hct 36.1 L MCV 84.3 MCH 26.6 MCHC 31.6 L RDW 15.1 H Plt Count 208 MPV 9.0 Immature Gran % (Auto) 0.7 H Neut % (Auto) 63.5 Lymph % (Auto) 20.7 Clay % (Auto) 12.3 H Eos % (Auto) 2.1 Baso % (Auto) 0.7 Lymph # (Auto) 0.59 L Clay # (Auto) 0.4 Eos # (Auto) 0.1 Baso # (Auto) 0.0 Abs Immat Gran (auto) 0.02 Absolute Neuts (auto) 1.8 Absolute Nucleated RBC 0.000 Nucleated RBC % 0.0 Puncture Site ABG pH ABG pCO2 ABG pO2 ABG PO2/FiO2 Ratio ABG HCO3 ABG O2 Saturation ABG O2 Content ABG Base Excess A-a Gradient Oxyhemoglobin Total Hemoglobin O2 Delivery Device O2 Liters/Min FiO2 Sodium 134 L Potassium 3.6 Chloride 98 Carbon Dioxide 29 Anion Gap 7 BUN 27 H D Creatinine 0.90 Estim Creat Clear Calc 71 Estimated GFR > 60 Glucose 132 H POC Capillary Glucose Calcium 8.7 Total Bilirubin 0.5 AST 40 ALT 8 Alkaline Phosphatase 78 Troponin I 0.013 D < 0.012 Total Protein 7.0 Albumin 3.0 L 05/29/24 08:15 WBC 3.0 L RBC 4.74 Hgb 12.7 L Hct 40.1 L MCV 84.6 MCH 26.8 MCHC 31.7 L RDW 15.0 H Plt Count 211 MPV 8.6 Immature Gran % (Auto) 0.3 Neut % (Auto) 61.3 Lymph % (Auto) 19.5 Clay % (Auto) 14.5 H Eos % (Auto) 3.7 Baso % (Auto) 0.7 Lymph # (Auto) 0.58 L Clay # (Auto) 0.4 Eos # (Auto) 0.1 Baso # (Auto) 0.0 Abs Immat Gran (auto) 0.01 Absolute Neuts (auto) 1.8 Absolute Nucleated RBC 0.000 Nucleated RBC % 0.0 Puncture Site ABG pH ABG pCO2 ABG pO2 ABG PO2/FiO2 Ratio ABG HCO3 ABG O2 Saturation ABG O2 Content ABG Base Excess A-a Gradient Oxyhemoglobin Total Hemoglobin O2 Delivery Device O2 Liters/Min FiO2 Sodium Potassium Chloride Carbon Dioxide Anion Gap BUN Creatinine Estim Creat Clear Calc Estimated GFR Glucose POC Capillary Glucose Calcium Total Bilirubin AST ALT Alkaline Phosphatase Troponin I Total Protein Albumin
--- NOTE | 2024-05-29 15:32 | PCPTNOTE ---
The patient treatment was not able to be completed at this time due to RN working with patient at bedside. Will plan to continue treatment per plan of care.
[2024-05-29] MEDS: SENNA/DOCUSATE SODIUM TABLET 1 TAB PO (20:04)
[2024-05-29] MEDS: PREGABALIN (*CRX) 75 MG CAPSULE 150 MG PO (20:05)
[2024-05-29] MEDS: MELATONIN 5 MG TABLET PO (20:05)
[2024-05-29] MEDS: ASPIRIN 81 MG ENTERIC TABLET PO (20:06)
[2024-05-29] MEDS: ATORVASTATIN 40 MG TABLET PO (20:06)
[2024-05-29] MEDS: TOBRAMYCIN RIGHT EYE (20:07)
[2024-05-29] MEDS: [UNRECOGNIZED DRUG - OTHER] RIGHT EYE (20:07)
[2024-05-30] VITALS (11 sets, daily range): BP systolic 107–126; BP diastolic 68–74; PULSE 55–82; RESP 12–18; TEMP 35.9–36.8; O2SAT 91–96
[2024-05-30 06:51] LABS: Basophils Percent Auto 0.8 % (0.2-1.2); Eosinophils Absolute Auto 0.3 K/mm3 (0-0.3); Eosinophils Percent Auto 8.2 % (0-4.4); Hematocrit 38.2 % (42.0-52.0); Immature Granulocyte Absolute 0.02 K/mm3 (0.00-0.031); Immature Granulocyte Percent A 0.5 % (0-0.5); Lymphocytes Absolute Auto 1.24 K/mm3 (0.9-3.2); Lymphocytes Percent Auto 32.6 % (18.3-44.2); Mean Corpuscular HGB Conc 31.4 g/dl (32-36); Mean Corpuscular Hemoglobin 26.7 pg (26-34); Mean Corpuscular Volume 85.1 fl (80-100); Mean Platelet Volume 9.1 fl (7.4-10.4); Monocytes Absolute Auto 0.5 K/mm3 (0.1-0.6); Monocytes Percent Auto 12.6 % (2.6-8.5); Neutrophils Absolute Auto 1.7 K/mm3 (1.3-6.7); Neutrophils Percent Auto 45.3 % (45.5-73.1); Platelet Count Result 220 k/mm3 (150-375); Red Blood Count 4.49 M/mm3 (4.6-6.20); Red Cell Distribution Width 15.1 % (11.5-14.5); White Blood Count 3.8 K/mm3 (4.5-10.0)
[2024-05-30 06:59] LABS: Alanine Aminotransferase 10 U/L (6-50); Albumin Level 3.3 g/dL (3.5-5.1); Alkaline Phosphatase 92 U/L (38-126); Anion Gap 4 mmol/L (4-12); Aspartate Amino Transferase 54 U/L (17-59); Bilirubin,Total 0.5 mg/dL (0.2-1.3); Blood Urea Nitrogen 23 mg/dL (9-20); Calcium 8.7 mg/dL (8.4-10.2); Carbon Dioxide 34 mmol/L (22-30); Chloride 98 mmol/L (98-107); Estimated CRCL calculation 80 ml/min; Estimated Glomerular Filt Rate > 60; Glucose 107 mg/dL (65-110); Potassium 4.2 mmol/L (3.4-5.0); Sodium 136 mmol/L (137-145)
--- NOTE | 2024-05-30 07:11 | PC.NURSE ---
[employer] reports pt urinated 425ml this am then residual bladder scan showed >450. Pt denies urge to urinate. Valdez inserted. Instant return of clear yellow urine approx 500 and continuing to flow.
[2024-05-30] MEDS: FLUTICASONE/UMECLIDIN/VILANTER 100-62.5-25 MCG ELLIPTA 1 PUFF INHALATION (07:32)
--- NOTE | 2024-05-30 08:23 | PM.PNPUL ---
Progress Note: A&P Assessment and Plan (1) Respiratory failure with hypoxia: Code(s): J96.91 - Respiratory failure, unspecified with hypoxia Status: Acute Assessment and Plan: Patient with hypoxic respiratory failure with an ABG today of 7.43/47/67 on 3 L nasal cannula. There is no evidence of chronic hypercarbic respiratory failure that would qualify him for noninvasive ventilation. Patient has a history of Parkinson's disease with neurogenic bladder, decreased mobility now in wheelchair for the last 3 weeks, history of silent aspiration and history of hypoxemia. He has severe restrictive lung disease on his PFTs from 05/03/2024. He has chronic elevation of the right greater than left hemidiaphragm were since 10/08/2021. 05/24/2024: Overnight oximetry on 3 L nasal cannula. Recording duration 6 hours and 35 minutes. Average saturation 92%. Low saturation 86%. Time with saturation less than or equal to 88% was 30 minutes or 8% of the monitored time. Oxygen desaturation index was 0.6. 05/25/2024: I was able to turn the patient to room air and after 20 minutes his saturations remain 95%. Of note the patient has Parkinson's with a tremor and the plethysmography tracing needs to be verified to ensure that it is inaccurate reading. Sniff test shows normal motion of the diaphragms. Etiology of patient's hypoxemic respiratory failure include: atelectasis, mucous plugging, chronic aspiration, possible reactive airway disease or COPD, bowel positioning between liver and diaphragm. I doubt recurrent pulmonary embolism, pneumonia or fluid overload. Plan: The patient intermittently requires oxygen suggesting that atelectasis and/or mucus plugging is a likely factor. The patient has been mostly bed-bound with some areas of atelectasis in the lower lobes right greater than left. Patient should continue incentive spirometry q.2 hours while awake. I will order a Cornet flutter valve as well as EzPAP treatment 3 times a day. There is no evidence of lobar collapse or mucus plugging on the CT scan. The patient has previously been evaluated for aspiration and he likely has silent aspiration and has worked with speech therapy previously. There is no evidence of chronic interstitial lung disease secondary to aspiration. The patient had a therapeutic benefit from trelegy inhaler prescribed as an outpatient. I will continue his trelegy inhaler 100. I will discontinue nebulized albuterol at this time. I will continue his Eliquis 5 q.12 for his prior history of PE. patient has a history of constipation and this is managed by hospitalists team. Since his oxygenation appears to have improved now, I will order another ApneaLink on room air tonight to determine if he still qualifies for oxygen at night. If the patient is overnight oximetry on room air demonstrates time with saturation less than or equal to 88% at less than 5 minutes he can be discharged without any supplemental oxygen at night. If her time with saturation less than or equal to 88% is greater than 5 minutes the test should be repeated on supplemental oxygen and repeat overnight oximetry should be performed to verify that time with saturation less than or equal to 88% becomes less than 5 minutes. Inpatient pulmonary consult services will resume on 05/28/2024. Discussed with Suzanna Allen, and the on speaker phone. Will follow with you. 05/28/2024: Earlier today room air saturations were 96%. Patient intermittently stopped answering questions and a code stroke was called. CT scan of the head was negative. Neurology is following. Patient has Kenny-Brandt respirations on physical exam. White blood cell count 9.0, creatinine 0.6. During the code stroke patient was placed on 3 L nasal cannula saturations 95%. Overnight oximetry on 2 L nasal cannula with recording duration 5 hours and 42 minutes, average saturation 92%. Low saturation 90%. Time with saturation less than or equal to 88% was 0 minutes, oxygen desaturation index was 0. Plan: Patient appears in no respiratory distress. Kenny-Brandt respirations indicate likely neurologic issue as his recent echocardiogram with normal LVEF. Will wean his oxygen to room air with goal saturation 90-94%. I will check an ABG to assess for hypercarbia. Continue trelegy 100, Cornet flutter valve, incentive spirometry, and EzPAP treatment. Continue 2 L nasal cannula at night. Patient with altered mental status and what appears to be an expressive aphasia. He did receive Xanax 0.25 last night, hold. Neurology has been involved and has ordered an EEG. Carotid Dopplers ordered. EEG normal. Carotid Dopplers less than 50% bilaterally. ABG on room air 7.51/35/54. Patient was placed on 2 L. 05/29/24: Patient is more awake this morning. He tells me his name, states that his May 2024 but does not know the date, states that bravo is a present in the [place], names a pen, pen cap and pocket clip correctly. Shows 2 fingers and wiggles toes to verbal commands. States he is breathing well and has no respiratory complaints. Denies cough, phlegm or hemoptysis. He is afebrile. White blood cell count 2.9, creatinine 0.9. When I enter the room he was on 2 L nasal cannula saturations 97%. I decreased him to room air and after 9 minutes his saturations were 94%. Plan: currently on room air at rest. Continue trelegy 100 inhaler, Cornet flutter valve, incentive spirometry, and EzPAP treatment. Continue 2 L nasal cannula at night. currently on room air at rest. out of bed to chair as tolerated. 05/30/24: is in the room. Patient is more awake and back to his baseline in the concurs. States he is breathing normal with no cough or phlegm production. He is afebrile. when I entered the room he was on 2 L nasal cannula which she should wear at night and his saturations were 100% I turned him to room air and after 11 minutes his saturations were 94%. White blood cell count 3.8, creatinine 0.8. Weight 95.9. He has no sinus congestion and will DC Claritin. From a pulmonary perspective patient is ready to be discharged on these pulmonary medications: Trelegy inhaler 100 - 62.5-25 at 1 puff q.day Rescue albuterol 2 puffs q.4 hours p.r.n. shortness of breath or wheezing Oxygen at rest and with ambulation per facilities protocol. Currently is on room air at rest with saturations 94%. Oxygen 2 L when naps or sleeps. Patient can keep his previously scheduled pulmonary appointment on 09/25/2024 at 10:45 a.m.. I spoke with the and the patient they can call the Pulmonary Clinic for any additional needs. Discussed with Shae Hughes. Will sign off. Call with questions. (2) Restrictive lung disease: Code(s): J98.4 - Other disorders of lung Status: Acute Assessment and Plan: Patient has a long history of small lung volume with elevated diaphragms. Chest x-rays dating back to 01/19/2013 shows small lung volumes there appeared to be an acute worsening between 03/18/2021 and 10/08/2021 with worsening elevation of the bilateral hemidiaphragms right greater than left. PFTs with severe restrictive abnormality on 05/03/2024 with no evidence of interstitial lung disease on his recent CT scans. Progressive Parkinson's can cause chest wall muscle rigidity contributing to his restrictive abnormality. Patient with constipation and his intestines are between his liver and his right hemidiaphragm. agree with continued treatment for constipation. Plan: Continued optimization of his Parkinson's treatment. Currently on carbidopa levodopa 25-100 at 3 tablets 4 times a day. Hospitalist managing constipation. Patient has a Valdez also for his neurogenic bladder. 05/28/24: Patient was voiding on his own. Patient with altered mental status and what appears to be an expressive aphasia. He did receive Xanax 0.25 last night. As above code stroke called. Plan: Neurology has been involved and has ordered an EEG. Carotid Dopplers ordered. 05/29/24: Continue optimization of his Parkinson's treatment, management pulmonary secretions, loratadine 10 mg q.day for sinus congestion. 05/30: States sinus congestion is resolved and according to the he only takes loratadine p.r.n.. Plan: Will DC standing loratadine. Subjective Date/time seen: 05/30/24 08:23 Interval history: 05/25/2024: This is a new pulmonary consult for hypoxia. 74-year-old with a history of Parkinson's, pulmonary embolism in December of 2023 on Xarelto, coronary artery disease status post stent, hypertension, neurogenic bladder. patient is followed in the Pulmonary Clinic and was last seen on 05/11/2024. This was a follow-up visit for from 03/20/2024. He was given a therapeutic trial of trelegy and he had improved on 05/11/2024. He had no longer coughing spells shortness of breath was better and his oxygenation had improved. Previously was admitted to [facility] and there were concerns that his Parkinson's had worsened. He had a history of neurogenic bladder, his activity had decreased, he had silent aspiration and had taken 2 antibiotics in 3 steroid since December of 2023.. 10/07/2020 after bronchodilator 05/03/2024 newest after BD FVC 2.64L, 55% NONE 1.97 L, 43% 1.67 L, 36%, -15 FEV1 1.98L, 56% 1.568 L, 48% 1.37 L, 40%, -12 FEV1/FVC 75% 79% 82% [id number]% 1.64 L, 64 % 1.49 L, 62% 1.66 L, 69%, +12 TLC 4.99, 64 % 5.46 L, 70% RV 2.14 L, 79% 2.13 L, 78% ERV RV/TLC 43% 39% DLCO 18.6, 68% 15.5, 59% DLCO/VA 4.28, 117% 5.38, 153% most recent PFTs on 05/03/2024 demonstrated a severe restrictive abnormality. On review of prior radiographs, patient has a long history of small lung volume with elevated diaphragms. Chest x-rays dating back to 01/19/2023 shows small lung volumes there appeared to be an acute worsening between 03/18/2021 and 10/08/2021 with worsening elevation of the bilateral hemidiaphragms right greater than left. I spoke to the and 2 years ago the patient was thought to have a mini-stroke but in fact it was Parkinson's disease. Ever since that time she states the patient has not been taking deep breaths. She tells me last week he was able to walk. He has been walking in rehab and around the house. She does not routinely measure his pulse oximetry. On 05/23/2024 patient presented to [facility] Room for generalized weakness and hypoxia. room air saturations were 89% and saturations were 94% on [address] angiogram of the chest showed no pulmonary embolism, no aortic dissection and low lung volumes with an elevated right hemidiaphragm. There is no evidence of interstitial lung disease, masses or pleural disease. 05/24/2024: Overnight oximetry on 3 L nasal cannula. Recording duration 6 hours and 35 minutes. Average saturation 92%. Low saturation 86%. Time with saturation less than or equal to 88% was 30 minutes or 8% of the monitored time. Oxygen desaturation index was 0.6. 05/25/2024: Patient with continued oxygen requirements of 3 L and had an ABG of 7.43/47/67 and I was consulted. currently the patient denies any shortness of breath, fever, chills, rigors, cough, phlegm production, chest tightness or hemoptysis. He tells me that his Parkinson's is getting worse and he told me he has not walked and 1-2 months but the said he had been walking up until 6 days ago. To his knowledge ease never worn oxygen previously. When I enter the room the patient was on 3 L nasal cannula saturations 94%. I turned him to room air and after 21 minutes his saturations were 95%. I watched the patient do incentive spirometry and he was pulling [id number] mL. Inpatient Pulmonary consult services will resume on 05/28/2024. 05/26/24: Overnight oximetry on room air: Recording duration 6 hours and 44 minutes. Average saturation 89%. Low saturation 77%. Time with saturation less than or equal to 88% was 178 minutes. Oxygen desaturation index 4.2. 05/28/2024: Earlier today room air saturations were 96%. Patient intermittently stopped answering questions and a code stroke was called. CT scan of the head was negative. Neurology is following. Patient has Kenny-Brandt respirations on physical exam. White blood cell count 9.0, creatinine 0.6. Overnight oximetry on 2 L nasal cannula with recording duration 5 hours and 42 minutes, average saturation 92%. Low saturation 90%. Time with saturation less than or equal to 88% was 0 minutes, oxygen desaturation index was 0. 05/29/24: Patient is more awake this morning. He tells me his name, states that his May 2024 but does not know the date, states that bravo is a present [place] the [place], names a pen, pen cap and pocket clip correctly. Shows 2 fingers and wiggles toes to verbal commands. States he is breathing well and has no respiratory complaints. Denies cough, phlegm or hemoptysis. He is afebrile. White blood cell count 2.9, creatinine 0.9. When I enter the room he was on 2 L nasal cannula saturations 97%. I decreased him to room air and after 9 minutes his saturations were 94%. 05/30/24: is in the room. Patient is more awake and back to his baseline in the concurs. States he is breathing normal with no cough or phlegm production. He is afebrile. when I entered the room he was on 2 L nasal cannula which she should wear at night and his saturations were 100% I turned him to room air and after 11 minutes his saturations were 94%. White blood cell count 3.8, creatinine 0.8. Weight 95.9. He has no sinus congestion and will DC Claritin. DATA: 05/25/24: EXAMINATION: XR sniff test with CXR2V DATE: 05/25/2024 14:48 INDICATION: Elevated right hemidiaphragm. TECHNIQUE: Frontal and lateral views of the chest were obtained. I performed fluoroscopy of the chest while the patient performed normal breathing, deep respiration, and forceful sniffing. The number of fluoroscopy images was 904. The fluoroscopy time was 0.5 minutes. COMPARISON: Chest CT 05/23/2024, chest 2 views 05/23/2024 FINDINGS: CHEST TWO VIEWS: The lung volumes are small. There is mild relative elevation of right hemidiaphragm. There is mild atelectasis at the lung bases. There is a small left pleural effusion. No pneumothorax. The heart size is normal. SNIFF TEST: There is normal and symmetric motion of the right and left sides of the diaphragm. IMPRESSION: 1. Small lung volumes with mild atelectasis at the lung bases. 2. Normal motion of the diaphragm. 3. Small left pleural effusion. 05/23/24: EXAMINATION: CTA chest PE protocol INDICATION: Shortness of breath, pulmonary embolus suspected clinically COMPARISON: 03/23/2024 and 11/29/2023 FINDINGS: No filling defect is identified within the main or proximal pulmonary arteries. Extremely low lung volumes are detected secondary to elevation of the right hemidiaphragm (unchanged from prior). The thoracic aorta is unremarkable, without aneurysmal dilatation or dissection. The lungs demonstrate pulmonary vascular crowding, but are unremarkable. Within the upper abdomen: Significant elevation of the right hemidiaphragm. The gallbladder is only minimally distended but otherwise unremarkable. The bilateral kidneys are without calcified stones. IMPRESSION: No pulmonary embolism No aortic dissection. Extremely low lung volumes secondary to elevation of the right hemidiaphragm, unchanged from prior studies. 05/03/24: This is a pulmonary function test with pre and post-bronchodilator spirometry, plethysmography and diffusing capacity. The test was performed and results interpreted in accordance with the 2019 and 2005 ATS/ERS Task Force guidelines respectively using the Global Lung Function Initiative-2012 reference equations. Patient demonstrated good effort and cooperation. Reproducibility criteria were met. The quality of the pre bronchodilator spirometry maneuver was Grade B and post bronchodilator spirometry maneuver was Grade B. Of note, patient has Parkinson's disease and did all testing to the best of his ability. Findings: Spirometry: The contour the inspiratory and expiratory flow tracing are normal. The pre bronchodilator FVC is 1.97 L, 43% predicted. The pre bronchodilator FEV1 is 1.56 L, 46% predicted. The pre bronchodilator FEV1: FVC ratio 79%. The post bronchodilator FVC is 1.67 L, representing a 15% decrease. The post bronchodilator FEV1 is 1.37 L, representing a 12% decrease. The post bronchodilator FEV1: FVC ratio is 82%. Plethysmography: The total lung capacity is 5.46 L, 70% predicted. The functional residual capacity is 2.15 L, 50% predicted. The residual volume is 2.13 L, 76% predicted. Diffusing capacity: The diffusing capacity unadjusted for hemoglobin and carboxyhemoglobin is 15.5, 59% predicted. Diffusing capacity adjusted for alveolar volume is 5.38, 153% predicted. Impression: There is a severe restrictive ventilatory abnormality. The spirometry is normal without evidence of an obstructive abnormality. There is a significant decrease in the post bronchodilator FVC and FEV1 consistent with a possible paradoxical bronchoconstriction after inhaled albuterol. Clinical correlation is recommended. The diffusing capacity unadjusted for hemoglobin and carboxyhemoglobin is moderately decreased and is increased when adjusted for alveolar volume. 03/23/2024: EXAMINATION: CT diagnostic chest wo con DATE: 03/23/2024 14:20 INDICATION: R05.3 - Chronic cough TECHNIQUE: Computed tomography (CT) of the chest was performed without intravenous contrast. Additional 3D reconstructions utilizing coronal maximum intensity projection (MIP) were performed. Automated exposure control and iterative reconstruction technique were employed. The dose-length product was 371.21 mGy-cm. COMPARISON: 11/29/2023 FINDINGS: There is elevation right hemidiaphragm with mild right basilar atelectasis. Unchanged band of discoid atelectasis/scarring in the right lower lobe. There are couple unchanged 3-4 mm nodules at the peripheral left upper lobe consistent with old granulomatous disease. No pneumonia, pulmonary edema, pleural effusion and pneumothorax. Heart size is normal. Atherosclerotic coronary artery calcifications. No pericardial effusion. Thoracic aorta is normal in caliber. No pathologically enlarged thoracic lymphadenopathy. Severe lower cervical and upper thoracic spondylosis. Moderate spondylosis in the mid to lower thoracic spine with chronic mild anterior wedging at T9. Unchanged lucent T10 hemangioma. IMPRESSION: 1. Chronic elevation the right lower lobe with atelectasis/scarring at the right lung base and right lower lobe. No acute cardiopulmonary disease. Review of Systems Review of Systems: ROS unobtainable: Yes unobtainable due to medical condition Constitutional: Constitutional: Reports no additional constitutional complaints Eyes: Eyes: Reports no additional eye complaints ENT: Reports system reviewed and no additional complaints, except as documented Cardiovascular: Cardiovascular: Reports no additional cardiovascular complaints Respiratory: Respiratory: Reports no additional respiratory complaints Gastrointestinal: Gastrointestinal: Reports no additional gastrointestinal complaints Musculoskeletal: Musculoskeletal: Reports no additional musculoskeletal complaints Neurologic: Reports system reviewed and no additional complaints, except as documented Psychiatric: Psychiatric: Reports no additional psychiatric complaints Endocrine: Endocrine: Reports no additional endocrine complaints Hematologic/Lymphatic: Hematologic/Lymphatic: Reports no additional hematologic/lymphatic complaints Allergic/Immunologic: Allergic/Immunologic: Reports no additional allergic/immunologic complaints Exam Const: General: cooperative, comfortable and no acute distress Orientation/consciousness: oriented to person, oriented to place and oriented to time HENMT: Head: normal to inspection Ears: hearing grossly normal bilaterally Eyes: General: appearance normal, both eyes and all related structures Neck: Neck: normal visual inspection Chest: Chest palpation & inspection: normal inspection of the chest Resp: Effort & Inspection: normal respiratory effort and able to speak in complete sentences Auscultation: crackles, no rales, no rhonchi, no wheezes and lung sounds not diminished Other: Few basilar crackles. Cardio: Jugular venous distension: no JVD GI: Inspection: normal to inspection Skin: General skin exam: normal color Neuro: General: oriented to person, oriented to place and oriented to time Extrem: General: normal to inspection and edema Psych: Appearance: grossly normal Objective Data Vital Signs Vital Signs: Vital Signs - 24 hr 05/29/24 13:51 05/29/24 13:53 05/29/24 13:53 Temperature 36.2 C L Pulse Rate 73 Respiratory Rate 18 Blood Pressure 108/62 Pulse Oximetry 90 87 L 90 Oxygen Delivery Room Air Nasal Cannula Oxygen Flow Rate 0.5 05/29/24 12:00 05/29/24 16:00 05/29/24 20:00 Temperature Pulse Rate 78 74 80 Respiratory Rate Blood Pressure Pulse Oximetry Oxygen Delivery Oxygen Flow Rate 05/29/24 20:55 05/30/24 00:00 05/29/24 23:55 Temperature 36.3 C L 36.1 C L Pulse Rate 72 65 68 Respiratory Rate 20 16 Blood Pressure 127/90 110/74 Pulse Oximetry 91 95 Oxygen Delivery Oxygen Flow Rate 05/30/24 04:00 05/30/24 04:55 05/30/24 08:00 Temperature 35.9 C L 36.1 C L Pulse Rate 55 L 61 68 Respiratory Rate 16 18 Blood Pressure 124/68 114/70 Pulse Oximetry 96 95 Oxygen Delivery Oxygen Flow Rate Intake/Output Intake/Output: Intake & Output 05/27/24 05/28/24 05/29/24 05/30/24 23:59 23:59 23:59 23:59 Intake Total 2348 1922 3266 Output Total 2950 1825 1375 Balance -602 1922 1441 -1375 Meds/Results Medications: Active Medications Generic Name Dose Route Start Last Admin Trade Name Freq PRN Reason Stop Dose Admin Acetaminophen 650 mg 05/26/24 17:47 05/29/24 20:06 Acetaminophen 325 Mg Tablet PO 650 mg Q6H PRN Administration Mild Pain (1-3) or Fever Albuterol 2.5 mg 05/25/24 15:41 Albuterol Sulfate Neb 2.5 Mg/3 Ml Inh INHALATION Q4H PRN Wheezing Alprazolam 0.25 mg 05/25/24 21:10 05/27/24 20:45 Alprazolam (*Crx) 0.25 Mg Tablet PO 0.25 mg TID PRN Administration Anxiety Apixaban 5 mg 05/24/24 09:00 05/29/24 20:06 Apixaban 5 Mg Tablet PO 5 mg Q12HR KOFI Administration Ascorbic Acid 1,000 mg 05/24/24 09:00 05/29/24 08:09 Ascorbic Acid 500 Mg Tablet PO 1,000 mg DAILY KOFI Administration Aspirin 81 mg 05/24/24 21:00 05/29/24 20:06 Aspirin 81 Mg Enteric Tablet PO 81 mg HS KOFI Administration Atorvastatin Calcium 40 mg 05/24/24 21:00 05/29/24 20:06 Atorvastatin 40 Mg Tablet PO 40 mg HS KOFI Administration Brimonidine Tartrate 1 drop 05/24/24 09:00 05/29/24 20:07 Brimonidine Tartrate 0.2% Op Soln 5 Ml Btl EACH EYE 1 drop Q12HR KOFI Administration Carbidopa/Levodopa 3 tablet 05/26/24 16:00 05/29/24 20:05 Carbidopa/Levodopa 25/100 Mg Tablet PO 3 tablet QID@0800,1200,1600,2000 KOFI Administration Diclofenac Sodium 1 applic 05/24/24 09:00 05/29/24 20:07 Diclofenac Sodium 1% 100 Gm Gel (*[facility]) TOPICAL 1 applic QID KOFI Administration Duloxetine HCl 60 mg 05/24/24 09:00 05/29/24 08:09 Duloxetine Hcl 60 Mg Capsule.Dr PO 60 mg QAM KOFI Administration Ferrous Sulfate 325 mg 05/25/24 10:45 05/29/24 08:09 Ferrous Sulfate [address] PO 325 mg DAILY KOFI Administration Fluticasone/Umeclidinium/Vilanterol 1 puff 05/24/24 08:00 05/30/24 07:32 Fluticasone/Umeclidin/Vilanter 100-62.5-25 Mcg Ellipta INHALATION 1 puff DAILYRT KOFI Administration Folic Acid 0.4 mg 05/24/24 09:00 05/29/24 08:09 Folic Acid 0.4 Mg Tablet PO 0.4 mg DAILY KOFI Administration Furosemide 20 mg 05/29/24 09:00 05/29/24 08:09 Furosemide 20 Mg Tablet PO 20 mg DAILY KOFI Administration Lisinopril 10 mg 05/24/24 09:00 05/29/24 08:10 Lisinopril 10 Mg Tablet PO 10 mg DAILY KOFI Administration Loratadine 10 mg 05/24/24 09:00 05/29/24 08:10 Loratadine 10 Mg Tablet PO 10 mg QAM KOFI Administration Magnesium Oxide 400 mg 05/24/24 09:00 05/29/24 08:09 Magnesium Oxide 400 Mg Tablet PO 400 mg DAILY KOFI Administration Melatonin 5 mg 05/24/24 21:00 05/29/24 20:05 Melatonin 5 Mg Tablet PO 5 mg HS KOFI Administration Multivitamins/Minerals 1 tab 05/24/24 09:00 05/29/24 08:09 Multivitamins /C Lutein (Centrum Silver) Tablet *Bkc PO 1 tab QAM KOFI Administration * Home Med * D- 1,000 mg 05/30/24 09:00 Mannose 500 Mg PO 06/29/24 08:59 Capsule DAILY KOFI Oxybutynin Chloride 5 mg 05/24/24 09:00 05/24/24 09:10 Oxybutynin Chloride Xl 5 Mg Tab.Er.24 PO 5 mg DAILY KOFI Administration Pantoprazole Sodium 40 mg 05/24/24 09:00 05/29/24 08:10 Pantoprazole 40 Mg Tablet PO 40 mg QAM KOFI Administration Polyethylene Glycol 17 gm 05/24/24 11:30 05/29/24 08:09 Polyethylene Glycol 3350 17 Gm Powd.Pack PO 17 gm QAM KOFI Administration Pregabalin 150 mg 05/24/24 21:00 05/29/24 20:05 Pregabalin (*Crx) 75 Mg Capsule PO 150 mg HS KOFI Administration Quetiapine Fumarate 50 mg 05/24/24 09:00 05/29/24 20:05 Quetiapine Fumarate 25 Mg Tablet PO 50 mg Q12HR KOFI Administration Senna/Docusate Sodium 1 tab 05/24/24 21:00 05/29/24 20:04 Senna/Docusate Sodium Tablet PO 1 tab HS KOFI Administration Tamsulosin HCl 0.4 mg 05/25/24 10:45 05/29/24 08:09 Tamsulosin Hcl 0.4 Mg Capsule PO 0.4 mg QAM KOFI Administration Timolol Maleate 1 drop 05/24/24 09:00 05/29/24 20:07 Timolol Maleate 0.5% Op Soln 5 Ml Bottle EACH EYE 1 drop Q12HR KOFI Administration Tobramycin/Dexamethasone 1 applic 05/26/24 21:00 05/29/24 20:07 Tobramycin/Dexamethasone Op Oint 3.5 Gm Tube RIGHT EYE 1 applic 2100 KOFI Administration Vitamin B Complex/Vitamin C 1 each 05/24/24 09:00 05/29/24 08:09 Vitamin B Complex/Vit C Capsule PO 1 each DAILY KOFI Administration Radiology Results: ITS Impressions Chest X-Ray 05/23/24 13:06 IMPRESSION: No acute cardiopulmonary pathology. Chest CTA 05/23/24 18:49 IMPRESSION: No pulmonary embolism No aortic dissection. Extremely low lung volumes secondary to elevation of the right hemidiaphragm, unchanged from prior studies. Venous Doppler Study 05/25/24 14:24 IMPRESSION: 1. No deep venous thrombosis. Chest Fluoroscopy 05/25/24 14:58 IMPRESSION: 1. Small lung volumes with mild atelectasis at the lung bases. 2. Normal motion of the diaphragm. 3. Small left pleural effusion. Head CT 05/28/24 09:42 Impression: No acute intracranial abnormality seen. Case discussed with Miladis Allen at 9:45 AM on 05/28/2024. Carotid Doppler Study 05/28/24 15:07 IMPRESSION: 1. <50% stenosis in the right internal carotid artery. 2. <50% stenosis in the left internal carotid artery. Brain MRI 05/29/24 13:38 IMPRESSION: 1. No acute intracranial process. 2. No abnormal enhancement. 3. Brain atrophy with deep white matter ischemic changes and ventricular dilatation. Labs Labs: Laboratory Results - last 24 hr 05/29/24 05/30/24 08:15 06:00 WBC 3.0 L 3.8 L RBC 4.74 4.49 L Hgb 12.7 L 12.0 L Hct 40.1 L 38.2 L MCV 84.6 85.1 MCH 26.8 26.7 MCHC 31.7 L 31.4 L RDW 15.0 H 15.1 H Plt Count 211 220 MPV 8.6 9.1 Immature Gran % (Auto) 0.3 0.5 Neut % (Auto) 61.3 45.3 L Lymph % (Auto) 19.5 32.6 [place] % (Auto) 14.5 H 12.6 H Eos % (Auto) 3.7 8.2 H Baso % (Auto) 0.7 0.8 Lymph # (Auto) 0.58 L 1.24 [place] # (Auto) 0.4 0.5 Eos # (Auto) 0.1 0.3 Baso # (Auto) 0.0 0.0 Abs Immat Gran (auto) 0.01 0.02 Absolute Neuts (auto) 1.8 1.7 Absolute Nucleated RBC 0.000 0.000 Nucleated RBC % 0.0 0.0 Sodium 136 L Potassium 4.2 Chloride 98 Carbon Dioxide 34 H Anion Gap 4 BUN 23 H Creatinine 0.80 Estim Creat Clear Calc 80 Estimated GFR > 60 Glucose 107 Calcium 8.7 Total Bilirubin 0.5 AST 54 ALT 10 Alkaline Phosphatase 92 Total Protein 7.0 Albumin 3.3 L
[2024-05-30] MEDS: CARBIDOPA/LEVODOPA 25/100 MG TABLET 3 TABLET PO ×4 (08:45→21:06)
[2024-05-30] MEDS: VITAMIN B COMPLEX/VIT C CAPSULE 1 EACH PO (08:45)
[2024-05-30] MEDS: TAMSULOSIN HCL 0.4 MG CAPSULE PO (08:46)
[2024-05-30] MEDS: FUROSEMIDE 20 MG TABLET PO (08:46)
[2024-05-30] MEDS: ASCORBIC ACID 500 MG TABLET 1000 MG PO (08:46)
[2024-05-30] MEDS: PANTOPRAZOLE 40 MG TABLET PO (08:46)
[2024-05-30] MEDS: MAGNESIUM OXIDE 400 MG TABLET PO (08:46)
[2024-05-30] MEDS: lisinopriL 10 MG TABLET PO (08:46)
[2024-05-30] MEDS: FERROUS SULFATE 325 MG TABLET DR PO (08:46)
[2024-05-30] MEDS: APIXABAN 5 MG TABLET PO ×2 (08:46→21:07)
[2024-05-30] MEDS: FOLIC ACID 0.4 MG TABLET PO (08:46)
[2024-05-30] MEDS: polyethylene glycoL 3350 17 GM POWD.PACK PO (08:47)
[2024-05-30] MEDS: DULoxetine HCL 60 MG CAPSULE.DR PO (08:47)
[2024-05-30] MEDS: QUEtiapine FUMARATE 25 MG TABLET 50 MG PO ×2 (08:47→21:07)
[2024-05-30] MEDS: BRIMONIDINE TARTRATE 0.2% OP SOLN 5 ML BTL 1 DROP EACH EYE ×2 (08:47→21:07)
[2024-05-30] MEDS: DICLOFENAC SODIUM 1% 100 GM GEL (*BKC) 1 APPLIC TOPICAL ×4 (08:48→21:07)
[2024-05-30] MEDS: TIMOLOL MALEATE 0.5% OP SOLN 5 ML BOTTLE 1 DROP EACH EYE ×2 (08:48→21:07)
[2024-05-30] MEDS: MULTIVITAMINS /C LUTEIN (CENTRUM SILVER) TABLET *BKC 1 TAB PO (08:48)
[2024-05-30] MEDS: D MANNOSE 500 MG 1000 EACH PO (08:49)
--- NOTE | 2024-05-30 16:14 | P.PNIM_ITS ---
Progress Note: A&P Assessment and Plan (1) Altered mental status: Code(s): R41.82 - Altered mental status, unspecified Status: Acute Assessment and Plan: Patient had acute episode of altered mental status with expressive dysphagia. He does not seem to have unilateral weakness. He has upper arm drift, bilateral lower extremities with no effort against gravity. Code stroke was called. Dr Dias responded to code stroke. CT head non-contrast was ordered and was negative. * Patient had a CTA head/neck from 04/06/24 showed 20% stenosis on the left side. Per neurology, since CTA was so recent no need to repeat. * Will obtain bilateral carotid Doppler which showed less than 50% occlusion * Stopping Xanax, although this is unlikely the cause * reassessment later in the day and the patient was completely back to his baseline. He had no recollection of the days events. * Telemetry showed NSR with bigeminal PVCs which resolved later in the day. Now NSR with occasional PVC. * Troponin negative x 3, ECHO was completed on 05/25/24 showed LV systolic function normal with EF 60-65%, LV diastolic function is indeterminate, mild pulmonary hypertension estimated PA pressure 42. Trace mitral and tricuspid valve regurgitation. * EEG was read as essentially normal * Will get brain MRI today * consider TIA vs partial seizure vs arrhythmia (2) Mixed restrictive and obstructive lung disease: Code(s): J43.9 - Emphysema, unspecified; J98.4 - Other disorders of lung Status: Acute Assessment and Plan: - new transient O2 requirement: 5L NC, no previous requirement. Was weaned to room air overnight but then desatted to 87%. Now on 3 L. - viral PCR negative - CXR No acute cardiopulmonary pathology. - Chest CTA No pulmonary embolism No aortic dissection. Extremely low lung volumes secondary to elevation of the right hemidiaphragm, unchanged from prior studies. - duoneb [place], continue home inhalers -he does have right lower lobe crackles and bilateral lower extremity pitting edema. He takes Lasix as needed at home for swelling. Will diurese with 1 time of IV Lasix 40 mg a day. -wean oxygen to room air -ABG ordered today given persistent hypoxia and o2 requirement. He has a degree of obstructive lung disease low lung volumes with right evita-diaphragm elevation. -apnea link was preformed and showed o2 desaturation less than 88% for 178 minutes. Repeat apnea link on 2 L NC showed less than 90% desaturation 31 minutes. Patient will require nocturnal oxygen at 2 L NC. -SNIFF test ordered by pulmonology and was normal -repeat Abg showed respiratory alkalosis -pulmonology was consulted and recs a appreciated - pulmonology rec's added to discharge * Ok for discharge weaned to RA (3) Parkinson's disease with dyskinesia and fluctuating manifestations: Code(s): G20.B2 - Parkinson's disease with dyskinesia, with fluctuations Status: Acute Assessment and Plan: - weakness may be manifestation/progression of Parkinson's - continue carbidopa-levodopa - fall precautions - PT/OT eval and treat - care coordination consult - feels she cannot safely care for him at home, care coordination consulted - was planning for discharge today to swing bed at [place] or [place] however with acute mental status change patient will remain inpatient. 05/30/2024: * Patient alert and oriented x 4 today * discharge to swing in [place] tomorrow (4) Essential (primary) hypertension: Code(s): I10 - Essential (primary) hypertension Status: Chronic Assessment and Plan: - chronic, currently 117/71 - continue home medications: Lisinopril 10 mg daily - monitor blood pressures (5) Urinary retention: Code(s): R33.9 - Retention of urine, unspecified Status: Acute Assessment and Plan: Patient required intermittent straight catheterization in the emergency room and again this morning. Straight cath yielded 750 mils. Patient did not have the urge to void and was able to empty his bladder independently. * Patient is on oxybutynin for overactive bladder. Urinary retention can occur with this medication. Hold for now. * Patient is also constipated so this could be contributing. Bowel regimen ordered. Added suppository for today. Gut decompression with also assist with lung expansion. * Added Flomax * Now that he has had a bowel movement we can discontinue the [place] catheter and attempt a void trial * Voiding spontaneously, check post void bladder scan (6) Bilateral lower extremity edema: Code(s): R60.0 - Localized edema Status: Acute Assessment and Plan: - patient also has bilateral lower extremity edema. Swelling has improved after a dose of IV Lasix but he has lower extremity calf discomfort. - suspect discomfort is from the swelling in his legs and immobility. is concerned about a blood clot. Less likely that a clot is present given his allan tment with Eliquis but will order venous ultrasound to officially rule out. - Tylenol for pain control - history of diastolic grade 1 disfunction. Repeat ECHO shows LV systolic function normal, LV diastolic function indeterminate, mild pulmonary hypertension, mild trace tricuspid and mitral valve regurg - lasix 20 mg daily Plan Code status: Full code per patient DVT prophylaxis: Eliquis Stress ulcer prophylaxis: Protonix 40 daily PT/OT notes: Swing Bed Disposition: Patient continues admission to the medical unit for continued treatment for acute respiratory failure with hypoxia plan for discharge to [facility] in the morning family to transport. Time Spent With Patient Time with patient: 15 - 25 minutes Subjective Date/time seen: 05/30/24 16:14 Interval history: Patient is a 74-year-old male who was admitted for evaluation and treatment generalized weakness, altered mental status, acute respiratory failure with hypoxia, and worsening Parkinson's. 05/30/2024: Assumed Care Patient up in chair working with physical therapy patient is moving all extremities and is alert oriented x4 he is answering all questions appropriately. Patient denies any chest pain, shortness a breath, nausea, vomiting, dizziness, visual changes but did report improvement to strength. Plan is discharge to swing for continued physical and occupational therapy tomorrow Review of Systems Review of Systems: All systems reviewed & are unremarkable except as noted in HPI and below Exam Narrative: General: appears comfortable, in no acute distress, weaned off 2L supplemental oxygen, at bedside Respiratory: breathing is unlabored with even chest rise/fall, lung sounds are diminished. Cardiovascular: Rate and rhythm regular, normal s1s2, no murmur Abdomen: Soft, round, non-tender, active bowel sounds Extremities: No cyanosis, +1 pitting edema to bilateral lower extremities, no clubbing. Pulses 2/2. Neuro: a&ox4, moves all extremities against gravity. Skin: Warm, dry, intact Objective Data Vital Signs Vital Signs: Vital Signs - 24 hr 05/29/24 20:00 05/29/24 20:55 05/30/24 00:00 Temperature 97.3 F L Pulse Rate 80 72 65 Respiratory Rate 20 Blood Pressure 127/90 Pulse Oximetry 91 Oxygen Delivery Oxygen Flow Rate 05/29/24 23:55 05/30/24 04:00 05/30/24 04:55 Temperature 97 F L 96.7 F L Pulse Rate 68 55 L 61 Respiratory Rate 16 16 Blood Pressure 110/74 124/68 Pulse Oximetry 95 96 Oxygen Delivery Oxygen Flow Rate 05/30/24 08:00 05/30/24 07:30 05/30/24 07:30 Temperature 97.0 F L Pulse Rate 68 80 80 Respiratory Rate 18 18 18 Blood Pressure 114/70 Pulse Oximetry 95 91 Oxygen Delivery Nasal Cannula Oxygen Flow Rate 2 05/30/24 08:00 05/30/24 12:00 05/30/24 12:00 Temperature 98.2 F Pulse Rate 78 82 Respiratory Rate 18 Blood Pressure 107/74 Pulse Oximetry 91 Oxygen Delivery Room Air Oxygen Flow Rate 05/30/24 16:00 Temperature 97.9 F Pulse Rate 71 Respiratory Rate 18 Blood Pressure 110/68 Pulse Oximetry 92 Oxygen Delivery Oxygen Flow Rate Intake/Output Intake/Output: Intake & Output 05/27/24 05/28/24 05/29/24 05/30/24 23:59 23:59 23:59 23:59 Intake Total 2348 1922 3266 944 Output Total 2950 0245 1975 Balance -602 1922 1441 -1031 Meds/Results Medications: Active Medications Generic Name Dose Route Start Last Admin Trade Name Freq PRN Reason Stop Dose Admin Acetaminophen 650 mg 05/26/24 17:47 05/29/24 20:06 Acetaminophen 325 Mg Tablet PO 650 mg Q6H PRN Administration Mild Pain (1-3) or Fever Albuterol 2.5 mg 05/25/24 15:41 Albuterol Sulfate Neb 2.5 Mg/3 Ml Inh INHALATION Q4H PRN Wheezing Alprazolam 0.25 mg 05/25/24 21:10 05/27/24 20:45 Alprazolam (*Crx) 0.25 Mg Tablet PO 0.25 mg TID PRN Administration Anxiety Apixaban 5 mg 05/24/24 09:00 05/30/24 08:46 Apixaban 5 Mg Tablet PO 5 mg Q12HR MEDINA Administration Ascorbic Acid 1,000 mg 05/24/24 09:00 05/30/24 08:46 Ascorbic Acid 500 Mg Tablet PO 1,000 mg DAILY MEDINA Administration Aspirin 81 mg 05/24/24 21:00 05/29/24 20:06 Aspirin 81 Mg Enteric Tablet PO 81 mg HS MEDINA Administration Atorvastatin Calcium 40 mg 05/24/24 21:00 05/29/24 20:06 Atorvastatin 40 Mg Tablet PO 40 mg HS MEDINA Administration Brimonidine Tartrate 1 drop 05/24/24 09:00 05/30/24 08:47 Brimonidine Tartrate 0.2% Op Soln 5 Ml Btl EACH EYE 1 drop Q12HR MEDINA Administration Carbidopa/Levodopa 3 tablet 05/26/24 16:00 05/30/24 12:13 Carbidopa/Levodopa 25/100 Mg Tablet PO 3 tablet QID@0800,1200,1600,2000 MEDINA Administration Diclofenac Sodium 1 applic 05/24/24 09:00 05/30/24 12:15 Diclofenac Sodium 1% 100 Gm Gel (*Bkc) TOPICAL 1 applic QID MEDINA Administration Duloxetine HCl 60 mg 05/24/24 09:00 05/30/24 08:47 Duloxetine Hcl 60 Mg Capsule. PO 60 mg QAM MEDINA Administration Ferrous Sulfate 325 mg 05/25/24 10:45 05/30/24 08:46 Ferrous Sulfate [address] PO 325 mg DAILY MEDINA Administration Fluticasone/Umeclidinium/Vilanterol 1 puff 05/24/24 08:00 05/30/24 07:32 Fluticasone/Umeclidin/Vilanter 100-62.5-25 Mcg Ellipta INHALATION 1 puff DAILYRT MEDINA Administration Folic Acid 0.4 mg 05/24/24 09:00 05/30/24 08:46 Folic Acid 0.4 Mg Tablet PO 0.4 mg DAILY MEDINA Administration Furosemide 20 mg 05/29/24 09:00 05/30/24 08:46 Furosemide 20 Mg Tablet PO 20 mg DAILY MEDINA Administration Lisinopril 10 mg 05/24/24 09:00 05/30/24 08:46 Lisinopril 10 Mg Tablet PO 10 mg DAILY MEDINA Administration Magnesium Oxide 400 mg 05/24/24 09:00 05/30/24 08:46 Magnesium Oxide 400 Mg Tablet PO 400 mg DAILY MEDINA Administration Melatonin 5 mg 05/24/24 21:00 05/29/24 20:05 Melatonin 5 Mg Tablet PO 5 mg HS MEDINA Administration Multivitamins/Minerals 1 tab 05/24/24 09:00 05/30/24 08:48 Multivitamins /C Lutein (Centrum Silver) Tablet *Bkc PO 1 tab QAM MEDINA Administration * Home Med * D- 1,000 mg 05/30/24 09:00 05/30/24 08:49 [place] 500 Mg PO 06/29/24 08:59 1,000 mg Capsule DAILY MEDINA Administration Oxybutynin Chloride 5 mg 05/24/24 09:00 05/24/24 09:10 Oxybutynin Chloride Xl 5 Mg Tab.Er.24 PO 5 mg DAILY MEDINA Administration Pantoprazole Sodium 40 mg 05/24/24 09:00 05/30/24 08:46 Pantoprazole 40 Mg Tablet PO 40 mg QAM MEDINA Administration Polyethylene Glycol 17 gm 05/24/24 11:30 05/30/24 08:47 Polyethylene Glycol 3350 17 Gm Powd.Pack PO 17 gm QAM MEDINA Administration Pregabalin 150 mg 05/24/24 21:00 05/29/24 20:05 Pregabalin (*Crx) 75 Mg Capsule PO 150 mg HS MEDINA Administration Quetiapine Fumarate 50 mg 05/24/24 09:00 05/30/24 08:47 Quetiapine Fumarate 25 Mg Tablet PO 50 mg Q12HR MEDINA Administration Senna/Docusate Sodium 1 tab 05/24/24 21:00 05/29/24 20:04 Senna/Docusate Sodium Tablet PO 1 tab HS MEDINA Administration Tamsulosin HCl 0.4 mg 05/25/24 10:45 05/30/24 08:46 Tamsulosin Hcl 0.4 Mg Capsule PO 0.4 mg QAM MEDINA Administration Timolol Maleate 1 drop 05/24/24 09:00 05/30/24 08:48 Timolol Maleate 0.5% Op Soln 5 Ml Bottle EACH EYE 1 drop Q12HR MEDINA Administration Tobramycin/Dexamethasone 1 applic 05/26/24 21:00 05/29/24 20:07 Tobramycin/Dexamethasone Op Oint 3.5 Gm Tube RIGHT EYE 1 applic 2100 MEDINA Administration Vitamin B Complex/Vitamin C 1 each 05/24/24 09:00 05/30/24 08:45 Vitamin B Complex/Vit C Capsule PO 1 each DAILY MEDINA Administration Radiology Results: ITS Impressions Chest X-Ray 05/23/24 13:06 IMPRESSION: No acute cardiopulmonary pathology. Chest CTA 05/23/24 18:49 IMPRESSION: No pulmonary embolism No aortic dissection. Extremely low lung volumes secondary to elevation of the right hemidiaphragm, unchanged from prior studies. Venous Doppler Study 05/25/24 14:24 IMPRESSION: 1. No deep venous thrombosis. Chest Fluoroscopy 05/25/24 14:58 IMPRESSION: 1. Small lung volumes with mild atelectasis at the lung bases. 2. Normal motion of the diaphragm. 3. Small left pleural effusion. Head CT 05/28/24 09:42 Impression: No acute intracranial abnormality seen. Case discussed with Miladis Allen at 9:45 AM on 05/28/2024. Carotid Doppler Study 05/28/24 15:07 IMPRESSION: 1. <50% stenosis in the right internal carotid artery. 2. <50% stenosis in the left internal carotid artery. Brain MRI 05/29/24 13:38 IMPRESSION: 1. No acute intracranial process. 2. No abnormal enhancement. 3. Brain atrophy with deep white matter ischemic changes and ventricular dilatation. Labs Labs: Laboratory Results - last 24 hr 05/30/24 06:00 WBC 3.8 L RBC 4.49 L Hgb 12.0 L Hct 38.2 L MCV 85.1 MCH 26.7 MCHC 31.4 L RDW 15.1 H Plt Count 220 MPV 9.1 Immature Gran % (Auto) 0.5 Neut % (Auto) 45.3 L Lymph % (Auto) 32.6 [place] % (Auto) 12.6 H Eos % (Auto) 8.2 H Baso % (Auto) 0.8 Lymph # (Auto) 1.24 [place] # (Auto) 0.5 Eos # (Auto) 0.3 Baso # (Auto) 0.0 Abs Immat Gran (auto) 0.02 Absolute Neuts (auto) 1.7 Absolute Nucleated RBC 0.000 Nucleated RBC % 0.0 Sodium 136 L Potassium 4.2 Chloride 98 Carbon Dioxide 34 H Anion Gap 4 BUN 23 H Creatinine 0.80 Estim Creat Clear Calc 80 Estimated GFR > 60 Glucose 107 Calcium 8.7 Total Bilirubin 0.5 AST 54 ALT 10 Alkaline Phosphatase 92 Total Protein 7.0 Albumin 3.3 L Quality VTE Prophylaxis VTE prophylaxis: pharmacologic ordered -Patient's previous records reviewed on admission -ER notes reviewed in detail on admission -discussed all findings and current treatment plan with patient/Family/POA -Consultations reviewed for recommendations -Patient's disposition for safe discharge discussed with sample case porter Dictation performed by [employer] direct speech recognition software, therefore rubber tire curer variants and typographical errors may occur. Hospitalist [facility] Advance Care Plan I have confirmed that the patient's Advanced Care Plan is present, code status is documented, or surrogate decision maker is listed in patient medical record.: Yes Medication Reconciliation I have utilized all available resources to obtain, update and review the patients current medications (includes all prescriptions, OTC, herbals, cannabis, and nutritional supplements).: Yes The patient is not eligible for med reconciliation; the patient is in a emergent medical situation where delaying treatment would jeopardize the patients health.: No
[2024-05-30] MEDS: ASPIRIN 81 MG ENTERIC TABLET PO (21:07)
[2024-05-30] MEDS: ATORVASTATIN 40 MG TABLET PO (21:07)
[2024-05-30] MEDS: [UNRECOGNIZED DRUG - OTHER] RIGHT EYE (21:07)
[2024-05-30] MEDS: SENNA/DOCUSATE SODIUM TABLET 1 TAB PO (21:07)
[2024-05-30] MEDS: TOBRAMYCIN RIGHT EYE (21:07)
[2024-05-30] MEDS: PREGABALIN (*CRX) 75 MG CAPSULE 150 MG PO (21:07)
[2024-05-30] MEDS: MELATONIN 5 MG TABLET PO (21:07)
[2024-05-31 00:03] VITALS: PULSE 61
[2024-05-31 04:00] VITALS: BP 117/71; PULSE 60; RESP 16; TEMP 36.2; O2SAT 91
[2024-05-31 04:01] VITALS: PULSE 54
[2024-05-31 06:56] LABS: Basophils Percent Auto 0.5 % (0.2-1.2); Eosinophils Absolute Auto 0.3 K/mm3 (0-0.3); Eosinophils Percent Auto 6.4 % (0-4.4); Hematocrit 36.2 % (42.0-52.0); Hemoglobin 11.3 g/dL (14.0-18.0); Immature Granulocyte Absolute 0.01 K/mm3 (0.00-0.031); Immature Granulocyte Percent A 0.2 % (0-0.5); Lymphocytes Percent Auto 31.8 % (18.3-44.2); Mean Corpuscular HGB Conc 31.2 g/dl (32-36); Mean Corpuscular Hemoglobin 26.3 pg (26-34); Mean Corpuscular Volume 84.2 fl (80-100); Mean Platelet Volume 8.7 fl (7.4-10.4); Monocytes Absolute Auto 0.5 K/mm3 (0.1-0.6); Monocytes Percent Auto 10.2 % (2.6-8.5); Neutrophils Absolute Auto 2.2 K/mm3 (1.3-6.7); Neutrophils Percent Auto 50.9 % (45.5-73.1); Platelet Count Result 207 k/mm3 (150-375); Red Cell Distribution Width 15.1 % (11.5-14.5); White Blood Count 4.4 K/mm3 (4.5-10.0)
[2024-05-31 07:12] LABS: Alanine Aminotransferase 9 U/L (6-50); Albumin Level 2.9 g/dL (3.5-5.1); Alkaline Phosphatase 81 U/L (38-126); Anion Gap 0 mmol/L (4-12); Aspartate Amino Transferase 52 U/L (17-59); Bilirubin,Total 0.4 mg/dL (0.2-1.3); Blood Urea Nitrogen 18 mg/dL (9-20); Calcium 8.6 mg/dL (8.4-10.2); Carbon Dioxide 34 mmol/L (22-30); Chloride 101 mmol/L (98-107); Estimated CRCL calculation 103 ml/min; Estimated Glomerular Filt Rate > 60; Glucose 87 mg/dL (65-110); Sodium 135 mmol/L (137-145)
[2024-05-31 08:00] VITALS: BP 125/70; PULSE 78; RESP 16; TEMP 36.9; O2SAT 96
[2024-05-31] MEDS: FLUTICASONE/UMECLIDIN/VILANTER 100-62.5-25 MCG ELLIPTA 1 PUFF INHALATION (09:18)
[2024-05-31] MEDS: ACETAMINOPHEN 325 MG TABLET 650 MG PO (09:35)
[2024-05-31 09:36] VITALS: PULSE 80
[2024-05-31] MEDS: TAMSULOSIN HCL 0.4 MG CAPSULE PO (09:36)
[2024-05-31] MEDS: QUEtiapine FUMARATE 25 MG TABLET 50 MG PO (09:36)
[2024-05-31] MEDS: MULTIVITAMINS /C LUTEIN (CENTRUM SILVER) TABLET *BKC 1 TAB PO (09:36)
[2024-05-31] MEDS: PANTOPRAZOLE 40 MG TABLET PO (09:36)
[2024-05-31] MEDS: ASCORBIC ACID 500 MG TABLET 1000 MG PO (09:36)
[2024-05-31] MEDS: FUROSEMIDE 20 MG TABLET PO (09:36)
[2024-05-31] MEDS: VITAMIN B COMPLEX/VIT C CAPSULE 1 EACH PO (09:36)
[2024-05-31] MEDS: FOLIC ACID 0.4 MG TABLET PO (09:36)
[2024-05-31] MEDS: CARBIDOPA/LEVODOPA 25/100 MG TABLET 3 TABLET PO ×2 (09:36→12:02)
[2024-05-31] MEDS: MAGNESIUM OXIDE 400 MG TABLET PO (09:36)
[2024-05-31] MEDS: APIXABAN 5 MG TABLET PO (09:36)
[2024-05-31] MEDS: DULoxetine HCL 60 MG CAPSULE.DR PO (09:36)
[2024-05-31] MEDS: lisinopriL 10 MG TABLET PO (09:36)
[2024-05-31] MEDS: polyethylene glycoL 3350 17 GM POWD.PACK PO (09:37)
[2024-05-31] MEDS: FERROUS SULFATE 325 MG TABLET DR PO (09:37)
[2024-05-31] MEDS: TIMOLOL MALEATE 0.5% OP SOLN 5 ML BOTTLE 1 DROP EACH EYE (09:38)
[2024-05-31] MEDS: BRIMONIDINE TARTRATE 0.2% OP SOLN 5 ML BTL 1 DROP EACH EYE (09:38)
[2024-05-31] MEDS: D MANNOSE 500 MG 1000 EACH PO (09:38)
[2024-05-31] MEDS: DICLOFENAC SODIUM 1% 100 GM GEL (*BKC) 1 APPLIC TOPICAL (09:38)
--- NOTE | 2024-05-31 11:15 | P.DS_ITS ---
DS: Admitting Diagnosis Discharge Date 05/31/2024 Admitting Diagnosis Altered mental status/TIA/generalized weakness DS: Discharge Diagnosis Discharge Diagnosis (1) Altered mental status: Code(s): R41.82 - Altered mental status, unspecified Status: Acute (2) Mixed restrictive and obstructive lung disease: Code(s): J43.9 - Emphysema, unspecified; J98.4 - Other disorders of lung Status: Acute (3) Parkinson's disease with dyskinesia and fluctuating manifestations: Code(s): G20.B2 - Parkinson's disease with dyskinesia, with fluctuations Status: Acute (4) Essential (primary) hypertension: Code(s): I10 - Essential (primary) hypertension Status: Chronic (5) Urinary retention: Code(s): R33.9 - Retention of urine, unspecified Status: Acute (6) Bilateral lower extremity edema: Code(s): R60.0 - Localized edema Status: Acute Plan Code status: Full code per patient DVT prophylaxis: Eliquis Stress ulcer prophylaxis: Protonix 40 daily PT/OT notes: Swing Bed Disposition: Discharged to [facility] DS: Summary Hospital Course Reason for hospitalization: Altered mental status/TIA/generalized weakness Hospital Course: patient was a 74-year-old male who was admitted for generalized weakness, possible TIA versus partial seizure, and severe emphysema. patient's has a PMH of Parkinson's, pulmonary embolism, aspiration pneumonia, chronic pain syndrome, CAD w/stent placed, HTN, IL, neurogenic bladder, emphysema, and TBI. during patient's hospitalization he was found to have a single episode of altered mental status that resolved on own patient had CT head which was negative and was seen by Neurology. patient had no recollection of event and neurology believes it likely could have been a postictal state from a partial complex seizure. MRI of brain showed no acute findings an EEG showed no significant abnormalities. Patient was seen by Pulmonology for his severe emphysema plan will include intermittent oxygen suggesting that atelectasis and/or mucus plugging is a likely factor. The patient has been mostly bed-bound with some areas of atelectasis in the lower lobes right greater than left. Patient should continue incentive spirometry q.2 hours while awake. Pulmonology ordered a Cornet flutter valve as well as EzPAP treatment 3 times a day Patient respiratory status with overall improvement. Patient had no further episodes of stroke like sympotms vs partiel seixure during his admission and was then seen by Physical and Occupational therapy who recommended continued rehabilitation family agreed to swing bed at [facility]. during his admission he did have some urinary retention which he does have history of neurogenic bladder and Singh catheter had been placed with Flomax initiated he was discharged with Singh catheter and bladder trials which will be conducted at [facility] discharged with singh catheter. Otherwise patient was progressing slowly with physical therapy. Discharged and transferred via ambulance to [facility]. Status at Discharge Functional status at discharge: uses cane/walker Overall status at discharge: patient is progressing back to baseline Time Spent with Patient Time attestation: Total time spent providing and/or coordinating discharge services: Time spent: Greater than 30 minutes Exam Narrative: General: appears comfortable, in no acute distress, weaned off 2L supplemental oxygen, at bedside Respiratory: breathing is unlabored with even chest rise/fall, lung sounds are diminished. Cardiovascular: Rate and rhythm regular, normal s1s2, no murmur Abdomen: Soft, round, non-tender, active bowel sounds Extremities: No cyanosis, +1 pitting edema to bilateral lower extremities, no clubbing. Pulses 2/2. Neuro: a&ox4, moves all extremities against gravity. Skin: Warm, dry, intact DS: Data Data Completed and Pending Labs on day of discharge: Labs from last 24 hours 05/31/24 06:29 WBC 4.4 L RBC 4.30 L Hgb 11.3 L Hct 36.2 L MCV 84.2 MCH 26.3 MCHC 31.2 L RDW 15.1 H Plt Count 207 MPV 8.7 Immature Gran % (Auto) 0.2 Neut % (Auto) 50.9 Lymph % (Auto) 31.8 [place] % (Auto) 10.2 H Eos % (Auto) 6.4 H Baso % (Auto) 0.5 Lymph # (Auto) 1.40 [place] # (Auto) 0.5 Eos # (Auto) 0.3 Baso # (Auto) 0.0 Abs Immat Gran (auto) 0.01 Absolute Neuts (auto) 2.2 Absolute Nucleated RBC 0.000 Nucleated RBC % 0.0 Sodium 135 L Potassium 4.0 Chloride 101 Carbon Dioxide 34 H Anion Gap 0 L BUN 18 Creatinine 0.60 L Estim Creat Clear Calc 103 Estimated GFR > 60 Glucose 87 Calcium 8.6 Total Bilirubin 0.4 AST 52 ALT 9 Alkaline Phosphatase 81 Total Protein 6.0 L Albumin 2.9 L Imaging Radiologist's impression: Radiology Results: ITS Impressions Chest X-Ray 05/23/24 13:06 IMPRESSION: No acute cardiopulmonary pathology. Chest CTA 05/23/24 18:49 IMPRESSION: No pulmonary embolism No aortic dissection. Extremely low lung volumes secondary to elevation of the right hemidiaphragm, unchanged from prior studies. Venous Doppler Study 05/25/24 14:24 IMPRESSION: 1. No deep venous thrombosis. Chest Fluoroscopy 05/25/24 14:58 IMPRESSION: 1. Small lung volumes with mild atelectasis at the lung bases. 2. Normal motion of the diaphragm. 3. Small left pleural effusion. Head CT 05/28/24 09:42 Impression: No acute intracranial abnormality seen. Case discussed with Miladis Allen at 9:45 AM on 05/28/2024. Carotid Doppler Study 05/28/24 15:07 IMPRESSION: 1. <50% stenosis in the right internal carotid artery. 2. <50% stenosis in the left internal carotid artery. Brain MRI 05/29/24 13:38 IMPRESSION: 1. No acute intracranial process. 2. No abnormal enhancement. 3. Brain atrophy with deep white matter ischemic changes and ventricular dilatation. Discharge Plan Discharge Attending physician on discharge: Alphonso Cardenas Consulting providers: Mike Patel; Larissa Dias; Mat Padilla; Padmini Schneider; Conrad Argueta; Matt Kovacs; Yusuf Deluca; Miladis Allen; Ermelinda Solis; Steve Garrett V.; Tommy Walsh Discharging Clinician: Shae Hughes Anticipated Discharge Date/Time: 05/31/24 11:08 Patient Disposition: Hospital Swing Bed Activity: may shower Diet: regular Discharge Instructions: You were admitted for weakness and found to have urinary retention, constipation, and low oxygen. We placed a catheter and gave you a bowel prep to get your bowels moving. Once you were able to have a bowel movement we were able to remove your Singh catheter and you have been able to urinate on without difficulty. We also started you on flomax which will help to promote urinary emptying. Your retention was likely from constipation and possibly the oxybutynin. Your low oxygen seems to be from low lung volumes, decreased muscle strength from Parkinson's, and constipation crowding your diaphragm. Since we have your bowels moving you have been able to be on room air during the day. We completed a sleep study at night which showed that you do drop your oxygen saturation at night but you are not have obstructive episodes as seen with sleep apnea. We then repeated a sleep study on 2 L NC. You can continue to use the PEP horn to help prevent mucous plugging. From a pulmonary perspective patient is ready to be discharged on these pulmonary medications: Trelegy inhaler 100 - 62.5-25 at 1 puff q.day Rescue albuterol 2 puffs q.4 hours p.r.n. shortness of breath or wheezing Loratadine 10 mg a day Oxygen at rest and with ambulation per facilities protocol. Currently is on room air at rest with saturations 94%. The swelling in your legs and hands seems to be dependent edema. We gave you some Lasix and this helped. You can continue to take Lasix 20 mg as needed for lower extremity swelling. Your hemoglobin is slightly low, indicating anemia. I checked your iron and it was low. I have started your on oral iron tablets (ferrous sulfate). This needs to be taken 2 hours AFTER your carbidopa-levodopa. If you take them together then the iron will decrease the absorption of the carbidopa-levodopa. Iron will make your stool appear dark green, almost black. It can also constipate you so it is important continue to take the senna nightly and miralax every day. If you notice you haven't had a bowel movement in a couple of days you can take a suppository to help promote a bowel movement. While you were here you also experienced a transient episode of altered mental status. You were unable to follow commands consistently and were confused saying only one word responses. A code stroke was called and Neurology was consulted. CT of your head was negative for hemorrhagic stroke. You had had a recent CTA which showed less than 20% occlusion of your coronary arteries. We did a carotid duplex which showed less than 50% occlusion bilaterally. We also got a brain MRI which showed.......EEG was essentially normal. Neurology thought this could be a TIA (Transient ischemic attack) or partial seizure and recommends follow-up with your Neurologist in [facility] You will discharge today to swing bed for further PT and OT to help with weakness, strength and balance training. Please follow up with your PCP in the next 1-2 weeks given this hospital stay. Patient Instructions: Antibiotic Form, Transient Ischemic Attack (DC), Constipation (DC), Urinary Retention in Men (ED), Parkinson Disease (DC), Self- Care Measures with a Chronic Disease (DC), Atelectasis (DC) Patient Language: Guamanian Stand Alone Forms: General Discharge Information Follow-up/Referrals: Mike Mcwilliams MD [Primary Care Provider] - Call for Appointment (Following rehabilitation) Mike Patel MD [Physician] - Call for Appointment Discharge Medications: New polyethylene glycol 3350 [Miralax] 17 gram Powder In Packet 17 g PO QAM Qty: 30 0RF sennosides-docusate sodium [Senokot-S] 8.6-50 mg Tablet 1 tab PO HS Qty: 30 0RF ferrous sulfate 325 mg (65 mg iron) Tablet,Delayed Release (Dr/Ec) 325 mg PO DAILY Qty: 30 0RF tamsulosin 0.4 mg Capsule 0.4 mg PO QAM Qty: 30 0RF furosemide 20 mg Tablet 20 mg PO DAILY Qty: 30 0RF Continued brimonidine-timolol 0.2-0.5 % drops 1 drp EACH EYE BID lisinopril 10 mg tablet 10 mg PO DAILY pregabalin [Lyrica] 150 mg Capsule 150 mg PO HS Hold Instructions: Patient Condition pantoprazole [Protonix] 20 mg tablet,delayed release (DR/EC) 40 mg PO QAM Trelegy Ellipta 100-62.5-25 mcg Blister With Device 1 inh INHALATION DAILY Patient Comments: unsure of dose, will need to check with family or pharmacy in the morning alprazolam 0.25 mg tablet 0.25 mg PO TID PRN (Reason: Anxiety) carbidopa-levodopa 25-100 mg tablet 3 tablet PO QID Rx Instructions: Take at 0800, 1200, 1600, 2000 duloxetine 60 mg capsule,delayed release(DR/EC) 60 mg PO QAM Eliquis 5 mg tablet 5 mg PO BID Qty: 180 3RF quetiapine [Seroquel] 50 mg tablet 50 mg PO BID Qty: 60 5RF cetirizine 10 mg Tablet 10 mg PO DAILY B-complex with vitamin C Tablet 1 tablet PO DAILY diclofenac sodium 1 % Gel 2 g TOPICAL QID Rx Instructions: Apply to Bilateral knees, wrists, back Stages Men's Multi-Vitamin 200 mcg-300 unit-20 mcg Tablet 1 tablet PO DAILY TobraDex 0.3-0.1 % ointment 1 applic RIGHT EYE DAILY Rx Instructions: AM magnesium oxide 400 mg (241.3 mg magnesium) tablet 400 mg PO DAILY cranberry extract 500 mg Tablet 500 mg PO DAILY melatonin 5 mg PO HS atorvastatin 40 mg tablet 40 mg PO HS ascorbic acid (vitamin C) 1,000 mg Tablet 1 g PO DAILY aspirin 81 mg Tablet,Delayed Release (Dr/Ec) 81 mg PO HS d-mannose 500 mg Capsule 500 mg PO Q12H Patient Comments: bringing in Rx Instructions: Patient's brought his own medication No Action folic acid 400 mcg Tablet 400 mcg PO DAILY coQ10 (ubiquinol) 200 mg Capsule 200 mg PO DAILY [place]-3 Plus Vitamin D3 1 cap PO DAILY oxybutynin chloride 5 mg tablet extended release 24hr 10 mg PO DAILY Date of admission: 05/25/24 12:27 Primary Care Provider: Mike Mcwilliams Admitting Provider: Kemal Villanueva Attending physician on admission: Shae Hughes Condition: Stable Quality VTE Prophylaxis VTE prophylaxis: pharmacologic ordered -Patient's previous records reviewed on admission -ER notes reviewed in detail on admission -discussed all findings and current treatment plan with patient/Family/POA -Consultations reviewed for recommendations -Patient's disposition for safe discharge discussed with bilingual patient support caseworker Dictation performed by [employer] direct speech recognition software, therefore grader patrol variants and typographical errors may occur. Hospitalist MIPS Heart Failure (Exclusion) Patient has history of Heart Transplant or Left Ventricular Assistive Device?: No IF YES, STOP HERE Heart Failure (Qualifier) Patient has current or prior documentation of LVEF less than or equal to 40%, or mod/servere depressed LVSF?: No IF NO, STOP HERE
[2024-05-31 12:00] VITALS: BP 130/62; PULSE 74; PULSE 76; RESP 16; TEMP 37.1; O2SAT 94
--- NOTE | 2024-05-31 15:50 | P.PNNEUR_ITS ---
Progress Note: A&P Assessment and Plan (1) Altered mental status: Code(s): R41.82 - Altered mental status, unspecified Status: Acute Assessment and Plan: Patient is single spell of altered mental status which most likely could have been postictal state or a partial complex seizure based upon the fact that he had no recollection what happened later on and this lasted for few hours. His EKG had shown some ventricular ectopic beats but no cardiac arrhythmias were noted. Of course the Holter monitor was put on after he had the event but at that time he was still confused. I told his that he has any further spells I would like to re-evaluate him. I reviewed the MRI of the brain and EEG which did not show any significant abnormalities. (2) Parkinson's disease: Code(s): G20.A1 - Parkinson's disease without dyskinesia, without mention of fluctuations Status: Acute Subjective Date/time seen: 05/31/24 15:50 Interval history: Patient was seen by me for single spell of change in mental status which took a few hours to get back to normal. He has not had any further recurrence of that. Patient's and granddaughter were present when I saw him today. He is doing fairly well. He has been on Xarelto for pulmonary embolus. Also history of Parkinson's disease. MRI of the brain was performed which did not show any significant abnormalities. There is some chronic changes consistent with aging process Review of Systems Review of Systems: All systems reviewed & are unremarkable except as noted in HPI and below Exam Narrative: fully conscious alert oriented to self time place and person. His speech is fl uent and articulate. Exams are cranial nerves motor and sensory system were unremarkable. No significant cogwheeling or involuntary movements or dyskinesias were seen at this time. Objective Data Vital Signs Vital Signs: Vital Signs - 24 hr 05/30/24 16:00 05/30/24 16:00 05/30/24 20:00 Temperature 97.9 F 98.2 F Pulse Rate 71 69 74 Respiratory Rate 18 14 Blood Pressure 110/68 121/70 Pulse Oximetry 92 95 Oxygen Delivery Fraction of Inspired Oxygen 05/30/24 23:26 05/30/24 21:00 05/30/24 21:00 Temperature 97.9 F Pulse Rate 67 67 67 Respiratory Rate 12 12 Blood Pressure 126/73 Pulse Oximetry 91 91 Oxygen Delivery Room Air Fraction of Inspired Oxygen 05/31/24 00:03 05/31/24 04:01 05/30/24 20:01 Temperature Pulse Rate 61 54 L 71 Respiratory Rate Blood Pressure Pulse Oximetry Oxygen Delivery Fraction of Inspired Oxygen 05/31/24 04:00 05/31/24 08:00 05/31/24 09:36 Temperature 97.2 F L 98.4 F Pulse Rate 60 78 Respiratory Rate 16 16 Blood Pressure 117/71 125/70 Pulse Oximetry 91 96 Oxygen Delivery Room Air Fraction of Inspired Oxygen 05/31/24 09:36 05/31/24 12:00 05/31/24 12:00 Temperature 98.8 F Pulse Rate 80 74 76 Respiratory Rate 16 Blood Pressure 130/62 Pulse Oximetry 94 Oxygen Delivery Fraction of Inspired Oxygen Intake/Output Intake/Output: Intake & Output 05/28/24 05/29/24 05/30/24 05/31/24 23:59 23:59 23:59 23:59 Intake Total 227 0494 1184 918 Output Total 8785 2366 3000 Balance [facility] [phone] Meds/Results Medications: Active Medications Generic Name Dose Route Start Last Admin Trade Name Freq PRN Reason Stop Dose Admin Acetaminophen 650 mg 05/26/24 17:47 05/31/24 09:35 Acetaminophen 325 Mg Tablet PO 650 mg Q6H PRN Administration Mild Pain (1-3) or Fever Albuterol 2.5 mg 05/25/24 15:41 Albuterol Sulfate Neb 2.5 Mg/3 Ml Inh INHALATION Q4H PRN Wheezing Alprazolam 0.25 mg 05/25/24 21:10 05/27/24 20:45 Alprazolam (*Crx) 0.25 Mg Tablet PO 0.25 mg TID PRN Administration Anxiety Apixaban 5 mg 05/24/24 09:00 05/31/24 09:36 Apixaban 5 Mg Tablet PO 5 mg Q12HR KOFI Administration Ascorbic Acid 1,000 mg 05/24/24 09:00 05/31/24 09:36 Ascorbic Acid 500 Mg Tablet PO 1,000 mg DAILY KOFI Administration Aspirin 81 mg 05/24/24 21:00 05/30/24 21:07 Aspirin 81 Mg Enteric Tablet PO 81 mg HS KOFI Administration Atorvastatin Calcium 40 mg 05/24/24 21:00 05/30/24 21:07 Atorvastatin 40 Mg Tablet PO 40 mg HS KOFI Administration Brimonidine Tartrate 1 drop 05/24/24 09:00 05/31/24 09:38 Brimonidine Tartrate 0.2% Op Soln 5 Ml Btl EACH EYE 1 drop Q12HR KOFI Administration Carbidopa/Levodopa 3 tablet 05/26/24 16:00 05/31/24 12:02 Carbidopa/Levodopa 25/100 Mg Tablet PO 3 tablet QID@0800,1200,1600,2000 KOFI Administration Diclofenac Sodium 1 applic 05/24/24 09:00 05/31/24 09:38 Diclofenac Sodium 1% 100 Gm Gel (*Bkc) TOPICAL 1 applic QID KOFI Administration Duloxetine HCl 60 mg 05/24/24 09:00 05/31/24 09:36 Duloxetine Hcl 60 Mg Capsule.Dr PO 60 mg QAM KOFI Administration Ferrous Sulfate 325 mg 05/25/24 10:45 05/31/24 09:37 Ferrous Sulfate [address] PO 325 mg DAILY KOFI Administration Fluticasone/Umeclidinium/Vilanterol 1 puff 05/24/24 08:00 05/31/24 09:18 Fluticasone/Umeclidin/Vilanter 100-62.5-25 Mcg Ellipta INHALATION 1 puff DAILYRT KOFI Administration Folic Acid 0.4 mg 05/24/24 09:00 05/31/24 09:36 Folic Acid 0.4 Mg Tablet PO 0.4 mg DAILY KOFI Administration Furosemide 20 mg 05/29/24 09:00 05/31/24 09:36 Furosemide 20 Mg Tablet PO 20 mg DAILY KOFI Administration Lisinopril 10 mg 05/24/24 09:00 05/31/24 09:36 Lisinopril 10 Mg Tablet PO 10 mg DAILY KOFI Administration Magnesium Oxide 400 mg 05/24/24 09:00 05/31/24 09:36 Magnesium Oxide 400 Mg Tablet PO 400 mg DAILY KOFI Administration Melatonin 5 mg 05/24/24 21:00 05/30/24 21:07 Melatonin 5 Mg Tablet PO 5 mg HS KOFI Administration Multivitamins/Minerals 1 tab 05/24/24 09:00 05/31/24 09:36 Multivitamins /C Lutein (Centrum Silver) Tablet *Bkc PO 1 tab QAM KOFI Administration * Home Med * D- 1,000 mg 05/30/24 09:00 05/31/24 09:38 Mannose 500 Mg PO 06/29/24 08:59 1,000 mg Capsule DAILY KOFI Administration Oxybutynin Chloride 5 mg 05/24/24 09:00 05/24/24 09:10 Oxybutynin Chloride Xl 5 Mg Tab.Er.24 PO 5 mg DAILY KOFI Administration Pantoprazole Sodium 40 mg 05/24/24 09:00 05/31/24 09:36 Pantoprazole 40 Mg Tablet PO 40 mg QAM KOFI Administration Polyethylene Glycol 17 gm 05/24/24 11:30 05/31/24 09:37 Polyethylene Glycol 3350 17 Gm Powd.Pack PO 17 gm QAM KOFI Administration Pregabalin 150 mg 05/24/24 21:00 05/30/24 21:07 Pregabalin (*Crx) 75 Mg Capsule PO 150 mg HS KOFI Administration Quetiapine Fumarate 50 mg 05/24/24 09:00 05/31/24 09:36 Quetiapine Fumarate 25 Mg Tablet PO 50 mg Q12HR KOFI Administration Senna/Docusate Sodium 1 tab 05/24/24 21:00 05/30/24 21:07 Senna/Docusate Sodium Tablet PO 1 tab HS KOFI Administration Tamsulosin HCl 0.4 mg 05/25/24 10:45 05/31/24 09:36 Tamsulosin Hcl 0.4 Mg Capsule PO 0.4 mg QAM KOFI Administration Timolol Maleate 1 drop 05/24/24 09:00 05/31/24 09:38 Timolol Maleate 0.5% Op Soln 5 Ml Bottle EACH EYE 1 drop Q12HR KOFI Administration Tobramycin/Dexamethasone 1 applic 05/26/24 21:00 05/30/24 21:07 Tobramycin/Dexamethasone Op Oint 3.5 Gm Tube RIGHT EYE 1 applic 2100 KOFI Administration Vitamin B Complex/Vitamin C 1 each 05/24/24 09:00 05/31/24 09:36 Vitamin B Complex/Vit C Capsule PO 1 each DAILY KOFI Administration Radiology Results: ITS Impressions Chest X-Ray 05/23/24 13:06 IMPRESSION: No acute cardiopulmonary pathology. Chest CTA 05/23/24 18:49 IMPRESSION: No pulmonary embolism No aortic dissection. Extremely low lung volumes secondary to elevation of the right hemidiaphragm, unchanged from prior studies. Venous Doppler Study 05/25/24 14:24 IMPRESSION: 1. No deep venous thrombosis. Chest Fluoroscopy 05/25/24 14:58 IMPRESSION: 1. Small lung volumes with mild atelectasis at the lung bases. 2. Normal motion of the diaphragm. 3. Small left pleural effusion. Head CT 05/28/24 09:42 Impression: No acute intracranial abnormality seen. Case discussed with Miladis Allen at 9:45 AM on 05/28/2024. Carotid Doppler Study 05/28/24 15:07 IMPRESSION: 1. <50% stenosis in the right internal carotid artery. 2. <50% stenosis in the left internal carotid artery. Brain MRI 05/29/24 13:38 IMPRESSION: 1. No acute intracranial process. 2. No abnormal enhancement. 3. Brain atrophy with deep white matter ischemic changes and ventricular dilatation. Labs Labs: Laboratory Results - last 24 hr 05/31/24 06:29 WBC 4.4 L RBC 4.30 L Hgb 11.3 L Hct 36.2 L MCV 84.2 MCH 26.3 MCHC 31.2 L RDW 15.1 H Plt Count 207 MPV 8.7 Immature Gran % (Auto) 0.2 Neut % (Auto) 50.9 Lymph % (Auto) 31.8 [place] % (Auto) 10.2 H Eos % (Auto) 6.4 H Baso % (Auto) 0.5 Lymph # (Auto) 1.40 [place] # (Auto) 0.5 Eos # (Auto) 0.3 Baso # (Auto) 0.0 Abs Immat Gran (auto) 0.01 Absolute Neuts (auto) 2.2 Absolute Nucleated RBC 0.000 Nucleated RBC % 0.0 Sodium 135 L Potassium 4.0 Chloride 101 Carbon Dioxide 34 H Anion Gap 0 L BUN 18 Creatinine 0.60 L Estim Creat Clear Calc 103 Estimated GFR > 60 Glucose 87 Calcium 8.6 Total Bilirubin 0.4 AST 52 ALT 9 Alkaline Phosphatase 81 Total Protein 6.0 L Albumin 2.9 L
== END 2024-05-31 15:40 | disposition swing bed (61) | DRG 56 ==
LOC: ANHED 14:17 → ANH3MEDSUR 18:59
PROVIDERS: Internal Medicine Pulmonary Disease; Nurse Practitioner Acute Care; Admitting Provider Hospitalist; Emergency Provider Emergency Medicine; PCP Family Medicine; Visit Provider Nurse Practitioner Family
DX: G20.B2 Parkinson's disease with dyskinesia, with fluctuations (principal); J96.91 Respiratory failure, unspecified with hypoxia; E87.1 Hypo-osmolality and hyponatremia; J98.4 Other disorders of lung; J43.9 Emphysema, unspecified; R41.82 Altered mental status, unspecified; I25.10 Atherosclerotic heart disease of native coronary artery without angina pectoris; I10 Essential (primary) hypertension; K21.9 Gastro-esophageal reflux disease without esophagitis; R33.9 Retention of urine, unspecified; N32.81 Overactive bladder; M54.50 Low back pain, unspecified; F32.A Depression, unspecified; G89.4 Chronic pain syndrome; Z20.822 Contact with and (suspected) exposure to COVID-19; Z96.89 Presence of other specified functional implants; I25.2 Old myocardial infarction; Z86.711 Personal history of pulmonary embolism; Z79.01 Long term (current) use of anticoagulants; Z79.82 Long term (current) use of aspirin; Z87.820 Personal history of traumatic brain injury; Z95.5 Presence of coronary angioplasty implant and graft; Z87.891 Personal history of nicotine dependence
CPT/HCPCS: 36415; 36600; 70450; 70553; 71046; 71275; 76000; 80053; 81001; 82805; 82948; 83540; 83550; 83735; 83880; 84484; 85018; 85025; 87637; 93005; 93306; 93880; 93970; 94640; 94667; 94762; 95816; 96374; 96375; 96376; 97110; 97161; 97166; 97530; 97535; 99285; A9270; A9577; G0378; J1756; J1940; J7050; Q9967

== ENCOUNTER 2024-05-31 16:34 | Inpatient (IN) | payer MEDICARE, OTHER, SELFPAY ==
--- NOTE | ~2024-05-31 | XR_ITS ---
XR chest 1V portable DATE: 06/09/2024 09:01 INDICATION: Increased oxygen requirement TECHNIQUE: Portable upright AP chest on 06/09/2024 at 0858 hours COMPARISON: 05/23/2024 2 view chest 05/23/2024 CTA chest FINDINGS: Relatively high diaphragm and low lung volumes are again noted, with mild atelectasis at th e lung bases. Heart size is within normal range. No pleural effusion or pulmonary vascular congestion or pneumothorax is evident. IMPRESSION: Chronic high diaphragm, low lung volumes, with bibasilar mild atelectasis Reviewed, dictated and finalized at location A. [facility] IMPRESSION: Chronic high diaphragm, low lung volumes, with bibasilar mild atele ctasis
--- OUTSIDE RECORDS SUMMARY | 2024-05-31 16:39 | XMS_ITS ---
Author Name Unknown Organization [facility] Address [address] [place] [address] Care Team Providers Care Dietary Server Name Role Phone Joe Oswald Unavailable [phone] Encounters Encounter Location Date Provider Diagnosis [facility] [address] [place] [id number] 01/09/2024 Joe Oswald PLAN OF TREATMENT Next Appt Details Provider Name:Joe russo, 06/13/2024 10:00:00 AM, [address] [place], [address], Progress Notes * Joe SUTTON:[birth year] (73 yo M)Acc No.[id number]:01/09/2024 * true * Date:??
--- OUTSIDE RECORDS SUMMARY | 2024-05-31 16:39 | XMS_ITS ---
Author Name Unknown Organization [facility] [place] Address [address] [place] [address] Care Team Providers Care Ship Captain Name Role Phone Joe Oswald Unavailable [phone] ALLERGIES No Known Allergies REASON FOR VISIT MCR, MOO/ FU Visit and ROUTINE PUMP REFILL MEDICATIONS Medication SIG (Take, Route, Frequency, Duration) Notes Start Date End Date Status Atorvastatin Calcium 40 MG 1 tablet Oral ly Once a day Active Pantoprazole Sodium 40 MG 1 tablet Orall y Once a day Active Multivitamin Active Cetirizine HCl 10 MG 2 tablets Orally On ce a day Active Aspir-81 Active Lyrica 150 MG 1 capsule Orally christo ly evening for 90 days M96.1 04/02/2024 Active oxyBUTYnin Chloride ER 10 MG 1 tablet Orally Once a day Active Carbidopa-Levodopa A ctive Lisinopril 10 MG 1 tablet Orally Once a day for 90 Active VITAL SIGNS Temperature 98.4 degrees Fahrenheit 04/02/20 24 Blood pressure systolic 133 mm Hg 04/02/20 24 Blood pressure diastolic 82 mm Hg 024 Heart Rate 80 /min 04/02/2024 Respiratory Rate 18 /min 04/02/2024 Height 74 in 04/02/2024 Weight 198 lbs 04/02/2024 BMI 25.42 kg/m2 04/02/2024 Encounters Encounter Location Date Provider Diagnosis [facility] [address] [address] 04/02/2024 Joe Oswald Postlaminectomy synd boo, not elsewhere classified M96.1 ; History of lumbar fusion Z98.1 and Facet degeneration of lumbosacral region M47.817 ASSESSMENTS Encounter Date Diagnosis Assessment Notes Treatment Notes Treatment Clinical Notes 04/02/2024 Postlaminectomy syndrome, not elsewhere classified (ICD-10 - M96.1) Impression1. Chronic and intractable axial low back pain in part attributed to lumbar facet arthropathy L3/4 and L5/S1, segments above and below fusion construct.2. Remote history L4/5 posterior fusion (1992).3. Grade 1 anterior spondylolisthesis L3/4 with some translation noted on previous radiographs.4. Elements of post lumbar laminectomy syndrome.5. Patient has implanted Medtronic SynchroMed pump through which he receives intrathecal hydromorphone at dosage of 4.493 mg/day via simple continuous infusion mode. Pump KEYUR 73 months.Plan1. Proceed with routine pump refill today. No changes in intrathecal dosing of hydromorphone as above.2. Return to clinic 06/13/2024 for next pump refill. 04/02/2024 History of lumbar fusion (ICD-10 - Z98.1) 04/02/2024 Facet degeneration of lumbosacral region (ICD-10 - M47.817) PLAN OF TREATMENT Medication Medication Name Sig Start Date Stop Date Notes Lyrica 150 MG 1 capsule Orally daily evening for 90 days 0 04/02/2024 M96.1 Treatment Notes Assessment Notes Postlaminectomy syndrome, no t elsewhere classified Impression1. Chronic and intractable axi al low back pain in part attributed to lumbar facet arthropathy L3/4 and L5/S1, segments above and below fusion construct.2. Remote history L4/5 posterior fusion (1992).3. Grade 1 anterior spondylolisthesis L3/4 with some translation noted on previous radiographs.4. Elements of post lumbar laminectomy syndrome.5. Patient has implanted Medtronic SynchroMed pump through which he receives intrathecal hydromorphone at dosage of 4.493 mg/day via simple continuous infusion mode. Pump KEYUR 73 months.Plan1. Proceed with routine pump refill today. No changes in intrathecal dosing of hydromorphone as above.2. Return to clinic 06/13/2024 for next pump refill. Next Appt Details Provider Name:Joe russo, 06/13/2024 10:00:00 AM, [address], [place], [address], MEDICATIONS ADMINISTERED Medication Instructions Date of Administration Dosage Notes Routine Pump Refill 04/02/2024 Procedure Notes * Category Sub-Category Detail Notes DGS: Routine Pump Refill Routine Pump Refill Rou ellyn pump refillPatient was allowed to maintain a seated position in his transport chair.. Skin overlying pump anterior abdomen prepped with Hibiclens followed by application of Betadine solution. Sterile drape was applied. Go Israel RN, using sterile technique, accessed the refill port with a 22-gauge Castro needle connected to syringe by clamped extension tubing. Actual residual volume of 3.5 mL was withdrawn, pump calculated 3.2 mL, which was properly discarded. Pump was refilled with preservative-free hydromorphone 20 mg/mL with total of 20 mL instilled within the pump. Intrathecal hydromorphone dosage remains 4.493 mg/day using simple continuous infusion mode. Needle was withdrawn tip intact. No complications were encountered. Pump KEYUR 73 months. Low reservoir alarm date 06-21-24. Prep was wiped from the skin and latex free Band-Aid placed over puncture site. He was discharged in satisfactory condition. He will return on 06/13/2024 for his next pump refill. Progress Notes * Joe SUTTON:[birth year] (74 yo M)Acc No.[id number]:04/02/2024 Subjective: * Chief Complaints: * ?MCR, MOO/ FU Visit and ROUTINE PUMP REFILL * HPI: ?Follow-up Questionnaire:?Pain Evaluation??This patient encounter was conducted at the [facility]. The patient completed a questionnaire on the progress that has been made since the last office visit. This form was reviewed and the responses are included in this progress note..?Location of pain:??back, legs.?Onset of pain:??years ago.?Average Pain Since Last Visit on Scale of 0 to 10:??7.?Number describing interference w/enjoyment of life:??9.? This 74-year-old white male presents to the pain clinic today, accompanied by his , for routine pump refill. He was last seen on 01/18/2024 for same. Patient describes no more than 50% overall pain relief with the use of intrathecal hydromorphone at dosage of 4.493 mg/day using simple continuous infusion mode. Patient has implanted Medtronic SynchroMed pump with KEYUR 73 months. Patient has chronic and intractable low back pain with intermittent lumbar radicular symptoms and underlying post lumbar laminectomy syndrome. He has history of previous L4/5 posterior fusion 1992. In the interval since his last visit, he was again hospitalized at [facility] with TIA/possible stroke although brain imaging did not reveal specific hemorrhage, infarct or mass effect. He was transferred to [facility] where he spent several days undergoing rehabilitation. Patient also takes pregabalin 150 mg single daily dosage at bedtime and needs a refill of the medication. Based upon axial component of his back pain, I have provided bilateral L3/4 and L5/S1 facet joint/medial branch injections on 11/23/2023 although the patient had indicated no improvement therefore he was not candidate for consideration of future lumbar facet RFA. Patient has rather complex medical history with likely cerebrovascular disease, cardiovascular disease and Parkinson's disease. Patient's overall gait has slowly declined over time. ?Imaging studies: ?MRI brain without contrast 12/13/2023 revealed central and cortical atrophy without acute infarct, mass or hemorrhage. Chronic small vessel ischemic changes suggested. ?CT head without contrast 12/09/2023 suggested no acute intracranial hemorrhage or midline shift. Age-indeterminate subacute or chronic lacunar infarct right cerebellum. Moderate generalized cerebral volume loss. * ROS:?Pain Management ROS:?Patient Denies: GENERAL:??weight or appetite changes, fever, chills, disturbed sleeping habits.??Patient Denies: EYE:??eye infections, blurred vision, double vision, blindness.??Patient Denies: ENT:??hearing loss, inflamed nose, hoarseness, sore throat, bloody nose, sinusitis, dizziness.??Patient Denies: CARDIAC:??chest pains, heart murmur, skipped beats.??Patient Denies: GENITOURINARY??bladder incontinence, difficulty urinating.??Patient Denies: RESPIRATORY??cough, coughing up blood, wheezing, shortness of breath, difficulty breathing on exertion.??Patient Denies: GI??constipation, diarrhea, blood in stools, nausea/vomiting.??Patient Denies: NEUROLOGIC??headaches, dizziness, falling, seizures, numbness, tremor.??Patient Denies: ENDOCRINE??hot and cold flashes.??Patient Denies: HEMATOLOGICAL??easy bruisability, difficulty in clotting the blood.??Patient Denies: JOINTS??joint or muscle limitation and pain other than the present illness.??Patient Denies: PSYCHIATRIC:??depression, mood swings, anxiety.??Patient Denies: SKIN??lacerations, abrasions, postules, nodules, tumors, breast changes.? * Medical History:?? * Surgical History:??L4/5 PLIF 1993Medtronic SynchroMed II pump and replacements, most recently 08-02-23 * Hospitalization/Major Diagno stic Procedure:??fusion [facility], blood clot, brain MRI * Family History:??Father: dec eased.??Mother: .??2 son(s) , 1 daughter(s) . .?? * Social History:?Education:?How far did you get in your education?: college. * Medications:??TakingoxyBUTYn in Chloride ER 10 MG Tablet Extended Release 24 Hour 1 tablet Orally Once a day Carbidopa-Levodopa Lisinopril 10 MG Tablet 1 tablet Orally Once a day Aspir-81 Atorvastatin Calcium 40 MG Tablet 1 tablet Orally Once a day Pantoprazole Sodium 40 MG Tablet Delayed Release 1 tablet Orally Once a day Multivitamin Cetirizine HCl 10 MG Tablet 2 tablets Orally Once a day Lyrica 150 MG Capsule 1 capsule Orally daily evening , Notes to Pharmacist: M96.1Medication List reviewed and reconciled with the patientTaking oxyBUTYnin Chloride ER 10 MG Tablet Extended Release 24 Hour 1 tablet Orally Once a day Taking Carbidopa-Levodopa Taking Lisinopril 10 MG Tablet 1 tablet Orally Once a day Taking Aspir-81 Taking Atorvastatin Calcium 40 MG Tablet 1 tablet Orally Once a day Taking Pantoprazole Sodium 40 MG Tablet Delayed Release 1 tablet Orally Once a day Taking Multivitamin Taking Cetirizine HCl 10 MG Tablet 2 tablets Orally Once a day Taking Lyrica 150 MG Capsule 1 capsule Orally daily evening , Notes to Pharmacist: M96.1Medication List reviewed and reconciled with the patient * Allergies:??N.K.D.A.no[Aller gies Verified] Objective: * Vitals:??Temp: 98.4 F, HR: 8 0 /min, BP: 133/82 mm Hg, Wt: 198 lbs, BMI: 25.42 Index, Ht: 74 in, RR: 18 /min, Ht-cm: 187.96 cm, Wt-k.81 kg. * Examination: ?DGS: Follow-up exam elements: ?General??The patient appeared in no distress. The patient is alert and oriented to time, place, and person..? Assessment: * Assessment: 1.??Postlaminectomy syndrome , not elsewhere classified - M96.1 (Primary)??2.??History of lumbar fusion - Z98.1??3.??Facet degeneration of lumbosacral region - M47.817?? Plan: * Treatment: * Procedures:?DGS: Routine Pump Refill:?Routine Pump Refill??Routine pump refill ?Patient was allowed to maintain a seated position in his transport chair.. Skin overlying pump anterior abdomen prepped with Hibiclens followed by application of Betadine solution. Sterile drape was applied. Go Israel RN, using sterile technique, accessed the refill port with a 22-gauge Castro needle connected to syringe by clamped extension tubing. Actual residual volume of 3.5 mL was withdrawn, pump calculated 3.2 mL, which was properly discarded. Pump was refilled with preservative-free hydromorphone 20 mg/mL with total of 20 mL instilled within the pump. Intrathecal hydromorphone dosage remains 4.493 mg/day using simple continuous infusion mode. Needle was withdrawn tip intact. No complications were encountered. Pump KEYUR 73 months. Low reservoir alarm date 06-21-24. Prep was wiped from the skin and latex free Band-Aid placed over puncture site. He was discharged in satisfactory condition. He will return on 06/13/2024 for his next pump refill..? * Therapeutic Injections:? Routine Pump Refill given by Joe Oswald DO * Procedure Codes:?? Routine P ump Refill * Preventive Medicine:?PQRS:?PQRS??G8417: BMI above normal (overweight) and f/u plan documented., G8428: Current medication with name, dosage, frequency, or route NOT documented, not given - performance NOT met., 1036F: Patient screened for tobacco use and identified as a non-user of tobacco..?Oswestry Score:?Oswestry Score??24.?? * Images: * Sign off status: Completed true * Provider:??Joe Oswald DO Date:??0 04/02/2024 History and Physical Notes * HPI (History of Present Illness) Category Sub-Category Detail Notes Follow-up Questionnaire Average Pain Sin ce Last Visit on Scale of 0 to 10: 7 Examination Category Sub-Category Detail Notes DGS: Follow-up exam elements General The patient appeared in no distress. The patient is alert and oriented to time, place, and person.
--- OUTSIDE RECORDS SUMMARY | 2024-05-31 16:39 | XMS_ITS | Patient Health Record ---
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 Name Role Phone DarekJoe Unavailable [phone] ALLERGIES No Known Allergies REASON FOR REFERRAL No Information MEDICATIONS Medication SIG (Take, Route, Frequency, Duration) Notes Start Date End Date Status Lyrica 150 MG 1 capsule Orally christo ly evening for 90 days M96.1 04/02/2024 Active oxyBUTYnin Chloride ER 10 MG 1 tablet Orally Once a day Active Atorvastatin Calcium 40 MG 1 tablet Oral ly Once a day Active Pantoprazole Sodium 40 MG 1 tablet Orall y Once a day Active Multivitamin Active Cetirizine HCl 10 MG 2 tablets Orally On ce a day Active Carbidopa-Levodopa A ctive Lisinopril 10 MG 1 tablet Orally Once a day for 90 Active Aspir-81 Active SOCIAL HISTORY Tobacco Use: Social History Observation Description Date Details (start date - stop date) Former Smoker NA - NA Sex Assigned At : Social History Observation Description Sex Assigned At Unknown Tobacco Use/Smoking Question Answer Notes Are you a former smoker How long has it been since you last smoked? > 10 years Alcohol Screen (Audit-C) Question Answer Notes Did you have a drink containing alcohol in the p ast year? 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) Active confirmed 845103700 Problem Radiculopathy of lumbar region (M54.16) Active confirmed 841280319 Problem History of lumbar fusion (Z98.1) Active confirmed 63973359070357 Problem Normal pressure hydrocephalus (G91.2) Active confirmed Normal pressure hydrocephalus (28715781) Problem 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) Active confirmed 690464128 Problem 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) Active confirmed Arthropathy of lumbar facet joint (979749275) VITAL SIGNS Heart Rate 80 /min 04/02/2024 Temperature 98.4 degrees Fahrenheit 04/02/2024 Respiratory Rate 18 /min 04/02/2024 Blood pressure diastolic 82 mm Hg 04/02/2024 Height 74 in 04/02/2024 Blood pressure systolic 133 mm Hg 04/02/2024 Weight 198 lbs 04/02/2024 BMI 25.42 kg/m2 04/02/2024 Encounters Encounter Location Date Provider Diagnosis [facility] [address] [place] [address] 07/19/2023 Joe Oswald [facility] [address] [place] [address] 06/09/2023 Joe Oswald Failed back surgical syndrome M96.1 ; Radiculopathy of lumbar region M54.16 ; History of lumbar fusion Z98.1 and Spinal stenosis of lumbar region without neurogenic claudication M48.061 [facility] [address] [place] [address] 08/02/2023 Joe Oswald Failed back surgical syndrome M96.1 ; Radiculopathy of lumbar region M54.16 ; History of lumbar fusion Z98.1 and Spinal stenosis of lumbar region without neurogenic claudication M48.061 [facility] [address] [place] [address] 08/17/2023 Joe Oswald Failed back surgical syndrome M96.1 ; Radiculopathy of lumbar region M54.16 ; Spinal stenosis of lumbar region without neurogenic claudication M48.061 and History of lumbar fusion Z98.1 [facility] [address] [place] [address] 11/01/2023 Joe Oswald Postlaminectomy synd boo, not elsewhere classified M96.1 ; Radiculopathy of lumbar region M54.16 ; History of lumbar fusion Z98.1 ; Spinal stenosis of lumbar region without neurogenic claudication M48.061 and Facet degeneration of lumbosacral region M47.817 [facility] [address] [place] [address] 11/23/2023 Joe Oswald Facet degeneration o f lumbosacral region M47.817 ; Arthropathy of lumbar facet joint M47.816 ; History of lumbar fusion Z98.1 and Failed back surgical syndrome M96.1 [facility] [address] [place] [address] 01/18/2024 Joe Oswald Failed back surgical syndrome M96.1 ; Facet degeneration of lumbosacral region M47.817 ; Arthropathy of lumbar facet joint M47.816 and History of lumbar fusion Z98.1 [facility] [address] [place] [address] 04/02/2024 Joe Oswald Postlaminectomy synd boo, not elsewhere classified M96.1 ; History of lumbar fusion Z98.1 and Facet degeneration of lumbosacral region M47.817 [facility] [address] [place] [address] 07/20/2023 Joe Oswald Failed back surgical syndrome M96.1 [facility] [address] [place] [address] 08/03/2023 Joe Oswald [facility] [address] [place] [address] 01/09/2024 Joe Oswald ASSESSMENTS Encounter Date Diagnosis Assessment Notes Treatment Notes Treatment Clinical Notes 06/09/2023 Failed back surgical syndrome (ICD-10 - M96.1) Impression1. Chronic and intractable low back pain with intermittent bilateral L5 and overlapping S1 radiculopathy.2. Previous L4/5 PLIF (1992) with solid arthrodesis.3. Elements of post lumbar laminectomy syndrome.4. Severe L2/3 spinal canal stenosis.5. Grade 1 anterior spondylolisthesis L3/4.6. Patient has [email or web address] pump through which he receives intrathecal hydromorphone at dosage of 4.488 mg/day using simple continuous infusion mode. Pump KEYUR is 3 months.7. Parkinson's disease, currently stable.Plan1. Proceed with routine pump refill today. No changes in intrathecal dosing as above.2. Patient is scheduled for replacement of his Medtronic SynchroMed pump and possible spinal catheter revision/replacement at [facility] on 07/19/2023. Hibiclens scrubs x 3 provided for skin preparation prior to surgery. 23-hour admission will follow. 08/02/2023 Failed back surgical syndrome (ICD-10 - M96.1) Impression1. Chronic and intractable low back pain with intermittent bilateral L5 and overlapping S1 radiculopathy attributed to post lumbar laminectomy syndrome.2. Remote history L4/5 PLIF (1992) with solid arthrodesis.3. 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 Grade 1 anterior spondylolisthesis L3/4.5. Patient has implanted Medtronic SynchroMed pump delivering intrathecal hydromorphone at dosage of 4.49 mg/day using simple continuous infusion mode.6. Parkinson's disease.Plan1. Patient underwent replacement of his Medtronic SynchroMed II (20 mL) pump today at [facility]. Subarachnoid catheter system was found to be patent with easy and robust aspiration of cerebrospinal fluid from the old and new pump sideport's. Pump was repositioned medially and superiorly on abdominal wall per patient's request.2. 23-hour admission to follow-up.3. Patient to be discharged home on 08/03/2023, with discharge prescriptions cefadroxil 500 mg twice daily for 7 days, Bactroban ointment daily for dressing changes and hydrocodone/acetamino phen 7.5/325, 20 tablets, 1 tablet every 6 hours as needed pain. Prescriptions were sent electronically from the hospital at the time of discharge.4. Wound care sheet provided.5. Patient to follow-up on 08/15/2023, for postoperative visit/staple removal. We will also discuss his worsening axial low back pain, possibly related to adjacent segment facet arthropathy L3/4 and L5/S1, [place] segments above and below L4/5 fusion construct.6. Patient will require pump refill in August 2023. 07/20/2023 Failed back surgical syndrome (ICD-10 - M96.1) 08/17/2023 Failed back surgical syndrome (ICD-10 - M96.1) Impression1. Chronic and intractable low back pain with intermittent bilateral L5 and overlapping S1 radiculopathy attributed to post lumbar laminectomy syndrome.2. Remote history L4/5 PLIF (1992) with solid arthrodesis.3. Severe stenosis L2/3.4. Grade 1 anterior spondylolisthesis L3/4.5. Parkinson's disease.6. Patient has implanted Medtronic SynchroMed pump (20 mL) delivering hydromorphone at dosage of 4.493 mg/day using simple continuous infusion mode. Pump KEYUR 80 months.Plan1. Proceed with routine pump refill today. No changes in intrathecal dosing as above.2. After prepping the right abdomen carefully, I was able to aspirate 70 mL of serosanguineous fluid from the pump pocket. Mupirocin 2% ointment and sterile dressing applied. Meron were easily removed.3. Prescription cefadroxil 500 mg x 7 days was sent to his pharmacy. He will stop the medication if he develops diarrhea.4. He will keep me informed of status and if there are any problems they will alert my office.5. Otherwise, he will return on 10/31/2023 for his next pump refill. 11/01/2023 Postlaminectomy syndrome, not elsewhere classified (ICD-10 - M96.1) Impression1. Chronic and intractable low back pain with intermittent lumbar radiculopathy attributed to post lumbar laminectomy syndrome.2. Remote history L4/5 TLIF (1992) with solid arthrodesis.3. Severe stenosis L2/3.4. Grade 1 anterior spondylolisthesis L3/4.5. Progressive nonradicular low back pain associated with adjacent segment facet arthropathy L3/4 and L5/S1, vertebral segments above and below the fusion construct.6. Parkinson's disease.7. Patient has an implanted Medtronic SynchroMed pump (20 mL) delivering intrathecal hydromorphone at dosage of 4.493 mg/day using simple continuous infusion mode. Pump KEYUR 78 months.Plan1. Proceed with routine pump refill. No changes in intrathecal dosing.2. Obtain updated x-rays lumbar spine with flexion and extension views as well as AP pelvis.3. At some point in the near future, schedule for bilateral L3/4 and L5/S1 facet joint/medial branch injections. Sedation is optional. Patient understands that I want the x-rays obtained prior to intervention.4. Patient should maintain some form of daily home exercise program with maintenance of core strength and trunk flexibility.5. Otherwise, patient scheduled to return on 01/18/2024 for his next pump refill. 11/23/2023 Facet degeneration of lumbosacral region (ICD-10 - M47.817) Impression1. Chronic, intractable and worsening axial low back pain attributed to lumbar spondylosis with facet arthropathy L3/4 and L5/S1, segments above and below fusion construct.2. Remote history L4/5 posterior fusion (1992).3. Grade 1 anterior spondylolisthesis L3/4. Abnormal translation was noted with extension and reduction of listhesis with flexion.4. Post lumbar laminectomy syndrome.5. Patient has implanted Medtronic SynchroMed pump through which he receives intrathecal hydromorphone at dosage of 4.493 mg/day, simple continuous infusion mode.6. Parkinson's disease.Plan1. Proceed with bilateral L3/4 and L5/S1 facet joint/medial branch injections with fluoroscopy. Patient has eaten therefore sedation not possible.2. Patient will continue ongoing in-home physical therapy, 3 days/week. Participation in daily home exercise program with maintenance of core strength and trunk flexibility is advised. I realize patient has significant mobility issues with underlying Parkinson's disease.3. Return to clinic 01/18/2024 for next pump refill. At discharge, patient did not note significant change in presenting back pain. 01/18/2024 Failed back surgical syndrome (ICD-10 - M96.1) Impression1. Chronic and intractable axial low back pain attributed to lumbar facet arthropathy L3/4 and L5/S1 bilaterally, representing [place] segments above and below fusion construct.2. Remote history L4/5 posterior fusion (1992).3. Grade 1 anterior spondylolisthesis L3/4 with some translation noted on previous radiographs with bending maneuvers.4. Post lumbar laminectomy syndrome.5. Patient has implanted Medtronic SynchroMed pump through which he receives intrathecal hydromorphone at dosage of 4.493 mg/day using simple continuous infusion mode. Pump KEYUR 75 months.Plan1. Proceed with routine pump refill today. No changes in intrathecal dosing as above.2. Patient seems to be doing well at present, is well as I have seen him in the past, therefore pump sideport access not indicated.3. Patient will return for his next pump refill on 04/02/2024. 04/02/2024 Postlaminectomy syndrome, not elsewhere classified (ICD-10 [...] History of lumbar fusion (ICD-10 - Z98.1) 11/23/2023 Arthropathy of lumbar facet joint (ICD-10 - M47.816) 01/18/2024 Facet degeneration of lumbosacral region (ICD-10 - M47.817) 11/01/2023 Radiculopathy of lumbar region (ICD-10 - M54.16) 08/17/2023 Radiculopathy of lumbar region (ICD-10 - M54.16) 08/02/2023 Radiculopathy of lumbar region (ICD-10 - M54.16) 06/09/2023 Radiculopathy of lumbar region (ICD-10 - M54.16) 06/09/2023 History of lumbar fusion (ICD-10 - Z98.1) 08/02/2023 History of lumbar fusion (ICD-10 - Z98.1) 08/17/2023 Spinal stenosis of lumbar region without neurogenic claudication (ICD-10 - M48.061) 11/01/2023 History of lumbar fusion (ICD-10 - Z98.1) 11/23/2023 History of lumbar fusion (ICD-10 - Z98.1) 01/18/2024 Arthropathy of lumbar facet joint (ICD-10 - M47.816) 04/02/2024 Facet degeneration of lumbosacral region (ICD-10 - M47.817) 11/23/2023 Failed back surgical syndrome (ICD-10 - M96.1) 01/18/2024 History of lumbar fusion (ICD-10 - Z98.1) 11/01/2023 Spinal stenosis of lumbar region without neurogenic claudication (ICD-10 - M48.061) 08/17/2023 History of lumbar fusion (ICD-10 - Z98.1) 08/02/2023 Spinal stenosis of lumbar region without neurogenic claudication (ICD-10 - M48.061) 06/09/2023 Spinal stenosis of lumbar region without neurogenic claudication (ICD-10 - M48.061) 11/01/2023 Facet degeneration of lumbosacral region (ICD-10 - M47.817) PLAN OF TREATMENT Next Appt Details Provider Name:Joe russo, 06/13/2024 10:00:00 AM, [address], [place], [address], MEDICATIONS ADMINISTERED Medication Instructions Date of Administration Dosage Notes Bilateral L3/4 and L5/S1 Fac et Joint Injections with fluoroscopy 11/23/2023 Pump Side-Port Access and Ro tor Check with fluoroscopy 01/28/2020 Pump Side-Port Access with Fluoroscopy 03/13/2019 Routine Pump Refill 12/06/2019 Routine Pump Refill 02/20/2020 Routine Pump Refill 04/25/2020 Routine Pump Refill 06/26/2020 Routine Pump Refill 09/03/2020 Routine Pump Refill 11/05/2020 Routine Pump Refill 01/09/2021 Routine Pump Refill 03/12/2021 Routine Pump Refill 05/18/2021 Routine Pump Refill 07/23/2021 Routine Pump Refill 10/14/2021 Routine Pump Refill 01/07/2022 Routine Pump Refill 03/25/2022 Routine Pump Refill 06/11/2022 Routine Pump Refill 08/25/2022 Routine Pump Refill 11/03/2022 Routine Pump Refill 01/19/2023 Routine Pump Refill 03/28/2023 Routine Pump Refill 06/09/2023 Routine Pump Refill 08/17/2023 Routine Pump Refill 11/01/2023 Routine Pump Refill 01/18/2024 Routine Pump Refill 04/02/2024 MEDICAL (GENERAL) HISTORY Medical History History ICD Code Coronary Artery Disease/ Prior CT Parkinson's Disease Depression/ Anxiety blood clot right lung TIA Surgical History Surgery Date(Month/Year) L4/5 PLIF 1992 Medtronic SynchroMed II pump and replace ments, most recently 08-02-23 Hospitalization History Reason Date(Month/Year) [facility], blood clot, brain [facility] fusion
[2024-05-31 16:50] VITALS: BP 154/91; PULSE 75; RESP 16; TEMP 36.6; O2SAT 96; BMI 27.1
[2024-05-31 17:00] VITALS: O2SAT 96
--- NOTE | 2024-05-31 17:01 | ADMGEN ---
This patient, Joe Wellington, was admitted to 2nd Floor Room 207-1 as a skilled swing bed. Patient/family oriented to hospital policies and general routines including ID bracelet, bed and alarms, visiting hours, pain management, procedures, bathroom and other care routines, personal items, smoking policy, room service/diet, and visiting hours. Information on how to activate the Rapid Response Team has been discussed. Patient/Family are encouraged to report perceived risks to care and to ask questions if they do not understand what they are told or what they should do.
[2024-05-31 17:32] VITALS: BMI 27.1
[2024-05-31 17:41] VITALS: O2SAT 96
[2024-05-31] MEDS: ALPRAZolam (*CRX) 0.25 MG TABLET PO (19:53)
[2024-05-31] MEDS: HYDROcodone/acetaminophen (*CRX) 5-325 MG TABLET 1 TAB PO (19:53)
[2024-05-31] MEDS: CARBIDOPA/LEVODOPA 25/100 MG TABLET 3 TABLET PO (20:02)
[2024-05-31 20:29] LABS: Add Urine Microscopic? YES; Appearance Urine Clear (Clear); Bilirubin Urine Negative (Negative); Blood Urine Trace-intact (Negative); Color Urine Light Yellow (Yellow); Glucose Urine UA Negative (Negative); Ketones Urine Negative (Negative); Leukocyte Esterase Ur 1+ LEU/UL (Negative); Nitrate Urine Negative (Negative); Protein Urine Negative (Negative); Urobilinogen Urine 0.2 mg/dL (0.2-1.0)
[2024-05-31 20:40] LABS: Bacteria Urine None seen /hpf; RBC Urine 0-2 /hpf (0-2); Squamous Epithelial Cell Urine None seen /hpf (Few)
[2024-05-31] MEDS: MELATONIN 5 MG TABLET PO (20:57)
[2024-05-31] MEDS: PREGABALIN (*CRX) 50 MG CAPSULE 150 MG PO (20:57)
[2024-05-31] MEDS: SENNA/DOCUSATE SODIUM TABLET 1 TAB PO (20:57)
[2024-05-31] MEDS: ATORVASTATIN 40 MG TABLET PO (20:57)
[2024-05-31] MEDS: ASPIRIN 81 MG ENTERIC TABLET PO (20:57)
[2024-05-31] MEDS: DICLOFENAC SODIUM 1% 100 GM GEL (*BKC) 1 APPLIC TOPICAL (20:59)
[2024-06-01] VITALS (8 sets, daily range): BP systolic 114–137; BP diastolic 67–77; PULSE 70–83; RESP 16–20; TEMP 36.4–37.1; O2SAT 92–93
--- NOTE | 2024-06-01 08:16 | P.HP_ITS ---
H&P: HPI History of Present Illness Date/Time: 06/01/24 08:16 Chief Complaint: Rehabilitation Narrative: patient is a 74-year-old male who was transferred to [facility] swing bed for further rehabilitation following hospitalization for generalized weakness, possible TIA versus partial seizure, and severe emphysema. patient's has a PMH of Parkinson's, pulmonary embolism, aspiration pneumonia, chronic pain syndrome, CAD w/stent placed, HTN, IA, neurogenic bladder, emphysema, and TBI. during patient's hospitalization he was found to have a single episode of altered mental status that resolved on own patient had CT head which was negative and was seen by Neurology. patient had no recollection of event and neurology believes it likely could have been a postictal state from a partial complex seizure. MRI of brain showed no acute findings an EEG showed no significant abnormalities. patient had no further episodes during his admission and was seen by Physical and Occupational therapy who recommended continued rehabilitation family agreed to swing bed at [facility]. during his admission he did have some urinary retention which he does have history of neurogenic bladder and Valdez catheter had been placed with Flomax initiated he was discharged with Valdez catheter and bladder trials will be conducted here at [facility]. at time of admission patient did have some complaints pain 6/10 which she does have pain pump in place which delivers Dilaudid will add on oral [place] for further pain management. patient denied any chest pain, shortness of breath, nausea, vomiting, palpitations, dizziness, abdominal pain, fever or chills or chills. Review of Systems Review of Systems: All systems reviewed & are unremarkable except as noted in HPI and below PMFSH Past Medical History Medical History Actinic keratoses Chronic pain syndrome Pain pump. Coffee ground emesis Colon cancer screening Coronary artery disease Depression Essential (primary) hypertension Fracture of lumbar spine Gait abnormality Gastritis due to nonsteroidal anti-inflammatory drug History of seizure Attributed to tramadol. Low back pain Myocardial infarction Neurogenic bladder OAB OAB (overactive bladder) Parkinson's disease Parkinson's disease with dyskinesia and fluctuating manifestations Parkinsonism Pelvic fracture Reflux esophagitis Restrictive lung disease Traumatic brain injury Urethral stricture Surgical History Surgical History History of appendectomy History of cardiac catheterization 03/13/2020, 03/20/2021, 09/11/2021 History of cholecystectomy History of coronary artery stent placement History of dilation of urethra History of esophagogastroduodenoscopy (EGD) History of lumbar surgery History of partial colectomy History of tonsillectomy Status post glaucoma surgery Family History Family History Mother Diabetes mellitus Patient's mother is Father Patient's father is Sibling Breast cancer Cancer Son Thyroid cancer Melanoma Social History Social History Social History: Surrogate medical decision maker: Madan Wellington (son) or Stefanie Wellington (spouse). Code status: Full code. Smoking packs per day: 0.05 Smoking cigarettes per day: 1.0 Years smoked: 2 Smoking pack-years: 0.10 Smoking status: Former smoker Tobacco type: cigarettes Second hand tobacco smoke exposure: No Smoking end date: 07/11/69 Alcohol intake: never Substance use: never Substance use type: does not use Last use: quit drinking about a year ago when started on Parkinson's med Do You Feel Safe in your Home?: Yes Lack of Transportation: No Lack of Food: Never True Current Housing: I Have Housing Concerned About Future Housing: No Difficulty Paying Gas/Electric Bills: No Difficulty Paying for Meds: No Currently Unemployed: No Education: Bachelor's Degree Difficulty w/ Childcare or Family Care: No Living arrangements: with family Spiritual care concerns: No Meds Home Medications and Allergies Home Medications Medication Instructions Recorded Confirmed Type pregabalin 150 mg capsule (Lyrica) 150 mg PO HS 03/12/20 05/31/24 History carbidopa 25 mg-levodopa 100 mg 3 tablet PO QID 11/14/22 05/31/24 History tablet ascorbic acid (vitamin C) 1,000 mg 1 g PO DAILY 12/14/23 05/31/24 History tablet aspirin 81 mg tablet,delayed 81 mg PO HS 12/14/23 05/31/24 History release d-mannose 500 mg capsule 500 mg PO Q12H 12/14/23 05/31/24 History apixaban 5 mg tablet (Eliquis) 5 mg PO BID #180 tabs 01/10/24 05/31/24 Rx duloxetine 60 mg capsule,delayed 60 mg PO QAM 03/14/24 05/31/24 History release B-complex with vitamin C 1 tablet PO DAILY 04/09/24 05/31/24 History atorvastatin 40 mg tablet 40 mg PO HS 04/09/24 05/31/24 History cetirizine 10 mg tablet 10 mg PO DAILY 04/09/24 05/31/24 History cranberry extract 500 mg tablet 500 mg PO DAILY 04/09/24 05/31/24 History diclofenac sodium 1 % topical gel 2 g topical QID 04/09/24 05/31/24 History magnesium oxide 400 mg (241.3 mg 400 mg PO DAILY 04/09/24 05/31/24 History magnesium) tablet melatonin 5 mg PO HS 04/09/24 05/31/24 History mv-folic acid 200 mcg-D3 300 1 tablet PO DAILY 04/09/24 05/31/24 History unit-K2 20 [id number]#222 tablet (Stages Men's Multi-Vitamin) tobramycin-dexamethasone 0.3 %-0.1 1 applic RIGHT EYE DAILY 04/09/24 05/31/24 History % eye ointment (TobraDex) brimonidine 0.2 %-timolol 0.5 % 1 drp EACH EYE BID 04/24/24 05/31/24 History eye drops lisinopril 10 mg tablet 10 mg PO DAILY 04/24/24 05/31/24 History quetiapine 50 mg tablet (Seroquel) 50 mg PO BID #60 tabs 05/18/24 05/31/24 Rx fluticasone fur. 100 mcg-umeclid 1 inh inhalation DAILY 05/23/24 05/31/24 History 62.5 mcg-vilant 25 mcg inhalat.powder (Trelegy Ellipta) oxybutynin chloride 5 mg 10 mg PO DAILY 05/23/24 05/31/24 History tablet,extended release 24 hr pantoprazole 20 mg tablet,delayed 40 mg PO QAM 05/23/24 05/31/24 History release (Protonix) alprazolam 0.25 mg tablet 0.25 mg PO TID PRN Anxiety 05/25/24 05/31/24 History ferrous sulfate 325 mg (65 mg 325 mg PO DAILY #30 tabs 05/27/24 05/31/24 Rx iron) tablet,delayed release polyethylene glycol 3350 17 gram 17 g PO QAM #30 ea 05/27/24 05/31/24 Rx oral powder packet (Miralax) sennosides 8.6 mg-docusate sodium 1 tab PO HS #30 tabs 05/27/24 05/31/24 Rx 50 mg tablet (Senokot-S) tamsulosin 0.4 mg capsule 0.4 mg PO QAM #30 caps 05/27/24 05/31/24 Rx furosemide 20 mg tablet 20 mg PO DAILY #30 tabs 05/31/24 05/31/24 Rx Allergies Allergy/AdvReac Type Severity Reaction Status Date / Time tramadol Allergy Mild SEIZURE Verified 05/11/24 11:15 Beta-Blockers AdvReac Anxiety Verified 05/11/24 11:15 (Beta-Adrenergic Bloc ticagrelor [From Brilinta] AdvReac Dyspnea / Verified 05/11/24 11:15 SOB Vital Signs Vital Signs - 24 hr 05/31/24 16:50 05/31/24 17:41 05/31/24 17:00 Temperature 98 F Pulse Rate 75 Respiratory Rate 16 Blood Pressure 154/91 H Pulse Oximetry 96 96 96 Oxygen Delivery Room Air Room Air Room Air 06/01/24 00:00 06/01/24 00:10 06/01/24 00:00 Temperature 97.6 F 97.6 F Pulse Rate 83 83 Respiratory Rate 20 20 Blood Pressure 133/77 133/77 Pulse Oximetry 92 92 92 Oxygen Delivery Room Air Room Air Room Air 06/01/24 07:45 Temperature 98.8 F Pulse Rate 77 Respiratory Rate 16 Blood Pressure 137/77 Pulse Oximetry 93 Oxygen Delivery Room Air Exam Narrative: * GENERAL: Alert and oriented x 3 Pleasant male No acute distress. * EYES: EOMI. No scleral icterus. PERRLA. * HEENT: Moist mucous membranes. * LUNGS: Clear to auscultation bilaterally. No accessory muscle use. * CARDIOVASCULAR: Regular rate and rhythm. No murmur. No JVD. S1-S2 * ABDOMEN: Soft, non tenderness and non-distended. No palpable masses. * : Valdez catheter with clear yellow urine * EXTREMITIES: No edema. Non-tenderness, moving all extremities, however does have shuffle gait due to underlying Parkinson's * SKIN: No rashes or lesions. Skin warm, dry. * NEUROLOGIC: No focal neurological deficits. CN II-XII grossly intact * PSYCHIATRIC: Appropriate mood and affect. Good judgement and insight. No visual or auditory hallucinations. No suicidal or homicidal ideation. H&P: Results Labs Labs: Urine 05/31/24 Range/Units 20:26 Urine Color Light yellow (Yellow) Urine Appearance Clear (Clear) Urine pH 7.0 (5.0-8.0) Ur Specific [place] 1.010 (1.010-1.020) Urine Protein Negative (Negative) Urine Glucose (UA) Negative (Negative) Assessment and Plan Assessment and plan (1) Gait abnormality: Code(s): R26.9 - Unspecified abnormalities of gait and mobility Status: Acute Assessment and Plan: * secondary to deconditioned state worsening Parkinson's * PT/ OT for swing bed for continued rehabilitation (2) Parkinson's disease: Code(s): G20.A1 - Parkinson's disease without dyskinesia, without mention of fluctuations Status: Acute Assessment and Plan: * Resumed Sinemet 25/100, 3 tablets 4 times a day * PT/OT (3) Physical deconditioning: Code(s): R53.81 - Other malaise Status: Acute Assessment and Plan: * SEE ABOVE (4) CAD (coronary artery disease): Onset Date: ~03/2020 Qualifiers: Coronary Disease-Associated Artery/Lesion type: [place] artery [place] vs. transplanted heart: [place] heart Associated angina: with other forms of angina Qualified Code(s): I25.118 - Atherosclerotic heart disease of [place] coronary artery with other forms of angina pectoris Code(s): I25.10 - Atherosclerotic heart disease of [place] coronary artery without angina pectoris Status: Resolved Assessment and Plan: * Previous IA with stent * resumed GO ruiz * allergy to BB (5) Chronic back pain greater than 3 months duration: Onset Date: Unknown Code(s): M54.9 - Dorsalgia, unspecified; G89.29 - Other chronic pain Status: Chronic Assessment and Plan: * Chronic secondary to spinal stenosis * Pain pump with Dilaudid which he follows with Dr. Oswald outpatient will resume * will add [place] further pain management (6) Spinal stenosis: Qualifiers: Spinal region: lumbar Neurogenic claudication status: unspecified Qualified Code(s): M48.061 - Spinal stenosis, lumbar region without neurogenic claudication Code(s): M48.00 - Spinal stenosis, site unspecified Status: Chronic Assessment and Plan: * See Above (7) Chronic pain syndrome: Code(s): G89.4 - Chronic pain syndrome Status: Acute Assessment and Plan: * SEE ABOVE (8) Urinary retention: Code(s): R33.9 - Retention of urine, unspecified Status: Acute Assessment and Plan: * HX of neurogenic bladder * had retention at [facility] Valdez catheter was placed * was started on Flomax and will resume his oxybutynin * will attempt bladder trials and 2-3 days if continued retention we will need to follow up with Urology outpatient (9) Restrictive lung disease: Code(s): J98.4 - Other disorders of lung Status: Acute Assessment and Plan: * Chest x-rays dating back to 01/19/2013 shows small lung volumes there appeared to be an acute worsening between 03/18/2021 and 10/08/2021 with worsening elevation of the bilateral hemidiaphragms right greater than left. PFTs with severe restrictive abnormality on 05/03/2024 with no evidence of interstitial lung disease on his recent CT scans. * Was seen by Pulmonology at [facility] * this is expected with Parkinson's * was weaned to RA during the day and 2 L NC at night * New Orders per pulmonology: Trelegy inhaler 100 - 62.5-25 at 1 puff q.day Rescue albuterol 2 puffs q.4 hours p.r.n. shortness of breath or wheezing Oxygen at rest and with ambulation per facilities protocol. Currently is on room air at rest with saturations 94%. Oxygen 2 L when naps or sleeps. (10) Pulmonary emboli: Code(s): I26.99 - Other pulmonary embolism without acute cor pulmonale Status: Resolved Assessment and Plan: * HX of * resumed eliquis * CTA 05/24 no Pulmonary Embolism Plan Code status: Full code per patient DVT prophylaxis: Eliquis Stress ulcer prophylaxis: Protonix 40 daily PT/OT notes: swing bed Disposition: patient admitted to [facility] for continued rehabilitation to their swing bed. encourage ambulation with assistance and out of bed for all meals goal is to return home. Quality VTE Prophylaxis VTE prophylaxis: pharmacologic ordered -Patient's previous records reviewed on admission -ER notes reviewed in detail on admission -discussed all findings and current treatment plan with patient/Family/POA -Consultations reviewed for recommendations -Patient's disposition for safe discharge discussed with case finishing machine adjuster Dictation performed by [employer] direct speech recognition software, therefore game tester variants and typographical errors may occur. Hospitalist MIPS Advance Care Plan I have confirmed that the patient's Advanced Care Plan is present, code status is documented, or surrogate decision maker is listed in patient medical record.: Yes Medication Reconciliation I have utilized all available resources to obtain, update and review the patients current medications (includes all prescriptions, OTC, herbals, cannabis, and nutritional supplements).: Yes The patient is not eligible for med reconciliation; the patient is in a emergent medical situation where delaying treatment would jeopardize the patients health.: No
--- NOTE | 2024-06-01 08:54 | PHAR ---
VERIFIED PT.'S MED BROUGHT IN TO FACILITY: Tobramycin-Dexamethasone [Tobradex] 0.3-0.1 % ointment Apply thin strip to right eye daily.
[2024-06-01] MEDS: ASCORBIC ACID 500 MG TABLET 1000 MG PO (09:35)
[2024-06-01] MEDS: VITAMIN B COMPLEX CAPSULE 1 CAP PO (09:35)
[2024-06-01] MEDS: FERROUS SULFATE 325 MG TABLET DR PO (09:36)
[2024-06-01] MEDS: THERAPEUTIC MULTIVITAMINS/MINERALS TAB (*BKC) 1 TABLET PO (09:36)
[2024-06-01] MEDS: TAMSULOSIN HCL 0.4 MG CAPSULE PO (09:36)
[2024-06-01] MEDS: QUEtiapine FUMARATE 25 MG TABLET 50 MG PO ×2 (09:36→20:57)
[2024-06-01] MEDS: MAGNESIUM OXIDE 400 MG TABLET PO (09:36)
[2024-06-01] MEDS: lisinopriL 10 MG TABLET PO (09:36)
[2024-06-01] MEDS: DULoxetine HCL 30 MG CAPSULE.DR 60 MG PO (09:36)
[2024-06-01] MEDS: FUROSEMIDE 20 MG TABLET PO (09:36)
[2024-06-01] MEDS: oxyBUTYnin CHLORIDE XL 5 MG TAB.ER.24 10 MG PO (09:36)
[2024-06-01] MEDS: LORATADINE 10 MG TABLET PO (09:36)
[2024-06-01] MEDS: FLUTICASONE/UMECLIDIN/VILANTER 100-62.5-25 MCG ELLIPTA 1 PUFF INHALATION (09:37)
[2024-06-01] MEDS: TIMOLOL MALEATE 0.5% OP SOLN 5 ML BOTTLE 1 DROP EACH EYE ×2 (09:37→21:00)
[2024-06-01] MEDS: BRIMONIDINE TARTRATE 0.2% OP SOLN 5 ML BTL 1 DROP EACH EYE ×2 (09:37→20:58)
[2024-06-01] MEDS: PANTOPRAZOLE SOD SESQUIHYDRATE 20 MG TAB PO (09:37)
[2024-06-01] MEDS: DICLOFENAC SODIUM 1% 100 GM GEL (*BKC) 1 APPLIC TOPICAL ×4 (09:37→20:57)
[2024-06-01] MEDS: CARBIDOPA/LEVODOPA 25/100 MG TABLET 3 TABLET PO ×4 (09:42→19:49)
[2024-06-01] MEDS: HYDROcodone/acetaminophen (*CRX) 5-325 MG TABLET 1 TAB PO ×3 (09:42→19:48)
[2024-06-01] MEDS: APIXABAN 2.5 MG TABLET 5 MG BY MOUTH ×2 (10:06→20:58)
--- NOTE | 2024-06-01 15:43 | PHAR ---
VERIFIED PT.'S HOME MED D-MANNOSE 500MG BY MOUTH TWICE DAILY.
[2024-06-01] MEDS: ATORVASTATIN 40 MG TABLET PO (20:57)
[2024-06-01] MEDS: PREGABALIN (*CRX) 50 MG CAPSULE 150 MG PO (20:57)
[2024-06-01] MEDS: SENNA/DOCUSATE SODIUM TABLET 1 TAB PO (20:57)
[2024-06-01] MEDS: MELATONIN 5 MG TABLET PO (20:57)
[2024-06-01] MEDS: ASPIRIN 81 MG ENTERIC TABLET PO (20:57)
[2024-06-01] MEDS: [UNRECOGNIZED DRUG - OTHER] PO (20:59)
[2024-06-01] MEDS: D MANNOSE 500 MG PO (20:59)
[2024-06-02 01:00] VITALS: BP 93/62; PULSE 69; RESP 16; TEMP 36.1; O2SAT 92
[2024-06-02 08:00] VITALS: BP 110/60; PULSE 70; RESP 20; TEMP 36.4; O2SAT 95
[2024-06-02] MEDS: CARBIDOPA/LEVODOPA 25/100 MG TABLET 3 TABLET PO ×4 (08:05→20:00)
[2024-06-02] MEDS: VITAMIN B COMPLEX CAPSULE 1 CAP PO (09:36)
[2024-06-02] MEDS: APIXABAN 2.5 MG TABLET 5 MG BY MOUTH ×2 (09:36→21:25)
[2024-06-02] MEDS: ASCORBIC ACID 500 MG TABLET 1000 MG PO (09:36)
[2024-06-02] MEDS: lisinopriL 10 MG TABLET PO (09:36)
[2024-06-02] MEDS: FOLIC ACID 0.4 MG TABLET PO (09:36)
[2024-06-02] MEDS: DULoxetine HCL 30 MG CAPSULE.DR 60 MG PO (09:36)
[2024-06-02] MEDS: THERAPEUTIC MULTIVITAMINS/MINERALS TAB (*BKC) 1 TABLET PO (09:36)
[2024-06-02] MEDS: MAGNESIUM OXIDE 400 MG TABLET PO (09:36)
[2024-06-02] MEDS: PANTOPRAZOLE SOD SESQUIHYDRATE 20 MG TAB PO (09:37)
[2024-06-02] MEDS: oxyBUTYnin CHLORIDE XL 5 MG TAB.ER.24 10 MG PO (09:37)
[2024-06-02] MEDS: FERROUS SULFATE 325 MG TABLET DR PO (09:37)
[2024-06-02] MEDS: CYCLOBENZAPRINE HCL 10 MG TABLET PO ×2 (09:37→17:28)
[2024-06-02] MEDS: QUEtiapine FUMARATE 25 MG TABLET 50 MG PO ×2 (09:37→21:24)
[2024-06-02] MEDS: TAMSULOSIN HCL 0.4 MG CAPSULE PO (09:37)
[2024-06-02] MEDS: DICLOFENAC SODIUM 1% 100 GM GEL (*BKC) 1 APPLIC TOPICAL ×4 (09:38→21:26)
[2024-06-02] MEDS: [UNRECOGNIZED DRUG - OTHER] PO ×2 (09:38→21:26)
[2024-06-02] MEDS: TIMOLOL MALEATE 0.5% OP SOLN 5 ML BOTTLE 1 DROP EACH EYE ×2 (09:38→21:27)
[2024-06-02] MEDS: D MANNOSE 500 MG PO ×2 (09:38→21:26)
[2024-06-02] MEDS: FUROSEMIDE 20 MG TABLET PO (09:38)
[2024-06-02] MEDS: FLUTICASONE/UMECLIDIN/VILANTER 100-62.5-25 MCG ELLIPTA 1 PUFF INHALATION (09:38)
[2024-06-02] MEDS: BRIMONIDINE TARTRATE 0.2% OP SOLN 5 ML BTL 1 DROP EACH EYE ×2 (09:38→21:26)
[2024-06-02] MEDS: HYDROcodone/acetaminophen (*CRX) 5-325 MG TABLET 1 TAB PO (09:39)
--- NOTE | 2024-06-02 09:48 | PM.EVENT ---
Event Note Event Note Event Note: Patient with continued neck pain added Flexeril, lidocaine patch, and Oxy for severe pain patient as Severe cervical spondylosis.
[2024-06-02] MEDS: LIDOCAINE 5% PATCH 1 PATCH TRANSDERM (10:25)
[2024-06-02] MEDS: oxyCODONE/ACETAMINOPHEN (*CRX) 5-325 MG TABLET 1 TABLET PO ×3 (13:25→21:25)
[2024-06-02] MEDS: IPRATROPIUM 0.5 MG/ALBUTEROL SULFATE 2.5 MG AMPUL.NEB 3 ML INHALATION ×2 (13:25→18:43)
[2024-06-02 16:00] VITALS: BP 116/56; PULSE 68; RESP 18; TEMP 36.6; O2SAT 95
[2024-06-02] MEDS: PREGABALIN (*CRX) 50 MG CAPSULE 150 MG PO (21:24)
[2024-06-02] MEDS: MELATONIN 5 MG TABLET PO (21:24)
[2024-06-02] MEDS: SENNA/DOCUSATE SODIUM TABLET 1 TAB PO (21:24)
[2024-06-02] MEDS: ASPIRIN 81 MG ENTERIC TABLET PO (21:24)
[2024-06-02] MEDS: ATORVASTATIN 40 MG TABLET PO (21:25)
[2024-06-02] MEDS: TOBRAMYCIN RIGHT EYE (21:27)
[2024-06-02] MEDS: DEXAMETHASONE RIGHT EYE (21:27)
[2024-06-03] VITALS: BP 125/71; PULSE 69; RESP 16; TEMP 36.9; O2SAT 95
[2024-06-03] MEDS: IPRATROPIUM 0.5 MG/ALBUTEROL SULFATE 2.5 MG AMPUL.NEB 3 ML INHALATION (06:16)
[2024-06-03] MEDS: oxyCODONE/ACETAMINOPHEN (*CRX) 5-325 MG TABLET 1 TABLET PO ×3 (06:16→16:36)
[2024-06-03] MEDS: CYCLOBENZAPRINE HCL 10 MG TABLET PO ×2 (06:17→16:37)
[2024-06-03 08:00] VITALS: BP 130/76; PULSE 68; RESP 20; TEMP 36.4; O2SAT 95
[2024-06-03] MEDS: CARBIDOPA/LEVODOPA 25/100 MG TABLET 3 TABLET PO ×4 (08:03→20:25)
[2024-06-03] MEDS: DICLOFENAC SODIUM 1% 100 GM GEL (*BKC) 1 APPLIC TOPICAL ×4 (09:01→20:24)
[2024-06-03] MEDS: [UNRECOGNIZED DRUG - OTHER] PO ×2 (09:02→20:26)
[2024-06-03] MEDS: TIMOLOL MALEATE 0.5% OP SOLN 5 ML BOTTLE 1 DROP EACH EYE ×2 (09:02→20:26)
[2024-06-03] MEDS: FLUTICASONE/UMECLIDIN/VILANTER 100-62.5-25 MCG ELLIPTA 1 PUFF INHALATION (09:02)
[2024-06-03] MEDS: BRIMONIDINE TARTRATE 0.2% OP SOLN 5 ML BTL 1 DROP EACH EYE ×2 (09:02→20:26)
[2024-06-03] MEDS: D MANNOSE 500 MG PO ×2 (09:02→20:26)
[2024-06-03] MEDS: FERROUS SULFATE 325 MG TABLET DR PO (09:03)
[2024-06-03] MEDS: LIDOCAINE 5% PATCH 1 PATCH TRANSDERM (09:03)
[2024-06-03] MEDS: ASCORBIC ACID 500 MG TABLET 1000 MG PO (09:03)
[2024-06-03] MEDS: FUROSEMIDE 20 MG TABLET PO (09:04)
[2024-06-03] MEDS: PANTOPRAZOLE SOD SESQUIHYDRATE 20 MG TAB PO (09:04)
[2024-06-03] MEDS: FOLIC ACID 0.4 MG TABLET PO (09:04)
[2024-06-03] MEDS: MAGNESIUM OXIDE 400 MG TABLET PO (09:04)
[2024-06-03] MEDS: lisinopriL 10 MG TABLET PO (09:04)
[2024-06-03] MEDS: THERAPEUTIC MULTIVITAMINS/MINERALS TAB (*BKC) 1 TABLET PO (09:05)
[2024-06-03] MEDS: TAMSULOSIN HCL 0.4 MG CAPSULE PO (09:05)
[2024-06-03] MEDS: DULoxetine HCL 30 MG CAPSULE.DR 60 MG PO (09:05)
[2024-06-03] MEDS: QUEtiapine FUMARATE 25 MG TABLET 50 MG PO ×2 (09:05→20:25)
[2024-06-03] MEDS: APIXABAN 2.5 MG TABLET 5 MG BY MOUTH ×2 (09:06→20:25)
[2024-06-03] MEDS: oxyBUTYnin CHLORIDE XL 5 MG TAB.ER.24 10 MG PO (09:06)
[2024-06-03] MEDS: VITAMIN B COMPLEX CAPSULE 1 CAP PO (09:07)
[2024-06-03] MEDS: ALPRAZolam (*CRX) 0.25 MG TABLET PO ×2 (10:18→20:25)
--- NOTE | 2024-06-03 12:07 | PHAR ---
The patient's home med of [place]/vit d3 1000mg has been verified. RN stated OTC med bottle, clear gel capsule.
[2024-06-03 16:00] VITALS: BP 114/73; PULSE 67; RESP 18; TEMP 36.3; O2SAT 95
[2024-06-03] MEDS: SENNA/DOCUSATE SODIUM TABLET 1 TAB PO (20:25)
[2024-06-03] MEDS: ACETAMINOPHEN 325 MG TABLET 650 MG PO (20:25)
[2024-06-03] MEDS: MELATONIN 5 MG TABLET PO (20:25)
[2024-06-03] MEDS: ATORVASTATIN 40 MG TABLET PO (20:25)
[2024-06-03] MEDS: PREGABALIN (*CRX) 50 MG CAPSULE 150 MG PO (20:25)
[2024-06-03] MEDS: ASPIRIN 81 MG ENTERIC TABLET PO (20:25)
[2024-06-03] MEDS: DEXAMETHASONE RIGHT EYE (20:26)
[2024-06-03] MEDS: TOBRAMYCIN RIGHT EYE (20:26)
[2024-06-04] VITALS (9 sets, daily range): BP systolic 125–127; BP diastolic 72–76; PULSE 60–71; RESP 16–18; TEMP 36.2–36.9; O2SAT 92–96
[2024-06-04] MEDS: CYCLOBENZAPRINE HCL 10 MG TABLET PO ×3 (01:25→20:00)
[2024-06-04] MEDS: oxyCODONE/ACETAMINOPHEN (*CRX) 5-325 MG TABLET 1 TABLET PO ×5 (01:26→20:59)
[2024-06-04] MEDS: IPRATROPIUM 0.5 MG/ALBUTEROL SULFATE 2.5 MG AMPUL.NEB 3 ML INHALATION ×4 (01:26→16:41)
[2024-06-04] MEDS: ALPRAZolam (*CRX) 0.25 MG TABLET PO ×2 (08:54→16:59)
[2024-06-04] MEDS: FOLIC ACID 0.4 MG TABLET PO (08:54)
[2024-06-04] MEDS: CARBIDOPA/LEVODOPA 25/100 MG TABLET 3 TABLET PO ×4 (08:54→20:01)
[2024-06-04] MEDS: FERROUS SULFATE 325 MG TABLET DR PO (08:54)
[2024-06-04] MEDS: QUEtiapine FUMARATE 25 MG TABLET 50 MG PO ×2 (08:54→20:55)
[2024-06-04] MEDS: VITAMIN B COMPLEX CAPSULE 1 CAP PO (08:54)
[2024-06-04] MEDS: DULoxetine HCL 30 MG CAPSULE.DR 60 MG PO (08:54)
[2024-06-04] MEDS: OMEGA PO (08:55)
[2024-06-04] MEDS: ASCORBIC ACID 500 MG TABLET 1000 MG PO (08:55)
[2024-06-04] MEDS: THERAPEUTIC MULTIVITAMINS/MINERALS TAB (*BKC) 1 TABLET PO (08:55)
[2024-06-04] MEDS: TAMSULOSIN HCL 0.4 MG CAPSULE PO (08:55)
[2024-06-04] MEDS: MAGNESIUM OXIDE 400 MG TABLET PO (08:55)
[2024-06-04] MEDS: oxyBUTYnin CHLORIDE XL 5 MG TAB.ER.24 10 MG PO (08:55)
[2024-06-04] MEDS: APIXABAN 2.5 MG TABLET 5 MG BY MOUTH ×2 (08:55→20:55)
[2024-06-04] MEDS: lisinopriL 10 MG TABLET PO (08:55)
[2024-06-04] MEDS: [UNRECOGNIZED DRUG - OTHER] PO (08:55)
[2024-06-04] MEDS: VITAMIN D3 PO (08:55)
[2024-06-04] MEDS: FUROSEMIDE 20 MG TABLET PO (08:56)
[2024-06-04] MEDS: D MANNOSE 500 MG PO ×2 (08:56→20:57)
[2024-06-04] MEDS: DICLOFENAC SODIUM 1% 100 GM GEL (*BKC) 1 APPLIC TOPICAL ×4 (08:56→20:57)
[2024-06-04] MEDS: PANTOPRAZOLE SOD SESQUIHYDRATE 20 MG TAB PO (08:56)
[2024-06-04] MEDS: FLUTICASONE/UMECLIDIN/VILANTER 100-62.5-25 MCG ELLIPTA 1 PUFF INHALATION (08:56)
[2024-06-04] MEDS: TIMOLOL MALEATE 0.5% OP SOLN 5 ML BOTTLE 1 DROP EACH EYE ×2 (08:56→20:57)
[2024-06-04] MEDS: [UNRECOGNIZED DRUG - OTHER] PO ×2 (08:56→20:57)
[2024-06-04] MEDS: BRIMONIDINE TARTRATE 0.2% OP SOLN 5 ML BTL 1 DROP EACH EYE ×2 (08:57→20:56)
[2024-06-04] MEDS: LIDOCAINE 5% PATCH 1 PATCH TRANSDERM (08:57)
[2024-06-04] MEDS: polyethylene glycoL 3350 17 GM POWD.PACK PO (09:15)
--- NOTE | 2024-06-04 09:20 | PHAR ---
verified pt.'s home med: Complete [place]-D3 Softgels. Take 1 by mouth daily.
[2024-06-04] MEDS: methocarbamoL 750 MG TABLET PO ×3 (13:08→20:56)
--- NOTE | 2024-06-04 13:44 | PHAR ---
Addendum entered by Milly Danielson R.Ph. 06/04/24 14:17: updated he uses 100mg capsule, takes 2 caps (200mg) daily of coq10. Original Note: verified pt.'s home med: Coq10 (Ubiquinol) 200 mg Capsule Take 1 capsule by mouth daily.
[2024-06-04] MEDS: ASPIRIN 81 MG ENTERIC TABLET PO (20:55)
[2024-06-04] MEDS: PREGABALIN (*CRX) 50 MG CAPSULE 150 MG PO (20:55)
[2024-06-04] MEDS: MELATONIN 5 MG TABLET PO (20:55)
[2024-06-04] MEDS: ATORVASTATIN 40 MG TABLET PO (20:55)
[2024-06-04] MEDS: DEXAMETHASONE RIGHT EYE (20:56)
[2024-06-04] MEDS: SENNA/DOCUSATE SODIUM TABLET 1 TAB PO (20:56)
[2024-06-04] MEDS: TOBRAMYCIN RIGHT EYE (20:56)
--- NOTE | 2024-06-04 22:39 | PC.NURSE ---
Medication pass was started at 2100, with PRN pain medication given along with 8 other pills; two kinds of eye drops, one eye ointment, and Voltaren applied to three areas of the body. Patient became tired and needed to take a break after a few minutes. Medications were given over 45 minutes. Patient continues to be in pain of 10/10, despite the use of his pain pump, lidocaine patch, oral percocet 10 mg, and Voltaren. Patient does not want to use application of warm compress. He states that he doesn't know how much longer he can tolerate the pain.
[2024-06-05] VITALS (10 sets, daily range): BP systolic 125–177; BP diastolic 71–100; PULSE 68–90; RESP 16–19; TEMP 36.4–36.9; O2SAT 88–98
[2024-06-05] MEDS: IPRATROPIUM 0.5 MG/ALBUTEROL SULFATE 2.5 MG AMPUL.NEB 3 ML INHALATION ×2 (01:06→05:35)
[2024-06-05] MEDS: ALPRAZolam (*CRX) 0.25 MG TABLET PO ×2 (07:59→16:41)
[2024-06-05] MEDS: CARBIDOPA/LEVODOPA 25/100 MG TABLET 3 TABLET PO ×4 (07:59→20:14)
[2024-06-05] MEDS: oxyCODONE/ACETAMINOPHEN (*CRX) 5-325 MG TABLET 1 TABLET PO ×4 (07:59→20:15)
[2024-06-05] MEDS: polyethylene glycoL 3350 17 GM POWD.PACK PO (09:49)
[2024-06-05] MEDS: THERAPEUTIC MULTIVITAMINS/MINERALS TAB (*BKC) 1 TABLET PO (09:49)
[2024-06-05] MEDS: PANTOPRAZOLE SOD SESQUIHYDRATE 20 MG TAB PO (09:49)
[2024-06-05] MEDS: TAMSULOSIN HCL 0.4 MG CAPSULE PO (09:49)
[2024-06-05] MEDS: LIDOCAINE 5% PATCH 1 PATCH TRANSDERM (09:49)
[2024-06-05] MEDS: QUEtiapine FUMARATE 25 MG TABLET 50 MG PO ×2 (09:49→20:14)
[2024-06-05] MEDS: lisinopriL 10 MG TABLET PO (09:49)
[2024-06-05] MEDS: methocarbamoL 750 MG TABLET PO ×4 (09:49→20:14)
[2024-06-05] MEDS: VITAMIN B COMPLEX CAPSULE 1 CAP PO (09:49)
[2024-06-05] MEDS: FERROUS SULFATE 325 MG TABLET DR PO (09:50)
[2024-06-05] MEDS: MAGNESIUM OXIDE 400 MG TABLET PO (09:50)
[2024-06-05] MEDS: oxyBUTYnin CHLORIDE XL 5 MG TAB.ER.24 10 MG PO (09:50)
[2024-06-05] MEDS: APIXABAN 2.5 MG TABLET 5 MG BY MOUTH ×2 (09:50→20:16)
[2024-06-05] MEDS: ASCORBIC ACID 500 MG TABLET 1000 MG PO (09:50)
[2024-06-05] MEDS: DULoxetine HCL 30 MG CAPSULE.DR 60 MG PO (09:50)
[2024-06-05] MEDS: FOLIC ACID 0.4 MG TABLET PO (09:50)
[2024-06-05] MEDS: FUROSEMIDE 20 MG TABLET PO (09:50)
[2024-06-05] MEDS: COQ10 200 MG PO (09:51)
[2024-06-05] MEDS: [UNRECOGNIZED DRUG - OTHER] PO ×2 (09:51→20:17)
[2024-06-05] MEDS: [UNRECOGNIZED DRUG - OTHER] PO (09:51)
[2024-06-05] MEDS: [UNRECOGNIZED DRUG - OTHER] PO (09:51)
[2024-06-05] MEDS: OMEGA PO (09:51)
[2024-06-05] MEDS: VITAMIN D3 PO (09:51)
[2024-06-05] MEDS: D MANNOSE 500 MG PO ×2 (09:51→20:17)
[2024-06-05] MEDS: BRIMONIDINE TARTRATE 0.2% OP SOLN 5 ML BTL 1 DROP EACH EYE ×2 (09:52→20:16)
[2024-06-05] MEDS: TIMOLOL MALEATE 0.5% OP SOLN 5 ML BOTTLE 1 DROP EACH EYE ×2 (09:52→20:17)
[2024-06-05] MEDS: FLUTICASONE/UMECLIDIN/VILANTER 100-62.5-25 MCG ELLIPTA 1 PUFF INHALATION (09:52)
[2024-06-05] MEDS: DICLOFENAC SODIUM 1% 100 GM GEL (*BKC) 1 APPLIC TOPICAL ×4 (09:52→20:16)
[2024-06-05] MEDS: cloNIDine HCL 0.1 MG TABLET PO (17:50)
--- NOTE | 2024-06-05 18:02 | PC.NURSE ---
Late entry: Stephanie Hope, FIRE EXTINGUISHER TESTER/Hospitalist, notified of blood pressure being 160/100 via manual blood pressure. No specific c/o offered. New order received for Clonidine 0.1mg p.o. one time.
[2024-06-05] MEDS: ASPIRIN 81 MG ENTERIC TABLET PO (20:14)
[2024-06-05] MEDS: MELATONIN 5 MG TABLET PO (20:14)
[2024-06-05] MEDS: PREGABALIN (*CRX) 50 MG CAPSULE 150 MG PO (20:15)
[2024-06-05] MEDS: SENNA/DOCUSATE SODIUM TABLET 1 TAB PO (20:15)
[2024-06-05] MEDS: CYCLOBENZAPRINE HCL 10 MG TABLET PO (20:15)
[2024-06-05] MEDS: ATORVASTATIN 40 MG TABLET PO (20:15)
[2024-06-05] MEDS: DEXAMETHASONE RIGHT EYE (20:17)
[2024-06-05] MEDS: TOBRAMYCIN RIGHT EYE (20:17)
[2024-06-06] VITALS (9 sets, daily range): BP systolic 133–141; BP diastolic 57–84; PULSE 62–95; RESP 14–18; TEMP 36.2–36.8; O2SAT 92–98
[2024-06-06] MEDS: ASCORBIC ACID 500 MG TABLET 1000 MG PO (08:10)
[2024-06-06] MEDS: CARBIDOPA/LEVODOPA 25/100 MG TABLET 3 TABLET PO ×4 (08:11→20:11)
[2024-06-06] MEDS: lisinopriL 10 MG TABLET PO (08:20)
[2024-06-06] MEDS: LIDOCAINE 5% PATCH 1 PATCH TRANSDERM (09:06)
[2024-06-06] MEDS: polyethylene glycoL 3350 17 GM POWD.PACK PO (09:07)
[2024-06-06] MEDS: oxyBUTYnin CHLORIDE XL 5 MG TAB.ER.24 10 MG PO (09:07)
[2024-06-06] MEDS: FOLIC ACID 0.4 MG TABLET PO (09:07)
[2024-06-06] MEDS: THERAPEUTIC MULTIVITAMINS/MINERALS TAB (*BKC) 1 TABLET PO (09:08)
[2024-06-06] MEDS: VITAMIN B COMPLEX CAPSULE 1 CAP PO (09:08)
[2024-06-06] MEDS: APIXABAN 2.5 MG TABLET 5 MG BY MOUTH ×2 (09:09→20:07)
[2024-06-06] MEDS: QUEtiapine FUMARATE 25 MG TABLET 50 MG PO ×2 (09:09→20:06)
[2024-06-06] MEDS: methocarbamoL 750 MG TABLET PO ×4 (09:09→20:07)
[2024-06-06] MEDS: MAGNESIUM OXIDE 400 MG TABLET PO (09:10)
[2024-06-06] MEDS: TAMSULOSIN HCL 0.4 MG CAPSULE PO (09:11)
[2024-06-06] MEDS: DULoxetine HCL 30 MG CAPSULE.DR 60 MG PO (09:12)
[2024-06-06] MEDS: FUROSEMIDE 20 MG TABLET PO (09:12)
[2024-06-06] MEDS: FERROUS SULFATE 325 MG TABLET DR PO (09:12)
[2024-06-06] MEDS: DICLOFENAC SODIUM 1% 100 GM GEL (*BKC) 1 APPLIC TOPICAL ×3 (09:14→20:06)
[2024-06-06] MEDS: PANTOPRAZOLE SOD SESQUIHYDRATE 20 MG TAB PO (09:15)
[2024-06-06] MEDS: COQ10 200 MG PO (09:15)
[2024-06-06] MEDS: [UNRECOGNIZED DRUG - OTHER] PO (09:15)
[2024-06-06] MEDS: [UNRECOGNIZED DRUG - OTHER] PO ×2 (09:15→20:12)
[2024-06-06] MEDS: D MANNOSE 500 MG PO ×2 (09:15→20:12)
[2024-06-06] MEDS: TIMOLOL MALEATE 0.5% OP SOLN 5 ML BOTTLE 1 DROP EACH EYE ×2 (09:17→20:06)
[2024-06-06] MEDS: BRIMONIDINE TARTRATE 0.2% OP SOLN 5 ML BTL 1 DROP EACH EYE ×2 (09:17→20:06)
[2024-06-06] MEDS: FLUTICASONE/UMECLIDIN/VILANTER 100-62.5-25 MCG ELLIPTA 1 PUFF INHALATION (10:13)
[2024-06-06] MEDS: OMEGA PO (10:15)
[2024-06-06] MEDS: VITAMIN D3 PO (10:15)
[2024-06-06] MEDS: [UNRECOGNIZED DRUG - OTHER] PO (10:15)
[2024-06-06] MEDS: IPRATROPIUM 0.5 MG/ALBUTEROL SULFATE 2.5 MG AMPUL.NEB 3 ML INHALATION (10:50)
[2024-06-06] MEDS: oxyCODONE/ACETAMINOPHEN (*CRX) 5-325 MG TABLET 1 TABLET PO ×3 (12:21→23:28)
--- NOTE | 2024-06-06 12:28 | PC.NURSE ---
At 1130 the pt's called requesting a lab draw for rhabdomyolysis. RN explained to the that we will call the LOGISTICS RESEARCH ENGINEER ( [place]) and ask.
--- NOTE | 2024-06-06 12:31 | PCDIET ---
Today at 1210 [employer] informs she spoke to r/t Rhabdomyolysis. Order was given per [employer] for BNP and Urine with culture. Verbal order read back and verified. Orders placed. informed while visiting and agrees with plan of care.
[2024-06-06 12:57] LABS: Anion Gap 6 mmol/L (4-12); Blood Urea Nitrogen 13 mg/dL (7-18); Calcium 9.3 mg/dL (8.5-10.1); Carbon Dioxide 29 mmol/L (21-32); Chloride 100 mmol/L (98-108); Estimated CRCL calculation 80 ml/min; Estimated Glomerular Filt Rate > 60; Glucose 128 mg/dL (70-99); Osmolality Calculated 282 mOsm/kg (285-295); Potassium 4.1 mmol/L (3.5-5.1); Sodium 135 mmol/L (136-145)
[2024-06-06 14:49] LABS: Add Urine Microscopic? YES; Appearance Urine Sl Cloudy (Clear); Bilirubin Urine Negative (Negative); Blood Urine 2+ (Negative); Color Urine Light Yellow (Yellow); Glucose Urine UA Negative (Negative); Ketones Urine Negative (Negative); Leukocyte Esterase Ur 1+ (Negative); Nitrate Urine Positive (Negative); Protein Urine Negative (Negative); Urobilinogen Urine 0.2 mg/dL (0.2-1.0); pH Urine 5.5 (5.0-8.0)
[2024-06-06 14:55] LABS: Bacteria Urine 2+ /hpf; RBC Urine 21-50 /hpf (0-2); Squamous Epithelial Cell Urine Rare /hpf (Few)
[2024-06-06] MEDS: ALPRAZolam (*CRX) 0.25 MG TABLET PO ×2 (16:17→23:28)
--- NOTE | 2024-06-06 17:26 | PC.NURSE ---
stat lock replaced, cream applied to scrotum, pt tx back to bed with x3 nurses and donaldo hong
--- NOTE | 2024-06-06 18:08 | PC.NURSE ---
ok per Iván for family to use conference room at end of hallway for thanksgiving gathering tomorrow, final ok to come from day charge nurse ej
[2024-06-06] MEDS: PREGABALIN (*CRX) 50 MG CAPSULE 150 MG PO (20:07)
[2024-06-06] MEDS: ASPIRIN 81 MG ENTERIC TABLET PO (20:07)
[2024-06-06] MEDS: SENNA/DOCUSATE SODIUM TABLET 1 TAB PO (20:07)
[2024-06-06] MEDS: ATORVASTATIN 40 MG TABLET PO (20:07)
[2024-06-06] MEDS: SULFAMETHOXAZOLE/TRIMETHOPRIM 800/160 MG DS TABLET 1 TAB PO (20:07)
[2024-06-06] MEDS: CYCLOBENZAPRINE HCL 10 MG TABLET PO (20:08)
[2024-06-06] MEDS: MELATONIN 5 MG TABLET PO (20:08)
[2024-06-07 05:30] VITALS: O2SAT 95
[2024-06-07 08:00] VITALS: BP 132/76; PULSE 76; RESP 18; TEMP 36.3; O2SAT 95
[2024-06-07] MEDS: FLUTICASONE/UMECLIDIN/VILANTER 100-62.5-25 MCG ELLIPTA 1 PUFF INHALATION (08:49)
[2024-06-07] MEDS: CARBIDOPA/LEVODOPA 25/100 MG TABLET 3 TABLET PO ×4 (08:50→19:40)
[2024-06-07] MEDS: [UNRECOGNIZED DRUG - OTHER] PO ×2 (08:51→20:19)
[2024-06-07] MEDS: COQ10 200 MG PO (08:51)
[2024-06-07] MEDS: ALPRAZolam (*CRX) 0.25 MG TABLET PO ×2 (08:51→20:17)
[2024-06-07] MEDS: TAMSULOSIN HCL 0.4 MG CAPSULE PO (08:51)
[2024-06-07] MEDS: VITAMIN D3 PO (08:51)
[2024-06-07] MEDS: FERROUS SULFATE 325 MG TABLET DR PO (08:51)
[2024-06-07] MEDS: THERAPEUTIC MULTIVITAMINS/MINERALS TAB (*BKC) 1 TABLET PO (08:51)
[2024-06-07] MEDS: MAGNESIUM OXIDE 400 MG TABLET PO (08:51)
[2024-06-07] MEDS: VITAMIN B COMPLEX CAPSULE 1 CAP PO (08:51)
[2024-06-07] MEDS: [UNRECOGNIZED DRUG - OTHER] PO (08:51)
[2024-06-07] MEDS: OMEGA PO (08:51)
[2024-06-07] MEDS: D MANNOSE 500 MG PO ×2 (08:51→20:19)
[2024-06-07] MEDS: [UNRECOGNIZED DRUG - OTHER] PO (08:51)
[2024-06-07] MEDS: ASCORBIC ACID 500 MG TABLET 1000 MG PO (08:53)
[2024-06-07] MEDS: lisinopriL 10 MG TABLET PO (08:53)
[2024-06-07] MEDS: FOLIC ACID 0.4 MG TABLET PO (08:53)
[2024-06-07] MEDS: FUROSEMIDE 20 MG TABLET PO (08:53)
[2024-06-07] MEDS: SULFAMETHOXAZOLE/TRIMETHOPRIM 800/160 MG DS TABLET 1 TAB PO ×2 (08:53→20:17)
[2024-06-07] MEDS: APIXABAN 2.5 MG TABLET 5 MG BY MOUTH ×2 (08:54→20:15)
[2024-06-07] MEDS: PANTOPRAZOLE SOD SESQUIHYDRATE 20 MG TAB PO (08:54)
[2024-06-07] MEDS: QUEtiapine FUMARATE 25 MG TABLET 50 MG PO ×2 (08:54→20:16)
[2024-06-07] MEDS: CYCLOBENZAPRINE HCL 10 MG TABLET PO ×2 (08:54→20:18)
[2024-06-07] MEDS: oxyBUTYnin CHLORIDE XL 5 MG TAB.ER.24 10 MG PO (08:54)
[2024-06-07] MEDS: oxyCODONE/ACETAMINOPHEN (*CRX) 5-325 MG TABLET 1 TABLET PO ×2 (08:54→19:40)
[2024-06-07] MEDS: DULoxetine HCL 30 MG CAPSULE.DR 60 MG PO (08:54)
[2024-06-07] MEDS: methocarbamoL 750 MG TABLET PO ×4 (08:54→20:15)
[2024-06-07] MEDS: TIMOLOL MALEATE 0.5% OP SOLN 5 ML BOTTLE 1 DROP EACH EYE ×2 (08:55→20:18)
[2024-06-07] MEDS: BRIMONIDINE TARTRATE 0.2% OP SOLN 5 ML BTL 1 DROP EACH EYE ×2 (08:55→20:18)
[2024-06-07] MEDS: ACETAMINOPHEN 325 MG TABLET 650 MG PO (08:55)
[2024-06-07] MEDS: DICLOFENAC SODIUM 1% 100 GM GEL (*BKC) 1 APPLIC TOPICAL ×4 (08:55→20:20)
[2024-06-07] MEDS: LIDOCAINE 5% PATCH 1 PATCH TRANSDERM (08:57)
[2024-06-07] MEDS: polyethylene glycoL 3350 17 GM POWD.PACK PO (08:57)
[2024-06-07 16:00] VITALS: BP 116/57; PULSE 72; RESP 18; TEMP 36.3; O2SAT 95
[2024-06-07 20:00] VITALS: PULSE 72; RESP 18; O2SAT 95
[2024-06-07] MEDS: PREGABALIN (*CRX) 50 MG CAPSULE 150 MG PO (20:15)
[2024-06-07] MEDS: ATORVASTATIN 40 MG TABLET PO (20:15)
[2024-06-07] MEDS: MELATONIN 5 MG TABLET PO (20:17)
[2024-06-07] MEDS: ASPIRIN 81 MG ENTERIC TABLET PO (20:17)
[2024-06-07] MEDS: SENNA/DOCUSATE SODIUM TABLET 1 TAB PO (20:17)
--- NOTE | 2024-06-07 23:00 | PC.NURSE ---
ASSUMED CARE. REPORT RECEIVED FROM KERRY DANIEL
[2024-06-08] VITALS: BP 131/80; PULSE 81; RESP 16; TEMP 36.4; O2SAT 93
--- NOTE | 2024-06-08 01:00 | PC.NURSE ---
patient noted lying with HOB elevated, head resting on right side rail, offered to reposition patient, he refuses at this time.
[2024-06-08 05:30] VITALS: O2SAT 94
--- NOTE | 2024-06-08 06:54 | PC.NURSE ---
REPORT GIVEN TO TAYLOR DANIEL
[2024-06-08 08:00] VITALS: BP 131/72; PULSE 84; RESP 18; TEMP 36.4; O2SAT 94; O2SAT 95
[2024-06-08] MEDS: oxyBUTYnin CHLORIDE XL 5 MG TAB.ER.24 10 MG PO (08:17)
[2024-06-08] MEDS: QUEtiapine FUMARATE 25 MG TABLET 50 MG PO ×2 (08:18→20:04)
[2024-06-08] MEDS: THERAPEUTIC MULTIVITAMINS/MINERALS TAB (*BKC) 1 TABLET PO (08:19)
[2024-06-08] MEDS: ASCORBIC ACID 500 MG TABLET 1000 MG PO (08:19)
[2024-06-08] MEDS: FOLIC ACID 0.4 MG TABLET PO (08:20)
[2024-06-08] MEDS: methocarbamoL 750 MG TABLET PO ×4 (08:20→20:04)
[2024-06-08] MEDS: TAMSULOSIN HCL 0.4 MG CAPSULE PO (08:20)
[2024-06-08] MEDS: MAGNESIUM OXIDE 400 MG TABLET PO (08:20)
[2024-06-08] MEDS: lisinopriL 10 MG TABLET PO (08:21)
[2024-06-08] MEDS: FERROUS SULFATE 325 MG TABLET DR PO (08:21)
[2024-06-08] MEDS: DULoxetine HCL 30 MG CAPSULE.DR 60 MG PO (08:21)
[2024-06-08] MEDS: APIXABAN 2.5 MG TABLET 5 MG BY MOUTH ×2 (08:22→20:04)
[2024-06-08] MEDS: SULFAMETHOXAZOLE/TRIMETHOPRIM 800/160 MG DS TABLET 1 TAB PO ×2 (08:22→20:04)
[2024-06-08] MEDS: FUROSEMIDE 20 MG TABLET PO (08:22)
[2024-06-08] MEDS: PANTOPRAZOLE SOD SESQUIHYDRATE 20 MG TAB PO (08:22)
[2024-06-08] MEDS: VITAMIN B COMPLEX CAPSULE 1 CAP PO (08:23)
[2024-06-08] MEDS: COQ10 200 MG PO (08:24)
[2024-06-08] MEDS: [UNRECOGNIZED DRUG - OTHER] PO (08:24)
[2024-06-08] MEDS: BRIMONIDINE TARTRATE 0.2% OP SOLN 5 ML BTL 1 DROP EACH EYE ×2 (08:24→20:05)
[2024-06-08] MEDS: OMEGA PO (08:25)
[2024-06-08] MEDS: D MANNOSE 500 MG PO ×2 (08:25→20:05)
[2024-06-08] MEDS: [UNRECOGNIZED DRUG - OTHER] PO ×2 (08:25→20:05)
[2024-06-08] MEDS: VITAMIN D3 PO (08:25)
[2024-06-08] MEDS: [UNRECOGNIZED DRUG - OTHER] PO (08:25)
[2024-06-08] MEDS: DICLOFENAC SODIUM 1% 100 GM GEL (*BKC) 1 APPLIC TOPICAL ×4 (08:26→20:05)
[2024-06-08] MEDS: polyethylene glycoL 3350 17 GM POWD.PACK PO (08:26)
[2024-06-08] MEDS: LIDOCAINE 5% PATCH 1 PATCH TRANSDERM (08:28)
[2024-06-08] MEDS: FLUTICASONE/UMECLIDIN/VILANTER 100-62.5-25 MCG ELLIPTA 1 PUFF INHALATION (08:30)
[2024-06-08] MEDS: TIMOLOL MALEATE 0.5% OP SOLN 5 ML BOTTLE 1 DROP EACH EYE ×2 (08:31→20:05)
[2024-06-08] MEDS: CARBIDOPA/LEVODOPA 25/100 MG TABLET 3 TABLET PO ×4 (08:36→20:04)
--- NOTE | 2024-06-08 08:43 | P.PNIM_ITS ---
Progress Note: A&P Assessment and Plan (1) Gait abnormality: Code(s): R26.9 - Unspecified abnormalities of gait and mobility Status: Acute Assessment and Plan: * secondary to deconditioned state worsening Parkinson's * Continue PT and OT * Care conference scheduled for June 14 (2) Physical deconditioning: Code(s): R53.81 - Other malaise Status: Acute Assessment and Plan: * SEE ABOVE (3) Parkinson's disease: Code(s): G20.A1 - Parkinson's disease without dyskinesia, without mention of fluctuations Status: Acute Assessment and Plan: * Continue Sinemet 25/100, 3 tablets 4 times a day * Continue PT/OT (4) CAD (coronary artery disease): Onset Date: ~03/2020 Qualifiers: Associated angina: with other forms of angina Coronary Disease-Assoc iated Artery/Lesion type: [place] artery [place] vs. transplanted heart: [place] heart Qualified Code(s): I25.118 - Atherosclerotic heart disease of [place] coronary artery with other forms of angina pectoris Code(s): I25.10 - Atherosclerotic heart disease of [place] coronary artery without angina pectoris Status: Resolved Assessment and Plan: * Previous KS with stent * continue eliquis, ASA * allergy to betablockers (5) Chronic back pain greater than 3 months duration: Onset Date: Unknown Code(s): M54.9 - Dorsalgia, unspecified; G89.29 - Other chronic pain Status: Chronic Assessment and Plan: * Chronic secondary to spinal stenosis * Pain pump with Dilaudid which he follows with Dr. Oswald outpatient. He is due for refill on the however trying to make arrangements for them to come here to fill. * Continue Wideman (6) Spinal stenosis: Qualifiers: Neurogenic claudication status: unspecified Spinal region: lumbar Qualified Code(s): M48.061 - Spinal stenosis, lumbar region without neurogenic claudication Code(s): M48.00 - Spinal stenosis, site unspecified Status: Chronic Assessment and Plan: * See Above (7) Urinary retention: Code(s): R33.9 - Retention of urine, unspecified Status: Acute Assessment and Plan: * HX of neurogenic bladder * had retention at [facility] Valdez catheter was placed * Continue Flomax and oxybutynin * continue Valdez catheter for now due to deconditioning, will likely need outpatient neurology (8) Restrictive lung disease: Code(s): J98.4 - Other disorders of lung Status: Acute Assessment and Plan: * Chest x-rays dating back to 01/19/2013 shows small lung volumes there appeared to be an acute worsening between 03/18/2021 and 10/08/2021 with worsening elevation of the bilateral hemidiaphragms right greater than left. PFTs with severe restrictive abnormality on 05/03/2024 with no evidence of interstitial lung disease on his recent CT scans. * Was seen by Pulmonology at [place] * this is expected with Parkinson's * was weaned to RA during the day and 2 L NC at night New Orders per pulmonology: * continueTrelegy inhaler 100 - 62.5-25 at 1 puff q.day * continue Rescue albuterol 2 puffs q.4 hours p.r.n. shortness of breath or wheezing * Oxygen at rest and with ambulation per facilities protocol. Currently is on room air at rest with saturations 94%. * Oxygen 2 L when naps or sleeps as needed (9) Pulmonary emboli: Code(s): I26.99 - Other pulmonary embolism without acute cor pulmonale Status: Resolved Assessment and Plan: * continue Eliquis (10) Acute UTI: Code(s): N39.0 - Urinary tract infection, site not specified Status: Inactive Assessment and Plan: * UA was sent on 06/06/2024 and showed slightly cloudy urine, 2+ urine blood, positive nitrate, 1+ leukocyte, 21-50 urine RBC, 4-6 urine WBC, 2+ bacteria * urine culture showing Gram-negative bacilli isolated on preliminary read * patient has had E coli in the past which was pansensitive on 11/29/2023 urine culture * continue Bactrim for now Time Spent With Patient Time with patient: 25 - 35 minutes Subjective Date/time seen: 06/08/24 08:43 Interval history: Interval history: This is a 74-year-old male who presented to [facility] bed program for for rehab on 06/01/2024 for generalized weakness, possible TIA versus partial seizure, severe emphysema. Patient has a significant past medical history of Parkinson's And TBI. Subjective: Patient denies any new complaints today. He is still requiring max assist for getting up out of the bed. Care conference scheduled for June 14. Labs reviewed. Review of Systems Review of Systems: All systems reviewed & are unremarkable except as noted in HPI and below Objective Data Vital Signs Vital Signs: Vital Signs - 24 hr 06/07/24 16:00 06/07/24 20:00 06/08/24 00:00 Temperature 97.3 F L 97.6 F Pulse Rate 72 72 81 Respiratory Rate 18 18 16 Blood Pressure 116/57 L 131/80 Pulse Oximetry 95 95 93 Oxygen Delivery Room Air Room Air Room Air 06/08/24 08:00 Temperature 97.6 F Pulse Rate 84 Respiratory Rate 18 Blood Pressure 131/72 Pulse Oximetry 94 Oxygen Delivery Room Air Intake/Output Intake/Output: Intake & Output 06/05/24 06/06/24 06/07/24 06/08/24 23:59 23:59 23:59 23:59 Intake Total 1940 2337 2640 240 Output Total 1550 1974 1999 300 Balance 390 362 640 -60 Meds/Results Medications: Active Medications Generic Name Dose Route Start Last Admin Trade Name Freq PRN Reason Stop Dose Admin Acetaminophen 650 mg 05/31/24 17:41 06/07/24 08:55 Acetaminophen 325 Mg Tablet PO 650 mg Q4H PRN Administration Mild Pain (1-3) or Fever Albuterol/Ipratropium 3 ml 06/05/24 11:26 06/06/24 10:50 Ipratropium 0.5 Mg/Albuterol Sulfate 2.5 Mg Ampul.Neb 3 Ml INHALATION 3 ml Q6HRT PRN Administration sob Alprazolam 0.25 mg 05/31/24 17:43 06/07/24 20:17 Alprazolam (*Crx) 0.25 Mg Tablet PO 0.25 mg TID PRN Administration Anxiety Apixaban 5 mg 06/01/24 09:00 06/08/24 08:22 Apixaban 2.5 Mg Tablet BY MOUTH 5 mg Q12HR KOFI Administration Ascorbic Acid 1,000 mg 06/01/24 09:00 06/08/24 08:19 Ascorbic Acid 500 Mg Tablet PO 1,000 mg DAILY KOFI Administration Aspirin 81 mg 05/31/24 21:00 06/07/24 20:17 Aspirin 81 Mg Enteric Tablet PO 81 mg HS KOFI Administration Atorvastatin Calcium 40 mg 05/31/24 21:00 11/28/24 20:15 Atorvastatin 40 Mg Tablet PO 40 mg HS KOFI Administration Brimonidine Tartrate 1 drop 06/01/24 09:00 06/08/24 08:24 Brimonidine Tartrate 0.2% Op Soln 5 Ml Btl EACH EYE 1 drop Q12HR KOFI Administration Carbidopa/Levodopa 3 tablet 05/31/24 20:00 06/08/24 08:36 Carbidopa/Levodopa 25/100 Mg Tablet PO 3 tablet 0800,1200,1600,2000 KOFI Administration Cyclobenzaprine HCl 10 mg 06/01/24 15:16 06/07/24 20:18 Cyclobenzaprine Hcl 10 Mg Tablet PO 10 mg Q8H PRN Administration Muscle Spasm Diclofenac Sodium 1 applic 05/31/24 21:00 06/08/24 08:26 Diclofenac Sodium 1% 100 Gm Gel (*[facility]) TOPICAL 1 applic QID KOFI Administration Duloxetine HCl 60 mg 06/01/24 09:00 06/08/24 08:21 Duloxetine Hcl 30 Mg Capsule.Dr PO 60 mg QAM KOFI Administration Ferrous Sulfate 325 mg 06/01/24 09:00 06/08/24 08:21 Ferrous Sulfate [address] PO 325 mg DAILY KOFI Administration Fluticasone/Umeclidinium/Vilanterol 1 puff 06/01/24 09:00 06/08/24 08:30 Fluticasone/Umeclidin/Vilanter 100-62.5-25 Mcg Ellipta INHALATION 1 puff DAILY KOFI Administration Folic Acid 0.4 mg 06/02/24 09:00 06/08/24 08:20 Folic Acid 0.4 Mg Tablet PO 0.4 mg DAILY KOFI Administration Furosemide 20 mg 06/01/24 09:00 06/08/24 08:22 Furosemide 20 Mg Tablet PO 20 mg DAILY KOFI Administration Insulin Human Regular 1 each 06/01/24 09:49 Home Medication Pain Pump (Hydromorphone 4.493mg/24 Hours) XX PRN PRN Pain Lidocaine 1 patch 06/02/24 10:10 06/08/24 08:28 Lidocaine 5% Patch TRANSDERM 1 patch DAILY KOFI Administration Lisinopril 10 mg 06/01/24 09:00 06/08/24 08:21 Lisinopril 10 Mg Tablet PO 10 mg DAILY KOFI Administration Magnesium Oxide 400 mg 06/01/24 09:00 06/08/24 08:20 Magnesium Oxide 400 Mg Tablet PO 400 mg DAILY KOFI Administration Melatonin 5 mg 05/31/24 21:00 06/07/24 20:17 Melatonin 5 Mg Tablet PO 5 mg HS KOFI Administration Methocarbamol 750 mg 06/04/24 13:00 06/08/24 08:20 Methocarbamol 750 Mg Tablet PO 750 mg QID KOFI Administration Multivitamins/Calcium 1 tablet 06/01/24 09:00 06/08/24 08:19 Therapeutic Multivitamins/Minerals Tab (*Bkc) PO 1 tablet QAM KOFI Administration Non-Formulary Medication 500 mg 06/01/24 09:00 Cranberry Extract PO 07/01/24 08:59 DAILY KOFI Non-Formulary Medication 1 applic 06/01/24 21:00 06/07/24 20:24 Tobramycin-Dexamethasone [Tobradex] RIGHT EYE 07/01/24 08:59 Not Given HS KOFI Non-Formulary Medication 500 mg 06/01/24 21:00 06/08/24 08:25 D-Mannose PO 06/30/24 17:44 500 mg Q12HR KOFI Administration Non-Formulary Medication 200 mg 06/02/24 09:00 06/08/24 08:24 Coq10 (Ubiquinol) PO 07/02/24 08:59 200 mg DAILY KOFI Administration Non-Formulary Medication 1 cap 06/03/24 09:00 06/08/24 08:25 [place] [employer]-3 Plus Vitamin D3 PO 07/03/24 08:59 1 cap DAILY KOFI Administration Ondansetron HCl 4 mg 05/31/24 17:41 Ondansetron Hcl Odt 4 Mg Tablet PO Q6H PRN Nausea And Vomiting Oxybutynin Chloride 10 mg 06/01/24 09:00 06/08/24 08:17 Oxybutynin Chloride Xl 5 Mg Tab.Er.24 PO 10 mg DAILY KOFI Administration Oxycodone/Acetaminophen 1 tablet 06/02/24 09:47 06/07/24 19:40 Oxycodone/Acetaminophen (*Crx) 5-325 Mg Tablet PO 1 tablet Q4H PRN Administration Pain Rated 7-10 Pantoprazole Sodium 20 mg 06/01/24 09:00 06/08/24 08:22 Pantoprazole Sod Sesquihydrate 20 Mg Tab PO 20 mg QAM KOFI Administration Polyethylene Glycol 17 gm 06/01/24 09:00 06/08/24 08:26 Polyethylene Glycol 3350 17 Gm Powd.Pack PO 17 gm QAM KOFI Administration Pregabalin 150 mg 05/31/24 21:00 06/07/24 20:15 Pregabalin (*Crx) 50 Mg Capsule PO 150 mg HS KOFI Administration Quetiapine Fumarate 50 mg 06/01/24 09:00 06/08/24 08:18 Quetiapine Fumarate 25 Mg Tablet PO 50 mg Q12HR KOFI Administration Senna/Docusate Sodium 1 tab 05/31/24 21:00 06/07/24 20:17 Senna/Docusate Sodium Tablet PO 1 tab HS KOFI Administration Tamsulosin HCl 0.4 mg 06/01/24 09:00 06/08/24 08:20 Tamsulosin Hcl 0.4 Mg Capsule PO 0.4 mg QAM KOFI Administration Timolol Maleate 1 drop 06/01/24 09:00 06/08/24 08:31 Timolol Maleate 0.5% Op Soln 5 Ml Bottle EACH EYE 1 drop Q12HR KOFI Administration Trimethoprim/Sulfamethoxazole 1 tab 06/06/24 21:00 06/08/24 08:22 Sulfamethoxazole/Trimethoprim 800/160 Mg Ds Tablet PO 1 tab Q12HR KOFI Administration Vitamin B Complex 1 cap 06/01/24 09:00 06/08/24 08:23 Vitamin B Complex Capsule PO 1 cap QAM KOFI Administration Quality VTE Prophylaxis VTE prophylaxis: pharmacologic ordered
[2024-06-08 09:17] LABS: Basophils Absolute Auto 0.02 K/mm3 (0.00-0.10); Basophils Percent Auto 0.2 % (0.0-1.0); Eosinophils Absolute Auto 0.26 K/mm3 (0.02-0.50); Eosinophils Percent Auto 3.2 % (1.0-6.0); Hematocrit 36.2 % (37.0-46.0); Hemoglobin 11.6 g/dL (12.4-15.3); Immature Granulocyte Absolute 0.06 K/mm3 (0.00-0.00); Immature Granulocyte Percent A 0.7 % (0.0-0.0); Lymphocytes Absolute Auto 0.96 K/mm3 (1.10-4.50); Lymphocytes Percent Auto 11.8 % (18.0-42.0); Mean Platelet Volume 8.7 fl (8.7-11.0); Monocytes Absolute Auto 0.74 K/mm3 (0.10-0.90); Monocytes Percent Auto 9.1 % (2.0-11.0); Neutrophils Absolute Auto 6.09 K/mm3 (1.70-7.20); Platelet Count Result 303 K/mm3 (150-420); Red Blood Count 4.47 M/mm3 (4.70-6.10); Red Cell Distribution Width 15.4 % (11.6-14.4); White Blood Count 8.1 K/mm3 (4.8-10.8)
[2024-06-08 09:32] LABS: Alanine Aminotransferase 22 U/L (16-63); Albumin Level 2.3 g/dL (3.4-5.0); Alkaline Phosphatase 106 U/L (46-116); Anion Gap 9 mmol/L (4-12); Aspartate Amino Transferase 30 U/L (15-37); Bilirubin,Total 0.6 mg/dL (0.00-1.00); Blood Urea Nitrogen 20 mg/dL (7-18); Calcium 9.3 mg/dL (8.5-10.1); Carbon Dioxide 29 mmol/L (21-32); Chloride 97 mmol/L (98-108); Estimated CRCL calculation 71 ml/min; Estimated Glomerular Filt Rate > 60; Glucose 130 mg/dL (70-99); Magnesium 1.8 mg/dL (1.8-2.4); Osmolality Calculated 284 mOsm/kg (285-295); Potassium 3.8 mmol/L (3.5-5.1); Sodium 135 mmol/L (136-145); Total Protein 7.2 g/dL (6.4-8.2)
[2024-06-08 16:00] VITALS: BP 130/70; PULSE 74; RESP 74; TEMP 36.1; O2SAT 95
--- NOTE | 2024-06-08 18:50 | PC.NURSE ---
here worried that not eating and no one assisting him has to leave at meal time. dietary reports that brought fish in at lunch and still wanted his tray left. c/o at change of shift that he still has lunch tray and did not eat anything. no one helping him. in recliner sleeping and has his rails down. urine in singh bag has red brown appearance and singh tubing is thicker brownish white. left as dinner is served. wants staff to feed him. attempting to feed patient and she keeps calling his cell phone. patient tells her he is eating and staff assisting. c/o she misses him and the house is to empty. very very stiff. hard to roll in bed. requires max of 2 assist. did eat 50% supper.
[2024-06-08] MEDS: oxyCODONE/ACETAMINOPHEN (*CRX) 5-325 MG TABLET 1 TABLET PO (20:03)
[2024-06-08] MEDS: MELATONIN 5 MG TABLET PO (20:04)
[2024-06-08] MEDS: PREGABALIN (*CRX) 50 MG CAPSULE 150 MG PO (20:04)
[2024-06-08] MEDS: ATORVASTATIN 40 MG TABLET PO (20:04)
[2024-06-08] MEDS: SENNA/DOCUSATE SODIUM TABLET 1 TAB PO (20:04)
[2024-06-08] MEDS: ALPRAZolam (*CRX) 0.25 MG TABLET PO (20:04)
[2024-06-08] MEDS: ASPIRIN 81 MG ENTERIC TABLET PO (20:04)
[2024-06-08] MEDS: TOBRAMYCIN RIGHT EYE (20:05)
[2024-06-08] MEDS: DEXAMETHASONE RIGHT EYE (20:05)
[2024-06-08 23:12] VITALS: O2SAT 87
[2024-06-09] VITALS: BP 149/101; PULSE 85; RESP 19; TEMP 36.6; O2SAT 90
[2024-06-09 05:30] VITALS: O2SAT 92
[2024-06-09 08:00] VITALS: BP 109/67; PULSE 68; RESP 12; RESP 14; TEMP 36.3; O2SAT 93; O2SAT 94
--- NOTE | 2024-06-09 08:57 | P.PNIM_ITS ---
Progress Note: A&P Assessment and Plan (1) Gait abnormality: Code(s): R26.9 - Unspecified abnormalities of gait and mobility Status: Acute Assessment and Plan: * secondary to deconditioned state worsening Parkinson's * Discussed with family about his progress with therapy and that likely he will need placement considering he is max assist right now. * Continue PT and OT * Care conference scheduled for June 14 (2) Physical deconditioning: Code(s): R53.81 - Other malaise Status: Acute Assessment and Plan: * SEE ABOVE (3) Parkinson's disease: Code(s): G20.A1 - Parkinson's disease without dyskinesia, without mention of fluctuations Status: Acute Assessment and Plan: * guarded prognosis do to severe deconditioning * Continue Sinemet 25/100, 3 tablets 4 times a day * Continue PT/OT (4) CAD (coronary artery disease): Onset Date: ~03/2020 Qualifiers: Associated angina: with other forms of angina Coronary Disease- Associated Artery/Lesion type: resighini artery [place] vs. transplanted heart: resighini heart Qualified Code(s): I25.118 - Atherosclerotic heart disease of resighini coronary artery with other forms of angina pectoris Code(s): I25.10 - Atherosclerotic heart disease of resighini coronary artery without angina pectoris Status: Resolved Assessment and Plan: * Previous SD with stent * continue eliquis, ASA * allergy to betablockers (5) Chronic back pain greater than 3 months duration: Onset Date: Unknown Code(s): M54.9 - Dorsalgia, unspecified; G89.29 - Other chronic pain Status: Chronic Assessment and Plan: * Chronic secondary to spinal stenosis * Pain pump with Dilaudid which he follows with Dr. Oswald outpatient. He is due for refill on the however trying to make arrangements for them to come here to fill. * Continue [place] (6) Spinal stenosis: Qualifiers: Neurogenic claudication status: unspecified Spinal region: lumbar Qualified Code(s): M48.061 - Spinal stenosis, lumbar region without neurogenic claudication Code(s): M48.00 - Spinal stenosis, site unspecified Status: Chronic Assessment and Plan: * See Above (7) Urinary retention: Code(s): R33.9 - Retention of urine, unspecified Status: Acute Assessment and Plan: * HX of neurogenic bladder * had retention at [facility] Singh catheter was placed * Continue Flomax and oxybutynin * continue Singh catheter for now due to deconditioning, will likely need outpatient neurology (8) Restrictive lung disease: Code(s): J98.4 - Other disorders of lung Status: Acute Assessment and Plan: * Chest x-rays dating back to 01/19/2013 shows small lung volumes there appeared to be an acute worsening between 03/18/2021 and 10/08/2021 with worsening elevation of the bilateral hemidiaphragms right greater than left. PFTs with severe restrictive abnormality on 05/03/2024 with no evidence of interstitial lung disease on his recent CT scans. * Was seen by Pulmonology at [place] * this is expected with Parkinson's * was weaned to RA during the day and 2 L NC at night New Orders per pulmonology: * continueTrelegy inhaler 100 - 62.5-25 at 1 puff q.day * continue Rescue albuterol 2 puffs q.4 hours p.r.n. shortness of breath or wheezing * Oxygen at rest and with ambulation per facilities protocol. Currently is on room air at rest with saturations 94%. * Oxygen 2 L when naps or sleeps as needed * currently on 3L NC, wean for saturation greater than 92%. He does have shallow breathing with mild use of accessory muscles. Encourage IS 10x/hr while awake. Continue PEP therapy * CXR today chronic high diaphragm, low lung volumes, with bibasilar mild atelectasis * BNP 200 * ? aspiration with food and fluid * Bedside swallow study ordered * NPO at this time * Start IV fluids in the interim (9) Pulmonary emboli: Code(s): I26.99 - Other pulmonary embolism without acute cor pulmonale Status: Resolved Assessment and Plan: * continue Eliquis (10) Acute UTI: Code(s): N39.0 - Urinary tract infection, site not specified Status: Inactive Assessment and Plan: * UA was sent on 06/06/2024 and showed slightly cloudy urine, 2+ urine blood, positive nitrate, 1+ leukocyte, 21-50 urine RBC, 4-6 urine WBC, 2+ bacteria * urine culture showing E coli on final read and was pansensitive * continue Bactrim (11) ROSALINE (acute kidney injury): Code(s): N17.9 - Acute kidney failure, unspecified Status: Acute Assessment and Plan: * Creatinine jumped up to 2.07 today from 0.9 * Urine dark chema/brown in color * CK slightly elevated at 404 likely due to dehydration * Start IVF for now. (12) Altered mental status: Code(s): R41.82 - Altered mental status, unspecified Status: Acute Assessment and Plan: * wakes to voice but falls back to sleep, very fatigued looking * Hold [place] * Stop Methocarbamol * continue Neuro checks. Time Spent With Patient Time with patient: Greater than 35 minutes Subjective Date/time seen: 06/09/24 08:57 Interval history: Interval history: This is a 74-year-old male who presented to [facility] for for rehab on 06/01/2024 for generalized weakness, possible TIA versus partial seizure, severe emphysema. Patient has a significant past medical history of Parkinson's And TBI. Subjective: Patient requiring 3L NC today due to hypoxia. He is very weak and fatigued in appearance. Singh catheter in place draining dark chema/brown urine. Family at bedside. Code status discussed and for now they wish to continue with full code status. Discussed with and family that he has not progressed much with therapy since he has been there and that his chronic condition of Parkinson's is likely the cause of his generalized deconditioning and likely will require intermediate placement. I also discussed with them that if he continues to decline, that he may need to have his swallowing re-evaluated. If he does not pass then a G tube for tube feeding would be the safest option. Family is going to discuss the dynamics of the code status including G-tube if necessary in the near future. Labs and cultures reviewed. Review of Systems Review of Systems: All systems reviewed & are unremarkable except as noted in HPI and below Exam Narrative: General: Very weak and fatigued appearance, deconditioned Head: atraumatic, no encephalopathy Eyes: PERRLA, sclera clear ENT: moist mucous membranes, nasal passages clear Neck: supple, no JVD, no adenopathy, trachea midline Cardiac: Normal S1 and S2. No murmur, gallops or friction rubs, peripheral pulses intact. Respiratory: Lungs harsh bilaterally. Coughing with liquids. Gastrointestinal: soft, non-distended, non-tender, normoactive bowel sounds. : singh catheter in place draining dark chema/brown urine, decreased urine output over last 24 hours Extremities: moves all extremities well, mild pitting edema in left leg greater than right Skin: groin excoriated, red-fungal Neuro: Alert to voice Objective Data Vital Signs Vital Signs: Vital Signs - 24 hr 06/08/24 16:00 06/09/24 00:00 06/08/24 23:12 Temperature 97 F L 97.8 F Pulse Rate 74 85 Respiratory Rate 74 H 19 Blood Pressure 130/70 149/101 H Pulse Oximetry 95 90 87 L Oxygen Delivery Room Air Nasal Cannula Room Air Oxygen Flow Rate 2 Intake/Output Intake/Output: Intake & Output 06/06/24 06/07/24 06/08/24 06/09/24 23:59 23:59 23:59 23:59 Intake Total 233 2640 800 520 Output Total 1974 1999 850 50 Balance 362 640 -50 470 Meds/Results Medications: Active Medications Generic Name Dose Route Start Last Admin Trade Name Freq PRN Reason Stop Dose Admin Acetaminophen 650 mg 05/31/24 17:41 06/07/24 08:55 Acetaminophen 325 Mg Tablet PO 650 mg Q4H PRN Administration Mild Pain (1-3) or Fever Albuterol/Ipratropium 3 ml 06/05/24 11:26 06/06/24 10:50 Ipratropium 0.5 Mg/Albuterol Sulfate 2.5 Mg Ampul.Neb 3 Ml INHALATION 3 ml Q6HRT PRN Administration sob Alprazolam 0.25 mg 05/31/24 17:43 06/08/24 20:04 Alprazolam (*Crx) 0.25 Mg Tablet PO 0.25 mg TID PRN Administration Anxiety Apixaban 5 mg 06/01/24 09:00 06/08/24 20:04 Apixaban 2.5 Mg Tablet BY MOUTH 5 mg Q12HR KOFI Administration Ascorbic Acid 1,000 mg 06/01/24 09:00 06/08/24 08:19 Ascorbic Acid 500 Mg Tablet PO 1,000 mg DAILY KOFI Administration Aspirin 81 mg 05/31/24 21:00 06/08/24 20:04 Aspirin 81 Mg Enteric Tablet PO 81 mg HS KOFI Administration Atorvastatin Calcium 40 mg 05/31/24 21:00 06/08/24 20:04 Atorvastatin 40 Mg Tablet PO 40 mg HS KOFI Administration Brimonidine Tartrate 1 drop 06/01/24 09:00 06/08/24 20:05 Brimonidine Tartrate 0.2% Op Soln 5 Ml Btl EACH EYE 1 drop Q12HR KOFI Administration Carbidopa/Levodopa 3 tablet 05/31/24 20:00 06/08/24 20:04 Carbidopa/Levodopa 25/100 Mg Tablet PO 3 tablet 0800,1200,1600,2000 KOFI Administration Cyclobenzaprine HCl 10 mg 06/01/24 15:16 06/07/24 20:18 Cyclobenzaprine Hcl 10 Mg Tablet PO 10 mg Q8H PRN Administration Muscle Spasm Diclofenac Sodium 1 applic 05/31/24 21:00 06/08/24 20:05 Diclofenac Sodium 1% 100 Gm Gel (*[facility]) TOPICAL 1 applic QID KOFI Administration Duloxetine HCl 60 mg 06/01/24 09:00 06/08/24 08:21 Duloxetine Hcl 30 Mg Capsule.Dr PO 60 mg QAM KOFI Administration Ferrous Sulfate 325 mg 06/01/24 09:00 06/08/24 08:21 Ferrous Sulfate [address] PO 325 mg DAILY KOFI Administration Fluticasone/Umeclidinium/Vilanterol 1 puff 06/01/24 09:00 06/08/24 08:30 Fluticasone/Umeclidin/Vilanter 100-62.5-25 Mcg Ellipta INHALATION 1 puff DAILY KOFI Administration Folic Acid 0.4 mg 06/02/24 09:00 06/08/24 08:20 Folic Acid 0.4 Mg Tablet PO 0.4 mg DAILY KOFI Administration Furosemide 20 mg 06/01/24 09:00 06/08/24 08:22 Furosemide 20 Mg Tablet PO 20 mg DAILY KOFI Administration Insulin Human Regular 1 each 06/01/24 09:49 Home Medication Pain Pump (Hydromorphone 4.493mg/24 Hours) XX PRN PRN Pain Lidocaine 1 patch 06/02/24 10:10 06/08/24 08:28 Lidocaine 5% Patch TRANSDERM 1 patch DAILY KOFI Administration Lisinopril 10 mg 06/01/24 09:00 06/08/24 08:21 Lisinopril 10 Mg Tablet PO 10 mg DAILY KOFI Administration Magnesium Oxide 400 mg 06/01/24 09:00 06/08/24 08:20 Magnesium Oxide 400 Mg Tablet PO 400 mg DAILY KOFI Administration Melatonin 5 mg 05/31/24 21:00 06/08/24 20:04 Melatonin 5 Mg Tablet PO 5 mg HS KOFI Administration Methocarbamol 750 mg 06/04/24 13:00 06/08/24 20:04 Methocarbamol 750 Mg Tablet PO 750 mg QID KOFI Administration Multivitamins/Calcium 1 tablet 06/01/24 09:00 06/08/24 08:19 Therapeutic Multivitamins/Minerals Tab (*Bkc) PO 1 tablet QAM KOFI Administration Non-Formulary Medication 500 mg 06/01/24 09:00 Cranberry Extract PO 07/01/24 08:59 DAILY KOFI Non-Formulary Medication 1 applic 06/01/24 21:00 06/08/24 20:05 Tobramycin-Dexamethasone [Tobradex] RIGHT EYE 07/01/24 08:59 1 applic HS KOFI Administration Non-Formulary Medication 500 mg 06/01/24 21:00 06/08/24 20:05 D-Mannose PO 06/30/24 17:44 500 mg Q12HR KOFI Administration Non-Formulary Medication 200 mg 06/02/24 09:00 06/08/24 08:24 Coq10 (Ubiquinol) PO 07/02/24 08:59 200 mg DAILY KOFI Administration Non-Formulary Medication 1 cap 06/03/24 09:00 06/08/24 08:25 [place]-3 Plus Vitamin D3 PO 07/03/24 08:59 1 cap DAILY KOFI Administration Ondansetron HCl 4 mg 05/31/24 17:41 Ondansetron Hcl Odt 4 Mg Tablet PO Q6H PRN Nausea And Vomiting Oxybutynin Chloride 10 mg 06/01/24 09:00 06/08/24 08:17 Oxybutynin Chloride Xl 5 Mg Tab.Er.24 PO 10 mg DAILY KOFI Administration Oxycodone/Acetaminophen 1 tablet 06/02/24 09:47 06/08/24 20:03 Oxycodone/Acetaminophen (*Crx) 5-325 Mg Tablet PO 1 tablet Q4H PRN Administration Pain Rated 7-10 Pantoprazole Sodium 20 mg 06/01/24 09:00 06/08/24 08:22 Pantoprazole Sod Sesquihydrate 20 Mg Tab PO 20 mg QAM KOFI Administration Polyethylene Glycol 17 gm 06/01/24 09:00 06/08/24 08:26 Polyethylene Glycol 3350 17 Gm Powd.Pack PO 17 gm QAM KOFI Administration Pregabalin 150 mg 05/31/24 21:00 06/08/24 20:04 Pregabalin (*Crx) 50 Mg Capsule PO 150 mg HS KOFI Administration Quetiapine Fumarate 50 mg 06/01/24 09:00 06/08/24 20:04 Quetiapine Fumarate 25 Mg Tablet PO 50 mg Q12HR KOFI Administration Senna/Docusate Sodium 1 tab 05/31/24 21:00 06/08/24 20:04 Senna/Docusate Sodium Tablet PO 1 tab HS KOFI Administration Tamsulosin HCl 0.4 mg 06/01/24 09:00 06/08/24 08:20 Tamsulosin Hcl 0.4 Mg Capsule PO 0.4 mg QAM KOFI Administration Timolol Maleate 1 drop 06/01/24 09:00 06/08/24 20:05 Timolol Maleate 0.5% Op Soln 5 Ml Bottle EACH EYE 1 drop Q12HR KOFI Administration Trimethoprim/Sulfamethoxazole 1 tab 06/06/24 21:00 06/08/24 20:04 Sulfamethoxazole/Trimethoprim 800/160 Mg Ds Tablet PO 1 tab Q12HR KOFI Administration Vitamin B Complex 1 cap 06/01/24 09:00 06/08/24 08:23 Vitamin B Complex Capsule PO 1 cap QAM KOFI Administration Labs Labs: Laboratory Results - last 24 hr 06/08/24 06/08/24 09:04 09:05 WBC 8.1 RBC 4.47 L Hgb 11.6 L Hct 36.2 L MCV 81.0 MCH 26.0 L MCHC 32.0 RDW 15.4 H Plt Count 303 MPV 8.7 Immature Gran % (Auto) 0.7 H Neut % (Auto) 75.0 H Lymph % (Auto) 11.8 L [place] % (Auto) 9.1 Eos % (Auto) 3.2 Baso % (Auto) 0.2 Lymph # (Auto) 0.96 L [place] # (Auto) 0.74 Eos # (Auto) 0.26 Baso # (Auto) 0.02 Abs Immat Gran (auto) 0.06 H Absolute Neuts (auto) 6.09 Absolute Nucleated RBC 0.00 Nucleated RBC % 0.0 Sodium 135 L Potassium 3.8 Chloride 97 L Carbon Dioxide 29 Anion Gap 9 BUN 20 H Creatinine 0.90 Estim Creat Clear Calc 71 Estimated GFR > 60 Glucose 130 H Calculated Osmolality 284 L Calcium 9.3 Magnesium 1.8 Total Bilirubin 0.6 AST 30 ALT 22 Alkaline Phosphatase 106 Total Protein 7.2 Albumin 2.3 L Quality VTE Prophylaxis VTE prophylaxis: pharmacologic ordered
[2024-06-09 09:41] LABS: Basophils Absolute Auto 0.03 K/mm3 (0.00-0.10); Basophils Percent Auto 0.4 % (0.0-1.0); Eosinophils Absolute Auto 0.21 K/mm3 (0.02-0.50); Eosinophils Percent Auto 2.8 % (1.0-6.0); Hematocrit 34.2 % (37.0-46.0); Hemoglobin 11.2 g/dL (12.4-15.3); Immature Granulocyte Absolute 0.04 K/mm3 (0.00-0.00); Immature Granulocyte Percent A 0.5 % (0.0-0.0); Lymphocytes Absolute Auto 1.25 K/mm3 (1.10-4.50); Lymphocytes Percent Auto 16.8 % (18.0-42.0); Mean Corpuscular HGB Conc 32.7 g/dL (32-36); Mean Corpuscular Hemoglobin 26.4 pg (27.0-31.0); Mean Corpuscular Volume 80.7 fL (78.0-102.0); Mean Platelet Volume 8.4 fl (8.7-11.0); Monocytes Percent Auto 9.4 % (2.0-11.0); Neutrophils Absolute Auto 5.19 K/mm3 (1.70-7.20); Neutrophils Percent Auto 70.1 % (50.0-70.0); Platelet Count Result 296 K/mm3 (150-420); Red Blood Count 4.24 M/mm3 (4.70-6.10); Red Cell Distribution Width 15.5 % (11.6-14.4); White Blood Count 7.4 K/mm3 (4.8-10.8)
[2024-06-09 10:00] VITALS: BP 110/70; PULSE 70; RESP 14; TEMP 36.3; O2SAT 94
[2024-06-09] MEDS: TIMOLOL MALEATE 0.5% OP SOLN 5 ML BOTTLE 1 DROP EACH EYE (10:00)
[2024-06-09 10:05] LABS: Alanine Aminotransferase 7 U/L (16-63); Albumin Level 2.4 g/dL (3.4-5.0); Alkaline Phosphatase 101 U/L (46-116); Anion Gap 9 mmol/L (4-12); Aspartate Amino Transferase 26 U/L (15-37); Bilirubin,Total 0.5 mg/dL (0.00-1.00); Blood Urea Nitrogen 33 mg/dL (7-18); Calcium 9.3 mg/dL (8.5-10.1); Carbon Dioxide 28 mmol/L (21-32); Chloride 96 mmol/L (98-108); Estimated CRCL calculation 32 ml/min; Estimated Glomerular Filt Rate 31; Glucose 106 mg/dL (70-99); NT Pro B Type Natriuretic Pept 200 pg/mL (0-450); Osmolality Calculated 283 mOsm/kg (285-295); Potassium 4.5 mmol/L (3.5-5.1); Sodium 133 mmol/L (136-145); Total Protein 7.2 g/dL (6.4-8.2)
[2024-06-09] MEDS: IPRATROPIUM 0.5 MG/ALBUTEROL SULFATE 2.5 MG AMPUL.NEB 3 ML INHALATION ×2 (10:07→17:49)
[2024-06-09] MEDS: QUEtiapine FUMARATE 25 MG TABLET 50 MG PO (10:28)
[2024-06-09] MEDS: oxyBUTYnin CHLORIDE XL 5 MG TAB.ER.24 10 MG PO (10:28)
[2024-06-09] MEDS: FOLIC ACID 0.4 MG TABLET PO (10:29)
[2024-06-09] MEDS: FERROUS SULFATE 325 MG TABLET DR PO (10:29)
[2024-06-09] MEDS: THERAPEUTIC MULTIVITAMINS/MINERALS TAB (*BKC) 1 TABLET PO (10:29)
[2024-06-09] MEDS: TAMSULOSIN HCL 0.4 MG CAPSULE PO (10:29)
[2024-06-09] MEDS: VITAMIN B COMPLEX CAPSULE 1 CAP PO (10:30)
[2024-06-09] MEDS: ASCORBIC ACID 500 MG TABLET 1000 MG PO (10:30)
[2024-06-09] MEDS: DULoxetine HCL 30 MG CAPSULE.DR 60 MG PO (10:30)
[2024-06-09] MEDS: APIXABAN 2.5 MG TABLET 5 MG BY MOUTH (10:31)
[2024-06-09] MEDS: CARBIDOPA/LEVODOPA 25/100 MG TABLET 3 TABLET PO ×4 (10:31→20:15)
[2024-06-09] MEDS: MAGNESIUM OXIDE 400 MG TABLET PO (10:32)
[2024-06-09] MEDS: PANTOPRAZOLE SOD SESQUIHYDRATE 20 MG TAB PO (10:32)
[2024-06-09] MEDS: [UNRECOGNIZED DRUG - OTHER] PO (10:33)
[2024-06-09] MEDS: [UNRECOGNIZED DRUG - OTHER] PO (10:33)
[2024-06-09] MEDS: COQ10 200 MG PO (10:33)
[2024-06-09] MEDS: methocarbamoL 750 MG TABLET PO ×2 (10:33→12:25)
[2024-06-09] MEDS: VITAMIN D3 PO (10:33)
[2024-06-09] MEDS: OMEGA PO (10:33)
[2024-06-09] MEDS: BRIMONIDINE TARTRATE 0.2% OP SOLN 5 ML BTL 1 DROP EACH EYE (10:34)
[2024-06-09] MEDS: [UNRECOGNIZED DRUG - OTHER] PO (10:34)
[2024-06-09] MEDS: D MANNOSE 500 MG PO (10:34)
[2024-06-09] MEDS: DICLOFENAC SODIUM 1% 100 GM GEL (*BKC) 1 APPLIC TOPICAL ×4 (10:35→21:59)
[2024-06-09] MEDS: LIDOCAINE 5% PATCH 1 PATCH TRANSDERM (10:36)
[2024-06-09] MEDS: FLUTICASONE/UMECLIDIN/VILANTER 100-62.5-25 MCG ELLIPTA 1 PUFF INHALATION (10:37)
[2024-06-09 12:11] LABS: Creatine Kinase 404 U/L (39-308)
[2024-06-09] MEDS: FUROSEMIDE INJ 40 MG/4 ML VIAL IV PUSH (12:23)
[2024-06-09 13:11] LABS: Base Excess ABG -1.7 mmol/L (0-2); HCO3 ABG 24.3 mmol/L (23-29); Oxygen Content ABG 15.3 %vol (16.0-22.0); Oxygen Saturation ABG 89.7 % (95-97); Oxyhemoglobin 89.1 % (94-100); PO2 ABG 67.1 mmHg (75-85); pH ABG 7.34 (7.35-7.45)
[2024-06-09 13:14] LABS: Device NASAL CANNULA; Modified Allen's Test Pass; Site Drawn LEFT RADIAL
[2024-06-09] MEDS: DEXTROSE 5%/0.9% SOD CHL 1,000 ML 100 ML IV CONT (14:22)
[2024-06-09 16:00] VITALS: BP 134/68; PULSE 72; RESP 19; TEMP 36.2; O2SAT 92
[2024-06-09 17:51] VITALS: PULSE 72; O2SAT 92
--- NOTE | 2024-06-09 18:05 | PC.NURSE ---
After being fed by family patient was noted to have wheezing throughout lung [place]. Duoneb treatmanet given.
--- NOTE | 2024-06-09 18:13 | PC.NURSE ---
Post nebulizer treatment patient's lungs clear resp normal.
--- NOTE | 2024-06-09 18:42 | PC.NURSE ---
Ara, INSIDE ACCOUNT EXECUTIVE/Hospitalist, notified that family has decided to make patient comfort care.
[2024-06-09] MEDS: SCOPOLAMINE 1 MG PATCH 1 PATCH TRANSDERM (18:59)
[2024-06-09] MEDS: TOLNAFTATE 1% POWDER 45 GM BTL 1 APPLIC TOPICAL (21:59)
[2024-06-09] MEDS: PREGABALIN (*CRX) 50 MG CAPSULE 150 MG PO (21:59)
[2024-06-09] MEDS: MORPHINE SULFATE (*CRX) 2 MG/ML INJ IV PUSH (22:15)
[2024-06-10] VITALS: BP 119/63; PULSE 74; RESP 13; TEMP 36.6; O2SAT 90
[2024-06-10 05:30] VITALS: O2SAT 95
[2024-06-10] MEDS: MORPHINE SULFATE (*CRX) 2 MG/ML INJ IV PUSH ×2 (06:30→20:35)
[2024-06-10 08:00] VITALS: BP 143/75; PULSE 97; RESP 14; RESP 16; TEMP 37; O2SAT 94
[2024-06-10] MEDS: polyethylene glycoL 3350 17 GM POWD.PACK PO (08:40)
[2024-06-10] MEDS: CARBIDOPA/LEVODOPA 25/100 MG TABLET 3 TABLET PO ×4 (08:40→20:05)
[2024-06-10] MEDS: LIDOCAINE 5% PATCH 1 PATCH TRANSDERM (08:40)
[2024-06-10] MEDS: DICLOFENAC SODIUM 1% 100 GM GEL (*BKC) 1 APPLIC TOPICAL ×4 (09:15→20:04)
--- NOTE | 2024-06-10 11:02 | P.PNIM_ITS ---
Progress Note: A&P Assessment and Plan (1) Gait abnormality: Code(s): R26.9 - Unspecified abnormalities of gait and mobility Status: Acute Assessment and Plan: * secondary to deconditioned state worsening Parkinson's * Discussed with family about his progress with therapy and that likely he will need placement considering he is max assist right now. * PT and OT discontinued as family requested comfort measures only last night. * Plan to discuss hospice/palliative care with Vit[facility] at 4 pm today * Care coordination following * Care conference scheduled for June 14 (2) Physical deconditioning: Code(s): R53.81 - Other malaise Status: Acute Assessment and Plan: * SEE ABOVE (3) Parkinson's disease: Code(s): G20.A1 - Parkinson's disease without dyskinesia, without mention of fluctuations Status: Acute Assessment and Plan: * guarded prognosis do to severe deconditioning * Continue Sinemet 25/100, 3 tablets 4 times a day * PT and OT discontinued for comfort measures only (4) CAD (coronary artery disease): Onset Date: ~03/2020 Qualifiers: Associated angina: with other forms of angina Coronary Disease- Associated Artery/Lesion type: [place] artery [place] vs. transplanted heart: [place] heart Qualified Code(s): I25.118 - Atherosclerotic heart disease of [place] coronary artery with other forms of angina pectoris Code(s): I25.10 - Atherosclerotic heart disease of [place] coronary artery without angina pectoris Status: Resolved Assessment and Plan: * Previous WA with stent * medications stopped as family has made him comfort measures only last night. (5) Chronic back pain greater than 3 months duration: Onset Date: Unknown Code(s): M54.9 - Dorsalgia, unspecified; G89.29 - Other chronic pain Status: Chronic Assessment and Plan: * Chronic secondary to spinal stenosis * Pain pump with Dilaudid which he follows with Dr. Oswald outpatient. He is due for refill on the however trying to make arrangements for them to come here to fill. * Gideon discontinued (6) Spinal stenosis: Qualifiers: Neurogenic claudication status: unspecified Spinal region: lumbar Qualified Code(s): M48.061 - Spinal stenosis, lumbar region without neurogenic claudication Code(s): M48.00 - Spinal stenosis, site unspecified Status: Chronic Assessment and Plan: * See Above (7) Urinary retention: Code(s): R33.9 - Retention of urine, unspecified Status: Acute Assessment and Plan: * HX of neurogenic bladder * had retention at [facility] Singh catheter was placed * continue singh catheter for comfort (8) Restrictive lung disease: Code(s): J98.4 - Other disorders of lung Status: Acute Assessment and Plan: * Chest x-rays dating back to 01/19/2013 shows small lung volumes there appeared to be an acute worsening between 03/18/2021 and 10/08/2021 with worsening elevation of the bilateral hemidiaphragms right greater than left. PFTs with severe restrictive abnormality on 05/03/2024 with no evidence of interstitial lung disease on his recent CT scans. * Was seen by Pulmonology at [place] * this is expected with Parkinson's * was weaned to RA during the day and 2 L NC at night New Orders per pulmonology: * continueTrelegy inhaler 100 - 62.5-25 at 1 puff q.day * continue Rescue albuterol 2 puffs q.4 hours p.r.n. shortness of breath or wheezing * Oxygen at rest and with ambulation per facilities protocol. Currently is on room air at rest with saturations 94%. * Oxygen 2 L when naps or sleeps as needed * currently on 3L NC, wean for saturation greater than 92%. He does have shallow breathing with mild use of accessory muscles. Encourage IS 10x/hr while awake. Continue PEP therapy * CXR today chronic high diaphragm, low lung volumes, with bibasilar mild atelectasis * BNP 200 * Bedside swallow done yesterday with concerns for penetration. and family decided to make him comfort measures only * [place] thick liquids and pureed diet ordered per Speech therapy recommendation (9) Pulmonary emboli: Code(s): I26.99 - Other pulmonary embolism without acute cor pulmonale Status: Resolved Assessment and Plan: * medication stopped as family has made him comfort measures only (10) Acute UTI: Code(s): N39.0 - Urinary tract infection, site not specified Status: Inactive Assessment and Plan: * UA was sent on 06/06/2024 and showed slightly cloudy urine, 2+ urine blood, positive nitrate, 1+ leukocyte, 21-50 urine RBC, 4-6 urine WBC, 2+ bacteria * urine culture showing E coli on final read and was pansensitive * Medication discontinued as patient has been made comfort measures only per family request. (11) ROSALINE (acute kidney injury): Code(s): N17.9 - Acute kidney failure, unspecified Status: Acute Assessment and Plan: * Creatinine jumped up to 2.07 today from 0.9 * Urine dark chema/brown in color * CK slightly elevated at 404 likely due to dehydration * No further lab draws as patient is comfort measures only per family request. (12) Altered mental status: Code(s): R41.82 - Altered mental status, unspecified Status: Acute Assessment and Plan: * wakes to voice but falls back to sleep, very fatigued looking * Hold Gideon * Stop Methocarbamol * continue Neuro checks. Plan * More alert today * Plan for hospice talk today at 1600 Subjective Date/time seen: 06/10/24 11:02 Interval history: Interval history: This is a 74-year-old male who presented to [facility] for for rehab on 06/01/2024 for generalized weakness, possible TIA versus partial seizure, severe emphysema. Patient has a significant past medical history of Parkinson's And TBI. Subjective: Patient more alert today. He is still coughing with food and fluids from time to time. Urine output has picked up today. is at the bedside and plan is in place to meet with [facility] hospice today. I had another long discussion today about his current condition and about his advancing Parkinson's. made decision yesterday to place him on comfort measures only and orders were placed for that however with him being more alert today she is second guessing the decision and was unaware that if we do comfort/ hospice this would stop all PT/OT that he was getting. I reiterated to her that he has made little to no progress with PT and OT while here and he would likely need skilled nursing placement as he is still requiring max assist and would likely not improve considering his advancing Parkinson's. I also reiterated that we still have concerns that his weakness is causing him to aspirate silently as he did not pass bedside swallow and would need Barium swallow to confirm. and patient agreeable to talk with hospice/palliative today and we will discuss again tomorrow when case management is back. Review of Systems Review of Systems: All systems reviewed & are unremarkable except as noted in HPI and below Exam Narrative: General: Very weak and fatigued appearance, deconditioned Cardiac: Normal S1 and S2. No murmur, gallops or friction rubs, peripheral pulses intact. Respiratory: Lungs slightly course right greater than left. Nonproductive cough, esophageal rattle, Coughing with liquids. Currently on 2 L nasal cannula Gastrointestinal: soft, non-distended, non-tender, normoactive bowel sounds. : singh catheter in place draining dark chema/brown urine, output increased today Extremities: mild pitting edema in left leg greater than right Skin: groin excoriated, red-fungal Neuro: Alert and oriented x3 today. Objective Data Vital Signs Vital Signs: Vital Signs - 24 hr 06/09/24 16:00 06/09/24 17:51 06/10/24 00:00 Temperature 97.2 F L 97.9 F Pulse Rate 72 72 74 Respiratory Rate 19 13 Blood Pressure 134/68 119/63 Pulse Oximetry 92 92 90 Oxygen Delivery Nasal Cannula Room Air Oxygen Flow Rate 3 20 Intake/Output Intake/Output: Intake & Output 06/07/24 06/08/24 06/09/24 06/10/24 23:59 23:59 23:59 23:59 Intake Total 2640 800 1433.3 Output Total 1999 850 125 400 Balance 640 -50 1308.3 -400 Meds/Results Medications: Active Medications Generic Name Dose Route Start Last Admin Trade Name Freq PRN Reason Stop Dose Admin Acetaminophen 650 mg 05/31/24 17:41 06/07/24 08:55 Acetaminophen 325 Mg Tablet PO 650 mg Q4H PRN Administration Mild Pain (1-3) or Fever Albuterol/Ipratropium 3 ml 06/05/24 11:26 06/09/24 17:49 Ipratropium 0.5 Mg/Albuterol Sulfate 2.5 Mg Ampul.Neb 3 Ml INHALATION 3 ml Q6HRT PRN Administration sob Carbidopa/Levodopa 3 tablet 05/31/24 20:00 06/10/24 08:40 Carbidopa/Levodopa 25/100 Mg Tablet PO 3 tablet 0800,1200,1600,2000 KOFI Administration Diclofenac Sodium 1 applic 05/31/24 21:00 06/09/24 21:59 Diclofenac Sodium 1% 100 Gm Gel (*Bkc) TOPICAL 1 applic QID KOFI Administration Insulin Human Regular 1 each 06/01/24 09:49 Home Medication Pain Pump (Hydromorphone 4.493mg/24 Hours) XX PRN PRN Pain Lidocaine 1 patch 06/02/24 10:10 06/10/24 08:40 Lidocaine 5% Patch TRANSDERM 1 patch DAILY KOFI Administration Lorazepam 1 mg 06/09/24 18:41 Lorazepam Inj (*Crx) 2 Mg/Ml Vial IV PUSH Q2H PRN Anxiety Miscellaneous Information 1 each 06/10/24 00:01 06/10/24 00:27 Order Clarification XX 07/10/24 00:00 Not Given [facility] Morphine Sulfate 2 mg 06/09/24 18:39 06/10/24 06:30 Morphine Sulfate (*Crx) 2 Mg/Ml Inj IV PUSH 2 mg Q2H PRN Administration PAIN RATED 7-10 Multivitamins/Calcium 1 tablet 06/01/24 09:00 06/09/24 10:29 Therapeutic Multivitamins/Minerals Tab (*Bkc) PO 1 tablet QAM KOFI Administration Polyethylene Glycol 17 gm 06/01/24 09:00 06/10/24 08:40 Polyethylene Glycol 3350 17 Gm Powd.Pack PO 17 gm QAM KOFI Administration Pregabalin 150 mg 05/31/24 21:00 06/09/24 21:59 Pregabalin (*Crx) 50 Mg Capsule PO 150 mg HS KOFI Administration Scopolamine 1 patch 06/09/24 18:50 06/09/24 18:59 Scopolamine 1 Mg Patch TRANSDERM 1 patch Q72HR KOFI Administration Tolnaftate 1 applic 06/09/24 21:00 06/09/24 21:59 Tolnaftate 1% Powder 45 Gm Btl TOPICAL 1 applic Q12HR KOFI Administration Radiology Results: ITS Impressions Chest X-Ray 06/09/24 13:01 IMPRESSION: Chronic high diaphragm, low lung volumes, with bibasilar mild atelectasis Labs Labs: Laboratory Results - last 24 hr 06/09/24 06/09/24 09:32 13:05 Puncture Site Left radial ABG pH 7.34 L ABG pCO2 46.0 H ABG pO2 67.1 L ABG PO2/FiO2 Ratio Not Reportable ABG HCO3 24.3 ABG O2 Saturation 89.7 L ABG O2 Content 15.3 L ABG Base Excess -1.7 L A-a Gradient Not Reportable Oxyhemoglobin 89.1 L O2 Delivery Device Nasal cannula O2 Liters/Min 3.0 Total Creatine Kinase 404 H Quality VTE Prophylaxis VTE prophylaxis: mechanical ordered
[2024-06-10] MEDS: TOLNAFTATE 1% POWDER 45 GM BTL 1 APPLIC TOPICAL ×2 (12:29→20:17)
[2024-06-10] MEDS: IPRATROPIUM 0.5 MG/ALBUTEROL SULFATE 2.5 MG AMPUL.NEB 3 ML INHALATION (15:37)
[2024-06-10 16:00] VITALS: BP 130/70; PULSE 97; RESP 16; TEMP 36.3; O2SAT 95
[2024-06-10] MEDS: TOBRAMYCIN EACH EYE (20:05)
[2024-06-10] MEDS: [UNRECOGNIZED DRUG - OTHER] EACH EYE (20:05)
[2024-06-10] MEDS: DEXAMETHASONE EACH EYE (20:05)
[2024-06-10] MEDS: BRIMONIDINE TIMOLOL EACH EYE (20:05)
[2024-06-10] MEDS: TIMOLOL MALEATE 0.5% OP SOLN 5 ML BOTTLE 1 DROP EACH EYE (20:06)
[2024-06-10] MEDS: PREGABALIN (*CRX) 25 MG CAPSULE 50 MG PO (20:35)
[2024-06-10] MEDS: PREGABALIN (*CRX) 100 MG CAPSULE PO (20:35)
[2024-06-10] MEDS: LORazepam INJ (*CRX) 2 MG/ML VIAL 1 MG IV PUSH (23:25)
[2024-06-11] VITALS: BP 118/62; PULSE 62; RESP 18; TEMP 36.6; O2SAT 92
[2024-06-11] MEDS: MORPHINE SULFATE (*CRX) 2 MG/ML INJ IV PUSH ×4 (02:55→12:44)
[2024-06-11 08:00] VITALS: BP 133/52; PULSE 76; RESP 20; TEMP 35.9; O2SAT 93
[2024-06-11] MEDS: polyethylene glycoL 3350 17 GM POWD.PACK PO (08:11)
[2024-06-11] MEDS: THERAPEUTIC MULTIVITAMINS/MINERALS TAB (*BKC) 1 TABLET PO (08:11)
[2024-06-11] MEDS: CARBIDOPA/LEVODOPA 25/100 MG TABLET 3 TABLET PO (08:11)
[2024-06-11] MEDS: TOLNAFTATE 1% POWDER 45 GM BTL 1 APPLIC TOPICAL (08:12)
[2024-06-11] MEDS: TIMOLOL MALEATE 0.5% OP SOLN 5 ML BOTTLE 1 DROP EACH EYE (08:12)
[2024-06-11] MEDS: LIDOCAINE 5% PATCH 1 PATCH TRANSDERM (08:12)
[2024-06-11] MEDS: DICLOFENAC SODIUM 1% 100 GM GEL (*BKC) 1 APPLIC TOPICAL (08:13)
[2024-06-11] MEDS: BRIMONIDINE TARTRATE 0.2% OP SOLN 5 ML BTL 1 DROP EACH EYE (09:00)
--- NOTE | 2024-06-11 10:05 | PM.DS ---
DS: Admitting Diagnosis Discharge Date 06/11/24 Admitting Diagnosis Gait abnormality Parkinson's Disease physical deconditioning CAD Chronic back pain Spinal stenosis Chronic pain syndrome Restrictive lung disease PE DS: Discharge Diagnosis Discharge Diagnosis (1) Gait abnormality: Code(s): R26.9 - Unspecified abnormalities of gait and mobility Status: Acute (2) Physical deconditioning: Code(s): R53.81 - Other malaise Status: Acute (3) Parkinson's disease: Code(s): G20.A1 - Parkinson's disease without dyskinesia, without mention of fluctuations Status: Acute (4) CAD (coronary artery disease): Onset Date: ~03/2020 Qualifiers: Coronary Disease-Associated Artery/Lesion type: [place] artery [place] vs. transplanted heart: [place] heart Associated angina: with other forms of angina Qualified Code(s): I25.118 - Atherosclerotic heart disease of [place] coronary artery with other forms of angina pectoris Code(s): I25.10 - Atherosclerotic heart disease of [place] coronary artery without angina pectoris Status: Resolved (5) Chronic back pain greater than 3 months duration: Onset Date: Unknown Code(s): M54.9 - Dorsalgia, unspecified; G89.29 - Other chronic pain Status: Chronic (6) Spinal stenosis: Qualifiers: Spinal region: lumbar Neurogenic claudication status: unspecified Qualified Code(s): M48.061 - Spinal stenosis, lumbar region without neurogenic claudication Code(s): M48.00 - Spinal stenosis, site unspecified Status: Chronic (7) Urinary retention: Code(s): R33.9 - Retention of urine, unspecified Status: Acute (8) Restrictive lung disease: Code(s): J98.4 - Other disorders of lung Status: Acute (9) Pulmonary emboli: Code(s): I26.99 - Other pulmonary embolism without acute cor pulmonale Status: Resolved (10) Acute UTI: Code(s): N39.0 - Urinary tract infection, site not specified Status: Inactive (11) ROSALINE (acute kidney injury): Code(s): N17.9 - Acute kidney failure, unspecified Status: Acute (12) Altered mental status: Code(s): R41.82 - Altered mental status, unspecified Status: Acute DS: Summary Hospital Course Reason for hospitalization: Gait abnormality Parkinson's Disease physical deconditioning CAD Chronic back pain Spinal stenosis Chronic pain syndrome Restrictive lung disease PE Hospital Course: This is a 74-year-old male who presented to [facility] for for rehab on 06/01/2024 for generalized weakness, possible TIA versus partial seizure, severe emphysema. Patient has a significant past medical history of Parkinson's And TBI.Over the course of his stay he has been working with PT and OT and has had little to no progress and is still requiring max assistance. Over the weekend his urine output dropped off and he had a new oxygen requirement of 2-3 L. we went ahead and did a chest x-ray which shown chronic high diaphragm, low lung volumes with bibasilar mild atelectasis. He was not as alert over the weekend and there was concerns that he may be aspirating as he was coughing with food and fluid While I was in the room. I placed a speech therapy consult in for a bedside swallow evaluation and the speech therapist agreed that there may be some penetration of food and fluid into the right lung. We talk this over with the at the bedside about the possibility of him needing a G-tube for nutrition. She decided not to go that route and would rather make him more comfortable considering his chronic end-stage Parkinson's disease. I spoke with her for a while about this and what they can offer. I spoke to her about hospice at home versus hospice inpatient as he is a max assist. We got a hold of [facility] and they met with the family yesterday and sign paperwork for home hospice. The is going to get a caregiver to come into the home to assist with ADLs. Equipment was ordered yesterday and plan is for patient to go home today via ambulance. Patient is stable for discharge home at this time. Final diagnosis: End stage Parkinson's disease, muscular deconditioning Status at Discharge Cognitive/behavioral status at discharge: Alert and oriented x3 Functional status at discharge: bed bound Overall status at discharge: patient is not back to baseline (going home with hospice) Time Spent with Patient Time attestation: Total time spent providing and/or coordinating discharge services: Time spent: Greater than 30 minutes Exam Narrative: General: Very weak and fatigued appearance, deconditioned Cardiac: Normal S1 and S2. No murmur, gallops or friction rubs, peripheral pulses intact. Respiratory: Lungs slightly course right greater than left. Currently on 2 L nasal cannula Gastrointestinal: soft, non-distended, non-tender, normoactive bowel sounds. : singh catheter in place and draining Extremities: mild- moderate pitting edema in left leg greater than right, generalized tremors Skin: groin excoriated, red-fungal Neuro: Alert and oriented x3 today. DS: Data Data Completed and Pending Completed studies during hospitalization: Chest x-ray Pending studies at discharge: None Procedures/Treatments: None Discharge Plan Discharge Attending physician on discharge: Alphonso Cardenas Discharging Clinician: Eboni Christian Anticipated Discharge Date/Time: 06/11/24 09:58 Patient Disposition: Hospice - Home Activity: as tolerated Diet: as tolerated Discharge Instructions: Home with [facility] Patient Instructions: Lorazepam (By mouth), Morphine, Slow Release (By mouth), Pain Management in Older Adults (DC), Parkinson Disease (DC), Narcotic Safety (DC), Using Oxygen at Home (DC), Aspiration Pneumonia (DC) Patient Language: [place] Stand Alone Forms: General Discharge Information Discharge Medications: New lidocaine [Lidoderm] 5 % Adhesive Patch,Medicated 1 patch transdermal DAILY Qty: 30 0RF scopolamine base [Transderm-Scop] 1 mg over 3 days Patch 3 Day 1 patch transdermal Q72HR Qty: 4 0RF tolnaftate 1 % Powder 1 applic topical Q12HR Qty: 1 0RF Continued pregabalin [Lyrica] 150 mg Capsule 150 mg PO HS Hold Instructions: Patient Condition pantoprazole [Protonix] 20 mg tablet,delayed release (DR/EC) 40 mg PO QAM oxybutynin chloride 5 mg tablet extended release 24hr 10 mg PO DAILY Trelegy Ellipta 100-62.5-25 mcg Blister With Device 1 inh INHALATION DAILY Patient Comments: unsure of dose, will need to check with family or pharmacy in the morning alprazolam 0.25 mg tablet 0.25 mg PO TID PRN (Reason: Anxiety) polyethylene glycol 3350 [Miralax] 17 gram Powder In Packet 17 g PO QAM Qty: 30 0RF sennosides-docusate sodium [Senokot-S] 8.6-50 mg Tablet 1 tab PO HS Qty: 30 0RF carbidopa-levodopa 25-100 mg tablet 3 tablet PO QID Rx Instructions: Take at 0800, 1200, 1600, 2000 duloxetine 60 mg capsule,delayed release(DR/EC) 60 mg PO QAM quetiapine [Seroquel] 50 mg tablet 50 mg PO BID Qty: 60 5RF diclofenac sodium 1 % Gel 2 g TOPICAL QID Rx Instructions: Apply to Bilateral knees, wrists, back melatonin 5 mg PO HS Discontinued folic acid 400 mcg Tablet 400 mcg PO DAILY coQ10 (ubiquinol) 200 mg Capsule 200 mg PO DAILY [place]-3 Plus Vitamin D3 1 cap PO DAILY brimonidine-timolol 0.2-0.5 % drops 1 drp EACH EYE BID lisinopril 10 mg tablet 10 mg PO DAILY ferrous sulfate 325 mg (65 mg iron) Tablet,Delayed Release (Dr/Ec) 325 mg PO DAILY Qty: 30 0RF tamsulosin 0.4 mg Capsule 0.4 mg PO QAM Qty: 30 0RF furosemide 20 mg Tablet 20 mg PO DAILY Qty: 30 0RF Eliquis 5 mg tablet 5 mg PO BID Qty: 180 3RF cetirizine 10 mg Tablet 10 mg PO DAILY B-complex with vitamin C Tablet 1 tablet PO DAILY Stages Men's Multi-Vitamin 200 mcg-300 unit-20 mcg Tablet 1 tablet PO DAILY TobraDex 0.3-0.1 % ointment 1 applic RIGHT EYE DAILY Rx Instructions: AM magnesium oxide 400 mg (241.3 mg magnesium) tablet 400 mg PO DAILY cranberry extract 500 mg Tablet 500 mg PO DAILY atorvastatin 40 mg tablet 40 mg PO HS ascorbic acid (vitamin C) 1,000 mg Tablet 1 g PO DAILY aspirin 81 mg Tablet,Delayed Release (Dr/Ec) 81 mg PO HS d-mannose 500 mg Capsule 500 mg PO Q12H Patient Comments: bringing in Rx Instructions: Patient's brought his own medication Date of admission: 05/31/24 16:34 Primary Care Provider: Mike Mcwilliams Admitting Provider: Alphonso Cardenas Attending physician on admission: Eboni Christian Condition: Stable Quality VTE Prophylaxis VTE prophylaxis: mechanical ordered Hospitalist MIPS Heart Failure (Exclusion) Patient has history of Heart Transplant or Left Ventricular Assistive Device?: No IF YES, STOP HERE Heart Failure (Qualifier) Patient has current or prior documentation of LVEF less than or equal to 40%, or mod/servere depressed LVSF?: No IF NO, STOP HERE
[2024-06-11] MEDS: LORazepam INJ (*CRX) 2 MG/ML VIAL 1 MG IV PUSH (10:15)
--- NOTE | 2024-06-11 11:55 | PCSTNOTE ---
Spoke with patient's regarding current condition and patient's current swallowing function. She reported that she has been focusing on using a chin tuck posture with fluids. Education regarding single/small sips and second dry swallow if needed to clear residual. Discussed various soft/puree food ideas along with ways to thicken foods if pureed with response in understanding.
--- NOTE | 2024-06-11 12:23 | PC.NURSE ---
Transport called To [facility] for discharge home for Hospice Care.
[2024-06-11 12:42] VITALS: PULSE 70; RESP 22; O2SAT 88
[2024-06-11] MEDS: IPRATROPIUM 0.5 MG/ALBUTEROL SULFATE 2.5 MG AMPUL.NEB 3 ML INHALATION (12:44)
[2024-06-11 12:50] VITALS: PULSE 74; RESP 22; O2SAT 93
--- NOTE | 2024-06-11 13:18 | PC.NURSE ---
Patient discharged today at 1310 in route to [address] on [facility] [address] spoke with Kathleen to inform patient is in route to home residence.
[2024-06-11 13:25] VITALS: O2SAT 89
--- NOTE | 2024-06-11 13:35 | PC.NURSE ---
Discharge instructions reviewed with patient's . [facility] to transport patient to home in [place].
--- NOTE | 2024-06-12 10:52 | PC.NURSE ---
Discharge call back complete, doing ok, all equipment set up by hospice, no questions at this time
== END 2024-06-11 13:10 | disposition hospice, home (50) | DRG 948 ==
PROVIDERS: Nurse Practitioner Family; Admitting Provider Internal Medicine; PCP Family Medicine; Visit Provider Nurse Practitioner Acute Care
DX: R53.1 Weakness (principal); N39.0 Urinary tract infection, site not specified; N17.9 Acute kidney failure, unspecified; I10 Essential (primary) hypertension; I25.10 Atherosclerotic heart disease of native coronary artery without angina pectoris; J98.4 Other disorders of lung; J43.9 Emphysema, unspecified; N31.9 Neuromuscular dysfunction of bladder, unspecified; R33.9 Retention of urine, unspecified; R26.9 Unspecified abnormalities of gait and mobility; M48.061 Spinal stenosis, lumbar region without neurogenic claudication; M54.50 Low back pain, unspecified; G89.4 Chronic pain syndrome; G20.A1 Parkinson's disease without dyskinesia, without mention of fluctuations; F32.A Depression, unspecified; Z96.89 Presence of other specified functional implants; I25.2 Old myocardial infarction; Z87.820 Personal history of traumatic brain injury; Z79.82 Long term (current) use of aspirin; Z95.5 Presence of coronary angioplasty implant and graft; Z86.711 Personal history of pulmonary embolism; Z79.01 Long term (current) use of anticoagulants; Z51.5 Encounter for palliative care
CPT/HCPCS: 36415; 36600; 71045; 80048; 80053; 81001; 82550; 82805; 83735; 83880; 85018; 85025; 87077; 87086; 87088; 87186; 92523; 92526; 92610; 94640; 97110; 97162; 97166; 97530; 97535; A9270; J1940; J2060; J2270; J7042